=== PATIENT | male | born 1955 | race Caucasian/White ===

== ENCOUNTER → 2016-10-25 | Outpatient (CLI) | payer BC ==
[2016-10-25 07:15] LABS: EKG EKG PERFORMED
[2016-10-25 07:44] LABS: Basophils % (A) 0 %; CH 25.8; CHCM 31.6; Eosinophils # (A) 0.2 k/uL (0-0.7); Eosinophils % (A) 2 %; HCT 43.3 % (39.0-53.0); HDW 2.96; HGB 13.5 gm/dL (13.0-17.5); Hypochromasia Slight; Luc # (Auto) 0.14; Luc % (Auto) 2; Lymphocytes # (A) 1.2 k/uL (1.0-4.8); Lymphocytes % (A) 14 %; MCH 25.5 pg (25.0-35.0); MCHC 31.1 g/dL (31.0-37.0); Mean Platelet Volume 7.1; Monocytes # (A) 0.6 k/uL (0-1.0); Monocytes % (A) 7 %; Neutrophils # (A) 6.5 k/uL (1.3-7.7); Neutrophils % (A) 76 %; RBC 5.28 m/uL (4.30-5.90); RDW 13.7 % (11.5-15.5); WBC 8.5 k/uL (3.8-10.6); WBC (Perox) 8.93
[2016-10-25 07:54] LABS: Partial Thromboplastin Time 24.6 sec (22.0-30.0); Prothrombin Time 10.3 sec (9.0-12.0)
[2016-10-25 08:06] LABS: Anion Gap 12 mmol/L; Blood Urea Nitrogen 19 mg/dL (9-20); Carbon Dioxide 28 mmol/L (22-30); Chloride 104 mmol/L (98-107); Glucose 118 mg/dL (74-99); Magnesium 2.1 mg/dL (1.6-2.3); Non-African American GFR(MDRD) >60 (>60 ml/min/1.73 sqM); Potassium 4.8 mmol/L (3.5-5.1); Sodium 144 mmol/L (137-145)
--- NOTE | 2016-10-25 08:22 | XR ---
EXAMINATION TYPE: XR chest 2V DATE OF EXAM: 10/25/2016 7:56 AM COMPARISON: Prior chest x-ray 18 Mar 2013, CT abdomen pelvis 27 August 2016 HISTORY: Preop hiatal hernia surgery TECHNIQUE: Frontal and lateral views of the chest are obtained. FINDINGS: Similar findings. No airspace disease, pneumothorax, or pleural effusion. Postop changes n oted to the right shoulder. Heart is is stable, retrocardiac density compatible with large hiatal her ritika.. IMPRESSION: Hiatal hernia. No acute cardiopulmonary disease.
[2016-10-25 09:06] LABS: Hemoglobin A1C 5.6 % (4.2-6.1)
== END | disposition home or self-care (01) ==
LOC: LABPAT 06:50
PROVIDERS: ATTEND Surgery
DX: Z01.818 Encounter for other preprocedural examination (principal); K44.9 Diaphragmatic hernia without obstruction or gangrene; K43.9 Ventral hernia without obstruction or gangrene; E11.9 Type 2 diabetes mellitus without complications; E66.01 Morbid (severe) obesity due to excess calories
CPT/HCPCS: 36415; 71020; 80051; 82565; 82947; 83036; 83735; 84520; 85025; 85610; 85730; 86850; 86900; 86901; 93005

== ENCOUNTER 2017-04-30 09:19 | Day surgery (SDC) | payer BC ==
[2017-04-26 13:28] VITALS: BMI 32.1
[~2017-04-30 09:19] MED LIST: LACTATED RINGERS 1,000 ML IV SCH
[2017-04-30 11:15] VITALS: TEMP 98.7
[2017-04-30] MEDS ORDERED: LIDOCAINE 1% INJ 10MG/ML (20 ML MDV) ONE (11:15)
[2017-04-30] MEDS ORDERED: PROPOFOL 10 MG/ML 20 ML VIAL IV ONE (11:15)
--- NOTE | 2017-04-30 11:50 | P.PCN ---
Date of Procedure: 04/30/17 Preoperative Diagnosis: Postoperative Diagnosis: Procedure(s) Performed: Procedure: Esophagogastroduodenoscopy and biopsy. Preoperative diagnosis: Symptomatic reflux. Postoperative diagnosis: 1. S/P esophageal resection with gastric pull-through. 2. Retained partially digested food and fluid in the stomach freely regurgitating into the esophagus with no evidence of mechanical obstruction to the gastric outlet or any endoscopic evidence of esophagitis. 3. Esophageal biopsies obtained. Preparation and sedation: Was provided by anesthesia. Brief clinical history: With the patient on his left lateral decubitus position and after informed consent and adequate sedation, I passed the Olympus-GIF 160 video upper endoscope through the cricopharyngeus down the esophagus. The patient had prior esophagectomy and the anastomosis with the stomach was noted around 25 cm from the incisors. There was large amounts of retained partially digested food and fluid in the stomach freely regurgitating into the esophagus. No obvious esophagitis was noted endoscopically. I was able to advance the endoscope into the antrum and the pylorus appeared without any evidence of stenosis or obstruction and I was able to pass the endoscope without difficulty into the small intestine. No obvious abnormalities were seen in the small intestine within the stomach. I obtained biopsies then the endoscope was withdrawn. The patient tolerated the procedure well. Plan: The patient was reassured. It is likely that a major component of his symptoms are related to gastric emptying issues. Patient will be advised about dietary measures and consideration can be given for a trial with Reglan before meals. He will discuss that with you. I will be happy to see him in the future if his symptoms persist. Implants: Indications for Procedure: Operative Findings: Description of Procedure:
[2017-04-30 12:13] VITALS: BP 133/80; PULSE 74; RESP 20
== END 2017-04-30 12:24 | disposition home or self-care (01) ==
LOC: ORWHC2ENDO 09:19
DX: Z90.49 Acquired absence of other specified parts of digestive tract (principal); K21.0 Gastro-esophageal reflux disease with esophagitis; K20.0 Eosinophilic esophagitis; R25.1 Tremor, unspecified; Z79.82 Long term (current) use of aspirin; Z79.899 Other long term (current) drug therapy
CPT/HCPCS: 88305; 43239; J2001; J2704

== ENCOUNTER → 2017-05-10 | Outpatient (CLI) | payer BC ==
[2017-05-13 15:13] LABS: C-ANCA <1:20 Titer (<1:20); P-ANCA <1:20 Titer (<1:20)
== END | disposition home or self-care (01) ==
LOC: LABWHC1 06:54
PROVIDERS: ATTEND Psychiatry & Neurology Neurology
DX: G62.9 Polyneuropathy, unspecified (principal)
CPT/HCPCS: 36415; 82607; 83036; 84165; 84207; 85652; 86255; 86618

== ENCOUNTER → 2017-06-06 | Outpatient (CLI) | payer BC | END | disposition home or self-care (01) | LOC: LABWHC1 07:44 | PROVIDERS: ATTEND Psychiatry & Neurology Neurology | DX: Z53.9 Procedure and treatment not carried out, unspecified reason (principal) | CPT/HCPCS: 36415 ==

== ENCOUNTER → 2017-06-12 | Outpatient (CLI) | payer BC | END | disposition home or self-care (01) | LOC: LABWHC1 08:12 | PROVIDERS: ATTEND Psychiatry & Neurology Neurology | DX: G62.9 Polyneuropathy, unspecified (principal); Z85.01 Personal history of malignant neoplasm of esophagus | CPT/HCPCS: 36415 ==

== ENCOUNTER → 2017-06-17 | Outpatient (CLI) | payer BC ==
[2017-06-17 08:06] LABS: Non-African American GFR(MDRD) >60 (>60 ml/min/1.73 sqM)
--- NOTE | 2017-06-17 11:53 | MR ---
EXAMINATION TYPE: MR lumbar spine wo/w con DATE OF EXAM: 06/17/2017 COMPARISON: NONE HISTORY: rt si radiculopathy, hilary leg numbness TECHNIQUE: Multiplanar, multisequence images of the lumbar spine were acquired utilizing 10 mL intravenous Gadav ist gadolinium contrast. L1-L2: Normal disc appearance without desiccation. No herniation, protrusion or disc bulging. No ca nal stenosis is present. Foramina are patent bilaterally. L2-L3: Small broad-based disc bulge is present without focality. No evidence of neuroforaminal stenos is or spinal canal stenosis. L3-L4: Broad-based disc bulge is seen creating mild bilateral neural foraminal narrowing and no spina l canal stenosis. L4-L5: Broad-based disc bulge with tiny annular fissure is present creating moderate bilateral neural foraminal narrowing in combination with facet arthropathy and mild ligamentum flavum buckling. No sp inal canal stenosis. L5-S1: Broad-based disc bulge is seen without significant neuroforaminal stenosis or narrowing althou gh tiny annular fissure is seen left paracentral. Lumbar segments are intact. No paraspinal masses are identified. Conus medullaris has a normal appe arance. Conus medullaris terminates at T12-L1. Small T1 hypointense and T2 hypointense lesion is seen within the anterior L4 vertebral body which may correspond to a bone island. This does not demonstra te enhancement. Postsurgical this subcentimeter T2 and T1 hyperintense probable hemangioma is also no manuel. Hemangioma is also seen of T12 measuring 1.2 cm. Right lower pole of the kidneys obscured by pulsation artifact from the aorta an patient motion. No n erve root clumping or abnormal enhancement is seen. IMPRESSION: 1. No discrete disc herniation or abnormal enhancement. 2. Multilevel degenerative disc disease with annular fissures at L4-L5 and L5-S1. Disc bulge at L4-L5 creates moderate bilateral neural foraminal narrowing in combination with facet arthropathy.
== END | disposition home or self-care (01) ==
LOC: RADMRIMAIN 07:45
PROVIDERS: ATTEND Psychiatry & Neurology Neurology
DX: M51.17 Intervertebral disc disorders with radiculopathy, lumbosacral region (principal); M99.73 Connective tissue and disc stenosis of intervertebral foramina of lumbar region; M12.88 Other specific arthropathies, not elsewhere classified, other specified site; R20.2 Paresthesia of skin
CPT/HCPCS: 82565; 72158; A9581

== ENCOUNTER → 2017-07-30 | Outpatient (CLI) | payer BC ==
[2017-07-30 09:55] LABS: CH 26.9; CHCM 30.2; HCT 45.9 % (39.0-53.0); HDW 2.53; HGB 14.1 gm/dL (13.0-17.5); Hypochromasia Marked; MCH 27.5 pg (25.0-35.0); MCHC 30.7 g/dL (31.0-37.0); MCV 89.5 fL (80.0-100.0); RBC 5.13 m/uL (4.30-5.90); RDW 15.4 % (11.5-15.5); WBC 7.5 k/uL (3.8-10.6)
[2017-07-30 10:18] LABS: ALT 37 U/L (21-72); AST 21 U/L (17-59); Alkaline Phosphatase 100 U/L (38-126); Anion Gap 11 mmol/L; Blood Urea Nitrogen 22 mg/dL (9-20); Calcium 9.1 mg/dL (8.4-10.2); Carbon Dioxide 28 mmol/L (22-30); Chloride 105 mmol/L (98-107); Glucose 104 mg/dL (74-99); Non-African American GFR(MDRD) >60 (>60 ml/min/1.73 sqM); Potassium 5.3 mmol/L (3.5-5.1); Sodium 144 mmol/L (137-145); Total Bilirubin 0.3 mg/dL (0.2-1.3); Total Protein 7.1 g/dL (6.3-8.2)
--- NOTE | 2017-07-30 10:22 | CT ---
EXAMINATION TYPE: CT chest w con DATE OF EXAM: 07/30/2017 COMPARISON: 07/30/2016 HISTORY: follow up to esophagus CA CT DLP: 813 mGycm Automated exposure control for dose reduction was used. CONTRAST: CT scan of the chest is performed with IV Contrast, patient injected with 100 mL of Omnipaque 300. FINDINGS: LUNGS: The lungs are grossly clear, there is no concerning parenchymal mass or nodule identified. T here is no pleural effusion or pneumothorax seen. The tracheobronchial tree is patent. MEDIASTINUM: There is evidence of esophagectomy and gastric pull-through procedure. Overall appearanc e is stable relative to the prior study. No evidence for recurrent or residual tumoral mass. Thoracic aorta is of normal caliber. The heart is not enlarged. UPPER ABDOMEN: Nodular thickening of the right adrenal gland. OTHER: Persistent nodule right thyroid lobe. IMPRESSION: 1. Stable gastric pull-through procedure with esophagectomy. No evidence for recurrent neoplasm. 2 st able nodular thickening right adrenal gland.
== END | disposition home or self-care (01) ==
LOC: RADCTMAIN 09:29
PROVIDERS: ATTEND Thoracic Surgery (Cardiothoracic Vascular Surgery)
DX: C15.5 Malignant neoplasm of lower third of esophagus (principal); Z90.49 Acquired absence of other specified parts of digestive tract
CPT/HCPCS: 80053; 85027; 71260; 36415; Q9967

== ENCOUNTER → 2018-04-11 | Outpatient (CLI) | payer BC ==
--- NOTE | 2018-04-11 08:50 | CT ---
EXAMINATION TYPE: CT chest w con DATE OF EXAM: 04/11/2018 COMPARISON: CT chest July 30, 2017 and older studies. Outside chest x-ray from yesterday. HISTORY: RLL pneumonia, history of esophagus CA CT DLP: 595.2 mGycm. Automated Exposure Control for Dose Reduction was Utilized. TECHNIQUE: CT scan of the thorax is performed following with IV Contrast, patient injected with 100 mL of Isovue 300. FINDINGS: LUNGS: There is persistent minimal medial right basilar linear scarring and/or atelectasis. No new s uspicious nodule or mass is present. There is no pleural effusion or pneumothorax seen bilaterally. The tracheobronchial tree is patent. MEDIASTINUM: There are no greater than 1 cm hilar or mediastinal lymph nodes. No cardiomegaly or pe ricardial effusion is seen. There is three-vessel coronary calcification which is noted marker for co ronary artery disease. Surgical changes from esophagectomy and gastric pull-up procedure are redemons trated. OTHER: Slight nodular thickening right adrenal gland axial image 60 is unchanged from multiple older studies and presumed benign. IMPRESSION: No suspicious new or acute pulmonary process. Postsurgical changes redemonstrated and sta ble.
== END | disposition home or self-care (01) ==
LOC: RADCTMAIN 07:32
PROVIDERS: ATTEND Internal Medicine
DX: J18.1 Lobar pneumonia, unspecified organism (principal)
CPT/HCPCS: 71260; Q9967

== ENCOUNTER → 2018-07-30 | Outpatient (CLI) | payer BC ==
--- NOTE | 2018-07-30 11:21 | CT ---
EXAMINATION TYPE: CT chest w con DATE OF EXAM: 07/30/2018 COMPARISON: 04/11/2018 HISTORY: Esophageal cancer CT DLP: 518.40 mGycm Automated exposure control for dose reduction was used. CONTRAST: CT scan of the chest is performed with IV Contrast, patient injected with 100 ml mL of Isovue 300. FINDINGS: LUNGS: There is persistent minimal medial right basilar linear scarring and/ or atelectasis. No new s uspicious nodule or mass is present. There is no pleural effusion or pneumothorax seen bilaterally. T he tracheobronchial tree is patent. MEDIASTINUM: There are no greater than 1 cm hilar or mediastinal lymph nodes. No pericardial effusi on is seen. There is three- vessel coronary calcification which is noted marker for coronary artery disease. Surg ical changes from esophagectomy and gastric pull-up procedure are redemonstrated. OTHER: Nodularity to the right adrenal gland is stable. Hypertrophic and degenerative change of the vertebral column. Thyroid nodule noted involving the right lobe. Chronic appearing rib deformity with in the upper posterior right rib cage. IMPRESSION: 1. Stable postsurgical change with no pathologic adenopathy or suspicious nodule. 2. Right thyroid nodule. 3. Stable right adrenal gland nodularity
== END ==
LOC: RADCTMAIN 08:40
PROVIDERS: ATTEND Thoracic Surgery (Cardiothoracic Vascular Surgery)
DX: C15.5 Malignant neoplasm of lower third of esophagus (principal)
CPT/HCPCS: 71260; Q9967

== ENCOUNTER → 2018-09-17 | Outpatient (CLI) | payer BC ==
[2018-09-17 09:39] LABS: HCT 45.4 % (39.0-53.0); HGB 15.3 gm/dL (13.0-17.5); MCH 30.3 pg (25.0-35.0); MCHC 33.8 g/dL (31.0-37.0); MCV 89.9 fL (80.0-100.0); Mean Platelet Volume 6.5; Platelet Count 245 k/uL (150-450); RBC 5.05 m/uL (4.30-5.90); RDW 13.2 % (11.5-15.5); WBC 7.7 k/uL (3.8-10.6)
[2018-09-17 09:53] LABS: Partial Thromboplastin Time 24.1 sec (22.0-30.0); Prothrombin Time 9.9 sec (9.0-12.0)
[2018-09-17 09:58] LABS: ALT 26 U/L (21-72); AST 21 U/L (17-59); Albumin 3.8 g/dL (3.5-5.0); Alkaline Phosphatase 73 U/L (38-126); Anion Gap 10 mmol/L; Blood Urea Nitrogen 21 mg/dL (9-20); Calcium 9.3 mg/dL (8.4-10.2); Carbon Dioxide 24 mmol/L (22-30); Chloride 108 mmol/L (98-107); Glucose 110 mg/dL (74-99); Potassium 4.7 mmol/L (3.5-5.1); Sodium 142 mmol/L (137-145); Total Bilirubin 0.4 mg/dL (0.2-1.3); Total Protein 6.6 g/dL (6.3-8.2)
[2018-09-17 10:07] LABS: Appearance,Urine Clear (Clear); Bilirubin,Urine Negative (Negative); Blood,Urine Trace (Negative); Color,Urine Yellow; Glucose,Urine (UA) Negative (Negative); Ketones,Urine Negative (Negative); Leukocyte Esterase,Urine Negative (Negative); Mucus,Urine Rare /hpf; Nitrite,Urine Negative (Negative); Protein,Urine Negative (Negative); RBC,Urine 3 /hpf (0-5); Specific Gravity,Urine 1.023 (1.001-1.035); Urobilinogen,Urine <2.0 mg/dL (<2.0); WBC,Urine 2 /hpf (0-5)
== END ==
LOC: LABPAT 08:24
PROVIDERS: ATTEND Orthopaedic Surgery
DX: Z01.818 Encounter for other preprocedural examination (principal); Z01.812 Encounter for preprocedural laboratory examination
CPT/HCPCS: 36415; 80053; 81001; 85027; 85610; 85730; 87070; 93005

== ENCOUNTER 2018-10-07 09:15 | Inpatient (IN) | payer BC, MEDICARE ==
[~2018-10-07 09:15] MED LIST changes: +ACETAMINOPHEN TAB 500 MG TAB PO ONE; +DEXAMETHASONE SOD PHOSPHATE 10 MG/ML 1 ML VIAL IV ONE; +HYDROmorphone 0.5 MG/0.5 ML SYRINGE IVP PRN; +LIDOCAINE 1% 20 ML VIAL (10MG/ML) FOR IV START INTRADERMA PRN; +MELOXICAM 7.5 MG TAB PO ONE; +MIDAZOLAM (PF) 2 MG/2 ML VIAL IV PRN; +ONDANSETRON 4 MG/2 ML VIAL IVP ONE; +ROPIVACAINE 246.25 MG, EPINEPHrine 0.5 MG, KETOROLAC 30 MG, cloNIDine HCL/PF 80 MCG, WA... MISCELLANE ONE; +SCOPOLAMINE 1.5MG/72HR PATCH TRANSDERM ONE; +TRANEXAMIC ACID 1,000 MG in SODIUM CHLORIDE 0.9% 50 ML IVPB ONE; +ceFAZolin IN SWFI 2 GM/20 ML SYRINGE IVP ONE
[2018-10-07] MEDS ORDERED: NA PHOS,M-B/NA PHOS,DI-BA 133 ML ENEMA RECTAL PRN (11:12)
[2018-10-07] MEDS ORDERED: HYDROmorphone 0.5 MG/0.5 ML SYRINGE IVP PRN ×2 (11:12)
[2018-10-07] MEDS ORDERED: DIAZEPAM 5 MG TAB PO PRN (11:12)
[2018-10-07] MEDS ORDERED: hydrOXYzine PAMOATE 25 MG CAP PO PRN (11:12)
[2018-10-07] MEDS ORDERED: HYDROmorphone 1 MG/ML 1 ML SYRINGE IVP PRN (11:12)
[2018-10-07] MEDS ORDERED: MAGNESIUM HYDROXIDE 2,400 MG/10 ML CUP PO PRN (11:12)
[2018-10-07] MEDS ORDERED: NALOXONE 0.4 MG/ML 1 ML VIAL IV PRN (11:12)
[2018-10-07] MEDS ORDERED: HYDROcodone/APAP 5-325MG 1 EACH TAB PO PRN ×2 (11:12)
[2018-10-07] MEDS ORDERED: ONDANSETRON 4 MG/2 ML VIAL IVP PRN (11:12)
[2018-10-07] MEDS ORDERED: BISACODYL 10 MG SUPP RECTAL PRN (11:12)
[2018-10-07] MEDS ORDERED: SODIUM CHLORIDE 0.9% 1,000 ML IV SCH (11:15)
[2018-10-07] MEDS ORDERED: TRANEXAMIC ACID 1,000 MG/10 ML VIAL ONE (11:21)
[2018-10-07] MEDS ORDERED: PROPOFOL 10 MG/ML 20 ML VIAL IV ONE (11:21)
[2018-10-07] MEDS ORDERED: PHENYLEPHRINE-0.9% NACL SYG 1 MG/10 ML SYRINGE ONE (11:21)
[2018-10-07] MEDS ORDERED: MIDAZOLAM 2 MG/2 ML VIAL ONE (11:21)
[2018-10-07] MEDS ORDERED: SODIUM CHLORIDE 0.9% 100 ML BAG ONE (11:21)
[2018-10-07] MEDS ORDERED: ePHEDrine SULFATE/0.9% NACL/PF 50 MG/5 ML SYRINGE IV ONE (11:21)
[2018-10-07] MEDS ORDERED: ceFAZolin 3,000 MG in SODIUM CHLORIDE 0.9% IRRIGATIO 3,000 ML IRRIGATION ONE (11:53)
[2018-10-07] MEDS ORDERED: LACTATED RINGERS 1,000 ML IV ONE ×2 (11:59→13:08)
[2018-10-07] MEDS ORDERED: ROPIVACAINE 1,100 MG, SODIUM CHLORIDE 0.9% 500 ML 330 ML MISCELLANE PRN ×2 (12:22)
--- NOTE | 2018-10-07 12:30 | P.ONQ ---
Anesthesiology Proc Note - PNB - Peripheral Nerve Block Performed Right Adductor Canal Infusion Time Out Performed: Yes Procedure Start Time: 10:23 Procedure Stop Time: :34 Indication: Acute Post-Operative Pain, Requested by physician Sedation Type: Sedate with meaningful contact maintained Preparation: Sterile Dressing Position: Supine Catheter: Indwelling Needle Types: On-Q Needle Size: 100mm (4") Needle Gauge: 21 Technique: Ultrasound Injectate: 0.5% Ropivacaine (see comment for volume) (ropi .5% 25 cc) Blood Aspirated: No Pain Paresthesia on Injection Noted: No Resistance on Injection: Normal Events: Uneventful and Well Tolerated
--- NOTE | 2018-10-07 12:45 | P.OP ---
Date of Procedure: 10/07/18 Preoperative Diagnosis: Severe osteoarthritis right knee Postoperative Diagnosis: Severe osteoarthritis right knee Procedure(s) Performed: Right total knee arthroplasty Implants: Jimenez [employer]hew Journey II CR Oxinium cruciate retaining femoral component size 6, right [employer] Journey right nonporous tibial baseplate size 6 [employer] Journey II, XLPE CR articular insert, size 9 mm, Size 5-6 right [employer] Journey BCS resurfacing oval patellar component, 32 mm All components were cemented using [place]os R bone cement.. The articulation is Oxinium on polyethylene. Anesthesia: spinal Surgeon: Everton Huitron Welt Drawer #1: Moni Phillips Estimated Blood Loss (ml): 50 Pathology: other (Bone and cartilage) Condition: stable Disposition: PACU Indications for Procedure: After failure of conservative treatment we discussed the surgical and nonsurgical treatment options at length. Patient wishes to proceed with a total knee arthroplasty. Complications specific to this procedure were discussed at length, including but not limited to infection, bleeding, stiffness , and nerve injury. Patient is aware of all these complications and informed consent was obtained Operative Findings: The operative findings are consistent with severe osteoarthritis of the right knee Description of Procedure: Patient was seen in the preoperative area consent was reviewed and operative site was marked with a skin marker. An adductor canal pain catheter was placed by anesthesia in the preoperative area. Patient was then brought to the operating room and given preoperative antibiotics intravenously. A spinal anesthetic was administered by the anesthesia department. A tourniquet was placed on the upper thigh and the lower extremity was prepped and draped in usual sterile fashion. A gram of transexamic acid was given. A universal timeout was then performed which confirmed the patient's name, surgical site, ALLERGIES, and consent. The lower extremity was then exsanguinated and tourniquet was inflated to 250 mmHg. A standard and anterior midline approach to the knee was performed. The skin and subcutaneous tissue was dissected down to the patellar tendon. A medial parapatellar arthrotomy was then performed. The knee was then extended, the patellar was everted, and the knee was again flexed. Anterior horns of both menisci were excised, and a release was performed to the posterior medial aspect of the knee. On gross visual inspection, there was complete loss of articular cartilage in the medial and patellofemoral joint spaces. There was also significant cartilage damage in the lateral compartment. There were multiple periarticular osteophytes which were then removed with a Ronguer. The femoral canal was then opened with the appropriate drill, and the intramedullary femoral cutting guide was then placed and set for 5 of valgus. The distal femoral cutting block was then pinned in place, and the distal femur was then cut. The cutting block was then removed and the cut was checked for flatness. Next, the sizing guide was then placed and set for 3 external rotation based off of the epicondylar axis and Whitesides line. After the femur was sized, the appropriate 4-in-1 cutting block was then pinned in place. The anterior condyles were cut without notching. The posterior and chamfer cuts were performed while protecting the collateral ligaments. The cutting block was then removed, and the femoral canal was plugged with autologous bone. Attention was then directed to the tibia. The remaining ACL was removed with a Ronguer, and the tibia was then gently subluxed forward with a large bent knee retractor. Any remaining menisci was excised. The posterior lateral corner was cauterized in order to cauterize the lateral geniculate artery. The extra medullary tibial cutting guide was then placed, set for the appropriate rotation , slope, and depth of resection. The proximal tibia cutting guide was then pinned in place. Proximal tibia was then cut and sized. Next trials were then placed with the appropriate-sized insert. The knee was able to fully extend and flex to 130 and was stable throughout all range of motion. The knee was then extended, patella everted. Patella was then measured, and then using an osteotomy guide, the patella was cut at the appropriate level. The patella was then measured and drilled and the patella trial was then placed. The knee was then taken through range of motion with the patella trial and the patella tracked normally. The knee was then extended patella trial was then removed and the patella was everted. Knee was then flexed and lug holes were drilled through the femoral trial and the femoral trial was then removed. The tibial was then exposed, and the tibial broach guide was then pinned in place after it was set for the appropriate rotation to allow for the most coverage without overhang. The tibia was then reamed and broached. The cut surfaces of bone were then irrigated with pulsatile lavage. The posterior structures were injected with the ropivacaine solution. The knee was also irrigated with Irrisept solution. The components were then opened, the cement was mixed, and the components were then cemented in place. The cement was allowed to harden with the knee in full extension. While the cement was hardening, the remaining soft tissues were then injected with a ropivacaine solution, which consisted of 246.25 mg of ropivacaine, 0.5 mg of epinephrine, 30 mg of Toradol, 80 g of clonidine, and 48.45 mL of sterile water, for a total of 100 mL of fluid injected. After the cemented hardened. The tourniquet was released, and hemostasis was obtained. A second gram of transexamic acid was given. The knee was again irrigated. The knee was again taken through range of motion and found to be stable throughout all range of motion of 0-130 , and the patella tracked normally. The fascia was then closed with #2 strata fix suture. The subcutaneous tissue was closed with 3-0 Vicryl and 3-0 strata fix. Dermabond glue was used for the skin and placed with the knee in flexion. The patient was placed in a sterile silver dressing. Patient was then transferred to recovery room in stable condition. The library media assistant JEWELS Pang was required due the complexity surgery and the need for a skilled surgical brace maker. She assisted in positioning, draping, retraction, and closure of the wound.
--- NOTE | 2018-10-07 14:19 | XR ---
EXAMINATION TYPE: XR knee limited RT DATE OF EXAM: 10/07/2018 COMPARISON: NONE TECHNIQUE: Two views submitted HISTORY: Post op FINDINGS: There is a prosthetic knee in near anatomic alignment. There is soft tissue edema and emphysema. IMPRESSION: 1. Postoperative change. Appears in near-anatomic alignment
[2018-10-07 16:23] VITALS: BMI 32.8
[2018-10-07] MEDS: ceFAZolin IN SWFI 2 GM/20 ML SYRINGE IVP SCH (19:35)
[2018-10-07] MEDS: cloNIDine HCL 0.1 MG TAB PO SCH (20:49)
[2018-10-07] MEDS: FAMOTIDINE 20 MG TAB PO SCH (20:49)
[2018-10-07] MEDS ORDERED: SENNOSIDES-DOCUSATE SODIUM 1 EACH TAB PO SCH (21:00)
[2018-10-07 21:30] VITALS: RESP 16
[2018-10-07] MEDS ORDERED: FORMOTEROL FUMARATE 20 MCG/2 ML NEBU INHALATION SCH (21:52)
[2018-10-08] MEDS: ceFAZolin IN SWFI 2 GM/20 ML SYRINGE IVP SCH (02:56)
[2018-10-08] MEDS: AMANTADINE HCL 100 MG CAP PO SCH ×2 (02:56→08:10)
--- NOTE | 2018-10-08 06:10 | P.PN ---
Progress Note - Text Progress Note Date: 10/08/18 My adductor canal catheter rounds Right adductor canal catheter postoperative day 1 Patient VAS 4 out of 10 Tolerating food well Denies any complaints Catheter site clean dry and intact Continue current plan and management primary team to manage
[2018-10-08] MEDS ORDERED: PANTOPRAZOLE 40 MG TABLET PO SCH (07:30)
--- NOTE | 2018-10-08 07:33 | CONS ---
CONSULTATION DATE OF SERVICE: October 07, 2018. REASON FOR CONSULTATION: Medical management requested by Dr. Huitron. CONSULTATION: This is a pleasant 63-year-old patient of Dr. Rivas. The patient has undergone right total knee arthroplasty. Postprocedure no chest pain or short of breath. No nausea, vomiting. Chronic stable medical conditions include COPD, GERD, hyperlipidemia, hypertension, peripheral neuropathy, and some baseline tremors. Sitting up. Did tolerate his evening meal. Pain is controlled. Denies any cardiac history. REVIEW OF SYSTEMS: CONSTITUTIONAL: None. HEENT: None. RESPIRATORY: Occasionally short of breath. CARDIOVASCULAR: Heartburn. GENITOURINARY none. MUSCULOSKELETAL: Arthritic pain in joints. DERMATOLOGICAL, HEMATOLOGIC, LYMPHATIC: none. PSYCHIATRY none. NEUROLOGICAL: Occasional tremors. PAST MEDICAL HISTORY: COPD, GERD, hyperlipidemia, hypertension, sleep apnea in the past, peripheral neuropathy of arms and legs. Esophageal cancer. The patient has lost about pounds. Uses a cane. Tremors. PAST SURGICAL HISTORY: Appendectomy, cardiac catheterization, bilateral shoulder rotator cuff, bilateral elbow surgery to be removed, bilateral calf , right knee arthroscopy, surgery for esophageal cancer. SOCIAL HISTORY: Smoked about one pack a day for 30 years, stopped in , , retired [employer]. FAMILY HISTORY: Colon cancer. HOME MEDICATIONS: 1. Catapres 0.1 mg p.o. b.i.d. 2. Carbamazepine ER 200 mg b.i.d. 3. Omeprazole 40 mg a day. 4. Atrovent 1 vial inhalation q.i.d. p.r.n. 5. 1 puff b.i.d. 6. Pepcid 20 mg b.i.d. 7. Aspirin 81 mg daily. 8. Symmetrel 100 mg p.o. b.i.d. ALLERGIES: None. PHYSICAL EXAMINATION: VITAL SIGNS: Temperature 97.9, pulse 94, respiration 16, blood pressure 113/62, pulse ox 96% on room air. GENERAL APPEARANCE: Well built. BMI 32.9. Sitting at the edge of the bed, comfortable. EYES: Pupils equal. Conjunctivae normal. HEENT: External appearance of nose and ears normal. Oral cavity normal. NECK: JVD not raised. Mass not palpable. RESPIRATORY effort normal. LUNGS: Slightly decreased breath sounds. CARDIOVASCULAR: 1st and 2nd sounds normal. No edema. ABDOMEN: Soft, nontender. Liver and spleen not palpable. LYMPHATICS: No lymph nodes palpable in the neck and axilla. PSYCHIATRY: Alert and oriented x3. Mood and affect normal. NEUROLOGICAL: Pupils equal. Cranial nerves grossly intact. Power and sensation grossly intact. MUSCULOSKELETAL: Dressing over the right knee. INVESTIGATIONS: Blood work from 09/17/2018 shows a white count 7.7, hemoglobin 15.3, potassium 4.7, BUN 21, creatinine 0.76. ASSESSMENT: 1. Right total knee arthroplasty. 2. Chronic obstructive pulmonary disease in an ex-smoker. 3. Gastroesophageal reflux disease. 4. Hyperlipidemia. 5. Essential hypertension. 6. Peripheral neuropathy. 7. History of esophageal cancer treated with surgery 7 years ago. PLAN: Home medications are resumed. The patient on Xarelto for DVT prophylaxis. Also getting IV fluids. Pain is well controlled. Questions were answered. Thank you, Dr. Huitron. Copy to Dr. Rivas. MMODL / IJN: [id number] /
[2018-10-08] MEDS ORDERED: IPRATROPIUM 0.5 MG/2.5 ML NEBU INHALATION SCH (08:00)
[2018-10-08] MEDS: cloNIDine HCL 0.1 MG TAB PO SCH (08:10)
[2018-10-08] MEDS: FAMOTIDINE 20 MG TAB PO SCH (08:10)
[2018-10-08 08:23] VITALS: BP 145/89; PULSE 84; TEMP 98.1
--- NOTE | 2018-10-08 08:39 | P.DS ---
Providers Date of admission: 10/07/18 09:31 Expected date of discharge: 10/08/18 Attending physician: Everton Huitron Consults: 10/07/18 11:12 Consult Physician Routine Consulting Provider: Gurdeep Dixon Consult Reason/Comments: medical management and anticoagulation Do you want consulting provider notified?: Yes Primary care physician: Ronal Rivas - Discharge Diagnosis(es) (1) Primary osteoarthritis of right knee Current Visit: Yes Status: Acute (2) S/P total knee arthroplasty Current Visit: Yes Status: Acute Hospital Course: This is a 63-year-old male with known history of degenerative arthritis of the right knee. The patient presents for evaluation. After discussion and consideration patient elects to proceed with total knee arthroplasty. The patient is seen preoperatively by Dr. Huitron and medically cleared for surgery by their primary care physician. Patient is admitted to [facility] on 10/07/2018 for total knee arthroplasty. The procedures performed without complication or sequelae. The patient is doing well postoperatively. Labs and vital signs are stable on day of discharge. On day of discharge patient's knee incision is healing well. There is minimal erythema. There is no drainage noted at this time. There is minimal soft tissue swelling to the knee. Patient has full foot and ankle motion without difficulty or pain. Neurovascular status to the right lower extremity is intact. Patient is discharged home in good condition. Please see med rec for accurate list of home medications. Plan - Discharge Summary Discharge Rx Participant: Yes New Discharge Prescriptions: New Rivaroxaban [Xarelto] 10 mg PO DAILY 11 Days #11 tab HYDROcodone/APAP 5-325MG [[place] 5-325] 1 - 2 tab PO Q4-6H PRN #84 tab PRN Reason: Pain Sennosides [Senokot] 1 tab PO BID #60 tablet No Action carBAMazepine [carBAMazepine ER] 200 mg PO BID Famotidine [Pepcid] 20 mg PO BID Amantadine HCl [Symmetrel] 100 mg PO BID Omeprazole 40 mg PO DAILY Glycopyrrolate/Formoterol Fum [Bevespi Aerosphere Inhaler] 1 puff INHALATION RT-BID cloNIDine HCL [Catapres] 0.1 mg PO BID Aspirin [Adult Low Dose Aspirin EC] 81 mg PO DAILY Ipratropium 0.02% 1 vial INHALATION RT-QID PRN PRN Reason: Shortness Of Breath Discharge Medication List carBAMazepine [carBAMazepine ER] 200 mg PO BID 09/18/16 [History] Amantadine HCl [Symmetrel] 100 mg PO BID 04/26/17 [History] Famotidine [Pepcid] 20 mg PO BID 04/26/17 [History] Omeprazole 40 mg PO DAILY 04/26/17 [History] Aspirin [Adult Low Dose Aspirin EC] 81 mg PO DAILY 10/02/18 [History] Glycopyrrolate/Formoterol Fum [Bevespi Aerosphere Inhaler] 1 puff INHALATION RT- BID 10/02/18 [History] Ipratropium 0.02% 1 vial INHALATION RT-QID PRN 10/02/18 [History] cloNIDine HCL [Catapres] 0.1 mg PO BID 10/02/18 [History] HYDROcodone/APAP 5-325MG [[place] 5-325] 1 - 2 tab PO Q4-6H PRN #84 tab 10/08/18 [ Rx] Rivaroxaban [Xarelto] 10 mg PO DAILY 11 Days #11 tab 10/08/18 [Rx] Sennosides [Senokot] 1 tab PO BID #60 tablet 10/08/18 [Rx] Follow up Appointment(s)/Referral(s): Everton Huitron DO [Doctor of Osteopathic Medicine] - 2 Weeks Ambulatory/Diagnostic Orders: Continuous Passive Motion (CPM) Machine [DME.AMB1] Time Frame: 3 Weeks, Location : None Selected Activity/Diet/Wound Care/Special Instructions: Weightbearing as tolerated with a walker. CPM 5-6h daily. Leave dressing intact. May be removed on 10/17/2018. May shower with dressing on. Please follow up with [facility] and call with any questions or concerns, . Discharge Disposition: HOME WITH HOME HEALTH SERVICES
[2018-10-08] MEDS ORDERED: ASPIRIN 81 MG PO SCH (09:00)
[2018-10-08] MEDS ORDERED: RIVAROXABAN 10 MG TAB PO SCH (09:00)
[2018-10-08 09:17] LABS: Basophils % (A) 0 %; Eosinophils # (A) 0.1 k/uL (0-0.7); Eosinophils % (A) 2 %; HCT 37.1 % (39.0-53.0); Lymphocytes # (A) 1.1 k/uL (1.0-4.8); Lymphocytes % (A) 12 %; MCH 29.4 pg (25.0-35.0); MCHC 32.3 g/dL (31.0-37.0); Mean Platelet Volume 6.5; Monocytes # (A) 0.6 k/uL (0-1.0); Monocytes % (A) 7 %; Neutrophils % (A) 78 %; Platelet Count 212 k/uL (150-450); RBC 4.08 m/uL (4.30-5.90); RDW 13.4 % (11.5-15.5)
== END 2018-10-08 13:23 | disposition home health service (06) | DRG 470 ==
LOC: 2ORMAIN 09:31 → 4SSUR 13:04
PROVIDERS: ADMIT Orthopaedic Surgery; ATTEND Orthopaedic Surgery
PROC: 0SRC069 Replacement of Right Knee Joint with Oxidized Zirconium on Polyethylene Synthetic Substitute, Cemented, Open Approach (ICD-10-PCS; principal; 2018-10-07 11:20)
DX: M17.11 Unilateral primary osteoarthritis, right knee (principal); G62.9 Polyneuropathy, unspecified; J44.9 Chronic obstructive pulmonary disease, unspecified; K21.9 Gastro-esophageal reflux disease without esophagitis; E78.5 Hyperlipidemia, unspecified; G47.30 Sleep apnea, unspecified; G25.81 Restless legs syndrome; H91.90 Unspecified hearing loss, unspecified ear; I10 Essential (primary) hypertension; Z79.82 Long term (current) use of aspirin; Z79.899 Other long term (current) drug therapy; Z85.01 Personal history of malignant neoplasm of esophagus; Z90.49 Acquired absence of other specified parts of digestive tract; Z87.891 Personal history of nicotine dependence; Z80.0 Family history of malignant neoplasm of digestive organs
CPT/HCPCS: 85025; 88305; 88311

== ENCOUNTER 2019-03-24 08:26 | Day surgery (SDC) | payer BC, MEDICARE ==
[2019-03-20 09:16] VITALS: BMI 33.0
[2019-03-24 08:50] VITALS: RESP 18; TEMP 97.6
[2019-03-24] MEDS ORDERED: LACTATED RINGERS 1,000 ML IV ONE ×2 (09:07)
--- NOTE | 2019-03-24 09:26 | P.PCN ---
Date of Procedure: 03/24/19 Description of Procedure: Procedure: Lumbar Puncture . Preoperative Diagnoses: rule out M.S Postoperative Diagnosis: rule out M.S Anesthesia: Local with 5 ML's of 1% lidocaine Condition: stable. Complications: none. Description of the procedure: Patient was consented in the preoperative area we discussed the risks benefits and alternatives to the procedure. The patient was Brought the patient into the procedure room and she was placed in the lateral position. The back was cleansed with iodine 3. Fluoroscopy was used to identify the pain lumbar level. At that point lidocaine 1% was used to anesthetize the skin, total of 5 mL was used. A 22 gauge spinal needle was advanced until spinal fluid was aspirated through the needle and a three - way stop cock. Opening pressure was 22. CSF was obtained and sent off to laboratory for examination. Band-Aid was placed after the procedure the patient was instructed to lay flat for the next few hours. The patient was discharged from the PACU in stable condition.
[2019-03-24] MEDS ORDERED: IV FLUID CONTINUATION 1,000 ML IV ONE (09:30)
[2019-03-24 09:48] VITALS: BP 167/78; PULSE 78
[2019-03-24 09:54] LABS: T4, Free (Free Thyroxine) 1.13 ng/dL (0.78-2.19)
[2019-03-24 13:24] LABS: Glucose,CSF 66 mg/dL (40-70); Total Protein,CSF 59 mg/dL (12-60)
[2019-03-24 14:44] LABS: Appearance,CSF Clear; CSF Tube Number 3; Nucleated Cells, CSF 0 u/L (0-5); Red Blood Cell,CSF 0 u/L (0-10)
[2019-03-24 16:53] LABS: Rheumatoid Factor 154 IU/mL (0-15)
[2019-03-24 18:11] LABS: Anti-DNA, DS unit <1.0 IU/mL; DNA Double-Stranded NEGATIVE (NEGATIVE); RNP 0.3 AI
[2019-03-25 13:40] LABS: APTT 41 Sec(s) (<43); DRVVT 1:1 Mix 41 Sec(s) (<44); Dilute Russell Viper Venom 46 Sec(s) (<44)
[2019-03-26 15:02] LABS: IgG - CSF 2.9 mg/dL (0.0 - 3.4); Immunoglobulin G 998 mg/dL (700 - 1600)
[2019-03-27 10:35] LABS: VDRL, Qualitative CSF Nonreactive (Nonreactive)
[2019-03-27 14:30] LABS: Lyme IgG/IgM 0.05 Index
== END 2019-03-24 10:00 | disposition home or self-care (01) ==
LOC: ORPAIN 08:26
PROVIDERS: ATTEND Hospitalist
DX: R20.2 Paresthesia of skin (principal)
CPT/HCPCS: 86592 ×2; 86235 ×3; 84439; 88108; 84157; 82945; 82040; 82042; 82784; 83916; 83873; 84443; 84450; 84460; 85730; 86431; 85613; 89050; 86618; 86038; 86225; 87801; 62270; J2001

== ENCOUNTER 2019-05-12 11:57 | Inpatient (IN) | payer BC ==
[2019-05-12] MEDS ORDERED: ACETAMINOPHEN TAB 500 MG TAB PO STA (12:46)
[2019-05-12] MEDS ORDERED: IBUPROFEN 600 MG TAB PO STA (12:48)
[2019-05-12] MEDS ORDERED: HYDROmorphone 1 MG/ML 1 ML SYRINGE IVP STA (12:48)
[2019-05-12 13:42] LABS: Partial Thromboplastin Time 26.8 sec (22.0-30.0); Prothrombin Time 10.9 sec (9.0-12.0)
[2019-05-12 13:51] LABS: ALT 19 U/L (21-72); AST 19 U/L (17-59); African American GFR (CKD) >90 (>60 ml/min/1.73 sqM); Albumin 3.7 g/dL (3.5-5.0); Alkaline Phosphatase 75 U/L (38-126); Anion Gap 11 mmol/L; Blood Urea Nitrogen 18 mg/dL (9-20); Calcium 8.8 mg/dL (8.4-10.2); Carbon Dioxide 23 mmol/L (22-30); Chloride 102 mmol/L (98-107); Glucose 101 mg/dL (74-99); Potassium 4.2 mmol/L (3.5-5.1); Sodium 136 mmol/L (137-145); Total Protein 6.6 g/dL (6.3-8.2)
--- NOTE | 2019-05-12 13:53 | XR ---
EXAMINATION TYPE: XR chest 2V DATE OF EXAM: 05/12/2019 COMPARISON: Prior chest x-ray dated 05/11/[address] chest 07/30/2018, chest x-ray 04/10/[address] 04/11/2018 HISTORY: Fever, pneumonia TECHNIQUE: Frontal and lateral views of the chest are obtained. FINDINGS: There is bibasilar increased density, density in the right lung base thought likely relate d to the gastric pull-through. No evident pneumothorax or pleural effusion. The cardiac silhouette si ze is stable. Postop change noted in the right shoulder. The osseous structures are intact. IMPRESSION: Findings suggest left lower lobe pneumonia. Postop changes. Follow-up recommended.
[2019-05-12 14:21] LABS: Basophils % (A) 0 %; Eosinophils # (A) 0.1 k/uL (0-0.7); Eosinophils % (A) 0 %; HCT 42.9 % (39.0-53.0); Lymphocytes # (A) 1.3 k/uL (1.0-4.8); Lymphocytes % (A) 7 %; MCH 28.3 pg (25.0-35.0); MCHC 32.7 g/dL (31.0-37.0); MCV 86.5 fL (80.0-100.0); Mean Platelet Volume 6.8; Monocytes % (A) 5 %; Neutrophils # (A) 17.4 k/uL (1.3-7.7); Neutrophils % (A) 87 %; Platelet Count 269 k/uL (150-450); RBC 4.96 m/uL (4.30-5.90); RDW 14.7 % (11.5-15.5); WBC 19.9 k/uL (3.8-10.6)
[2019-05-12] MEDS: SODIUM CHLORIDE 0.9% 500 ML 500 ML IV SCH ×2 (14:29→14:30)
[2019-05-12] MEDS ORDERED: IPRATROPIUM-ALBUTEROL 3 ML NEB INHALATION STA (14:59)
--- NOTE | 2019-05-12 15:02 | ED ---
General Adult HPI - General Chief complaint: Shortness of Breath Stated complaint: pneumonia-sent by Time Seen by Provider: 05/12/19 12:00 Source: patient, RN notes reviewed Mode of arrival: wheelchair Limitations: no limitations - History of Present Illness Initial comments: This is a 63-year-old male who presents emergency Department after having a few day history of coughing and fevers. Patient's primary medical care doctor yesterday he was told he had pneumonia and was given a shot of antibiotic and given a prescription to fill. Patient had not yet filled the prescription however he went back to the office to get a second shot of Rocephin and at that time he was breathing harder and felt more short of breath and so the physician wanted to be sent to the hospital the admitted.Patient denies any chest pain or palpitations. Patient denies any headache patient denies lightheadedness or dizziness per patient denies any abdominal pain patient denies nausea vomiting diarrhea. Patient denies any leg swelling or calf tenderness. - Related Data Home Medications Medication Instructions Recorded Confirmed Famotidine [Pepcid] 20 mg PO BID 04/26/17 05/12/19 Omeprazole 40 mg PO HS 04/26/17 05/12/19 Aspirin [Adult Low Dose Aspirin EC] 81 mg PO DAILY 10/02/18 05/12/19 Ipratropium 0.02% 1 vial INHALATION RT-QID PRN 10/02/18 05/12/19 cloNIDine HCL [Catapres] 0.1 mg PO BID 10/02/18 05/12/19 Glycopyrrolate/Formoterol Fum 1 puff INHALATION RT-DAILY PRN 03/20/19 05/12/19 [Bevespi Aerosphere Inhaler] Losartan Potassium 100 mg PO DAILY 03/20/19 05/12/19 Omeprazole 20 mg PO BID 03/20/19 05/12/19 Vortioxetine Hydrobromide 5 mg PO DAILY 03/20/19 05/12/19 [Trintellix] Primidone [Mysoline] 50 mg PO HS 05/12/19 05/12/19 Allergies Allergy/AdvReac Type Severity Reaction Status Date / Time No Known Allergies Allergy Verified 05/12/19 12:41 Review of Systems ROS Statement: Those systems with pertinent positive or pertinent negative responses have been documented in the HPI. ROS Other: All systems not noted in ROS Statement are negative. Past Medical History Past Medical History: Cancer, GERD/Reflux, Hypertension Additional Past Medical History / Comment(s): Neuropathy; esophageal cancer, PAST HX OF SLEEP APNEA, NONE NOW AFTER 150LB WT LOSS, STATES FALLS EASILY, TREMORS History of Any Multi-Drug Resistant Organisms: None Reported Past Surgical History: Appendectomy, Hernia Repair, Joint Replacement, Orthopedic Surgery Additional Past Surgical History / Comment(s): LEFT ROTATOR CUFF.hilary. elbow, hilary wrist carpal tunnel, rt shoulder rotator cuff, rt knee arthroscopy, surgery for esophageal cancer, rt knee replacement, hernia surgery x3 Past Anesthesia/Blood Transfusion Reactions: Previous Problems w/ Anesthesia Additional Past Anesthesia/Blood Transfusion Reaction / Comment(s): can not lay flat- "stomach acid will come out my nose" Past Psychological History: Anxiety, Depression Smoking Status: Former smoker - Past Family History Father Family Medical History: Cancer Additional Family Medical History / Comment(s): COLON Mother Family Medical History: Cancer, Deep Vein Thrombosis (DVT) Additional Family Medical History / Comment(s): brain aneurysm General Exam - General Exam Comments Initial Comments: GENERAL: Patient is well-developed and well-nourished. Patient is nontoxic and well- hydrated and is in mild distress. ENT: Neck is soft and supple. No significant lymphadenopathy is noted. Oropharynx is clear. Moist mucous membranes. Neck has full range of motion without eliciting any pain. EYES: The sclera were anicteric and conjunctiva were pink and moist. Extraocular movements were intact and pupils were equal round and reactive to light. Eyelids were unremarkable. PULMONARY: Patient has expiratory wheezing diffusely. Patient has crackles in the left base CARDIOVASCULAR: There is a regular rate and rhythm without any murmurs gallops or rubs. ABDOMEN: Soft and nontender with normal bowel sounds. No palpable organomegaly was noted. There is no palpable pulsatile mass. SKIN: Skin is clear with no lesions or rashes and otherwise unremarkable. NEUROLOGIC: Patient is alert and oriented x3. Cranial nerves II through XII are grossly intact. Motor and sensory are also intact. Normal speech, volume and content. Symmetrical smile. MUSCULOSKELETAL: Normal extremities with adequate strength and full range of motion. No lower extremity swelling or edema. No calf tenderness. LYMPHATICS: No significant lymphadenopathy is noted PSYCHIATRIC: Normal psychiatric evaluation. Limitations: no limitations Course Vital Signs 05/12/19 05/12/19 05/12/19 12:04 15:04 15:14 Temperature 97.5 F L Pulse Rate 102 H 84 73 Respiratory 25 H Rate Blood Pressure 138/83 O2 Sat by Pulse 95 Oximetry Medical Decision Making - Medical Decision Making EKG shows normal sinus rhythm at 75 bpm PA interval 252 QRS is 90 QT interval 392 QTC is 437. Patient's EKG shows no ST segment elevation or depression. EKG shows no acute abnormalities. Chest x-ray shows a left lower lobe pneumonia. Patient received a breathing treatment emergency department as well as [facility] I spoke with some physicians agreed to admit the patient admitted the patient I wrote admitting orders continued antibiotics. - Lab Data Result diagrams: 05/12/19 13:15 05/12/19 13:15 Lab Results 05/12/19 05/12/19 05/12/19 Range/Units 13:15 13:15 13:15 WBC 19.9 H (3.8-10.6) k/uL RBC 4.96 (4.30-5.90) m/uL Hgb 14.0 (13.0-17.5) gm/dL Hct 42.9 (39.0-53.0) % MCV 86.5 (80.0-100.0) fL MCH 28.3 (25.0-35.0) pg MCHC 32.7 (31.0-37.0) g/dL RDW 14.7 (11.5-15.5) % Plt Count 269 (150-450) k/uL Neutrophils % 87 % Lymphocytes % 7 % Monocytes % 5 % Eosinophils % 0 % Basophils % 0 % Neutrophils # 17.4 H (1.3-7.7) k/uL Lymphocytes # 1.3 (1.0-4.8) k/uL Monocytes # 1.0 (0-1.0) k/uL Eosinophils # 0.1 (0-0.7) k/uL Basophils # 0.0 (0-0.2) k/uL PT (9.0-12.0) sec INR (<1.2) APTT (22.0-30.0) sec Sodium 136 L (137-145) mmol/L Potassium 4.2 (3.5-5.1) mmol/L Chloride 102 (98-107) mmol/L Carbon Dioxide 23 (22-30) mmol/L Anion Gap 11 mmol/L BUN 18 (9-20) mg/dL Creatinine 0.75 (0.66-1.25) mg/dL Est GFR (CKD-EPI)AfAm >90 (>60 ml/min/1.73 sqM) Est GFR (CKD-EPI)NonAf >90 (>60 ml/min/1.73 sqM) Glucose 101 H (74-99) mg/dL Plasma Lactic Acid Son 1.5 (0.7-2.0) mmol/L Calcium 8.8 (8.4-10.2) mg/dL Total Bilirubin 1.0 (0.2-1.3) mg/dL AST 19 (17-59) U/L ALT 19 L (21-72) U/L Alkaline Phosphatase 75 (38-126) U/L Troponin I (0.000-0.034) ng/mL Total Protein 6.6 (6.3-8.2) g/dL Albumin 3.7 (3.5-5.0) g/dL Influenza Type A RNA (Not Detectd) Influenza Type B (PCR) (Not Detectd) 05/12/19 05/12/19 05/12/19 Range/Units 13:15 13:15 15:00 WBC (3.8-10.6) k/uL RBC (4.30-5.90) m/uL Hgb (13.0-17.5) gm/dL Hct (39.0-53.0) % MCV (80.0-100.0) fL MCH (25.0-35.0) pg MCHC (31.0-37.0) g/dL RDW (11.5-15.5) % Plt Count (150-450) k/uL Neutrophils % % Lymphocytes % % Monocytes % % Eosinophils % % Basophils % % Neutrophils # (1.3-7.7) k/uL Lymphocytes # (1.0-4.8) k/uL Monocytes # (0-1.0) k/uL Eosinophils # (0-0.7) k/uL Basophils # (0-0.2) k/uL PT 10.9 (9.0-12.0) sec INR 1.0 (<1.2) APTT 26.8 (22.0-30.0) sec Sodium (137-145) mmol/L Potassium (3.5-5.1) mmol/L Chloride (98-107) mmol/L Carbon Dioxide (22-30) mmol/L Anion Gap mmol/L BUN (9-20) mg/dL Creatinine (0.66-1.25) mg/dL Est GFR (CKD-EPI)AfAm (>60 ml/min/1.73 sqM) Est GFR (CKD-EPI)NonAf (>60 ml/min/1.73 sqM) Glucose (74-99) mg/dL Plasma Lactic Acid Son (0.7-2.0) mmol/L Calcium (8.4-10.2) mg/dL Total Bilirubin (0.2-1.3) mg/dL AST (17-59) U/L ALT (21-72) U/L Alkaline Phosphatase (38-126) U/L Troponin I <0.012 (0.000-0.034) ng/mL Total Protein (6.3-8.2) g/dL Albumin (3.5-5.0) g/dL Influenza Type A RNA Not Detected (Not Detectd) Influenza Type B (PCR) Not Detected (Not Detectd) Disposition Clinical Impression: Pneumonia Disposition: ADMITTED IP TO THIS HOSP Referrals: Ronal Rivas MD [Primary Care Provider] - 1-2 days Time of Disposition: 15:02
[2019-05-12] MEDS ORDERED: NALOXONE 0.4 MG/ML 1 ML VIAL IV PRN (15:31)
[2019-05-12] MEDS ORDERED: ONDANSETRON 4 MG/2 ML VIAL IVP PRN (15:31)
[2019-05-12] MEDS ORDERED: ACETAMINOPHEN TAB 325 MG TAB PO PRN (15:31)
[2019-05-12] MEDS ORDERED: traMADol 50 MG TAB PO PRN (15:31)
[2019-05-12] MEDS ORDERED: AZITHROMYCIN 500 MG in SODIUM CHLORIDE 0.9% 250 ML IVPB STA (15:33)
[2019-05-12] MEDS ORDERED: PNEUMONIA PROTOCOL UTILIZED 1 EACH MISC PO PRN (15:33)
[2019-05-12] MEDS ORDERED: methylPREDNISolone SOD SUCCI 125 MG/2 ML VIAL IV STA (15:35)
--- NOTE | 2019-05-12 16:04 | P.HPIM ---
History of Present Illness H&P Date: 05/12/19 Chief Complaint: Shortness of breath This is 63-year-old male admitted to the hospital for shortness of breath that has been going for the last week that has been getting worse the patient went to see his primary care physician who referred him to the hospital patient has been treated with by mouth antibiotics outside the hospital without any significant improvement, patient states also that he has been having pleuritic chest pain that increases with cough Review of systems and systems has been reviewed all negative and positive findings as per history of present illness Past Medical History Past Medical History: Cancer, GERD/Reflux, Hypertension Additional Past Medical History / Comment(s): Neuropathy; esophageal cancer, PAST HX OF SLEEP APNEA, NONE NOW AFTER 150LB WT LOSS, STATES FALLS EASILY, TREMORS History of Any Multi-Drug Resistant Organisms: None Reported Past Surgical History: Appendectomy, Hernia Repair, Joint Replacement, O rthopedic Surgery Additional Past Surgical History / Comment(s): LEFT ROTATOR CUFF.hilary. elbow, hilary wrist carpal tunnel, rt shoulder rotator cuff, rt knee arthroscopy, surgery for esophageal cancer, rt knee replacement, hernia surgery x3 Past Anesthesia/Blood Transfusion Reactions: Previous Problems w/ Anesthesia Additional Past Anesthesia/Blood Transfusion Reaction / Comment(s): can not lay flat- "stomach acid will come out my nose" Past Psychological History: Anxiety, Depression Smoking Status: Former smoker - Past Family History Father Family Medical History: Cancer Additional Family Medical History / Comment(s): COLON Mother Family Medical History: Cancer, Deep Vein Thrombosis (DVT) Additional Family Medical History / Comment(s): brain aneurysm Constitutional: No acute distress, conversant, pleasant Eyes: Anicteric sclerae, moist conjunctiva, no lid-lag PERRLA ENMT: NC/AT Oropharynx clear, no erythema, exudates Neck: Supple, FROM, no masses, or JVD No carotid bruits No thyromegaly Lungs: Crackly and wheezy bilaterally Cardiovascular: Heart regular in rate and rhythm, No murmurs, gallops, or rubs No peripheral edema Abdominal: Soft Nontender, no guarding, rebound or rigidity Abdomen moving with respiration Normoactive bowel sounds No hepatomegaly, No splenomegaly No palpable mass No abdominal wall hernia noted Skin: Normal temperature, tone, texture, turgor No induration No subcutaneous nodules No rash, lesions No ulcers Extremities: No digital cyanosis No clubbing Pedal pulses intact and symmetrical Radial pulses intact and symmetrical Normal gait and station No calf tenderness Psychiatric:Alert and oriented to person, place and time Appropriate affect Intact judgement Neuro: No obvious focal weakness Assessment and plan pneumonia the patient on Rocephin and Zithromax COPD exacerbation continue patient on IV Solu Medrol Pleuritic chest pain we'll put the patient on telemetry we will check computed tomography scan of the lungs to rule out PE Admit the patient regular medical floor Hypertension DVT and GI prophylaxis Past Medical History Past Medical History: Cancer, GERD/Reflux, Hypertension Additional Past Medical History / Comment(s): Neuropathy; esophageal cancer, PAST HX OF SLEEP APNEA, NONE NOW AFTER 150LB WT LOSS, STATES FALLS EASILY, TREMORS History of Any Multi-Drug Resistant Organisms: None Reported Past Surgical History: Appendectomy, Hernia Repair, Joint Replacement, Orthopedic Surgery Additional Past Surgical History / Comment(s): LEFT ROTATOR CUFF.hilary. elbow, hilary wrist carpal tunnel, rt shoulder rotator cuff, rt knee arthroscopy, surgery for esophageal cancer, rt knee replacement, hernia surgery x3 Past Anesthesia/Blood Transfusion Reactions: Previous Problems w/ Anesthesia Additional Past Anesthesia/Blood Transfusion Reaction / Comment(s): can not lay flat- "stomach acid will come out my nose" Past Psychological History: Anxiety, Depression Smoking Status: Former smoker - Past Family History Father Family Medical History: Cancer Additional Family Medical History / Comment(s): COLON Mother Family Medical History: Cancer, Deep Vein Thrombosis (DVT) Additional Family Medical History / Comment(s): brain aneurysm Medications and Allergies Home Medications Medication Instructions Recorded Confirmed Type Famotidine [Pepcid] 20 mg PO BID 04/26/17 05/12/19 History Omeprazole 40 mg PO HS 04/26/17 05/12/19 History Aspirin [Adult Low Dose Aspirin EC] 81 mg PO DAILY 10/02/18 05/12/19 History Ipratropium 0.02% 1 vial INHALATION RT-QID PRN 10/02/18 05/12/19 History cloNIDine HCL [Catapres] 0.1 mg PO BID 10/02/18 05/12/19 History Glycopyrrolate/Formoterol Fum 1 puff INHALATION RT-DAILY PRN 03/20/19 05/12/19 History [Bevespi Aerosphere Inhaler] Losartan Potassium 100 mg PO DAILY 03/20/19 05/12/19 History Omeprazole 20 mg PO BID 03/20/19 05/12/19 History Vortioxetine Hydrobromide 5 mg PO DAILY 03/20/19 05/12/19 History [Trintellix] Primidone [Mysoline] 50 mg PO HS 05/12/19 05/12/19 History Allergies Allergy/AdvReac Type Severity Reaction Status Date / Time No Known Allergies Allergy Verified 05/12/19 12:41 Physical Exam Vitals: Vital Signs Temp Pulse Resp BP Pulse Ox 05/12/19 15:30 73 21 133/103 95 05/12/19 15:14 73 05/12/19 15:04 84 05/12/19 15:00 77 24 132/90 95 05/12/19 14:30 71 21 136/96 95 05/12/19 14:00 71 22 128/88 96 05/12/19 13:30 72 23 127/83 97 05/12/19 13:00 72 22 127/83 96 05/12/19 12:04 97.5 F L 102 H 25 H 138/83 95 Intake and Output 05/12/19 05/12/19 05/12/19 06:59 14:59 22:59 Other: Weight 103.419 kg Results CBC & Chem 7: 05/12/19 13:15 05/12/19 13:15 Labs: Abnormal Lab Results - Last 24 Hours (Table) 05/12/19 05/12/19 Range/Units 13:15 13:15 WBC 19.9 H (3.8-10.6) k/uL Neutrophils # 17.4 H (1.3-7.7) k/uL Sodium 136 L (137-145) mmol/L Glucose 101 H (74-99) mg/dL ALT 19 L (21-72) U/L
--- NOTE | 2019-05-12 16:43 | CT ---
EXAMINATION TYPE: CT chest angio for PE DATE OF EXAM: 05/12/2019 COMPARISON: 07/30/2018 HISTORY: Difficulty breathing. History of esophageal cancer. CT DLP: 475.1 mGycm. Automated Exposure Control for Dose Reduction was Utilized. CONTRAST: CTA scan of the thorax is performed with IV Contrast, patient injected with 100ml mL of Isovue 370, p ulmonary embolism protocol. MIP Images are created on CT scanner and reviewed. FINDINGS: LUNGS: Groundglass density and consolidation with air bronchograms is seen within the left upper lobe and lingula as well as multifocally within the lower lobes appearing most consistent with multifocal pneumonia. Tree-in-bud opacity is also seen of the posterior right upper lobe. MEDIASTINUM: There is suboptimal enhancement of the pulmonary artery and its branches, there is no CT evidence for central pulmonary embolism. Evaluation of the subsegmental pulmonary arteries is nondia gnostic. There are new prominent mediastinal lymph nodes with some slightly enlarged particularly wit hin the right hilum measuring 1.3 cm in short axis and left hilum and 1.2 cm in short axis. Aorticopu lmonary window lymph nodes are also enlarged measuring up to 1.3 cm in short axis. Gastric pull-thr ough is noted with fluid throughout the gastric pull-through. Aspiration precautions are recommended. The heart is enlarged without pericardial effusion. Moderate to severe coronary artery calcification s are seen, a marker of coronary artery disease. OTHER: There is evidence of hepatic steatosis, limiting evaluation for hepatic mass. Angiographic pha se of contrast also limits of resolution for hepatic mass. Low-density adrenal gland nodule likely re presents adrenal adenoma measuring average Hounsfield unit of 14 and 1.7 cm in length. Nodular low de nsity of the left adrenal gland is similar also likely representing a 0.2 cm lipid rich adrenal gland adenoma. Nodules are stable from the prior of 07/30/2018. IMPRESSION: 1. No evidence of central pulmonary embolism. Evaluation of the subsegmental pulmonary arteries is no ndiagnostic given suboptimal bolus timing. 2. New bibasilar opacities, left upper lobe opacity and lingular opacity abutting the mediastinum. Mu ltifocal pneumonia is a primary diagnostic consideration. Given the slight nodular contour of the lef t lower lobe opacity follow-up after treatment is recommended to ensure no pulmonary nodule in this p atient with presumed prior esophageal carcinoma. 3. Gastric pull-through contains debris to the level of the aortic arch. Aspiration precautions are r ecommended. 4. Moderate to severe coronary artery calcifications, a marker of coronary artery disease. 5. New mediastinal adenopathy could be reactive however given this patient's presumed history of esop hageal carcinoma PET/CT could be considered.
[2019-05-12] MEDS ORDERED: LEVOFLOXACIN 250MG-D5W PMX 250 MG in DEXTROSE/WATER 1 50ML.BAG IVPB SCH (17:00)
[2019-05-12] MEDS: ALBUTEROL NEBULIZED 2.5 MG/3 ML INHALATION SCH ×2 (17:04→19:37)
[2019-05-12 17:58] LABS: Appearance,Urine Clear (Clear); Bilirubin,Urine Negative (Negative); Blood,Urine Trace (Negative); Color,Urine Yellow; Glucose,Urine (UA) Negative (Negative); Ketones,Urine Trace (Negative); Leukocyte Esterase,Urine Negative (Negative); Mucus,Urine Few /hpf; Nitrite,Urine Negative (Negative); Protein,Urine 1+ (Negative); RBC,Urine 6 /hpf (0-5); WBC,Urine 2 /hpf (0-5)
[2019-05-12 18:10] LABS: Specific Gravity,Urine >1.050 (1.001-1.035)
[2019-05-12 20:31] LABS: Glucose,Whole Blood 144 mg/dL (75-99)
[2019-05-12] MEDS ORDERED: ALPRAZolam 0.5 MG TAB PO PRN (20:56)
[2019-05-12] MEDS ORDERED: FAMOTIDINE 20 MG TAB PO SCH (21:00)
[2019-05-12] MEDS: KETOROLAC 30 MG/ML 1 ML VIAL IVP PRN (21:10)
[2019-05-12] MEDS: PRIMIDONE 50 MG TAB PO SCH (21:10)
[2019-05-12] MEDS: cloNIDine HCL 0.1 MG TAB PO SCH (21:10)
[2019-05-12] MEDS: IPRATROPIUM-ALBUTEROL 3 ML NEB INHALATION PRN (22:13)
[2019-05-12] MEDS: methylPREDNISolone SOD SUCCI 125 MG/2 ML VIAL IV SCH (23:49)
--- NOTE | 2019-05-13 01:05 | P.HPIM ---
History of Present Illness H&P Date: 05/12/19 Chief Complaint: Shortness of breath Patient is 63-year-old male with a known history of hypertension, GERD, history of esophageal cancer status post surgery and previous history of smoking came to ER with the complaints of worsening cough and subjective fevers at home. Nicolasa crouch was seen by his primary care physician yesterday and was given a antibiotic shot and provided with antibiotic prescription. Patient was not able to feel his prescription but his symptoms have been worsening since yesterday. Patient went back to to his PCP and was given another dose of Rocephin. At the time patient was beating harder and having worsening cough and shortness of breath. Patient was eventually sent to the hospital for evaluation. Patient is having pleuritic chest pain with deep breathing and also abdominal pain with cough. Patient was tachycardic and tachypneic on admission. Does have abdominal pain with coughing. No chest pain. No headache or dizziness or lightheadedness. No nausea vomiting or diarrhea. Denied any leg swelling. Chest x-ray showed findings suggestive of left lower lobe pneumonia. Postoperative changes. WBC 19.9, sodium 136 Influenza PCR negative Review of Systems Constitutional: Subjective fevers. No chills.. Generalized weakness and malaise. No weight loss.. Abdomen: Patient denied nausea vomiting and diarrhea and abdominal pain. Cardiovascular: Patient denies any chest pain or short of breath no palpitations. Respiratory: Cough with whitish to green colored sputum production and shortness of breath. Neurologic: Patient denied any numbness or tingling headache. Musculoskeletal: Patient denies any complaints of joint swelling or deformity. Skin: Negative Psychiatric: Negative Endocrine: No heat or cold intolerance. No recent weight gain. Genitourinary: No dysuria or hematuria. All other 14 point ROS negative except the above Past Medical History Past Medical History: Cancer, GERD/Reflux, Hypertension Additional Past Medical History / Comment(s): Neuropathy; esophageal cancer, PAST HX OF SLEEP APNEA, NONE NOW AFTER 150LB WT LOSS, STATES FALLS EASILY, TREMORS History of Any Multi-Drug Resistant Organisms: None Reported Past Surgical History: Appendectomy, Hernia Repair, Joint Replacement, Orthopedic Surgery Additional Past Surgical History / Comment(s): LEFT ROTATOR CUFF.hilary. elbow, hilary wrist carpal tunnel, rt shoulder rotator cuff, rt knee arthroscopy, surgery for esophageal cancer, rt knee replacement, hernia surgery x3 Past Anesthesia/Blood Transfusion Reactions: Previous Problems w/ Anesthesia Additional Past Anesthesia/Blood Transfusion Reaction / Comment(s): can not lay flat- "stomach acid will come out my nose" Past Psychological History: Anxiety, Depression Additional Psychological History / Comment(s): Pt lives at home with his . Pt is normally independent. Smoking Status: Former smoker Past Alcohol Use History: None Reported Additional Past Alcohol Use History / Comment(s): QUIT SMOKING APPROX 1986, SMOKED 1 PACK OVER 3 DAYS, STARTED AGE 13 Past Drug Use History: None Reported - Past Family History Father Family Medical History: Cancer Additional Family Medical History / Comment(s): COLON Mother Family Medical History: Cancer, Deep Vein Thrombosis (DVT) Additional Family Medical History / Comment(s): brain aneurysm Medications and Allergies Home Medications Medication Instructions Recorded Confirmed Type Famotidine [Pepcid] 20 mg PO BID 04/26/17 05/12/19 History Omeprazole 40 mg PO HS 04/26/17 05/12/19 History Aspirin [Adult Low Dose Aspirin EC] 81 mg PO DAILY 10/02/18 05/12/19 History Ipratropium 0.02% 1 vial INHALATION RT-QID PRN 10/02/18 05/12/19 History cloNIDine HCL [Catapres] 0.1 mg PO BID 10/02/18 05/12/19 History Glycopyrrolate/Formoterol Fum 1 puff INHALATION RT-DAILY PRN 03/20/19 05/12/19 History [Bevespi Aerosphere Inhaler] Losartan Potassium 100 mg PO DAILY 03/20/19 05/12/19 History Omeprazole 20 mg PO BID 03/20/19 05/12/19 History Vortioxetine Hydrobromide 5 mg PO DAILY 03/20/19 05/12/19 History [Trintellix] Primidone [Mysoline] 50 mg PO HS 05/12/19 05/12/19 History Allergies Allergy/AdvReac Type Severity Reaction Status Date / Time No Known Allergies Allergy Verified 05/12/19 12:41 Physical Exam Vitals: Vital Signs Temp Pulse Pulse Resp BP BP Pulse Ox 05/12/19 22:25 77 20 05/12/19 22:13 73 20 05/12/19 22:04 76 28 H 131/69 96 05/12/19 21:22 97.5 F L 82 24 132/70 95 05/12/19 19:49 75 05/12/19 19:45 112/76 05/12/19 19:40 70 05/12/19 17:00 95 05/12/19 15:30 73 21 133/103 95 05/12/19 15:14 73 05/12/19 15:04 84 05/12/19 15:00 77 24 132/90 95 05/12/19 14:30 71 21 136/96 95 05/12/19 14:00 71 22 128/88 96 05/12/19 13:30 72 23 127/83 97 05/12/19 13:00 72 22 127/83 96 05/12/19 12:04 97.5 F L 102 H 25 H 138/83 95 Intake and Output 05/12/19 05/12/19 05/13/19 14:59 22:59 06:59 Other: # Voids 0 Weight 103.419 kg PHYSICAL EXAMINATION: Patient is lying in the bed comfortably, mild distress, awake alert and oriented.. HEENT: Normocephalic. Neck is supple. Pupils reactive. Nostrils clear. Oral cavity is moist. Ears reveal no drainage. Neck reveals no JVD, carotid bruits, or thyromegaly. CHEST EXAMINATION: Trachea is central. Symmetrical expansion. Bibasilar diminished air entry. Diffuse rhonchi and expiratory wheezing.. CARDIAC: Normal S1, S2 with no gallops. No murmurs ABDOMEN: Soft. Bowel sounds normal. No organomegaly. No abdominal bruits. Extremities: reveal no edema. No clubbing or cyanosis Neurologically awake, alert, oriented x3 with well-coordinated movements. No focal deficits noted Skin: No rash or skin lesions. Psychiatric: Coperative. Nonsuicidal Musculoskeletal: No joint swelling or deformity. Normal range of motion. Results CBC & Chem 7: 05/12/19 13:15 05/12/19 13:15 Labs: Abnormal Lab Results - Last 24 Hours (Table) 05/12/19 05/12/19 05/12/19 Range/Units 13:15 13:15 17:40 WBC 19.9 H (3.8-10.6) k/uL Neutrophils # 17.4 H (1.3-7.7) k/uL Sodium 136 L (137-145) mmol/L Glucose 101 H (74-99) mg/dL POC Glucose (mg/dL) (75-99) mg/dL ALT 19 L (21-72) U/L Ur Specific [place] >1.050 H (1.001-1.035) Urine Protein 1+ H (Negative) Urine Ketones Trace H (Negative) Urine Blood Trace H (Negative) Urine RBC 6 H (0-5) /hpf Urine Mucus Few H (None) /hpf 05/12/19 Range/Units 20:29 WBC (3.8-10.6) k/uL Neutrophils # (1.3-7.7) k/uL Sodium (137-145) mmol/L Glucose (74-99) mg/dL POC Glucose (mg/dL) 144 H (75-99) mg/dL ALT (21-72) U/L Ur Specific [place] (1.001-1.035) Urine Protein (Negative) Urine Ketones (Negative) Urine Blood (Negative) Urine RBC (0-5) /hpf Urine Mucus (None) /hpf Microbiology - Last 24 Hours (Table) 05/12/19 17:40 Urine Culture - Preliminary Urine,Voided Thrombosis Risk Factor Assmnt - DVT/VTE Prophylaxis DVT/VTE Prophylaxis: Pharmacologic Prophylaxis ordered - Choose All That Apply Any of the Below Risk Factors Present?: Yes Each Factor Represents 1 point: Serious lung disease incl. pneumonia (< 1month) Other Risk Factors: Yes Each Risk Factor Represents 2 Points: Age 61-74 years Other congenital or acquired thrombophilia - If yes, enter type in comment: No Thrombosis Risk Factor Assessment Total Risk Factor Score: 3 Thrombosis Risk Factor Assessment Level: Moderate Risk Assessment and Plan Assessment: Worsening cough and shortness of breath Left lower lobe pneumonia with sepsis. Patient is tachycardic and tachypneic on admission with leukocytosis. Acute COPD exacerbation. History of esophageal cancer status post surgery Hypertension GERD Neuropathy nondiabetic Anxiety and depression Previous history of smoking GI and DVT prophylaxis. On PPI and heparin subcu. Plan: Patient will be continued on antibiotics in the form of ceftriaxone and azithromycin. Continue with IV steroids, DuoNeb's and oxygen therapy. Pain management. Continue with home blood pressure medications and follow up closely. Further recommendations based on the clinical course. Time with Patient: Greater than 30
[2019-05-13] MEDS: methylPREDNISolone SOD SUCCI 125 MG/2 ML VIAL IV SCH ×4 (05:39→23:50)
--- NOTE | 2019-05-13 08:14 | XR ---
EXAMINATION TYPE: XR chest 2V DATE OF EXAM: 05/13/2019 COMPARISON: Prior chest x-ray 05/12/2019 HISTORY: Pneumonia TECHNIQUE: Frontal and lateral views of the chest are obtained. FINDINGS: Patchy bibasilar increased density persists. No pneumothorax. Heart is enlarged. Pulmonary artery appears prominently, correlate for possible pulmonary artery hypertension. IMPRESSION: Gastric pull-through changes. Correlate for associated basilar pneumonia bilaterally.
[2019-05-13] MEDS: ASPIRIN 81 MG PO SCH (08:41)
[2019-05-13] MEDS: cloNIDine HCL 0.1 MG TAB PO SCH ×2 (08:42→21:25)
[2019-05-13] MEDS: LOSARTAN 50 MG TAB PO SCH (08:42)
[2019-05-13] MEDS: VORTIOXETINE HYDROBROMIDE 10 MG TABLET PO SCH (08:42)
[2019-05-13] MEDS: PANTOPRAZOLE 40 MG TABLET PO SCH (08:42)
[2019-05-13] MEDS: HEPARIN SODIUM,PORCINE 5,000 UNIT/ML 1 ML VIAL SQ SCH ×3 (08:43→23:51)
[2019-05-13] MEDS: ALBUTEROL NEBULIZED 2.5 MG/3 ML INHALATION SCH ×4 (08:47→20:18)
[2019-05-13] MEDS ORDERED: AZITHROMYCIN 500 MG TAB PO SCH ×2 (09:00→16:00)
[2019-05-13 09:57] LABS: Basophils % (A) 0 %; Eosinophils % (A) 0 %; HCT 41.9 % (39.0-53.0); HGB 13.1 gm/dL (13.0-17.5); Lymphocytes # (A) 0.8 k/uL (1.0-4.8); Lymphocytes % (A) 5 %; MCH 27.6 pg (25.0-35.0); MCHC 31.2 g/dL (31.0-37.0); MCV 88.6 fL (80.0-100.0); Mean Platelet Volume 6.5; Monocytes # (A) 0.1 k/uL (0-1.0); Monocytes % (A) 1 %; Neutrophils # (A) 14.5 k/uL (1.3-7.7); Neutrophils % (A) 94 %; Platelet Count 279 k/uL (150-450); RBC 4.73 m/uL (4.30-5.90); RDW 14.8 % (11.5-15.5); WBC 15.4 k/uL (3.8-10.6)
[2019-05-13 10:23] LABS: ALT 13 U/L (21-72); AST 14 U/L (17-59); African American GFR (CKD) >90 (>60 ml/min/1.73 sqM); Albumin 3.7 g/dL (3.5-5.0); Alkaline Phosphatase 74 U/L (38-126); Anion Gap 12 mmol/L; Blood Urea Nitrogen 19 mg/dL (9-20); Calcium 8.5 mg/dL (8.4-10.2); Carbon Dioxide 22 mmol/L (22-30); Chloride 103 mmol/L (98-107); Glucose 217 mg/dL (74-99); Sodium 137 mmol/L (137-145); Total Bilirubin 0.3 mg/dL (0.2-1.3); Total Protein 6.4 g/dL (6.3-8.2)
[2019-05-13] MEDS ORDERED: CEFDINIR 300 MG CAP PO SCH (11:00)
[2019-05-13] MEDS ORDERED: LEVOFLOXACIN 250MG-D5W PMX 750 MG in DEXTROSE/WATER 1 50ML.BAG IVPB SCH (13:00)
[2019-05-13] MEDS: IPRATROPIUM-ALBUTEROL 3 ML NEB INHALATION PRN ×2 (14:03→20:18)
--- NOTE | 2019-05-13 14:23 | P.CNPUL ---
History of Present Illness Consult date: 05/13/19 Requesting physician: Vasile Burrows Reason for consult: dyspnea Chief complaint: Dyspnea, fatigue, cough, phlegm production, fever History of present illness: This is a 63-year-old white male patient with past medical history positive for stage II COPD, with a baseline FEV1 of 2.14 L or 62% of predicted, past history of nicotine dependence, currently in remission, hypertension, history of e sophageal cancer test post-esophagectomy, history of obstructive sleep apnea which has resolved after 150 pound weight loss, anxiety, depression, who presented to the emergency department yesterday on 05/12/2019 with 2 to half week history of worsening shortness of breath, cough, congestion, fevers. Patient went to see his PCP Dr. Rivas 2 days ago, he was given intramuscular antibiotic, presumably Rocephin, and another injection presumably steroid, and was sent home, however on yesterday's follow-up visit patient was feeling worse, and patient was directed to come to the emergency room for evaluation. Chest x- ray was completed showing increased bibasilar density, however the density at the right lung base likely related to the gastric pull-through, and findings suggesting left lower lobe pneumonia. Lab work showed leukocytosis, with a white blood cell count of 19.9, hemoglobin of 14.0, INR of 1.0, electrolytes were unremarkable, renal profile was within normal limits, asthma lactic acid of 1.5, troponins were negative 3, urinalysis showed trace blood and ketones, but no evidence of infection, influenza screen was negative. Patient was started on the Zithromax and Rocephin which was switched to IV Levaquin [address] angios chest showed no evidence of central pulmonary embolism, it did show a new bibasilar opacities, left upper lobe opacity in the lingular opacity abutting the mediastinum, multifocal pneumonia in the consideration, there was a slight nodular contour of the left lower lobe opacity. Gastric pull-through containing debris to the level of the aortic arch was noted. Moderate to severe coronary artery calcification. He was also new mediastinal adenopathy that could be reactive. Were consulted for evaluation of patient's shortness of br eath and multifocal pneumonia involving the left lung. Review of Systems All systems: negative Constitutional: Denies chills, Denies fever Eyes: denies blurred vision, denies pain Ears, nose, mouth and throat: Denies headache, Denies sore throat Cardiovascular: Denies chest pain, Denies shortness of breath Respiratory: Reports dyspnea, Reports respiratory infections, Denies cough Gastrointestinal: Denies abdominal pain, Denies diarrhea, Denies nausea, Denies vomiting Musculoskeletal: Denies myalgias Integumentary: Denies pruritus, Denies rash Neurological: Denies numbness, Denies weakness Psychiatric: Denies anxiety, Denies depression Endocrine: Denies fatigue, Denies weight change Past Medical History Past Medical History: Cancer, GERD/Reflux, Hypertension Additional Past Medical History / Comment(s): Neuropathy; esophageal cancer txed with surgery, past hx of sleep apnea and diabetes but none now after 150 pound weight loss, STATES falls easily, tremor, seizures last one was apprximately 3 days ago, History of Any Multi-Drug Resistant Organisms: None Reported Past Surgical History: Appendectomy, Hernia Repair, Joint Replacement, Orthopedic Surgery Additional Past Surgical History / Comment(s): LEFT ROTATOR CUFF.hilary. elbow, hilary wrist carpal tunnel, rt shoulder rotator cuff, rt knee arthroscopy, surgery for esophageal cancer (removed part of esophagus and removed part of stomach making it into carrot shaper per patient), rt knee replacement, hernia surgery x3 Past Anesthesia/Blood Transfusion Reactions: Previous Problems w/ Anesthesia Additional Past Anesthesia/Blood Transfusion Reaction / Comment(s): can not lay flat- "stomach acid will come out my nose" Past Psychological History: Anxiety, Depression Additional Psychological History / Comment(s): Pt lives at home with his . Pt is normally independent. Smoking Status: Former smoker Past Alcohol Use History: None Reported Additional Past Alcohol Use History / Comment(s): QUIT SMOKING APPROX 1986, SMOKED 1 PACK OVER 3 DAYS, STARTED AGE 13 Past Drug Use History: None Reported - Past Family History Father Family Medical History: Cancer Additional Family Medical History / Comment(s): COLON Mother Family Medical History: Cancer, Deep Vein Thrombosis (DVT) Additional Family Medical History / Comment(s): brain aneurysm Medications and Allergies Home Medications Medication Instructions Recorded Confirmed Type Famotidine [Pepcid] 20 mg PO BID 04/26/17 05/12/19 History Omeprazole 40 mg PO HS 04/26/17 05/12/19 History Aspirin [Adult Low Dose Aspirin EC] 81 mg PO DAILY 10/02/18 05/12/19 History Ipratropium 0.02% 1 vial INHALATION RT-QID PRN 10/02/18 05/12/19 History cloNIDine HCL [Catapres] 0.1 mg PO BID 10/02/18 05/12/19 History Glycopyrrolate/Formoterol Fum 1 puff INHALATION RT-DAILY PRN 03/20/19 05/12/19 History [Bevespi Aerosphere Inhaler] Losartan Potassium 100 mg PO DAILY 03/20/19 05/12/19 History Omeprazole 20 mg PO BID 03/20/19 05/12/19 History Vortioxetine Hydrobromide 5 mg PO DAILY 03/20/19 05/12/19 History [Trintellix] Primidone [Mysoline] 50 mg PO HS 05/12/19 05/12/19 History Allergies Allergy/AdvReac Type Severity Reaction Status Date / Time No Known Allergies Allergy Verified 05/12/19 12:41 Physical Exam Vitals: Vital Signs Temp Pulse Pulse Pulse Resp BP BP 05/13/19 14:03 85 05/13/19 12:04 78 05/13/19 11:50 78 05/13/19 11:45 97.1 F L 84 17 130/85 05/13/19 08:57 75 05/13/19 08:47 75 05/13/19 04:35 97.5 F L 63 22 130/80 05/12/19 22:25 77 20 05/12/19 22:13 73 20 05/12/19 22:04 76 28 H 131/69 05/12/19 21:22 97.5 F L 82 24 132/70 05/12/19 19:49 75 05/12/19 19:45 112/76 05/12/19 19:40 70 05/12/19 17:00 05/12/19 15:30 73 21 133/103 05/12/19 15:14 73 05/12/19 15:04 84 05/12/19 15:00 77 24 132/90 05/12/19 14:30 71 21 136/96 Pulse Ox 05/13/19 14:03 95 05/13/19 12:04 05/13/19 11:50 05/13/19 11:45 96 05/13/19 08:57 07/24/19 08:47 95 05/13/19 04:35 95 05/12/19 22:25 05/12/19 22:13 05/12/19 22:04 96 05/12/19 21:22 95 05/12/19 19:49 05/12/19 19:45 05/12/19 19:40 05/12/19 17:00 95 05/12/19 15:30 95 05/12/19 15:14 05/12/19 15:04 05/12/19 15:00 95 05/12/19 14:30 95 Intake and Output 05/12/19 05/13/19 05/13/19 22:59 06:59 14:59 Intake Total 540 240 Balance 540 240 Intake: Intake, IV Titration 300 Amount Azithromycin 500 mg In 250 Sodium Chloride 0.9% 250 ml @ 250 mls/hr IVPB ONCE [facility] Rx#:[id number] Levofloxacin 250Mg-D5w 50 Pmx 250 mg In Dextrose/ Water 1 50ml.bag @ 50 mls /hr IVPB Q24H [facility] Rx#: [id number] Oral 240 240 Other: Voiding Method Urinal Urinal # Voids 1 GENERAL EXAM: Alert, pleasant, 63-year-old white male comfortable in no apparent distress. HEAD: Normocephalic/atraumatic. EYES: Normal reaction of pupils, equal size. Conjunctiva pink, sclera white. NOSE: Clear with pink turbinates. THROAT: No erythema or exudates. NECK: No masses, no JVD, no thyroid enlargement, no adenopathy. CHEST: No chest wall deformity. Symmetrical expansion. LUNGS: Equal air entry with with basilar crackles bilaterally, left greater than the right, and has congested cough CVS: Regular rate and rhythm, normal S1 and S2, no gallops, no murmurs, no rubs ABDOMEN: Soft, nontender. No hepatosplenomegaly, normal bowel sounds, no guarding or rigidity. EXTREMITIES: No clubbing, no edema, no cyanosis, 2+ pulses and upper and lower extremities. MUSCULOSKELETAL: Muscle strength and tone normal. SPINE: No scoliosis or deformity SKIN: No rashes CENTRAL NERVOUS SYSTEM: Alert and oriented -3. No focal deficits, tone is normal in all 4 extremities. PSYCHIATRIC: Alert and oriented -3. Appropriate affect. Intact judgment and insight. Results - Laboratory Findings CBC and BMP: 05/13/19 09:07 05/13/19 09:07 PT/INR, D-dimer PT 10.9 sec (9.0-12.0) 05/12/19 13:15 INR 1.0 (<1.2) 05/12/19 13:15 Abnormal lab findings: Abnormal Labs 05/12/19 05/12/19 05/12/19 13:15 13:15 17:40 WBC 19.9 H Neutrophils # 17.4 H Lymphocytes # Sodium 136 L Creatinine Glucose 101 H POC Glucose (mg/dL) AST ALT 19 L Ur Specific [place] >1.050 H Urine Protein 1+ H Urine Ketones Trace H Urine Blood Trace H Urine RBC 6 H Urine Mucus Few H 05/12/19 05/13/19 05/13/19 20:29 09:07 09:07 WBC 15.4 H Neutrophils # 14.5 H Lymphocytes # 0.8 L Sodium Creatinine 0.61 L Glucose 217 H POC Glucose (mg/dL) 144 H AST 14 L ALT 13 L Ur Specific [place] Urine Protein Urine Ketones Urine Blood Urine RBC Urine Mucus - Diagnostic Findings Chest x-ray: report reviewed, image reviewed CT scan - chest: report reviewed, image reviewed Additional studies: EKG reviewed Assessment and Plan Plan: Assessment: #1. Dyspnea related to acute coronary acquired pneumonia involving the left lung, CTA chest was negative for PE, but did show groundglass density and consolidation with air bronchograms in the left upper lobe and lingula as well as multifocal within the lower lobes, patient had been given IM Rocephin 2 days prior to presentation with lack of improvement #2. History of esophageal cancer with history of surgical resection #3. GERD/reflux #4. Hypertension #5. Stage II COPD, with a baseline FEV1 of 62% of predicted not on home oxygen #6. Former smoker, quit 35 years ago, did smoke for 25 years half a pack to 1 pack a day #7. Past history of sleep apnea, not currently requiring CPAP related to large weight loss Plan: We will stop the Rocephin and Zithromax, will increase to Levaquin dose to 750 mg daily, continue with nebulized bronchodilators, continue with IV steroids, sputum culture has been sent, will await the results I performed a history & physical examination of the patient and discussed their management with my nurse practitioner, Precious Hughes. I reviewed the nurse practitioner's note and agree with the documented findings and plan of care. Lung sounds are positive for diffuse rales. The findings and the impression was discussed with the patient. I attest to the documentation by the nurse practitioner. Time with Patient: Greater than 30
[2019-05-13] MEDS: LEVOFLOXACIN 750MG-D5W PMX 750 MG in DEXTROSE/WATER 1 150ML.BAG IVPB SCH (14:50)
[2019-05-13] MEDS: PRIMIDONE 50 MG TAB PO SCH (21:25)
[2019-05-13] MEDS: KETOROLAC 30 MG/ML 1 ML VIAL IVP PRN (21:25)
--- NOTE | 2019-05-14 00:06 | P.PN ---
Subjective Progress Note Date: 05/13/19 Principal diagnosis: Pneumonia Patient is 63-year-old male with a known history of hypertension, GERD, history of esophageal cancer status post surgery and previous history of smoking came to ER with the complaints of worsening cough and subjective fevers at home. Patient was seen by his primary care physician yesterday and was given a antibiotic shot and provided with antibiotic prescription. Patient was not able to feel his prescription but his symptoms have been worsening since yesterday. Patient went back to to his PCP and was given another dose of Rocephin. At the time patient was beating harder and having worsening cough and shortness of breath. Patient was eventually sent to the hospital for evaluation. Patient is having pleuritic chest pain with deep breathing and also abdominal pain with cough. Patient was tachycardic and tachypneic on admission. Does have abdominal pain with coughing. No chest pain. No headache or dizziness or lightheadedness. No nausea vomiting or diarrhea. Denied any leg swelling. Chest x-ray showed findings suggestive of left lower lobe pneumonia. Postoperative changes. WBC 19.9, sodium 136 Influenza PCR negative 05/13/2019 Patient is currently sitting in the bed comfortably. Breathing status is improving. ceftriaxone and azithromycin have been discontinued and will be continued on Levaquin. Increase the dose. Pulmonary has seen the patient. Patient has been afebrile. No nausea vomiting or abdominal pain or diarrhea. Current medications reviewed. Objective - Vital Signs Vital signs: Vital Signs Temp 97.1 F L 05/13/19 11:45 Pulse 85 05/13/19 14:15 Resp 17 05/13/19 11:45 BP 130/85 05/13/19 11:45 Pulse Ox 95 05/13/19 14:03 Intake & Output 05/12/19 05/13/19 05/13/19 18:59 06:59 18:59 Intake Total 780 Balance 780 Weight 103.419 kg Intake: Intake, IV Titration 300 Amount Azithromycin 500 mg In 250 Sodium Chloride 0.9% 250 ml @ 250 mls/hr IVPB ONCE STA Rx#:[id number] Levofloxacin 250Mg-D5w 50 Pmx 250 mg In Dextrose/ Water 1 50ml.bag @ 50 mls /hr IVPB Q24H [facility] Rx#: [id number] Oral 480 Other: Voiding Method Urinal Urinal # Voids 0 1 - Exam PHYSICAL EXAMINATION: Patient is lying in the bed comfortably, mild distress, awake alert and oriented.. HEENT: Normocephalic. Neck is supple. Pupils reactive. Nostrils clear. Oral cavity is moist. Ears reveal no drainage. Neck reveals no JVD, carotid bruits, or thyromegaly. CHEST EXAMINATION: Trachea is central. Symmetrical expansion. Bibasilar diminished air entry. Mild expiratory wheezing.. CARDIAC: Normal S1, S2 with no gallops. No murmurs ABDOMEN: Soft. Bowel sounds normal. No organomegaly. No abdominal bruits. Extremities: reveal no edema. No clubbing or cyanosis Neurologically awake, alert, oriented x3 with well-coordinated movements. No focal deficits noted Skin: No rash or skin lesions. Psychiatric: Coperative. Nonsuicidal Musculoskeletal: No joint swelling or deformity. Normal range of motion. - Labs CBC & Chem 7: 05/13/19 09:07 05/13/19 09:07 Labs: Abnormal Lab Results - Last 24 Hours (Table) 05/12/19 05/12/19 05/12/19 Range/Units 13:15 17:40 20:29 WBC 19.9 H (3.8-10.6) k/uL Neutrophils # 17.4 H (1.3-7.7) k/uL Lymphocytes # (1.0-4.8) k/uL Creatinine (0.66-1.25) mg/dL Glucose (74-99) mg/dL POC Glucose (mg/dL) 144 H (75-99) mg/dL AST (17-59) U/L ALT (21-72) U/L Ur Specific [place] >1.050 H (1.001-1.035) Urine Protein 1+ H (Negative) Urine Ketones Trace H (Negative) Urine Blood Trace H (Negative) Urine RBC 6 H (0-5) /hpf Urine Mucus Few H (None) /hpf 05/13/19 05/13/19 Range/Units 09:07 09:07 WBC 15.4 H (3.8-10.6) k/uL Neutrophils # 14.5 H (1.3-7.7) k/uL Lymphocytes # 0.8 L (1.0-4.8) k/uL Creatinine 0.61 L (0.66-1.25) mg/dL Glucose 217 H (74-99) mg/dL POC Glucose (mg/dL) (75-99) mg/dL AST 14 L (17-59) U/L ALT 13 L (21-72) U/L Ur Specific [place] (1.001-1.035) Urine Protein (Negative) Urine Ketones (Negative) Urine Blood (Negative) Urine RBC (0-5) /hpf Urine Mucus (None) /hpf Microbiology - Last 24 Hours (Table) 05/12/19 Unknown Gram Stain - Preliminary Sputum Sputum Culture - Preliminary 05/12/19 17:40 Urine Culture - Preliminary Urine,Voided Assessment and Plan Assessment: Worsening cough and shortness of breath Left lower lobe pneumonia with sepsis. Patient is tachycardic and tachypneic on admission with leukocytosis. Failed outpatient antibiotic therapy. Acute COPD exacerbation. History of esophageal cancer status post surgery Hypertension GERD Neuropathy nondiabetic Anxiety and depression Previous history of smoking GI and DVT prophylaxis. On PPI and heparin subcu. Plan: Patient will be continued on antibiotics in the form of Levaquin. Continue with IV steroids, DuoNeb's and oxygen therapy. Pain management. Continue with home blood pressure medications and follow up closely. Further recommendations based on the clinical course. Time with Patient: Greater than 30
[2019-05-14] MEDS: MAG HYDROX/AL HYDROX/SIMETH 30 ML CUP PO PRN (03:59)
[2019-05-14] MEDS: methylPREDNISolone SOD SUCCI 125 MG/2 ML VIAL IV SCH ×3 (05:43→17:34)
[2019-05-14] MEDS: PANTOPRAZOLE 40 MG TABLET PO SCH (07:48)
[2019-05-14] MEDS: cloNIDine HCL 0.1 MG TAB PO SCH ×2 (07:49→21:29)
[2019-05-14] MEDS: ASPIRIN 81 MG PO SCH (07:49)
[2019-05-14] MEDS: LOSARTAN 50 MG TAB PO SCH (07:49)
[2019-05-14] MEDS: HEPARIN SODIUM,PORCINE 5,000 UNIT/ML 1 ML VIAL SQ SCH ×2 (07:50→17:34)
[2019-05-14] MEDS: VORTIOXETINE HYDROBROMIDE 10 MG TABLET PO SCH (07:50)
[2019-05-14] MEDS: ALBUTEROL NEBULIZED 2.5 MG/3 ML INHALATION SCH ×4 (08:24→20:16)
[2019-05-14] MEDS: LEVOFLOXACIN 750MG-D5W PMX 750 MG in DEXTROSE/WATER 1 150ML.BAG IVPB SCH (12:54)
--- NOTE | 2019-05-14 13:50 | P.PN ---
Subjective Progress Note Date: 05/14/19 Principal diagnosis: Dyspnea, fatigue, cough, phlegm production and fever This is a 63-year-old white male patient with past medical history positive for stage II COPD, with a baseline FEV1 of 2.14 L or 62% of predicted, past history of nicotine dependence, currently in remission, hypertension, history of esophageal cancer test post-esophagectomy, history of obstructive sleep apnea which has resolved after 150 pound weight loss, anxiety, depression, who presented to the emergency department yesterday on 05/12/2019 with 2 to half week history of worsening shortness of breath, cough, congestion, fevers. Patient went to see his PCP Dr. Rivas 2 days ago, he was given intramuscular antibiotic, presumably Rocephin, and another injection presumably steroid, and was sent home, however on yesterday's follow-up visit patient was feeling worse, and patient was directed to come to the emergency room for evaluation. Chest x- ray was completed showing increased bibasilar density, however the density at the right lung base likely related to the gastric pull-through, and findings suggesting left lower lobe pneumonia. Lab work showed leukocytosis, with a white blood cell count of 19.9, hemoglobin of 14.0, INR of 1.0, electrolytes were unremarkable, renal profile was within normal limits, asthma lactic acid of 1.5, troponins were negative 3, urinalysis showed trace blood and ketones, but no evidence of infection, influenza screen was negative. Patient was started on the Zithromax and Rocephin which was switched to IV Levaquin [address] angios chest showed no evidence of central pulmonary embolism, it did show a new bibasilar opacities, left upper lobe opacity in the lingular opacity abutting the mediastinum, multifocal pneumonia in the consideration, there was a slight nodular contour of the left lower lobe opacity. Gastric pull-through containing debris to the level of the aortic arch was noted. Moderate to severe coronary artery calcification. He was also new mediastinal adenopathy that could be reactive. Were consulted for evaluation of patient's shortness of breath and multifocal pneumonia involving the left lung. On 05/14/2019 patient seen in follow-up on medical surgical floor. Feels significantly better on today's exam, currently on 1 L of oxygen with a pulse ox of 96%, hemodynamically stable, no fever or chills, dyspnea has improved, minimal crackles at bilateral bases, no wheezing, no rhonchi, no significant cough or chest congestion. Blood and urine cultures have shown no growth, sputum culture is pending, and 10 years on IV Solu-Medrol, and breathing treatments. No complaints of chest pain, no hemoptysis, patient has been able to ambulate, tolerated activity fairly well. Clinically improving. Objective - Vital Signs Vital signs: Vital Signs Temp 97.4 F L 05/14/19 12:09 Pulse 86 05/14/19 12:09 Resp 17 05/14/19 12:09 BP 136/71 05/14/19 12:09 Pulse Ox 96 05/14/19 12:09 Intake & Output 05/13/19 05/14/19 05/14/19 18:59 06:59 18:59 Intake Total 50 590 Balance 50 590 Intake: Intake, IV Titration 50 Amount cefTRIAXone 1 gm In 50 Sodium Chloride 0.9% 50 ml @ 100 mls/hr IVPB Q24H [facility] Rx#:[id number] Oral 590 Other: Voiding Method Urinal Urinal # Voids 2 2 - Exam GENERAL EXAM: Alert, pleasant, 63-year-old white male comfortable in no apparent distress. HEAD: Normocephalic/atraumatic. EYES: Normal reaction of pupils, equal size. Conjunctiva pink, sclera white. NOSE: Clear with pink turbinates. THROAT: No erythema or exudates. NECK: No masses, no JVD, no thyroid enlargement, no adenopathy. CHEST: No chest wall deformity. Symmetrical expansion. LUNGS: Equal air entry with with basilar crackles bilaterally, left greater than the right, and has congested cough CVS: Regular rate and rhythm, normal S1 and S2, no gallops, no murmurs, no rubs ABDOMEN: Soft, nontender. No hepatosplenomegaly, normal bowel sounds, no guarding or rigidity. EXTREMITIES: No clubbing, no edema, no cyanosis, 2+ pulses and upper and lower extremities. MUSCULOSKELETAL: Muscle strength and tone normal. SPINE: No scoliosis or deformity SKIN: No rashes CENTRAL NERVOUS SYSTEM: Alert and oriented -3. No focal deficits, tone is normal in all 4 extremities. PSYCHIATRIC: Alert and oriented -3. Appropriate affect. Intact judgment and insight. - Labs CBC & Chem 7: 05/13/19 09:07 05/13/19 09:07 Labs: Microbiology - Last 24 Hours (Table) 05/12/19 17:40 Urine Culture - Final Urine,Voided 05/12/19 13:15 Blood Culture - Preliminary Blood No Growth after 24 hours 05/12/19 Unknown Gram Stain - Preliminary Sputum Sputum Culture - Preliminary Assessment and Plan Plan: Assessment: #1. Dyspnea related to acute coronary acquired pneumonia involving the left lung, CTA chest was negative for PE, but did show groundglass density and consolidation with air bronchograms in the left upper lobe and lingula as well as multifocal within the lower lobes, patient had been given IM Rocephin 2 days prior to presentation with lack of improvement #2. History of esophageal cancer with history of surgical resection #3. GERD/reflux #4. Hypertension #5. Stage II COPD, with a baseline FEV1 of 62% of predicted not on home oxygen #6. Former smoker, quit 35 years ago, did smoke for 25 years half a pack to 1 pack a day #7. Past history of sleep apnea, not currently requiring CPAP related to large weight loss Plan: Patient is clinically improving, no fever or chills, vital signs are stable, breathing easier, no significant cough or congestion. No chest pain. Tolerating ambulation, continue weaning FiO2, increase activity. He could be considered for discharge home today or tomorrow. We'll need follow-up in the outpatient basis with Dr. Venegas I performed a history & physical examination of the patient and discussed their management with my nurse practitioner, Precious Hughes. I reviewed the nurse practitioner's note and agree with the documented findings and plan of care. Lung sounds are positive for diffuse rales. The findings and the impression was discussed with the patient. I attest to the documentation by the nurse practitioner. Time with Patient: Less than 30
[2019-05-14] MEDS: PRIMIDONE 50 MG TAB PO SCH (21:29)
[2019-05-14 21:52] VITALS: RESP 16
--- NOTE | 2019-05-14 23:38 | P.PN ---
Subjective Progress Note Date: 05/14/19 Principal diagnosis: Pneumonia Patient is 63-year-old male with a known history of hypertension, GERD, history of esophageal cancer status post surgery and previous history of smoking came to ER with the complaints of worsening cough and subjective fevers at home. Patient was seen by his primary care physician yesterday and was given a antibiotic shot and provided with antibiotic prescription. Patient was not able to feel his prescription but his symptoms have been worsening since yesterday. Patient went back to to his PCP and was given another dose of Rocephin. At the time patient was beating harder and having worsening cough and shortness of breath. Patient was eventually sent to the hospital for evaluation. Patient is having pleuritic chest pain with deep breathing and also abdominal pain with cough. Patient was tachycardic and tachypneic on admission. Does have abdominal pain with coughing. No chest pain. No headache or dizziness or lightheadedness. No nausea vomiting or diarrhea. Denied any leg swelling. Chest x-ray showed findings suggestive of left lower lobe pneumonia. Postoperative changes. WBC 19.9, sodium 136 Influenza PCR negative 05/13/2019 Patient is currently sitting in the bed comfortably. Breathing status is improving. ceftriaxone and azithromycin have been discontinued and will be continued on Levaquin. Increase the dose. Pulmonary has seen the patient. Patient has been afebrile. No nausea vomiting or abdominal pain or diarrhea. 05/14/2019 Patient's breathing status is much improved today. Continued antibiotics in the form of levofloxacin. Bilateral scattered rhonchi present. Wheezing almost resolved. Otherwise patient is still requiring oxygen with another cannula. Gradually titrate down oxygen and anticipate discharged tomorrow.. No fever no chills. No nausea vomiting or abdominal pain. Current medications reviewed. Objective - Vital Signs Vital signs: Vital Signs Temp 97.4 F L 05/14/19 12:09 Pulse 86 05/14/19 12:09 Resp 17 05/14/19 12:09 BP 136/71 05/14/19 12:09 Pulse Ox 96 05/14/19 12:09 Intake & Output 05/13/19 05/14/19 05/14/19 18:59 06:59 18:59 Intake Total 50 590 580 Balance 50 590 580 Intake: Intake, IV Titration 50 Amount cefTRIAXone 1 gm In 50 Sodium Chloride 0.9% 50 ml @ 100 mls/hr IVPB Q24H [facility] Rx#:[id number] Oral 590 580 Other: Voiding Method Urinal Urinal # Voids 2 2 - Exam PHYSICAL EXAMINATION: Patient is lying in the bed comfortably, mild distress, awake alert and orie nted.. HEENT: Normocephalic. Neck is supple. Pupils reactive. Nostrils clear. Oral cavity is moist. Ears reveal no drainage. Neck reveals no JVD, carotid bruits, or thyromegaly. CHEST EXAMINATION: Trachea is central. Symmetrical expansion. Mild expiratory wheeze... CARDIAC: Normal S1, S2 with no gallops. No murmurs ABDOMEN: Soft. Bowel sounds normal. No organomegaly. No abdominal bruits. Extremities: reveal no edema. No clubbing or cyanosis Neurologically awake, alert, oriented x3 with well-coordinated movements. No focal deficits noted Skin: No rash or skin lesions. Psychiatric: Coperative. Nonsuicidal Musculoskeletal: No joint swelling or deformity. Normal range of motion. - Labs CBC & Chem 7: 05/13/19 09:07 05/13/19 09:07 Labs: Microbiology - Last 24 Hours (Table) 05/12/19 13:15 Blood Culture - Preliminary Blood No Growth after 48 hours 05/12/19 17:40 Urine Culture - Final Urine,Voided Assessment and Plan Assessment: Worsening cough and shortness of breath Left lower lobe pneumonia with sepsis. Patient is tachycardic and tachypneic on admission with leukocytosis. Failed outpatient antibiotic therapy. Acute COPD exacerbation. History of esophageal cancer status post surgery Hypertension GERD Neuropathy nondiabetic Anxiety and depression Previous history of smoking GI and DVT prophylaxis. On PPI and heparin subcu. Plan: Patient will be continued on antibiotics in the form of Levaquin. Continue with IV steroids, DuoNeb's and oxygen therapy. Pain management. Continue with home blood pressure medications and follow up closely. Further recommendations based on the clinical course. Time with Patient: Greater than 30
[2019-05-15] MEDS: methylPREDNISolone SOD SUCCI 125 MG/2 ML VIAL IV SCH ×3 (00:04→11:25)
[2019-05-15] MEDS: HEPARIN SODIUM,PORCINE 5,000 UNIT/ML 1 ML VIAL SQ SCH ×2 (00:05→08:44)
[2019-05-15] MEDS: MAG HYDROX/AL HYDROX/SIMETH 30 ML CUP PO PRN (00:06)
[2019-05-15 07:50] LABS: Basophils % (A) 0 %; Eosinophils % (A) 0 %; HCT 39.9 % (39.0-53.0); HGB 12.6 gm/dL (13.0-17.5); Lymphocytes # (A) 0.6 k/uL (1.0-4.8); Lymphocytes % (A) 3 %; MCH 27.8 pg (25.0-35.0); MCHC 31.7 g/dL (31.0-37.0); Mean Platelet Volume 6.6; Monocytes # (A) 0.5 k/uL (0-1.0); Monocytes % (A) 3 %; Neutrophils % (A) 94 %; Platelet Count 308 k/uL (150-450); RBC 4.53 m/uL (4.30-5.90); RDW 14.7 % (11.5-15.5); WBC 18.1 k/uL (3.8-10.6)
[2019-05-15 08:11] LABS: African American GFR (CKD) >90 (>60 ml/min/1.73 sqM); Anion Gap 8 mmol/L; Blood Urea Nitrogen 24 mg/dL (9-20); Calcium 8.6 mg/dL (8.4-10.2); Carbon Dioxide 26 mmol/L (22-30); Chloride 105 mmol/L (98-107); Glucose 135 mg/dL (74-99); Sodium 139 mmol/L (137-145)
[2019-05-15] MEDS: ALBUTEROL NEBULIZED 2.5 MG/3 ML INHALATION SCH ×2 (08:41→12:03)
[2019-05-15] MEDS: PANTOPRAZOLE 40 MG TABLET PO SCH (08:44)
[2019-05-15] MEDS: VORTIOXETINE HYDROBROMIDE 10 MG TABLET PO SCH (08:45)
[2019-05-15] MEDS: LOSARTAN 50 MG TAB PO SCH (08:45)
[2019-05-15] MEDS: cloNIDine HCL 0.1 MG TAB PO SCH (08:45)
[2019-05-15] MEDS: ASPIRIN 81 MG PO SCH (08:45)
[2019-05-15 12:21] VITALS: BP 143/74; TEMP 98
[2019-05-15] MEDS ORDERED: LEVOFLOXACIN 750 MG TAB PO SCH (13:00)
[2019-05-15 13:23] VITALS: PULSE 70
[2019-05-15] MEDS ORDERED: predniSONE 50 MG TAB PO STA (14:23)
--- NOTE | 2019-05-15 14:51 | P.PN ---
Subjective Progress Note Date: 05/15/19 Principal diagnosis: Dyspnea, fatigue, cough, phlegm production and fever This is a 63-year-old white male patient with past medical history positive for stage II COPD, with a baseline FEV1 of 2.14 L or 62% of predicted, past history of nicotine dependence, currently in remission, hypertension, history of esophageal cancer test post-esophagectomy, history of obstructive sleep apnea which has resolved after 150 pound weight loss, anxiety, depression, who presented to the emergency department yesterday on 05/12/2019 with 2 to half week history of worsening shortness of breath, cough, congestion, fevers. Patient went to see his PCP Dr. Rivas 2 days ago, he was given intramuscular antibiotic, presumably Rocephin, and another injection presumably steroid, and was sent home, however on yesterday's follow-up visit patient was feeling worse, and patient was directed to come to the emergency room for evaluation. Chest x- ray was completed showing increased bibasilar density, however the density at the right lung base likely related to the gastric pull-through, and findings suggesting left lower lobe pneumonia. Lab work showed leukocytosis, with a white blood cell count of 19.9, hemoglobin of 14.0, INR of 1.0, electrolytes were unremarkable, renal profile was within normal limits, asthma lactic acid of 1.5, troponins were negative 3, urinalysis showed trace blood and ketones, but no evidence of infection, influenza screen was negative. Patient was started on the Zithromax and Rocephin which was switched to IV Levaquin [address] angios chest showed no evidence of central pulmonary embolism, it did show a new bibasilar opacities, left upper lobe opacity in the lingular opacity abutting the mediastinum, multifocal pneumonia in the consideration, there was a slight nodular contour of the left lower lobe opacity. Gastric pull-through containing debris to the level of the aortic arch was noted. Moderate to severe coronary artery calcification. He was also new mediastinal adenopathy that could be reactive. Were consulted for evaluation of patient's shortness of breath and multifocal pneumonia involving the left lung. On 05/14/2019 patient seen in follow-up on medical surgical floor. Feels significantly better on today's exam, currently on 1 L of oxygen with a pulse ox of 96%, hemodynamically stable, no fever or chills, dyspnea has improved, minimal crackles at bilateral bases, no wheezing, no rhonchi, no significant cough or chest congestion. Blood and urine cultures have shown no growth, sputum culture is pending, and 10 years on IV Solu-Medrol, and breathing treatments. No complaints of chest pain, no hemoptysis, patient has been able to ambulate, tolerated activity fairly well. Clinically improving. On 05/15/2019 patient seen in follow-up on medical surgical floor. He continues to improve, currently on room air, denies any cough or congestion, lung sounds reveal diminished breath sounds bilaterally but some mild rare scattered rales, afebrile, sputum culture showed no growth. Blood and urine cultures were negative as well, patient has been treated with the IV Levaquin for immunity acquired pneumonia, he responded very well to treatments. Improving, from pulmonary perspective patient can go home today Objective - Vital Signs Vital signs: Vital Signs Temp 98 F 05/15/19 11:51 Pulse 88 05/15/19 12:13 Resp 16 05/15/19 11:51 BP 143/74 05/15/19 11:51 Pulse Ox 91 L 05/15/19 11:51 Intake & Output 05/14/19 05/15/19 05/15/19 18:59 06:59 18:59 Intake Total 1060 390 480 Balance 1060 390 480 Intake: Oral 1060 390 480 Other: Voiding Method Urinal Urinal Urinal # Voids 2 1 - Exam GENERAL EXAM: Alert, pleasant, 63-year-old white male comfortable in no apparent distress. HEAD: Normocephalic/atraumatic. EYES: Normal reaction of pupils, equal size. Conjunctiva pink, sclera white. NOSE: Clear with pink turbinates. THROAT: No erythema or exudates. NECK: No masses, no JVD, no thyroid enlargement, no adenopathy. CHEST: No chest wall deformity. Symmetrical expansion. LUNGS: Equal air entry with with basilar crackles bilaterally, left greater than the right, and has congested cough CVS: Regular rate and rhythm, normal S1 and S2, no gallops, no murmurs, no rubs ABDOMEN: Soft, nontender. No hepatosplenomegaly, normal bowel sounds, no guarding or rigidity. EXTREMITIES: No clubbing, no edema, no cyanosis, 2+ pulses and upper and lower extremities. MUSCULOSKELETAL: Muscle strength and tone normal. SPINE: No scoliosis or deformity SKIN: No rashes CENTRAL NERVOUS SYSTEM: Alert and oriented -3. No focal deficits, tone is normal in all 4 extremities. PSYCHIATRIC: Alert and oriented -3. Appropriate affect. Intact judgment and insight. - Labs CBC & Chem 7: 05/15/19 06:58 05/15/19 06:58 Labs: Abnormal Lab Results - Last 24 Hours (Table) 05/15/19 05/15/19 Range/Units 06:58 06:58 WBC 18.1 H (3.8-10.6) k/uL Hgb 12.6 L (13.0-17.5) gm/dL Neutrophils # 17.0 H (1.3-7.7) k/uL Lymphocytes # 0.6 L (1.0-4.8) k/uL BUN 24 H (9-20) mg/dL Glucose 135 H (74-99) mg/dL Microbiology - Last 24 Hours (Table) 05/12/19 Unknown Gram Stain - Final Sputum Sputum Culture - Final 05/12/19 13:15 Blood Culture - Preliminary Blood No Growth after 48 hours Assessment and Plan Plan: Assessment: #1. Dyspnea related to acute coronary acquired pneumonia involving the left lung, CTA chest was negative for PE, but did show groundglass density and consolidation with air bronchograms in the left upper lobe and lingula as well as multifocal within the lower lobes, patient had been given IM Rocephin 2 days prior to presentation with lack of improvement #2. History of esophageal cancer with history of surgical resection #3. GERD/reflux #4. Hypertension #5. Stage II COPD, with a baseline FEV1 of 62% of predicted not on home oxygen #6. Former smoker, quit 35 years ago, did smoke for 25 years half a pack to 1 pack a day #7. Past history of sleep apnea, not currently requiring CPAP related to large weight loss Plan: Patient is stable from pulmonary perspective, continues to improve, vital signs are stable, no fever or chills, cultures remain negative, breathing easier, no cough or congestion, no chest pain, tolerating a relation, stable for discharge today and he will finish outpatient course of oral Levaquin, patient can follow up with Dr. Alvares in the office in one week I performed a history & physical examination of the patient and discussed their management with my nurse practitioner, Precious Hughes. I reviewed the nurse pr actitioner's note and agree with the documented findings and plan of care. Lung sounds are positive for diffuse rales. The findings and the impression was discussed with the patient. I attest to the documentation by the nurse practitioner. Time with Patient: Less than 30
== END 2019-05-15 16:02 | disposition home health service (06) | DRG 871 ==
LOC: EC 11:57 → 4MS4W 15:33 → 3NMEDONC 17:40 → OBSVTOIN 05-13 15:33
PROVIDERS: ADMIT Hospitalist; ATTEND Hospitalist
DX: A41.9 Sepsis, unspecified organism (principal); J18.1 Lobar pneumonia, unspecified organism; J44.0 Chronic obstructive pulmonary disease with (acute) lower respiratory infection; J44.1 Chronic obstructive pulmonary disease with (acute) exacerbation; G62.9 Polyneuropathy, unspecified; F32.9 Major depressive disorder, single episode, unspecified; F41.9 Anxiety disorder, unspecified; I10 Essential (primary) hypertension; I25.10 Atherosclerotic heart disease of native coronary artery without angina pectoris; K21.9 Gastro-esophageal reflux disease without esophagitis; R59.0 Localized enlarged lymph nodes; Z79.82 Long term (current) use of aspirin; Z79.899 Other long term (current) drug therapy; Z85.01 Personal history of malignant neoplasm of esophagus; Z87.891 Personal history of nicotine dependence; Z96.651 Presence of right artificial knee joint; Z90.49 Acquired absence of other specified parts of digestive tract; Z80.0 Family history of malignant neoplasm of digestive organs; Z82.49 Family history of ischemic heart disease and other diseases of the circulatory system
CPT/HCPCS: 36415; 71046; 71275; 80048; 80053; 81001; 83605; 84484; 85025; 85610; 85730; 87040; 87070; 87086; 87205; 87502; 93005; 94640; 94760; 96365; 96366; 96367; 96375; 99285

== ENCOUNTER 2019-06-08 15:50 | Inpatient (IN) | payer BC, MEDICARE ==
[2019-06-08] MEDS ORDERED: methylPREDNISolone SOD SUCCI 125 MG/2 ML VIAL IV STA (16:53)
--- NOTE | 2019-06-08 17:13 | ED ---
General Adult HPI - General Chief complaint: Shortness of Breath Stated complaint: pneumonia Time Seen by Provider: 06/08/19 16:19 Source: patient Mode of arrival: ambulatory Limitations: no limitations - History of Present Illness Initial comments: Patient is a 64-year-old male with a history of recurrent pneumonia and COPD is presenting to emergency Department after he was sent from the primary care. Patient reports she was admitted to [facility] after a four-day stay on May 15 for pneumonia. Patient reports he had no issues until 2 days ago he developed a cough and increased sputum production. Patient reports yellow sputum production. Patient also reports that he developed a fever went to the primary care who obtained an x-ray and suggested the patient go to emergency department for further management. Patient reports chest pain at full aspiration and alleviated wrist. Patient reports taking ipratropium nebulizer 4 times a day. - Related Data Home Medications Medication Instructions Recorded Confirmed Omeprazole 40 mg PO HS 04/26/17 06/08/19 Aspirin [Adult Low Dose Aspirin EC] 81 mg PO DAILY 10/02/18 06/08/19 cloNIDine HCL [Catapres] 0.1 mg PO BID 10/02/18 06/08/19 Glycopyrrolate/Formoterol Fum 1 puff INHALATION RT-DAILY PRN 03/20/19 06/08/19 [Bevespi Aerosphere Inhaler] Losartan Potassium 100 mg PO DAILY 03/20/19 06/08/19 Vortioxetine Hydrobromide 5 mg PO DAILY 03/20/19 06/08/19 [Trintellix] Primidone [Mysoline] 50 mg PO HS 05/12/19 06/08/19 Famotidine [Pepcid] 20 mg PO BID 06/08/19 06/08/19 Ipratropium-Albuterol Nebulize 3 ml INHALATION RT-QID 06/08/19 06/08/19 [Duoneb 0.5 mg-3 mg/3 ml Soln] Omeprazole 20 mg PO AC-BID 06/08/19 06/08/19 Allergies Allergy/AdvReac Type Severity Reaction Status Date / Time No Known Allergies Allergy Verified 06/08/19 18:43 Review of Systems ROS Statement: Those systems with pertinent positive or pertinent negative responses have been documented in the HPI. ROS Other: All systems not noted in ROS Statement are negative. Past Medical History Past Medical History: Cancer, GERD/Reflux, Hypertension Additional Past Medical History / Comment(s): Neuropathy; esophageal cancer txed with surgery, past hx of sleep apnea and diabetes but none now after 150 pound weight loss, STATES falls easily, tremor, seizures last one was apprximately 3 days ago, History of Any Multi-Drug Resistant Organisms: None Reported Past Surgical History: Appendectomy, Hernia Repair, Joint Replacement, Orthoped ic Surgery Additional Past Surgical History / Comment(s): LEFT ROTATOR CUFF.hilary. elbow, hilary wrist carpal tunnel, rt shoulder rotator cuff, rt knee arthroscopy, surgery for esophageal cancer (removed part of esophagus and removed part of stomach making it into carrot shaper per patient), rt knee replacement, hernia surgery x3 Past Anesthesia/Blood Transfusion Reactions: Previous Problems w/ Anesthesia Additional Past Anesthesia/Blood Transfusion Reaction / Comment(s): can not lay flat- "stomach acid will come out my nose" Past Psychological History: Anxiety, Depression Smoking Status: Former smoker Past Alcohol Use History: None Reported Past Drug Use History: None Reported - Past Family History Father Family Medical History: Cancer Additional Family Medical History / Comment(s): COLON Mother Family Medical History: Cancer, Deep Vein Thrombosis (DVT) Additional Family Medical History / Comment(s): brain aneurysm General Exam Limitations: no limitations Course Vital Signs 06/08/19 06/08/19 06/08/19 16:04 17:40 18:00 Temperature 99.1 F Pulse Rate 86 80 82 Pulse Rate [ Pulse Oximetery ] Respiratory 22 17 14 Rate Blood Pressure 126/82 132/89 140/86 Blood Pressure [Left Arm] O2 Sat by Pulse 94 L 94 L 93 L Oximetry 06/08/19 06/08/19 06/08/19 18:11 18:20 20:00 Temperature 97.6 F Pulse Rate 76 76 Pulse Rate [ 91 Pulse Oximetery ] Respiratory 18 Rate Blood Pressure Blood Pressure 134/78 [Left Arm] O2 Sat by Pulse 92 L Oximetry Medical Decision Making - Medical Decision Making Patient is 64-year-old male presents emergency Department with a chief complaint of pneumonia. Imaging was reviewed with Dr. Macias that was obtained at the primary care. Patient appears to have lower pneumonia. CBC is indicative of leukocytosis. Patient was given a DuoNeb nebulized treatment and methylprednisolone. Patient is given 1 mg of Rocephin. Due to the history of recurrent pneumonia and COPD, along with increase sputum production. The patient will be admitted for further medical management. Case discussed with physician. - Lab Data Result diagrams: 06/08/19 17:08 06/08/19 17:08 Lab Results 06/08/19 06/08/19 06/08/19 Range/Units 17:08 17:08 17:08 WBC 13.1 H (3.8-10.6) k/uL RBC 5.14 (4.30-5.90) m/uL Hgb 14.9 (13.0-17.5) gm/dL Hct 44.8 (39.0-53.0) % MCV 87.1 (80.0-100.0) fL MCH 29.0 (25.0-35.0) pg MCHC 33.4 (31.0-37.0) g/dL RDW 15.9 H (11.5-15.5) % Plt Count 245 (150-450) k/uL Neutrophils % 81 % Lymphocytes % 10 % Monocytes % 6 % Eosinophils % 1 % Basophils % 0 % Neutrophils # 10.6 H (1.3-7.7) k/uL Lymphocytes # 1.3 (1.0-4.8) k/uL Monocytes # 0.8 (0-1.0) k/uL Eosinophils # 0.2 (0-0.7) k/uL Basophils # 0.0 (0-0.2) k/uL PT 10.5 (9.0-12.0) sec INR 1.0 (<1.2) APTT 23.7 (22.0-30.0) sec Sodium 136 L (137-145) mmol/L Potassium 4.4 (3.5-5.1) mmol/L Chloride 105 (98-107) mmol/L Carbon Dioxide 22 (22-30) mmol/L Anion Gap 9 mmol/L BUN 24 H (9-20) mg/dL Creatinine 0.72 (0.66-1.25) mg/dL Est GFR (CKD-EPI)AfAm >90 (>60 ml/min/1.73 sqM) Est GFR (CKD-EPI)NonAf >90 (>60 ml/min/1.73 sqM) Glucose 121 H (74-99) mg/dL Calcium 9.0 (8.4-10.2) mg/dL Total Bilirubin 0.9 (0.2-1.3) mg/dL AST 17 (17-59) U/L ALT 19 L (21-72) U/L Alkaline Phosphatase 58 (38-126) U/L Troponin I (0.000-0.034) ng/mL Total Protein 6.6 (6.3-8.2) g/dL Albumin 4.0 (3.5-5.0) g/dL 06/08/19 Range/Units 17:08 WBC (3.8-10.6) k/uL RBC (4.30-5.90) m/uL Hgb (13.0-17.5) gm/dL Hct (39.0-53.0) % MCV (80.0-100.0) fL MCH (25.0-35.0) pg MCHC (31.0-37.0) g/dL RDW (11.5-15.5) % Plt Count (150-450) k/uL Neutrophils % % Lymphocytes % % Monocytes % % Eosinophils % % Basophils % % Neutrophils # (1.3-7.7) k/uL Lymphocytes # (1.0-4.8) k/uL Monocytes # (0-1.0) k/uL Eosinophils # (0-0.7) k/uL Basophils # (0-0.2) k/uL PT (9.0-12.0) sec INR (<1.2) APTT (22.0-30.0) sec Sodium (137-145) mmol/L Potassium (3.5-5.1) mmol/L Chloride (98-107) mmol/L Carbon Dioxide (22-30) mmol/L Anion Gap mmol/L BUN (9-20) mg/dL Creatinine (0.66-1.25) mg/dL Est GFR (CKD-EPI)AfAm (>60 ml/min/1.73 sqM) Est GFR (CKD-EPI)NonAf (>60 ml/min/1.73 sqM) Glucose (74-99) mg/dL Calcium (8.4-10.2) mg/dL Total Bilirubin (0.2-1.3) mg/dL AST (17-59) U/L ALT (21-72) U/L Alkaline Phosphatase (38-126) U/L Troponin I <0.012 (0.000-0.034) ng/mL Total Protein (6.3-8.2) g/dL Albumin (3.5-5.0) g/dL Disposition Clinical Impression: Pneumonia Disposition: ADMITTED IP TO THIS HOSP Condition: Stable Is patient prescribed a controlled substance at d/c from ED?: No Time of Disposition: 20:49
[2019-06-08] MEDS ORDERED: IPRATROPIUM-ALBUTEROL 3 ML NEB INHALATION STA (17:17)
[2019-06-08 17:18] LABS: Basophils % (A) 0 %; Eosinophils # (A) 0.2 k/uL (0-0.7); Eosinophils % (A) 1 %; HCT 44.8 % (39.0-53.0); HGB 14.9 gm/dL (13.0-17.5); Lymphocytes # (A) 1.3 k/uL (1.0-4.8); Lymphocytes % (A) 10 %; MCHC 33.4 g/dL (31.0-37.0); MCV 87.1 fL (80.0-100.0); Mean Platelet Volume 6.9; Monocytes # (A) 0.8 k/uL (0-1.0); Monocytes % (A) 6 %; Neutrophils # (A) 10.6 k/uL (1.3-7.7); Neutrophils % (A) 81 %; Platelet Count 245 k/uL (150-450); RBC 5.14 m/uL (4.30-5.90); RDW 15.9 % (11.5-15.5); WBC 13.1 k/uL (3.8-10.6)
[2019-06-08 17:28] LABS: ALT 19 U/L (21-72); AST 17 U/L (17-59); African American GFR (CKD) >90 (>60 ml/min/1.73 sqM); Alkaline Phosphatase 58 U/L (38-126); Anion Gap 9 mmol/L; Blood Urea Nitrogen 24 mg/dL (9-20); Carbon Dioxide 22 mmol/L (22-30); Chloride 105 mmol/L (98-107); Glucose 121 mg/dL (74-99); Non-African American GFR(CKD) >90 (>60 ml/min/1.73 sqM); Partial Thromboplastin Time 23.7 sec (22.0-30.0); Potassium 4.4 mmol/L (3.5-5.1); Prothrombin Time 10.5 sec (9.0-12.0); Sodium 136 mmol/L (137-145); Total Bilirubin 0.9 mg/dL (0.2-1.3); Total Protein 6.6 g/dL (6.3-8.2)
[2019-06-08] MEDS ORDERED: NALOXONE 0.4 MG/ML 1 ML VIAL IV PRN (18:19)
[2019-06-08] MEDS ORDERED: cefTRIAXone IN SWFI 1,000 MG/10 ML SYRINGE IVP STA (18:25)
[2019-06-08] MEDS: SODIUM CHLORIDE 0.9% 1,000 ML IV SCH ×2 (18:52→20:31)
[2019-06-08 20:19] VITALS: BMI 32.0
[2019-06-08] MEDS ORDERED: IPRATROPIUM-ALBUTEROL 3 ML NEB INHALATION PRN (22:38)
--- NOTE | 2019-06-09 03:02 | P.HPIM ---
History of Present Illness H&P Date: 06/08/19 The patient is a 64-year-old male with a PMH of hypertension, COPD, GERD, seizure disorder, neuropathy, and esophageal malignancy s/p surgery 9 years ago presented to the ED from his PMDs office for shortness of breath and chest discomfort. The patient was recently admitted to the hospital on 05/13/19 for pneumonia and was discharge with a course of Levaquin. The patient states that he had completed his course and had returned back to his baseline when he started feeling gradually worsening cough, productive of yellow phlegm, along with shortness of breath, over the past 2 days. The patient was seen at his PMDs office earlier today where he was found to have a fever, as per the patient, and with his additional symptoms, he was advised to go to the ED. At time of interview, the patient reports an epigastric pleuritic discomfort, nonexertional, with no associated nausea, vomiting, diaphoresis, or palpitations. He underwent an extensive evaluation in the ED with WBC count 13.1, hemoglobin 14.9, platelets 245, BUN 24, creatinine 0.72, glucose 121. His troponin was less than 0.012. CXR from outside facility as reviewed by me showed a L middle lobe consolidation. The patient is being admitted for further management of pneumonia. Review of Systems Pertinent positives and negatives as discussed in HPI, a complete review of systems was performed and all other systems are negative. Past Medical History Past Medical History: Cancer, GERD/Reflux, Hypertension Additional Past Medical History / Comment(s): Neuropathy; esophageal cancer txed with surgery, past hx of sleep apnea and diabetes but none now after 150 pound weight loss, STATES falls easily, tremor History of Any Multi-Drug Resistant Organisms: None Reported Past Surgical History: Appendectomy, Hernia Repair, Joint Replacement, Orthopedic Surgery Additional Past Surgical History / Comment(s): LEFT ROTATOR CUFF.hilary. elbow, hilary wrist carpal tunnel, rt shoulder rotator cuff, rt knee arthroscopy, surgery for esophageal cancer (removed part of esophagus and removed part of stomach making it into carrot shaper per patient), rt knee replacement, hernia surgery x3 Past Anesthesia/Blood Transfusion Reactions: Previous Problems w/ Anesthesia Additional Past Anesthesia/Blood Transfusion Reaction / Comment(s): can not lay flat- "stomach acid will come out my nose" Past Psychological History: Anxiety, Depression Smoking Status: Former smoker Past Alcohol Use History: None Reported Past Drug Use History: None Reported - Past Family History Father Family Medical History: Cancer Additional Family Medical History / Comment(s): COLON Mother Family Medical History: Cancer, Deep Vein Thrombosis (DVT) Additional Family Medical History / Comment(s): brain aneurysm Medications and Allergies Home Medications Medication Instructions Recorded Confirmed Type Omeprazole 40 mg PO HS 04/26/17 06/08/19 History Aspirin [Adult Low Dose Aspirin EC] 81 mg PO DAILY 10/02/18 06/08/19 History cloNIDine HCL [Catapres] 0.1 mg PO BID 10/02/18 06/08/19 History Glycopyrrolate/Formoterol Fum 1 puff INHALATION RT-DAILY PRN 03/20/19 06/08/19 History [Bevespi Aerosphere Inhaler] Losartan Potassium 100 mg PO DAILY 03/20/19 06/08/19 History Vortioxetine Hydrobromide 5 mg PO DAILY 03/20/19 06/08/19 History [Trintellix] Primidone [Mysoline] 50 mg PO HS 05/12/19 06/08/19 History Famotidine [Pepcid] 20 mg PO BID 06/08/19 06/08/19 History Ipratropium-Albuterol Nebulize 3 ml INHALATION RT-QID 06/08/19 06/08/19 History [Duoneb 0.5 mg-3 mg/3 ml Soln] Omeprazole 20 mg PO AC-BID 06/08/19 06/08/19 History Allergies Allergy/AdvReac Type Severity Reaction Status Date / Time No Known Allergies Allergy Verified 06/08/19 18:43 Physical Exam Vitals: Vital Signs Temp Pulse Pulse Resp BP BP Pulse Ox 06/08/19 20:00 97.6 F 91 18 134/78 92 L 06/08/19 18:20 76 06/08/19 18:11 76 06/08/19 18:00 82 14 140/86 93 L 06/08/19 17:40 80 17 132/89 94 L 06/08/19 16:04 99.1 F 86 22 126/82 94 L Intake and Output 06/08/19 06/08/19 06/08/19 06:59 14:59 22:59 Intake Total 20 Balance 20 Intake: Amount of Fluid Infused ( 20 ml) Other: Weight 101.196 kg General: non toxic, no distress, appears at stated age, obese Derm: no unusual rashes/lesions no unusual ecchymoses, warm, dry Head: atraumatic, normocephalic, symmetric Eyes: EOMI, no lid lag, anicteric sclera, pupils equal round reactive to light ENT: Nose and ears atraumatic, no thrush, no pharyngeal erythema Neck: No thyromegaly, no cervical lymphadenopathy, trachea midline, supple Mouth: no lip lesion, mucus membranes moist Cardiovascular: S1S2 reg, no murmur, positive posterior tibial pulse bilateral, no edema, capillary refill less than 2 seconds Lungs: Poor air entry bilaterally, scattered rhonchi, no accessory muscle use Abdominal: soft, ventral hernia, reducible, nontender to palpation, no guarding, no appreciable organomegaly, normal bowel sounds Ext: no gross muscle atrophy, muscle strength 5 out of 5 in all 4 extremities grossly, no contractures, Neuro: CN II-XI grossly intact, no focal deficits Psych: Alert, oriented, appropriate affect Results CBC & Chem 7: 06/08/19 17:08 06/08/19 17:08 Labs: Abnormal Lab Results - Last 24 Hours (Table) 06/08/19 06/08/19 Range/Units 17:08 17:08 WBC 13.1 H (3.8-10.6) k/uL RDW 15.9 H (11.5-15.5) % Neutrophils # 10.6 H (1.3-7.7) k/uL Sodium 136 L (137-145) mmol/L BUN 24 H (9-20) mg/dL Glucose 121 H (74-99) mg/dL ALT 19 L (21-72) U/L Thrombosis Risk Factor Assmnt - Choose All That Apply Any of the Below Risk Factors Present?: Yes Each Factor Represents 1 point: Obesity (BMI >25) Other Risk Factors: Yes Each Risk Factor Represents 2 Points: Age 61-74 years Other congenital or acquired thrombophilia - If yes, enter type in comment: No Thrombosis Risk Factor Assessment Total Risk Factor Score: 3 Thrombosis Risk Factor Assessment Level: Moderate Risk Assessment and Plan Plan: Sepsis secondary to hospital-acquired pneumonia -Start patient on cefepime -Pulmonary consult -Sputum and blood cultures -Supplemental oxygen COPD without exacerbation -C/w Duonebs and Symbicort Seizure disorder -Last seizure several years ago -Not on medications Chronic conditions: GERD, HTN, Neuropathy -C/w home meds DVT prophylaxis -Heparin The patient is admitted with an anticipated less than 2 midnight stay for evaluation of sepsis CODE STATUS: Full Code Discussed with: Patient Anticipated discharge date: 06/11/[address]: Home A total of 40 minutes was spent on the care of this complex patient more than 50% of the time was spent in counseling and care coordination.
[2019-06-09] MEDS: CEFEPIME 2 GM in SODIUM CHLORIDE 0.9% 100 ML IVPB SCH ×3 (03:17→20:59)
[2019-06-09 06:55] LABS: Anisocytosis Slight; HCT 42.6 % (39.0-53.0); HGB 13.7 gm/dL (13.0-17.5); MCH 28.5 pg (25.0-35.0); MCHC 32.1 g/dL (31.0-37.0); MCV 88.6 fL (80.0-100.0); Mean Platelet Volume 6.9; Platelet Count 273 k/uL (150-450); RBC 4.81 m/uL (4.30-5.90); RDW 16.1 % (11.5-15.5); WBC 8.6 k/uL (3.8-10.6)
[2019-06-09] MEDS: IPRATROPIUM-ALBUTEROL 3 ML NEB INHALATION SCH ×4 (07:17→19:27)
[2019-06-09] MEDS: SYMBICORT 160-4.5 MCG INHALER INHALATION SCH ×2 (07:18→19:27)
[2019-06-09] MEDS ORDERED: AZITHROMYCIN 500 MG TAB PO SCH (09:00)
[2019-06-09] MEDS: HEPARIN SODIUM,PORCINE 5,000 UNIT/ML 1 ML VIAL SQ SCH ×3 (09:06→23:27)
[2019-06-09] MEDS: FAMOTIDINE 20 MG TAB PO SCH ×2 (09:06→20:59)
[2019-06-09] MEDS: cloNIDine HCL 0.1 MG TAB PO SCH ×2 (09:06→20:59)
[2019-06-09] MEDS: ASPIRIN 81 MG PO SCH (09:06)
[2019-06-09] MEDS: LOSARTAN 50 MG TAB PO SCH (09:07)
[2019-06-09] MEDS: VORTIOXETINE HYDROBROMIDE 10 MG TABLET PO SCH (09:07)
--- NOTE | 2019-06-09 15:24 | XR ---
EXAMINATION TYPE: XR chest 2V DATE OF EXAM: 06/09/2019 COMPARISON: CT May 12, 2019. Outside chest x-ray from yesterday. HISTORY: Pneumonia progress study. TECHNIQUE: Frontal and lateral views of the chest are obtained. FINDINGS: There is improved aeration lateral left mid lung. Right lung opacity consistent with gastr ic pull-up redemonstrated. No pleural effusion or pneumothorax is seen bilaterally . The cardiac silh ouette size is upper limits of normal. The osseous structures are intact. IMPRESSION: Persistent but improving lateral left midlung acute infiltrate and/or atelectasis.
--- NOTE | 2019-06-09 16:19 | P.PN ---
Subjective Progress Note Date: 06/09/19 Principal diagnosis: Pneumonia Patient was seen and examined. No acute events overnight. Patient reports no changes in his breathing since yesterday. States that he was discharged in late April for pneumonia. Patient reports that he initially felt better after discharge but over the last week has been progressively feeling worse. Complains of cough productive of sputum. Also complains of right-sided chest pain with deep inspiration and with heavy coughing. He denies any nausea or vomiting. No fever or chills. His is at bedside. Objective - Vital Signs Vital signs: Vital Signs Temp 97.4 F L 06/09/19 08:00 Pulse 98 06/09/19 15:38 Resp 18 06/09/19 15:38 BP 130/63 06/09/19 08:00 Pulse Ox 94 L 06/09/19 15:25 Intake & Output 06/08/19 06/09/19 06/09/19 18:59 06:59 18:59 Intake Total 180 Balance 180 Weight 101.196 kg Intake: Amount of Fluid Infused ( 20 ml) Intake, IV Titration 160 Amount Sodium Chloride 0.9% 1, 160 000 ml @ 20 mls/hr IV . Q24H [facility] Rx#:[id number] Other: Voiding Method Toilet # Voids 1 1 - Exam General: [non toxic], [no distress], [appears at stated age] Derm: [warm], [dry] Head: [atraumatic], [normocephalic], [symmetric] Eyes: [EOMI], [no lid lag], [anicteric sclera] Mouth: [no lip lesion], [mucus membranes moist] Cardiovascular: [S1S2 reg], [no murmur], [positive DP pulse bilateral] Lungs: [CTA bilateral], [rhonchi bilaterally] , [no accessory muscle use] Abdominal: [soft], [ nontender to palpation], [no guarding], [no appreciable organomegaly] Ext: [no gross muscle atrophy], [no edema], [no contractures] Neuro: [no focal neuro deficits] Psych: [Alert], [oriented], [appropriate affect] - Labs CBC & Chem 7: 06/09/19 06:31 06/08/19 17:08 Labs: Abnormal Lab Results - Last 24 Hours (Table) 06/08/19 06/08/19 06/09/19 Range/Units 17:08 17:08 06:31 WBC 13.1 H (3.8-10.6) k/uL RDW 15.9 H 16.1 H (11.5-15.5) % Neutrophils # 10.6 H (1.3-7.7) k/uL Sodium 136 L (137-145) mmol/L BUN 24 H (9-20) mg/dL Glucose 121 H (74-99) mg/dL ALT 19 L (21-72) U/L Assessment and Plan Assessment: Assessment and Plan Sepsis related to hospital-acquired pneumonia Elevated BUN COPD without exacerbation Seizure disorder Hypertension Patient initially met sepsis criteria. Leukocytosis of 13.1. Pulse greater than 90. Chest x-ray shows persistent and improving lateral left midlung acute infiltrate. Plans: Continue cefepime, not high risk for MRSA. Optimize COPD medications. O2 per NC to maintain O2 saturation greater than 92%. Follow lactic acid. Follow pulmonology consultation. Follow sputum culture. Follow blood culture. BUN 24. Creatinine within normal limits. Likely due to dehydration. Plans: Encourage hydration by mouth. Repeat BMP tomorrow morning. Plans: DuoNeb scheduled and as needed for shortness of breath and wheezing. Continue Symbicort. Plans: Seizure precautions. BP 140/86. Plans: Continue losartan and clonidine. Monitor vitals, adjust medications as necessary. [Patient admitted for hospital-acquired pneumonia. Pulmonology has been consulted. He is pending clinical improvement. Likely DC in 2-3 days.]
[2019-06-09] MEDS ORDERED: VANCOMYCIN IV PER PHARMACY 1 EACH MISC MISCELLANE PRN (17:02)
[2019-06-09] MEDS ORDERED: SODIUM CHLORIDE 0.9% 1,000 ML IV ONE (17:03)
[2019-06-09] MEDS ORDERED: VANCOMYCIN 1,500 MG in SODIUM CHLORIDE 0.9% 250 ML IVPB SCH (17:15)
[2019-06-09] MEDS ORDERED: VANCOMYCIN 1,750 MG in SODIUM CHLORIDE 0.9% 500 ML 500 ML IVPB ONE (18:00)
[2019-06-09] MEDS ORDERED: LEVOFLOXACIN 750MG-D5W PMX 750 MG in DEXTROSE/WATER 1 150ML.BAG IVPB SCH (18:00)
[2019-06-09] MEDS: SODIUM CHLORIDE 0.9% 1,000 ML IV SCH (18:42)
[2019-06-09] MEDS: PRIMIDONE 50 MG TAB PO SCH (20:59)
[2019-06-10] MEDS: CEFEPIME 2 GM in SODIUM CHLORIDE 0.9% 100 ML IVPB SCH ×3 (03:14→19:30)
[2019-06-10] MEDS: SODIUM CHLORIDE 0.9% 1,000 ML IV SCH ×3 (03:17→23:16)
[2019-06-10] MEDS: VANCOMYCIN 1,500 MG in SODIUM CHLORIDE 0.9% 250 ML IVPB SCH ×3 (06:38→21:22)
[2019-06-10] MEDS: SYMBICORT 160-4.5 MCG INHALER INHALATION SCH ×2 (08:34→21:09)
[2019-06-10] MEDS: IPRATROPIUM-ALBUTEROL 3 ML NEB INHALATION SCH ×4 (08:34→21:10)
[2019-06-10] MEDS: VORTIOXETINE HYDROBROMIDE 10 MG TABLET PO SCH (08:50)
[2019-06-10] MEDS: cloNIDine HCL 0.1 MG TAB PO SCH ×2 (08:51→20:26)
[2019-06-10] MEDS: FAMOTIDINE 20 MG TAB PO SCH ×2 (08:51→20:26)
[2019-06-10] MEDS: HEPARIN SODIUM,PORCINE 5,000 UNIT/ML 1 ML VIAL SQ SCH ×3 (08:51→23:15)
[2019-06-10] MEDS: ASPIRIN 81 MG PO SCH (08:51)
[2019-06-10] MEDS: LOSARTAN 50 MG TAB PO SCH (08:51)
--- NOTE | 2019-06-10 08:59 | P.CONS ---
History of Present Illness - Reason for Consult Consult date: 06/10/19 Sepsis - History of Present Illness This is a 64-year-old male with past history significant for COPD with recent admission for pneumonia May 13 through May 15. The patient was discharged on Levaquin which she completed as well as prednisone taper and nebulizer. Patient states he had a follow-up appointment Dr. Mckenzie last as chest x-ray was done and he was told it was completely clear. On Saturday he was camping and he started feeling ill. He complains of cough with sputum production, fever, chest pain. He states he slept all day on Saturday.Patient went to see his primary care physician and was told to come into the hospital for evaluation and admission. The patient has been afebrile, white count 13.1, initial lactic acid 3. 7 repeat of 1.7. Blood cultures no growth at 24 hours and sputum culture status received. Chest x-ray showed persistent but improving lateral left mid lung acute infiltrate or atelectasis. Patient was given IV fluids, Rocephin, Solu-Medrol and admitted to the [facility] floor. Patient is currently on cefepime, Levaquin and vancomycin. Patient states that his breathing is much improved, chest pain has resolved. He denies having any fevers. Patient does give history of having asbestos exposure when he was working as a [employer] which she is currently retired. Patient smoked remotely for 10 years ago with 32 years ago. The patient did receive his pneumonia vaccine. He did not receive influenza vaccine last year. Patient does have history of esophageal cancer status post resection 9 years ago without recurrence and peripheral neuropathy of unclear etiology, worked up at [facility]. Review of Systems Constitutional: Reports chills, Reports fatigue, Reports fever, Reports lethargy, Reports malaise, Denies anorexia, Denies chronic headaches, Denies poor appetite Ears, nose, mouth and throat: Reports vertigo, Denies dysphagia, Denies mouth pain, Denies nasal congestion, Denies nasal discharge, Denies sore throat Cardiovascular: Reports chest pain, Reports lightheadedness, Reports shortness of breath, Denies edema, Denies leg edema, Denies syncope Respiratory: Reports cough, Reports cough with sputum, Reports dyspnea, Reports respiratory infections, Denies excessive sputum, Denies hemoptysis, Denies home oxygen Gastrointestinal: Denies abdominal pain, Denies diarrhea, Denies loss of a ppetite, Denies nausea, Denies vomiting Genitourinary: Denies dysuria, Denies urinary frequency, Denies urinary retention Musculoskeletal: Reports myalgias, Denies frequent falls, Denies gait dysfunction, Denies muscle weakness Integumentary: Denies pruritus, Denies rash, Denies wounds Neurological: Denies change in mentation, Denies change in speech, Denies gait dysfunction, Denies numbness, Denies weakness Psychiatric: Denies anxiety, Denies depression Endocrine: Denies fatigue, Denies weight change Past Medical History Past Medical History: Cancer, GERD/Reflux, Hypertension Additional Past Medical History / Comment(s): Neuropathy; esophageal cancer txed with surgery, past hx of sleep apnea and diabetes but none now after 150 pound weight loss, STATES falls easily, tremor History of Any Multi-Drug Resistant Organisms: None Reported Past Surgical History: Appendectomy, Hernia Repair, Joint Replacement, Orthopedic Surgery Additional Past Surgical History / Comment(s): LEFT ROTATOR CUFF.hilary. elbow, hilary wrist carpal tunnel, rt shoulder rotator cuff, rt knee arthroscopy, surgery for esophageal cancer (removed part of esophagus and removed part of stomach making it into carrot shaper per patient), rt knee replacement, hernia surgery x3 Past Anesthesia/Blood Transfusion Reactions: Previous Problems w/ Anesthesia Additional Past Anesthesia/Blood Transfusion Reaction / Comm: can not lay flat- "stomach acid will come out my nose" Past Psychological History: Anxiety, Depression Smoking Status: Former smoker Past Alcohol Use History: None Reported Additional Past Alcohol Use History / Comment(s): Patient was a smoker one pack per day for 10 years and quit ago 32 years ago. He lives at home with his . He is retired [employer] with exposure to asbestos. There is one cat, a Great Power and a Mountainh terrier in the home. Patient enjoys camping, bicycling, gardening and yard work. No recent travel outside of [place]. The patient has been camping in [place]. Past Drug Use History: None Reported - Past Family History Father Family Medical History: Cancer Additional Family Medical History / Comment(s): COLON Mother Family Medical History: Cancer, Deep Vein Thrombosis (DVT) Additional Family Medical History / Comment(s): brain aneurysm Medications and Allergies Home Medications Medication Instructions Recorded Confirmed Type Omeprazole 40 mg PO HS 04/26/17 06/08/19 History Aspirin [Adult Low Dose Aspirin EC] 81 mg PO DAILY 10/02/18 06/08/19 History cloNIDine HCL [Catapres] 0.1 mg PO BID 10/02/18 06/08/19 History Glycopyrrolate/Formoterol Fum 1 puff INHALATION RT-DAILY PRN 03/20/19 06/08/19 History [Bevespi Aerosphere Inhaler] Losartan Potassium 100 mg PO DAILY 03/20/19 06/08/19 History Vortioxetine Hydrobromide 5 mg PO DAILY 03/20/19 06/08/19 History [Trintellix] Primidone [Mysoline] 50 mg PO HS 05/12/19 06/08/19 History Famotidine [Pepcid] 20 mg PO BID 06/08/19 06/08/19 History Ipratropium-Albuterol Nebulize 3 ml INHALATION RT-QID 06/08/19 06/08/19 History [Duoneb 0.5 mg-3 mg/3 ml Soln] Omeprazole 20 mg PO AC-BID 06/08/19 06/08/19 History Allergies Allergy/AdvReac Type Severity Reaction Status Date / Time No Known Allergies Allergy Verified 06/08/19 18:43 Physical Exam Vitals: Vital Signs Temp Pulse Pulse Resp BP Pulse Ox 06/10/19 08:34 80 06/10/19 04:00 97.6 F 84 17 154/71 97 06/10/19 00:00 97.6 F 90 18 131/77 97 06/09/19 20:05 98.9 F 98 19 131/76 96 06/09/19 19:42 97 18 06/09/19 19:27 101 H 18 06/09/19 18:00 98.2 F 102 H 18 134/73 92 L 06/09/19 16:00 97.5 F L 101 H 18 152/79 94 L 06/09/19 15:38 98 18 06/09/19 15:25 100 18 94 L 06/09/19 11:19 92 20 06/09/19 11:04 95 18 Intake and Output 06/09/19 06/10/19 06/10/19 22:59 06:59 14:59 Intake Total 1490 Balance 1490 Intake: Intake, IV Titration 1250 Amount Cefepime 2 gm In Sodium 200 Chloride 0.9% 100 ml @ 200 mls/hr IVPB Q8H [facility] Rx#:[id number] Sodium Chloride 0.9% 1, 800 000 ml @ 100 mls/hr IV . Q10H [facility] Rx#:[id number] Vancomycin 1,500 mg In 250 Sodium Chloride 0.9% 250 ml @ 125 mls/hr IVPB Q8H [facility] Rx#:[id number] Oral 240 Other: Voiding Method Toilet Toilet # Voids 1 3 Weight 103.4 kg Gen: This is a 64-year-old male. He is sitting up in bed and appears to be comfortable and in no acute distress. No respiratory distress noted. Patient is able to speak in full sentences. HEENT: Head is atraumatic, normocephalic. Pupils equal, round. Sclerae is anicteric. Oral mucous members are moist. No thrush noted. Dentition is in good order. NECK: Supple. No JVD. No lymphadenopathy. No thyromegaly. LUNGS: Diminished at the left base. No intercostal retractions. No accessory muscle usage. HEART: Regular rate and rhythm. No murmur. ABDOMEN: Soft. Bowel sounds are present. No masses. No tenderness. EXTREMITIES: No pedal edema. No calf tenderness. Dorsalis pedis +2 bilaterally. Patient has edema to the left hand secondary to IV fluids. IV to the right dorsal hand intact with no signs of infection. NEUROLOGICAL: Patient is awake, alert and oriented x3. Cranial nerves 2 through 12 are grossly intact. Results Results: Laboratory Results WBC 8.6 k/uL (3.8-10.6) 06/09/19 06:31 RBC 4.81 m/uL (4.30-5.90) 06/09/19 06:31 Hgb 13.7 gm/dL (13.0-17.5) 06/09/19 06:31 Hct 42.6 % (39.0-53.0) 06/09/19 06:31 MCV 88.6 fL (80.0-100.0) 06/09/19 06:31 MCH 28.5 pg (25.0-35.0) 06/09/19 06:31 MCHC 32.1 g/dL (31.0-37.0) 06/09/19 06:31 RDW 16.1 % (11.5-15.5) H 06/09/19 06:31 Plt Count 273 k/uL (150-450) 06/09/19 06:31 Neutrophils % 81 % 06/08/19 17:08 Lymphocytes % 10 % 06/08/19 17:08 Monocytes % 6 % 06/08/19 17:08 Eosinophils % 1 % 06/08/19 17:08 Basophils % 0 % 06/08/19 17:08 Neutrophils # 10.6 k/uL (1.3-7.7) H 06/08/19 17:08 Lymphocytes # 1.3 k/uL (1.0-4.8) 06/08/19 17:08 Monocytes # 0.8 k/uL (0-1.0) 06/08/19 17:08 Eosinophils # 0.2 k/uL (0-0.7) 06/08/19 17:08 Basophils # 0.0 k/uL (0-0.2) 06/08/19 17:08 Anisocytosis Slight 06/09/19 06:31 PT 10.5 sec (9.0-12.0) 06/08/19 17:08 INR 1.0 (<1.2) 06/08/19 17:08 APTT 23.7 sec (22.0-30.0) 06/08/19 17:08 Sodium 136 mmol/L (137-145) L 06/08/19 17:08 Potassium 4.4 mmol/L (3.5-5.1) 06/08/19 17:08 Chloride 105 mmol/L (98-107) 06/08/19 17:08 Carbon Dioxide 22 mmol/L (22-30) 06/08/19 17:08 Anion Gap 9 mmol/L 06/08/19 17:08 BUN 24 mg/dL (9-20) H 06/08/19 17:08 Creatinine 0.72 mg/dL (0.66-1.25) 06/08/19 17:08 Est GFR (CKD-EPI)AfAm >90 (>60 ml/min/1.73 sqM) 06/08/19 17:08 Est GFR (CKD-EPI)NonAf >90 (>60 ml/min/1.73 sqM) 06/08/19 17:08 Glucose 121 mg/dL (74-99) H 06/08/19 17:08 Lactic Ac Sepsis Rflx Y 06/09/19 20:50 Plasma Lactic Acid Son 1.6 mmol/L (0.7-2.0) 06/10/19 00:02 Calcium 9.0 mg/dL (8.4-10.2) 06/08/19 17:08 Total Bilirubin 0.9 mg/dL (0.2-1.3) 06/08/19 17:08 AST 17 U/L (17-59) 06/08/19 17:08 ALT 19 U/L (21-72) L 06/08/19 17:08 Alkaline Phosphatase 58 U/L (38-126) 06/08/19 17:08 Troponin I <0.012 ng/mL (0.000-0.034) 06/09/19 06:31 Total Protein 6.6 g/dL (6.3-8.2) 06/08/19 17:08 Albumin 4.0 g/dL (3.5-5.0) 06/08/19 17:08 CBC & Chem 7: 06/09/19 06:31 06/08/19 17:08 Labs: Abnormal Lab Results - Last 24 Hours (Table) 06/09/19 06/09/19 Range/Units 16:22 20:13 Plasma Lactic Acid Son 3.7 H* 2.5 H* (0.7-2.0) mmol/L Microbiology - Last 24 Hours (Table) 06/08/19 22:47 Blood Culture - Preliminary Blood No Growth after 24 hours 06/09/19 09:19 Gram Stain - Preliminary Sputum Assessment and Plan Plan: This is a 64-year-old male who presented to the hospital with sudden onset of left-sided pneumonia, possible gram-negative pneumonia. Sputum culture has been obtained, blood cultures no growth at 24 hours. Patient is on cefepime, Levaquin and vancomycin. Legionella and Mycoplasma testing will be added. There is a consult in place with Dr. Sauer. Continue supportive care. Further recommendations as patient progresses. The above dictated assessment and findings were discussed with Dr. Chicas. The impression and plan of care have been directed as dictated. Emi Payne nurse practitioner acting as scribe for Dr. Chicas.
[2019-06-10 09:02] LABS: Basophils % (A) 0 %; Eosinophils % (A) 0 %; HCT 41.7 % (39.0-53.0); HGB 13.6 gm/dL (13.0-17.5); Lymphocytes # (A) 0.8 k/uL (1.0-4.8); Lymphocytes % (A) 7 %; MCH 29.1 pg (25.0-35.0); MCHC 32.6 g/dL (31.0-37.0); MCV 89.2 fL (80.0-100.0); Mean Platelet Volume 6.4; Monocytes # (A) 0.6 k/uL (0-1.0); Monocytes % (A) 5 %; Neutrophils # (A) 9.3 k/uL (1.3-7.7); Neutrophils % (A) 86 %; Platelet Count 256 k/uL (150-450); RBC 4.67 m/uL (4.30-5.90); RDW 14.9 % (11.5-15.5); WBC 10.8 k/uL (3.8-10.6)
[2019-06-10 09:08] LABS: ALT 23 U/L (21-72); AST 12 U/L (17-59); African American GFR (CKD) >90 (>60 ml/min/1.73 sqM); Albumin 3.3 g/dL (3.5-5.0); Alkaline Phosphatase 49 U/L (38-126); Anion Gap 9 mmol/L; Blood Urea Nitrogen 24 mg/dL (9-20); Calcium 9.1 mg/dL (8.4-10.2); Carbon Dioxide 22 mmol/L (22-30); Chloride 110 mmol/L (98-107); Glucose 111 mg/dL (74-99); Non-African American GFR(CKD) >90 (>60 ml/min/1.73 sqM); Potassium 3.7 mmol/L (3.5-5.1); Sodium 141 mmol/L (137-145); Total Bilirubin 0.4 mg/dL (0.2-1.3); Total Protein 5.7 g/dL (6.3-8.2)
--- NOTE | 2019-06-10 13:14 | P.CNPUL ---
History of Present Illness Consult date: 06/10/19 Requesting physician: Brian gN Reason for consult: dyspnea, pneumonia, abnormal CXR/CT Chief complaint: acute pneumonia History of present illness: This is a 64-year-old white male patient with past medical history of stage II COPD with a baseline FEV1 of 2.14 L or 62% of predicted, former smoker, history of hypertension, esophageal cancer status post esophagectomy with gastric pull- through, history of obstructive sleep apnea resolved after 150 pound weight loss, anxiety, depression who was recently hospitalized at the end of April for acute community acquired pneumonia involving the left lung, was treated with antibiotics, improved, and discharged home. Apparently after discharge patient was doing well, he actually saw Dr. Alvares in follow-up on 06/02/2019, and a follow-up chest x-ray showed no acute pulmonary process, however last Saturday on 06/06/2019 patient started feeling ill, started having fevers, cough, he felt extremely tired, had some mild nausea, he was coughing and expectorating some dark-colored phlegm. He was having increased shortness of breath. Patient went to see Dr. Rivas, and a chest x-ray was completed showing extensive consolidation of the left mid lung. Patient was sent to the emergency department for evaluation, and was admitted for further treatment. Currently he is on cefepime, Levaquin and vancomycin. Admission lab work showed a white blood cell count of 8.6, hemoglobin of 13.7, platelet count of 273, coagulation profile was within normal limits, sodium was 136, potassium is 4.4, CO2 is 22, BUN was 24, creatinine was 0.72, patient had mild lactic acidosis of 3.7, was fluid resuscitated, with subsequent improvement of lactic acid down to 1.6, troponins were negative 2. On today's evaluation patient is afebrile, his puls e ox is 91% on 2 L, still coughing, and short of breath with activity, but no acute distress, denies chest pain, no altered mentation, he states he is feeling slightly better compared to his admission. Review of Systems All systems: negative Constitutional: Denies chills, Denies fever Eyes: denies blurred vision, denies pain Ears, nose, mouth and throat: Denies headache, Denies sore throat Cardiovascular: Denies chest pain, Denies shortness of breath Respiratory: Reports congestion, Reports dyspnea, Reports respiratory infection s, Denies cough Gastrointestinal: Denies abdominal pain, Denies diarrhea, Denies nausea, Denies vomiting Musculoskeletal: Denies myalgias Integumentary: Denies pruritus, Denies rash Neurological: Denies numbness, Denies weakness Psychiatric: Denies anxiety, Denies depression Endocrine: Denies fatigue, Denies weight change Past Medical History Past Medical History: Cancer, GERD/Reflux, Hypertension Additional Past Medical History / Comment(s): Neuropathy; esophageal cancer txed with surgery, past hx of sleep apnea and diabetes but none now after 150 pound weight loss, STATES falls easily, tremor History of Any Multi-Drug Resistant Organisms: None Reported Past Surgical History: Appendectomy, Hernia Repair, Joint Replacement, O rthopedic Surgery Additional Past Surgical History / Comment(s): LEFT ROTATOR CUFF.hilary. elbow, hilary wrist carpal tunnel, rt shoulder rotator cuff, rt knee arthroscopy, surgery for esophageal cancer (removed part of esophagus and removed part of stomach making it into carrot shaper per patient), rt knee replacement, hernia surgery x3 Past Anesthesia/Blood Transfusion Reactions: Previous Problems w/ Anesthesia Additional Past Anesthesia/Blood Transfusion Reaction / Comment(s): can not lay flat- "stomach acid will come out my nose" Past Psychological History: Anxiety, Depression Smoking Status: Former smoker Past Alcohol Use History: None Reported Additional Past Alcohol Use History / Comment(s): Patient was a smoker one pack per day for 10 years and quit ago 32 years ago. He lives at home with his . He is retired [employer] with exposure to asbestos. There is one cat, a Great Power and a Mountainh terrier in the home. Patient enjoys camping, bicycling, gardening and yard work. No recent travel outside of [place]. The patient has been camping in [place]. Past Drug Use History: None Reported - Past Family History Father Family Medical History: Cancer Additional Family Medical History / Comment(s): COLON Mother Family Medical History: Cancer, Deep Vein Thrombosis (DVT) Additional Family Medical History / Comment(s): brain aneurysm Medications and Allergies Home Medications Medication Instructions Recorded Confirmed Type Omeprazole 40 mg PO HS 04/26/17 06/08/19 History Aspirin [Adult Low Dose Aspirin EC] 81 mg PO DAILY 10/02/18 06/08/19 History cloNIDine HCL [Catapres] 0.1 mg PO BID 10/02/18 06/08/19 History Glycopyrrolate/Formoterol Fum 1 puff INHALATION RT-DAILY PRN 03/20/19 06/08/19 History [Bevespi Aerosphere Inhaler] Losartan Potassium 100 mg PO DAILY 03/20/19 06/08/19 History Vortioxetine Hydrobromide 5 mg PO DAILY 03/20/19 06/08/19 History [Trintellix] Primidone [Mysoline] 50 mg PO HS 05/12/19 06/08/19 History Famotidine [Pepcid] 20 mg PO BID 06/08/19 06/08/19 History Ipratropium-Albuterol Nebulize 3 ml INHALATION RT-QID 06/08/19 06/08/19 History [Duoneb 0.5 mg-3 mg/3 ml Soln] Omeprazole 20 mg PO AC-BID 06/08/19 06/08/19 History Allergies Allergy/AdvReac Type Severity Reaction Status Date / Time No Known Allergies Allergy Verified 06/08/19 18:43 Physical Exam Vitals: Vital Signs Temp Pulse Pulse Resp BP Pulse Ox 06/10/19 12:51 80 06/10/19 12:34 80 06/10/19 11:40 97.6 F 67 18 140/77 91 L 06/10/19 08:50 84 06/10/19 08:34 80 06/10/19 08:00 97.6 F 91 20 161/82 97 06/10/19 04:00 97.6 F 84 17 154/71 97 06/10/19 00:00 97.6 F 90 18 131/77 97 06/09/19 20:05 98.9 F 98 19 131/76 96 06/09/19 19:42 97 18 06/09/19 19:27 101 H 18 06/09/19 18:00 98.2 F 102 H 18 134/73 92 L 06/09/19 16:00 97.5 F L 101 H 18 152/79 94 L 06/09/19 15:38 98 18 06/09/19 15:25 100 18 94 L Intake and Output 06/09/19 06/10/19 06/10/19 22:59 06:59 14:59 Intake Total 1490 240 Balance 1490 240 Intake: Intake, IV Titration 1250 Amount Cefepime 2 gm In Sodium 200 Chloride 0.9% 100 ml @ 200 mls/hr IVPB Q8H [facility] Rx#:[id number] Sodium Chloride 0.9% 1, 800 000 ml @ 100 mls/hr IV . Q10H [facility] Rx#:[id number] Vancomycin 1,500 mg In 250 Sodium Chloride 0.9% 250 ml @ 125 mls/hr IVPB Q8H [facility] Rx#:[id number] Oral 240 240 Other: Voiding Method Toilet Toilet Toilet # Voids 1 3 Weight 103.4 kg GENERAL EXAM: Alert, pleasant, 64-year-old white male on 2 L of oxygen and the pulse ox of 91%, comfortable in no apparent distress. HEAD: Normocephalic/atraumatic. EYES: Normal reaction of pupils, equal size. Conjunctiva pink, sclera white. NOSE: Clear with pink turbinates. THROAT: No erythema or exudates. NECK: No masses, no JVD, no thyroid enlargement, no adenopathy. CHEST: No chest wall deformity. Symmetrical expansion. LUNGS: Equal air entry with bronchial sounds over right posterior lung, coarse is better crackles at bilateral bases, and left lower lobe and left mid lung CVS: Regular rate and rhythm, normal S1 and S2, no gallops, no murmurs, no rubs ABDOMEN: Soft, nontender. No hepatosplenomegaly, normal bowel sounds, no guarding or rigidity. EXTREMITIES: No clubbing, no edema, no cyanosis, 2+ pulses and upper and lower extremities. MUSCULOSKELETAL: Muscle strength and tone normal. SPINE: No scoliosis or deformity SKIN: No rashes CENTRAL NERVOUS SYSTEM: Alert and oriented -3. No focal deficits, tone is normal in all 4 extremities. PSYCHIATRIC: Alert and oriented -3. Appropriate affect. Intact judgment and insight. Results - Laboratory Findings CBC and BMP: 06/10/19 08:40 06/10/19 08:40 PT/INR, D-dimer PT 10.5 sec (9.0-12.0) 06/08/19 17:08 INR 1.0 (<1.2) 06/08/19 17:08 Abnormal lab findings: Abnormal Labs 06/08/19 06/08/19 06/09/19 17:08 17:08 06:31 WBC 13.1 H RDW 15.9 H 16.1 H Neutrophils # 10.6 H Lymphocytes # Sodium 136 L Chloride BUN 24 H Glucose 121 H Plasma Lactic Acid Son AST ALT 19 L Total Protein Albumin 06/09/19 06/09/19 06/10/19 16:22 20:13 08:40 WBC 10.8 H RDW Neutrophils # 9.3 H Lymphocytes # 0.8 L Sodium Chloride BUN Glucose Plasma Lactic Acid Son 3.7 H* 2.5 H* AST ALT Total Protein Albumin 06/10/19 08:40 WBC RDW Neutrophils # Lymphocytes # Sodium Chloride 110 H BUN 24 H Glucose 111 H Plasma Lactic Acid Son AST 12 L ALT Total Protein 5.7 L Albumin 3.3 L - Diagnostic Findings Chest x-ray: report reviewed, image reviewed Additional studies: EKG reviewed Assessment and Plan Plan: Assessment: #1. Acute left mid lung pneumonia, possibly aspiration related considering p jessika's history of esophagectomy with gastric pull-through #2. Lactic acidosis related to sepsis related to pneumonia #3. Recent history of left mid lung pneumonia, thought to be community acquir ed, treated with antibiotics, and patient had clinical and radiographic improvement and was doing well with chest x-ray showing complete resolution on 06/02/2019 follow-up chest x-ray #4. History of esophageal cancer with history of surgical resection and gastric pull-through #5. GERD/reflux #6. Stage II COPD, with a baseline FEV1 of 62% of predicted not on home oxygen #7. Former smoker, quit 35 years ago, carries 25 years of smoking half a pack to 1 pack a day #8. Past history of sleep apnea not currently requiring CPAP related to large weight loss Plan: Continue current plan of treatment, antibiotics per ID service recommendations, sputum culture. Chest x-ray has been reviewed, showing extensive consolidation involving the left mid lung. Consider aspiration pneumonia related to patient's history of gastric pull-through. Continue nebulized bronchodilators, Symbicort, GI and DVT prophylaxis, will follow I performed a history & physical examination of the patient and discussed their management with my nurse practitioner, Precious Hughes. I reviewed the nurse practitioner's note and agree with the documented findings and plan of care. Lung sounds are bronchial sounds on the right with diffuse crackles at the bases bilaterally and at the left midlung and left lower lung area. The findings and the impression was discussed with the patient. I attest to the documentation by the nurse practitioner. Time with Patient: Greater than 30
[2019-06-10] MEDS: LEVOFLOXACIN 750 MG TAB PO SCH (16:46)
--- NOTE | 2019-06-10 16:52 | P.PN ---
Subjective Progress Note Date: 06/10/19 Principal diagnosis: Pneumonia Patient was seen and examined. No acute events overnight. Patient reports considerable improvement in his breathing since yesterday. Able to take a shower without difficulty today. Sitting up in bed playing cards with his comfortably. He denies any chest pain or palpitations. No nausea or vomiting. No fever or chills. He does report episodes of coughing and choking with food related to his esophagectomy with gastric pull-through. Objective - Vital Signs Vital signs: Vital Signs Temp 97.6 F 06/10/19 15:37 Pulse 80 06/10/19 15:37 Resp 20 06/10/19 15:37 BP 149/89 06/10/19 15:37 Pulse Ox 92 L 06/10/19 15:37 Intake & Output 06/09/19 06/10/19 06/10/19 18:59 06:59 18:59 Intake Total 1490 830 Output Total 800 Balance 1490 30 Weight 103.4 kg Intake: Intake, IV Titration 1250 350 Amount Cefepime 2 gm In Sodium 200 100 Chloride 0.9% 100 ml @ 200 mls/hr IVPB Q8H [facility] Rx#:[id number] Sodium Chloride 0.9% 1, 800 000 ml @ 100 mls/hr IV . Q10H [facility] Rx#:[id number] Vancomycin 1,500 mg In 250 250 Sodium Chloride 0.9% 250 ml @ 125 mls/hr IVPB Q8H [facility] Rx#:[id number] Oral 240 480 Output: Urine 800 Other: Voiding Method Toilet Toilet Toilet # Voids 1 3 - Exam General: [non toxic], [no distress], [appears at stated age] Derm: [warm], [dry] Head: [atraumatic], [normocephalic], [symmetric] Eyes: [EOMI], [no lid lag], [anicteric sclera] Mouth: [no lip lesion], [mucus membranes moist] Cardiovascular: [S1S2 reg], [no murmur], [positive DP pulse bilateral] Lungs: [CTA bilateral], [rhonchi bilaterally with crackles] , [no accessory muscle use] Abdominal: [soft], [ nontender to palpation], [no guarding], [no appreciable organomegaly] Ext: [no gross muscle atrophy], [no edema], [no contractures] Neuro: [no focal neuro deficits] Psych: [Alert], [oriented], [appropriate affect] - Labs CBC & Chem 7: 06/10/19 08:40 06/10/19 08:40 Labs: Abnormal Lab Results - Last 24 Hours (Table) 06/09/19 06/09/19 06/10/19 Range/Units 16:22 20:13 08:40 WBC 10.8 H (3.8-10.6) k/uL Neutrophils # 9.3 H (1.3-7.7) k/uL Lymphocytes # 0.8 L (1.0-4.8) k/uL Chloride (98-107) mmol/L BUN (9-20) mg/dL Glucose (74-99) mg/dL Plasma Lactic Acid Son 3.7 H* 2.5 H* (0.7-2.0) mmol/L AST (17-59) U/L Total Protein (6.3-8.2) g/dL Albumin (3.5-5.0) g/dL 06/10/19 Range/Units 08:40 WBC (3.8-10.6) k/uL Neutrophils # (1.3-7.7) k/uL Lymphocytes # (1.0-4.8) k/uL Chloride 110 H (98-107) mmol/L BUN 24 H (9-20) mg/dL Glucose 111 H (74-99) mg/dL Plasma Lactic Acid Son (0.7-2.0) mmol/L AST 12 L (17-59) U/L Total Protein 5.7 L (6.3-8.2) g/dL Albumin 3.3 L (3.5-5.0) g/dL Microbiology - Last 24 Hours (Table) 06/08/19 22:47 Blood Culture - Preliminary Blood No Growth after 24 hours 06/09/19 09:19 Gram Stain - Preliminary Sputum Assessment and Plan Assessment: Assessment and Plan Sepsis related to hospital-acquired pneumonia Lactic acidosis Elevated BUN COPD without exacerbation Seizure disorder Hypertension Patient initially met sepsis criteria. Leukocytosis of 13.1-10.8. Pulse greater than 90. Respiratory rate of 22. Chest x-ray shows persistent and improving lateral left midlung acute infiltrate. Lactic acid 3.7. Plans: Start vancomycin, cefepime and levofloxacin for concerns of hospital-acquired pneumonia. Optimize COPD medications. O2 per NC to maintain O2 saturation greater than 92%. Follow pulmonology consultation. Follow sputum culture. Follow blood culture. Follow swallow eval. Lactic acid 3.7-1.6. Likely related to sepsis and dehydration. Bolused 1 L yesterday. Plans: Continue normal saline at 100 mL per hour. Lactic acid was within normal limits today. BUN 24. Creatinine within normal limits. Likely due to dehydration. Plans: Encourage hydration by mouth. Continue normal saline at 100 mL/h. Repeat BMP tomorrow morning. Plans: DuoNeb scheduled and as needed for shortness of breath and wheezing. Continue Symbicort. Plans: Seizure precautions. BP 149/89. Plans: Continue losartan and clonidine. Monitor vitals, adjust medications as necessary. [Patient admitted for hospital-acquired pneumonia. Pulmonology and ID has been consulted. He is pending clinical improvement And cultures are pending. Likely DC in 2-3 days.]
[2019-06-10] MEDS: PRIMIDONE 50 MG TAB PO SCH (20:26)
--- NOTE | 2019-06-10 22:19 | P.CON ---
Consult Note - . Consult date: 06/10/19 Assessment/Plan:: This is a 64-year-old male with past history significant for COPD with recent admission for pneumonia May 13 through May 15. The patient was discharged on Levaquin which she completed as well as prednisone taper and nebulizer. Patient states he had a follow-up appointment Dr. Mckenzie last as chest x-ray was done and he was told it was completely clear. On Saturday he was camping and he started feeling ill. He complains of cough with sputum production, fever, chest pain. He states he slept all day on Saturday.Patient went to see his primary care physician and was told to come into the hospital for evaluation and admission. The patient has been afebrile, white count 13.1, initial lactic acid 3. 7 repeat of 1.7. Blood cultures no growth at 24 hours and sputum culture status received. Chest x-ray showed persistent but improving lateral left mid lung acute infiltrate or atelectasis. Patient was given IV fluids, Rocephin, Solu-Medrol [facility] Patient is currently on cefepime, Levaquin and vancomycin. Patient states that his breathing is much improved, chest pain has resolved. He denies having any fevers. Patient does give history of having asbestos exposure when he was working as a [employer] which he is currently retired. Patient smoked remotely for 10 years ago with 32 years ago. The patient did receive his pneumonia vaccine. He did not receive influenza vaccine last year. Patient does have history of esophageal cancer status post resection 9 years ago without recurrence and peripheral neuropathy of unclear etiology, worked up at [facility]. Please see the consult note is dictated by nurse practitioner Emi Kerry. 64-year-old male with a history of esophageal cancer status post gastric pull- through 9 years ago and has done relatively well except for difficulties with his COPD and multiple bouts of pneumonia. As related he had pneumonia was treated was hospitalized and had another bout and was followed in the pulmonary office. Last chest x-ray the outpatient setting showed resolution of his pneumonia. He then over the weekend developed the sudden onset of fever and shortness of breath presents to Hospital with evidence of the recurrent pneumonia. At this time is being treated with steroid therapy as well as antibiotic therapy with cefepime, Levaquin and vancomycin. Workup for atypical pathogens such as Legionella and mycoplasma are being done especially since he does have some exposure to the outdoors while he was camping. A videoscopic swallow study has been requested, with concerns to potential silent aspiration occurring related to his history of prior esophageal surgery. He may need to have endoscopy also to further evaluate the esophagus. Leukocytosis, fever and chills. Correctly related to this current pneumonia. Cultures are in process to hopefully further direct antimicrobial therapy. Fortunately he is starting to feel somewhat better which may be partly attributed to the Solu-Medrol that he is receiving. I evaluation, assessment and plan as dictated by nurse practitioner Mrs. Emi Payne.
[2019-06-11] MEDS: CEFEPIME 2 GM in SODIUM CHLORIDE 0.9% 100 ML IVPB SCH ×3 (02:12→18:05)
[2019-06-11] MEDS ORDERED: VANCOMYCIN TROUGH DUE 1 EACH MISC MISCELLANE ONE (05:00)
[2019-06-11] MEDS: VANCOMYCIN 1,500 MG in SODIUM CHLORIDE 0.9% 250 ML IVPB SCH ×3 (05:40→21:20)
[2019-06-11] MEDS: SYMBICORT 160-4.5 MCG INHALER INHALATION SCH ×2 (07:57→20:33)
[2019-06-11] MEDS: IPRATROPIUM-ALBUTEROL 3 ML NEB INHALATION SCH ×4 (07:57→20:33)
[2019-06-11] MEDS: HEPARIN SODIUM,PORCINE 5,000 UNIT/ML 1 ML VIAL SQ SCH ×3 (09:21→23:34)
[2019-06-11] MEDS: FAMOTIDINE 20 MG TAB PO SCH ×2 (09:22→21:20)
[2019-06-11] MEDS: cloNIDine HCL 0.1 MG TAB PO SCH ×2 (09:22→21:20)
[2019-06-11] MEDS: ASPIRIN 81 MG PO SCH (09:22)
[2019-06-11] MEDS: VORTIOXETINE HYDROBROMIDE 10 MG TABLET PO SCH (09:22)
[2019-06-11] MEDS: LOSARTAN 50 MG TAB PO SCH (09:22)
[2019-06-11 11:45] VITALS: TEMP 97.6
--- NOTE | 2019-06-11 12:28 | XR ---
EXAMINATION TYPE: XR chest 2V DATE OF EXAM: 06/11/2019 COMPARISON: Prior chest x-ray dated 06/09/[address] 05/12/2019 HISTORY: Pneumonia TECHNIQUE: Frontal and lateral views of the chest are obtained. FINDINGS: Patient's gastric pull-through changes are present. Question some perihilar airspace disea se on the left. No evident pneumothorax. Deformity of the right fifth rib is chronic. Retained contra st present within the stomach. IMPRESSION: Postprocedural changes. Correlate for pneumonia. Consider aspiration.
--- NOTE | 2019-06-11 12:44 | P.PN ---
Subjective Progress Note Date: 06/11/19 Principal diagnosis: Acute pneumonia This is a 64-year-old white male patient with past medical history of stage II COPD with a baseline FEV1 of 2.14 L or 62% of predicted, former smoker, history of hypertension, esophageal cancer status post esophagectomy with gastric pull-through, history of obstructive sleep apnea resolved after 150 pound weight loss, anxiety, depression who was recently hospitalized at the end of April for acute community acquired pneumonia involving the left lung, was treated with antibiotics, improved, and discharged home. Apparently after discharge patient was doing well, he actually saw Dr. Alvares in follow-up on 06/02/2019, and a follow-up chest x-ray showed no acute pulmonary process, however last Saturday on 06/06/2019 patient started feeling ill, started having fevers, cough, he felt extremely tired, had some mild nausea, he was coughing and expectorating some dark-colored phlegm. He was having increased shortness of breath. Patient went to see Dr. Rivas, and a chest x-ray was completed showing extensive consolidation of the left mid lung. Patient was sent to the emergency department for evaluation, and was admitted for further treatment. Currently he is on cefepime, Levaquin and vancomycin. Admission lab work showed a white blood cell count of 8.6, hemoglobin of 13.7, platelet count of 273, coagulation profile was within normal limits, sodium was 136, potassium is 4.4, CO2 is 22, BUN was 24, creatinine was 0.72, patient had mild lactic acidosis of 3.7, was fluid resuscitated, with subsequent improvement of lactic acid down to 1.6, troponins were negative 2. On today's evaluation patient is afebrile, his pulse ox is 91% on 2 L, still coughing, and short of breath with activity, but no acute distress, denies chest pain, no altered mentation, he states he is feeling slightly better compared to his admission. On 06/11/2019 patient seen in follow-up on selective care unit, he is up and ambulating, tolerating activity very well, denies any dyspnea, denies any chest pain, no cough, no phlegm production. He has been afebrile since admission, room air pulse ox is 94%, lung sounds are positive for respiratory crackles at bilateral bases, no rhonchi, no wheezing. Patient is currently on combination of cefepime, Levaquin and vancomycin, ID service is following, blood and sputum cultures showed no growth. No new labs today. Follow-up chest x-ray showed relatively stable findings with left mid lung airspace disease, perihilar airspace disease on the left, changes of gastric pull-through are present. Cl inically patient remains stable, he is scheduled for him swallow today. Objective - Vital Signs Vital signs: Vital Signs Temp 97.6 F 06/11/19 11:44 Pulse 74 06/11/19 12:36 Resp 18 06/11/19 11:44 BP 163/79 06/11/19 11:44 Pulse Ox 94 L 06/11/19 11:44 Intake & Output 06/10/19 06/11/19 06/11/19 18:59 06:59 18:59 Intake Total 1310 Output Total 800 Balance 510 Weight 102.4 kg Intake: Intake, IV Titration 350 Amount Cefepime 2 gm In Sodium 100 Chloride 0.9% 100 ml @ 200 mls/hr IVPB Q8H [facility] Rx#:[id number] Vancomycin 1,500 mg In 250 Sodium Chloride 0.9% 250 ml @ 125 mls/hr IVPB Q8H [facility] Rx#:[id number] Oral 960 Output: Urine 800 Other: Voiding Method Toilet Toilet Toilet - Exam GENERAL EXAM: Alert, pleasant, 64-year-old white male on room air with a pulse ox of 94%, comfortable in no apparent distress. HEAD: Normocephalic/atraumatic. EYES: Normal reaction of pupils, equal size. Conjunctiva pink, sclera white. NOSE: Clear with pink turbinates. THROAT: No erythema or exudates. NECK: No masses, no JVD, no thyroid enlargement, no adenopathy. CHEST: No chest wall deformity. Symmetrical expansion. LUNGS: Equal air entry with bronchial sounds over right posterior lung, coarse is better crackles at bilateral bases, and left lower lobe and left mid lung CVS: Regular rate and rhythm, normal S1 and S2, no gallops, no murmurs, no rubs ABDOMEN: Soft, nontender. No hepatosplenomegaly, normal bowel sounds, no guarding or rigidity. EXTREMITIES: No clubbing, no edema, no cyanosis, 2+ pulses and upper and lower extremities. MUSCULOSKELETAL: Muscle strength and tone normal. SPINE: No scoliosis or deformity SKIN: No rashes CENTRAL NERVOUS SYSTEM: Alert and oriented -3. No focal deficits, tone is normal in all 4 extremities. PSYCHIATRIC: Alert and oriented -3. Appropriate affect. Intact judgment and insight. - Labs CBC & Chem 7: 06/10/19 08:40 06/10/19 08:40 Labs: Microbiology - Last 24 Hours (Table) 06/09/19 09:19 Gram Stain - Final Sputum Sputum Culture - Final 06/08/19 22:47 Blood Culture - Preliminary Blood No Growth after 48 hours Assessment and Plan Plan: Assessment: #1. Acute left mid lung pneumonia, possibly aspiration related considering patient's history of esophagectomy with gastric pull-through #2. Lactic acidosis related to sepsis related to pneumonia #3. Recent history of left mid lung pneumonia, thought to be community acquired, treated with antibiotics, and patient had clinical and radiographic improvement and was doing well with chest x-ray showing complete resolution on 06/02/2019 follow-up chest x-ray #4. History of esophageal cancer with history of surgical resection and gastric pull-through #5. GERD/reflux #6. Stage II COPD, with a baseline FEV1 of 62% of predicted not on home oxygen #7. Former smoker, quit 35 years ago, carries 25 years of smoking half a pack to 1 pack a day #8. Past history of sleep apnea not currently requiring CPAP related to large weight loss Plan: Continue antibiotic coverage per ID service recommendations, sputum and blood c ultures remain negative thus far, clinically patient denies any acute distress, he is tolerating ambulation, he is maintaining good oxygenation on room air, he is afebrile, no worsening dyspnea, no cough or phlegm production. Leukocytosis is down trending, modified barium swallow is pending, will review the results once those are available, today's follow-up chest x-ray shows stable findings with the left perihilar airspace disease and a gastric pull-through on the right. Continue bronchodilators. We'll continue to follow. I performed a history & physical examination of the patient and discussed their management with my nurse practitioner, Precious Hughes. I reviewed the nurse practitioner's note and agree with the documented findings and plan of care. Lung sounds are bronchial sounds on the right with diffuse crackles at the bases bilaterally and at the left midlung and left lower lung area. The findings and the impression was discussed with the patient. I attest to the documentation by the nurse practitioner. Time with Patient: Less than 30
--- NOTE | 2019-06-11 13:25 | P.PN ---
Subjective Progress Note Date: 06/11/19 Principal diagnosis: pneumonia recurrent Patient was seen and examined. No acute events overnight. Patient reports feeling very fatigued today. He denies any chest pain, shortness of breath or palpitations. States that his breathing is actually getting better. No nausea or vomiting. No fever or chills. Objective - Vital Signs Vital signs: Vital Signs Temp 97.6 F 06/11/19 11:44 Pulse 74 06/11/19 12:36 Resp 18 06/11/19 11:44 BP 163/79 06/11/19 11:44 Pulse Ox 94 L 06/11/19 11:44 Intake & Output 06/10/19 06/11/19 06/11/19 18:59 06:59 18:59 Intake Total 1310 Output Total 800 Balance 510 Weight 102.4 kg Intake: Intake, IV Titration 350 Amount Cefepime 2 gm In Sodium 100 Chloride 0.9% 100 ml @ 200 mls/hr IVPB Q8H [facility] Rx#:[id number] Vancomycin 1,500 mg In 250 Sodium Chloride 0.9% 250 ml @ 125 mls/hr IVPB Q8H [facility] Rx#:[id number] Oral 960 Output: Urine 800 Other: Voiding Method Toilet Toilet Toilet - Exam General: [non toxic], [no distress], [appears at stated age] Derm: [warm], [dry] Head: [atraumatic], [normocephalic], [symmetric] Eyes: [EOMI], [no lid lag], [anicteric sclera] Mouth: [no lip lesion], [mucus membranes moist] Cardiovascular: [S1S2 reg], [no murmur], [positive DP pulse bilateral] Lungs: [CTA bilateral], [scattered rhonchi, improved] , [no accessory muscle use] Abdominal: [soft], [ nontender to palpation], [no guarding], [no appreciable organomegaly] Ext: [no gross muscle atrophy], [no edema], [no contractures] Neuro: [no focal neuro deficits] Psych: [Alert], [oriented], [appropriate affect] - Labs CBC & Chem 7: 06/10/19 08:40 06/10/19 08:40 Labs: Microbiology - Last 24 Hours (Table) 06/09/19 09:19 Gram Stain - Final Sputum Sputum Culture - Final 06/08/19 22:47 Blood Culture - Preliminary Blood No Growth after 48 hours Assessment and Plan Assessment: Assessment and Plan Sepsis related to hospital-acquired pneumonia History of esophageal cancer Lactic acidosis Elevated BUN COPD without exacerbation Seizure disorder Hypertension Patient initially met sepsis criteria. Leukocytosis of 13.1-10.8. Pulse greater than 90. Respiratory rate of 22. Chest x-ray shows persistent and improving lateral left midlung acute infiltrate. Lactic acid 3.7. Plans: Continue vancomycin, cefepime and levofloxacin for concerns of hospital-acquired pneumonia. Optimize COPD medications. O2 per NC to maintain O2 saturation greater than 92%. Follow pulmonology and ID consultation. Follow sputum culture. Follow blood culture. Follow Legionella and Mycoplasma. Patient reports surgical removal about 9 years ago with no follow-up. Plans: Follow swallow eval. Barium swallow ordered. Will order CT chest to rule out underlying mass. Lactic acid 3.7-1.6. Likely related to sepsis and dehydration. Bolused 1 L yesterday. Plans: Decrease IVF from 100 mL NS to 50 mL an hour.. Lactic acid was within normal limits. BUN 24. Creatinine within normal limits. Likely due to dehydration. Plans: Encourage hydration by mouth. Continue normal saline at 100 mL/h. Repeat BMP tomorrow morning. Plans: DuoNeb scheduled and as needed for shortness of breath and wheezing. Continue Symbicort. Plans: Seizure precautions. BP 163/79. Plans: Continue losartan and clonidine. Monitor vitals, adjust medications as necessary. [Patient admitted for hospital-acquired pneumonia. Pulmonology and ID has been consulted. He is pending clinical improvement And cultures are pending. Follow barium swallow and CT chest (h/o esophageal CA). Likely DC in 2-3 days.]
--- NOTE | 2019-06-11 13:41 | FL ---
EXAMINATION TYPE: FL barium swallow w video DATE OF EXAM: 06/11/2019 COMPARISON: NONE HISTORY: 2 episodes of pneumonia within the month, history of esophageal cancer. TECHNIQUE: Fluoroscopy. FINDINGS: Fluoroscopic guidance was provided for the procedure performed in conjunction with the [facility] pathology department. Please see complete report forthcoming from the Speech Pathology departmen t. Various consistencies from thin liquid to solids were administered. Fluoroscopy time not recorded seconds. Number of images: 0. No aspiration or penetration was evident. No significant pooling was observed in the vallecula. There was normal propulsion of the bolus. IMPRESSION: 1. Normal modified barium swallow
--- NOTE | 2019-06-11 14:13 | CT ---
EXAMINATION TYPE: CT chest wo con DATE OF EXAM: 06/11/2019 COMPARISON: Chest CTA May 12, 2019 [address] older [address]s. Chest x-ray earlier today. HISTORY: Lobar Pneumonia CT DLP: 623.4 mGycm. Automated Exposure Control for Dose Reduction was Utilized. TECHNIQUE: CT scan of the thorax is performed without IV contrast. FINDINGS: LUNGS: There is confirmation of left hilar groundglass opacity with areas of irregular consolidation most prominent involving the inferior aspect of the left upper lobe, there is some lingular involveme nt. Right lung is predominantly clear. Consolidation or atelectasis along gastric pull-up redemonstra manuel. No pleural effusion or pneumothorax is evident bilaterally. MEDIASTINUM: Lack of IV contrast is noted to limit evaluation for mediastinal and especially hilar ad enopathy. There are no definitive greater than 1 cm hilar or mediastinal lymph nodes. No cardiomega ly or pericardial effusion is seen. Coronary calcification is redemonstrated which is noted marked of underlying coronary artery disease. Debris-filled gastric pull-up redemonstrated slightly more promi nent from most recent prior CT. OTHER: Some contrast filled bowel loops in the visualized upper abdomen are present. There is ventral wall hernia with possible overlying mesh partially imaged axial image 74. IMPRESSION: Confirmation of left hilar predominantly left upper lobe pneumonia.
[2019-06-11] MEDS: SODIUM CHLORIDE 0.9% 1,000 ML IV SCH ×2 (14:46→21:20)
[2019-06-11] MEDS: LEVOFLOXACIN 750 MG TAB PO SCH (18:05)
[2019-06-11] MEDS: PRIMIDONE 50 MG TAB PO SCH (21:20)
[2019-06-12] MEDS: CEFEPIME 2 GM in SODIUM CHLORIDE 0.9% 100 ML IVPB SCH ×2 (04:14→09:03)
[2019-06-12 06:40] LABS: Mycoplasma IgG Antibody (EIA) 0.62 INDEX (<=0.90); Mycoplasma IgM Antibody 0.24 INDEX (<=0.90)
[2019-06-12] MEDS: VANCOMYCIN 1,500 MG in SODIUM CHLORIDE 0.9% 250 ML IVPB SCH ×2 (06:44→14:56)
[2019-06-12 06:54] LABS: Basophils % (A) 0 %; Eosinophils # (A) 0.1 k/uL (0-0.7); Eosinophils % (A) 1 %; HCT 42.2 % (39.0-53.0); HGB 13.6 gm/dL (13.0-17.5); Lymphocytes # (A) 1.1 k/uL (1.0-4.8); Lymphocytes % (A) 14 %; MCH 28.1 pg (25.0-35.0); MCHC 32.2 g/dL (31.0-37.0); MCV 87.3 fL (80.0-100.0); Mean Platelet Volume 6.2; Monocytes # (A) 0.4 k/uL (0-1.0); Monocytes % (A) 5 %; Neutrophils # (A) 6.4 k/uL (1.3-7.7); Neutrophils % (A) 78 %; Platelet Count 254 k/uL (150-450); RBC 4.83 m/uL (4.30-5.90); RDW 14.6 % (11.5-15.5); WBC 8.2 k/uL (3.8-10.6)
[2019-06-12 07:20] LABS: ALT 21 U/L (21-72); AST 14 U/L (17-59); African American GFR (CKD) >90 (>60 ml/min/1.73 sqM); Albumin 3.5 g/dL (3.5-5.0); Alkaline Phosphatase 57 U/L (38-126); Anion Gap 8 mmol/L; Blood Urea Nitrogen 14 mg/dL (9-20); Calcium 9.3 mg/dL (8.4-10.2); Carbon Dioxide 27 mmol/L (22-30); Chloride 104 mmol/L (98-107); Glucose 94 mg/dL (74-99); Non-African American GFR(CKD) >90 (>60 ml/min/1.73 sqM); Potassium 4.1 mmol/L (3.5-5.1); Sodium 139 mmol/L (137-145); Total Bilirubin 0.6 mg/dL (0.2-1.3); Total Protein 5.9 g/dL (6.3-8.2)
[2019-06-12] MEDS: VORTIOXETINE HYDROBROMIDE 10 MG TABLET PO SCH (08:49)
[2019-06-12] MEDS: cloNIDine HCL 0.1 MG TAB PO SCH (08:49)
[2019-06-12] MEDS: FAMOTIDINE 20 MG TAB PO SCH (08:49)
[2019-06-12] MEDS: HEPARIN SODIUM,PORCINE 5,000 UNIT/ML 1 ML VIAL SQ SCH (08:49)
[2019-06-12] MEDS: ASPIRIN 81 MG PO SCH (08:49)
[2019-06-12] MEDS: LOSARTAN 50 MG TAB PO SCH (08:49)
[2019-06-12] MEDS: SYMBICORT 160-4.5 MCG INHALER INHALATION SCH (08:56)
[2019-06-12] MEDS: IPRATROPIUM-ALBUTEROL 3 ML NEB INHALATION SCH ×3 (08:56→16:51)
[2019-06-12 09:34] VITALS: RESP 20
--- NOTE | 2019-06-12 10:52 | P.PN ---
Subjective Progress Note Date: 06/12/19 Principal diagnosis: Acute left mid to upper lobe pneumonia, community-acquired. This is a 64-year-old white male patient with past medical history of stage II COPD with a baseline FEV1 of 2.14 L or 62% of predicted, former smoker, history of hypertension, esophageal cancer status post esophagectomy with gastric pull- through, history of obstructive sleep apnea resolved after 150 pound weight loss, anxiety, depression who was recently hospitalized at the end of April for acute community acquired pneumonia involving the left lung, was treated with antibiotics, improved, and discharged home. Apparently after discharge patient was doing well, he actually saw Dr. Alvares in follow-up on 06/02/2019, and a follow-up chest x-ray showed no acute pulmonary process, however last Saturday on 06/06/2019 patient started feeling ill, started having fevers, cough, he felt extremely tired, had some mild nausea, he was coughing and expectorating some dark-colored phlegm. He was having increased shortness of breath. Patient went to see Dr. Rivas, and a chest x-ray was completed showing extensive consolidation of the left mid lung. [facility], and was admitted for further treatment. Currently he is on cefepime, Levaquin and vancomycin. Admission lab work showed a white blood cell count of 8.6, hemoglobin of 13.7, platelet count of 273, coagulation profile was within normal limits, sodium was 136, potassium is 4.4, CO2 is 22, BUN was 24, creatinine was 0.72, patient had mild lactic acidosis of 3.7, was fluid resuscitated, with subsequent improvement of lactic acid down to 1.6, troponins were negative 2. On today's evaluation patient is afebrile, his pulse ox is 91% on 2 L, still coughing, and short of breath with activity, but no acute distress, denies chest pain, no altered mentation, he states he is feeling slightly better compared to his admission. On 06/11/2019 patient seen in follow-up on [facility] care unit, he is up and ambulating, tolerating activity very well, denies any dyspnea, denies any chest pain, no cough, no phlegm production. He has been afebrile since admission, room air pulse ox is 94%, lung sounds are positive for respiratory crackles at bilateral bases, no rhonchi, no wheezing. Patient is currently on combination of cefepime, Levaquin and vancomycin, ID service is following, blood and sputum cultures showed no growth. No new labs today. Follow-up chest x-ray showed relatively stable findings with left mid lung airspace disease, perihilar airspace disease on the left, changes of gastric pull-through are present. Clinically patient remains stable, he is scheduled for him swallow today. The patient is seen today 06/12/2019 in follow-up on the selective care unit. He is currently sitting up in a chair at the bedside. Awake and alert in no acute distress. He is maintaining good O2 saturations in the 90s on room air. He's been afebrile. Hemodynamically stable. His breathing is back to his baseline. No worsening shortness of breath, cough or congestion. Computed tomography scan of the chest revealed predominantly left upper lobe pneumonia. Sputum culture reveals no growth. Blood cultures reveal no growth. White count 8.2. Hemoglobin 13.6. Creatinine 0.74. He has been maintained on vancomycin, Levaquin, cefepime. Objective - Vital Signs Vital signs: Vital Signs Temp 97.6 F 06/12/19 08:00 Pulse 72 06/12/19 09:10 Resp 20 06/12/19 08:00 BP 152/77 06/12/19 08:00 Pulse Ox 96 06/12/19 08:00 Intake & Output 06/11/19 06/12/19 06/12/19 18:59 06:59 18:59 Intake Total 1602 600 Output Total 600 Balance 1602 -600 600 Weight 101.8 kg Intake: Intake, IV Titration 1150 Amount Cefepime 2 gm In Sodium 100 Chloride 0.9% 100 ml @ 200 mls/hr IVPB Q8H [facility] Rx#:[id number] Sodium Chloride 0.9% 1, 800 000 ml @ 50 mls/hr IV . Q20H [facility] Rx#:[id number] Vancomycin 1,500 mg In 250 Sodium Chloride 0.9% 250 ml @ 125 mls/hr IVPB Q8H [facility] Rx#:[id number] Oral 452 600 Output: Urine 600 Other: Voiding Method Toilet Toilet # Voids 4 1 - Exam GENERAL EXAM: Alert, pleasant 64-year-old gentleman, active, comfortable in no apparent distress. On room air. HEAD: Normocephalic. EYES: Normal reaction of pupils, equal size. NOSE: Clear with pink turbinates. THROAT: No erythema or exudates. NECK: No masses, no JVD. CHEST: No chest wall deformity. LUNGS: Equal air entry with few scattered rhonchi in the left lung, no wheeze, crackles or dullness. CVS: S1 and S2 normal with no audible murmur, regular rhythm. ABDOMEN: No hepatosplenomegaly, normal bowel sounds, no guarding or rigidity. SPINE: No scoliosis or deformity SKIN: No rashes CENTRAL NERVOUS SYSTEM: No focal deficits, tone is normal in all 4 extremities. EXTREMITIES: There is no peripheral edema. No clubbing, no cyanosis. Peripheral pulses are intact. - Labs CBC & Chem 7: 06/12/19 06:32 06/12/19 06:32 Labs: Abnormal Lab Results - Last 24 Hours (Table) 06/12/19 Range/Units 06:32 AST 14 L (17-59) U/L Total Protein 5.9 L (6.3-8.2) g/dL Microbiology - Last 24 Hours (Table) 06/08/19 22:47 Blood Culture - Preliminary Blood No Growth after 72 hours 06/09/19 09:19 Gram Stain - Final Sputum Sputum Culture - Final Assessment and Plan Assessment: Assessment: #1. Acute left mid lung pneumonia, possibly aspiration related considering patient's history of esophagectomy with gastric pull-through #2. Lactic acidosis related to sepsis related to pneumonia #3. Recent history of left mid lung pneumonia, thought to be community acquired, treated with antibiotics, and patient had clinical and radiographic improvement and was doing well with chest x-ray showing complete resolution on 06/02/2019 follow-up chest x-ray #4. History of esophageal cancer with history of surgical resection and gastric pull-through #5. GERD/reflux #6. Stage II COPD, with a baseline FEV1 of 62% of predicted not on home oxygen #7. Former smoker, quit 35 years ago, carries 25 years of smoking half a pack to 1 pack a day #8. Past history of sleep apnea not currently requiring CPAP related to large weight loss Plan: The patient was seen and evaluated by Dr. Sauer. He is cleared for discharge from the pulmonary standpoint. Antibiotics per infectious disease. Follow-up in our office in 1-2 weeks' time. We will repeat a chest x-ray then. He is encouraged to call sooner with any recurrence of symptoms or other questions or concerns. I, the cosigning physician, performed a history & physical examination of the patient. Lungs sounds with few scattered rhonchi left lung. Maintaining good O2 saturations in the 90s on room air. I discussed the assessment and plan of care with my nurse practitioner, Amber Hernandez. I attest to the above note as dictated by her.
[2019-06-12 13:05] VITALS: BP 143/90
--- NOTE | 2019-06-12 16:38 | P.DS ---
Providers Date of admission: 06/09/19 16:23 Expected date of discharge: 06/12/19 Attending physician: Brian Ng MD Consults: 06/09/19 14:41 Consult Physician Routine Consulting Provider: Tanya Sauer Consult Reason/Comments: PNA Do you want consulting provider notified?: Yes 06/09/19 17:01 Consult Physician Routine Consulting Provider: Niels Chicas Consult Reason/Comments: sepsis Do you want consulting provider notified?: Yes Primary care physician: Ronal Rivas Hospital Course: Discharge Diagnosis: Left upper lobe pneumonia Lactic acidosis Sepsis present on admission as evidenced by respiratory rate of 22 and white blood cell count 13 COPD stage II without exacerbation GERD History of esophageal cancer Hypertension Seizure disorder Hospital Course: Patient is a 54-year-old male past medical history of hypertension, COPD, GERD, seizure disorder, neuropathy, and esophageal cancer status post resection with pull-through who presented to the emergency department from his primary care physician's office for shortness of breath and chest discomfort. Patient was recently admitted to the hospital 05/13 through 05/15 for pneumonia and had been discharged home with a course of Levaquin. On arrival to the ER this time. Vital signs were within normal limits. Laboratory analysis showed an elevated white blood cell count 13.1, elevated lactic acid at 2.5, and glucose of 121. Chest x-ray showed persistent but improving left lateral midlung acute infiltrate or atelectasis. Patient was started on cefepime and IV fluids. Pulmonary and infectious disease were consulted. He is seen by infectious disease and vancomycin and Levaquin were added. Legionella urine antigen was negative, Mycoplasma was negative. He underwent a swallow study which was normal, as there is concern he was having aspiration pneumonia. He also underwent a CT of the chest which showed left upper lobe pneumonia but no definitive masses. She had clinical improvement by the morning of 06/12. He was determined stable for discharge home. He will complete a course of Augmentin. I have asked him to follow-up with his family doctor Dr. Maya Kauffman as well as Dr. Berman. He should have a repeat chest x-ray in 1 week, patient is aware of this. I've also instructed him to return to the hospital. His worsening fevers, difficulty breathing, confusion, or worsening cough. Patient seen and examined at bedside. Vital signs reviewed and stable. General: non toxic, no distress, appears at stated age Derm: warm, dry Head: atraumatic, normocephalic, symmetric Eyes: EOMI, no lid lag, anicteric sclera Mouth: no lip lesion, mucus membranes moist Cardiovascular: S1S2 reg, no murmur, positive posterior tibial pulse bilateral, Lungs: CTA bilateral, no rhonchi, no rales , no accessory muscle use Abdominal: soft, nontender to palpation, no guarding, no appreciable organomegaly Ext: no gross muscle atrophy, no edema, no contractures Neuro: CN II-XI grossly intact, no focal neuro deficits Psych: Alert, oriented, appropriate affect A total of 35 minutes of time were spent preparing this complex discharge summary . Pertinent Studies: CT chest-left hilar predominantly left upper lobe pneumonia Video swallow study-normal modified barium swallow Patient Condition at Discharge: Stable Plan - Discharge Summary Discharge Rx Participant: No New Discharge Prescriptions: New Amoxic-Pot Clav 875-125Mg [Augmentin 875-125] 1 tab PO Q12HR #20 tablet Continue Omeprazole 40 mg PO HS cloNIDine HCL [Catapres] 0.1 mg PO BID Aspirin [Adult Low Dose Aspirin EC] 81 mg PO DAILY Glycopyrrolate/Formoterol Fum [Bevespi Aerosphere Inhaler] 1 puff INHALATION RT-DAILY PRN PRN Reason: Dyspnea Losartan Potassium 100 mg PO DAILY Vortioxetine Hydrobromide [Trintellix] 5 mg PO DAILY Primidone [Mysoline] 50 mg PO HS Ipratropium-Albuterol Nebulize [Duoneb 0.5 mg-3 mg/3 ml Soln] 3 ml INHALATION RT-QID Famotidine [Pepcid] 20 mg PO BID Omeprazole 20 mg PO AC-BID Discharge Medication List Omeprazole 40 mg PO HS 04/26/17 [History] Aspirin [Adult Low Dose Aspirin EC] 81 mg PO DAILY 10/02/18 [History] cloNIDine HCL [Catapres] 0.1 mg PO BID 10/02/18 [History] Glycopyrrolate/Formoterol Fum [Bevespi Aerosphere Inhaler] 1 puff INHALATION RT- DAILY PRN 03/20/19 [History] Losartan Potassium 100 mg PO DAILY 03/20/19 [History] Vortioxetine Hydrobromide [Trintellix] 5 mg PO DAILY 03/20/19 [History] Primidone [Mysoline] 50 mg PO HS 05/12/19 [History] Famotidine [Pepcid] 20 mg PO BID 06/08/19 [History] Ipratropium-Albuterol Nebulize [Duoneb 0.5 mg-3 mg/3 ml Soln] 3 ml INHALATION RT-QID 06/08/19 [History] Omeprazole 20 mg PO AC-BID 06/08/19 [History] Amoxic-Pot Clav 875-125Mg [Augmentin 875-125] 1 tab PO Q12HR #20 tablet 06/12/19 [Rx] Follow up Appointment(s)/Referral(s): Tanya Sauer MD [STAFF PHYSICIAN] - 1 Week Ronal Rivas MD [Primary Care Provider] - 1-2 days Patient Instructions/Handouts: Pneumonitis (DC) Activity/Diet/Wound Care/Special Instructions: regular diet activity as tolerated Repeat Chest x-ray in 1 week. Return to the emergency department if increased fever, worsening cough, worsening shortness of breath, confusion
[2019-06-12 16:54] VITALS: PULSE 76
[2019-06-12] MEDS: LEVOFLOXACIN 750 MG TAB PO SCH (17:04)
== END 2019-06-12 17:15 | disposition home or self-care (01) | DRG 871 ==
LOC: EC 15:50 → 1SOBS 18:18 → OBSVTOIN 06-09 16:23 → 3SCARD 06-09 17:38
PROVIDERS: ADMIT Family Medicine; ATTEND Family Medicine
DX: A41.9 Sepsis, unspecified organism (principal); J18.1 Lobar pneumonia, unspecified organism; J44.0 Chronic obstructive pulmonary disease with (acute) lower respiratory infection; E11.40 Type 2 diabetes mellitus with diabetic neuropathy, unspecified; E86.0 Dehydration; F32.9 Major depressive disorder, single episode, unspecified; F41.9 Anxiety disorder, unspecified; G40.909 Epilepsy, unspecified, not intractable, without status epilepticus; I10 Essential (primary) hypertension; K21.9 Gastro-esophageal reflux disease without esophagitis; R25.1 Tremor, unspecified; R94.4 Abnormal results of kidney function studies; E66.9 Obesity, unspecified; Z68.32 Body mass index [BMI] 32.0-32.9, adult; Z77.090 Contact with and (suspected) exposure to asbestos; Z79.82 Long term (current) use of aspirin; Z79.899 Other long term (current) drug therapy; Z85.01 Personal history of malignant neoplasm of esophagus; Z87.01 Personal history of pneumonia (recurrent); Z87.891 Personal history of nicotine dependence; Z96.651 Presence of right artificial knee joint; Z90.49 Acquired absence of other specified parts of digestive tract; Z90.3 Acquired absence of stomach [part of]; Z80.0 Family history of malignant neoplasm of digestive organs; Z82.49 Family history of ischemic heart disease and other diseases of the circulatory system; Y95 Nosocomial condition
CPT/HCPCS: 36415; 71046; 71250; 74230; 80053; 80202; 83605; 84484; 85025; 85027; 85610; 85730; 86738; 87040; 87070; 87205; 87449; 94640; 94760; 96374; 96375; 99285

== ENCOUNTER 2019-07-22 17:25 | Observation (INO) | payer BC, MEDICARE ==
[2019-07-22] MEDS ORDERED: PIPERACILLIN-TAZOBACTAM 3.375 GM in SODIUM CHLORIDE 0.9% 100 ML IVPB STA (17:45)
[2019-07-22] MEDS ORDERED: IBUPROFEN 600 MG TAB PO STA (17:45)
[2019-07-22] MEDS ORDERED: ACETAMINOPHEN TAB 500 MG TAB PO STA (17:45)
[2019-07-22] MEDS ORDERED: HYDROmorphone 0.5 MG/0.5 ML SYRINGE IVP STA (17:46)
[2019-07-22] MEDS ORDERED: ONDANSETRON 4 MG/2 ML VIAL IVP STA (17:46)
--- NOTE | 2019-07-22 18:01 | ED ---
General Adult HPI - General Chief complaint: Shortness of Breath Stated complaint: Vomiting Time Seen by Provider: 07/22/19 17:35 Source: patient, RN notes reviewed Mode of arrival: ambulatory Limitations: no limitations - History of Present Illness Initial comments: This is a 64-year-old male who presents emergency Department with a recent past medical history of pneumonia 2. Patient states he has a COPD her. Patient states he quit smoking 30 years ago. Patient states he comes in today because she's been short of breath since chest today and coughing quite a bit. Patient states he's had the same symptoms he had when he's had pneumonia in the past. Patient has not noted that he had a fever but I took it myself and it was 101.3. Patient states he has chest pain when he coughs or takes deep breaths. Patient denies any palpitations. Patient denies any abdominal pain patient denies nausea vomiting diarrhea. Patient denies any calf tenderness or leg swelling. - Related Data Home Medications Medication Instructions Recorded Confirmed Omeprazole 40 mg PO HS 04/26/17 07/22/19 Aspirin [Adult Low Dose Aspirin EC] 81 mg PO DAILY 10/02/18 07/22/19 cloNIDine HCL [Catapres] 0.1 mg PO BID 10/02/18 07/22/19 Glycopyrrolate/Formoterol Fum 1 puff INHALATION RT-DAILY PRN 03/20/19 07/22/19 [Bevespi Aerosphere Inhaler] Losartan Potassium 100 mg PO DAILY 03/20/19 07/22/19 Vortioxetine Hydrobromide 5 mg PO DAILY 03/20/19 07/22/19 [Trintellix] Primidone [Mysoline] 50 mg PO HS 05/12/19 07/22/19 Famotidine [Pepcid] 20 mg PO BID 06/08/19 07/22/19 Ipratropium-Albuterol Nebulize 3 ml INHALATION RT-QID 06/08/19 07/22/19 [Duoneb 0.5 mg-3 mg/3 ml Soln] Omeprazole 20 mg PO AC-BID 06/08/19 07/22/19 rOPINIRole HCL [Requip] 0.5 mg PO HS 07/22/19 07/22/19 Allergies Allergy/AdvReac Type Severity Reaction Status Date / Time No Known Allergies Allergy Verified 07/22/19 18:22 Review of Systems ROS Statement: Those systems with pertinent positive or pertinent negative responses have been documented in the HPI. ROS Other: All systems not noted in ROS Statement are negative. Past Medical History Past Medical History: Cancer, GERD/Reflux, Hypertension Additional Past Medical History / Comment(s): Neuropathy; esophageal cancer txed with surgery, past hx of sleep apnea and diabetes but none now after 150 pound weight loss, STATES falls easily, tremor History of Any Multi-Drug Resistant Organisms: None Reported Past Surgical History: Appendectomy, Hernia Repair, Joint Replacement, Orthopedic Surgery Additional Past Surgical History / Comment(s): LEFT ROTATOR CUFF.hilary. elbow, hilary wrist carpal tunnel, rt shoulder rotator cuff, rt knee arthroscopy, surgery for esophageal cancer (removed part of esophagus and removed part of stomach making it into carrot shaper per patient), rt knee replacement, hernia surgery x3 Past Anesthesia/Blood Transfusion Reactions: Previous Problems w/ Anesthesia Additional Past Anesthesia/Blood Transfusion Reaction / Comment(s): can not lay flat- "stomach acid will come out my nose" Past Psychological History: Anxiety, Depression Smoking Status: Former smoker Past Alcohol Use History: None Reported Past Drug Use History: None Reported - Past Family History Father Family Medical History: Cancer Additional Family Medical History / Comment(s): COLON Mother Family Medical History: Cancer, Deep Vein Thrombosis (DVT) Additional Family Medical History / Comment(s): brain aneurysm General Exam - General Exam Comments Initial Comments: GENERAL: Patient is well-developed and well-nourished. Patient is nontoxic and well- hydrated and is in mild distress. ENT: Neck is soft and supple. No significant lymphadenopathy is noted. Oropharynx is clear. Moist mucous membranes. Neck has full range of motion without eliciting any pain. EYES: The sclera were anicteric and conjunctiva were pink and moist. Extraocular movements were intact and pupils were equal round and reactive to light. Eyelids were unremarkable. PULMONARY: Unlabored respirations. Good breath sounds bilaterally. No audible rales rhonchi or wheezing was noted. CARDIOVASCULAR: There is a regular rate and rhythm without any murmurs gallops or rubs. ABDOMEN: Soft and nontender with normal bowel sounds. SKIN: Skin is clear with no lesions or rashes and otherwise unremarkable. NEUROLOGIC: Patient is alert and oriented x3. Cranial nerves II through XII are grossly intact. Motor and sensory are also intact. Normal speech, volume and content. Symmetrical smile. MUSCULOSKELETAL: Normal extremities with adequate strength and full range of motion. No lower ex tremity swelling or edema. No calf tenderness. LYMPHATICS: No significant lymphadenopathy is noted PSYCHIATRIC: Normal psychiatric evaluation. Limitations: no limitations Course Vital Signs 07/22/19 07/22/19 07/22/19 17:32 17:52 19:18 Temperature 98.2 F 101.3 F H 99.9 F H Pulse Rate 107 H 100 Respiratory 18 20 Rate Blood Pressure 139/84 142/82 O2 Sat by Pulse 94 L 96 Oximetry Medical Decision Making - Medical Decision Making EKG shows normal sinus rhythm at 93 bpm UT interval 158 QRS is under 2 QT interval 320 QTC is 407 per patient's EKG shows no ST segment elevation or depression. Chest x-ray does not show any obvious pneumonia. Patient continues to be mildly short of breath. Because of his recent history of 2 bouts of pneumonia we'll be treating the patient for bronchitis and admitting to Dr. Dixon. I spoke with Dr. Dixon he agreed to admit the patient admitted the patient and I continued antibiotics. - Lab Data Result diagrams: 07/22/19 18:15 07/22/19 18:15 Lab Results 07/22/19 07/22/19 07/22/19 Range/Units 18:15 18:15 18:15 WBC 12.4 H (3.8-10.6) k/uL RBC 5.31 (4.30-5.90) m/uL Hgb 14.9 (13.0-17.5) gm/dL Hct 46.8 (39.0-53.0) % MCV 88.0 (80.0-100.0) fL MCH 28.1 (25.0-35.0) pg MCHC 31.9 (31.0-37.0) g/dL RDW 14.7 (11.5-15.5) % Plt Count 238 (150-450) k/uL Neutrophils % 91 % Lymphocytes % 2 % Monocytes % 5 % Eosinophils % 1 % Basophils % 2 % Neutrophils # 11.3 H (1.3-7.7) k/uL Lymphocytes # 0.2 L (1.0-4.8) k/uL Monocytes # 0.6 (0-1.0) k/uL Eosinophils # 0.1 (0-0.7) k/uL Basophils # 0.2 (0-0.2) k/uL PT (9.0-12.0) sec INR (<1.2) APTT (22.0-30.0) sec Sodium 133 L (137-145) mmol/L Potassium 3.9 (3.5-5.1) mmol/L Chloride 102 (98-107) mmol/L Carbon Dioxide 19 L (22-30) mmol/L Anion Gap 12 mmol/L BUN 18 (9-20) mg/dL Creatinine 0.91 (0.66-1.25) mg/dL Est GFR (CKD-EPI)AfAm >90 (>60 ml/min/1.73 sqM) Est GFR (CKD-EPI)NonAf 88 (>60 ml/min/1.73 sqM) Glucose 110 H (74-99) mg/dL Plasma Lactic Acid Son 2.2 H* (0.7-2.0) mmol/L Calcium 8.9 (8.4-10.2) mg/dL Total Bilirubin 0.8 (0.2-1.3) mg/dL AST 21 (17-59) U/L ALT 23 (21-72) U/L Alkaline Phosphatase 73 (38-126) U/L Troponin I (0.000-0.034) ng/mL Total Protein 6.8 (6.3-8.2) g/dL Albumin 4.1 (3.5-5.0) g/dL Urine Color Urine Appearance (Clear) Urine pH (5.0-8.0) Ur Specific [place] (1.001-1.035) Urine Protein (Negative) Urine Glucose (UA) (Negative) Urine Ketones (Negative) Urine Blood (Negative) Urine Nitrite (Negative) Urine Bilirubin (Negative) Urine Urobilinogen (<2.0) mg/dL Ur Leukocyte Esterase (Negative) Urine RBC (0-5) /hpf Urine WBC (0-5) /hpf Amorphous Sediment (None) /hpf Urine Mucus (None) /hpf 07/22/19 07/22/19 07/22/19 Range/Units 18:15 18:15 18:44 WBC (3.8-10.6) k/uL RBC (4.30-5.90) m/uL Hgb (13.0-17.5) gm/dL Hct (39.0-53.0) % MCV (80.0-100.0) fL MCH (25.0-35.0) pg MCHC (31.0-37.0) g/dL RDW (11.5-15.5) % Plt Count (150-450) k/uL Neutrophils % % Lymphocytes % % Monocytes % % Eosinophils % % Basophils % % Neutrophils # (1.3-7.7) k/uL Lymphocytes # (1.0-4.8) k/uL Monocytes # (0-1.0) k/uL Eosinophils # (0-0.7) k/uL Basophils # (0-0.2) k/uL PT 10.7 (9.0-12.0) sec INR 1.0 (<1.2) APTT 26.4 (22.0-30.0) sec Sodium (137-145) mmol/L Potassium (3.5-5.1) mmol/L Chloride (98-107) mmol/L Carbon Dioxide (22-30) mmol/L Anion Gap mmol/L BUN (9-20) mg/dL Creatinine (0.66-1.25) mg/dL Est GFR (CKD-EPI)AfAm (>60 ml/min/1.73 sqM) Est GFR (CKD-EPI)NonAf (>60 ml/min/1.73 sqM) Glucose (74-99) mg/dL Plasma Lactic Acid Son (0.7-2.0) mmol/L Calcium (8.4-10.2) mg/dL Total Bilirubin (0.2-1.3) mg/dL AST (17-59) U/L ALT (21-72) U/L Alkaline Phosphatase (38-126) U/L Troponin I <0.012 (0.000-0.034) ng/mL Total Protein (6.3-8.2) g/dL Albumin (3.5-5.0) g/dL Urine Color Yellow Urine Appearance Clear (Clear) Urine pH 6.0 (5.0-8.0) Ur Specific [place] 1.033 (1.001-1.035) Urine Protein 1+ H (Negative) Urine Glucose (UA) Negative (Negative) Urine Ketones Trace H (Negative) Urine Blood Negative (Negative) Urine Nitrite Negative (Negative) Urine Bilirubin Negative (Negative) Urine Urobilinogen 4.0 (<2.0) mg/dL Ur Leukocyte Esterase Negative (Negative) Urine RBC 2 (0-5) /hpf Urine WBC 2 (0-5) /hpf Amorphous Sediment Rare H (None) /hpf Urine Mucus Many H (None) /hpf Disposition Clinical Impression: Dyspnea, Bronchitis Disposition: ADMITTED IP TO THIS HOSP Referrals: Ronal Rivas MD [Primary Care Provider] - 1-2 days Time of Disposition: 19:44
[2019-07-22] MEDS: SODIUM CHLORIDE 0.9% 500 ML 500 ML IV SCH ×2 (18:23→19:20)
[2019-07-22 18:31] LABS: Basophils # (A) 0.2 k/uL (0-0.2); Basophils % (A) 2 %; Eosinophils # (A) 0.1 k/uL (0-0.7); Eosinophils % (A) 1 %; HCT 46.8 % (39.0-53.0); HGB 14.9 gm/dL (13.0-17.5); Lymphocytes # (A) 0.2 k/uL (1.0-4.8); Lymphocytes % (A) 2 %; MCH 28.1 pg (25.0-35.0); MCHC 31.9 g/dL (31.0-37.0); Mean Platelet Volume 6.1; Monocytes # (A) 0.6 k/uL (0-1.0); Monocytes % (A) 5 %; Neutrophils # (A) 11.3 k/uL (1.3-7.7); Neutrophils % (A) 91 %; Platelet Count 238 k/uL (150-450); RBC 5.31 m/uL (4.30-5.90); RDW 14.7 % (11.5-15.5); WBC 12.4 k/uL (3.8-10.6)
[2019-07-22 18:40] LABS: ALT 23 U/L (21-72); AST 21 U/L (17-59); African American GFR (CKD) >90 (>60 ml/min/1.73 sqM); Albumin 4.1 g/dL (3.5-5.0); Alkaline Phosphatase 73 U/L (38-126); Anion Gap 12 mmol/L; Blood Urea Nitrogen 18 mg/dL (9-20); Calcium 8.9 mg/dL (8.4-10.2); Carbon Dioxide 19 mmol/L (22-30); Chloride 102 mmol/L (98-107); Glucose 110 mg/dL (74-99); Potassium 3.9 mmol/L (3.5-5.1); Sodium 133 mmol/L (137-145); Total Bilirubin 0.8 mg/dL (0.2-1.3); Total Protein 6.8 g/dL (6.3-8.2)
[2019-07-22 18:44] LABS: Partial Thromboplastin Time 26.4 sec (22.0-30.0); Prothrombin Time 10.7 sec (9.0-12.0)
--- NOTE | 2019-07-22 18:57 | XR ---
EXAMINATION TYPE: XR chest 2V DATE OF EXAM: 07/22/2019 COMPARISON: 06/24/2019 HISTORY: Vomiting. Short of breath TECHNIQUE: Frontal and lateral views of the chest are obtained. FINDINGS: There is increased density in the right hemithorax related to gastric pull-through procedu re. There is no heart failure. Lungs are clear of consolidation. There are chest leads. There is no p leural effusion. IMPRESSION: No active cardiopulmonary disease. No significant change compared to last exam.
[2019-07-22 19:14] LABS: Amorphous Sediment,Urine Rare /hpf; Appearance,Urine Clear (Clear); Bilirubin,Urine Negative (Negative); Blood,Urine Negative (Negative); Color,Urine Yellow; Glucose,Urine (UA) Negative (Negative); Ketones,Urine Trace (Negative); Leukocyte Esterase,Urine Negative (Negative); Mucus,Urine Many /hpf; Nitrite,Urine Negative (Negative); Protein,Urine 1+ (Negative); RBC,Urine 2 /hpf (0-5); Specific Gravity,Urine 1.033 (1.001-1.035)
[2019-07-22] MEDS ORDERED: PNEUMONIA PROTOCOL UTILIZED 1 EACH MISC PO PRN (19:45)
[2019-07-22] MEDS ORDERED: AZITHROMYCIN 500 MG in SODIUM CHLORIDE 0.9% 250 ML IVPB STA (19:45)
[2019-07-22] MEDS ORDERED: ACETAMINOPHEN TAB 325 MG TAB PO PRN (23:01)
[2019-07-23] MEDS ORDERED: FORMOTEROL FUMARATE 20 MCG/2 ML NEBU INHALATION PRN (08:00)
[2019-07-23] MEDS: VORTIOXETINE HYDROBROMIDE 10 MG TABLET PO SCH (08:42)
[2019-07-23] MEDS: FAMOTIDINE 20 MG TAB PO SCH ×2 (08:42→21:57)
[2019-07-23] MEDS: PANTOPRAZOLE 40 MG TABLET PO SCH (08:42)
[2019-07-23] MEDS: LOSARTAN 50 MG TAB PO SCH (08:43)
[2019-07-23] MEDS: cloNIDine HCL 0.1 MG TAB PO SCH ×2 (08:43→21:56)
[2019-07-23] MEDS: ASPIRIN 81 MG PO SCH (08:43)
[2019-07-23] MEDS: IPRATROPIUM-ALBUTEROL 3 ML NEB INHALATION SCH ×5 (08:57→23:57)
[2019-07-23] MEDS: FORMOTEROL FUMARATE 20 MCG/2 ML NEBU INHALATION PRN ×2 (09:05→20:58)
--- NOTE | 2019-07-23 09:52 | XR ---
EXAMINATION TYPE: XR chest 2V DATE OF EXAM: 07/23/2019 COMPARISON: 07/22/2019 TECHNIQUE: PA and lateral views submitted. HISTORY: Pneumonia FINDINGS: Subsegmental consolidation is noted. Heart is stable. Chronic rib deformities are seen. Previous rota tor cuff surgery. No pneumothorax or interstitial edema. No pleural effusion. IMPRESSION: 1. Stable right-sided consolidation which may be related the patient's history of gastric pull-throug h procedure.
--- NOTE | 2019-07-23 17:35 | P.HPIM ---
History of Present Illness H&P Date: 07/23/19 Chief Complaint: Short of breath History of presenting complaint: This is a 64-year-old patient of Dr. richey out of [place]. Chronic stable medical conditions include GERD, hypertension, peripheral neuropathy, esophageal cancer with surgery,. Previously did have sleep apnea and diabetes. Because of weight loss with a corrected. Some occasional baseline tremor. Anxiety depression. Patient now presents with 2 days of increasing shortness of breath had a cough not really able to expectorate. Had chills and fever. Appetite has been okay. Wheezing. Admitted for the same. Started on bronchodilators IV antibiotics in the ER. Admitted for the same. Does feel tired and rundown. Some improvement with the antibiotics. Review of systems: GEN.: Fever or chills EYES: None HEENT: None NECK: None RESPIRATORY: As above CARDIOVASCULAR: None GASTROINTESTINAL: None GENITOURINARY: None MUSCULOSKELETAL: None LYMPHATICS: None HEMATOLOGICAL: None PSYCHIATRY: Anxious NEUROLOGICAL: None Social history: . Smoked a pack a day for 10 years and stopped 32 years ago. Retired [employer]. Physical examination: VITAL SIGNS: 101.3, 107, 18, 139 with 84, 94% room air GENERAL: BMI 31.6, sitting up, tired appearing. EYES: Pupils equal. Conjunctiva normal. HEENT: External appearance of nose and ears normal, oral cavity grossly normal. NECK: JVD not raised; masses not palpable. HEART: First and second heart sounds are normal; no edema. LUNGS: Respiratory rate increased, decreased breath sounds some wheezing. ABDOMEN: Soft, nontender, liver spleen not palpable, no masses palpable. PSYCH: Alert and oriented x3; mood and affect anxiousl. NEUROLOGICAL: Cranial nerves grossly intact; no facial asymmetry, power and sensation grossly intact. LYMPHATICS: No lymph nodes palpable in the axilla and neck INVESTIGATIONS, reviewed in the clinical context: White count 12.4 hemoglobin 14.9 platelets 238 potassium 3.9 creatinine 0.91 Lactic acid 2.2 Influenza A and B- EKG tracing personally reviewed by me-sinus rhythm Chest x-ray film personally reviewed by me-cannot rule out right basilar infiltrate. Per report result of stomach pull-through surgery. Assessment: -Acute COPD exacerbation in an ex-smoker -Possible right lower lobe pneumonia suspect gram-negative organism, causing sepsis on presentation -GERD -Essential hypertension -Idiopathic peripheral neuropathy -Restless leg syndrome -Depression and anxiety not otherwise specified -Obesity BMI 31.6 Plan: -Patient started on IV ceftriaxone and Zithromax. Bronchodilator. IV Solu-M edrol and inhaled steroids added. Lovenox for DVT prophylaxis. Care was discussed with the patient. Reassured. Pulmonary will be consulted. Past Medical History Past Medical History: Cancer, GERD/Reflux, Hypertension Additional Past Medical History / Comment(s): Neuropathy; esophageal cancer txed with surgery, past hx of sleep apnea and diabetes but none now after 150 pound weight loss, STATES falls easily, tremor History of Any Multi-Drug Resistant Organisms: None Reported Past Surgical History: Appendectomy, Hernia Repair, Joint Replacement, Orthopedic Surgery Additional Past Surgical History / Comment(s): LEFT ROTATOR CUFF.hilary. elbow, hilary wrist carpal tunnel, rt shoulder rotator cuff, rt knee arthroscopy, surgery for esophageal cancer (removed part of esophagus and removed part of stomach making it into carrot shaper per patient), rt knee replacement, hernia surgery x3 Past Anesthesia/Blood Transfusion Reactions: Previous Problems w/ Anesthesia Additional Past Anesthesia/Blood Transfusion Reaction / Comment(s): can not lay flat- "stomach acid will come out my nose" Past Psychological History: Anxiety, Depression Additional Psychological History / Comment(s): Pt lives at home with his . Pt is normally independent. Smoking Status: Former smoker Past Alcohol Use History: None Reported Additional Past Alcohol Use History / Comment(s): Patient was a smoker one pack per day for 10 years and quit ago 32 years ago. He lives at home with his . He is retired [employer] with exposure to asbestos. There is one cat, a Great Power and a Mountainh terrier in the home. Patient enjoys camping, bicycling, gardening and yard work. No recent travel outside of [place]. The patient has been camping in [place]. Past Drug Use History: None Reported - Past Family History Father Family Medical History: Cancer Additional Family Medical History / Comment(s): COLON Mother Family Medical History: Cancer, Deep Vein Thrombosis (DVT) Additional Family Medical History / Comment(s): brain aneurysm Medications and Allergies Home Medications Medication Instructions Recorded Confirmed Type Omeprazole 40 mg PO HS 04/26/17 07/22/19 History Aspirin [Adult Low Dose Aspirin EC] 81 mg PO DAILY 10/02/18 07/22/19 History cloNIDine HCL [Catapres] 0.1 mg PO BID 10/02/18 07/22/19 History Glycopyrrolate/Formoterol Fum 1 puff INHALATION RT-DAILY PRN 03/20/19 07/22/19 History [Bevespi Aerosphere Inhaler] Losartan Potassium 100 mg PO DAILY 03/20/19 07/22/19 History Vortioxetine Hydrobromide 5 mg PO DAILY 03/20/19 07/22/19 History [Trintellix] Primidone [Mysoline] 50 mg PO HS 05/12/19 07/22/19 History Famotidine [Pepcid] 20 mg PO BID 06/08/19 07/22/19 History Ipratropium-Albuterol Nebulize 3 ml INHALATION RT-QID 06/08/19 07/22/19 History [Duoneb 0.5 mg-3 mg/3 ml Soln] Omeprazole 20 mg PO AC-BID 06/08/19 07/22/19 History rOPINIRole HCL [Requip] 0.5 mg PO HS 07/22/19 07/22/19 History Allergies Allergy/AdvReac Type Severity Reaction Status Date / Time No Known Allergies Allergy Verified 07/22/19 18:22 Physical Exam Vitals: Vital Signs Temp Pulse Pulse Resp BP BP Pulse Ox 07/23/19 09:18 88 07/23/19 09:11 100 07/23/19 09:00 96 07/23/19 04:22 98.0 F 80 24 114/69 94 L 07/22/19 21:27 98.0 F 81 18 101/63 94 L 07/22/19 20:15 98.9 F 88 18 125/75 95 07/22/19 19:18 99.9 F H 100 20 142/82 96 07/22/19 17:52 101.3 F H 07/22/19 17:32 98.2 F 107 H 18 139/84 94 L Intake and Output 07/22/19 07/23/19 07/23/19 22:59 06:59 14:59 Other: # Voids 0 0 Weight 99.79 kg Results CBC & Chem 7: 07/22/19 18:15 07/22/19 18:15 Labs: Abnormal Lab Results - Last 24 Hours (Table) 07/22/19 07/22/19 07/22/19 Range/Units 18:15 18:15 18:15 WBC 12.4 H (3.8-10.6) k/uL Neutrophils # 11.3 H (1.3-7.7) k/uL Lymphocytes # 0.2 L (1.0-4.8) k/uL Sodium 133 L (137-145) mmol/L Carbon Dioxide 19 L (22-30) mmol/L Glucose 110 H (74-99) mg/dL Plasma Lactic Acid Son 2.2 H* (0.7-2.0) mmol/L Urine Protein (Negative) Urine Ketones (Negative) Amorphous Sediment (None) /hpf Urine Mucus (None) /hpf 07/22/19 Range/Units 18:44 WBC (3.8-10.6) k/uL Neutrophils # (1.3-7.7) k/uL Lymphocytes # (1.0-4.8) k/uL Sodium (137-145) mmol/L Carbon Dioxide (22-30) mmol/L Glucose (74-99) mg/dL Plasma Lactic Acid Son (0.7-2.0) mmol/L Urine Protein 1+ H (Negative) Urine Ketones Trace H (Negative) Amorphous Sediment Rare H (None) /hpf Urine Mucus Many H (None) /hpf Thrombosis Risk Factor Assmnt - Choose All That Apply Any of the Below Risk Factors Present?: Yes Each Factor Represents 1 point: Abnormal pulmonary function (COPD), Obesity (BMI >25), Serious lung disease incl. pneumonia (< 1month) Other Risk Factors: Yes Each Risk Factor Represents 2 Points: Age 61-74 years Other congenital or acquired thrombophilia - If yes, enter type in comment: No Thrombosis Risk Factor Assessment Total Risk Factor Score: 5 Thrombosis Risk Factor Assessment Level: High Risk
[2019-07-23] MEDS: methylPREDNISolone SOD SUCCI 40 MG/ML 1 ML VIAL IV SCH (18:07)
[2019-07-23] MEDS: ENOXAPARIN 40 MG/0.4 ML SYRINGE SQ SCH (18:07)
[2019-07-23] MEDS: BUDESONIDE 1 MG/2 ML NEBU INHALATION SCH (20:58)
[2019-07-23] MEDS ORDERED: AZITHROMYCIN 500 MG TAB PO SCH (21:00)
[2019-07-23] MEDS ORDERED: PANTOPRAZOLE 40 MG TABLET PO SCH (21:00)
[2019-07-23] MEDS ORDERED: PRIMIDONE 50 MG TAB PO SCH (21:00)
[2019-07-23 21:48] LABS: Glucose,Whole Blood 174 mg/dL (75-99)
[2019-07-23] MEDS: INSULIN ASPART (NovoLOG) 100 UNIT/ML VIAL SQ SCH (21:57)
[2019-07-24] MEDS: methylPREDNISolone SOD SUCCI 40 MG/ML 1 ML VIAL IV SCH ×2 (00:06→08:27)
[2019-07-24] MEDS: IPRATROPIUM-ALBUTEROL 3 ML NEB INHALATION SCH ×3 (03:52→11:17)
[2019-07-24 07:02] LABS: Glucose,Whole Blood 177 mg/dL (75-99)
[2019-07-24] MEDS: FORMOTEROL FUMARATE 20 MCG/2 ML NEBU INHALATION PRN (07:17)
[2019-07-24] MEDS: BUDESONIDE 1 MG/2 ML NEBU INHALATION SCH (07:18)
[2019-07-24] MEDS: PANTOPRAZOLE 40 MG TABLET PO SCH (08:26)
[2019-07-24] MEDS: VORTIOXETINE HYDROBROMIDE 10 MG TABLET PO SCH (08:26)
[2019-07-24] MEDS: LOSARTAN 50 MG TAB PO SCH (08:26)
[2019-07-24] MEDS: INSULIN ASPART (NovoLOG) 100 UNIT/ML VIAL SQ SCH ×2 (08:27→11:59)
[2019-07-24] MEDS: FAMOTIDINE 20 MG TAB PO SCH (08:27)
[2019-07-24] MEDS: ASPIRIN 81 MG PO SCH (08:27)
[2019-07-24] MEDS: cloNIDine HCL 0.1 MG TAB PO SCH (08:27)
[2019-07-24] MEDS: ENOXAPARIN 40 MG/0.4 ML SYRINGE SQ SCH (08:27)
[2019-07-24 11:17] LABS: Glucose,Whole Blood 185 mg/dL (75-99)
--- NOTE | 2019-07-24 11:36 | P.CNPUL ---
History of Present Illness Consult date: 07/24/19 Requesting physician: Gurdeep Dixon Reason for consult: dyspnea, COPD Chief complaint: Shortness of breath, cough, congestion History of present illness: This is a very pleasant 64-year-old gentleman who follows with Dr. Rivas as his primary care physician. He has a history of hypertension, gastroesophageal reflux disease, esophageal cancer with pull-through surgery, osteoarthritis with multiple orthopedic surgeries. He does have a previous history of smoking and chronic obstructive pulmonary disease and follows with Dr. Sauer in our office for the same. He is maintained on Bevespi Aerosphere inhaler and DuoNeb inhalations. He presented here to the emergency room on 07/22/2019 with complaints of increasing shortness of breath cough and congestion. T-max 101.3. Some chest discomfort with coughing and deep breathing. Chest x-ray did not reveal any acute cardiopulmonary process. Influenza screen was negative. White count 12.4. Hemoglobin 14.9. Sodium 133. Potassium 3.9. Bicarb 19. Creatinine 0.91. Troponin negative 1. Lactic acid 0.8. He had been initiated on DuoNeb inhalations, IV Solu-Medrol, antibiotics in the form of ceftriaxone and azithromycin. He is seen today in consultation on the regular medical floor. He is up ambulating in his room. Awake and alert in no acute distress. He is feeling nearly back to his baseline already. No worsening shortness of breath, cough or congestion. He is afebrile. Hemodynamically stable. Maintaining O2 saturation in the 90s on room air. Blood and sputum cultures reveal no growth to date. Review of Systems REVIEW OF SYSTEMS: CONSTITUTIONAL: Denies any recent significant weight loss or weight gain. EYES: Denies change in vision. EARS, NOSE, MOUTH, THROAT: Denies headaches, denies sore throat. CARDIOVASCULAR: Denies chest pain, palpitations or syncopal episodes. RESPIRATORY: Positive for shortness of breath, cough, congestion no hemoptysis. GASTROINTESTINAL: Denies change in appetite, denies abdominal pain GENITOURINARY: Denies hematuria, denies infections. MUSKULOSKELETAL: Denies pain, denies swelling. INTEGUMENTARY: Denies rash, denies eczema. NEUROLOGICAL: Denies recent memory loss, no recent seizure activity. PSYCHIATRIC: Denies anxiety, denies depression. HEMATOLOGIC/LYMPHATIC: Denies anemia, denies enlarged lymph nodes. Past Medical History Past Medical History: Cancer, GERD/Reflux, Hypertension Additional Past Medical History / Comment(s): Neuropathy; esophageal cancer txed with surgery, past hx of sleep apnea and diabetes but none now after 150 pound weight loss, STATES falls easily, tremor History of Any Multi-Drug Resistant Organisms: None Reported Past Surgical History: Appendectomy, Hernia Repair, Joint Replacement, Orthopedic Surgery Additional Past Surgical History / Comment(s): LEFT ROTATOR CUFF.hilary. elbow, hilary wrist carpal tunnel, rt shoulder rotator cuff, rt knee arthroscopy, surgery for esophageal cancer (removed part of esophagus and removed part of stomach making it into carrot shaper per patient), rt knee replacement, hernia surgery x3 Past Anesthesia/Blood Transfusion Reactions: Previous Problems w/ Anesthesia Additional Past Anesthesia/Blood Transfusion Reaction / Comment(s): can not lay flat- "stomach acid will come out my nose" Past Psychological History: Anxiety, Depression Additional Psychological History / Comment(s): Pt lives at home with his . Pt is normally independent. Smoking Status: Former smoker Past Alcohol Use History: None Reported Additional Past Alcohol Use History / Comment(s): Patient was a smoker one pack per day for 10 years and quit ago 32 years ago. He lives at home with his . He is retired [employer] with exposure to asbestos. There is one cat, a Great Power and a Mountainh terrier in the home. Patient enjoys camping, bicycling, gardening and yard work. No recent travel outside of [place]. The patient has been camping in [place]. Past Drug Use History: None Reported - Past Family History Father Family Medical History: Cancer Additional Family Medical History / Comment(s): COLON Mother Family Medical History: Cancer, Deep Vein Thrombosis (DVT) Additional Family Medical History / Comment(s): brain aneurysm Medications and Allergies Home Medications Medication Instructions Recorded Confirmed Type Omeprazole 40 mg PO HS 04/26/17 07/22/19 History Aspirin [Adult Low Dose Aspirin EC] 81 mg PO DAILY 10/02/18 07/22/19 History cloNIDine HCL [Catapres] 0.1 mg PO BID 10/02/18 07/22/19 History Glycopyrrolate/Formoterol Fum 1 puff INHALATION RT-DAILY PRN 03/20/19 07/22/19 History [Bevespi Aerosphere Inhaler] Losartan Potassium 100 mg PO DAILY 03/20/19 07/22/19 History Vortioxetine Hydrobromide 5 mg PO DAILY 03/20/19 07/22/19 History [Trintellix] Primidone [Mysoline] 50 mg PO HS 05/12/19 07/22/19 History Famotidine [Pepcid] 20 mg PO BID 06/08/19 07/22/19 History Ipratropium-Albuterol Nebulize 3 ml INHALATION RT-QID 06/08/19 07/22/19 History [Duoneb 0.5 mg-3 mg/3 ml Soln] Omeprazole 20 mg PO AC-BID 06/08/19 07/22/19 History rOPINIRole HCL [Requip] 0.5 mg PO HS 07/22/19 07/22/19 History Allergies Allergy/AdvReac Type Severity Reaction Status Date / Time No Known Allergies Allergy Verified 07/22/19 18:22 Physical Exam Vitals: Vital Signs Temp Pulse Pulse Resp BP Pulse Ox 07/24/19 11:17 72 07/24/19 07:47 74 07/24/19 07:33 72 07/24/19 07:32 72 07/24/19 07:19 76 07/24/19 04:45 97.1 F L 80 20 120/67 94 L 07/24/19 04:04 80 07/24/19 03:52 72 07/24/19 00:09 88 07/23/19 23:57 76 07/23/19 21:45 97.9 F 96 22 135/76 95 07/23/19 21:21 84 07/23/19 21:11 80 07/23/19 21:10 82 07/23/19 20:59 84 07/23/19 16:39 82 07/23/19 16:27 86 97 07/23/19 13:23 98.0 F 80 16 142/77 93 L 07/23/19 13:03 84 07/23/19 12:51 88 Intake and Output 07/23/19 07/24/19 07/24/19 22:59 06:59 14:59 Intake Total 100 Balance 100 Intake: Intake, IV Titration 100 Amount cefTRIAXone 1 gm In 100 Sodium Chloride 0.9% 50 ml @ 100 mls/hr IVPB Q24HR [facility] Rx#:[id number] Other: # Voids 2 2 GENERAL EXAM: Alert, active, pleasant 64-year-old gentleman, comfortable in no a pparent distress. On room air. HEAD: Normocephalic. EYES: Normal reaction of pupils, equal size. NOSE: Clear with pink turbinates. THROAT: No erythema or exudates. NECK: No masses, no JVD. CHEST: No chest wall deformity. LUNGS: Equal air entry with no crackles, wheeze, rhonchi or dullness. CVS: S1 and S2 normal with no audible murmur, regular rhythm. ABDOMEN: No hepatosplenomegaly, normal bowel sounds, no guarding or rigidity. SPINE: No scoliosis or deformity SKIN: No rashes CENTRAL NERVOUS SYSTEM: No focal deficits, tone is normal in all 4 extremities. EXTREMITIES: There is no peripheral edema. No clubbing, no cyanosis. Peripheral pulses are intact. Results - Laboratory Findings CBC and BMP: 07/22/19 18:15 07/22/19 18:15 PT/INR, D-dimer PT 10.7 sec (9.0-12.0) 07/22/19 18:15 INR 1.0 (<1.2) 07/22/19 18:15 Abnormal lab findings: Abnormal Labs 07/22/19 07/22/19 07/22/19 18:15 18:15 18:15 WBC 12.4 H Neutrophils # 11.3 H Lymphocytes # 0.2 L Sodium 133 L Carbon Dioxide 19 L Glucose 110 H POC Glucose (mg/dL) Plasma Lactic Acid Son 2.2 H* Urine Protein Urine Ketones Amorphous Sediment Urine Mucus 07/22/19 07/23/19 07/24/19 18:44 21:47 06:59 WBC Neutrophils # Lymphocytes # Sodium Carbon Dioxide Glucose POC Glucose (mg/dL) 174 H 177 H Plasma Lactic Acid Son Urine Protein 1+ H Urine Ketones Trace H Amorphous Sediment Rare H Urine Mucus Many H 07/24/19 11:14 WBC Neutrophils # Lymphocytes # Sodium Carbon Dioxide Glucose POC Glucose (mg/dL) 185 H Plasma Lactic Acid Son Urine Protein Urine Ketones Amorphous Sediment Urine Mucus - Diagnostic Findings Chest x-ray: image reviewed Assessment and Plan Assessment: Impression: #1 Acute exacerbation of chronic obstructive pulmonary disease, complicated by purulent tracheobronchitis. No clear evidence of pneumonia. #2 History of remote chronic tobacco dependence quit 30 years ago. #3 History of esophageal cancer status post surgery with pull-through. #4 Hypertension. #5 Gastric esophageal reflux disease. #6 Previous history of diabetes mellitus and sleep apnea however he did lose 150 pounds after his esophageal surgery. On no current diabetes medications or CPAP. #7 History of depression. Plan: The patient was seen and evaluated by Dr. Sauer. Chest x-ray and labs were all reviewed. He is currently stable for discharge from the pulmonary standpoint. Complete prednisone burst and taper starting at 40 mg daily for 4 days. Resume his home pulmonary medications. Complete a course of antibiotics. Follow-up in our office in 1-2 weeks' time. He is encouraged to call sooner with any recurrence of symptoms or other questions or concerns. I, the cosigning physician, performed a history & physical examination of the patient. Lungs sounds are clear, diminished. Maintaining good O2 saturations in the 90s on room air. I discussed the assessment and plan of care with my nurse practitioner, Amber Hernandez. I attest to the above consultation as dictated by her. Time with Patient: Greater than 30
[2019-07-24 13:18] VITALS: BP 147/77; PULSE 92; RESP 14; TEMP 97.9
--- NOTE | 2019-07-25 20:50 | P.DS ---
Providers Date of admission: 07/22/19 19:46 Expected date of discharge: 07/24/19 Attending physician: Gurdeep Dixon Consults: 07/23/19 17:36 Consult Physician Routine Consulting Provider: Tanya Sauer Consult Reason/Comments: pneumonia Do you want consulting provider notified?: Yes Primary care physician: Ronal Rivas [facility] Course: Chief Complaint: Short of breath Hospital course: This is a 64-year-old patient of Dr. rivas out of [place]. Chronic stable medical conditions include GERD, hypertension, peripheral neuropathy, esophageal cancer with surgery,. Previously did have sleep apnea and diabetes. Because of weight loss with a corrected. Some occasional baseline tremor. Anxiety depression. Patient now presents with 2 days of increasing shortness of breath had a cough not really able to expectorate. Had chills and fever. Appetite has been okay. Wheezing. Admitted for the same. Started on bronchodilators IV antibiotics in the ER. Admitted for the same. Does feel tired and rundown. Some improvement with the antibiotics. Admitted with pneumonia, sepsis, COPD exacerbation Doing much better without discharge. Up and about. Very much improved. Care was discussed with the patient. Consultation: Dr. Tanya Alvares from pulmonary Physical examination: VITAL SIGNS: 97.9, 92, 14, 147/77, 96% room air GENERAL: BMI 31.6, sitting up, tired appearing. EYES: Pupils equal. Conjunctiva normal. HEENT: External appearance of nose and ears normal, oral cavity grossly normal. NECK: JVD not raised; masses not palpable. HEART: First and second heart sounds are normal; no edema. LUNGS: Respiratory rate normal, decreased breath sounds ABDOMEN: Soft, nontender, liver spleen not palpable, no masses palpable. PSYCH: Alert and oriented x3; mood and affect anxiousl. INVESTIGATIONS, reviewed in the clinical context: White count 12.4 hemoglobin 14.9 platelets 238 potassium 3.9 creatinine 0.91 Lactic acid 2.2 Influenza A and B- EKG tracing personally reviewed by me-sinus rhythm Chest x-ray film personally reviewed by me-cannot rule out right basilar infiltrate. Per report result of stomach pull-through surgery. Discharge diagnosis: -Acute COPD exacerbation in an ex-smoker -Possible right lower lobe pneumonia suspect gram-negative organism, causing sepsis on presentation -GERD -Essential hypertension -Idiopathic peripheral neuropathy -Restless leg syndrome -Depression and anxiety not otherwise specified -Obesity BMI 31.6 Disposition: Home Patient Condition at Discharge: Stable Plan - Discharge Summary New Discharge Prescriptions: New Cefuroxime Axetil [Ceftin] 500 mg PO BID 3 Days #6 tab predniSONE 10 mg PO DAILY #30 tab Continue Omeprazole 40 mg PO HS cloNIDine HCL [Catapres] 0.1 mg PO BID Aspirin [Adult Low Dose Aspirin EC] 81 mg PO DAILY Glycopyrrolate/Formoterol Fum [Bevespi Aerosphere Inhaler] 1 puff INHALATION RT-DAILY PRN PRN Reason: Dyspnea Losartan Potassium 100 mg PO DAILY Vortioxetine Hydrobromide [Trintellix] 5 mg PO DAILY Primidone [Mysoline] 50 mg PO HS Ipratropium-Albuterol Nebulize [Duoneb 0.5 mg-3 mg/3 ml Soln] 3 ml INHALATION RT-QID Famotidine [Pepcid] 20 mg PO BID Omeprazole 20 mg PO AC-BID rOPINIRole HCL [Requip] 0.5 mg PO HS Discharge Medication List Omeprazole 40 mg PO HS 04/26/17 [History] Aspirin [Adult Low Dose Aspirin EC] 81 mg PO DAILY 10/02/18 [History] cloNIDine HCL [Catapres] 0.1 mg PO BID 10/02/18 [History] Glycopyrrolate/Formoterol Fum [Bevespi Aerosphere Inhaler] 1 puff INHALATION RT- DAILY PRN 03/20/19 [History] Losartan Potassium 100 mg PO DAILY 03/20/19 [History] Vortioxetine Hydrobromide [Trintellix] 5 mg PO DAILY 03/20/19 [History] Primidone [Mysoline] 50 mg PO HS 05/12/19 [History] Famotidine [Pepcid] 20 mg PO BID 06/08/19 [History] Ipratropium-Albuterol Nebulize [Duoneb 0.5 mg-3 mg/3 ml Soln] 3 ml INHALATION RT-QID 06/08/19 [History] Omeprazole 20 mg PO AC-BID 06/08/19 [History] rOPINIRole HCL [Requip] 0.5 mg PO HS 07/22/19 [History] Cefuroxime Axetil [Ceftin] 500 mg PO BID 3 Days #6 tab 07/24/19 [Rx] predniSONE 10 mg PO DAILY #30 tab 07/24/19 [Rx] Follow up Appointment(s)/Referral(s): Tanya Sauer MD [STAFF PHYSICIAN] - 1 Week Ronal Rivas MD [Primary Care Provider] - 07/27/19 2:00 pm Patient Instructions/Handouts: Cefuroxime (By mouth), Prednisone (By mouth), Acute Bronchitis (ED), Dyspnea (DC) Discharge Disposition: HOME SELF-CARE
== END 2019-07-24 14:00 | disposition home or self-care (01) ==
LOC: EC 17:25 → 4MS4W 19:46
PROVIDERS: ADMIT Hospitalist; ATTEND Hospitalist
DX: J44.1 Chronic obstructive pulmonary disease with (acute) exacerbation (principal); A41.9 Sepsis, unspecified organism; K21.9 Gastro-esophageal reflux disease without esophagitis; I10 Essential (primary) hypertension; G60.9 Hereditary and idiopathic neuropathy, unspecified; E11.40 Type 2 diabetes mellitus with diabetic neuropathy, unspecified; G25.81 Restless legs syndrome; F32.9 Major depressive disorder, single episode, unspecified; F41.9 Anxiety disorder, unspecified; R63.4 Abnormal weight loss; M19.90 Unspecified osteoarthritis, unspecified site; E66.9 Obesity, unspecified; Z68.31 Body mass index [BMI] 31.0-31.9, adult; G47.30 Sleep apnea, unspecified; Z85.01 Personal history of malignant neoplasm of esophagus; Z87.891 Personal history of nicotine dependence; Z87.01 Personal history of pneumonia (recurrent); Z77.090 Contact with and (suspected) exposure to asbestos; Z79.82 Long term (current) use of aspirin; Z79.899 Other long term (current) drug therapy; Z80.0 Family history of malignant neoplasm of digestive organs; Z82.49 Family history of ischemic heart disease and other diseases of the circulatory system; Z83.2 Family history of diseases of the blood and blood-forming organs and certain disorders involving the immune mechanism
CPT/HCPCS: 96376; 96366 ×3; 96367 ×2; 96375 ×2; 96372 ×2; 96365; 99285; 36415; 94640 ×4; 94760; 93005; 80053; 83605; 84484; 85025; 85610; 85730; 81001; 87040; 87070; 87205; 87502; 71046 ×2; G0378 ×3; J2543; J2920 ×2; J2405; J0456; J1650 ×2; J0696 ×2; J1170

== ENCOUNTER → 2019-08-17 | Outpatient (CLI) | payer BC, MEDICARE ==
[2019-08-17 08:51] LABS: African American GFR (CKD) >90 (>60 ml/min/1.73 sqM); Blood Urea Nitrogen 18 mg/dL (9-20)
--- NOTE | 2019-08-17 10:18 | CT ---
EXAMINATION TYPE: CT chest w con DATE OF EXAM: 08/17/2019 COMPARISON: 06/11/2019 HISTORY: Esophageal cancer CT DLP: 778 mGycm, Automated exposure control for dose reduction was used. CONTRAST: Performed injected with 100 mL of Isovue 300. TECHNIQUE: Axial images were obtained at 5 mm thick sections. Reconstructed images are reviewed on [employer] computer in the coronal plane. FINDINGS: Portion of the thyroid visualized is normal. No suspicious lung nodules are present. There is a small area of pneumonitis within the left mid nate g. Series 4 image 25 Gastric pull-through is present. No enlarged mediastinal or hilar adenopathy is evident. Few shoddy lymph nodes are present. The asce nding aorta diameter at the level of the main pulmonary artery is 3.7 cm. The main pulmonary artery diameter at the bifurcation is 3.[address] sections are obtained through the upper abdomen. The samples of the right adrenal gland me asuring 1.2 cm transverse dimension. IMPRESSIONS: 1. No suspicious changes to suggest metastatic disease. 2. Slight prominence of the right adrenal gland. Stable
== END | disposition home or self-care (01) ==
LOC: RADCTMAIN 08:17
PROVIDERS: ATTEND Thoracic Surgery (Cardiothoracic Vascular Surgery)
DX: C15.5 Malignant neoplasm of lower third of esophagus (principal)
CPT/HCPCS: 82565; 84520; 71260; 36415; Q9967

== ENCOUNTER → 2019-11-09 | Outpatient (CLI) | payer BC ==
[2019-11-09 14:09] LABS: Hemoglobin A1C 6.1 % (4.0-6.0)
== END | disposition home or self-care (01) ==
LOC: LABWHC1 07:20
PROVIDERS: ATTEND Psychiatry & Neurology Neurology
DX: G25.0 Essential tremor (principal)
CPT/HCPCS: 36415; 82947; 83036

== ENCOUNTER → 2020-02-29 | Outpatient (CLI) | payer BC ==
--- NOTE | 2020-02-29 08:56 | US ---
EXAMINATION TYPE: US prostate transrectal DATE OF EXAM: 02/29/2020 COMPARISON: CLINICAL HISTORY: R97.20 elevated PSA. Elevated PSA level. No CHAD. No urinary symptoms. Hx esophag eal cancer. This examination was performed using the transrectal probe. EXAM MEASUREMENTS: Gland Size: 6.2 x 5.2 x 4.1 cm Volume: 69.59 ml Predicted PSA: 8.4 Actual PSA (if available):33.2 Prostate appearing enlarged in size. Peripheral zone appears heterogenous with no prominent masses v isualized. IMPRESSION: 1. Discordant actual PSA and predicted PSA with peripheral zone heterogeneity particularly on the lef t. Suspect underlying malignancy. Tissue diagnosis is advised. Predicted PSA = volume x 0.12 ng/ml Calculated Volume = 0.5236 x L x W x H
== END | disposition home or self-care (01) ==
LOC: RADUSWWP 08:05
PROVIDERS: ATTEND Nurse Practitioner Family
DX: R97.20 Elevated prostate specific antigen [PSA] (principal)
CPT/HCPCS: 76872

== ENCOUNTER → 2020-03-29 | Outpatient (CLI) | payer BC ==
[2020-03-29 11:56] LABS: African American GFR (CKD) >90 (>60 ml/min/1.73 sqM); Blood Urea Nitrogen 23 mg/dL (9-20); Non-African American GFR(CKD) >90 (>60 ml/min/1.73 sqM)
--- NOTE | 2020-03-29 13:31 | CT ---
EXAMINATION TYPE: CT abdomen pelvis w con DATE OF EXAM: 03/29/2020 COMPARISON: 08/27/2016 HISTORY: New Diagnosis of prostate cancer. CT DLP: 1552.7 mGycm Automated exposure control for dose reduction was used. CONTRAST: CT scan of the abdomen pelvis is performed with IV Contrast, patient injected with 100 mL of Isovue 3 00. FINDINGS- LUNG BASES-there is a large hiatal hernia with virtually the entire stomach within in the thoracic ca vity and adjacent areas of compressive atelectasis in the right hemithorax. LIVER/GB- No gross abnormality is appreciated. PANCREAS- No gross abnormality is seen. SPLEEN- No gross abnormality is seen. ADRENALS- No gross abnormality is seen. KIDNEYS/BLADDER- no hydronephrosis nephrolithiasis or renal mass. BOWEL-diverticulosis of the colon.. LYMPH NODES- No greater than 1cm abdominal or pelvic lymph nodes areappreciated. OSSEOUS STRUCTURES-there is a sclerotic lesion involving the L4 vertebral body. Bilateral spondylolys is of L5 with grade 1 anterolisthesis and multilevel degenerative disc disease. Additional sclerotic focus involving the lower left rib is too small to characterize. OTHER- fat-containing anterior abdominal wall hernia. Prostate is enlarged. IMPRESSION- 1. Large intrathoracic hiatal hernia as discussed above. 2. Sclerotic lesion L4 recommend bone scan. 3. Mild prominence the prostate gland with no pathologic adenopathy.
--- NOTE | 2020-03-29 14:49 | NM ---
EXAMINATION TYPE: NM bone scan whole body DATE OF EXAM: 03/29/2020 COMPARISON: CT abdomen pelvis same date HISTORY: Prostate carcinoma Delayed whole-body scanning was performed following the injection of 25.1 mCi Tc 99m MDP. Images acq uired 3 hours post injection. FINDINGS: Soft tissue uptake is normal. Photopenic area at the right knee likely due to postop knee arthroplast y, uptake along the tibial component may be due to stress changes, correlate to exclude loosening. Up take within the ankles, knees, hands and wrists, elbows, shoulders and sternoclavicular joints is lik lenore degenerative. No areas of abnormal increased or decreased uptake to suggest metastatic disease. IMPRESSION: Degenerative changes are likely. Findings of the right knee prosthesis as described. Metastatic disea se is not evident.
--- NOTE | 2020-03-29 15:08 | XR ---
EXAMINATION TYPE: XR chest 2V DATE OF EXAM: 03/29/2020 COMPARISON: Prior chest 07/23/2019 HISTORY: Prostate cancer TECHNIQUE: Frontal and lateral views of the chest are obtained. FINDINGS: Cardiac mediastinal silhouette shows a similar appearance, there is gastric pull-through c hange. Postop change noted to the right shoulder. No evident pneumothorax or pleural effusion. No angelina dent airspace disease. IMPRESSION: Postop changes. No acute abnormalities evident.
== END | disposition home or self-care (01) ==
LOC: RADNMMAIN 10:43
PROVIDERS: ATTEND Urology
DX: K44.9 Diaphragmatic hernia without obstruction or gangrene (principal); Z96.651 Presence of right artificial knee joint; Z98.890 Other specified postprocedural states; C61 Malignant neoplasm of prostate
CPT/HCPCS: 82565; 84520; 71046; 74177; 78306; 36415; A9503; Q9967

== ENCOUNTER → 2020-03-30 | Outpatient (CLI) | payer BC ==
--- NOTE | 2020-03-30 13:58 | XR ---
Left RIBS HISTORY: Prostate cancer Correlation to bone scan 03/29/2020 4 views left RIBS No evident displaced rib fracture. Bone mineralization is maintained. Lower ribs are somewhat obscure d. Retained contrast material present within the colon from patient's prior CT. IMPRESSION: No significant abnormality is evident.
--- NOTE | 2020-03-30 14:01 | XR ---
Lumbosacral spine history: Prostate cancer 5 views of lumbosacral spine There is spondylolysis bilaterally at L5. Anterolisthesis grade 1 present L5-S1. Proptosis is grade 1 L4-5. Loss of disc height present L4-5 and L5-S1 greater than L3-4. There is multilevel spondylosis. Lumbar vertebral bodies show preserved height. Bone mineralization is maintained. Apical scarring va scular calcifications present in the aortoiliac distribution. IMPRESSION: Spondylolisthesis, spondylolysis, degenerative disc disease.
== END | disposition home or self-care (01) ==
LOC: RADXRMAIN 11:40
PROVIDERS: ATTEND Urology
DX: M43.17 Spondylolisthesis, lumbosacral region (principal); M51.37 Other intervertebral disc degeneration, lumbosacral region; C61 Malignant neoplasm of prostate
CPT/HCPCS: 72110

== ENCOUNTER → 2020-06-03 | Outpatient (CLI) | payer MEDICARE ==
--- NOTE | 2020-06-05 19:25 | CT ---
EXAMINATION TYPE: CT ChestAbdPelvis wo con DATE OF EXAM: 06/03/2020 COMPARISON: CT abdomen pelvis 03/29/2020. Nuclear medicine bone scan 03/29/2020. HISTORY: Prostate cancer. CT DLP: 1190.9 mGycm. Automated Exposure Control for Dose Reduction was Utilized. TECHNIQUE: CT scan of the thorax, abdomen and pelvis is performed without IV contrast. FINDINGS: Lack of intravenous contrast limits evaluation of solid and hollow visceral metastatic disease. LUNGS: The lungs are grossly clear, there is no concerning parenchymal mass or nodule identified. T here is no pleural effusion or pneumothorax seen. The tracheobronchial tree is patent. SOFT TISSUE/MEDIASTINUM: Redemonstrated gastric pull-through. No evidence of axillary, mediastinal, o r hilar lymphadenopathy. Cardiac size normal. Calcified coronary artery disease and calcified atheros clerotic disease of the thoracic aorta. No pericardial effusion is seen. LIVER/GB: Normal attenuation and size of the liver. No intrahepatic or extrahepatic biliary ductal di latation. PANCREAS: No peripancreatic stranding. SPLEEN: Not enlarged. ADRENALS: No nodules. KIDNEYS: No urolithiasis or hydronephrosis. BOWEL: No evidence of bowel obstruction. There is colonic diverticulosis. No evidence of acute diver ticulitis. PERITONEUM: No pneumoperitoneum or free fluid. Fat-containing right ventral abdominal wall hernia. PELVIS: Unremarkable unenhanced prostate and urinary bladder. LYMPH NODES: No abdominal pelvic lymphadenopathy. VASCULATURE: No abdominal aortic aneurysm. Moderate calcified atherosclerotic disease. OSSEOUS STRUCTURES: No aggressive osseous destructive lesion. Unchanged sclerotic focus of the L4 bandar tebral body likely benign bone island. IMPRESSION: No evidence of metastatic prostate cancer of the chest, abdomen, or pelvis within limits of noncontrast CT examination.
== END | disposition home or self-care (01) ==
LOC: RADCTMAIN 08:40
PROVIDERS: ATTEND Urology
DX: C61 Malignant neoplasm of prostate (principal)
CPT/HCPCS: 71250; 74176

== ENCOUNTER → 2020-08-04 | Outpatient (CLI) | payer MEDICARE ==
[2020-08-04 11:51] LABS: Basophils % (A) 0 %; Eosinophils # (A) 0.3 k/uL (0-0.7); Eosinophils % (A) 3 %; HCT 45.8 % (39.0-53.0); HGB 14.4 gm/dL (13.0-17.5); Lymphocytes # (A) 1.2 k/uL (1.0-4.8); Lymphocytes % (A) 15 %; MCH 28.9 pg (25.0-35.0); MCHC 31.5 g/dL (31.0-37.0); MCV 91.9 fL (80.0-100.0); Mean Platelet Volume 6.8; Monocytes # (A) 0.4 k/uL (0-1.0); Monocytes % (A) 6 %; Neutrophils # (A) 5.6 k/uL (1.3-7.7); Neutrophils % (A) 74 %; Platelet Count 233 k/uL (150-450); RBC 4.99 m/uL (4.30-5.90); RDW 14.2 % (11.5-15.5); WBC 7.5 k/uL (3.8-10.6)
[2020-08-04 12:00] LABS: African American GFR (CKD) >90 (>60 ml/min/1.73 sqM); Anion Gap 6 mmol/L; Blood Urea Nitrogen 23 mg/dL (9-20); Calcium 9.4 mg/dL (8.4-10.2); Carbon Dioxide 28 mmol/L (22-30); Chloride 103 mmol/L (98-107); Glucose 109 mg/dL (74-99); Non-African American GFR(CKD) >90 (>60 ml/min/1.73 sqM); Potassium 4.7 mmol/L (3.5-5.1); Sodium 137 mmol/L (137-145)
--- NOTE | 2020-08-04 15:48 | XR ---
EXAMINATION TYPE: XR chest 2V DATE OF EXAM: 08/04/2020 CLINICAL HISTORY: Preoperative. Prostate cancer. History of COPD and gastric pull-through. TECHNIQUE: Frontal and lateral views of the chest are obtained. COMPARISON: CT chest 06/03/2020. FINDINGS: Density of the posteromedial right chest consistent with gastric pull-through. The cardiom ediastinal silhouette is within normal limits for size. Pulmonary vasculature is normal. There is no focal air space opacity, pleural effusion, or pneumothorax seen. The osseous structures are intact. IMPRESSION: No acute cardiopulmonary process.
== END | disposition home or self-care (01) ==
LOC: LABPAT 09:47
PROVIDERS: ATTEND Urology
DX: Z01.818 Encounter for other preprocedural examination (principal); C61 Malignant neoplasm of prostate; R58 Hemorrhage, not elsewhere classified; R05 Cough
CPT/HCPCS: 36415; 71046; 80048; 85025

== ENCOUNTER 2020-08-11 09:51 | Observation (INO) | payer MEDICARE ==
--- NOTE | 2020-08-10 09:44 | P.HPIHPCON ---
History of Present Illness H&P Date: 08/11/20 Chief Complaint: Prostate Cancer Mr Narvaez is 65 yo male with hx of aury 9 prostate cancer. Imaging initially showed a potential metastatic lesion at L4. He was subsequently started on Lupron and repeat imaging demonstrated the lesion, despite his decrease in PSA. The lesion appeared to be more of a bone island rather than a metastatic lesion. At this time I discussed with him the treatment option which includes external beam radiation therapy versus robotic prostatectomy. I discussed with him the risk and benefit of each approach. Of note he has severe LUTS and gross hematuria, he had a cystoscopy which was negative for bladder pathology. His symptoms appear to be more related to his prostate cancer. I discussed with him given his urinary symptoms he might benefit from surgical intervention for his prostate. Discussed given his aggressive pathology is at increased risk of complication which includes erectile dysfunction, urinary incontinence, and possible injury to the rectum. I also discussed with him given his history of ventral hernia, if he has significant adhesion then surgery might not be feasible. At that point he will need radiation to treat his prostate cancer. Also discussed potential that he will need radiation after surgery. He understood all the risk and agreed to proceed with a robotic prostatectomy and pelvic lymph node dissection Consent for Procedure: I have explained the operation/procedure to the patient, including the risks, benefits, side effects, alternative therapies (including not receiving the proposed treatment or service), the likelihood of the patient achieving his/her goals, and potential recuperation problems for the procedure/sedation/analgesia, as well as any blood products, if indicated. I also explained to the patient the risks, benefits and side effects of the alternatives, as well as the risks related to not receiving the proposed procedure, care, treatment, or services. - Constitutional Constitutional: Denies chills, Denies fever - Cardiovascular Cardiovascular: Denies chest pain, Denies shortness of breath - Respiratory Respiratory: Denies cough, Denies 7 - Gastrointestinal Gastrointestinal: Denies abdominal pain, Denies diarrhea, Denies nausea, Denies vomiting - Genitourinary (Female) Genitourinary: Reports hematuria - Musculoskeletal Musculoskeletal: Denies myalgias - Neurological Neurological: Denies numbness, Denies weakness Past Medical History Past Medical History: Cancer, COPD, Diabetes Mellitus, GERD/Reflux, Hyperli pidemia, Hypertension, Osteoarthritis (OA), Sleep Apnea/CPAP/BIPAP Additional Past Medical History / Comment(s): Neuropathy, hx esophageal cancer treated with surgery - 2009, past hx of sleep apnea and diabetes but none now after 150 pound weight loss, tremors. History of Any Multi-Drug Resistant Organisms: None Reported Past Surgical History: Appendectomy, Hernia Repair, Joint Replacement, Orthopedic Surgery Additional Past Surgical History / Comment(s): Bilateral elbow, bilateral wrist carpal tunnel, bilateral rotator cuff surgery, right knee arthroscopy, right knee replacement, surgery for esophageal cancer (removed part of esophagus and removed part of stomach making it into carrot shape per patient), hernia repair X3. Past Anesthesia/Blood Transfusion Reactions: Previous Problems w/ Anesthesia Additional Past Anesthesia/Blood Transfusion Reaction / Comment(s): "Cannot lay flat- stomach acid will come out my nose." Past Psychological History: Anxiety, Depression Smoking Status: Former smoker Past Alcohol Use History: Rare Additional Past Alcohol Use History / Comment(s): Patient was a smoker one pack per day for 10 years and quit over 32 yrs ago. Past Drug Use History: None Reported - Past Family History Father Family Medical History: Cancer Additional Family Medical History / Comment(s): COLON Cancer. Mother Family Medical History: Cancer, Deep Vein Thrombosis (DVT) Additional Family Medical History / Comment(s): Brain aneurysm. Medications and Allergies Home Medications Medication Instructions Recorded Confirmed Type Omeprazole 40 mg PO HS 04/26/17 08/09/20 History Aspirin [Adult Low Dose Aspirin EC] 81 mg PO DAILY 10/02/18 08/09/20 History cloNIDine HCL [Catapres] 0.1 mg PO BID 10/02/18 08/09/20 History Glycopyrrolate/Formoterol Fum 1 puff INHALATION RT-DAILY PRN 03/20/19 08/09/20 History [Bevespi Aerosphere Inhaler] Losartan Potassium 100 mg PO QAM 03/20/19 08/09/20 History Famotidine [Pepcid] 20 mg PO BID 06/08/19 08/09/20 History Ipratropium-Albuterol Nebulize 3 ml INHALATION DIRECTED MDD 5x 06/08/19 08/09/20 History [Duoneb 0.5 mg-3 mg/3 ml Soln] daily Omeprazole 20 mg PO AC-BID 06/08/19 08/09/20 History rOPINIRole HCL [Requip] 1 mg PO HS 07/22/19 08/09/20 History Calcium 1,000 mg PO DAILY 08/09/20 08/09/20 History Cholecalciferol [Vitamin D3 (25 1,000 unit PO DAILY 08/09/20 08/09/20 History Mcg = 1000 Iu)] Allergies Allergy/AdvReac Type Severity Reaction Status Date / Time No Known Allergies Allergy Verified 08/09/20 10:17 Surgical - Exam - General well developed, well nourished, no distress, no pain - Eyes PERRL, normal ocular movement - Respiratory normal expansion, normal respiratory effort - Abdomen Abdomen: soft, non tender - Psychiatric oriented to time, oriented to person, oriented to place Assessment and Plan Assessment: 65 yo male with aury 9 prostate cancer -OR for robotic prostatectomy and PLND
[~2020-08-11 09:51] MED LIST changes: -ACETAMINOPHEN TAB 500 MG TAB PO ONE; -DEXAMETHASONE SOD PHOSPHATE 10 MG/ML 1 ML VIAL IV ONE; +HEPARIN SODIUM,PORCINE 5,000 UNIT/ML 1 ML VIAL SQ ONE; -LACTATED RINGERS 1,000 ML IV SCH; -LIDOCAINE 1% 20 ML VIAL (10MG/ML) FOR IV START INTRADERMA PRN; -MELOXICAM 7.5 MG TAB PO ONE; -MIDAZOLAM (PF) 2 MG/2 ML VIAL IV PRN; -ONDANSETRON 4 MG/2 ML VIAL IVP ONE; -ROPIVACAINE 246.25 MG, EPINEPHrine 0.5 MG, KETOROLAC 30 MG, cloNIDine HCL/PF 80 MCG, WA... MISCELLANE ONE; -SCOPOLAMINE 1.5MG/72HR PATCH TRANSDERM ONE; -TRANEXAMIC ACID 1,000 MG in SODIUM CHLORIDE 0.9% 50 ML IVPB ONE; -ceFAZolin IN SWFI 2 GM/20 ML SYRINGE IVP ONE
[2020-08-11] MEDS ORDERED: IPRATROPIUM-ALBUTEROL 3 ML NEB INHALATION STA (10:28)
[2020-08-11] MEDS: LACTATED RINGERS 1,000 ML IV SCH ×2 (10:33→10:52)
[2020-08-11 10:51] LABS: Partial Thromboplastin Time 25.4 sec (22.0-30.0); Prothrombin Time 10.1 sec (9.0-12.0)
[2020-08-11] MEDS: ONDANSETRON 4 MG/2 ML VIAL IVP ONE ×2 (11:18→18:49)
[2020-08-11] MEDS: DEXAMETHASONE SOD PHOSPHATE 10 MG/ML 1 ML VIAL IV ONE ×2 (11:18→18:47)
[2020-08-11 11:23] LABS: Appearance,Urine Clear (Clear); Bilirubin,Urine Negative (Negative); Blood,Urine Negative (Negative); Color,Urine Yellow; Glucose,Urine (UA) Negative (Negative); Ketones,Urine Negative (Negative); Leukocyte Esterase,Urine Negative (Negative); Nitrite,Urine Negative (Negative); Protein,Urine Negative (Negative); Specific Gravity,Urine 1.015 (1.001-1.035); Urobilinogen,Urine <2.0 mg/dL (<2.0)
[2020-08-11] MEDS ORDERED: HYDROmorphone (PF) 1 MG/ML ONE (11:59)
[2020-08-11] MEDS ORDERED: ePHEDrine SULFATE/0.9% NACL/PF 50 MG/5 ML SYRINGE IV ONE (11:59)
[2020-08-11] MEDS ORDERED: SUCCINYLCHOLINE CHLORIDE 100 MG/5 ML SYR IV ONE (11:59)
[2020-08-11] MEDS ORDERED: fentaNYL (PF) 50 MCG/ML 2 ML AMP ONE (11:59)
[2020-08-11] MEDS ORDERED: MIDAZOLAM 2 MG/2 ML VIAL ONE (11:59)
[2020-08-11] MEDS ORDERED: LIDOCAINE 1% INJ 10MG/ML (20 ML MDV) ONE (11:59)
[2020-08-11] MEDS ORDERED: GLYCOPYRROLATE 0.2 MG/ML 2 ML VIAL ONE (11:59)
[2020-08-11] MEDS ORDERED: ALBUTEROL INHALER 60 PUFF/8 GM INHALER (MHU) INHALATION ONE (11:59)
[2020-08-11] MEDS ORDERED: ROCURONIUM 10 MG/ML (10 ML VIAL) IV ONE (11:59)
[2020-08-11] MEDS ORDERED: NEOSTIGMINE 1 MG/ML 10 ML VIAL ONE (11:59)
[2020-08-11] MEDS ORDERED: PHENYLEPHRINE-0.9% NACL SYG 1 MG/10 ML SYRINGE ONE (11:59)
[2020-08-11] MEDS ORDERED: PROPOFOL 10 MG/ML 20 ML VIAL IV ONE (11:59)
[2020-08-11] MEDS ORDERED: BUPIVACAINE (PF) 0.25% 30 ML VIAL SQ ONE ×2 (13:09→16:44)
[2020-08-11] MEDS ORDERED: LACTATED RINGERS 1,000 ML IV ONE (16:31)
--- NOTE | 2020-08-11 16:51 | P.OP ---
Date of Procedure: 08/11/20 Preoperative Diagnosis: Prostate cancer Postoperative Diagnosis: Same Procedure(s) Performed: Robotic prostatectomy, bilateral pelvic lymph node dissection, bilateral stent placement Implants: 6-Maori by 26 cm stent bilaterally Anesthesia: JERICHO Surgeon: Giorgio Myers Clerk Carrier #1: Lorraine Douglass Estimated Blood Loss (ml): 100 Pathology: other (Prostate, bilateral seminal vesicle, bilateral pelvic lymph nodes) Condition: stable Disposition: PACU Indications for Procedure: Mr Narvaez is 65 yo male with hx of aury 9 prostate cancer. Imaging initially showed a potential metastatic lesion at L4. He was subsequently started on Lupron and repeat imaging demonstrated the lesion, despite his decrease in PSA. The lesion appeared to be more of a bone island rather than a metastatic lesion. At this time I discussed with him the treatment option which includes external beam radiation therapy versus robotic prostatectomy. I discussed with him the risk and benefit of each approach. Of note he has severe LUTS and gross h ematuria, he had a cystoscopy which was negative for bladder pathology. His symptoms appear to be more related to his prostate cancer. I discussed with him given his urinary symptoms he might benefit from surgical intervention for his prostate. Discussed given his aggressive pathology is at increased risk of complication which includes erectile dysfunction, urinary incontinence, and possible injury to the rectum. I also discussed with him given his history of ventral hernia, if he has significant adhesion then surgery might not be feasible. At that point he will need radiation to treat his prostate cancer. Also discussed potential that he will need radiation after surgery. He understood all the risk and agreed to proceed with a robotic prostatectomy and pelvic lymph node dissection Operative Findings: Tumor adhered to the rectum, able to free up using sharp dissection. Evidence of tumor along the prostate base with possible extension into the bladder neck, thus posterior incision along the bladder neck was moved closer to the trigone. Bilateral seminal vesicles were fibrosed concerning for invasion from prostate cancer Description of Procedure: After preoperative antibiotics were started, the patient was taken to the operating room. Anesthesia was induced and the patient was placed in a supine position with adequate padding of the pressure points, shoulders, back, legs and arms. He was then prepped and draped in the standard fashion. A critical pause was performed using two patient identifiers. A 16F griggs catheter was placed to gravity drainage. a supraumbilical incision was made. The subcutaneous tissue was dissected down to the fascia. The fascia was entered sharply. omentum adhered to the abdominal wall was released. A mini gel point was placed. A pneumo-peritoneum was created Under direct vision a 8mm robotic ports was placed lateral to each rectus slightly below the camera port. The left iliac fossa 8mm port was placed. The right insurance administrative assistant right iliac fossa 12mm port and right paramedian 5mm portwere placed. After the patient was placed in the trendelenberg position, the robot was then docked to the 8mm robotic ports and then each robotic arm and tower was checked in relation to the patient's legs and hands to avoid inadvertent compression. The peritoneal cavity was inspected. adhesion involving the sigmoid were taken down along the left lower quadrant, of note patient had significant diverticulosis An inverted U-shaped incision began laterally to the left medial umbilical ligament and extended high across the midline to the right umbilical ligament. The limbs of the "U" extended to the level of the vasa on both sides. We next developed the preperitoneal space and the space of Retzius. Cautery was used to dissected the bladder away from the prostate. Patient had fibrosed tissue along the bladder neck concerning for invasion from prostate cancer thus the incision was moved further away from the prostate to obtain adequate margins After the anterior bladder neck was incised and the bladder entered the the posterior bladder neck was exposed and the ureteral orifces identified, , given the concern for bladder neck invasion the incision was close to the ureteral orifice ease but the orifices were not incised. The incision was approximately 1 cm away from both ureteral orifice ease. Both of them showed evidence of clear urine reflux. The posterior bladder neck was then incised and dissected away from the prostate. The vas and the seminal vesicles w ere now exposed. Both of the bilateral seminal vesicle and the vas were fibrosed and concerning for evidence of invasion from the prostate cancer. No surgical plane was identified posterior to the seminal vesicle. Bilateral serosa were slowly excised and released. The posterior layer of the Denonvillier's fascia was incised to enter neftali the plane between prostate and perirectal fat. Of note patient prostate was adhered to the rectum bilaterally, But a plane was developed sharply. Each lateral pedicle was controlled with clips and cautery for hemostasis. Nerve preservation was performed wide nerve sparing was performed on the right and wide was performed on the left.. The puboprostatic ligament was incised where it inserted into the apex of the prostate and a plane between urethra and dorsal venous complex developed to expose the anterior urethral surface. The anterior wall of the urethra was transected with the cut setting a few millimeters distal to the apex of the prostate. The dorsal vein was ligated using 3-0 V lock bilateral obturator external iliac, internal iliac lymph node packets were carefully dissected after careful visualization of the hypogastric artery and obturator nerve. The bilateral ureters were also identified and not injured during the lymph node dissections There was careful attention paid to hemostasis with judicious use of cautery. Given the close proximity of the ureteral orifices to the edge of the bladder neck decision was made to proceed with bilateral stent placements. A sensor wire was advanced through the patient penis advanced up the right ureteral orifice. A ureteral stent was passed over the wire, a. Repeat procedure was also performed on the left and a left stent was also placed The urethrovesical anastomosis was performed . the posterior denovillers was reapproximated using 3-0 V lock. A 9and 9 inch 3-0 V-Lock suture was used to anastomose the urethra and bladder, starting at the 6:00 posterior position. Mucosa was secured in every stitch, to ensure a mucosa to mucosa anastomosis. The stitch was regularly cinched and the anastomosis tightened. Care was taken to not violate the ureteral orifices, or accidentally suture the stents. The Griggs catheter was advanced, the bladder filled, and the anastomosis was tested, as described above. Anastomsis was watertight at 150 mL. hemostatic agents were applied to the bundle. The periumbilical fascia was closed with 1-0-PDS suture in figure of eight fashion. All ports were closed with a subcuticular 4-0 monocryl and Dermabond. Sponge, instrument, and needle counts were correct at the end of the case x2. All specimens including prostate and lymph nodes were sent to pathology for diagnosis and will be available in a week. The patient tolerated the surgery well and without complication. He awoke without difficulty and was taken to the recovery room in stable condition
[2020-08-11] MEDS ORDERED: HYDROcodone/APAP 5-325MG 1 EACH TAB PO PRN (16:52)
[2020-08-11] MEDS ORDERED: HYDROmorphone 1 MG/ML 1 ML SYRINGE IVP ONE ×2 (17:41)
[2020-08-11] MEDS: KETOROLAC 15 MG/ML 1 ML VIAL IVP PRN (18:11)
[2020-08-11] MEDS ORDERED: PANTOPRAZOLE 40 MG TABLET PO SCH ×2 (18:15→21:00)
[2020-08-11] MEDS: IPRATROPIUM-ALBUTEROL 3 ML NEB INHALATION PRN (19:47)
[2020-08-11] MEDS: D5-0.45% NACL WITH KCL 20MEQ/L 1,000 ML IV SCH (22:08)
[2020-08-11] MEDS: FAMOTIDINE 20 MG TAB PO SCH (22:08)
[2020-08-11] MEDS: cloNIDine HCL 0.1 MG TAB PO SCH (22:09)
[2020-08-12] MEDS: KETOROLAC 15 MG/ML 1 ML VIAL IVP PRN ×2 (00:45→06:14)
[2020-08-12 02:21] VITALS: TEMP 97.6
[2020-08-12] MEDS: D5-0.45% NACL WITH KCL 20MEQ/L 1,000 ML IV SCH (05:14)
[2020-08-12] MEDS ORDERED: PANTOPRAZOLE 40 MG TABLET PO SCH (07:30)
[2020-08-12] MEDS: cloNIDine HCL 0.1 MG TAB PO SCH (07:34)
[2020-08-12] MEDS: FAMOTIDINE 20 MG TAB PO SCH (07:34)
[2020-08-12] MEDS: IPRATROPIUM-ALBUTEROL 3 ML NEB INHALATION PRN ×2 (07:45→11:35)
[2020-08-12] MEDS ORDERED: LOSARTAN 50 MG TAB PO SCH (09:00)
[2020-08-12 12:34] VITALS: BMI 29.2
[2020-08-12 12:48] VITALS: BP 117/72; PULSE 72; RESP 16
--- NOTE | 2020-08-14 16:05 | P.DS ---
Providers Date of admission: 08/12/20 11:39 Expected date of discharge: 08/12/20 Attending physician: Giorgio Myers MD Primary care physician: [facility] Course: This is 65-year-old male with history of Jamilah 9 prostate cancer. He underwent a robotic-assisted prostatectomy and pelvic lymph node dissection and bilateral ureteral stent placement on August 11. Please see op note dated 08/11 for full surgery detail. The patient did well in the postoperative period. He was discharged home on postoperative day #1 with the Paul catheter. at time of discharge he was tolerating a diet, ambulating, pain is well-controlled. His abdominal exam was benign Plan - Discharge Summary Discharge Rx Participant: Yes New Discharge Prescriptions: New Ciprofloxacin HCl [Cipro] 250 mg PO Q12HR 3 Days #6 tab Hydrocodone/Acetaminophen [[place] 5-325] 1 each PO Q4HR PRN #6 tab PRN Reason: Pain Ketorolac [Toradol] 10 mg PO Q6HR PRN #15 tab PRN Reason: Pain No Action Omeprazole 40 mg PO HS cloNIDine HCL [Catapres] 0.1 mg PO BID Aspirin [Adult Low Dose Aspirin EC] 81 mg PO DAILY Glycopyrrolate/Formoterol Fum [Bevespi Aerosphere Inhaler] 1 puff INHALATION RT-DAILY PRN PRN Reason: Dyspnea Losartan Potassium 100 mg PO QAM Ipratropium-Albuterol Nebulize [Duoneb 0.5 mg-3 mg/3 ml Soln] 3 ml INHALATION DIRECTED MDD 5x daily Famotidine [Pepcid] 20 mg PO BID Omeprazole 20 mg PO AC-BID rOPINIRole HCL [Requip] 1 mg PO HS Cholecalciferol [Vitamin D3 (25 Mcg = 1000 Iu)] 1,000 unit PO DAILY Calcium 1,000 mg PO DAILY Discharge Medication List Omeprazole 40 mg PO HS 04/26/17 [History] Aspirin [Adult Low Dose Aspirin EC] 81 mg PO DAILY 10/02/18 [History] cloNIDine HCL [Catapres] 0.1 mg PO BID 10/02/18 [History] Glycopyrrolate/Formoterol Fum [Bevespi Aerosphere Inhaler] 1 puff INHALATION RT- DAILY PRN 03/20/19 [History] Losartan Potassium 100 mg PO QAM 03/20/19 [History] Famotidine [Pepcid] 20 mg PO BID 06/08/19 [History] Ipratropium-Albuterol Nebulize [Duoneb 0.5 mg-3 mg/3 ml Soln] 3 ml INHALATION DIRECTED MDD 5x daily 06/08/19 [History] Omeprazole 20 mg PO AC-BID 06/08/19 [History] rOPINIRole HCL [Requip] 1 mg PO HS 07/22/19 [History] Calcium 1,000 mg PO DAILY 08/09/20 [History] Cholecalciferol [Vitamin D3 (25 Mcg = 1000 Iu)] 1,000 unit PO DAILY 08/09/20 [History] Ciprofloxacin HCl [Cipro] 250 mg PO Q12HR 3 Days #6 tab 08/12/20 [Rx] Hydrocodone/Acetaminophen [[place] 5-325] 1 each PO Q4HR PRN #6 tab 08/12/20 [Rx] Ketorolac [Toradol] 10 mg PO Q6HR PRN #15 tab 08/12/20 [Rx] Follow up Appointment(s)/Referral(s): Giorgio Myers MD [STAFF PHYSICIAN] - 08/23/20 9:40 am Patient Instructions/Handouts: Ciprofloxacin (By mouth), Hydrocodone/Acetaminophen (By mouth), Ketorolac (By mouth), Paul Catheter Placement and Care (DC), Surgical Site Infections (DC), Urinary Leg Bag (GEN), Robot Assisted Laparoscopic Prostatectomy (DC) Activity/Diet/Wound Care/Special Instructions: You may see some blood in the urine Drink plenty of fluid No heavy lifting or straining for 6 weeks You may shower but no baths Start taking the Cipro 1 day prior to your appointment Discharge Disposition: HOME SELF-CARE
== END 2020-08-12 15:23 | disposition home or self-care (01) ==
LOC: OR 09:51 → 6NMEDSUR 16:49 → OR 08-12 12:42
PROVIDERS: ADMIT Urology; ATTEND Urology
DX: C61 Malignant neoplasm of prostate (principal); R31.0 Gross hematuria; J44.9 Chronic obstructive pulmonary disease, unspecified; K21.9 Gastro-esophageal reflux disease without esophagitis; E78.5 Hyperlipidemia, unspecified; I10 Essential (primary) hypertension; M19.90 Unspecified osteoarthritis, unspecified site; R25.1 Tremor, unspecified; Z96.651 Presence of right artificial knee joint; Z98.890 Other specified postprocedural states; F41.9 Anxiety disorder, unspecified; F32.9 Major depressive disorder, single episode, unspecified; Z87.891 Personal history of nicotine dependence; Z85.01 Personal history of malignant neoplasm of esophagus; Z90.49 Acquired absence of other specified parts of digestive tract; Z80.0 Family history of malignant neoplasm of digestive organs; Z80.8 Family history of malignant neoplasm of other organs or systems; Z82.49 Family history of ischemic heart disease and other diseases of the circulatory system; Z79.82 Long term (current) use of aspirin; Z79.899 Other long term (current) drug therapy; G47.33 Obstructive sleep apnea (adult) (pediatric)
CPT/HCPCS: 94640 ×4; 86900; 86901; 85610; 85730; 86850; 81003; 88307; 88309; 55866; 38571; G0378; C2625; C1769; J2250; J1644; J1100; J2710; J0690; J2405; J2001; J3010; J1170; J1885 ×2; J2370; J0330; J2704

== ENCOUNTER → 2020-08-25 | Outpatient (CLI) | payer BC, MEDICARE ==
[2020-08-25 12:56] LABS: Basophils # (A) 0.1 k/uL (0-0.2); Basophils % (A) 1 %; Eosinophils # (A) 0.4 k/uL (0-0.7); Eosinophils % (A) 4 %; HCT 42.4 % (39.0-53.0); HGB 13.4 gm/dL (13.0-17.5); Lymphocytes # (A) 1.3 k/uL (1.0-4.8); Lymphocytes % (A) 14 %; MCH 28.5 pg (25.0-35.0); MCHC 31.6 g/dL (31.0-37.0); MCV 90.4 fL (80.0-100.0); Mean Platelet Volume 6.4; Monocytes # (A) 0.3 k/uL (0-1.0); Monocytes % (A) 3 %; Neutrophils # (A) 7.6 k/uL (1.3-7.7); Neutrophils % (A) 77 %; Platelet Count 366 k/uL (150-450); RBC 4.69 m/uL (4.30-5.90); RDW 13.8 % (11.5-15.5); WBC 9.8 k/uL (3.8-10.6)
[2020-08-25 13:16] LABS: ALT 23 U/L (4-49); AST 26 U/L (17-59); African American GFR (CKD) >90 (>60 ml/min/1.73 sqM); Albumin 3.4 g/dL (3.5-5.0); Alkaline Phosphatase 67 U/L (38-126); Anion Gap 5 mmol/L; Blood Urea Nitrogen 18 mg/dL (9-20); Calcium 8.8 mg/dL (8.4-10.2); Carbon Dioxide 30 mmol/L (22-30); Chloride 102 mmol/L (98-107); Glucose 108 mg/dL (74-99); Non-African American GFR(CKD) >90 (>60 ml/min/1.73 sqM); Potassium 4.6 mmol/L (3.5-5.1); Sodium 137 mmol/L (137-145); Total Bilirubin 0.5 mg/dL (0.2-1.3); Total Protein 6.2 g/dL (6.3-8.2)
[2020-08-25 14:26] LABS: Basophils % (A) 0 %; Eosinophils # (A) 0.5 k/uL (0-0.7); Eosinophils % (A) 5 %; HCT 41.4 % (39.0-53.0); HGB 13.2 gm/dL (13.0-17.5); Hypochromasia Slight; Lymphocytes # (A) 1.3 k/uL (1.0-4.8); Lymphocytes % (A) 13 %; MCH 29.2 pg (25.0-35.0); MCHC 31.9 g/dL (31.0-37.0); MCV 91.5 fL (80.0-100.0); Mean Platelet Volume 7.2; Monocytes # (A) 0.5 k/uL (0-1.0); Monocytes % (A) 5 %; Neutrophils # (A) 7.8 k/uL (1.3-7.7); Neutrophils % (A) 77 %; Platelet Count 379 k/uL (150-450); RBC 4.52 m/uL (4.30-5.90); RDW 13.4 % (11.5-15.5); WBC 10.2 k/uL (3.8-10.6)
[2020-08-25 14:36] LABS: ALT 23 U/L (4-49); AST 26 U/L (17-59); African American GFR (CKD) >90 (>60 ml/min/1.73 sqM); Albumin 3.4 g/dL (3.5-5.0); Alkaline Phosphatase 68 U/L (38-126); Anion Gap 4 mmol/L; Blood Urea Nitrogen 19 mg/dL (9-20); Calcium 8.8 mg/dL (8.4-10.2); Carbon Dioxide 32 mmol/L (22-30); Chloride 101 mmol/L (98-107); Glucose 114 mg/dL (74-99); Non-African American GFR(CKD) >90 (>60 ml/min/1.73 sqM); Potassium 4.7 mmol/L (3.5-5.1); Sodium 137 mmol/L (137-145); Total Bilirubin 0.5 mg/dL (0.2-1.3); Total Protein 6.1 g/dL (6.3-8.2)
--- NOTE | 2020-08-25 15:43 | CT ---
EXAMINATION TYPE: CT chest w con DATE OF EXAM: 08/25/2020 COMPARISON: 06/03/2020 HISTORY: 65-year-old male Malignant neoplasm of lower third esophagus TECHNIQUE: Contiguous axial scanning of the chest after the administration of 100 mL of Isovue 300. Coronal/sagittal reconstructions performed. CT DLP: 617mGycm. Automatic exposure control utilized for a dose reduction. FINDINGS: Heart normal size without pericardial effusion. Extensive three-vessel coronary artery calcifications are present in remarkable coronary artery disease. Ectatic ascending aorta at 3.7 cm. Conventional arch vessels branching anatomy. Ectatic upper descend ing thoracic aorta 3.0 cm. Some hypodense nodularity within the right thyroid lobe measuring up to 1.2 cm can be further evaluat ed with dedicated thyroid ultrasound. A few scattered nonenlarged mediastinal, right hilar, and subcarinal lymph nodes are unchanged. No th oracic lymph adenopathy by CT size criteria. Some strandy bibasilar atelectasis. No consolidation or pleural effusion. Postsurgical change of esophagectomy and gastric pull-through procedure. Visualized upper abdomen shows the proximal loops of the bilateral ureteral stents and a small midlin e fat-containing epigastric abdominal wall hernia measuring 5.9 cm wide and the abdominal wall defect measuring 2.5 cm wide. Bones: Mild anterior endplate spondylosis lower thoracic spine. Straightening of the normal thoracic kyphosis. IMPRESSION: 1. Status post esophagectomy and gastric pull-through procedure. No evidence for metastatic disease w ithin the thorax. 2. CAD with extensive three-vessel coronary artery calcifications. 3. A 1.2 cm right thyroid lobe nodule can be further evaluated with dedicated thyroid ultrasound. 4. Stable small to moderate-sized ventral epigastric midline abdominal wall hernia containing omental fat (5.9 cm wide).
== END | disposition home or self-care (01) ==
LOC: RADCTMAIN 10:56
PROVIDERS: ATTEND Thoracic Surgery (Cardiothoracic Vascular Surgery)
DX: I25.10 Atherosclerotic heart disease of native coronary artery without angina pectoris (principal); C15.5 Malignant neoplasm of lower third of esophagus; Z98.890 Other specified postprocedural states
CPT/HCPCS: 80053; 85025; 71260; 36415; Q9967

== ENCOUNTER → 2020-12-29 | Outpatient (CLI) | payer MEDICARE ==
[2020-12-29 22:02] LABS: Basophils # (A) 0.04 X 10*3/uL (0.00-0.10); Basophils % (A) 0.4 %; Eosinophils # (A) 0.21 X 10*3/uL (0.04-0.35); Eosinophils % (A) 2.2 %; HCT 43.1 % (39.6-50.0); HGB 13.2 g/dL (13.0-17.0); Lymphocytes # (A) 1.44 X 10*3/uL (0.90-5.00); Lymphocytes % (A) 14.8 %; MCH 27.3 pg (27.0-32.0); MCHC 30.6 g/dL (32.0-37.0); MCV 89.2 fL (80.0-97.0); Mean Platelet Volume 9.3 fL (9.5-12.2); Monocytes # (A) 0.79 X 10*3/uL (0.20-1.00); Monocytes % (A) 8.1 %; Neutrophils # (A) 7.21 X 10*3/uL (1.80-7.70); Neutrophils % (A) 74.2 %; Platelet Count 262 X 10*3/uL (140-440); RBC 4.83 X 10*6/uL (4.40-5.60); RDW 14.3 % (11.5-14.5); WBC 9.72 X 10*3/uL (4.50-10.00)
[2020-12-30 03:44] LABS: Albumin 4.2 g/dL (3.80-4.90); Albumin/Globulin Ratio 2.21 (1.60-3.17); BUN/Creat Ratio 37.14 Ratio (12.00-20.00); Calcium 9.3 mg/dL (8.7-10.3); Globulin 1.9 g/dL (1.6-3.3); Non-African American GFR(CKD) 98.3 (60.0-200.0); Potassium 4.5 mmol/L (3.5-5.5); Total Bilirubin 0.4 mg/dL (0.2-1.2); Total Protein 6.1 g/dL (6.2-8.2)
== END | disposition home or self-care (01) ==
LOC: LABWHC1 12:25
PROVIDERS: ATTEND Internal Medicine Critical Care Medicine
DX: R06.09 Other forms of dyspnea (principal)
CPT/HCPCS: 36415; 80053; 82550; 83519; 85025; 86255

== ENCOUNTER → 2021-01-27 | Outpatient (CLI) | payer MEDICARE ==
[2021-01-27 16:54] LABS: Calcium 9.3 mg/dL (8.7-10.3); Magnesium 2.1 mg/dL (1.5-2.4); Potassium 4.1 mmol/L (3.5-5.5)
== END | disposition home or self-care (01) ==
LOC: LABWHC1 07:13
PROVIDERS: ATTEND Psychiatry & Neurology Neurology
DX: G25.0 Essential tremor (principal); G62.9 Polyneuropathy, unspecified; G25.81 Restless legs syndrome
CPT/HCPCS: 36415; 82310; 82550; 82607; 82947; 83735; 84132

== ENCOUNTER → 2021-03-22 | Outpatient (CLI) | payer MEDICARE | END | disposition home or self-care (01) | LOC: LABWHC1 08:02 | PROVIDERS: ATTEND Psychiatry & Neurology Neurology | DX: R73.09 Other abnormal glucose (principal); Z79.899 Other long term (current) drug therapy | CPT/HCPCS: 36415; 82947 ==

== ENCOUNTER → 2021-05-22 | Outpatient (CLI) | payer MEDICARE ==
[2021-05-22 12:44] LABS: HCT 41.5 % (39.0-53.0); HGB 13.9 gm/dL (13.0-17.5); MCH 29.5 pg (25.0-35.0); MCHC 33.6 g/dL (31.0-37.0); Mean Platelet Volume 7.6; Platelet Count 270 k/uL (150-450); RBC 4.71 m/uL (4.30-5.90); RDW 14.3 % (11.5-15.5); WBC 9.2 k/uL (3.8-10.6)
[2021-05-22 12:51] LABS: ALT 17 U/L (4-49); AST 23 U/L (17-59); African American GFR (CKD) >90 (>60 ml/min/1.73 sqM); Albumin 3.8 g/dL (3.5-5.0); Alkaline Phosphatase 77 U/L (38-126); Anion Gap 8 mmol/L; Blood Urea Nitrogen 26 mg/dL (9-20); Calcium 9.3 mg/dL (8.4-10.2); Carbon Dioxide 25 mmol/L (22-30); Chloride 106 mmol/L (98-107); Glucose 110 mg/dL (74-99); Non-African American GFR(CKD) >90 (>60 ml/min/1.73 sqM); Potassium 4.5 mmol/L (3.5-5.1); Sodium 139 mmol/L (137-145); Total Bilirubin 0.4 mg/dL (0.2-1.3); Total Protein 6.4 g/dL (6.3-8.2)
[2021-05-22 13:07] LABS: INR 0.9 (<1.2); Prothrombin Time 10.1 sec (9.0-12.0)
[2021-05-22 13:26] LABS: Appearance,Urine Clear (Clear); Bilirubin,Urine Negative (Negative); Blood,Urine Negative (Negative); Color,Urine Yellow; Glucose,Urine (UA) Negative (Negative); Ketones,Urine Negative (Negative); Leukocyte Esterase,Urine Negative (Negative); Nitrite,Urine Negative (Negative); PH, Urine 6.5 (5.0-8.0); Protein,Urine Negative (Negative); Specific Gravity,Urine 1.027 (1.001-1.035)
== END | disposition home or self-care (01) ==
LOC: LABPAT 11:03
PROVIDERS: ATTEND Orthopaedic Surgery Sports Medicine
DX: Z01.818 Encounter for other preprocedural examination (principal); I45.10 Unspecified right bundle-branch block; R94.31 Abnormal electrocardiogram [ECG] [EKG]
CPT/HCPCS: 36415; 80053; 81003; 85027; 85610; 85730; 87070; 93005

== ENCOUNTER 2021-06-15 12:45 | Day surgery (SDC) | payer MEDICARE ==
[2021-05-25 14:39] VITALS: BMI 31.5
[~2021-06-15 12:45] MED LIST changes: +ACETAMINOPHEN TAB 500 MG TAB PO PRN; +DEXAMETHASONE SOD PHOSPHATE 4 MG/ML 1 ML VIAL IV ONE; +GABAPENTIN 300 MG CAP PO PRN; -HEPARIN SODIUM,PORCINE 5,000 UNIT/ML 1 ML VIAL SQ ONE; +LACTATED RINGERS 1,000 ML IV SCH; +MELOXICAM 7.5 MG TAB PO PRN; +MIDAZOLAM 2 MG/2 ML VIAL IV PRN; +ONDANSETRON 4 MG/2 ML VIAL IVP ONE; +ONDANSETRON 4 MG/2 ML VIAL IVP PRN; +TRANEXAMIC ACID 1,000 MG in SODIUM CHLORIDE 0.9% 100 ML IVPB PRN
[2021-06-15] MEDS ORDERED: TEMAZEPAM 15 MG CAP PO PRN (13:04)
[2021-06-15] MEDS ORDERED: hydrOXYzine pamoate 25 MG CAP PO PRN (13:04)
[2021-06-15] MEDS ORDERED: diphenhydrAMINE 25 MG CAP PO PRN (13:04)
[2021-06-15] MEDS ORDERED: ONDANSETRON 4 MG/2 ML VIAL IVP PRN (13:04)
[2021-06-15] MEDS ORDERED: HYDROmorphone 0.2 MG/1 ML SYRINGE IVP PRN (13:04)
[2021-06-15] MEDS ORDERED: METOCLOPRAMIDE 5 MG/ML 2 ML VIAL IVP PRN (13:04)
[2021-06-15] MEDS ORDERED: HYDROmorphone 0.5 MG/0.5 ML SYRINGE IVP PRN ×2 (13:04)
[2021-06-15] MEDS ORDERED: PROCHLORPERAZINE SUPPOSITORY 25 MG SUPP RECTAL PRN (13:04)
[2021-06-15] MEDS ORDERED: SENNOSIDES-DOCUSATE SODIUM 1 EACH TAB PO PRN (13:04)
[2021-06-15 13:33] LABS: Glucose,Whole Blood 97 mg/dL (75-99)
[2021-06-15] MEDS ORDERED: fentaNYL (PF) 50 MCG/ML 2 ML AMP IVP ONE (13:38)
[2021-06-15] MEDS: LACTATED RINGERS 1,000 ML IV SCH (13:49)
--- NOTE | 2021-06-15 14:13 | P.ANPRN ---
Procedure Note - Anesthesia - Nerve Block Performed Right Interscalene Single Time Out Performed: Yes (13:38) Date of Procedure: 06/15/21 (13:38) Procedure Start Time: :39 Procedure Stop Time: :44 Location of Patient: PreOp Indication: Acute Post-Operative Pain, Dx/Pain Location (Right shoulder), Requested by Surgeon Specifically requested for management of pain by DrDelonte: Amaury Pino Sedation Type: Sedate with meaningful contact maintained Preparation: Sterile Prep Position: Supine Catheter: None Needle Types: Pajunk Needle Gauge: 21 Ultrasound used to visualize needle placement: Yes Ultrasound used to observe medication spread: Yes Injectate: 0.5% Ropivacaine (see comment for volume) (20cc) Blood Aspirated: No Pain Paresthesia on Injection Noted: No Resistance on Injection: Normal Image Stored and Saved: Yes Events: Uneventful and Well Tolerated
[2021-06-15] MEDS ORDERED: TRANEXAMIC ACID 1,000 MG/10 ML VIAL ONE (15:10)
[2021-06-15] MEDS ORDERED: SODIUM CHLORIDE 0.9% 250 ML BAG ONE (15:10)
[2021-06-15] MEDS ORDERED: ROCURONIUM 10 MG/ML (5 ML VIAL) IV ONE (15:10)
[2021-06-15] MEDS ORDERED: GLYCOPYRROLATE 0.2 MG/ML 2 ML VIAL ONE (15:10)
[2021-06-15] MEDS ORDERED: DEXAMETHASONE SOD PHOSPHATE 4 MG/ML 1 ML VIAL ONE (15:10)
[2021-06-15] MEDS ORDERED: fentaNYL (PF) 50 MCG/ML 2 ML AMP ONE (15:10)
[2021-06-15] MEDS ORDERED: MIDAZOLAM 2 MG/2 ML VIAL ONE (15:10)
[2021-06-15] MEDS ORDERED: PROPOFOL 10 MG/ML 20 ML VIAL IV ONE (15:10)
[2021-06-15] MEDS ORDERED: NEOSTIGMINE 1 MG/ML 10 ML VIAL ONE (15:10)
[2021-06-15] MEDS ORDERED: PHENYLEPHRINE-0.9% NACL SYG 1,000 MCG/10 ML SYRINGE ONE (15:10)
[2021-06-15] MEDS ORDERED: SUCCINYLCHOLINE CHLORIDE 100 MG/5 ML SYR IV ONE (15:10)
[2021-06-15] MEDS ORDERED: ePHEDrine SULFATE/0.9% NACL/PF 50 MG/5 ML SYRINGE IV ONE (15:10)
[2021-06-15] MEDS ORDERED: ROPIVACAINE 5 MG/ML 30 ML VIAL ONE (15:10)
[2021-06-15] MEDS ORDERED: ceFAZolin 3,000 MG in SODIUM CHLORIDE 0.9% IRRIGATIO 3,000 ML IRRIGATION ONE (16:15)
[2021-06-15] MEDS ORDERED: VANCOMYCIN 1,000 MG VIAL MISCELLANE ONE (16:29)
[2021-06-15] MEDS ORDERED: LACTATED RINGERS 1,000 ML IV ONE (16:57)
--- NOTE | 2021-06-15 17:58 | XR ---
EXAMINATION TYPE: XR shoulder limited RT DATE OF EXAM: 06/15/2021 COMPARISON: Chest radiograph dated 12/20/2020 HISTORY: 66 years Male. STUDY INDICATION GIVEN: post op . TECHNIQUE: Single view of the right shoulder FINDINGS AND IMPRESSION: Status post total right shoulder arthroplasty. Diffuse osteopenia. Soft tissue swelling. Lung atelect atic changes and perhaps mild pulmonary edema? Catheter projecting over the shoulder, could represent a drain?
--- NOTE | 2021-06-15 19:03 | OP ---
OPERATIVE REPORT DATE OF PROCEDURE: 06/15/2021 SURGEON: Amaury Pino M.D. SANDER PORTABLE MACHINE: Nicanor Sal PA-C PREOPERATIVE DIAGNOSIS: Right shoulder advanced rotator cuff arthropathy. POSTOPERATIVE DIAGNOSIS: Right shoulder advanced rotator cuff arthropathy. OPERATION: Right reverse total shoulder arthroplasty. ANESTHESIA: General endotracheal. ESTIMATED BLOOD LOSS: 200 mL DRAINS: One deep drain. COMPLICATIONS: None apparent. DISPOSITION: Post-Anesthesia Care Unit INDICATIONS: Mr. Narvaez is a very pleasant 66-year-old gentleman with long-standing right shoulder pain. Workup including x-rays and an MRI revealed advanced rotator cuff arthropathy of the right shoulder. At this point it is felt that he has failed conservative management and he would like to proceed with operative intervention. The risks of the procedure were discussed with him in detail. These risks include but are not limited to risk of infection, nerve damage, bleeding, pain, instability in the shoulder, loosening of the implants and deep infection. There is also a small risk of deep vein thrombosis which could lead to fatal pulmonary embolism. The patient understands the risks. All of his questions with regard to the risks of the procedure were answered to his satisfaction. Appropriate informed consent was obtained. DESCRIPTION OF THE PROCEDURE: The patient was identified in the preoperative holding area. Surgical site was marked by both the patient and myself. He was given 2 grams of Ancef IV for prophylactic purposes. He was then transferred to the operative suite. He was placed supine on the operating room table. General anesthetic was then administered and dosed per the anesthesia department without apparent complication. Examination under anesthesia was then performed of the right shoulder. He had elevation to 150 degrees. External rotation at the side was to 70 degrees. The patient was then placed into the beach chair position and well padded in preparation for surgery. Great care was taken to ensure that his cervical spine was in neutral alignment, well padded and maintained that way throughout the operative procedure. Great care was also taken to ensure that his legs were well padded and maintained that way throughout the procedure as well. The patient's right upper extremity was then prepped and draped in the usual sterile fashion. A standard surgical pause was undertaken to ensure that we were operating on the correct site and that appropriate preoperative antibiotics had been given. All staff in the room were in agreement and we proceeded. The acromion, AC joint, clavicle and coracoid were marked with a surgical pen. A planned incision starting at the level of the clavicle and extending distally over the deltopectoral interval approximately 1 cm lateral to the coracoid was marked with a surgical pen. The incision was then made with a 10 blade scalpel. Dissection was carried down sharply to the deltoid fascia. The deltopectoral interval was then identified at the level of the clavicle. A small band retractor was then placed onto the proximal deltoid. I then released the deltoid fascia on the lateral aspect of the cephalic vein. The cephalic vein was visualized, protected and left in its bed medially. The cephalic vein was then protected throughout the entire case. I then identified the clavipectoral fascia. This was incised proximally to the level of the coracoacromial ligament. The coracoacromial ligament was left intact. I then used my finger to spread the interval between the conjoint tendon and the subscapularis. I felt for the axillary nerve, which was readily palpable. I then cleared the subacromial and subdeltoid spaces of bursal and scar tissue. I then utilized a Dan retractor to hold the deltoid and expose the humeral head. I then proceeded to release the subscapularis and anterior and inferior shoulder capsule. The rotator cuff was inspected. The entire greater tuberosity was completely devoid of any rotator cuff attachments at all. It was completely bare. The course of the biceps tendon was also identified. This was then released. The subscapularis and the capsule were then released intratendinously. The subscapularis and capsule release extended distally in a lazy-S fashion approximately 1 cm medial to the biceps tendon. I then continued to release the capsule along the inferior neck in a vertical fashion to approximately the 6 o'clock position. Great care was taken to ensure that the capsule was always visualized as it was released as to avoid injuring the axillary nerve. I then brought a Arnold telecommunications administrator with the arm externally rotated and abducted. I continued to release the capsule inferomedially to approximately the 4 o'clock position. I then proceeded with preparation of the humerus. I then removed the subchondral plate from the superior aspect of the humeral head utilizing a large rongeur. I then utilized a starting reamer to gain access to the humeral canal. This was 1 cm medial to the rotator cuff insertion and 1 cm posterior to the bicipital groove. I then prepared the humeral canal with hand reaming. I started with a 6 mm reamer and then progressed incrementally until firm resistance was encountered. This was at 12 mm. The reamer handle was then left in place. I then utilized a humeral resection guide set at 30 degrees of retrotorsion. The cutting block was then set at the level of the insertion of the rotator cuff. I then proceeded to osteotomize the head with an oscillating saw. I removed the resection guide and then completed the osteotomy. I then proceeded with trial stem placement. A trial size 12 was then broached in the canal starting with a 6 mm broach and then incrementally broaching up to a 12 mm broach. The 12 mm trial stem was then left in place. A bone hook was then utilized to pull the humerus out laterally. I then inspected the joint for any loose bodies. The Bhattman retractor was then placed on the posterior glenoid rim. The arm was placed in approximately 80 degrees of abduction and in slight flexion on the Arnold stand. I then proceeded to remove the hypertrophic labrum to definitively identify the actual glenoid. I then utilized the mini base plate starting guide. The pin was then placed slightly inferior on the glenoid and in 10 degrees of inferior tilt. I then utilized the mini base plate reamer. I then proceeded to place the real mini base plate. This fit very nicely. I then placed a 30 mm central screw. The screw had an excellent purchase in bone. When it was fully seated, I was able to rotate the scapula through the screwdriver. I then placed an inferior 5 mm locking screw. This was a 25 mm screw. The superior and anterior locking screws were also placed. These were 15 mm screws. I then had the truck sales representative open a size 36 glenosphere. The offset was set as to bring the glenosphere as inferior as possible. The Tapia taper was dried and then the glenosphere was impacted onto the mini base plate. I then proceeded to trial the humeral side with the real glenoid in place. I started with a standard base plate and a standard polyethylene. The shoulder was then reduced. It was a very secure reduction. The shoulder had full range of motion. There was no impingement. There was very minimal shuck. The conjoint tendon was of an appropriate tension. The bone hook was then utilized to re-dislocate the proximal humerus. I then decided to go forward with placement of the real components. I had the truck sales representative open a size 12 mini stem, a standard base plate and a standard poly. The real stem was then impacted into the humeral canal in 30 degrees of retrotorsion. The poly was then assembled onto the tray on the back table. I then placed the poly and tray onto a dry Tapia taper onto the real stem. The shoulder was then again reduced. Again it was a secure reduction. It was taken through full range of motion. There was no impingement noted. I then felt for the axillary nerve, which was readily palpable. I then proceeded with closure. The wound was thoroughly irrigated with sterile saline solution with antibiotic added via pulse lavage. A deep drain was then placed deep to the deltopectoral interval. It was brought out superiorly away from the incision. Approximately 500 mg of vancomycin powder was then placed deep. The deltopectoral interval was then closed with 0 Vicryl interrupted sutures. Again the wound was thoroughly irrigated with sterile saline solution with antibiotic added. The remaining 500 mg of vancomycin powder was then placed subcutaneously. The subcutaneous tissue was then closed with 2-0 Vicryl interrupted suture. The skin was closed with a running Quill suture. Dermabond was applied to the incision. Sterile dressing was then applied. The patient's right upper extremity was placed into a standard sling. All sponge and needle counts were deemed correct prior to closure. The patient tolerated the procedure without apparent complication. He was transferred to the recovery room in stable condition. MMODL / IJN: [id number] /
[2021-06-16] MEDS: LACTATED RINGERS 1,000 ML IV SCH ×2 (00:22→02:52)
[2021-06-16 09:02] VITALS: BP 142/79; PULSE 61; RESP 18; TEMP 97.8
[2021-06-16 09:30] LABS: Basophils # (A) 0.01 X 10*3/uL (0.00-0.10); Basophils % (A) 0.1 %; Eosinophils # (A) 0 X 10*3/uL (0.04-0.35); Eosinophils % (A) 0 %; HCT 38.3 % (39.6-50.0); Lymphocytes # (A) 0.83 X 10*3/uL (0.90-5.00); Lymphocytes % (A) 6.9 %; MCH 27.6 pg (27.0-32.0); MCHC 31.3 g/dL (32.0-37.0); MCV 88.2 fL (80.0-97.0); Mean Platelet Volume 9.8 fL (9.5-12.2); Monocytes # (A) 0.79 X 10*3/uL (0.20-1.00); Monocytes % (A) 6.6 %; Neutrophils # (A) 10.31 X 10*3/uL (1.80-7.70); Neutrophils % (A) 86.1 %; Platelet Count 279 X 10*3/uL (140-440); RBC 4.34 X 10*6/uL (4.40-5.60); RDW 13.9 % (11.5-14.5); WBC 11.97 X 10*3/uL (4.50-10.00)
[2021-06-16] MEDS ORDERED: IPRATROPIUM-ALBUTEROL 3 ML NEB INHALATION PRN (10:03)
[2021-06-16] MEDS ORDERED: IPRATROPIUM-ALBUTEROL 3 ML NEB INHALATION SCH ×2 (10:15→12:00)
[2021-06-16] MEDS ORDERED: cloNIDine HCL 0.1 MG TAB PO SCH ×2 (10:15→21:00)
[2021-06-16] MEDS ORDERED: PANTOPRAZOLE 40 MG/10 ML VIAL IVP SCH (10:15)
[2021-06-16] MEDS ORDERED: FORMOTEROL FUMARATE 20 MCG/2 ML NEBU INHALATION SCH (10:30)
[2021-06-16] MEDS ORDERED: SYMBICORT 80-4.5 MCG INHALER INHALATION SCH (10:30)
--- NOTE | 2021-06-16 11:42 | P.DS ---
Providers Expected date of discharge: 06/16/21 Attending physician: Amaury Pino Consults: 06/15/21 13:04 Consult Physician Routine Consulting Provider: Alex Robbins Consult Reason/Comments: post op medical management Do you want consulting provider notified?: Yes Primary care physician: Alex Robbins - Discharge Diagnosis(es) (1) Status post total replacement of right shoulder Patient was admitted to the OR on 06/15/2021 to undergo a right total shoulder arthroplasty. He had failed conservative measures as an outpatient and desired to proceed with elective surgery after given informed consent. He underwent the above procedure which he tolerated well without complication. Postoperative hospital course has remained without complication. On day of discharge he is afebrile, vital signs stable, labs within acceptable ranges, tolerating by mouth meds and diet, voiding without difficulty, positive flatus, denies abdominal pain or calf pain, pain is controlled on oral pain medication and has no new complaints. Wound is benign, neurovascular status is intact, calves are soft and nontender, abdomen soft and nontender. Review of systems is negative for numbness, tingling, fever, chills, chest pain, shortness of breath, nausea, vomiting, dizziness, headaches, slurred speech or other. Current Visit: Yes Status: Acute Priority: Medium Procedures: Right TSA Patient Condition at Discharge: Good Plan - Discharge Summary Discharge Rx Participant: No New Discharge Prescriptions: New Docusate [Colace] 100 mg PO BID #60 capsule HYDROcodone/APAP 7.5-325MG [[place] 7.5-325] 1 - 2 each PO Q6HR PRN #42 tab PRN Reason: Pain Doxycycline Hyclate 100 mg PO BID #10 tab No Action Omeprazole 40 mg PO HS cloNIDine HCL [Catapres] 0.1 mg PO BID Glycopyrrolate/Formoterol Fum [Bevespi Aerosphere Inhaler] 2 puff INHALATION BID Losartan Potassium 100 mg PO QAM Ipratropium-Albuterol Nebulize [Duoneb 0.5 mg-3 mg/3 ml Soln] 3 ml INHALATION QID Famotidine [Pepcid] 20 mg PO BID Omeprazole 20 mg PO AC-BID rOPINIRole HCL [Requip] 1 mg PO HS Fluticasone/Umeclidin/Vilanter [Trelegy Ellipta 200-62.5-25] 2 puff INHALATION BID Multivit-Mins/Iron/Folic/Lycop [Centrum Men's Tablet] 1 each PO DAILY Discharge Medication List Omeprazole 40 mg PO HS 04/26/17 [History] cloNIDine HCL [Catapres] 0.1 mg PO BID 10/02/18 [History] Glycopyrrolate/Formoterol Fum [Bevespi Aerosphere Inhaler] 2 puff INHALATION BID 03/20/19 [History] Losartan Potassium 100 mg PO QAM 03/20/19 [History] Famotidine [Pepcid] 20 mg PO BID 06/08/19 [History] Ipratropium-Albuterol Nebulize [Duoneb 0.5 mg-3 mg/3 ml Soln] 3 ml INHALATION QID 06/08/19 [History] Omeprazole 20 mg PO AC-BID 06/08/19 [History] rOPINIRole HCL [Requip] 1 mg PO HS 07/22/19 [History] Fluticasone/Umeclidin/Vilanter [Trelegy Ellipta 200-62.5-25] 2 puff INHALATION BID 05/25/21 [History] Multivit-Mins/Iron/Folic/Lycop [Centrum Men's Tablet] 1 each PO DAILY 05/25/21 [History] Docusate [Colace] 100 mg PO BID #60 capsule 06/16/21 [Rx] Doxycycline Hyclate 100 mg PO BID #10 tab 06/16/21 [Rx] HYDROcodone/APAP 7.5-325MG [[place] 7.5-325] 1 - 2 each PO Q6HR PRN #42 tab 06/16/21 [Rx] Follow up Appointment(s)/Referral(s): Amaury Pino MD [STAFF PHYSICIAN] - 10 Days Patient Instructions/Handouts: Shoulder Arthroplasty (DC) Activity/Diet/Wound Care/Special Instructions: Keep wound clean and dry Take meds as directed Follow-up with Dr. Pino in office Maintain sling May shower in 3 days if no bleeding Discharge Disposition: HOME SELF-CARE
[2021-06-16] MEDS ORDERED: IPRATROPIUM 0.5 MG/2.5 ML NEBU INHALATION SCH (12:00)
--- NOTE | 2021-06-16 13:23 | P.CONS ---
History of Present Illness - Reason for Consult Consult date: 06/16/21 Medical management gastroesophageal reflux disease, COPD Requesting physician: Amaury Pino - Chief Complaint Right shoulder advanced rotator cuff arthropathy, Status post total arthrop - History of Present Illness This is a pleasant 66-year-old gentleman with past medical history of hypertension, gastroesophageal reflux disease, prior nicotine dependence, esophageal cancer with pull-through surgery, COPD ,osteoarthritis with multiple orthopedic surgeries status post right total shoulder arthroplasty. Tolerated procedure well. States pain well controlled. Passing flatus. Wearing sling. Maintained on gentle IV fluid hydration. Denies chest pain, palpitations or shortness of breath. Denies lightheadedness, dizziness or focal deficits. Expiratory wheezing -home meds including COPD med regimen/inhalers/nebulizers initiated. Maintaining O2 sat in the 90s on 2 L nasal cannula.Afebrile, mild leukocytosis-suspect reactive. Review of Systems Constitutional: Denied any fatigue denied any fever. Cardio vascular: denied any chest pain, palpitations Gastrointestinal denied any nausea vomiting Pulmonary: Denied any shortness of breath cough Neurologic denied any new focal deficits ROS Statement: Those systems with pertinent positive or pertinent negative responses have been documented in the HPI. ROS Other: All systems not noted in ROS Statement are negative. Past Medical History Past Medical History: Cancer, COPD, GERD/Reflux, Hypertension, Osteoarthritis (OA) Additional Past Medical History / Comment(s): Received both covid vaccines,Esther ropathy, hx esophageal cancer treated with surgery(no radiation or chemo) - 2008, past hx of sleep apnea and diabetes but none now after 150 pound weight loss, tremors,prostate CA History of Any Multi-Drug Resistant Organisms: None Reported Past Surgical History: Appendectomy, Hernia Repair, Joint Replacement, Orthopedic Surgery Additional Past Surgical History / Comment(s): Bilateral elbow, bilateral wrist carpal tunnel, bilateral rotator cuff surgery, right knee arthroscopy, right knee replacement, surgery for esophageal cancer (removed part of esophagus and removed part of stomach making it into carrot shape per patient), hernia repair X3. robotic prostatectomy with bilateral stent placement and pelvic lymph node removal 08/11/20 Past Anesthesia/Blood Transfusion Reactions: Previous Problems w/ Anesthesia Additional Past Anesthesia/Blood Transfusion Reaction / Comm: can not lay flat- "stomach acid will come out my nose" Past Psychological History: Anxiety, Depression Additional Psychological History / Comment(s): Pt lives at home with his . Pt is normally independent. Smoking Status: Former smoker Past Alcohol Use History: None Reported Additional Past Alcohol Use History / Comment(s): Patient was a smoker one pack per day for 10 years and quit ago 32 years ago. He lives at home with his . He is retired [employer] with exposure to asbestos. There is one cat, a Great Power and a Mountainh terrier in the home. Patient enjoys camping, bicycling, gardening and yard work. No recent travel outside of [place]. The patient has been camping in [place]. Past Drug Use History: None Reported - Past Family History Father Family Medical History: Cancer Additional Family Medical History / Comment(s): COLON Cancer. Mother Family Medical History: Cancer, Deep Vein Thrombosis (DVT) Additional Family Medical History / Comment(s): Brain aneurysm. Medications and Allergies Home Medications Medication Instructions Recorded Confirmed Type Omeprazole 40 mg PO HS 04/26/17 06/15/21 History cloNIDine HCL [Catapres] 0.1 mg PO BID 10/02/18 06/15/21 History Glycopyrrolate/Formoterol Fum 2 puff INHALATION BID 03/20/19 06/15/21 History [Bevespi Aerosphere Inhaler] Losartan Potassium 100 mg PO QAM 03/20/19 06/15/21 History Famotidine [Pepcid] 20 mg PO BID 06/08/19 06/15/21 History Ipratropium-Albuterol Nebulize 3 ml INHALATION QID 06/08/19 06/15/21 History [Duoneb 0.5 mg-3 mg/3 ml Soln] Omeprazole 20 mg PO AC-BID 06/08/19 06/15/21 History rOPINIRole HCL [Requip] 1 mg PO HS 07/22/19 06/15/21 History Fluticasone/Umeclidin/Vilanter 2 puff INHALATION BID 05/25/21 06/15/21 History [Trelegy Ellipta 200-62.5-25] Multivit-Mins/Iron/Folic/Lycop 1 each PO DAILY 05/25/21 06/15/21 History [Centrum Men's Tablet] Docusate [Colace] 100 mg PO BID #60 capsule 06/16/21 Rx Doxycycline Hyclate 100 mg PO BID #10 tab 06/16/21 Rx HYDROcodone/APAP 7.5-325MG [[employer] 1 - 2 each PO Q6HR PRN #42 tab 06/16/21 Rx 7.5-325] Allergies Allergy/AdvReac Type Severity Reaction Status Date / Time No Known Allergies Allergy Verified 06/15/21 13:12 Physical Exam Vitals: Vital Signs Temp Pulse Pulse Resp BP BP Pulse Ox 06/16/21 08:00 97.8 F 61 18 142/79 96 06/16/21 01:27 97.7 F 69 22 115/68 93 L 06/15/21 20:20 98.0 F 74 18 108/71 91 L 06/15/21 20:00 97.8 F 76 18 112/70 91 L 06/15/21 19:45 76 18 127/76 90 L 06/15/21 17:52 90 16 146/74 97 06/15/21 17:37 77 16 139/67 92 L 06/15/21 17:22 96.9 F L 83 18 151/72 94 L 06/15/21 13:51 72 18 121/70 96 06/15/21 13:18 97.8 F 74 18 130/78 95 Intake and Output 06/15/21 06/16/21 06/16/21 22:59 06:59 14:59 Intake Total 851 2260 Output Total 200 90 Balance 651 2170 Intake: IV 851 Intake, IV Titration 1300 Amount Lactated Ringers 1,000 ml 1200 @ 100 mls/hr IV .Q10H [facility] Rx#:[id number] ceFAZolin 2 gm In Sodium 100 Chloride 0.9% 50 ml @ 100 mls/hr IVPB Q8H [facility] Rx#: [id number] Oral 960 Output: Drainage 90 Right Shoulder 90 Estimated Blood Loss 200 Other: # Voids 1 Weight 98.3 kg PHYSICAL EXAM: VITAL SIGNS: [As above] GENERAL: Sitting up at side of bed, no acute distress. HEENT: Conjunctivae normal. eyes normal. NECK: No JVD. No thyroid enlargement. No LNs, wearing sling over right extremity CARDIOVASCULAR: S1, S2 regular. No murmur RESPIRATION: Breath sounds diminished in the bases. No rhonchi or crackles. Positive expiratory wheezing . ABDOMEN: Soft, nontender . No guarding. no masses palpable. No ascites, No hepatosplenomegaly.Bowel sounds heard. EXTREMITIES: No edema. no swelling. Right arm in sling, hand, fingers warm, capillary refill less than 2 seconds, positive radial pulse, PSYCHIATRY: Alert and oriented X3, mood and affect normal. NERVOUS SYSTEM: Cranial N 2-12 grossly normal. Moves all 4 limbs. No focal deficits. Strength and sensation grossly intact.. Skin: warm and dry, no rash Results CBC & Chem 7: 06/16/21 06:11 Labs: Abnormal Lab Results - Last 24 Hours (Table) 06/16/21 Range/Units 06:11 WBC 11.97 H (4.50-10.00) X 10*3/uL RBC 4.34 L (4.40-5.60) X 10*6/uL Hgb 12.0 L (13.0-17.0) g/dL Hct 38.3 L (39.6-50.0) % MCHC 31.3 L (32.0-37.0) g/dL Neutrophils # 10.31 H (1.80-7.70) X 10*3/uL Lymphocytes # 0.83 L (0.90-5.00) X 10*3/uL Eosinophils # 0 L (0.04-0.35) X 10*3/uL Assessment and Plan Assessment: Right shoulder advanced rotator cuff arthropathy, Status post total right shoulder arthroplasty, failed conservative measures. Acute hypoxic respiratory failure, weaning off oxygen, home inhalers/nebulizers initiated. COPD History of asbestos exposure, retired [employer] Gastroesophageal reflux disease Diabetes mellitus, significant weight loss status post surgery, managed with diet only Essential hypertension History of nicotine dependence History of esophageal cancer, status post surgery with pull thru Obesity, BMI 31. 1 Plan: Continue on current medication regime ,monitoring and symptomatic treatment. Home meds/nebulized bronchodilators initiated.Pain management as per orthopedic surgery. Discharge planning in progress as per primary. Follow-up in one week with PCP, Dr. Robbins. Thank you Dr. Pino for consult. The impression and plan of care has been dictated as directed. : I performed a history and examination of this patient, discussed the same with the dictator. I agree with the dictator's note ,documented as a scribe. Any additional findings or plans will be noted.
[2021-06-16] MEDS ORDERED: NON FORMULARY DRUG (Omeprazole [Omeprazole] 40 MG Capsule.Dr) PO SCH (21:00)
[2021-06-16] MEDS ORDERED: PANTOPRAZOLE 40 MG TABLET PO SCH (21:00)
[2021-06-17] MEDS ORDERED: LOSARTAN 50 MG TAB PO SCH (09:00)
[2021-06-17] MEDS ORDERED: MULTIVITAMINS, THERA 1 EACH TAB PO SCH (09:00)
== END 2021-06-16 12:57 | disposition home or self-care (01) ==
LOC: OR 12:45 → 4SSUR 17:13 → OR 06-16 12:57
PROVIDERS: ATTEND Orthopaedic Surgery Sports Medicine
DX: M85.811 Other specified disorders of bone density and structure, right shoulder (principal); I10 Essential (primary) hypertension; J44.9 Chronic obstructive pulmonary disease, unspecified; E11.9 Type 2 diabetes mellitus without complications; M19.90 Unspecified osteoarthritis, unspecified site; G62.9 Polyneuropathy, unspecified; K21.9 Gastro-esophageal reflux disease without esophagitis; Z85.46 Personal history of malignant neoplasm of prostate; Z77.090 Contact with and (suspected) exposure to asbestos; Z79.899 Other long term (current) drug therapy; Z85.01 Personal history of malignant neoplasm of esophagus; Z87.891 Personal history of nicotine dependence; Z90.49 Acquired absence of other specified parts of digestive tract; Z90.79 Acquired absence of other genital organ(s); Z96.611 Presence of right artificial shoulder joint
CPT/HCPCS: 23472; 64415; 76942; 88305; 85025; 88311; 73020; C1776; J2250; J3370; J1100; J2710; J0690 ×3; J2405; J3010; J2795; J2370; J0330; J2704; J1170 ×2

== ENCOUNTER 2021-10-19 19:43 | Inpatient (IN) | payer MEDICARE ==
[2021-10-19] MEDS ORDERED: IPRATROPIUM-ALBUTEROL 3 ML NEB INHALATION STA (21:46)
[2021-10-19] MEDS ORDERED: SODIUM CHLORIDE 0.9% 500 ML 500 ML IV STA (21:47)
[2021-10-19] MEDS ORDERED: SODIUM CHLORIDE 0.9% 1,000 ML IV STA (21:47)
--- NOTE | 2021-10-19 21:47 | ED ---
SOB HPI - General Chief Complaint: Shortness of Breath Stated Complaint: Difficulty Breathing, Cough Time Seen by Provider: 10/19/21 21:32 Source: patient, family, RN notes reviewed, old records reviewed Mode of arrival: wheelchair Limitations: no limitations - History of Present Illness Initial Comments: This is a 66-year-old male to the ER today for evaluation. Patient presents today for evaluation of shortness with cough and congestion progressively worsening over the past few weeks. Patient did breathing treatments every 4 hours with no help. Patient states he feels continuously short of breath especially with exertion chest pain no fevers no heart disease. MD Complaint: shortness of breath, cough, "asthma attack" -: week(s) Severity: moderate Severity scale (1-10): 7 Quality: aching, throbbing, sharp Consistency: constant Improves With: oxygen Worsens With: exertion, movement Known History Of: COPD Context: recent URI, recent illness Associated Symptoms: cough, sputum production Treatments Prior to Arrival: bronchodilator - Related Data Home Medications Medication Instructions Recorded Confirmed Omeprazole 40 mg PO HS 04/26/17 10/19/21 cloNIDine HCL [Catapres] 0.1 mg PO BID 10/02/18 10/19/21 Losartan Potassium 100 mg PO DAILY 03/20/19 10/19/21 Famotidine [Pepcid] 20 mg PO BID 06/08/19 10/19/21 Ipratropium-Albuterol Nebulize 3 ml INHALATION QID 06/08/19 10/19/21 [Duoneb 0.5 mg-3 mg/3 ml Soln] Omeprazole 20 mg PO AC-BID 06/08/19 10/19/21 Fluticasone/Umeclidin/Vilanter 1 puff INHALATION RT-DAILY 05/25/21 10/19/21 [Trelegy Ellipta 200-62.5-25] Multivit-Mins/Iron/Folic/Lycop 1 tab PO DAILY 05/25/21 10/19/21 [Centrum Men's Tablet] Escitalopram [Lexapro] 10 mg PO HS 10/19/21 10/19/21 rOPINIRole HCL [Requip] 1 mg PO HS 10/19/21 10/19/21 Previous Rx's Medication Instructions Recorded Albuterol Nebulized [Ventolin 2.5 mg INHALATION Q4H PRN #25 each 10/20/21 Nebulized] predniSONE 50 mg PO DAILY #5 tab 10/20/21 Allergies Allergy/AdvReac Type Severity Reaction Status Date / Time No Known Allergies Allergy Verified 10/19/21 23:07 Review of Systems ROS Statement: Those systems with pertinent positive or pertinent negative responses have been documented in the HPI. ROS Other: All systems not noted in ROS Statement are negative. Past Medical History Past Medical History: Cancer, COPD, GERD/Reflux, Hypertension Additional Past Medical History / Comment(s): Neuropathy, hx esophageal cancer treated with surgery - 2008, past hx of sleep apnea and diabetes but none now after 150 pound weight loss, tremors. prostate cancer History of Any Multi-Drug Resistant Organisms: None Reported Past Surgical History: Appendectomy, Hernia Repair, Joint Replacement, Orthopedic Surgery Additional Past Surgical History / Comment(s): Bilateral elbow, bilateral wrist carpal tunnel, bilateral rotator cuff surgery, right knee arthroscopy, right knee replacement, surgery for esophageal cancer (removed part of esophagus and removed part of stomach making it into carrot shape per patient), hernia repair X3. robotic prostatectomy with bilateral stent placement and pelvic lymph node removal 08/11/20 Past Anesthesia/Blood Transfusion Reactions: Previous Problems w/ Anesthesia Additional Past Anesthesia/Blood Transfusion Reaction / Comment(s): can not lay flat- "stomach acid will come out my nose" Past Psychological History: Anxiety, Depression Smoking Status: Former smoker Past Alcohol Use History: None Reported Past Drug Use History: None Reported - Past Family History Father Family Medical History: Cancer Additional Family Medical History / Comment(s): COLON Cancer. Mother Family Medical History: Cancer, Deep Vein Thrombosis (DVT) Additional Family Medical History / Comment(s): Brain aneurysm. General Exam Limitations: no limitations General appearance: alert, in no apparent distress, anxious, in distress Head exam: Present: atraumatic, normocephalic, normal inspection Eye exam: Present: normal appearance, PERRL, EOMI. Absent: scleral icterus, conjunctival injection, periorbital swelling ENT exam: Present: normal exam, mucous membranes moist Neck exam: Present: normal inspection. Absent: tenderness, meningismus, lymphadenopathy Respiratory exam: Present: respiratory distress, wheezes, accessory muscle use, decreased breath sounds, prolonged expiratory. Absent: rales, rhonchi, stridor Cardiovascular Exam: Present: regular rate, normal rhythm, normal heart sounds. Absent: systolic murmur, diastolic murmur, rubs, gallop, clicks GI/Abdominal exam: Present: soft, normal bowel sounds. Absent: distended, tenderness, guarding, rebound, rigid Extremities exam: Present: normal inspection, full ROM, normal capillary refill. Absent: tenderness, pedal edema, joint swelling, calf tenderness Back exam: Present: normal inspection Neurological exam: Present: alert, oriented X3, CN II-XII intact Psychiatric exam: Present: normal affect, normal mood Skin exam: Present: warm, dry, intact, normal color. Absent: rash Course Vital Signs 10/19/21 10/19/21 10/19/21 21:00 21:15 23:00 Temperature 98.1 F Pulse Rate 78 72 Respiratory 20 18 16 Rate Blood Pressure 127/81 127/78 O2 Sat by Pulse 94 L 94 L Oximetry 10/19/21 10/19/21 23:13 23:20 Temperature Pulse Rate 74 75 Respiratory Rate Blood Pressure O2 Sat by Pulse Oximetry - Reevaluation(s) Reevaluation #1: 10/20/21 01:05 Record is reviewed Reevaluation #2: 10/20/21 01:05 Patient has improvement but no significant improvement after breathing treatment Reevaluation #3: 10/20/21 01:05 She currently still short of breath not feeling comfortable for discharge especially with movement standing up Reevaluation #4: 10/20/21 01:05 Patient informed results questions answered - Consultations Consultation #1: Spoke with sound physicians okay to admit this patient Medical Decision Making - Medical Decision Making 66 male the emergency department for evaluation of increased cough and congestion significant shortness of breath especially with exertion. Patient will be admitted for continuous breathing treatments and steroids - Lab Data Result diagrams: 10/19/21 22:30 10/19/21 22:30 Lab Results 10/19/21 10/19/21 10/19/21 Range/Units 22:30 22:30 22:30 WBC 13.7 H (3.8-10.6) k/uL RBC 4.95 (4.30-5.90) m/uL Hgb 13.9 (13.0-17.5) gm/dL Hct 43.6 (39.0-53.0) % MCV 88.0 (80.0-100.0) fL MCH 28.0 (25.0-35.0) pg MCHC 31.8 (31.0-37.0) g/dL RDW 15.0 (11.5-15.5) % Plt Count 255 (150-450) k/uL MPV 7.0 Neutrophils % 75 % Lymphocytes % 17 % Monocytes % 4 % Eosinophils % 3 % Basophils % 0 % Neutrophils # 10.3 H (1.3-7.7) k/uL Lymphocytes # 2.3 (1.0-4.8) k/uL Monocytes # 0.6 (0-1.0) k/uL Eosinophils # 0.4 (0-0.7) k/uL Basophils # 0.1 (0-0.2) k/uL PT 10.3 (9.0-12.0) sec INR 1.0 (<1.2) APTT 23.6 (22.0-30.0) sec D-Dimer 0.29 (<0.60) mg/L FEU Sodium 137 (137-145) mmol/L Potassium 4.2 (3.5-5.1) mmol/L Chloride 105 (98-107) mmol/L Carbon Dioxide 23 (22-30) mmol/L Anion Gap 9 mmol/L BUN 27 H (9-20) mg/dL Creatinine 0.64 L (0.66-1.25) mg/dL Est GFR (CKD-EPI)AfAm >90 (>60 ml/min/1.73 sqM) Est GFR (CKD-EPI)NonAf >90 (>60 ml/min/1.73 sqM) Glucose 114 H (74-99) mg/dL Plasma Lactic Acid Son (0.7-2.0) mmol/L Calcium 8.8 (8.4-10.2) mg/dL Phosphorus 3.7 (2.5-4.5) mg/dL Magnesium 2.3 (1.6-2.3) mg/dL Total Bilirubin 0.3 (0.2-1.3) mg/dL AST 32 (17-59) U/L ALT 19 (4-49) U/L Alkaline Phosphatase 83 (38-126) U/L Troponin I (0.000-0.034) ng/mL NT-Pro-B Natriuret Pep pg/mL Total Protein 6.7 (6.3-8.2) g/dL Albumin 3.8 (3.5-5.0) g/dL Urine Color Urine Appearance (Clear) Urine pH (5.0-8.0) Ur Specific [place] (1.001-1.035) Urine Protein (Negative) Urine Glucose (UA) (Negative) Urine Ketones (Negative) Urine Blood (Negative) Urine Nitrite (Negative) Urine Bilirubin (Negative) Urine Urobilinogen (<2.0) mg/dL Ur Leukocyte Esterase (Negative) 10/19/21 10/19/21 10/19/21 Range/Units 22:30 22:30 22:30 WBC (3.8-10.6) k/uL RBC (4.30-5.90) m/uL Hgb (13.0-17.5) gm/dL Hct (39.0-53.0) % MCV (80.0-100.0) fL MCH (25.0-35.0) pg MCHC (31.0-37.0) g/dL RDW (11.5-15.5) % Plt Count (150-450) k/uL MPV Neutrophils % % Lymphocytes % % Monocytes % % Eosinophils % % Basophils % % Neutrophils # (1.3-7.7) k/uL Lymphocytes # (1.0-4.8) k/uL Monocytes # (0-1.0) k/uL Eosinophils # (0-0.7) k/uL Basophils # (0-0.2) k/uL PT (9.0-12.0) sec INR (<1.2) APTT (22.0-30.0) sec D-Dimer (<0.60) mg/L FEU Sodium (137-145) mmol/L Potassium (3.5-5.1) mmol/L Chloride (98-107) mmol/L Carbon Dioxide (22-30) mmol/L Anion Gap mmol/L BUN (9-20) mg/dL Creatinine (0.66-1.25) mg/dL Est GFR (CKD-EPI)AfAm (>60 ml/min/1.73 sqM) Est GFR (CKD-EPI)NonAf (>60 ml/min/1.73 sqM) Glucose (74-99) mg/dL Plasma Lactic Acid Son 0.9 (0.7-2.0) mmol/L Calcium (8.4-10.2) mg/dL Phosphorus (2.5-4.5) mg/dL Magnesium (1.6-2.3) mg/dL Total Bilirubin (0.2-1.3) mg/dL AST (17-59) U/L ALT (4-49) U/L Alkaline Phosphatase (38-126) U/L Troponin I <0.012 (0.000-0.034) ng/mL NT-Pro-B Natriuret Pep 32 pg/mL Total Protein (6.3-8.2) g/dL Albumin (3.5-5.0) g/dL Urine Color Urine Appearance (Clear) Urine pH (5.0-8.0) Ur Specific [place] (1.001-1.035) Urine Protein (Negative) Urine Glucose (UA) (Negative) Urine Ketones (Negative) Urine Blood (Negative) Urine Nitrite (Negative) Urine Bilirubin (Negative) Urine Urobilinogen (<2.0) mg/dL Ur Leukocyte Esterase (Negative) 10/19/21 Range/Units 23:15 WBC (3.8-10.6) k/uL RBC (4.30-5.90) m/uL Hgb (13.0-17.5) gm/dL Hct (39.0-53.0) % MCV (80.0-100.0) fL MCH (25.0-35.0) pg MCHC (31.0-37.0) g/dL RDW (11.5-15.5) % Plt Count (150-450) k/uL MPV Neutrophils % % Lymphocytes % % Monocytes % % Eosinophils % % Basophils % % Neutrophils # (1.3-7.7) k/uL Lymphocytes # (1.0-4.8) k/uL Monocytes # (0-1.0) k/uL Eosinophils # (0-0.7) k/uL Basophils # (0-0.2) k/uL PT (9.0-12.0) sec INR (<1.2) APTT (22.0-30.0) sec D-Dimer (<0.60) mg/L FEU Sodium (137-145) mmol/L Potassium (3.5-5.1) mmol/L Chloride (98-107) mmol/L Carbon Dioxide (22-30) mmol/L Anion Gap mmol/L BUN (9-20) mg/dL Creatinine (0.66-1.25) mg/dL Est GFR (CKD-EPI)AfAm (>60 ml/min/1.73 sqM) Est GFR (CKD-EPI)NonAf (>60 ml/min/1.73 sqM) Glucose (74-99) mg/dL Plasma Lactic Acid Son (0.7-2.0) mmol/L Calcium (8.4-10.2) mg/dL Phosphorus (2.5-4.5) mg/dL Magnesium (1.6-2.3) mg/dL Total Bilirubin (0.2-1.3) mg/dL AST (17-59) U/L ALT (4-49) U/L Alkaline Phosphatase (38-126) U/L Troponin I (0.000-0.034) ng/mL NT-Pro-B Natriuret Pep pg/mL Total Protein (6.3-8.2) g/dL Albumin (3.5-5.0) g/dL Urine Color Yellow Urine Appearance Clear (Clear) Urine pH 7.0 (5.0-8.0) Ur Specific [place] 1.030 (1.001-1.035) Urine Protein Trace H (Negative) Urine Glucose (UA) Negative (Negative) Urine Ketones Negative (Negative) Urine Blood Negative (Negative) Urine Nitrite Negative (Negative) Urine Bilirubin Negative (Negative) Urine Urobilinogen 4.0 (<2.0) mg/dL Ur Leukocyte Esterase Negative (Negative) - EKG Data -: EKG Interpreted by Me (EKG is sinus rhythm 70 ME 148 QRS 146 QTc 468) - Radiology Data Radiology results: report reviewed (Chest x-rays negative for acute disease), image reviewed Disposition Clinical Impression: Acute exacerbation of chronic obstructive pulmonary disease, Hypoxia Disposition: ADMITTED IP TO THIS HOSP Condition: Good Is patient prescribed a controlled substance at d/c from ED?: No
--- NOTE | 2021-10-19 22:20 | XR ---
EXAMINATION TYPE: XR chest 1V portable DATE OF EXAM: 10/19/2021 COMPARISON: December 20, 2020 HISTORY: Short of breath TECHNIQUE: Multiple view FINDINGS: There is increased density over the right lower lobe that is unchanged compared to old exam and consistent with previous gastric pull-through. The left lung is clear. There is no heart failure . Costophrenic angles are clear. IMPRESSION: No active cardiopulmonary disease. Gastric pull-through procedure. No heart failure.
[2021-10-19 22:52] LABS: Basophils # (A) 0.1 k/uL (0-0.2); Basophils % (A) 0 %; Eosinophils # (A) 0.4 k/uL (0-0.7); Eosinophils % (A) 3 %; HCT 43.6 % (39.0-53.0); HGB 13.9 gm/dL (13.0-17.5); Lymphocytes # (A) 2.3 k/uL (1.0-4.8); Lymphocytes % (A) 17 %; MCHC 31.8 g/dL (31.0-37.0); Monocytes # (A) 0.6 k/uL (0-1.0); Monocytes % (A) 4 %; Neutrophils # (A) 10.3 k/uL (1.3-7.7); Neutrophils % (A) 75 %; Platelet Count 255 k/uL (150-450); RBC 4.95 m/uL (4.30-5.90); WBC 13.7 k/uL (3.8-10.6)
[2021-10-19 23:09] LABS: ALT 19 U/L (4-49); AST 32 U/L (17-59); African American GFR (CKD) >90 (>60 ml/min/1.73 sqM); Albumin 3.8 g/dL (3.5-5.0); Alkaline Phosphatase 83 U/L (38-126); Anion Gap 9 mmol/L; Blood Urea Nitrogen 27 mg/dL (9-20); Calcium 8.8 mg/dL (8.4-10.2); Carbon Dioxide 23 mmol/L (22-30); Chloride 105 mmol/L (98-107); Glucose 114 mg/dL (74-99); Magnesium 2.3 mg/dL (1.6-2.3); Non-African American GFR(CKD) >90 (>60 ml/min/1.73 sqM); Partial Thromboplastin Time 23.6 sec (22.0-30.0); Phosphorus 3.7 mg/dL (2.5-4.5); Potassium 4.2 mmol/L (3.5-5.1); Prothrombin Time 10.3 sec (9.0-12.0); Sodium 137 mmol/L (137-145); Total Bilirubin 0.3 mg/dL (0.2-1.3); Total Protein 6.7 g/dL (6.3-8.2)
[2021-10-19 23:34] LABS: Appearance,Urine Clear (Clear); Bilirubin,Urine Negative (Negative); Blood,Urine Negative (Negative); Color,Urine Yellow; Glucose,Urine (UA) Negative (Negative); Ketones,Urine Negative (Negative); Leukocyte Esterase,Urine Negative (Negative); Nitrite,Urine Negative (Negative); Protein,Urine Trace (Negative)
[2021-10-19] MEDS ORDERED: SODIUM BICARB 8.4% 50 ML SYR (1 MEQ/ML) IV STA (23:49)
[2021-10-20] MEDS ORDERED: DEXAMETHASONE SOD PHOSPHATE 10 MG/ML 1 ML VIAL IVP STA ×2 (00:08→01:34)
[2021-10-20] MEDS ORDERED: LORazepam 2 MG/ML INJ IV PRN (00:33)
[2021-10-20] MEDS ORDERED: IPRATROPIUM-ALBUTEROL 3 ML NEB INHALATION STA (00:33)
[2021-10-20] MEDS: DEXTROSE 5% IN WATER 1,000 ML with SODIUM BICARB (1 MEQ/ML) 150 ML IV SCH ×2 (00:33→10:12)
[2021-10-20] MEDS ORDERED: ONDANSETRON 4 MG/2 ML VIAL IVP PRN (00:33)
[2021-10-20] MEDS ORDERED: NALOXONE 0.4 MG/ML 1 ML VIAL IV PRN (00:33)
[2021-10-20] MEDS ORDERED: MORPHINE SULFATE 4 MG/ML SYRINGE IV PRN (00:33)
[2021-10-20] MEDS ORDERED: IPRATROPIUM-ALBUTEROL 3 ML NEB INHALATION PRN (01:17)
[2021-10-20] MEDS: SODIUM CHLORIDE 0.9% 1,000 ML IV SCH ×2 (01:35→10:12)
--- NOTE | 2021-10-20 03:26 | P.HPIM ---
History of Present Illness H&P Date: 10/20/21 Chief Complaint: SOB 66-year-old male with COPD, prostate cancer, esophageal cancer status post surgery Patient comes in with one-week history of worsening shortness of breath and wheezing, associated with coughing productive of thick yellowish sputum, over the past couple days became associated with pleuritic chest pain upon coughing his symptoms has not been improving with his nebulizers as he's been using every couple hours for which she decided come to the hospital he denies any fevers or chills denies any sick contact denies any recent travel hospital stay denies any leg swelling denies any history of blood clots. In the hospital and was found to be hypoxic patient does not use any home oxygen currently on 2 L Chest x-ray showed no acute pathology Blood work reviewed Covid testing is pending, patient is vaccinated and boosted, denies any illegal drugs or smoking Review of Systems Pertinent positives as noted in HPI. All other systems were reviewed and are negative Past Medical History Past Medical History: Cancer, COPD, GERD/Reflux, Hypertension Additional Past Medical History / Comment(s): Neuropathy, hx esophageal cancer treated with surgery - 2008, past hx of sleep apnea and diabetes but none now after 150 pound weight loss, tremors. prostate cancer History of Any Multi-Drug Resistant Organisms: None Reported Past Surgical History: Appendectomy, Hernia Repair, Joint Replacement, Orthopedic Surgery Additional Past Surgical History / Comment(s): Bilateral elbow, bilateral wrist carpal tunnel, bilateral rotator cuff surgery, right knee arthroscopy, right knee replacement, surgery for esophageal cancer (removed part of esophagus and removed part of stomach making it into carrot shape per patient), hernia repair X3. robotic prostatectomy with bilateral stent placement and pelvic lymph node removal 08/11/20 Past Anesthesia/Blood Transfusion Reactions: Previous Problems w/ Anesthesia Additional Past Anesthesia/Blood Transfusion Reaction / Comment(s): can not lay flat- "stomach acid will come out my nose" Past Psychological History: Anxiety, Depression Smoking Status: Former smoker Past Alcohol Use History: None Reported Past Drug Use History: None Reported - Past Family History Father Family Medical History: Cancer Additional Family Medical History / Comment(s): COLON Cancer. Mother Family Medical History: Cancer, Deep Vein Thrombosis (DVT) Additional Family Medical History / Comment(s): Brain aneurysm. Medications and Allergies Home Medications Medication Instructions Recorded Confirmed Type Omeprazole 40 mg PO HS 04/26/17 10/19/21 History cloNIDine HCL [Catapres] 0.1 mg PO BID 10/02/18 10/19/21 History Losartan Potassium 100 mg PO DAILY 03/20/19 10/19/21 History Famotidine [Pepcid] 20 mg PO BID 06/08/19 10/19/21 History Ipratropium-Albuterol Nebulize 3 ml INHALATION QID 06/08/19 10/19/21 History [Duoneb 0.5 mg-3 mg/3 ml Soln] Omeprazole 20 mg PO AC-BID 06/08/19 10/19/21 History Fluticasone/Umeclidin/Vilanter 1 puff INHALATION RT-DAILY 05/25/21 10/19/21 History [Trelegy Ellipta 200-62.5-25] Multivit-Mins/Iron/Folic/Lycop 1 tab PO DAILY 05/25/21 10/19/21 History [Centrum Men's Tablet] Escitalopram [Lexapro] 10 mg PO HS 10/19/21 10/19/21 History rOPINIRole HCL [Requip] 1 mg PO HS 10/19/21 10/19/21 History Albuterol Nebulized [Ventolin 2.5 mg INHALATION Q4H PRN #25 each 10/20/21 Rx Nebulized] predniSONE 50 mg PO DAILY #5 tab 10/20/21 Rx Allergies Allergy/AdvReac Type Severity Reaction Status Date / Time No Known Allergies Allergy Verified 10/19/21 23:07 Physical Exam Vitals: Vital Signs Temp Pulse Resp BP Pulse Ox 10/20/21 01:30 71 18 128/82 95 10/20/21 01:12 72 10/20/21 01:06 69 10/19/21 23:20 75 10/19/21 23:13 74 10/19/21 23:00 72 16 127/78 94 L 10/19/21 21:15 98.1 F 78 18 127/81 94 L 10/19/21 21:00 20 Intake and Output 10/19/21 10/19/21 10/20/21 14:59 22:59 06:59 Other: Weight 90.265 kg Constitutional: No acute distress, conversant, pleasant Eyes: Anicteric sclerae, moist conjunctiva, Pupils equal round reactive to light ENMT: NC/AT Oropharynx clear, no erythema, or exudates Neck: Supple, FROM, no masses, or JVD No carotid bruits No thyromegaly Lungs: Prolonged expiratory phase with expiratory wheezing Clear to percussion Normal respiratory effort, no accessory muscle use Cardiovascular: Heart regular in rate and rhythm, No murmurs, gallops, or rubs No peripheral edema Abdominal: Soft Nontender, no guarding, rebound or rigidity Abdomen moving with respiration Normoactive bowel sounds No hepatomegaly, No splenomegaly No palpable mass No abdominal wall hernia noted Skin: Normal temperature, tone, texture, turgor No induration No subcutaneous nodules No rash, lesions No ulcers Extremities: No digital cyanosis No clubbing Pedal pulses intact and symmetrical Radial pulses intact and symmetrical No calf tenderness Psychiatric: Alert and oriented to person, place and time Appropriate affect fair judgement Neuro Muscles Strength 5/5 in all 4 extremities Sensation to light touch grossly present throughout Cranial nerves II-XII grossly intact No focal sensory deficits Lymphatics: no palpable cervical or supraclavicular , or inguinal lymph nodes Results CBC & Chem 7: 10/19/21 22:30 10/19/21 22:30 Labs: Abnormal Lab Results - Last 24 Hours (Table) 10/19/21 10/19/21 10/19/21 Range/Units 22:30 22:30 23:15 WBC 13.7 H (3.8-10.6) k/uL Neutrophils # 10.3 H (1.3-7.7) k/uL BUN 27 H (9-20) mg/dL Creatinine 0.64 L (0.66-1.25) mg/dL Glucose 114 H (74-99) mg/dL Urine Protein Trace H (Negative) Assessment and Plan Assessment: Acute COPD exacerbation Supplemental oxygen as needed Breathing treatments around the clock Breathing treatment as needed Resume home inhalers Systemic IV steroids Check Covid testing Chest x-ray no acute pathology Supportive care Pulmonary consult for evaluation Chronic conditions History of prostate cancer and esophageal cancer Hypertension, continue blood pressure meds Abdominal hernia follow-up outpatient for surgical repair DVT prophylaxis heparin subcu 3 times a day Patient is full code Anticipated length of stay more than 2 midnights Anticipated discharge home
[2021-10-20] MEDS ORDERED: MAG HYDROX/AL HYDROX/SIMETH 30 ML, HYOSCYAMINE ELIXIR 10 ML PO ONE ×2 (03:39)
[2021-10-20] MEDS: methylPREDNISolone SOD SUCCI 125 MG/2 ML VIAL IV SCH ×3 (06:05→17:08)
[2021-10-20] MEDS: SYMBICORT 80-4.5 MCG INHALER INHALATION SCH ×2 (07:10→08:18)
[2021-10-20] MEDS: IPRATROPIUM-ALBUTEROL 3 ML NEB INHALATION SCH ×4 (07:15→19:43)
[2021-10-20] MEDS ORDERED: IPRATROPIUM 0.5 MG/2.5 ML NEBU INHALATION SCH (08:00)
[2021-10-20] MEDS ORDERED: ALBUTEROL NEBULIZED 2.5 MG/3 ML INHALATION SCH (08:00)
[2021-10-20] MEDS ORDERED: PANTOPRAZOLE 40 MG/10 ML VIAL IV SCH (09:00)
[2021-10-20] MEDS: LOSARTAN 50 MG TAB PO SCH (09:30)
[2021-10-20] MEDS: cloNIDine HCL 0.1 MG TAB PO SCH ×2 (09:31→23:04)
[2021-10-20] MEDS: HEPARIN SODIUM,PORCINE/PF 5,000 UNIT/0.5 ML SYRINGE SQ SCH ×2 (09:31→17:09)
[2021-10-20] MEDS: PANTOPRAZOLE 40 MG TABLET PO SCH (09:31)
[2021-10-20] MEDS ORDERED: HYDROcodone/APAP 5-325MG 1 EACH TAB PO PRN (15:02)
[2021-10-20] MEDS ORDERED: ACETAMINOPHEN TAB 500 MG TAB PO PRN (15:02)
[2021-10-20] MEDS ORDERED: FORMOTEROL FUMARATE 20 MCG/2 ML NEBU INHALATION SCH (15:02)
[2021-10-20] MEDS ORDERED: BUDESONIDE 1 MG/2 ML NEBU INHALATION SCH (15:02)
[2021-10-20] MEDS ORDERED: ALPRAZolam 0.25 MG TAB PO PRN (15:02)
[2021-10-20] MEDS ORDERED: TEMAZEPAM 15 MG CAP PO PRN (15:02)
--- NOTE | 2021-10-20 16:18 | HP ---
HISTORY AND PHYSICAL I am covering for Dr. Robbins. CHIEF COMPLAINT: Shortness of breath. HISTORY OF PRESENT ILLNESS: This is a 66-year-old gentleman with a past medical history of COPD, history of GERD, hypertension, history of neuropathy, history of esophogeal cancer treated with surgery in 2008, being followed by Dr. Robbins and Dr. Mckenzie. The patient has been complaining of increased shortness of breath over the past several days. The patient also had cough and congestion. The patient was doing breathing treatments every 4 hours without much relief and the patient was admitted for further evaluation. White count is 13.7. COVID-19 was negative. The patient has taken the Covid vaccine. A chest x-ray which was reviewed personally showed some increased bronchovascular markings and also gastric pull-through procedure. There is no history of fever, rigors or chills at this time. PAST MEDICAL HISTORY: History of COPD, GERD, hypertension, history of neuropathy, history of esophageal cancer and gastric pull-through surgery. MEDICATIONS: Medications prior to admission include home medications are multivitamins in DuoNeb, fluticasone, Ellipta, clonidine, losartan, Pepcid, omeprazole, Lexapro, prednisone. ALLERGIES: None. FAMILY HISTORY: History of colon cancer in the family. SOCIAL HISTORY: Previous history of smoking, no history of current smoking or alcohol intake. REVIEW OF SYSTEMS: ENT: Diminished vision. Cardiovascular: As mentioned. GI: As mentioned earlier. : Nervous System: No numbness or weakness. Allergy: No asthma. Musculoskeletal: As mentioned. Hematology/Oncology: As mentioned earlier. Endocrine: As mentioned earlier. Constitutional As mentioned earlier. Dermatology: Negative. Psychology: As mentioned. PHYSICAL EXAM: Blood pressure is 140/80, respirations 18, temperature 98 degrees, pulse ox 94% on 2 L. HEENT: Normal. CARDIOVASCULAR: S1 and S2. Breath sounds diminished at the bases. LUNGS: Breathing efforts are markedly increased. Bilateral scattered rhonchi and crackles. Expiratory wheezing also present. ABDOMEN: Soft, nontender. No mass palpable. LEGS: No edema no swelling. NERVOUS SYSTEM: As mentioned earlier. Moves all extremities. LYMPHATICS: No lymph node enlargement. SKIN: No rashes. JOINTS: No active deforming arthropathy. LABS: WBC 13.2, hemoglobin 13.9, sodium 137, potassium 4.2. ASSESSMENT: 1. Chronic obstructive pulmonary disease acute exacerbation with acute purulent tracheobronchitis rule out bronchopneumonia with acute hypoxic respiratory failure. 2. History of chronic obstructive pulmonary disease. 3. Gastroesophageal reflux disease. 4. Hypertension. 5. Esophageal cancer with gastric pull-through surgery. 6. History of sleep apnea. 7. History of prostate cancer. 8. History of hernia surgery. 9. History of degenerative joint disease. 10.History of anxiety, depression. 11.History of nicotine dependence. 12.Full code. RECOMMENDATIONS: This 66-year-old gentleman presented with multiple complex medical issues, at this time I recommend continue the current medication, intensive bronchodilator treatment, empiric antibiotics, steroids, pulmonary consultation. Guarded prognosis because of multiple complex medical issues. Further recommendations to follow. See orders for details. Obtain cultures also. MMODL / IJN: [id number] /
--- NOTE | 2021-10-20 17:02 | P.CNPUL ---
History of Present Illness Consult date: 10/20/21 Reason for consult: dyspnea History of present illness: This is a 66-year-old male patient, known history of COPD and the patient has a mild case of COPD with an FEV1 of 2.14 L which is 62% of predicted and is a former smoker and the patient remains an option unit on outpatient basis regarding his COPD and the patient has been fully vaccinated for COVID 19 including a booster shot, prostate cancer, esophageal cancer surgically resected with esophagectomy and gastric pull and the patient also has obstructive sleep apnea that resolved after losing approximately 150 pounds. He is also known to have hypertension as and other comorbid conditions including chronic anxiety, depression and previous hospitalizations for pneumonias.. The patient came into the emergency department because of shortness of breath and cough and congestion of one week duration. His chest x-ray is consistent with his previous esophagectomy as the patient had a gastric pull and there is increased haziness in the right lung which was present also on previous chest x-ray. Nevertheless, I do not appreciate any other new onset pulmonary infiltrates or consolidation. The patient is currently on oxygen at 2 L per minute nasal cannula with pulse ox of 99%. He is afebrile. He is hemodynamically stable. Blood work shows a white cell count of 15.7 with a hemoglobin of 13.9 and a d-dimer of 0.29 with a normal coagulation profile, the patient has normal electrolytes, normal renal function, normal liver function tests, troponins are negative, UA is negative and the COVID 19 testing was also negative. Review of Systems Constitutional: Denies chills, Denies fever Eyes: denies blurred vision, denies pain Ears, nose, mouth and throat: Denies headache, Denies sore throat Cardiovascular: Denies chest pain, Denies shortness of breath Respiratory: Reports congestion, Reports dyspnea, Reports respiratory infections, positive cough Gastrointestinal: Denies abdominal pain, Denies diarrhea, Denies nausea, Denies vomiting Musculoskeletal: Denies myalgias Integumentary: Denies pruritus, Denies rash Neurological: Denies numbness, Denies weakness Psychiatric: Denies anxiety, Denies depression Endocrine: Denies fatigue, Denies weight change Past Medical History Past Medical History: Cancer, COPD, GERD/Reflux, Hypertension Additional Past Medical History / Comment(s): Neuropathy, hx esophageal cancer treated with surgery - 2008, past hx of sleep apnea and diabetes but none now after 150 pound weight loss, tremors. prostate cancer History of Any Multi-Drug Resistant Organisms: None Reported Past Surgical History: Appendectomy, Hernia Repair, Joint Replacement, Orthopedic Surgery Additional Past Surgical History / Comment(s): Bilateral elbow, bilateral wrist carpal tunnel, bilateral rotator cuff surgery, right knee arthroscopy, right knee replacement, surgery for esophageal cancer (removed part of esophagus and removed part of stomach making it into carrot shape per patient), hernia repair X3. robotic prostatectomy with bilateral stent placement and pelvic lymph node removal 08/11/20 Past Anesthesia/Blood Transfusion Reactions: Previous Problems w/ Anesthesia Additional Past Anesthesia/Blood Transfusion Reaction / Comment(s): can not lay flat- "stomach acid will come out my nose" Past Psychological History: Anxiety, Depression Additional Psychological History / Comment(s): Pt lives at home with his . Pt is normally independent. Smoking Status: Former smoker Past Alcohol Use History: None Reported Additional Past Alcohol Use History / Comment(s): Patient was a smoker one pack per day for 10 years and quit ago 32 years ago. He lives at home with his . He is retired [employer] with exposure to asbestos. There is one cat, a [place] and a Mountain terrier in the home. Patient enjoys camping, bicycling, gardening and yard work. No recent travel outside of [place]. The patient has been camping in [place]. Past Drug Use History: None Reported - Past Family History Father Family Medical History: Cancer Additional Family Medical History / Comment(s): COLON Cancer. Mother Family Medical History: Cancer, Deep Vein Thrombosis (DVT) Additional Family Medical History / Comment(s): Brain aneurysm. Medications and Allergies Home Medications Medication Instructions Recorded Confirmed Type Omeprazole 40 mg PO HS 04/26/17 10/19/21 History cloNIDine HCL [Catapres] 0.1 mg PO BID 10/02/18 10/19/21 History Losartan Potassium 100 mg PO DAILY 03/20/19 10/19/21 History Famotidine [Pepcid] 20 mg PO BID 06/08/19 10/19/21 History Ipratropium-Albuterol Nebulize 3 ml INHALATION QID 06/08/19 10/19/21 History [Duoneb 0.5 mg-3 mg/3 ml Soln] Omeprazole 20 mg PO AC-BID 06/08/19 10/19/21 History Fluticasone/Umeclidin/Vilanter 1 puff INHALATION RT-DAILY 05/25/21 10/19/21 History [Trelegy Ellipta 200-62.5-25] Multivit-Mins/Iron/Folic/Lycop 1 tab PO DAILY 05/25/21 10/19/21 History [Centrum Men's Tablet] Escitalopram [Lexapro] 10 mg PO HS 10/19/21 10/19/21 History rOPINIRole HCL [Requip] 1 mg PO HS 10/19/21 10/19/21 History Albuterol Nebulized [Ventolin 2.5 mg INHALATION Q4H PRN #25 each 10/20/21 Rx Nebulized] predniSONE 50 mg PO DAILY #5 tab 10/20/21 Rx Allergies Allergy/AdvReac Type Severity Reaction Status Date / Time No Known Allergies Allergy Verified 10/19/21 23:07 Physical Exam Vitals: Vital Signs Temp Pulse Pulse Pulse Resp BP BP 10/20/21 16:02 98 10/20/21 14:21 99.0 F 90 18 145/81 10/20/21 12:05 98 10/20/21 11:48 76 10/20/21 11:00 77 19 10/20/21 10:50 82 18 10/20/21 10:40 81 18 10/20/21 10:30 83 16 10/20/21 10:21 79 17 10/20/21 10:10 80 18 10/20/21 10:00 78 21 10/20/21 09:40 85 12 10/20/21 09:31 74 10 L 10/20/21 07:47 64 21 122/64 10/20/21 07:25 74 10/20/21 07:11 68 10/20/21 06:07 97.8 F 66 18 124/77 10/20/21 05:00 68 18 131/83 10/20/21 03:00 70 18 135/83 10/20/21 01:30 71 18 128/82 10/20/21 01:12 72 10/20/21 01:06 69 10/19/21 23:20 75 10/19/21 23:13 74 10/19/21 23:00 72 16 127/78 10/19/21 21:15 98.1 F 78 18 127/81 10/19/21 21:00 20 Pulse Ox 10/20/21 16:02 10/20/21 14:21 95 10/20/21 12:05 10/20/21 11:48 10/20/21 11:00 10/20/21 10:50 10/20/21 10:40 10/20/21 10:30 10/20/21 10:21 10/20/21 10:10 10/20/21 10:00 10/20/21 09:40 10/20/21 09:31 10/20/21 07:47 94 L 10/20/21 07:25 10/20/21 07:11 10/20/21 06:07 95 10/20/21 05:00 94 L 10/20/21 03:00 95 10/20/21 01:30 95 10/20/21 01:12 10/20/21 01:06 10/19/21 23:20 10/19/21 23:13 10/19/21 23:00 94 L 10/19/21 21:15 94 L 10/19/21 21:00 Intake and Output 10/20/21 10/20/21 10/20/21 06:59 14:59 22:59 Intake Total 100 Balance 100 Intake: Intake, IV Titration 100 Amount Sodium Chloride 0.9% 1, 100 000 ml @ 100 mls/hr IV . Q10H [facility] Rx#:[id number] Other: Voiding Method Urinal Weight 90.265 kg GENERAL EXAM: Alert, pleasant, 64-year-old white male on 2 L of oxygen and the pulse ox of 91%, comfortable in no apparent distress. HEAD: Normocephalic/atraumatic. EYES: Normal reaction of pupils, equal size. Conjunctiva pink, sclera white. NOSE: Clear with pink turbinates. THROAT: No erythema or exudates. NECK: No masses, no JVD, no thyroid enlargement, no adenopathy. CHEST: No chest wall deformity. Symmetrical expansion. LUNGS: Equal air entry with bronchial sounds over right posterior lung, coarse is better crackles at bilateral bases, and left lower lobe and left mid lung CVS: Regular rate and rhythm, normal S1 and S2, no gallops, no murmurs, no rubs ABDOMEN: Soft, nontender. No hepatosplenomegaly, normal bowel sounds, no guarding or rigidity. EXTREMITIES: No clubbing, no edema, no cyanosis, 2+ pulses and upper and lower extremities. MUSCULOSKELETAL: Muscle strength and tone normal. SPINE: No scoliosis or deformity SKIN: No rashes CENTRAL NERVOUS SYSTEM: Alert and oriented -3. No focal deficits, tone is normal in all 4 extremities. PSYCHIATRIC: Alert and oriented -3. Appropriate affect. Intact judgment and insight. Results - Laboratory Findings CBC and BMP: 10/19/21 22:30 10/19/21 22:30 PT/INR, D-dimer PT 10.3 sec (9.0-12.0) 10/19/21 22:30 INR 1.0 (<1.2) 10/19/21 22:30 D-Dimer 0.29 mg/L FEU (<0.60) 10/19/21 22:30 Abnormal lab findings: Abnormal Labs 10/19/21 10/19/21 10/19/21 22:30 22:30 23:15 WBC 13.7 H Neutrophils # 10.3 H BUN 27 H Creatinine 0.64 L Glucose 114 H Urine Protein Trace H - Diagnostic Findings Chest x-ray: image reviewed Assessment and Plan Plan: #1. Acute COPD exacerbation with secondary shortness of breath. No clear evidence of pneumonia. Chest x-ray findings are essentially chronic and consistent with a gastric fold post esophagectomy without any clear airspace disease or infiltration. #2. COPD, mild an FEV1 of 62% of predicted at baseline and the patient admitted on Trilogy on outpatient basis #3. Previous history of left mid lung pneumonia, thought to be community acquired, treated with antibiotics #4. History of esophageal cancer with history of surgical resection and gastric pull-through #5. GERD/reflux #6. History of prostate cancer, the patient underwent a radical prostatectomy with bilateral pelvic lymph node dissection and the patient had bilateral stent placement. #7. Former smoker, quit 35 years ago, carries 25 years of smoking half a pack to 1 pack a day #8. Past history of sleep apnea not currently requiring CPAP related to large weight loss #9 multiple orthopedic surgeries status post right total shoulder arthroplasty #10 peripheral neuropathy, likely chemotherapy-induced received at time of the esophageal cancer #11 degenerative arthritis #12 Tremors/parkinson's disease Plan The patient's COVID 19 testing was negative and the patient has been fully vaccinated Continue DuoNeb nebulized treatments around the clock Continue IV Solu Medrol Empiric antibiotic coverage with IV Rocephin Resume all medications We'll continue to follow
[2021-10-20] MEDS: FORMOTEROL FUMARATE 20 MCG/2 ML NEBU INHALATION SCH (19:43)
[2021-10-20] MEDS: BUDESONIDE 1 MG/2 ML NEBU INHALATION SCH (19:43)
[2021-10-20] MEDS: ESCITALOPRAM 10 MG TAB PO SCH (23:04)
[2021-10-21] MEDS: SODIUM CHLORIDE 0.9% 1,000 ML IV SCH ×3 (00:07→23:27)
[2021-10-21] MEDS: methylPREDNISolone SOD SUCCI 125 MG/2 ML VIAL IV SCH ×5 (00:14→23:27)
[2021-10-21] MEDS: HEPARIN SODIUM,PORCINE/PF 5,000 UNIT/0.5 ML SYRINGE SQ SCH ×4 (00:14→23:27)
[2021-10-21] MEDS: LOSARTAN 50 MG TAB PO SCH (07:58)
[2021-10-21] MEDS: PANTOPRAZOLE 40 MG TABLET PO SCH (07:58)
[2021-10-21] MEDS: BUDESONIDE 1 MG/2 ML NEBU INHALATION SCH ×2 (08:05→20:15)
[2021-10-21] MEDS: FORMOTEROL FUMARATE 20 MCG/2 ML NEBU INHALATION SCH ×2 (08:05→20:15)
[2021-10-21] MEDS: IPRATROPIUM-ALBUTEROL 3 ML NEB INHALATION SCH ×4 (08:05→20:15)
[2021-10-21 08:46] LABS: Basophils # (A) 0.02 X 10*3/uL (0.00-0.10); Basophils % (A) 0.1 %; Eosinophils # (A) 0 X 10*3/uL (0.04-0.35); Eosinophils % (A) 0 %; HCT 38.4 % (39.6-50.0); HGB 12.1 g/dL (13.0-17.0); Lymphocytes % (A) 4.4 %; MCHC 31.5 g/dL (32.0-37.0); MCV 88.9 fL (80.0-97.0); Monocytes # (A) 0.33 X 10*3/uL (0.20-1.00); Monocytes % (A) 1.8 %; Neutrophils # (A) 16.91 X 10*3/uL (1.80-7.70); Platelet Count 225 X 10*3/uL (140-440); RBC 4.32 X 10*6/uL (4.40-5.60); RDW 15.7 % (11.5-14.5); WBC 18.19 X 10*3/uL (4.50-10.00)
[2021-10-21 09:15] LABS: ALT 15 U/L (10-49); AST 14 U/L (14-35); African American GFR (CKD) 113.2 (60.0-200.0); Albumin 3.8 g/dL (3.8-4.9); Albumin/Globulin Ratio 1.73 (1.60-3.17); Alkaline Phosphatase 74 U/L (41-126); BUN/Creat Ratio 41.71 Ratio (12.00-20.00); Blood Urea Nitrogen 29.2 mg/dL (9.0-27.0); Chloride 108 mmol/L (96-109); Globulin 2.2 g/dL (1.6-3.3); Glucose 158 mg/dL (70-110); Magnesium 2.4 mg/dL (1.5-2.4); Non-African American GFR(CKD) 97.7 (60.0-200.0); Phosphorus 3.8 mg/dL (2.4-5.1); Potassium 4.6 mmol/L (3.5-5.5); Sodium 140 mmol/L (135-145); Total Bilirubin <0.20 mg/dL (0.30-1.20)
[2021-10-21] MEDS: cloNIDine HCL 0.1 MG TAB PO SCH ×2 (10:08→21:11)
[2021-10-21] MEDS: MULTIVITAMINS, THERA 1 EACH TAB PO SCH (11:45)
--- NOTE | 2021-10-21 12:51 | P.PN ---
Subjective Progress Note Date: 10/21/21 10/21/2021, the patient is being seen for a follow-up. Doing better. Less focused bronchospastic less congested and the cough has subsided compared to yesterday. The patient remains on DuoNeb nebulized treatments around the clock, the patient remains on budesonide and Pulmicort overestimates twice a day and the patient is also receiving IV Solu Medrol 60 mg every 6 hours. No pleurisy. No hemoptysis to no chest pain. He is pleasant. He reports that he is improving. White cell count of 18 with a hemoglobin of 12.1. Rest of the blood work and electrodes are all within normal limits. BUN is at 29 with a creatinine of 0.7. UA has been negative. COVID 19 testing is negative. Pro- calcitonin level is at 0.03. Objective - Vital Signs Vital signs: Vital Signs Temp 98.0 F 10/21/21 07:40 Pulse 90 10/21/21 12:02 Resp 20 10/21/21 08:00 BP 139/76 10/21/21 07:40 Pulse Ox 94 L 10/21/21 08:09 Intake & Output 10/20/21 10/21/21 10/21/21 18:59 06:59 18:59 Intake Total 100 240 Balance 100 240 Weight 90.265 kg Intake: Intake, IV Titration 100 Amount Sodium Chloride 0.9% 1, 100 000 ml @ 50 mls/hr IV . Q20H [facility] Rx#:[id number] Oral 240 Other: Voiding Method Urinal # Voids 2 - Exam GENERAL EXAM: Alert, pleasant, 64-year-old white male on 2 L of oxygen and the pulse ox of 91%, comfortable in no apparent distress. HEAD: Normocephalic/atraumatic. EYES: Normal reaction of pupils, equal size. Conjunctiva pink, sclera white. NOSE: Clear with pink turbinates. THROAT: No erythema or exudates. NECK: No masses, no JVD, no thyroid enlargement, no adenopathy. CHEST: No chest wall deformity. Symmetrical expansion. LUNGS: Equal air entry with bronchial sounds over right posterior lung, coarse is better crackles at bilateral bases, and left lower lobe and left mid lung CVS: Regular rate and rhythm, normal S1 and S2, no gallops, no murmurs, no rubs ABDOMEN: Soft, nontender. No hepatosplenomegaly, normal bowel sounds, no guarding or rigidity. EXTREMITIES: No clubbing, no edema, no cyanosis, 2+ pulses and upper and lower extremities. MUSCULOSKELETAL: Muscle strength and tone normal. SPINE: No scoliosis or deformity SKIN: No rashes CENTRAL NERVOUS SYSTEM: Alert and oriented -3. No focal deficits, tone is normal in all 4 extremities. PSYCHIATRIC: Alert and oriented -3. Appropriate affect. Intact judgment and insight. - Labs CBC & Chem 7: 10/21/21 06:31 10/21/21 06:31 Labs: Abnormal Lab Results - Last 24 Hours (Table) 10/21/21 10/21/21 Range/Units 06:31 06:31 WBC 18.19 H (4.50-10.00) X 10*3/uL RBC 4.32 L (4.40-5.60) X 10*6/uL Hgb 12.1 L (13.0-17.0) g/dL Hct 38.4 L (39.6-50.0) % MCHC 31.5 L (32.0-37.0) g/dL RDW 15.7 H (11.5-14.5) % Immature Gran # 0.13 H (0.00-0.04) X 10*3/uL Neutrophils # 16.91 H (1.80-7.70) X 10*3/uL Lymphocytes # 0.80 L (0.90-5.00) X 10*3/uL Eosinophils # 0 L (0.04-0.35) X 10*3/uL BUN 29.2 H (9.0-27.0) mg/dL BUN/Creatinine Ratio 41.71 H (12.00-20.00) Ratio Glucose 158 H (70-110) mg/dL Total Bilirubin <0.20 L (0.30-1.20) mg/dL Total Protein 6.0 L (6.2-8.2) g/dL Assessment and Plan Plan: #1. Acute COPD exacerbation with secondary shortness of breath. No clear evidence of pneumonia. Chest x-ray findings are essentially chronic and co nsistent with a gastric fold post esophagectomy without any clear airspace disease or infiltration. Clinically improving the patient is less short of breath and a cough and the bronchospasm has subsided compared to yesterday #2. COPD, mild an FEV1 of 62% of predicted at baseline and the patient admitted on Trilogy on outpatient basis #3. Previous history of left mid lung pneumonia, thought to be community acquired, treated with antibiotics #4. History of esophageal cancer with history of surgical resection and gastric pull-through #5. GERD/reflux #6. History of prostate cancer, the patient underwent a radical prostatectomy with bilateral pelvic lymph node dissection and the patient had bilateral stent placement. #7. Former smoker, quit 35 years ago, carries 25 years of smoking half a pack to 1 pack a day #8. Past history of sleep apnea not currently requiring CPAP related to large weight loss #9 multiple orthopedic surgeries status post right total shoulder arthroplasty #10 peripheral neuropathy, likely chemotherapy-induced received at time of the esophageal cancer #11 degenerative arthritis #12 Tremors/parkinson's disease Plan The patient is clinically improving and will continue same treatment for now The patient's COVID 19 testing was negative and the patient has been fully vaccinated Continue DuoNeb nebulized treatments around the clock Continue IV Solu Medrol Empiric antibiotic coverage with IV Rocephin The pro-calcitonin level LEVEL IS LOW
--- NOTE | 2021-10-21 18:24 | PN ---
PROGRESS NOTE DATE OF SERVICE: 10/21/2021 I am covering for Dr. Robbins. This 66-year-old gentleman admitted with COPD exacerbation is being closely monitored. Patient is breathing slightly better today. Pulmonary, Dr. Mckenzie, is following the patient. No chest pain. No palpitations. No fever. PHYSICAL EXAMINATION: Alert and oriented x3. Pulse 94, blood pressure 113/58, respiration 18, temperature 98.4, pulse ox 98% on 2 L. HEENT: Conjunctivae normal. Oral mucosa moist. NECK: No jugular venous distention. No lymph node enlargement. CARDIOVASCULAR: S1, S2, muffled. No S3, no S4, RESPIRATORY: Diminished breath sounds at the bases. A few scattered rhonchi. ABDOMEN: Soft, nontender. LEGS: No edema, no swelling. NERVOUS SYSTEM: No focal deficits. LABS: WBC 18, hemoglobin 12.1. Other labs are noted. ASSESSMENT: 1. Chronic obstructive pulmonary disease acute exacerbation with acute purulent tracheobronchitis with possible bronchopneumonia and acute hypoxic respiratory failure. 2. History of chronic obstructive pulmonary disease. 3. Gastroesophageal reflux disease. 4. Hypertension. 5. Esophageal cancer with gastric pull-through surgery. 6. History of sleep apnea. 7. History of prostate cancer. 8. History of hernia surgery. 9. History of DJD. 10.History of anxiety, depression. 11.History of nicotine dependence. 12.FULL CODE. RECOMMENDATION AND DISCUSSION: Continue current management. Continue the antibiotics, bronchodilators and steroids. Closely with Dr. Mckenzie. Guarded prognosis. Further recommendations to follow. MMODL / IJN: [id number] /
[2021-10-21] MEDS: ESCITALOPRAM 10 MG TAB PO SCH (21:12)
[2021-10-22] MEDS: methylPREDNISolone SOD SUCCI 125 MG/2 ML VIAL IV SCH ×3 (05:23→20:40)
[2021-10-22] MEDS: BUDESONIDE 1 MG/2 ML NEBU INHALATION SCH ×2 (07:58→20:03)
[2021-10-22] MEDS: IPRATROPIUM-ALBUTEROL 3 ML NEB INHALATION SCH ×4 (07:58→20:03)
[2021-10-22] MEDS: FORMOTEROL FUMARATE 20 MCG/2 ML NEBU INHALATION SCH ×2 (07:58→20:03)
[2021-10-22] MEDS: LOSARTAN 50 MG TAB PO SCH (08:30)
[2021-10-22] MEDS: HEPARIN SODIUM,PORCINE/PF 5,000 UNIT/0.5 ML SYRINGE SQ SCH ×2 (08:31→16:16)
[2021-10-22] MEDS: PANTOPRAZOLE 40 MG TABLET PO SCH (08:31)
[2021-10-22] MEDS: cloNIDine HCL 0.1 MG TAB PO SCH ×2 (08:31→20:42)
--- NOTE | 2021-10-22 12:12 | P.PN ---
Subjective Progress Note Date: 10/22/21 The patient is seen today 10/22/2021 in follow-up on the regular medical floor. He is currently sitting up in bed. Awake and alert in no acute distress. Breathing a bit easier today compared to yesterday. States not quite back to his baseline. Still has some chest tightness. Still some loose nonproductive cough. Chest x-ray had revealed no acute pulmonary process. No new labs today. He is receiving DuoNeb inhalations, Pulmicort and Perforomist inhalations, IV Solu-Medrol. Empiric antibiotics in the form of ceftriaxone. Objective - Vital Signs Vital signs: Vital Signs Temp 97.8 F 10/22/21 08:00 Pulse 68 10/22/21 11:53 Resp 18 10/22/21 08:00 BP 144/76 10/22/21 08:00 Pulse Ox 96 10/22/21 08:00 Intake & Output 10/21/21 10/22/21 10/22/21 18:59 06:59 18:59 Intake Total 480 180 Output Total 0 Balance 480 0 180 Intake: Oral 480 180 Output: Emesis 0 Other: Voiding Method Urinal # Voids 4 - Exam GENERAL EXAM: Alert, very pleasant 66-year-old gentleman, on 3 L nasal cannula with O2 saturations in the mid 90s, comfortable in no apparent distress. HEAD: Normocephalic. EYES: Normal reaction of pupils, equal size. NOSE: Clear with pink turbinates. THROAT: No erythema or exudates. NECK: No masses, no JVD. CHEST: No chest wall deformity. LUNGS: Equal air entry with faint end expiratory wheeze, diminished CVS: S1 and S2 normal with no audible murmur, regular rhythm. ABDOMEN: No hepatosplenomegaly, normal bowel sounds, no guarding or rigidity. SPINE: No scoliosis or deformity SKIN: No rashes CENTRAL NERVOUS SYSTEM: No focal deficits, tone is normal in all 4 extremities. EXTREMITIES: There is no peripheral edema. No clubbing, no cyanosis. Peripheral pulses are intact. - Labs CBC & Chem 7: 10/21/21 06:31 10/21/21 06:31 Assessment and Plan Assessment: 1 Acute COPD exacerbation with secondary shortness of breath. No clear evidence of pneumonia. Chest x-ray findings are essentially chronic and consistent with a gastric fold post esophagectomy without any clear airspace disease or infiltration. Clinically improving the patient is less short of breath and a cough and the bronchospasm has subsided compared to yesterday 2 COPD, mild an FEV1 of 62% of predicted at baseline and the patient admitted on Trilogy on outpatient basis 3 Previous history of left mid lung pneumonia, thought to be community acquired, treated with antibiotics 4 History of esophageal cancer with history of surgical resection and gastric pull-through 5 GERD/reflux 6 History of prostate cancer, the patient underwent a radical prostatectomy with bilateral pelvic lymph node dissection and the patient had bilateral stent placement. 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 I, the cosigning physician, performed a history & physical examination of the patient. Lungs sounds with faint end expiratory wheeze. Maintaining good O2 saturations in the 90s on 3 L/m per nasal cannula. I discussed the assessment and plan of care with my nurse practitioner, Amber Hernandez. I attest to the above note as dictated by her.
[2021-10-22] MEDS: MULTIVITAMINS, THERA 1 EACH TAB PO SCH (13:22)
--- NOTE | 2021-10-22 17:58 | PN ---
PROGRESS NOTE DATE OF SERVICE: 10/22/2021 I am covering for Dr. Robbins. This 66-year-old gentleman who was admitted with COPD acute exacerbation, acute purulent tracheobronchitis is on bronchodilators and steroids and pulmonary following the patient. Patient is feeling much better. No chest pain. No palpitations. No fever. PHYSICAL EXAMINATION: Alert and oriented x3. Pulse 68, blood pressure 129/60, respiration 18, temperature 98 degrees, pulse ox 97% on room air. HEENT: Conjunctivae normal. Oral mucosa moist. NECK: No jugular venous distention. No lymph node enlargement. CARDIOVASCULAR: S1, S2, muffled. No S3, no S4, RESPIRATORY: Diminished breath sounds at the bases. A few scattered rhonchi. ABDOMEN: Soft, nontender. LEGS: No edema, no swelling. NERVOUS SYSTEM: No focal deficits. LABS: WBC 11, hemoglobin 12.1. ASSESSMENT: 1. Chronic obstructive pulmonary disease acute exacerbation with acute purulent tracheobronchitis, possible early bronchopneumonia with acute hypoxic respiratory failure. 2. History of chronic obstructive pulmonary disease. 3. Gastroesophageal reflux disease. 4. Hypertension. 5. History of esophageal cancer with gastric pull-through surgery. 6. History of sleep apnea. 7. History of prostate cancer. 8. History of hernia surgery. 9. History of degenerative joint disease. 10.History of anxiety, depression. 11.History of nicotine dependence. 12.FULL CODE. RECOMMENDATIONS: Recommend to continue current management, continue symptomatic treatment. Continue with IV steroids. Continue with bronchodilators, antibiotics. Closely follow with Pulmonary. Guarded prognosis. Further recommendations to follow. MMODL / IJN: [id number] /
[2021-10-22] MEDS: ESCITALOPRAM 10 MG TAB PO SCH (20:42)
[2021-10-23] MEDS: methylPREDNISolone SOD SUCCI 125 MG/2 ML VIAL IV SCH ×4 (01:23→18:05)
[2021-10-23] MEDS: HEPARIN SODIUM,PORCINE/PF 5,000 UNIT/0.5 ML SYRINGE SQ SCH ×3 (01:23→16:00)
[2021-10-23] MEDS: FORMOTEROL FUMARATE 20 MCG/2 ML NEBU INHALATION SCH ×2 (07:44→20:06)
[2021-10-23] MEDS: BUDESONIDE 1 MG/2 ML NEBU INHALATION SCH ×2 (07:44→19:54)
[2021-10-23] MEDS: IPRATROPIUM-ALBUTEROL 3 ML NEB INHALATION SCH ×4 (07:45→19:52)
[2021-10-23] MEDS: LOSARTAN 50 MG TAB PO SCH (09:16)
[2021-10-23] MEDS: PANTOPRAZOLE 40 MG TABLET PO SCH (09:16)
[2021-10-23] MEDS: cloNIDine HCL 0.1 MG TAB PO SCH ×2 (09:17→21:39)
[2021-10-23] MEDS: SODIUM CHLORIDE 0.9% 1,000 ML IV SCH (09:19)
[2021-10-23] MEDS: MULTIVITAMINS, THERA 1 EACH TAB PO SCH (12:24)
--- NOTE | 2021-10-23 16:53 | P.PN ---
Subjective Progress Note Date: 10/23/21 Principal diagnosis: COPD exacerbation. The patient is seen today 10/22/2021 in follow-up on the regular medical floor. He is currently sitting up in bed. Awake and alert in no acute distress. Breathing a bit easier today compared to yesterday. States not quite back to his baseline. Still has some chest tightness. Still some loose nonproductive cough. Chest x-ray had revealed no acute pulmonary process. No new labs today. He is receiving DuoNeb inhalations, Pulmicort and Perforomist inhalations, IV Solu-Medrol. Empiric antibiotics in the form of ceftriaxone. Progress note dated 10/23/2021. The patient is again seen in room 632. He was seen by our nurse practitioner yesterday. The patient's on 2 L of nasal cannula. He states that he is feeling better, not certainly back to baseline. He does have shortness of breath on exertion. He has chest congestion, coughing, and wheezing. The patient is getting saline at 50 mL an hour. No new laboratory data today. No chest x-ray today. Objective - Vital Signs Vital signs: Vital Signs Temp 98.0 F 10/23/21 14:00 Pulse 75 10/23/21 15:59 Resp 18 10/23/21 14:00 BP 123/56 10/23/21 14:00 Pulse Ox 95 10/23/21 15:59 Intake & Output 10/22/21 10/23/21 10/23/21 18:59 06:59 18:59 Intake Total 510 240 Balance 510 240 Intake: Oral 510 240 Other: Voiding Method Urinal # Voids 3 2 - Exam No acute distress, oriented 3. Currently on 2 L nasal cannula. Saturations are 94%. HEENT examination is grossly unremarkable. Mucous membranes are moist. No oral lesions. Neck supple. Full range of motion. No adenopathy thyromegaly or neck vein distention. Cardiovascular examination reveals regular rhythm rate. S1-S2 normal. No S3 or S4. No discernible murmur noted. Heart sounds distant. Heart rate 75 bpm. Lungs reveal coarse bilateral expiratory rhonchi and expiratory wheezes. Breath sounds equal. There is prolongation on forced maneuver. The patient wheezes on forced maneuver. Abdomen soft bowel sounds are heard. No masses or tenderness. Extremities are intact. No cyanosis clubbing or edema. Skin is without rash or lesion. Neurologic examination is brief but nonfocal. - Labs CBC & Chem 7: 10/21/21 06:31 10/21/21 06:31 Assessment and Plan Assessment: Acute exacerbation of COPD, with no clear evidence of pneumonia. COPD, moderate in severity with an FEV1 percent of 62. Prior history of left mid lung pneumonia, community-acquired. History of esophageal cancer, with gastric pull through procedure. GERD. History of prostate cancer, status post radical prostatectomy, and pelvic lymph node dissection. Previous history of heavy tobacco use. History of sleep apnea syndrome. Peripheral neuropathy. Degenerative arthritis. History of Parkinson's disease. Plan: Plan dated 10/23/2021. The patient is currently on albuterol sulfate and ipratropium bromide, as well as Pulmicort, and formoterol. In addition, the patient is on Solu-Medrol 60 mg every 6 hours. Additional recommendations and suggestions are forthcoming. We'll hoping that he turns around in next day or so. He clinically is improved but certainly not back to baseline. The patient is on Rocephin with a 0.03 pro- calcitonin level. The Rocephin will be discontinued. Time with Patient: Less than 30
[2021-10-23] MEDS: ESCITALOPRAM 10 MG TAB PO SCH (21:39)
[2021-10-24] MEDS: methylPREDNISolone SOD SUCCI 125 MG/2 ML VIAL IV SCH ×5 (00:01→23:42)
[2021-10-24] MEDS: HEPARIN SODIUM,PORCINE/PF 5,000 UNIT/0.5 ML SYRINGE SQ SCH ×4 (00:01→23:42)
[2021-10-24] MEDS: SODIUM CHLORIDE 0.9% 1,000 ML IV SCH ×2 (05:26→17:02)
[2021-10-24] MEDS: IPRATROPIUM-ALBUTEROL 3 ML NEB INHALATION SCH ×4 (08:07→20:08)
[2021-10-24] MEDS: BUDESONIDE 1 MG/2 ML NEBU INHALATION SCH ×2 (08:07→20:08)
[2021-10-24] MEDS: FORMOTEROL FUMARATE 20 MCG/2 ML NEBU INHALATION SCH ×2 (08:07→20:08)
[2021-10-24] MEDS: PANTOPRAZOLE 40 MG TABLET PO SCH (08:55)
[2021-10-24] MEDS: LOSARTAN 50 MG TAB PO SCH (08:55)
[2021-10-24] MEDS: cloNIDine HCL 0.1 MG TAB PO SCH ×2 (08:55→21:01)
[2021-10-24] MEDS: MULTIVITAMINS, THERA 1 EACH TAB PO SCH (11:32)
--- NOTE | 2021-10-24 13:58 | P.PN ---
Subjective Progress Note Date: 10/24/21 Principal diagnosis: COPD exacerbation. The patient is seen today 10/22/2021 in follow-up on the regular medical floor. He is currently sitting up in bed. Awake and alert in no acute distress. Breathing a bit easier today compared to yesterday. States not quite back to his baseline. Still has some chest tightness. Still some loose nonproductive cough. Chest x-ray had revealed no acute pulmonary process. No new labs today. He is receiving DuoNeb inhalations, Pulmicort and Perforomist inhalations, IV Solu-Medrol. Empiric antibiotics in the form of ceftriaxone. Progress note dated 10/23/2021. The patient is again seen in room 632. He was seen by our nurse practitioner yesterday. The patient's on 2 L of nasal cannula. He states that he is feeling better, not certainly back to baseline. He does have shortness of breath on exertion. He has chest congestion, coughing, and wheezing. The patient is getting saline at 50 mL an hour. No new laboratory data today. No chest x-ray today. Progress note dated 10/24/2021. The patient is again seen in room 632. He is getting O2 at 2 L by nasal cannula. He is getting saline at 50 mL an hour. The patient is improved. He still very short of breath on exertion. He still does have coughing, wheezing, and chest tightness. He does cough up a small amount of phlegm. Overall though, the patient feels like he is moving in the right direction. I told him it may be another day or 2 before he can be discharged. No new labs to report. Objective - Vital Signs Vital signs: Vital Signs Temp 97.7 F 10/24/21 08:00 Pulse 72 10/24/21 12:24 Resp 18 10/24/21 08:00 BP 155/77 10/24/21 08:00 Pulse Ox 95 10/24/21 11:36 Intake & Output 10/23/21 10/24/21 10/24/21 18:59 06:59 18:59 Intake Total 760 240 Balance 760 240 Intake: Oral 760 240 Other: Voiding Method Urinal Urinal # Voids 1 2 1 - Exam No acute distress, oriented 3. Currently on 2 L nasal cannula. Saturations are 95%. HEENT examination is grossly unremarkable. Mucous membranes are moist. No oral lesions. Neck supple. Full range of motion. No adenopathy thyromegaly or neck vein distention. Cardiovascular examination reveals regular rhythm rate. S1-S2 normal. No S3 or S4. No discernible murmur noted. Heart sounds distant. Heart rate 72 bpm. Lungs reveal coarse bilateral expiratory rhonchi and expiratory wheezes. Breath sounds equal. There is prolongation on forced maneuver. The patient wheezes on forced maneuver. Breath sounds are only marginally improved. Abdomen soft bowel sounds are heard. No masses or tenderness. Extremities are intact. No cyanosis clubbing or edema. Skin is without rash or lesion. Neurologic examination is brief but nonfocal. - Labs CBC & Chem 7: 10/21/21 06:31 10/21/21 06:31 Assessment and Plan Assessment: Acute exacerbation of COPD, with no clear evidence of pneumonia. COPD, moderate in severity with an FEV1 percent of 62. Prior history of left mid lung pneumonia, community-acquired. History of esophageal cancer, with gastric pull through procedure. GERD. History of prostate cancer, status post radical prostatectomy, and pelvic lymph node dissection. Previous history of heavy tobacco use. History of sleep apnea syndrome. Peripheral neuropathy. Degenerative arthritis. History of Parkinson's disease. Plan: Plan dated 10/23/2021. The patient is currently on albuterol sulfate and ipratropium bromide, as well as Pulmicort, and formoterol. In addition, the patient is on Solu-Medrol 60 mg every 6 hours. Additional recommendations and suggestions are forthcoming. We'll hoping that he turns around in next day or so. He clinically is improved but certainly not back to baseline. The patient is on Rocephin with a 0.03 pro- calcitonin level. The Rocephin will be discontinued. Plan dated 10/24/2021. The patient remains on DuoNeb's, Pulmicort, formoterol, and Solu-Medrol. We will continue to follow and make recommendations where appropriate. The patient is certainly moving in the correct direction. The patient may need another day or 2 here in the hospital. He was concerned that we might send him home to soon. I told him we would not send him home until he is ready to go home, so that he can stay home. Time with Patient: Less than 30
[2021-10-24] MEDS: ESCITALOPRAM 10 MG TAB PO SCH (21:02)
[2021-10-25] MEDS: methylPREDNISolone SOD SUCCI 125 MG/2 ML VIAL IV SCH (05:05)
[2021-10-25] MEDS: LOSARTAN 50 MG TAB PO SCH (08:32)
[2021-10-25] MEDS: cloNIDine HCL 0.1 MG TAB PO SCH ×2 (08:32→21:29)
[2021-10-25] MEDS: HEPARIN SODIUM,PORCINE/PF 5,000 UNIT/0.5 ML SYRINGE SQ SCH ×2 (08:32→16:25)
[2021-10-25] MEDS: PANTOPRAZOLE 40 MG TABLET PO SCH (08:32)
[2021-10-25] MEDS: BUDESONIDE 1 MG/2 ML NEBU INHALATION SCH ×2 (08:47→20:23)
[2021-10-25] MEDS: IPRATROPIUM-ALBUTEROL 3 ML NEB INHALATION SCH ×4 (08:47→20:23)
[2021-10-25] MEDS: FORMOTEROL FUMARATE 20 MCG/2 ML NEBU INHALATION SCH ×2 (08:47→20:23)
[2021-10-25] MEDS: MULTIVITAMINS, THERA 1 EACH TAB PO SCH (12:58)
[2021-10-25] MEDS: guaiFENesin-DM 600/30MG 1 EACH TAB.ER.12H PO SCH ×2 (12:58→21:28)
--- NOTE | 2021-10-25 13:13 | P.PN ---
Subjective Progress Note Date: 10/25/21 The patient is seen today 10/25/2021 in follow-up on the regular medical floor. He is currently sitting up in bed. Awake and alert in no acute distress. No worsening shortness of breath, cough or congestion. Still complaining of some chest tightness. Still feeling there is some retained sputum. Not feeling back to his baseline yet. He is continued on DuoNeb inhalations, Pulmicort and Perforomist inhalations, IV Solu-Medrol. We'll add Mucinex. Objective - Vital Signs Vital signs: Vital Signs Temp 98.2 F 10/25/21 08:00 Pulse 80 10/25/21 12:26 Resp 16 10/25/21 08:00 BP 168/85 10/25/21 08:00 Pulse Ox 95 10/25/21 08:00 Intake & Output 10/24/21 10/25/21 10/25/21 18:59 06:59 18:59 Intake Total 1020 416 Balance 1020 416 Intake: Oral 1020 416 Other: Voiding Method Urinal Toilet Urinal # Voids 2 2 - Exam GENERAL EXAM: Alert, very pleasant 66-year-old gentleman, on 2 L nasal cannula with O2 saturations in the mid 90s, comfortable in no apparent distress. HEAD: Normocephalic. EYES: Normal reaction of pupils, equal size. NOSE: Clear with pink turbinates. THROAT: No erythema or exudates. NECK: No masses, no JVD. CHEST: No chest wall deformity. LUNGS: Equal air entry with faint end expiratory wheeze, diminished CVS: S1 and S2 normal with no audible murmur, regular rhythm. ABDOMEN: No hepatosplenomegaly, normal bowel sounds, no guarding or rigidity. SPINE: No scoliosis or deformity SKIN: No rashes CENTRAL NERVOUS SYSTEM: No focal deficits, tone is normal in all 4 extremities. EXTREMITIES: There is no peripheral edema. No clubbing, no cyanosis. Peripheral pulses are intact. - Labs CBC & Chem 7: 10/21/21 06:31 10/21/21 06:31 Assessment and Plan Assessment: 1 Acute COPD exacerbation with secondary shortness of breath. No clear angelina dence of pneumonia. Chest x-ray findings are essentially chronic and consistent with a gastric fold post esophagectomy without any clear airspace disease or infiltration. Clinically improving the patient is less short of breath and a cough and the bronchospasm has subsided compared to yesterday. This x-ray had revealed no acute cardiopulmonary process. No heart failure. 2 COPD, mild an FEV1 of 62% of predicted at baseline and the patient admitted on [facility] on outpatient basis 3 Previous history of left mid lung pneumonia, thought to be community acquired, treated with antibiotics 4 History of esophageal cancer with history of surgical resection and gastric pull-through 5 GERD/reflux 6 History of prostate cancer, the patient underwent a radical prostatectomy with bilateral pelvic lymph node dissection and the patient had bilateral stent placement. 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 We'll continue to follow I, the cosigning physician, performed a history & physical examination of the patient. Lungs sounds with faint end expiratory wheeze. Maintaining good O2 saturations in the 90s on 2 L/m per nasal cannula. I discussed the assessment and plan of care with my nurse practitioner, Amber Hernandez. I attest to the above note as dictated by her.
--- NOTE | 2021-10-25 14:31 | P.PN ---
Subjective Progress Note Date: 10/23/21 This is 66-year-old gentleman admitted with acute COPD exacerbation. Maintaining O2 sats in the 90s on 2 L nasal cannula. Reports coughing. Weaning of steroids in progress. Denies chest pain, palpitations or shortness of breath. Objective - Vital Signs Vital signs: Vital Signs Temp 98.0 F 10/23/21 14:00 Pulse 75 10/23/21 15:59 Resp 18 10/23/21 14:00 BP 123/56 10/23/21 14:00 Pulse Ox 95 10/23/21 15:59 Intake & Output 10/22/21 10/23/21 10/23/21 18:59 06:59 18:59 Intake Total 510 240 Balance 510 240 Intake: Oral 510 240 Other: Voiding Method Urinal # Voids 3 2 - Exam PHYSICAL EXAM: VITAL SIGNS: [As above] GENERAL: Sitting up in bed, no acute distress. HEENT: Conjunctivae normal. eyes normal. Oral mucosa moist NECK: No JVD. No thyroid enlargement. No LNs CARDIOVASCULAR: S1, S2 regular.No murmur RESPIRATION: Breath sounds diminished in the bases. Congested, scattered rhonchi with expiratory wheezing. ABDOMEN: Soft, nontender . No guarding. no masses palpable.Paty-Umbilical hernia. No ascites, No hepatosplenomegaly.Bowel sounds heard. LEGS: No edema. no swelling PSYCHIATRY: Alert and oriented X3, mood and affect normal. NERVOUS SYSTEM: Cranial N 2-12 grossly normal. Moves all 4 limbs. Diffuse weakness No focal deficits. Strength and sensation grossly intact.. Skin: Warm and dry, no rash - Labs CBC & Chem 7: 10/21/21 06:31 10/21/21 06:31 Assessment and Plan Assessment: Acute COPD exacerbation Acute hypoxic respiratory secondary to the above History of esophageal and prostate cancers Hypertension Abdominal, umbilical hernia, follow-up outpatient History of Parkinson's disease Sleep apnea Anxiety, depression Former nicotine dependence Plan: Continue on current medication regime ,monitoring and symptomatic treatmen t. Aggressive pulmonary toileting, continues on nebulized bronchodilators, IV steroids and antibiotics. Weaning of steroids as per pulmonary. Increase ambulation as tolerated. The impression and plan of care has been dictated as directed. : I performed a history and examination of this patient, discussed the same with the dictator. I agree with the dictator's note ,documented as a scribe. Any additional findings or plans will be noted.
--- NOTE | 2021-10-25 14:44 | P.PN ---
Subjective Progress Note Date: 10/24/21 This is 66-year-old gentleman admitted with acute COPD exacerbation. Maintaining O2 sats in the 90s on 2 L nasal cannula. Reports coughing. Weaning of steroids in progress. Denies chest pain, palpitations or shortness of breath. 10/24/2021 maintained on gentle IV fluid hydration at 50 MLS per hour.congested, complains of cough, occasionally productive of yellowish sputum ,shortness of breath and chest tightness. Denies chest pain, palpitations. Objective - Vital Signs Vital signs: Vital Signs Temp 98 F 10/24/21 14:00 Pulse 76 10/24/21 16:52 Resp 18 10/24/21 14:00 BP 136/72 10/24/21 14:00 Pulse Ox 94 L 10/24/21 14:00 Intake & Output 10/23/21 10/24/21 10/24/21 18:59 06:59 18:59 Intake Total 760 480 Balance 760 480 Intake: Oral 760 480 Other: Voiding Method Urinal Urinal # Voids 1 2 1 - Exam PHYSICAL EXAM: VITAL SIGNS: [As above] GENERAL: Sitting up in bed, no acute distress. HEENT: Conjunctivae normal. eyes normal. Oral mucosa moist NECK: No JVD. No thyroid enlargement. No LNs CARDIOVASCULAR: S1, S2 regular.No murmur RESPIRATION: Breath sounds diminished in the bases. Congested, scattered rhonchi with expiratory wheezing. ABDOMEN: Soft, nontender . No guarding. no masses palpable.Paty-Umbilical hernia. No ascites, No hepatosplenomegaly.Bowel sounds heard. LEGS: No edema. no swelling PSYCHIATRY: Alert and oriented X3, mood and affect normal. NERVOUS SYSTEM: Cranial N 2-12 grossly normal. Moves all 4 limbs. Diffuse weakness No focal deficits. Strength and sensation grossly intact.. Skin: Warm and dry, no rash - Labs CBC & Chem 7: 10/21/21 06:31 10/21/21 06:31 Assessment and Plan Assessment: Acute COPD exacerbation Acute hypoxic respiratory secondary to the above History of esophageal and prostate cancers Hypertension Abdominal, umbilical hernia, follow-up outpatient History of Parkinson's disease Sleep apnea Anxiety, depression Former nicotine dependence Plan: Continue on current medication regime ,monitoring and symptomatic treatment. Maintain aggressive pulmonary toileting, continues on nebulized bron chodilators, IV steroids and antibiotics. Follow closely with pulmonary. The impression and plan of care has been dictated as directed. : I performed a history and examination of this patient, discussed the same with the dictator. I agree with the dictator's note ,documented as a scribe. Any additional findings or plans will be noted.
[2021-10-25 14:54] VITALS: BMI 28.5
--- NOTE | 2021-10-25 15:06 | P.PN ---
Subjective Progress Note Date: 10/25/21 This is 66-year-old gentleman admitted with acute COPD exacerbation. Maintaining O2 sats in the 90s on 2 L nasal cannula. Reports coughing. Weaning of steroids in progress. Denies chest pain, palpitations or shortness of breath. 10/24/2021 maintained on gentle IV fluid hydration at 50 MLS per hour.congested, complains of cough, occasionally productive of yellowish sputum ,shortness of breath and chest tightness. Denies chest pain, palpitations. 10/25/2021 maintained on nebulized bronchodilators, Perforomist, Pulmicort, IV steroids. Wheezing improving. Complains of chest congestion, loose n onproductive cough. Maintaining O2 sats in the 90s on 2 L nasal cannula. Afebrile. Objective - Vital Signs Vital signs: Vital Signs Temp 98.2 F 10/25/21 08:00 Pulse 80 10/25/21 12:26 Resp 16 10/25/21 08:00 BP 168/85 10/25/21 08:00 Pulse Ox 95 10/25/21 08:00 Intake & Output 10/24/21 10/25/21 10/25/21 18:59 06:59 18:59 Intake Total 1020 416 Balance 1020 416 Intake: Oral 1020 416 Other: Voiding Method Urinal Toilet Toilet Urinal Urinal # Voids 2 2 - Exam PHYSICAL EXAM: VITAL SIGNS: [As above] GENERAL: Sitting up in bed, no acute distress. HEENT: Conjunctivae normal. eyes normal. Oral mucosa moist. NECK: No JVD. No thyroid enlargement. No LNs CARDIOVASCULAR: S1, S2 regular.No murmur. RESPIRATION: Breath sounds diminished in the bases. Congested, scattered rhonchi with less expiratory wheezing. ABDOMEN: Soft, nontender . No guarding. no masses palpable.Positive bowel sounds heard. LEGS: No edema. no swelling PSYCHIATRY: Alert and oriented X3, mood and affect normal. NERVOUS SYSTEM: Cranial N 2-12 grossly normal. Moves all 4 limbs. Diffuse weakness No focal deficits. Strength and sensation grossly intact. Skin: Warm and dry, no rash. - Labs CBC & Chem 7: 10/21/21 06:31 10/21/21 06:31 Assessment and Plan Assessment: Acute COPD exacerbation Acute hypoxic respiratory secondary to the above History of esophageal and prostate cancers Hypertension Abdominal, umbilical hernia, follow-up outpatient History of Parkinson's disease Sleep apnea Anxiety, depression Former nicotine dependence Plan: Continue on current medication regime ,monitoring and symptomatic treatment. Continue on aggressive pulmonary toileting, continues on nebulized bronchodilators, IV steroids and antibiotics. Discharge planning in progress p ending final DC recommendations and clearance per pulmonary. The impression and plan of care has been dictated as directed. : I performed a history and examination of this patient, discussed the same with the dictator. I agree with the dictator's note ,documented as a scribe. Any additional findings or plans will be noted.
[2021-10-25] MEDS: methylPREDNISolone SOD SUCCI 40 MG/ML 1 ML VIAL IV SCH (16:25)
[2021-10-25] MEDS: INSULIN ASPART (NovoLOG) 100 UNIT/ML VIAL SQ SCH ×2 (18:17→21:27)
[2021-10-25 20:30] LABS: Glucose,Whole Blood 146 mg/dL (75-99)
[2021-10-25] MEDS: ESCITALOPRAM 10 MG TAB PO SCH (21:28)
[2021-10-25] MEDS: SODIUM CHLORIDE 0.9% 1,000 ML IV SCH (21:29)
[2021-10-26] MEDS: HEPARIN SODIUM,PORCINE/PF 5,000 UNIT/0.5 ML SYRINGE SQ SCH ×2 (00:24→08:32)
[2021-10-26] MEDS: methylPREDNISolone SOD SUCCI 40 MG/ML 1 ML VIAL IV SCH ×2 (00:24→08:31)
[2021-10-26 02:57] VITALS: TEMP 97.6
[2021-10-26 07:25] LABS: Glucose,Whole Blood 106 mg/dL (75-99)
[2021-10-26] MEDS: BUDESONIDE 1 MG/2 ML NEBU INHALATION SCH (07:34)
[2021-10-26] MEDS: FORMOTEROL FUMARATE 20 MCG/2 ML NEBU INHALATION SCH (07:34)
[2021-10-26] MEDS: IPRATROPIUM-ALBUTEROL 3 ML NEB INHALATION SCH ×2 (07:34→11:07)
[2021-10-26 07:51] VITALS: BP 177/88; RESP 17
[2021-10-26] MEDS: INSULIN ASPART (NovoLOG) 100 UNIT/ML VIAL SQ SCH ×2 (08:15→13:12)
[2021-10-26] MEDS: guaiFENesin-DM 600/30MG 1 EACH TAB.ER.12H PO SCH (08:31)
[2021-10-26] MEDS: LOSARTAN 50 MG TAB PO SCH (08:31)
[2021-10-26] MEDS: PANTOPRAZOLE 40 MG TABLET PO SCH (08:32)
[2021-10-26] MEDS: cloNIDine HCL 0.1 MG TAB PO SCH (08:32)
--- NOTE | 2021-10-26 09:26 | XR ---
EXAMINATION TYPE: XR chest 2V DATE OF EXAM: 10/26/2021 COMPARISON: Chest x-ray 10/19/2021, CT chest 08/25/2020 HISTORY: COPD and dyspnea TECHNIQUE: Frontal and lateral views of the chest are obtained. FINDINGS: Abnormal density within the right chest is again noted and chronic consistent with patient 's prior surgical procedure of esophagectomy and gastric pull-through. Patchy density has developed a t the left lung base, there may be pleural effusion and associated atelectasis, difficult to exclude basilar pneumonia. Cardiac mediastinal silhouette shows a stable appearance. No evident pneumothorax. Postop change noted to the right shoulder. Rib deformity of the posterior right fifth rib is chronic and likely related to patient's surgical procedure. Aorta is dense and ectatic. There are coronary a rtery calcifications. IMPRESSION: Correlate for pneumonia versus atelectasis, pleural effusion. Coronary artery disease. A ortic ectasia. Postop changes. Follow-up suggested.
[2021-10-26 09:41] LABS: Basophils # (A) 0.04 X 10*3/uL (0.00-0.10); Basophils % (A) 0.2 %; Eosinophils # (A) 0.01 X 10*3/uL (0.04-0.35); Eosinophils % (A) 0.1 %; HGB 12.7 g/dL (13.0-17.0); Lymphocytes # (A) 0.62 X 10*3/uL (0.90-5.00); Lymphocytes % (A) 3.8 %; MCH 27.4 pg (27.0-32.0); MCHC 31.8 g/dL (32.0-37.0); MCV 86.2 fL (80.0-97.0); Mean Platelet Volume 10.1 fL (9.5-12.2); Monocytes # (A) 0.52 X 10*3/uL (0.20-1.00); Monocytes % (A) 3.2 %; Neutrophils # (A) 14.64 X 10*3/uL (1.80-7.70); Platelet Count 249 X 10*3/uL (140-440); RBC 4.64 X 10*6/uL (4.40-5.60); RDW 15.6 % (11.5-14.5); WBC 16.27 X 10*3/uL (4.50-10.00)
[2021-10-26 09:48] LABS: African American GFR (CKD) 113.2 (60.0-200.0); Anion Gap 13.2 mmol/L (10.00-18.00); BUN/Creat Ratio 31.86 Ratio (12.00-20.00); Blood Urea Nitrogen 22.3 mg/dL (9.0-27.0); Calcium 8.5 mg/dL (8.7-10.3); Carbon Dioxide 22.8 mmol/L (20.0-27.5); Non-African American GFR(CKD) 97.7 (60.0-200.0); Potassium 4.2 mmol/L (3.5-5.5)
[2021-10-26 11:22] VITALS: PULSE 77
--- NOTE | 2021-10-26 12:10 | P.PN ---
Subjective Progress Note Date: 10/26/21 The patient is seen today 10/25/2021 in follow-up on the regular medical floor. He is currently sitting up in bed. Awake and alert in no acute distress. No worsening shortness of breath, cough or congestion. Still complaining of some chest tightness. Still feeling there is some retained sputum. Not feeling back to his baseline yet. He is continued on DuoNeb inhalations, Pulmicort and Perforomist inhalations, IV Solu-Medrol. We'll add Mucinex. The patient is seen today 10/26/2021 in follow-up on the regular medical floor. He is currently sitting up in a chair at the bedside. Awake and alert in no acute distress. Maintaining good O2 saturations in the mid 90s on room air now. He is afebrile. Doing quite a bit better. Continues with a loose nonproductive cough. No fever or chills. X-ray continues reveal atelectatic changes. Chronic changes of gastric pull-through. White count 16.2. Hemoglobin 12.7. Platelets 249. Sodium 138. Potassium 4.2. Creatinine 0.7. Glucose 119. Objective - Vital Signs Vital signs: Vital Signs Temp 97.6 F 10/26/21 07:50 Pulse 77 10/26/21 11:21 Resp 17 10/26/21 08:00 BP 177/88 10/26/21 07:50 Pulse Ox 96 10/26/21 07:50 Intake & Output 10/25/21 10/26/21 10/26/21 18:59 06:59 18:59 Intake Total 596 180 Balance 596 180 Weight 90.265 kg Intake: Oral 596 180 Other: Voiding Method Toilet Toilet Toilet Urinal # Voids 2 - Exam GENERAL EXAM: Alert, very pleasant 66-year-old gentleman, on room air with O2 saturations in the mid 90s, comfortable in no apparent distress. HEAD: Normocephalic. EYES: Normal reaction of pupils, equal size. NOSE: Clear with pink turbinates. THROAT: No erythema or exudates. NECK: No masses, no JVD. CHEST: No chest wall deformity. LUNGS: Equal air entry with clear breath sounds, diminished CVS: S1 and S2 normal with no audible murmur, regular rhythm. ABDOMEN: No hepatosplenomegaly, normal bowel sounds, no guarding or rigidity. SPINE: No scoliosis or deformity SKIN: No rashes CENTRAL NERVOUS SYSTEM: No focal deficits, tone is normal in all 4 extremities. EXTREMITIES: There is no peripheral edema. No clubbing, no cyanosis. Peripheral pulses are intact. - Labs CBC & Chem 7: 10/26/21 05:56 10/26/21 05:56 Labs: Abnormal Lab Results - Last 24 Hours (Table) 10/25/21 10/26/21 10/26/21 Range/Units 20:28 05:56 05:56 WBC 16.27 H (4.50-10.00) X 10*3/uL Hgb 12.7 L (13.0-17.0) g/dL MCHC 31.8 L (32.0-37.0) g/dL RDW 15.6 H (11.5-14.5) % Immature Gran # 0.44 H (0.00-0.04) X 10*3/uL Neutrophils # 14.64 H (1.80-7.70) X 10*3/uL Lymphocytes # 0.62 L (0.90-5.00) X 10*3/uL Eosinophils # 0.01 L (0.04-0.35) X 10*3/uL BUN/Creatinine Ratio 31.86 H (12.00-20.00) Ratio Glucose 119 H (70-110) mg/dL POC Glucose (mg/dL) 146 H (75-99) mg/dL Calcium 8.5 L (8.7-10.3) mg/dL 10/26/21 Range/Units 07:24 WBC (4.50-10.00) X 10*3/uL Hgb (13.0-17.0) g/dL MCHC (32.0-37.0) g/dL RDW (11.5-14.5) % Immature Gran # (0.00-0.04) X 10*3/uL Neutrophils # (1.80-7.70) X 10*3/uL Lymphocytes # (0.90-5.00) X 10*3/uL Eosinophils # (0.04-0.35) X 10*3/uL BUN/Creatinine Ratio (12.00-20.00) Ratio Glucose (70-110) mg/dL POC Glucose (mg/dL) 106 H (75-99) mg/dL Calcium (8.7-10.3) mg/dL Assessment and Plan Assessment: 1 Acute COPD exacerbation with secondary shortness of breath. No clear evidence of pneumonia. Chest x-ray findings are essentially chronic and consistent with a gastric fold post esophagectomy without any clear airspace disease or infiltration. Clinically improving the patient is less short of breath and a cough and the bronchospasm has subsided compared to yesterday. Chest x-ray had revealed no acute cardiopulmonary process. No heart failure. 2 COPD, mild an FEV1 of 62% of predicted at baseline and the patient admitted on [facility] on outpatient basis 3 Previous history of left mid lung pneumonia, thought to be community acquired, treated with antibiotics 4 History of esophageal cancer with history of surgical resection and gastric pull-through 5 GERD/reflux 6 History of prostate cancer, the patient underwent a radical prostatectomy with bilateral pelvic lymph node dissection and the patient had bilateral stent placement. 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 Lungs sounds clear, diminished. Maintaining good O2 saturations in the 90s on room air. I discussed the assessment and plan of care with my nurse practitioner, Amber Hernandez. I attest to the above note as dictated by her.
[2021-10-26 12:20] LABS: Glucose,Whole Blood 117 mg/dL (75-99)
[2021-10-26] MEDS: MULTIVITAMINS, THERA 1 EACH TAB PO SCH (13:14)
--- NOTE | 2021-10-27 11:17 | P.DS ---
Providers Date of admission: 10/23/21 08:34 Expected date of discharge: 10/26/21 Attending physician: Alex Robbins Consults: 10/20/21 00:33 Consult Physician Routine Consulting Provider: Janet Mckenzie Consult Reason/Comments: copd Do you want consulting provider notified?: Yes Primary care physician: Alex Robbins [facility] Course: Final Diagnoses: Acute COPD exacerbation Acute hypoxic respiratory secondary to the above, resolved History of esophageal and prostate cancers Hypertension Abdominal, umbilical hernia, follow-up outpatient History of Parkinson's disease Sleep apnea Anxiety, depression Former nicotine dependence Hospital course:This is 66-year-old gentleman admitted with acute COPD exacerbation. Maintaining O2 sats in the 90s on 2 L nasal cannula. Reports coughing. Weaning of steroids in progress. Denies chest pain, palpitations or shortness of breath. 10/24/2021 maintained on gentle IV fluid hydration at 50 MLS per hour.congested, complains of cough, occasionally productive of yellowish sputum ,shortness of breath and chest tightness. Denies chest pain, palpitations. 10/25/2021 maintained on nebulized bronchodilators, Perforomist, Pulmicort, IV steroids. Wheezing improving. Complains of chest congestion, loose nonproductive cough. Maintaining O2 sats in the 90s on 2 L nasal cannula. Afebrile. Significant clinical improvement. Feels better, denies chest pain, palpitations or chest tightness . Maintaining O2 sats in the 90s on room air. Denies lightheadedness or dizziness. Patient will be discharged home today in stable c ondition with guarded prognosis pending chest x-ray, final DC recommendations and clearance per pulmonary. The impression and plan of care has been dictated as directed. : I performed a history and examination of this patient, discussed the same with the dictator. I agree with the dictator's note ,documented as a scribe. Any additional findings or plans will be noted. Patient Condition at Discharge: Stable Plan - Discharge Summary Discharge Rx Participant: No New Discharge Prescriptions: New guaiFENesin-DM 600/30MG [Mucinex Dm] 2 each PO Q12HR tablet predniSONE 10 mg PO DIRECTED #30 tab Albuterol Nebulized [Ventolin Nebulized] 2.5 mg INHALATION Q4H PRN #25 each PRN Reason: Shortness Of Breath Continue Omeprazole 40 mg PO HS cloNIDine HCL [Catapres] 0.1 mg PO BID Losartan Potassium 100 mg PO DAILY Ipratropium-Albuterol Nebulize [Duoneb 0.5 mg-3 mg/3 ml Soln] 3 ml INHALATION QID Omeprazole 20 mg PO AC-BID Escitalopram [Lexapro] 10 mg PO HS Fluticasone/Umeclidin/Vilanter [Trelegy Ellipta 200-62.5-25] 1 puff INHALATION RT-DAILY Multivit-Mins/Iron/Folic/Lycop [Centrum Men's Tablet] 1 tab PO DAILY rOPINIRole HCL [Requip] 1 mg PO HS Discontinued Famotidine [Pepcid] 20 mg PO BID Discharge Medication List Omeprazole 40 mg PO HS 04/26/17 [History] cloNIDine HCL [Catapres] 0.1 mg PO BID 10/02/18 [History] Losartan Potassium 100 mg PO DAILY 03/20/19 [History] Ipratropium-Albuterol Nebulize [Duoneb 0.5 mg-3 mg/3 ml Soln] 3 ml INHALATION QID 06/08/19 [History] Omeprazole 20 mg PO AC-BID 06/08/19 [History] Fluticasone/Umeclidin/Vilanter [Trelegy Ellipta 200-62.5-25] 1 puff INHALATION RT-DAILY 05/25/21 [History] Multivit-Mins/Iron/Folic/Lycop [Centrum Men's Tablet] 1 tab PO DAILY 05/25/21 [History] Escitalopram [Lexapro] 10 mg PO HS 10/19/21 [History] rOPINIRole HCL [Requip] 1 mg PO HS 10/19/21 [History] Albuterol Nebulized [Ventolin Nebulized] 2.5 mg INHALATION Q4H PRN #25 each 10/20/21 [Rx] guaiFENesin-DM 600/30MG [Mucinex Dm] 2 each PO Q12HR tablet 10/26/21 [Rx] predniSONE 10 mg PO DIRECTED #30 tab 10/26/21 [Rx] Follow up Appointment(s)/Referral(s): Alex Robbins DO [Primary Care Provider] - 3 Days Andrés Venegas DO [Doctor of Osteopathic Medicine] - 11/15/21 2:45 pm (Appointment made with Amber ) Patient Instructions/Handouts: COPD (Chronic Obstructive Pulmonary Disease) (DC) Discharge Disposition: HOME SELF-CARE
== END 2021-10-26 13:30 | disposition home or self-care (01) | DRG 190 ==
LOC: EC 19:43 → 4SSUR 10-20 00:33 → 6NMEDSUR 10-20 22:22 → OBSVTOIN 10-23 08:34
PROVIDERS: ADMIT Family Medicine; ATTEND Family Medicine
DX: J44.0 Chronic obstructive pulmonary disease with (acute) lower respiratory infection (principal); J96.01 Acute respiratory failure with hypoxia; J44.1 Chronic obstructive pulmonary disease with (acute) exacerbation; G62.0 Drug-induced polyneuropathy; E11.40 Type 2 diabetes mellitus with diabetic neuropathy, unspecified; G20 Parkinson's disease; Z20.822 Contact with and (suspected) exposure to COVID-19; J20.9 Acute bronchitis, unspecified; T45.1X5A Adverse effect of antineoplastic and immunosuppressive drugs, initial encounter; I10 Essential (primary) hypertension; F41.9 Anxiety disorder, unspecified; F32.A Depression, unspecified; K42.9 Umbilical hernia without obstruction or gangrene; K21.9 Gastro-esophageal reflux disease without esophagitis; M19.90 Unspecified osteoarthritis, unspecified site; H54.7 Unspecified visual loss; Z79.51 Long term (current) use of inhaled steroids; Z79.899 Other long term (current) drug therapy; Z77.090 Contact with and (suspected) exposure to asbestos; Z87.891 Personal history of nicotine dependence; Z85.01 Personal history of malignant neoplasm of esophagus; Z85.46 Personal history of malignant neoplasm of prostate; Z90.49 Acquired absence of other specified parts of digestive tract; Z87.19 Personal history of other diseases of the digestive system; Z96.651 Presence of right artificial knee joint; Z96.611 Presence of right artificial shoulder joint; Z87.39 Personal history of other diseases of the musculoskeletal system and connective tissue; Z87.09 Personal history of other diseases of the respiratory system; Z90.79 Acquired absence of other genital organ(s); Z87.01 Personal history of pneumonia (recurrent); Z98.890 Other specified postprocedural states; Z80.0 Family history of malignant neoplasm of digestive organs; Z83.2 Family history of diseases of the blood and blood-forming organs and certain disorders involving the immune mechanism; Z82.49 Family history of ischemic heart disease and other diseases of the circulatory system
CPT/HCPCS: 36415; 71045; 71046; 80048; 80053; 81003; 83605; 83735; 83880; 84100; 84145; 84484; 85025; 85379; 85610; 85730; 87635; 93005; 94640; 94667; 94760; 96360; 96361; 99285

== ENCOUNTER 2022-02-08 15:33 | Inpatient (IN) | payer MEDICARE ==
--- NOTE | 2022-02-08 16:43 | XR ---
EXAMINATION TYPE: XR chest 2V DATE OF EXAM: 02/08/2022 COMPARISON: X-ray dated 10/26/2021 HISTORY: Difficulty breathing TECHNIQUE: Frontal and lateral views of the chest are obtained. FINDINGS: Density along the right side of the cardiomediastinal silhouette inferiorly probably related to previ ous gastric pull-up surgery. Pulmonary atelectasis or other abnormality at that location cannot be ex cluded. Grossly unremarkable lungs otherwise. No sizable pleural effusion or definite pneumothorax. No gross cardiomegaly yet suboptimally assessed . Right glenohumeral prosthesis, appreciated previously. Chronic fracture of the right eighth rib. IMPRESSION: As above.
[2022-02-08 16:47] LABS: Partial Thromboplastin Time 24.7 sec (22.0-30.0); Prothrombin Time 10.9 sec (9.0-12.0)
[2022-02-08 16:53] LABS: ALT 14 U/L (4-49); AST 21 U/L (17-59); African American GFR (CKD) >90 (>60 ml/min/1.73 sqM); Alkaline Phosphatase 97 U/L (38-126); Anion Gap 8 mmol/L; Blood Urea Nitrogen 17 mg/dL (9-20); Carbon Dioxide 25 mmol/L (22-30); Chloride 103 mmol/L (98-107); Glucose 105 mg/dL (74-99); Non-African American GFR(CKD) >90 (>60 ml/min/1.73 sqM); Potassium 4.3 mmol/L (3.5-5.1); Sodium 136 mmol/L (137-145); Total Bilirubin 0.8 mg/dL (0.2-1.3); Total Protein 6.9 g/dL (6.3-8.2)
[2022-02-08 17:09] LABS: Basophils % (A) 0 %; Eosinophils # (A) 0.2 k/uL (0-0.7); Eosinophils % (A) 2 %; HGB 14.3 gm/dL (13.0-17.5); Lymphocytes % (A) 11 %; MCH 28.2 pg (25.0-35.0); MCHC 32.5 g/dL (31.0-37.0); MCV 86.8 fL (80.0-100.0); Mean Platelet Volume 6.8; Monocytes # (A) 0.6 k/uL (0-1.0); Monocytes % (A) 6 %; Neutrophils # (A) 7.6 k/uL (1.3-7.7); Neutrophils % (A) 79 %; Platelet Count 298 k/uL (150-450); RBC 5.07 m/uL (4.30-5.90); RDW 14.6 % (11.5-15.5); WBC 9.7 k/uL (3.8-10.6)
[2022-02-08] MEDS ORDERED: IPRATROPIUM-ALBUTEROL 3 ML NEB INHALATION STA ×4 (18:51→21:50)
--- NOTE | 2022-02-08 18:53 | ED ---
SOB HPI - General Chief Complaint: Shortness of Breath Stated Complaint: GIULIANO Time Seen by Provider: 02/08/22 18:22 Source: patient, family, RN notes reviewed Mode of arrival: ambulatory Limitations: no limitations - History of Present Illness Initial Comments: 66-year-old male history of esophageal cancer status post resection with pull- through procedure also a recent hernia repair who presents with 3 days of shortness of breath exertional dyspnea cough with green phlegm. He denies any overt fevers chills or sweats no overt chest pain. No problems related to the recent hernia surgery he states. No other current complaints or modifying factors MD Complaint: shortness of breath, cough - Related Data Home Medications Medication Instructions Recorded Confirmed Omeprazole 40 mg PO HS 04/26/17 02/08/22 cloNIDine HCL [Catapres] 0.1 mg PO BID 10/02/18 02/08/22 Losartan Potassium 100 mg PO DAILY 03/20/19 02/08/22 Ipratropium-Albuterol Nebulize 3 ml INHALATION RT-QID 06/08/19 02/08/22 [Duoneb 0.5 mg-3 mg/3 ml Soln] Omeprazole 20 mg PO BID 06/08/19 02/08/22 Fluticasone/Umeclidin/Vilanter 1 puff INHALATION RT-DAILY 05/25/21 02/08/22 [Trelegy Ellipta 200-62.5-25] Escitalopram [Lexapro] 10 mg PO HS 10/19/21 02/08/22 rOPINIRole HCL [Requip] 1.5 mg PO HS 10/19/21 02/08/22 Famotidine 20 mg PO BID 02/08/22 02/08/22 Multivit-Min/FA/Lycopen/Lutein 1 tab PO DAILY 02/08/22 02/08/22 [Centrum Silver Men Tablet] Allergies Allergy/AdvReac Type Severity Reaction Status Date / Time No Known Allergies Allergy Verified 10/19/21 23:07 Review of Systems ROS Statement: Those systems with pertinent positive or pertinent negative responses have been documented in the HPI. ROS Other: All systems not noted in ROS Statement are negative. Past Medical History Past Medical History: Cancer, COPD, GERD/Reflux, Hypertension Additional Past Medical History / Comment(s): Neuropathy, hx esophageal cancer treated with surgery - 2008, past hx of sleep apnea and diabetes but none now after 150 pound weight loss, tremors. prostate cancer History of Any Multi-Drug Resistant Organisms: None Reported Past Surgical History: Appendectomy, Hernia Repair, Joint Replacement, Orthopedic Surgery Additional Past Surgical History / Comment(s): Bilateral elbow, bilateral wrist carpal tunnel, bilateral rotator cuff surgery, right knee arthroscopy, right knee replacement, surgery for esophageal cancer (removed part of esophagus and removed part of stomach making it into carrot shape per patient), hernia repair X3. robotic prostatectomy with bilateral stent placement and pelvic lymph node removal 08/11/20 Past Anesthesia/Blood Transfusion Reactions: Previous Problems w/ Anesthesia Additional Past Anesthesia/Blood Transfusion Reaction / Comment(s): can not lay flat- "stomach acid will come out my nose" Past Psychological History: Anxiety, Depression Smoking Status: Former smoker Past Alcohol Use History: None Reported Past Drug Use History: None Reported - Past Family History Father Family Medical History: Cancer Additional Family Medical History / Comment(s): COLON Cancer. Mother Family Medical History: Cancer, Deep Vein Thrombosis (DVT) Additional Family Medical History / Comment(s): Brain aneurysm. General Exam - General Exam Comments Initial Comments: This is a well-developed well-nourished awake alert oriented times 3 male Limitations: no limitations General appearance: alert, anxious, in distress Head exam: Present: atraumatic, normocephalic, normal inspection Eye exam: Present: normal appearance, PERRL, EOMI. Absent: scleral icterus, conjunctival injection, periorbital swelling ENT exam: Present: normal exam, mucous membranes moist Neck exam: Present: normal inspection, full ROM, other. Absent: tenderness, meningismus, lymphadenopathy Respiratory exam: Present: wheezes, decreased breath sounds (No stridor JVD or bruits). Absent: respiratory distress, rales, rhonchi, stridor Cardiovascular Exam: Present: regular rate, normal rhythm, normal heart sounds. Absent: systolic murmur, diastolic murmur, rubs, gallop, clicks GI/Abdominal exam: Present: soft, normal bowel sounds, other (Well-healing midline surgical scar). Absent: distended, tenderness, guarding, rebound, rigid Extremities exam: Present: full ROM, normal capillary refill, pedal edema (Trace edema). Absent: tenderness, joint swelling, calf tenderness Back exam: Present: normal inspection Neurological exam: Present: alert, oriented X3, CN II-XII intact Psychiatric exam: Present: normal affect, normal mood Skin exam: Present: warm, dry, intact, normal color. Absent: rash Course Vital Signs 02/08/22 02/08/22 02/08/22 15:42 18:44 19:49 Temperature 98.0 F Pulse Rate 76 72 76 Respiratory 18 18 24 Rate Blood Pressure 129/84 120/76 131/80 O2 Sat by Pulse 94 L 94 L 91 L Oximetry 02/08/22 02/08/22 02/08/22 20:03 20:13 21:36 Temperature Pulse Rate 78 80 72 Respiratory 24 Rate Blood Pressure 119/81 O2 Sat by Pulse 92 L Oximetry 02/08/22 02/08/22 22:05 22:19 Temperature Pulse Rate 84 82 Respiratory Rate Blood Pressure O2 Sat by Pulse Oximetry - Reevaluation(s) Reevaluation #1: 02/08/22 21:19 EKG shows sinus rhythm of 74 MD interval 148 QRS duration 146 QT since QTC 420/448 evidence a right bundle-branch block pattern Reevaluation #2: 02/08/22 21:22 Today's EKG compared with one dated 10/19/21 showing similar configuration. Medical Decision Making - Medical Decision Making I did reevaluate the patient multiple occasions when off oxygen his saturation drops into the high 80s. This is at rest. This is after IV steroids and DuoNeb treatments. Patient will be admitted case is discussed with Dr. Rosendo weinstein will be consulted. Patient's presentation consistent with COPD type exacerbation along with bronchitis. - Lab Data Result diagrams: 02/08/22 16:21 02/08/22 16:21 Lab Results 02/08/22 02/08/22 02/08/22 Range/Units 16:20 16:21 16:21 WBC 9.7 (3.8-10.6) k/uL RBC 5.07 (4.30-5.90) m/uL Hgb 14.3 (13.0-17.5) gm/dL Hct 44.0 (39.0-53.0) % MCV 86.8 (80.0-100.0) fL MCH 28.2 (25.0-35.0) pg MCHC 32.5 (31.0-37.0) g/dL RDW 14.6 (11.5-15.5) % Plt Count 298 (150-450) k/uL MPV 6.8 Neutrophils % 79 % Lymphocytes % 11 % Monocytes % 6 % Eosinophils % 2 % Basophils % 0 % Neutrophils # 7.6 (1.3-7.7) k/uL Lymphocytes # 1.0 (1.0-4.8) k/uL Monocytes # 0.6 (0-1.0) k/uL Eosinophils # 0.2 (0-0.7) k/uL Basophils # 0.0 (0-0.2) k/uL PT 10.9 (9.0-12.0) sec INR 1.0 (<1.2) APTT 24.7 (22.0-30.0) sec D-Dimer Cancelled Sodium (137-145) mmol/L Potassium (3.5-5.1) mmol/L Chloride (98-107) mmol/L Carbon Dioxide (22-30) mmol/L Anion Gap mmol/L BUN (9-20) mg/dL Creatinine (0.66-1.25) mg/dL Est GFR (CKD-EPI)AfAm (>60 ml/min/1.73 sqM) Est GFR (CKD-EPI)NonAf (>60 ml/min/1.73 sqM) Glucose (74-99) mg/dL Plasma Lactic Acid Son 1.2 (0.7-2.0) mmol/L Calcium (8.4-10.2) mg/dL Total Bilirubin (0.2-1.3) mg/dL AST (17-59) U/L ALT (4-49) U/L Alkaline Phosphatase (38-126) U/L Troponin I (0.000-0.034) ng/mL NT-Pro-B Natriuret Pep pg/mL Total Protein (6.3-8.2) g/dL Albumin (3.5-5.0) g/dL Coronavirus (PCR) (Not Detectd) 02/08/22 02/08/22 02/08/22 Range/Units 16:21 16:21 16:21 WBC (3.8-10.6) k/uL RBC (4.30-5.90) m/uL Hgb (13.0-17.5) gm/dL Hct (39.0-53.0) % MCV (80.0-100.0) fL MCH (25.0-35.0) pg MCHC (31.0-37.0) g/dL RDW (11.5-15.5) % Plt Count (150-450) k/uL MPV Neutrophils % % Lymphocytes % % Monocytes % % Eosinophils % % Basophils % % Neutrophils # (1.3-7.7) k/uL Lymphocytes # (1.0-4.8) k/uL Monocytes # (0-1.0) k/uL Eosinophils # (0-0.7) k/uL Basophils # (0-0.2) k/uL PT (9.0-12.0) sec INR (<1.2) APTT (22.0-30.0) sec D-Dimer Sodium 136 L (137-145) mmol/L Potassium 4.3 (3.5-5.1) mmol/L Chloride 103 (98-107) mmol/L Carbon Dioxide 25 (22-30) mmol/L Anion Gap 8 mmol/L BUN 17 (9-20) mg/dL Creatinine 0.67 (0.66-1.25) mg/dL Est GFR (CKD-EPI)AfAm >90 (>60 ml/min/1.73 sqM) Est GFR (CKD-EPI)NonAf >90 (>60 ml/min/1.73 sqM) Glucose 105 H (74-99) mg/dL Plasma Lactic Acid Son (0.7-2.0) mmol/L Calcium 9.0 (8.4-10.2) mg/dL Total Bilirubin 0.8 (0.2-1.3) mg/dL AST 21 (17-59) U/L ALT 14 (4-49) U/L Alkaline Phosphatase 97 (38-126) U/L Troponin I <0.012 (0.000-0.034) ng/mL NT-Pro-B Natriuret Pep 112 pg/mL Total Protein 6.9 (6.3-8.2) g/dL Albumin 4.0 (3.5-5.0) g/dL Coronavirus (PCR) (Not Detectd) 02/08/22 02/08/22 Range/Units 18:20 20:00 WBC (3.8-10.6) k/uL RBC (4.30-5.90) m/uL Hgb (13.0-17.5) gm/dL Hct (39.0-53.0) % MCV (80.0-100.0) fL MCH (25.0-35.0) pg MCHC (31.0-37.0) g/dL RDW (11.5-15.5) % Plt Count (150-450) k/uL MPV Neutrophils % % Lymphocytes % % Monocytes % % Eosinophils % % Basophils % % Neutrophils # (1.3-7.7) k/uL Lymphocytes # (1.0-4.8) k/uL Monocytes # (0-1.0) k/uL Eosinophils # (0-0.7) k/uL Basophils # (0-0.2) k/uL PT (9.0-12.0) sec INR (<1.2) APTT (22.0-30.0) sec D-Dimer 0.24 Sodium (137-145) mmol/L Potassium (3.5-5.1) mmol/L Chloride (98-107) mmol/L Carbon Dioxide (22-30) mmol/L Anion Gap mmol/L BUN (9-20) mg/dL Creatinine (0.66-1.25) mg/dL Est GFR (CKD-EPI)AfAm (>60 ml/min/1.73 sqM) Est GFR (CKD-EPI)NonAf (>60 ml/min/1.73 sqM) Glucose (74-99) mg/dL Plasma Lactic Acid Son (0.7-2.0) mmol/L Calcium (8.4-10.2) mg/dL Total Bilirubin (0.2-1.3) mg/dL AST (17-59) U/L ALT (4-49) U/L Alkaline Phosphatase (38-126) U/L Troponin I (0.000-0.034) ng/mL NT-Pro-B Natriuret Pep pg/mL Total Protein (6.3-8.2) g/dL Albumin (3.5-5.0) g/dL Coronavirus (PCR) Not Detected (Not Detectd) - Radiology Data Radiology results: report reviewed (Image reviewed no definitive acute process seen.), image reviewed Critical Care Time Critical Care Time: Yes Total Critical Care Time: 31 Critical Care Time: Critical care time includes initial presentation with history physical labs x- rays multiple reevaluation the patient discussed with patient family regarding findings discussed with the admitting physician admission orders and documentation of the above Disposition Clinical Impression: Acute exacerbation of chronic obstructive pulmonary disease, Bronchitis, Hypoxemia Disposition: ADMITTED IP TO THIS [facility] Condition: Fair Referrals: Alex Robbins DO [Primary Care Provider] - 1-2 days Decision Date: 02/08/22 Decision Time: 22:45
[2022-02-08] MEDS ORDERED: methylPREDNISolone SOD SUCCI 125 MG/2 ML VIAL IV STA ×2 (21:06→21:21)
[2022-02-08] MEDS ORDERED: IPRATROPIUM-ALBUTEROL 3 ML NEB INHALATION PRN (23:02)
[2022-02-08] MEDS ORDERED: LEVOFLOXACIN 750MG-D5W PMX 750 MG in DEXTROSE/WATER 1 150ML.BAG IVPB STA ×2 (23:05→23:45)
[2022-02-09] MEDS: MAGNESIUM SULFATE-D5W PMX 1 GM in DEXTROSE/WATER 1 100ML.BAG IVPB SCH ×4 (00:04→01:07)
[2022-02-09] MEDS: SODIUM CHLORIDE 0.9% 1,000 ML IV SCH ×4 (00:04→07:08)
[2022-02-09] MEDS: methylPREDNISolone SOD SUCCI 125 MG/2 ML VIAL IV SCH ×3 (06:06→17:41)
[2022-02-09] MEDS: LEVOFLOXACIN 500 MG TAB PO SCH (07:06)
[2022-02-09] MEDS: MULTIVITAMINS, THERA 1 EACH TAB PO SCH (07:06)
[2022-02-09] MEDS: cloNIDine HCL 0.1 MG TAB PO SCH ×2 (07:07→19:24)
[2022-02-09] MEDS: PANTOPRAZOLE 40 MG TABLET PO SCH ×2 (07:07→19:24)
[2022-02-09] MEDS: LOSARTAN 50 MG TAB PO SCH (07:07)
[2022-02-09] MEDS: FAMOTIDINE 20 MG TAB PO SCH ×2 (07:07→19:24)
[2022-02-09] MEDS ORDERED: IPRATROPIUM 0.5 MG/2.5 ML NEBU INHALATION SCH (08:00)
[2022-02-09] MEDS ORDERED: SYMBICORT 80-4.5 MCG INHALER INHALATION SCH (08:00)
[2022-02-09] MEDS ORDERED: IPRATROPIUM-ALBUTEROL 3 ML NEB INHALATION PRN (08:19)
[2022-02-09] MEDS: BUDESONIDE 1 MG/2 ML NEBU INHALATION SCH ×2 (08:26→20:48)
[2022-02-09] MEDS: IPRATROPIUM-ALBUTEROL 3 ML NEB INHALATION SCH ×3 (08:26→20:49)
[2022-02-09] MEDS ORDERED: IPRATROPIUM-ALBUTEROL 3 ML NEB INHALATION SCH (12:00)
--- NOTE | 2022-02-09 13:57 | P.CNPUL ---
History of Present Illness Consult date: 02/09/22 Requesting physician: Alex Robbins Reason for consult: dyspnea, COPD Chief complaint: Shortness of breath History of present illness: This is a very pleasant 66-year-old male patient, known history of COPD and the patient has a mild case of COPD with an FEV1 of 2.14 L which is 62% of predicted and is a former smoker and the patient remains on Trelegy regarding his COPD and the patient has been fully vaccinated for COVID 19 including a booster shot. He has a history of prostate cancer, esophageal cancer surgically resected with esophagectomy and gastric pull and the patient also has obstructive sleep apnea that resolved after losing approximately 150 pounds. He is also known to have hypertension and other comorbid conditions including chronic anxiety, depression and previous hospitalizations for pneumonias. The patient came into the emergency department because of shortness of breath and cough and congestion of 3 days duration. His chest x-ray is consistent with his previous esophagectomy as the patient had a gastric pull and there is increased haziness in the right lung which was present also on previous chest x-rays. He is seen today in consultation on the regular medical floor. Currently sitting up in bed. Awake and alert in no acute distress. He is currently on 4 L nasal cannula maintaining O2 saturations in the 90s. Normal saline at 50 MLS per hour. He's been initiated on DuoNeb inhalations, Pulmicort and Perforomist inhalations, IV Solu-Medrol. Empiric antibiotics in the form of Levaquin. White count 9.7. Hemoglobin 14.3. D-dimer 0.24. Sodium 136. Potassium 4.3. BUN 17. Creatinine 0.67. Troponin negative times one. ProBNP 112. Bain virus by PCR not detected. Review of Systems REVIEW OF SYSTEMS: CONSTITUTIONAL: Denies any recent significant weight loss or weight gain. EYES: Denies change in vision. EARS, NOSE, MOUTH, THROAT: Denies headaches, denies sore throat. CARDIOVASCULAR: Denies chest pain, palpitations or syncopal episodes. RESPIRATORY: Positive for shortness of breath, cough, congestion no hemoptysis. GASTROINTESTINAL: Denies change in appetite, denies abdominal pain GENITOURINARY: Denies hematuria, denies infections. MUSKULOSKELETAL: Denies pain, denies swelling. INTEGUMENTARY: Denies rash, denies eczema. NEUROLOGICAL: Denies recent memory loss, no recent seizure activity. PSYCHIATRIC: Denies anxiety, denies depression. HEMATOLOGIC/LYMPHATIC: Denies anemia, denies enlarged lymph nodes. Past Medical History Past Medical History: Cancer, COPD, GERD/Reflux, Hypertension Additional Past Medical History / Comment(s): Neuropathy, hx esophageal cancer treated with surgery - 2009,. prostate cancer current History of Any Multi-Drug Resistant Organisms: None Reported Past Surgical History: Appendectomy, Hernia Repair, Joint Replacement, Orthopedic Surgery Additional Past Surgical History / Comment(s): Bilateral elbow, bilateral wrist carpal tunnel, bilateral rotator cuff surgeryx3 , right knee arthroscopy, right knee replacement, surgery for esophageal cancer (removed part of esophagus and removed part of stomach making it into carrot shape per patient), hernia repair X4. robotic prostatectomy with bilateral stent placement and pelvic lymph node removal 08/11/20 Past Anesthesia/Blood Transfusion Reactions: Previous Problems w/ Anesthesia Additional Past Anesthesia/Blood Transfusion Reaction / Comment(s): can not lay flat- "stomach acid will come out my nose" Past Psychological History: Anxiety, Depression Additional Psychological History / Comment(s): Pt lives at home with his . Pt is normally independent. Smoking Status: Former smoker Past Alcohol Use History: None Reported Additional Past Alcohol Use History / Comment(s): Patient was a smoker one pack per day for 10 years and quit ago 32 years ago. He lives at home with his . He is retired [employer] with exposure to asbestos. There is one cat, a Great Power and a Mountain terrier in the home. Patient enjoys camping, bicycling, gardening and yard work. No recent travel outside of [place]. The patient has been camping in [place]. Past Drug Use History: None Reported - Past Family History Father Family Medical History: Cancer Additional Family Medical History / Comment(s): COLON Cancer. Mother Family Medical History: Cancer, Deep Vein Thrombosis (DVT) Additional Family Medical History / Comment(s): Brain aneurysm. Medications and Allergies Home Medications Medication Instructions Recorded Confirmed Type Omeprazole 40 mg PO HS 04/26/17 02/08/22 History cloNIDine HCL [Catapres] 0.1 mg PO BID 10/02/18 02/08/22 History Losartan Potassium 100 mg PO DAILY 03/20/19 02/08/22 History Ipratropium-Albuterol Nebulize 3 ml INHALATION RT-QID 06/08/19 02/08/22 History [Duoneb 0.5 mg-3 mg/3 ml Soln] Omeprazole 20 mg PO BID 06/08/19 02/08/22 History Fluticasone/Umeclidin/Vilanter 1 puff INHALATION RT-DAILY 05/25/21 02/08/22 History [Trelegy Ellipta 200-62.5-25] Escitalopram [Lexapro] 10 mg PO HS 10/19/21 02/08/22 History rOPINIRole HCL [Requip] 1.5 mg PO HS 10/19/21 02/08/22 History Famotidine 20 mg PO BID 02/08/22 02/08/22 History Multivit-Min/FA/Lycopen/Lutein 1 tab PO DAILY 02/08/22 02/08/22 History [Centrum Silver Men Tablet] Allergies Allergy/AdvReac Type Severity Reaction Status Date / Time No Known Allergies Allergy Verified 10/19/21 23:07 Physical Exam Vitals: Vital Signs Temp Pulse Pulse Resp BP BP Pulse Ox 02/09/22 12:48 92 02/09/22 12:37 92 02/09/22 08:17 95 18 02/09/22 08:07 96 18 96 02/09/22 07:48 98.1 F 83 132/71 95 02/09/22 04:39 76 02/09/22 04:24 72 02/09/22 02:00 97.5 F L 78 24 142/78 95 02/09/22 01:43 89 26 H 92 L 02/09/22 01:09 75 24 134/82 92 L 02/09/22 00:12 80 18 106/70 92 L 02/08/22 22:19 82 02/08/22 22:05 84 02/08/22 21:36 72 24 119/81 92 L 02/08/22 20:13 80 02/08/22 20:03 78 02/08/22 19:49 76 24 131/80 91 L 02/08/22 18:44 72 18 120/76 94 L 02/08/22 15:42 98.0 F 76 18 129/84 94 L Intake and Output 02/08/22 02/09/22 02/09/22 22:59 06:59 14:59 Other: Voiding Method Toilet Urinal # Voids 2 Weight 99.79 kg 99.79 kg GENERAL EXAM: Alert, very pleasant 66-year-old male patient, on 4 L nasal cannula, comfortable in no apparent distress. HEAD: Normocephalic. EYES: Normal reaction of pupils, equal size. NOSE: Clear with pink turbinates. THROAT: No erythema or exudates. NECK: No masses, no JVD. CHEST: No chest wall deformity. LUNGS: Equal air entry with no crackles, wheeze, rhonchi or dullness. CVS: S1 and S2 normal with no audible murmur, regular rhythm. ABDOMEN: No hepatosplenomegaly, normal bowel sounds, no guarding or rigidity. SPINE: No scoliosis or deformity SKIN: No rashes CENTRAL NERVOUS SYSTEM: No focal deficits, tone is normal in all 4 extremities. EXTREMITIES: There is no peripheral edema. No clubbing, no cyanosis. Peripheral pulses are intact. Results - Laboratory Findings CBC and BMP: 02/08/22 16:21 02/08/22 16:21 PT/INR, D-dimer PT 10.9 sec (9.0-12.0) 02/08/22 16:21 INR 1.0 (<1.2) 02/08/22 16:21 D-Dimer 0.24 mg/L FEU (<0.60) 02/08/22 20:00 Abnormal lab findings: Abnormal Labs 02/08/22 16:21 Sodium 136 L Glucose 105 H - Diagnostic Findings Chest x-ray: image reviewed Assessment and Plan Assessment: 1 Acute COPD exacerbation with secondary shortness of breath. No clear evidence of pneumonia. Chest x-ray findings are essentially chronic and consistent with a gastric fold post esophagectomy without any clear airspace disease or infiltration. 2 COPD, mild with an FEV1 of 62% of predicted at baseline and on Trelegy on outpatient basis 3 Previous history of left mid lung pneumonia, thought to be community acquired, treated with antibiotics 4 History of esophageal cancer with history of surgical resection and gastric pull-through 5 GERD/reflux 6 History of prostate cancer, the patient underwent a radical prostatectomy with bilateral pelvic lymph node dissection and the patient had bilateral stent placement. 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 Number of minutes spent on the visit: 10.
--- NOTE | 2022-02-09 14:07 | P.HPIM ---
History of Present Illness H&P Date: 02/09/22 Chief Complaint: Dyspnea, shortness of breath This is a 66-year-old gentleman who history of COPD ,gastroesophageal reflux disease, former nicotine dependence, esophageal cancer with surgical resection and gastric pull-through, peripheral neuropathy,prostate cancer status post prostatectomy with bilateral pelvic lymph node dissection and stent placement, hypertension, Parkinson's disease, sleep apnea and multiple other medical issues presented to the ER With nearly 3 days of difficulty breathing, congestion,, productive cough with green phlegm without fevers or chills. Denies chest pain, palpitations. [place] of symptoms occurred. EKG reported sinus rhythm with right bundle branch block, troponin negative 1. Afebrile, normal WBC. Hematology, coagulation and chemistry panels unremarkable. Coronavirus not detected.Chest x-ray reporting density along the right side of the cardiomediastinal silhouette suspect related to previous gastric pull-up surgery, atelectasis and some haziness. Review of Systems ROS Statement: Those systems with pertinent positive or pertinent negative responses have been documented in the HPI. ROS Other: All systems not noted in ROS Statement are negative. Past Medical History Past Medical History: Cancer, COPD, GERD/Reflux, Hypertension Additional Past Medical History / Comment(s): Neuropathy, hx esophageal cancer treated with surgery - 2009,. prostate cancer current History of Any Multi-Drug Resistant Organisms: None Reported Past Surgical History: Appendectomy, Hernia Repair, Joint Replacement, Orthopedic Surgery Additional Past Surgical History / Comment(s): Bilateral elbow, bilateral wrist carpal tunnel, bilateral rotator cuff surgeryx3 , right knee arthroscopy, right knee replacement, surgery for esophageal cancer (removed part of esophagus and removed part of stomach making it into carrot shape per patient), hernia repair X4. robotic prostatectomy with bilateral stent placement and pelvic lymph node removal 08/11/20 Past Anesthesia/Blood Transfusion Reactions: Previous Problems w/ Anesthesia Additional Past Anesthesia/Blood Transfusion Reaction / Comment(s): can not lay flat- "stomach acid will come out my nose" Past Psychological History: Anxiety, Depression Additional Psychological History / Comment(s): Pt lives at home with his . Pt is normally independent. Smoking Status: Former smoker Past Alcohol Use History: None Reported Additional Past Alcohol Use History / Comment(s): Patient was a smoker one pack per day for 10 years and quit ago 32 years ago. He lives at home with his . He is retired [employer] with exposure to asbestos. There is one cat, a Great Power and a Mountain terrier in the home. Patient enjoys camping, bicycling, gardening and yard work. No recent travel outside of [place]. The patient has been camping in [place]. Past Drug Use History: None Reported - Past Family History Father Family Medical History: Cancer Additional Family Medical History / Comment(s): COLON Cancer. Mother Family Medical History: Cancer, Deep Vein Thrombosis (DVT) Additional Family Medical History / Comment(s): Brain aneurysm. Medications and Allergies Home Medications Medication Instructions Recorded Confirmed Type Omeprazole 40 mg PO HS 04/26/17 02/08/22 History cloNIDine HCL [Catapres] 0.1 mg PO BID 10/02/18 02/08/22 History Losartan Potassium 100 mg PO DAILY 03/20/19 02/08/22 History Ipratropium-Albuterol Nebulize 3 ml INHALATION RT-QID 06/08/19 02/08/22 History [Duoneb 0.5 mg-3 mg/3 ml Soln] Omeprazole 20 mg PO BID 06/08/19 02/08/22 History Fluticasone/Umeclidin/Vilanter 1 puff INHALATION RT-DAILY 05/25/21 02/08/22 History [Trelegy Ellipta 200-62.5-25] Escitalopram [Lexapro] 10 mg PO HS 10/19/21 02/08/22 History rOPINIRole HCL [Requip] 1.5 mg PO HS 10/19/21 02/08/22 History Famotidine 20 mg PO BID 02/08/22 02/08/22 History Multivit-Min/FA/Lycopen/Lutein 1 tab PO DAILY 02/08/22 02/08/22 History [Centrum Silver Men Tablet] Allergies Allergy/AdvReac Type Severity Reaction Status Date / Time No Known Allergies Allergy Verified 10/19/21 23:07 Physical Exam Vitals: Vital Signs Temp Pulse Pulse Resp BP BP Pulse Ox 02/09/22 08:17 95 18 02/09/22 08:07 96 18 96 02/09/22 07:48 98.1 F 83 132/71 95 02/09/22 04:39 76 04/22/22 04:24 72 02/09/22 02:00 97.5 F L 78 24 142/78 95 02/09/22 01:43 89 26 H 92 L 02/09/22 01:09 75 24 134/82 92 L 02/09/22 00:12 80 18 106/70 92 L 02/08/22 22:19 82 02/08/22 22:05 84 02/08/22 21:36 72 24 119/81 92 L 02/08/22 20:13 80 02/08/22 20:03 78 02/08/22 19:49 76 24 131/80 91 L 02/08/22 18:44 72 18 120/76 94 L 02/08/22 15:42 98.0 F 76 18 129/84 94 L Intake and Output 02/08/22 02/09/22 02/09/22 22:59 06:59 14:59 Other: Voiding Method Toilet Urinal # Voids 2 Weight 99.79 kg 99.79 kg - Exam PHYSICAL EXAM: VITAL SIGNS: [As above] GENERAL: Sitting up in bed, short of breath conversing, respiratory effort increased HEENT: Conjunctivae normal. eyes normal. NECK: No JVD. No thyroid enlargement. No LNs CARDIOVASCULAR: S1, S2 regular.No murmur. RESPIRATION: Breath sounds diminished in the bases.Expiratory wheezing. ABDOMEN: Soft, nontender . No guarding. no masses palpable.Positive bowel sounds heard. LEGS: No edema. no swelling PSYCHIATRY: Alert and oriented X3, mood and affect normal. NERVOUS SYSTEM: Cranial N 2-12 grossly normal. Moves all 4 limbs.No focal deficits. Strength and sensation grossly intact. Skin: Warm and dry, no rash. Results CBC & Chem 7: 02/08/22 16:21 02/08/22 16:21 Labs: Abnormal Lab Results - Last 24 Hours (Table) 02/08/22 Range/Units 16:21 Sodium 136 L (137-145) mmol/L Glucose 105 H (74-99) mg/dL Thrombosis Risk Factor Assmnt - Choose All That Apply Other Risk Factors: Yes Each Risk Factor Represents 2 Points: Age 61-74 years Thrombosis Risk Factor Assessment Total Risk Factor Score: 2 Thrombosis Risk Factor Assessment Level: Low Risk Assessment and Plan Assessment: Acute COPD exacerbation Acute hypoxic respiratory secondary to the above Gastroesophageal reflux disease History of esophageal cancer with history of surgical resection and gastric pull-through History of prostate cancer status post prostatectomy with bilateral pelvic lymph node dissection and stent placement. Hypertension History of Parkinson's disease Peripheral neuropathy, suspect chemotherapy-induced Sleep apnea, history Anxiety, depression Former nicotine dependence Plan: Continue on current medication regime ,monitoring and symptomatic treatment. Aggressive pulmonary toileting with nebulized bronchodilators ATC, Pulmicort, steroids, antibiotics. Pulmonary consult in place, recommendations pending. Protonix for GI prophylaxis ordered. The impression and plan of care has been dictated as directed. : I performed a history and examination of this patient, discussed the same with the dictator. I agree with the dictator's note ,documented as a scribe. Any additional findings or plans will be noted.
[2022-02-09] MEDS: ESCITALOPRAM 10 MG TAB PO SCH (19:24)
[2022-02-09] MEDS: FORMOTEROL FUMARATE 20 MCG/2 ML NEBU INHALATION SCH (20:49)
[2022-02-10] MEDS: SODIUM CHLORIDE 0.9% 1,000 ML IV SCH ×4 (00:18→05:40)
[2022-02-10] MEDS: methylPREDNISolone SOD SUCCI 125 MG/2 ML VIAL IV SCH ×4 (00:20→18:43)
[2022-02-10] MEDS: IPRATROPIUM-ALBUTEROL 3 ML NEB INHALATION SCH ×4 (03:23→20:01)
[2022-02-10] MEDS: FORMOTEROL FUMARATE 20 MCG/2 ML NEBU INHALATION SCH ×2 (07:24→20:00)
[2022-02-10] MEDS: BUDESONIDE 1 MG/2 ML NEBU INHALATION SCH ×2 (07:24→20:01)
[2022-02-10] MEDS: MULTIVITAMINS, THERA 1 EACH TAB PO SCH (08:24)
[2022-02-10] MEDS: FAMOTIDINE 20 MG TAB PO SCH ×2 (08:24→22:30)
[2022-02-10] MEDS: LEVOFLOXACIN 500 MG TAB PO SCH (08:24)
[2022-02-10] MEDS: PANTOPRAZOLE 40 MG TABLET PO SCH ×2 (08:24→22:30)
[2022-02-10] MEDS: cloNIDine HCL 0.1 MG TAB PO SCH ×2 (08:24→22:30)
[2022-02-10] MEDS: LOSARTAN 50 MG TAB PO SCH (08:24)
--- NOTE | 2022-02-10 15:22 | P.PN ---
Subjective Progress Note Date: 02/10/22 This is a very pleasant 66-year-old male patient, known history of COPD and the patient has a mild case of COPD with an FEV1 of 2.14 L which is 62% of predicted and is a former smoker and the patient remains on Trelegy regarding his COPD and the patient has been fully vaccinated for COVID 19 including a booster shot. He has a history of prostate cancer, esophageal cancer surgically resected with esophagectomy and gastric pull and the patient also has obstructive sleep apnea that resolved after losing approximately 150 pounds. He is also known to have hypertension and other comorbid conditions including chronic anxiety, depression and previous hospitalizations for pneumonias. The patient came into the emergency department because of shortness of breath and cough and congestion of 3 days duration. His chest x-ray is consistent with his previous esophagectomy as the patient had a gastric pull and there is increased haziness in the right lung which was present also on previous chest x-rays. He is seen today in consultation on the regular medical floor. Currently sitting up in bed. Awake and alert in no acute distress. He is currently on 4 L nasal cannula maintaining O2 saturations in the 90s. Normal saline at 50 MLS per hour. He's been initiated on DuoNeb inhalations, Pulmicort and Perforomist inhalations, IV Solu-Medrol. Empiric antibiotics in the form of Levaquin. White count 9.7. Hemoglobin 14.3. D-dimer 0.24. Sodium 136. Potassium 4.3. BUN 17. Creatinine 0.67. Troponin negative times one. ProBNP 112. Bain virus by PCR not detected. The patient is seen today 02/10/2022 in follow-up on the regular medical floor. He is currently sitting up in bed. Awake and alert in no acute distress. Maintaining good O2 saturations in the 90s on 3 and half liters nasal cannula. No IV fluids. Still some bronchospasm and wheezing. Not quite back to his baseline. Blood cultures reveal no growth to date. Pro-calcitonin 0.04. He is continued on DuoNeb inhalations, Pulmicort and Perforomist inhalations, IV Solu- Medrol. Empiric antibiotics in the form of Levaquin. Objective - Vital Signs Vital signs: Vital Signs Temp 98.1 F 02/10/22 14:00 Pulse 91 02/10/22 14:00 Resp 18 02/10/22 01:39 BP 149/69 02/10/22 14:00 Pulse Ox 96 02/10/22 14:00 Intake & Output 02/09/22 02/10/22 02/10/22 18:59 06:59 18:59 Other: Voiding Method Toilet Toilet Toilet Urinal Urinal Urinal # Voids 4 3 - Exam GENERAL EXAM: Alert, very pleasant 66-year-old male patient, on 3.5 L nasal cannula, comfortable in no apparent distress. HEAD: Normocephalic. EYES: Normal reaction of pupils, equal size. NOSE: Clear with pink turbinates. THROAT: No erythema or exudates. NECK: No masses, no JVD. CHEST: No chest wall deformity. LUNGS: Equal air entry with end expiratory wheeze, few scattered rhonchi CVS: S1 and S2 normal with no audible murmur, regular rhythm. ABDOMEN: No hepatosplenomegaly, normal bowel sounds, no guarding or rigidity. SPINE: No scoliosis or deformity SKIN: No rashes CENTRAL NERVOUS SYSTEM: No focal deficits, tone is normal in all 4 extremities. EXTREMITIES: There is no peripheral edema. No clubbing, no cyanosis. Pe ripheral pulses are intact. - Labs CBC & Chem 7: 02/08/22 16:21 02/08/22 16:21 Labs: Microbiology - Last 24 Hours (Table) 02/09/22 00:00 Blood Culture - Preliminary Blood No Growth after 24 hours 02/08/22 23:45 Blood Culture - Preliminary Blood No Growth after 24 hours Assessment and Plan Assessment: 1 Acute COPD exacerbation with secondary shortness of breath. No clear evidence of pneumonia. Pro-calcitonin 0.04. Chest x-ray findings are essentially chronic and consistent with a gastric fold post esophagectomy without any clear airspace disease or infiltration. 2 COPD, mild with an FEV1 of 62% of predicted at baseline and on Trelegy on outpatient basis 3 Previous history of left mid lung pneumonia, thought to be community acquired, treated with antibiotics 4 History of esophageal cancer with history of surgical resection and gastric pull-through 5 GERD/reflux 6 History of prostate cancer, the patient underwent a radical prostatectomy with bilateral pelvic lymph node dissection and the patient had bilateral stent placement. 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 Number of minutes spent on the visit: 10.
--- NOTE | 2022-02-10 19:19 | PN ---
PROGRESS NOTE DATE OF SERVICE: 02/10/2022 This 66-year-old gentleman who was admitted with COPD, acute exacerbation, is being closely monitored. The patient is on IV steroids. No chest pain. No palpitation. PHYSICAL EXAMINATION: Pulse 91, blood pressure 149/69, respiration 20. HEENT: Conjunctivae normal. NECK: No jugular venous distention. CARDIOVASCULAR: S1, S2 muffled. RESPIRATION: Bilateral scattered rhonchi and crackles. ABDOMEN: Soft. LABS: Reviewed. ASSESSMENT: 1. Chronic obstructive pulmonary disease, acute exacerbation. 2. Acute hypoxic respiratory failure. 3. Gastroesophageal reflux disease. 4. History of esophageal cancer. RECOMMENDATIONS AND DISCUSSION: I recommend to continue current medications, continue with the monitoring, symptomatic treatment. Continue with bronchodilators. Continue steroids. Closely follow with Pulmonary. Prognosis guarded. Further recommendations to follow. MMGERALDINE / FRANCINEN: [id number] /
[2022-02-10] MEDS: ESCITALOPRAM 10 MG TAB PO SCH (22:30)
[2022-02-11] MEDS: methylPREDNISolone SOD SUCCI 125 MG/2 ML VIAL IV SCH ×3 (00:33→11:02)
[2022-02-11] MEDS: LOSARTAN 50 MG TAB PO SCH (08:26)
[2022-02-11] MEDS: MULTIVITAMINS, THERA 1 EACH TAB PO SCH (08:26)
[2022-02-11] MEDS: FAMOTIDINE 20 MG TAB PO SCH ×2 (08:26→21:19)
[2022-02-11] MEDS: cloNIDine HCL 0.1 MG TAB PO SCH ×2 (08:26→21:20)
[2022-02-11] MEDS: PANTOPRAZOLE 40 MG TABLET PO SCH ×2 (08:26→21:20)
[2022-02-11] MEDS: BUDESONIDE 1 MG/2 ML NEBU INHALATION SCH ×2 (08:53→20:35)
[2022-02-11] MEDS: IPRATROPIUM-ALBUTEROL 3 ML NEB INHALATION SCH ×4 (08:53→20:35)
[2022-02-11] MEDS: FORMOTEROL FUMARATE 20 MCG/2 ML NEBU INHALATION SCH ×2 (08:53→20:35)
[2022-02-11] MEDS: methylPREDNISolone SOD SUCCI 40 MG/ML 1 ML VIAL IV SCH ×2 (15:12→23:39)
--- NOTE | 2022-02-11 15:55 | P.PN ---
Subjective Progress Note Date: 02/11/22 This is a very pleasant 66-year-old male patient, known history of COPD and the patient has a mild case of COPD with an FEV1 of 2.14 L which is 62% of predicted and is a former smoker and the patient remains on Trelegy regarding his COPD and the patient has been fully vaccinated for COVID 19 including a booster shot. He has a history of prostate cancer, esophageal cancer surgically resected with esophagectomy and gastric pull and the patient also has obstructive sleep apnea that resolved after losing approximately 150 pounds. He is also known to have hypertension and other comorbid conditions including chronic anxiety, depression and previous hospitalizations for pneumonias. The patient came into the emergency department because of shortness of breath and cough and congestion of 3 days duration. His chest x-ray is consistent with his previous esophagectomy as the patient had a gastric pull and there is increased haziness in the right lung which was present also on previous chest x-rays. He is seen today in consultation on the regular medical floor. Currently sitting up in bed. Awake and alert in no acute distress. He is currently on 4 L nasal cannula maintaining O2 saturations in the 90s. Normal saline at 50 MLS per hour. He's been initiated on DuoNeb inhalations, Pulmicort and Perforomist inhalations, IV Solu-Medrol. Empiric antibiotics in the form of Levaquin. White count 9.7. Hemoglobin 14.3. D-dimer 0.24. Sodium 136. Potassium 4.3. BUN 17. Creatinine 0.67. Troponin negative times one. ProBNP 112. Bain virus by PCR not detected. The patient is seen today 02/10/2022 in follow-up on the regular medical floor. He is currently sitting up in bed. Awake and alert in no acute distress. Maintaining good O2 saturations in the 90s on 3 and half liters nasal cannula. No IV fluids. Still some bronchospasm and wheezing. Not quite back to his baseline. Blood cultures reveal no growth to date. Pro-calcitonin 0.04. He is continued on DuoNeb inhalations, Pulmicort and Perforomist inhalations, IV Solu- Medrol. Empiric antibiotics in the form of Levaquin. Patient seen today 02/11/2022 in follow-up on the regular medical floor. He is currently awake and alert in no acute distress. Sitting up in bed. Denies any worsening shortness of breath, cough or congestion. Nearly back to his baseline. He is on 3 L nasal cannula to maintain O2 saturations in the 90s. No IV fluids. He remains on DuoNeb inhalations, Pulmicort and Perforomist inhalations, IV Solu-Medrol. Objective - Vital Signs Vital signs: Vital Signs Temp 97.4 F L 02/11/22 14:00 Pulse 91 02/11/22 14:00 Resp 18 02/11/22 01:26 BP 156/75 02/11/22 14:00 Pulse Ox 97 02/11/22 14:00 Intake & Output 02/10/22 02/11/22 02/11/22 18:59 06:59 18:59 Other: Voiding Method Toilet Toilet Toilet Urinal Urinal Urinal # Voids 3 - Exam GENERAL EXAM: Alert, very pleasant 66-year-old male patient, on 3 L nasal cannula, comfortable in no apparent distress. HEAD: Normocephalic. EYES: Normal reaction of pupils, equal size. NOSE: Clear with pink turbinates. THROAT: No erythema or exudates. NECK: No masses, no JVD. CHEST: No chest wall deformity. LUNGS: Equal air entry with end expiratory wheeze, few scattered rhonchi CVS: S1 and S2 normal with no audible murmur, regular rhythm. ABDOMEN: No hepatosplenomegaly, normal bowel sounds, no guarding or rigidity. SPINE: No scoliosis or deformity SKIN: No rashes CENTRAL NERVOUS SYSTEM: No focal deficits, tone is normal in all 4 extremities. EXTREMITIES: There is no peripheral edema. No clubbing, no cyanosis. Peripheral pulses are intact. - Labs CBC & Chem 7: 02/08/22 16:21 02/08/22 16:21 Labs: Microbiology - Last 24 Hours (Table) 02/09/22 00:00 Blood Culture - Preliminary Blood No Growth after 48 hours 02/08/22 23:45 Blood Culture - Preliminary Blood No Growth after 48 hours Assessment and Plan Assessment: Acute COPD exacerbation with secondary shortness of breath. No clear evidence of pneumonia. Pro-calcitonin 0.04. Chest x-ray findings are essentially chronic and consistent with a gastric fold post esophagectomy without any clear airspace disease or infiltration. COPD, mild with an FEV1 of 62% of predicted at baseline and on Trelegy on outpatient basis Previous history of left mid lung pneumonia, thought to be community acquired, treated with antibiotics History of esophageal cancer with history of surgical resection and gastric pull-through GERD/reflux History of prostate cancer, the patient underwent a radical prostatectomy with bilateral pelvic lymph node dissection and the patient had bilateral stent placement. 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 We will continue to follow I have personally seen and examined the patient, performed the documentation and the assessment and plan as written. Number of minutes spent on the visit: 10.
--- NOTE | 2022-02-11 19:43 | PN ---
PROGRESS NOTE DATE OF SERVICE: 02/11/2022 This 66-year-old gentleman who was admitted with COPD, acute exacerbation, also had acute hypoxic respiratory failure. No chest pain. No palpitations. No fever. PHYSICAL EXAMINATION: Alert and oriented x3. Pulse 91, blood pressure 150/73, respiration 20. HEENT: Conjunctivae normal. CARDIOVASCULAR: S1, S2 muffled. RESPIRATION: Breath sounds diminished at the bases. Bilateral scattered rhonchi and expiratory wheezing and crackles. ABDOMEN: Soft. NERVOUS SYSTEM: No focal deficit. LABS: Reviewed. COVID-19 is negative. ASSESSMENT: 1. Chronic obstructive pulmonary disease, acute exacerbation. 2. Acute hypoxic respiratory failure. 3. Gastroesophageal reflux disease. 4. History of esophageal cancer. RECOMMENDATIONS AND DISCUSSION: I recommend to continue current medications, continue with the monitoring, symptomatic treatment. Continue the bronchodilators, IV steroids. Continue with antibiotics. Dr. Robbins will follow in the morning. Follow closely with Pulmonary. MMODL / IJN: [id number] /
[2022-02-11] MEDS ORDERED: MELATONIN 5 MG TABLET PO SCH (21:00)
[2022-02-11 21:18] VITALS: TEMP 98
[2022-02-11] MEDS: ESCITALOPRAM 10 MG TAB PO SCH (21:20)
[2022-02-12 01:59] VITALS: BP 145/73; RESP 18
--- NOTE | 2022-02-12 11:53 | P.DS ---
Providers Date of admission: 02/08/22 23:02 Expected date of discharge: 02/12/22 Attending physician: Alex Robbins Consults: 02/09/22 07:47 Consult Physician Routine Consulting Provider: Andrés Venegas Reason/Comments: COPD exacerbation Do you want consulting provider notified?: Yes Primary care physician: Alex Robbins Hospital Course: Final Diagnoses: Acute COPD exacerbation Acute hypoxic respiratory secondary to the above Gastroesophageal reflux disease History of esophageal cancer with history of surgical resection and gastric pull-through History of prostate cancer status post prostatectomy with bilateral pelvic lymph node dissection and stent placement. Hypertension History of Parkinson's disease Peripheral neuropathy, suspect chemotherapy-induced Sleep apnea, history Anxiety, depression Former nicotine dependence Hospital Course:This is a 66-year-old gentleman who history of COPD ,gastroesophageal reflux disease, former nicotine dependence, esophageal cancer with surgical resection and gastric pull-through, peripheral neuropathy,prostate cancer status post prostatectomy with bilateral pelvic lymph node dissection and stent placement, hypertension, Parkinson's disease, sleep apnea and multiple other medical issues presented to the ER with nearly 3 days of difficulty breathing, congestion,, productive cough with green phlegm without fevers or chills. Denies chest pain, palpitations. [place] the [place] of symptoms occurred. EKG reported sinus rhythm with right bundle branch block, troponin negative 1. Afebrile, normal WBC. Hematology, coagulation and chemistry panels unremarkable. Coronavirus not detected.Chest x-ray reporting density along the right side of the cardiomediastinal silhouette suspect related to previous gastric pull-up surgery, atelectasis and some haziness. Evaluated by pulmonary, maintained on nebulized dilators, IV steroids, significant clinical improvement. O2 weaning in progress/home O2 study pending. Patient will be discharged home in a stable condition with fair prognosis today pending, TC recommendations and clearance per pulmonary. The impression and plan of care has been dictated as directed. : I performed a history and examination of this patient, discussed the same with the dictator. I agree with the dictator's note ,documented as a scribe. Any additional findings or plans will be noted. Patient Condition at Discharge: Stable Plan - Discharge Summary Discharge Rx Participant: Yes New Discharge Prescriptions: New predniSONE 10 mg PO DIRECTED #30 tab Continue Omeprazole 40 mg PO HS cloNIDine HCL [Catapres] 0.1 mg PO BID Losartan Potassium 100 mg PO DAILY Omeprazole 20 mg PO BID Escitalopram [Lexapro] 10 mg PO HS Famotidine 20 mg PO BID Ipratropium-Albuterol Nebulize [Duoneb 0.5 mg-3 mg/3 ml Soln] 3 ml INHALATION RT-QID #0 Fluticasone/Umeclidin/Vilanter [Trelegy Ellipta 200-62.5-25] 1 puff INHALATION RT-DAILY rOPINIRole HCL [Requip] 1.5 mg PO HS Multivit-Min/FA/Lycopen/Lutein [Centrum Silver Men Tablet] 1 tab PO DAILY Discharge Medication List Omeprazole 40 mg PO HS 04/26/17 [History] cloNIDine HCL [Catapres] 0.1 mg PO BID 10/02/18 [History] Losartan Potassium 100 mg PO DAILY 03/20/19 [History] Omeprazole 20 mg PO BID 06/08/19 [History] Fluticasone/Umeclidin/Vilanter [Trelegy Ellipta 200-62.5-25] 1 puff INHALATION RT-DAILY 05/25/21 [History] Escitalopram [Lexapro] 10 mg PO HS 10/19/21 [History] rOPINIRole HCL [Requip] 1.5 mg PO HS 10/19/21 [History] Famotidine 20 mg PO BID 02/08/22 [History] Multivit-Min/FA/Lycopen/Lutein [Centrum Silver Men Tablet] 1 tab PO DAILY 02/08/22 [History] Ipratropium-Albuterol Nebulize [Duoneb 0.5 mg-3 mg/3 ml Soln] 3 ml INHALATION RT-QID #0 02/12/22 [Rx] predniSONE 10 mg PO DIRECTED #30 tab 02/12/22 [Rx] Follow up Appointment(s)/Referral(s): Alex Robbins DO [Primary Care Provider] - 3 Days Activity/Diet/Wound Care/Special Instructions: Home O2:
[2022-02-12] MEDS: IPRATROPIUM-ALBUTEROL 3 ML NEB INHALATION SCH ×3 (13:05→15:14)
[2022-02-12] MEDS: BUDESONIDE 1 MG/2 ML NEBU INHALATION SCH (13:10)
[2022-02-12] MEDS: FORMOTEROL FUMARATE 20 MCG/2 ML NEBU INHALATION SCH (13:10)
[2022-02-12 13:19] VITALS: PULSE 78
--- NOTE | 2022-02-12 13:44 | P.PN ---
Subjective Progress Note Date: 02/12/22 Principal diagnosis: Shortness of breath This is a very pleasant 66-year-old male patient, known history of COPD and the patient has a mild case of COPD with an FEV1 of 2.14 L which is 62% of predicted and is a former smoker and the patient remains on Trelegy regarding his COPD and the patient has been fully vaccinated for COVID 19 including a booster shot. He has a history of prostate cancer, esophageal cancer surgically resected with esophagectomy and gastric pull and the patient also has obstructive sleep apnea that resolved after losing approximately 150 pounds. He is also known to have hypertension and other comorbid conditions including chronic anxiety, depression and previous hospitalizations for pneumonias. The patient came into the emergency department because of shortness of breath and cough and congestion of 3 days duration. His chest x-ray is consistent with his previous esophagectomy as the patient had a gastric pull and there is increased haziness in the right lung which was present also on previous chest x-rays. He is seen today in consultation on the regular medical floor. Currently sitting up in bed. Awake and alert in no acute distress. He is currently on 4 L nasal cannula maintaining O2 saturations in the 90s. Normal saline at 50 MLS per hour. He's been initiated on DuoNeb inhalations, Pulmicort and Perforomist inhalations, IV Solu-Medrol. Empiric antibiotics in the form of Levaquin. White count 9.7. Hemoglobin 14.3. D-dimer 0.24. Sodium 136. Potassium 4.3. BUN 17. Creatinine 0.67. Troponin negative times one. ProBNP 112. Bain virus by PCR not detected. The patient is seen today 02/10/2022 in follow-up on the regular medical floor. He is currently sitting up in bed. Awake and alert in no acute distress. Maintaining good O2 saturations in the 90s on 3 and half liters nasal cannula. No IV fluids. Still some bronchospasm and wheezing. Not quite back to his baseline. Blood cultures reveal no growth to date. Pro-calcitonin 0.04. He is continued on DuoNeb inhalations, Pulmicort and Perforomist inhalations, IV Solu- Medrol. Empiric antibiotics in the form of Levaquin. Patient seen today 02/11/2022 in follow-up on the regular medical floor. He is currently awake and alert in no acute distress. Sitting up in bed. Denies any worsening shortness of breath, cough or congestion. Nearly back to his baseline. He is on 3 L nasal cannula to maintain O2 saturations in the 90s. No IV fluids. He remains on DuoNeb inhalations, Pulmicort and Perforomist inhalations, IV Solu-Medrol. On 02/12/2022 patient seen in follow-up on medical surgical floor. He is awake and alert, in no acute distress, is currently on 2 L of oxygen, he states he is feeling better, and sounds better compared to previous physical exams, no acute events overnight, home oxygen assessment revealed 89% room air pulse oximetry at rest, and 87% on room air with exercise and patient does qualify for home oxygen, he says 93% on 3 L, his had no fever or chills no acute events overnight. Patient remains on nebulized bronchodilators, DuoNeb, Pulmicort, Perforomist, IV steroids with Solu-Medrol 40 mg every 8 hours. No new labs today, COVID-19 is negative, pro-calcitonin level is negative at 0.04. Objective - Vital Signs Vital signs: Vital Signs Temp 98.0 F 02/12/22 01:22 Pulse 78 02/12/22 13:19 Resp 18 02/12/22 01:22 BP 145/73 02/12/22 01:22 Pulse Ox 89 L 02/12/22 12:18 Intake & Output 02/11/22 02/12/22 02/12/22 18:59 06:59 18:59 Intake Total 1060 Balance 1060 Intake: Oral 1060 Other: Voiding Method Toilet Urinal # Voids 3 # Bowel Movements 1 - Exam GENERAL EXAM: Alert, very pleasant, 66-year-old white male, on 3 L of oxygen the pulse ox 93% comfortable in no apparent distress. HEAD: Normocephalic/atraumatic. EYES: Normal reaction of pupils, equal size. Conjunctiva pink, sclera white. NOSE: Clear with pink turbinates. THROAT: No erythema or exudates. NECK: No masses, no JVD, no thyroid enlargement, no adenopathy. CHEST: No chest wall deformity. Symmetrical expansion. LUNGS: Equal air entry with diminished breath sounds at the bases CVS: Regular rate and rhythm, normal S1 and S2, no gallops, no murmurs, no rubs ABDOMEN: Soft, nontender. No hepatosplenomegaly, normal bowel sounds, no guarding or rigidity. EXTREMITIES: No clubbing, no edema, no cyanosis, 2+ pulses and upper and lower extremities. MUSCULOSKELETAL: Muscle strength and tone normal. SPINE: No scoliosis or deformity SKIN: No rashes CENTRAL NERVOUS SYSTEM: Alert and oriented -3. No focal deficits, tone is normal in all 4 extremities. PSYCHIATRIC: Alert and oriented -3. Appropriate affect. Intact judgment and insight. - Labs CBC & Chem 7: 02/08/22 16:21 02/08/22 16:21 Labs: Microbiology - Last 24 Hours (Table) 02/09/22 00:00 Blood Culture - Preliminary Blood No Growth after 72 hours 02/08/22 23:45 Blood Culture - Preliminary Blood No Growth after 72 hours Assessment and Plan Plan: Acute COPD exacerbation with secondary shortness of breath. No clear evidence of pneumonia. Pro-calcitonin 0.04. Chest x-ray findings are essentially chronic and consistent with a gastric fold post esophagectomy without any clear airspace disease or infiltration. COPD, mild with an FEV1 of 62% of predicted at baseline and on Trelegy on outpatient basis Previous history of left mid lung pneumonia, thought to be community acquired, treated with antibiotics History of esophageal cancer with history of surgical resection and gastric pull-through GERD/reflux History of prostate cancer, the patient underwent a radical prostatectomy with bilateral pelvic lymph node dissection and the patient had bilateral stent plac ement. 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 Venegas in 7-10 weeks I have seen and examined the patient, performed the documentation and the assessment and plan as written. Number of minutes spent on the visit: [10] I have personally seen and examined the patient and reviewed the documentation. I performed a joint evaluation with the nurse practitioner in this evaluation was done more than 20 minutes. I fully agree with the documentation above and the plan of care. The patient is feeling better. Less short of breath. He was Hospital as for an acute COPD exacerbation and he feels that he is getting closer to his baseline. We will evaluate for home O2. Possible discharge within the next 24-48 hours. Clinically much improved. Time with Patient: Less than 30
[2022-02-12] MEDS: FAMOTIDINE 20 MG TAB PO SCH (13:47)
[2022-02-12] MEDS: cloNIDine HCL 0.1 MG TAB PO SCH (13:47)
[2022-02-12] MEDS: LOSARTAN 50 MG TAB PO SCH (13:47)
[2022-02-12] MEDS: MULTIVITAMINS, THERA 1 EACH TAB PO SCH (13:47)
[2022-02-12] MEDS: PANTOPRAZOLE 40 MG TABLET PO SCH (13:47)
[2022-02-12] MEDS: methylPREDNISolone SOD SUCCI 40 MG/ML 1 ML VIAL IV SCH (13:47)
== END 2022-02-12 15:16 | disposition home or self-care (01) | DRG 190 ==
LOC: EC 15:33 → 4SSUR 23:02
PROVIDERS: ADMIT Family Medicine; ATTEND Family Medicine
DX: J44.1 Chronic obstructive pulmonary disease with (acute) exacerbation (principal); J96.01 Acute respiratory failure with hypoxia; J98.11 Atelectasis; G62.0 Drug-induced polyneuropathy; G20 Parkinson's disease; E11.42 Type 2 diabetes mellitus with diabetic polyneuropathy; Z20.822 Contact with and (suspected) exposure to COVID-19; T45.1X5A Adverse effect of antineoplastic and immunosuppressive drugs, initial encounter; I10 Essential (primary) hypertension; K21.9 Gastro-esophageal reflux disease without esophagitis; F32.A Depression, unspecified; I45.10 Unspecified right bundle-branch block; M19.90 Unspecified osteoarthritis, unspecified site; F41.9 Anxiety disorder, unspecified; Z77.090 Contact with and (suspected) exposure to asbestos; Z79.51 Long term (current) use of inhaled steroids; Z79.899 Other long term (current) drug therapy; Z87.891 Personal history of nicotine dependence; Z85.01 Personal history of malignant neoplasm of esophagus; Z90.79 Acquired absence of other genital organ(s); Z85.46 Personal history of malignant neoplasm of prostate; Z87.09 Personal history of other diseases of the respiratory system; Z90.49 Acquired absence of other specified parts of digestive tract; Z96.611 Presence of right artificial shoulder joint; Z96.651 Presence of right artificial knee joint; Z87.01 Personal history of pneumonia (recurrent); Z98.890 Other specified postprocedural states; Z80.0 Family history of malignant neoplasm of digestive organs; Z83.2 Family history of diseases of the blood and blood-forming organs and certain disorders involving the immune mechanism; Z82.3 Family history of stroke
CPT/HCPCS: 36415; 71046; 80053; 83605; 83880; 84145; 84484; 85025; 85379; 85610; 85730; 87040; 87635; 93005; 94640; 94760; 96365; 96366; 96368; 96375; 99291

== ENCOUNTER → 2022-05-08 | Outpatient (CLI) | payer MEDICARE ==
--- NOTE | 2022-05-08 13:52 | US ---
EXAMINATION TYPE: US scrotum with doppler. Grayscale and color Doppler Duplex imaging performed of t he scrotum. DATE OF EXAM: 05/08/2022 COMPARISON: NONE CLINICAL HISTORY: C61 PROSTATE CA. Scrotal pain x3 weeks, Hx of prostate CA EXAM MEASUREMENTS: TESTICLES: Right Testicle: 3.8 x 2.1 x 3.1 cm, anechoic area seen in upper pole measuring 0.3 x 0.1 x 0.3 cm, u nknow hyperechoic Left Testicle: 3.9 x 1.7 x 2.8 cm EPIDIDYMIS HEAD: Right Epididymis: 0.92 cm, hypoechoic area seen in epi head measuring 0.6 x 0.5 x 0.5cm, questionabl e hyperechoic area seen adjacent to testicle measuring 0.5 x 0.5 x 0.4cm ? appendix testis Left Epididymis: 0.81cm, cystic area seen measuring 0.3cm Doppler performed to assess for testicular vascularity; good bilateral color flow and waveforms are s een. There is no evidence of testicular torsion. Presence of hydroceles: Bilateral fluid pockets seen Presence of varicoceles: No IMPRESSION: 1. Bilateral hydroceles 2. Bilateral suspected epididymal head cysts. 3. Nonspecific tiny 3 mm hypoechoic area right testicle. Recommend short-term follow-up. Finding too small to characterize.
== END | disposition home or self-care (01) ==
LOC: RADUSWWP 12:39
PROVIDERS: ATTEND Urology
DX: C61 Malignant neoplasm of prostate (principal); N43.3 Hydrocele, unspecified
CPT/HCPCS: 76870; 93975

== ENCOUNTER → 2022-06-01 | Outpatient (CLI) | payer MEDICARE ==
[2022-06-01 17:40] LABS: African American GFR (CKD) >90 (>60 ml/min/1.73 sqM); Blood Urea Nitrogen 22 mg/dL (9-20); Non-African American GFR(CKD) >90 (>60 ml/min/1.73 sqM)
--- NOTE | 2022-06-01 20:36 | CT ---
EXAMINATION TYPE: CT chest w con CT DLP: 582.60 mGycm, Automated exposure control for dose reduction was used. DATE OF EXAM: 06/01/2022 6:12 PM COMPARISON: CT chest 08/25/2020. CLINICAL INDICATION:Male, 66 years old with history of R06.09 dyspnea;, SOB with exertion x1 year. hx of esophageal and prostate ca TECHNIQUE: Multiple axial images were obtained through the chest. Sagittal and coronal reformats were created for review. Contrast used:100 mL of Isovue 300 with IV Contrast, none. Oral contrast used: none. FINDINGS: LUNGS/ PLEURA: There is right upper lobe tree-in-bud opacities along within the left lower lobe. No e vidence of pneumothorax or pleural effusion. AIRWAY: Patent and unremarkable. HEART: Heart is mildly enlarged for size there is moderate to severe coronary artery atherosclerosis. MEDIASTINUM: Prominent but nonenlarged lymph nodes are seen throughout the mediastinum. Postsurgical changes with gastric pull-through are noted. Changes are grossly unchanged VASCULATURE: No aortic aneurysm. The pulmonary trunk is dilated up to 3.7 cm. Limited evaluation raza s not demonstrate a central filling defect to suggest pulmonary embolus. MUSCULOSKELETAL: Mild disc degeneration changes are present throughout the thoracolumbar spine. Shoul greer arthroplasty changes on the right. Hardware appears intact and in appropriate position. SOFT TISSUES/LYMPH NODES: Unremarkable. LOWER NECK: Right thyroid nodule measuring 11 mm as seen on prior dating back to 2019. UPPER ABDOMEN: Right adrenal nodule may be fractionally larger than seen dating back to dating back 2011 and likely represent benign adrenal adenoma. IMPRESSION: 1. Scattered airspace opacities concerning for infectious/inflammatory process most pronounced in th e right upper and left lower lobes. 2. Pulmonary hypertension suggested. 3. Postsurgical changes of gastric pull-through no evidence to suggest recurrence. 4. Moderate to severe coronary artery atherosclerosis.
== END | disposition home or self-care (01) ==
LOC: RADCTMAIN 17:03
PROVIDERS: ATTEND Internal Medicine Critical Care Medicine
DX: R91.8 Other nonspecific abnormal finding of lung field (principal); I25.10 Atherosclerotic heart disease of native coronary artery without angina pectoris
CPT/HCPCS: 82565; 84520; 71260; 36415; Q9967

== ENCOUNTER 2022-07-04 19:36 | Emergency (ER) | payer MEDICARE ==
[2022-07-04 19:59] VITALS: TEMP 97.8
[2022-07-04] MEDS ORDERED: MORPHINE SULFATE 4 MG/ML SYRINGE IV STA (20:15)
--- NOTE | 2022-07-04 20:19 | ED ---
Head Injury HPI - General Chief complaint: Head Injury Stated complaint: Fell, lost consciousness Time Seen by Provider: 07/04/22 20:02 Source: patient Mode of arrival: wheelchair Limitations: no limitations - History of Present Illness MD Complaint: head injury, fall Onset/Timin -: hour(s) Mechanism of Injury: mechanical fall Location: frontal Loss of Consciousness: yes Previous Trauma to this Area: No Place: home Radiation: neck Severity: moderate Consistency: constant Provoking factors: none known Other Injuries: none Associated Symptoms: confusion - Related Data Home Medications Medication Instructions Recorded Confirmed Omeprazole 40 mg PO HS 04/26/17 07/04/22 cloNIDine HCL [Catapres] 0.1 mg PO BID 10/02/18 07/04/22 Losartan Potassium 100 mg PO DAILY 03/20/19 07/04/22 Omeprazole 20 mg PO BID 06/08/19 07/04/22 Fluticasone/Umeclidin/Vilanter 1 puff INHALATION RT-DAILY 05/25/21 07/04/22 [Trelegy Ellipta 200-62.5-25] Famotidine 20 mg PO BID 02/08/22 07/04/22 Multivit-Min/FA/Lycopen/Lutein 1 tab PO DAILY 02/08/22 07/04/22 [Centrum Silver Men Tablet] Baclofen [Lioresal] 20 mg PO DAILY 07/04/22 07/04/22 DULoxetine HCL [Cymbalta] 60 mg PO DAILY 07/04/22 07/04/22 rOPINIRole HCL [Requip] 2 mg PO HS 07/04/22 07/04/22 Previous Rx's Medication Instructions Recorded Ipratropium-Albuterol Nebulize 3 ml INHALATION RT-QID #0 02/12/22 [Duoneb 0.5 mg-3 mg/3 ml Soln] Allergies/Adverse reactions: Allergies Allergy/AdvReac Type Severity Reaction Status Date / Time No Known Allergies Allergy Verified 07/04/22 21:43 Review of Systems ROS Statement: Those systems with pertinent positive or pertinent negative responses have been documented in the HPI. ROS Other: All systems not noted in ROS Statement are negative. Constitutional: Denies: fever Respiratory: Denies: cough, dyspnea Cardiovascular: Denies: chest pain, palpitations, edema Gastrointestinal: Denies: abdominal pain, vomiting Genitourinary: Denies: dysuria, hematuria Musculoskeletal: Denies: back pain Skin: Denies: rash Neurological: Reports: as per HPI, headache, confusion. Denies: weakness Past Medical History Past Medical History: Cancer, COPD, GERD/Reflux, Hypertension Additional Past Medical History / Comment(s): Neuropathy, hx esophageal cancer treated with surgery - 2009,. prostate cancer current History of Any Multi-Drug Resistant Organisms: None Reported Past Surgical History: Appendectomy, Hernia Repair, Joint Replacement, Orthopedic Surgery Additional Past Surgical History / Comment(s): Bilateral elbow, bilateral wrist carpal tunnel, bilateral rotator cuff surgeryx3 , right knee arthroscopy, right knee replacement, surgery for esophageal cancer (removed part of esophagus and removed part of stomach making it into carrot shape per patient), hernia repair X4. robotic prostatectomy with bilateral stent placement and pelvic lymph node removal 08/11/20 Past Anesthesia/Blood Transfusion Reactions: Previous Problems w/ Anesthesia Additional Past Anesthesia/Blood Transfusion Reaction / Comment(s): can not lay flat- "stomach acid will come out my nose" Past Psychological History: Anxiety, Depression Smoking Status: Former smoker Past Alcohol Use History: None Reported Past Drug Use History: None Reported - Past Family History Father Family Medical History: Cancer Additional Family Medical History / Comment(s): COLON Cancer. Mother Family Medical History: Cancer, Deep Vein Thrombosis (DVT) Additional Family Medical History / Comment(s): Brain aneurysm. General Exam Limitations: no limitations General appearance: alert, in no apparent distress Head exam: Present: normocephalic, other (There is frontal contusion with hematoma approximately 3-4 cm in diameter. No obvious deformity. Moderate tend erness.) Eye exam: Present: normal appearance, PERRL, EOMI, conjunctival injection. Absent: scleral icterus, nystagmus ENT exam: Present: normal oropharynx Neck exam: Present: normal inspection, tenderness. Absent: meningismus Respiratory exam: Present: normal lung sounds bilaterally. Absent: respiratory distress, wheezes, rales, rhonchi, stridor Cardiovascular Exam: Present: regular rate, normal rhythm, normal heart sounds. Absent: systolic murmur, diastolic murmur, rubs, gallop GI/Abdominal exam: Present: soft. Absent: distended, tenderness, guarding, rebound, rigid, mass Extremities exam: Present: normal inspection, normal capillary refill. Absent: pedal edema, calf tenderness Back exam: Present: normal inspection. Absent: CVA tenderness (R), CVA tenderness (L), vertebral tenderness Neurological exam: Present: alert, CN II-XII intact Skin exam: Present: warm, dry, intact, normal color. Absent: rash Course Vital Signs 07/04/22 07/04/22 19:56 23:22 Temperature 97.8 F Pulse Rate 73 74 Respiratory 16 18 Rate Blood Pressure 138/90 148/84 O2 Sat by Pulse 95 96 Oximetry Medical Decision Making - Medical Decision Making Patient is 67-year-old man here for ground-level fall striking his forehead. Patient seen and evaluated, then after workup, he reevaluation. Discussed results with patient and family. Patient is feeling better and would like to go home at this point. Discussed appropriate further care and follow-up as well as return parameters. - Lab Data Result diagrams: 07/04/22 20:00 07/04/22 20:00 Lab Results 07/04/22 07/04/22 07/04/22 Range/Units 20:00 20:00 20:00 WBC 11.5 H (3.8-10.6) k/uL RBC 5.49 (4.30-5.90) m/uL Hgb 14.7 (13.0-17.5) gm/dL Hct 47.6 (39.0-53.0) % MCV 86.6 (80.0-100.0) fL MCH 26.8 (25.0-35.0) pg MCHC 30.9 L (31.0-37.0) g/dL RDW 14.6 (11.5-15.5) % Plt Count 256 (150-450) k/uL MPV 7.2 Neutrophils % 76 % Lymphocytes % 13 % Monocytes % 6 % Eosinophils % 3 % Basophils % 1 % Neutrophils # 8.8 H (1.3-7.7) k/uL Lymphocytes # 1.4 (1.0-4.8) k/uL Monocytes # 0.7 (0-1.0) k/uL Eosinophils # 0.4 (0-0.7) k/uL Basophils # 0.1 (0-0.2) k/uL Hypochromasia Slight VBG pH (7.31-7.41) VBG pCO2 (37-51) mmHg VBG HCO3 (24-28) mmol/L Sodium 137 (137-145) mmol/L Potassium 5.1 (3.5-5.1) mmol/L Chloride 104 (98-107) mmol/L Carbon Dioxide 20 L (22-30) mmol/L Anion Gap 13 mmol/L BUN 29 H (9-20) mg/dL Creatinine 0.92 (0.66-1.25) mg/dL Est GFR (CKD-EPI)AfAm >90 (>60 ml/min/1.73 sqM) Est GFR (CKD-EPI)NonAf 85 (>60 ml/min/1.73 sqM) Glucose 108 H (74-99) mg/dL Plasma Lactic Acid Son 1.5 (0.7-2.0) mmol/L Calcium 8.6 (8.4-10.2) mg/dL Total Bilirubin 0.5 (0.2-1.3) mg/dL AST 34 (17-59) U/L ALT 16 (4-49) U/L Alkaline Phosphatase 86 (38-126) U/L Troponin I (0.000-0.034) ng/mL Total Protein 6.7 (6.3-8.2) g/dL Albumin 4.1 (3.5-5.0) g/dL 07/04/22 07/04/22 Range/Units 20:00 20:34 WBC (3.8-10.6) k/uL RBC (4.30-5.90) m/uL Hgb (13.0-17.5) gm/dL Hct (39.0-53.0) % MCV (80.0-100.0) fL MCH (25.0-35.0) pg MCHC (31.0-37.0) g/dL RDW (11.5-15.5) % Plt Count (150-450) k/uL MPV Neutrophils % % Lymphocytes % % Monocytes % % Eosinophils % % Basophils % % Neutrophils # (1.3-7.7) k/uL Lymphocytes # (1.0-4.8) k/uL Monocytes # (0-1.0) k/uL Eosinophils # (0-0.7) k/uL Basophils # (0-0.2) k/uL Hypochromasia VBG pH 7.35 (7.31-7.41) VBG pCO2 46 (37-51) mmHg VBG HCO3 26 (24-28) mmol/L Sodium (137-145) mmol/L Potassium (3.5-5.1) mmol/L Chloride (98-107) mmol/L Carbon Dioxide (22-30) mmol/L Anion Gap mmol/L BUN (9-20) mg/dL Creatinine (0.66-1.25) mg/dL Est GFR (CKD-EPI)AfAm (>60 ml/min/1.73 sqM) Est GFR (CKD-EPI)NonAf (>60 ml/min/1.73 sqM) Glucose (74-99) mg/dL Plasma Lactic Acid Son (0.7-2.0) mmol/L Calcium (8.4-10.2) mg/dL Total Bilirubin (0.2-1.3) mg/dL AST (17-59) U/L ALT (4-49) U/L Alkaline Phosphatase (38-126) U/L Troponin I <0.012 (0.000-0.034) ng/mL Total Protein (6.3-8.2) g/dL Albumin (3.5-5.0) g/dL - EKG Data -: EKG Interpreted by [facility] EKG shows normal: sinus rhythm, axis (Normal), intervals (QRS duration 154 ms, prolonged consistent with a right bundle-branch block. OK and QTc are both normal.), QRS complexes (Right bundle-branch block pattern) Rate: normal (Rate 72 bpm) Disposition Clinical Impression: Closed head injury Disposition: HOME SELF-CARE Condition: Good Instructions (If sedation given, give patient instructions): Head Injury (ED) Is patient prescribed a controlled substance at d/c from ED?: No Referrals: Alex Robbins DO [Primary Care Provider] - 1-2 days
[2022-07-04 20:36] LABS: Basophils # (A) 0.1 k/uL (0-0.2); Basophils % (A) 1 %; Eosinophils # (A) 0.4 k/uL (0-0.7); Eosinophils % (A) 3 %; HCT 47.6 % (39.0-53.0); HGB 14.7 gm/dL (13.0-17.5); Hypochromasia Slight; Lymphocytes # (A) 1.4 k/uL (1.0-4.8); Lymphocytes % (A) 13 %; MCH 26.8 pg (25.0-35.0); MCHC 30.9 g/dL (31.0-37.0); MCV 86.6 fL (80.0-100.0); Mean Platelet Volume 7.2; Monocytes # (A) 0.7 k/uL (0-1.0); Monocytes % (A) 6 %; Neutrophils # (A) 8.8 k/uL (1.3-7.7); Neutrophils % (A) 76 %; Platelet Count 256 k/uL (150-450); RBC 5.49 m/uL (4.30-5.90); RDW 14.6 % (11.5-15.5); WBC 11.5 k/uL (3.8-10.6)
[2022-07-04 20:53] LABS: ALT 16 U/L (4-49); African American GFR (CKD) >90 (>60 ml/min/1.73 sqM); Anion Gap 13 mmol/L; Blood Urea Nitrogen 29 mg/dL (9-20); Calcium 8.6 mg/dL (8.4-10.2); Carbon Dioxide 20 mmol/L (22-30); Chloride 104 mmol/L (98-107); Glucose 108 mg/dL (74-99); Non-African American GFR(CKD) 85 (>60 ml/min/1.73 sqM); Sodium 137 mmol/L (137-145); Total Bilirubin 0.5 mg/dL (0.2-1.3)
[2022-07-04 20:55] LABS: AST 34 U/L (17-59); Albumin 4.1 g/dL (3.5-5.0); Alkaline Phosphatase 86 U/L (38-126); Potassium 5.1 mmol/L (3.5-5.1); Total Protein 6.7 g/dL (6.3-8.2)
[2022-07-04 21:03] LABS: VBG PH 7.35 (7.31-7.41)
--- NOTE | 2022-07-04 22:29 | CT ---
EXAMINATION TYPE: CT brain cspine wo con DATE OF EXAM: 07/04/2022 COMPARISON: CT brain 08/19/2014 HISTORY: fall CT DLP: 1578.7 mGycm Automated exposure control for dose reduction was used. Images of brain and cervical spine obtained with no contrast. Ventricles have fairly normal size. There is no mass effect nor midline shift. No sign of intracrania l hemorrhage. The calvarium is intact. There is normal aeration of the mastoid sinuses. The cervical vertebrae show fairly normal alignment. There is degenerative disc space narrowing at C4 -5 and C5-6. There is multilevel cervical facet arthropathy. No compression fracture. No evidence of focal bone destruction. IMPRESSION: Negative CT scan of the brain. No adverse change compared to the old exam. Cervical multilevel spondylotic changes. No fracture seen. Dilated esophagus noted. Distal esophageal obstruction is possible. Followup recommended.
[2022-07-04 23:23] VITALS: BP 148/84; PULSE 74; RESP 18
== END 2022-07-04 23:27 | disposition home or self-care (01) ==
LOC: EC 19:36
DX: W19.XXXA Unspecified fall, initial encounter (principal); I10 Essential (primary) hypertension; J44.9 Chronic obstructive pulmonary disease, unspecified; K21.9 Gastro-esophageal reflux disease without esophagitis; Z79.899 Other long term (current) drug therapy; Z87.891 Personal history of nicotine dependence; S09.90XA Unspecified injury of head, initial encounter
CPT/HCPCS: 36415; 93005; 80053; 82803; 83605; 84484; 85025; 72125; 70450; 99285; 96374; J2270

== ENCOUNTER → 2022-08-31 | Outpatient (CLI) | payer MEDICARE ==
--- NOTE | 2022-08-31 12:10 | US ---
EXAMINATION TYPE: US scrotum with doppler. Grayscale and color Doppler Duplex imaging performed of jorden pascal scrotum. DATE OF EXAM: 08/31/2022 COMPARISON: US CLINICAL HISTORY: N50.89 SPECIFIED DISORDERS OF THE MALE GENITAL ORG. Bilateral testicular dull pain x 1 year. Hx prostate cancer with surgery. EXAM MEASUREMENTS: TESTICLES: Right Testicle: 3.4 x 2.9 x 2.3 cm. Prominent vessels seen, no distinct mass seen. Slightly lobulate d contour inferiorly. Left Testicle: 3.8 x 2.7 x 2.4 cm EPIDIDYMIS HEAD: Right Epididymis: 1.2 x 1.4 x 0.8 cm. Anechoic area seen within right epididymal head: 0.5 x 0.5 x 0 .5 cm. *Additional complex area seen that is connected to right epididymal head: 0.5 x 0.5 x 0.4 cm. Left Epididymis: 0.7 x 1.4 x 1.3 cm. Anechoic area seen within left epididymal head: 0.4 x 0.4 x 0 .4 cm. Doppler performed to assess for testicular vascularity; bilateral color flow and waveforms are seen. Presence of hydroceles: Yes, debris seen within the right: 4.7 x 4.0 x 1.9 cm. -Left: 3.1 x 2.3 x 0.6 cm. Presence of varicoceles: Not visualized IMPRESSION: 1. Bilateral hydroceles with debris noted on the right. 2 epididymal cysts.
== END | disposition home or self-care (01) ==
LOC: RADUSWWP 10:48
PROVIDERS: ATTEND Urology
DX: N43.3 Hydrocele, unspecified (principal); N50.3 Cyst of epididymis
CPT/HCPCS: 76870; 93975

== ENCOUNTER 2022-09-25 10:29 | Day surgery (SDC) | payer MEDICARE ==
[~2022-09-25 10:29] MED LIST changes: -ACETAMINOPHEN TAB 500 MG TAB PO PRN; -DEXAMETHASONE SOD PHOSPHATE 4 MG/ML 1 ML VIAL IV ONE; -GABAPENTIN 300 MG CAP PO PRN; -HYDROmorphone 0.5 MG/0.5 ML SYRINGE IVP PRN; +LIDOCAINE 1% (10MG/ML) FOR IV START INTRADERMA PRN; -MELOXICAM 7.5 MG TAB PO PRN; -MIDAZOLAM 2 MG/2 ML VIAL IV PRN; -ONDANSETRON 4 MG/2 ML VIAL IVP ONE; -ONDANSETRON 4 MG/2 ML VIAL IVP PRN; -TRANEXAMIC ACID 1,000 MG in SODIUM CHLORIDE 0.9% 100 ML IVPB PRN
[2022-09-25 11:00] VITALS: TEMP 96.8
[2022-09-25] MEDS ORDERED: LIDOCAINE 2% INJ 20 MG/ML (2 ML VIAL) ONE (11:51)
[2022-09-25] MEDS ORDERED: PROPOFOL 10 MG/ML 20 ML VIAL IV ONE (11:51)
--- NOTE | 2022-09-25 11:52 | P.GSHP ---
History of Present Illness H&P Date: 09/25/22 Chief Complaint: colon cancer screening 67-year-old male here today for colonoscopy. Last colonoscopy 5 years ago. Patient with family history of colon cancer in his father. Patient with history of polyps. Patient with personal history of esophageal and prostate cancer. Past Medical History Past Medical History: Cancer, COPD, GERD/Reflux, Hypertension, Osteoarthritis (OA), Prostate Disorder Additional Past Medical History / Comment(s): Neuropathy, hx esophageal cancer treated with surgery - 2008,. prostate cancer current. arthritis in hands History of Any Multi-Drug Resistant Organisms: None Reported Past Surgical History: Appendectomy, Hernia Repair, Joint Replacement, Orthopedic Surgery Additional Past Surgical History / Comment(s): Bilateral elbow, bilateral wrist carpal tunnel, bilateral rotator cuff surgeryx3 , right knee arthroscopy, right knee replacement, surgery for esophageal cancer (removed part of esophagus and removed part of stomach making it into carrot shape per patient), hernia repair X4.( Umbilical ). robotic prostatectomy with bilateral stent placement and pelvic lymph node removal 08/11/20. Past Anesthesia/Blood Transfusion Reactions: Previous Problems w/ Anesthesia Additional Past Anesthesia/Blood Transfusion Reaction / Comment(s): can not lay flat- "stomach acid will come out my nose". no blood transfusions Smoking Status: Former smoker - Past Family History Father Family Medical History: Cancer Additional Family Medical History / Comment(s): COLON Cancer. Mother Family Medical History: Cancer, Deep Vein Thrombosis (DVT) Additional Family Medical History / Comment(s): Brain aneurysm. Medications and Allergies Home Medications Medication Instructions Recorded Confirmed Type Omeprazole 40 mg PO HS 04/26/17 09/25/22 History cloNIDine HCL [Catapres] 0.1 mg PO BID 10/02/18 09/25/22 History Losartan Potassium 100 mg PO DAILY 03/20/19 09/25/22 History Omeprazole 20 mg PO BID 06/08/19 09/25/22 History Fluticasone/Umeclidin/Vilanter 1 puff INHALATION RT-DAILY 05/25/21 09/25/22 History [Trelegy Ellipta 200-62.5-25] Famotidine 20 mg PO BID 02/08/22 09/25/22 History Multivit-Min/FA/Lycopen/Lutein 1 tab PO DAILY 02/08/22 09/25/22 History [Centrum Silver Men Tablet] Ipratropium-Albuterol Nebulize 3 ml INHALATION RT-QID #0 02/12/22 09/25/22 Rx [Duoneb 0.5 mg-3 mg/3 ml Soln] Baclofen [Lioresal] 20 mg PO DAILY 07/04/22 09/25/22 History DULoxetine HCL [Cymbalta] 60 mg PO DAILY 07/04/22 09/25/22 History rOPINIRole HCL [Requip] 2 mg PO HS 07/04/22 09/25/22 History Allergies Allergy/AdvReac Type Severity Reaction Status Date / Time No Known Allergies Allergy Verified 09/25/22 11:03 Surgical - Exam Vital Signs Temp Pulse Resp BP Pulse Ox 96.8 F L 86 24 158/87 94 L 09/25/22 10:58 09/25/22 10:58 09/25/22 10:58 09/25/22 10:58 09/25/22 10:58 Physical exam: General: Well-developed, well-nourished HEENT: Normocephalic, sclerae nonicteric Abdomen: Nontender, nondistended Extremities: No edema Neuro: Alert and oriented Assessment and Plan (1) Colon cancer screening Narrative/Plan: Will proceed with colonoscopy at this time. Current Visit: Yes Status: Acute Code(s): Z12.11 - ENCOUNTER FOR SCREENING FOR MALIGNANT NEOPLASM OF COLON SNOMED Code(s): 887194315
--- NOTE | 2022-09-25 12:02 | P.PCN ---
Date of Procedure: 09/25/22 Procedure(s) Performed: PREOPERATIVE DIAGNOSIS: Colon cancer screening, family history of colon cancer POSTOPERATIVE DIAGNOSIS: Poor prep, aborted procedure PROCEDURE: Attempted colonoscopy ANESTHESIA: MAC SURGEON: Carlin Souza M.D. SPECIMENS: None ENDOSCOPIC PROCEDURE: The patient was placed on the endoscopy table in the left decubitus position. The Olympus colonoscope was inserted into the anus and passed under direct visualization to the descending colon. From that point we decided to abort because there was too much stool present throughout the colon to adequately evaluate the mucosa. I was able to see some diverticulosis. Otherwise no definite abnormalities were noted. Digital rectal examination was normal. The patient was taken to the recovery room in stable condition per anesthesia guidelines. RECOMMENDATIONS: Patient will require reattempts at colonoscopy.
[2022-09-25 12:10] VITALS: RESP 16
[2022-09-25 12:30] VITALS: BP 132/75; PULSE 99
== END 2022-09-25 13:02 | disposition home or self-care (01) ==
LOC: ORWHC2ENDO 10:29
PROVIDERS: ATTEND Surgery
DX: Z12.11 Encounter for screening for malignant neoplasm of colon (principal); I10 Essential (primary) hypertension; E78.5 Hyperlipidemia, unspecified; J44.9 Chronic obstructive pulmonary disease, unspecified; K21.9 Gastro-esophageal reflux disease without esophagitis; Z85.01 Personal history of malignant neoplasm of esophagus; Z85.46 Personal history of malignant neoplasm of prostate; Z80.0 Family history of malignant neoplasm of digestive organs; Z90.49 Acquired absence of other specified parts of digestive tract; Z90.79 Acquired absence of other genital organ(s); Z87.891 Personal history of nicotine dependence; Z82.49 Family history of ischemic heart disease and other diseases of the circulatory system; Z79.899 Other long term (current) drug therapy
CPT/HCPCS: G0104; J2704; J2001; 45378

== ENCOUNTER → 2022-10-15 | Outpatient (CLI) | payer MEDICARE ==
[2022-10-15 09:11] LABS: African American GFR (CKD) >90 (>60 ml/min/1.73 sqM); Blood Urea Nitrogen 26 mg/dL (9-20); Non-African American GFR(CKD) >90 (>60 ml/min/1.73 sqM)
--- NOTE | 2022-10-15 10:43 | CT ---
EXAMINATION TYPE: CT urogram wo/w con DATE OF EXAM: 10/15/2022 COMPARISON: 06/03/2020 HISTORY: 67-year-old male R31.0, microhematuria TECHNIQUE: Contiguous axial scanning of the abdomen and pelvis performed without and with IV Contrast , patient injected with 70 mL of Isovue 300. Delayed images through the kidneys and bladder were obta ined. Coronal/sagittal reconstructions performed. Reconstruction generated on a dedicated independent workstation. CT DLP: 3262.8 mGycm Automated exposure control for dose reduction was used. FINDINGS: Heart normal size without pericardial effusion. RCA coronary calcifications are present. There are po stsurgical changes of esophagectomy with gastric pull-through procedure. Probably ingested debris dis tending the gastric pull-through. Adjacent right lower lung areas of atelectasis. No pleural effusion . No focal liver lesion. Portal venous system is patent. No biliary ductal dilatation. No gallbladder d istention. A low-density 2.5 cm nodule of the right adrenal gland remains unchanged from 06/03/2020 suggestive of a lipid rich adrenal adenoma. Left adrenal gland, spleen, and pancreas within normal limits. Moderate atherosclerotic calcifications infrarenal abdominal aorta without aneurysm. Prominent fluid-filled small bowel loops mid and lower abdomen and pelvis. No dilated small bowel, fr ee fluid, free air. No mesenteric or retroperitoneal lymphadenopathy. There is moderate stool burden. Left-sided colonic diverticulosis. Some mural based thickening along the proximal sigmoid colon, series 11 axial image 54. No pericolonic inflammatory change. No renal calculi or hydronephrosis. There is a tiny 6 mm hypodense density along the lateral cortex o f the mid to lower right kidney likely a tiny cortical cysts. No suspicious renal mass is seen. No ab normal filling defect within the renal collecting systems. Only short segments of the mid and distal ureters remain nonopacified. No obvious filling defect or soft tissue thickening along either ureter. Bladder not distended. On the delayed scan, no obvious intraluminal filling defect is seen. There is a small to moderate-sized fatty in direct left inguinal hernia. Prostate gland is surgically absent. No abnormal fluid collection in the pelvis or pelvic lymphadenopathy. Bones: Osteitis pubis. Mild to moderate degenerative change of both hips. Bilateral L5 pars defects with a grade 1, nearly grade 2 anterolisthesis at L5-S1 with moderate degenerative disc disease. Hype rtrophic facet arthropathy lower lumbar spine. IMPRESSION: 1. NO NEPHROLITHIASIS OR HYDRONEPHROSIS. STATUS POST PROSTATECTOMY. NO SUSPICIOUS RENAL MASS OR abnor mality along the ureters identified. 2. Status post esophagectomy with gastric pull-through. Stable 2.5 cm lipid rich right adrenal adenom a compared to 06/03/2020. 3. Left-sided colonic diverticulosis. There is some focal mural based soft tissue thickening along th e proximal sigmoid colon that could represent adherent stool or wall redundancy. Direct visualization to exclude neoplasm if routine screening colonoscopy is not being performed. 4. Incidental: Bilateral L5 pars defects with grade 1 anterolisthesis.
== END | disposition home or self-care (01) ==
LOC: RADCTMAIN 08:23
PROVIDERS: ATTEND Urology
DX: D35.01 Benign neoplasm of right adrenal gland (principal); K57.30 Diverticulosis of large intestine without perforation or abscess without bleeding; M43.16 Spondylolisthesis, lumbar region; R31.0 Gross hematuria; Z86.018 Personal history of other benign neoplasm; Z90.79 Acquired absence of other genital organ(s)
CPT/HCPCS: 82565; 84520; 74178; 36415; 74400; Q9967

== ENCOUNTER → 2023-02-19 | Outpatient (CLI) | payer MEDICARE | END | disposition home or self-care (01) | LOC: LABWHC1 10:37 | PROVIDERS: ATTEND Urology | DX: C61 Malignant neoplasm of prostate (principal) | CPT/HCPCS: 36415; 84153 ==

== ENCOUNTER → 2023-04-05 | Outpatient (CLI) | payer MEDICARE ==
--- NOTE | 2023-04-06 08:09 | PE ---
EXAMINATION TYPE: PET CT fusion skull to thigh DATE OF EXAM: 04/05/2023 CLINICAL INDICATION:Male, 67 years old with history of C61; TECHNIQUE: Following the intravenous administration of 5.08 mCi of Ga-68 Illuccix (PSMA), whole bod y images are performed from the skull base to the midthigh. Images are reviewed on the computer in t he coronal, axial, and sagittal planes. Reconstructed rotating images are created on independent wor kstation and reviewed on the computer. A non-contrast CT is performed in conjunction with the PET s can. COMPARISON: CT 03/29/2020, 10/15/2022, 06/03/2020, PET/CT None, FINDINGS: Mediastinal SUV mean is 1.0 . Hepatic parenchyma SUV mean is 3.2. SKULL BASE AND NECK: No suspicious radiotracer activity. CHEST, MEDIASTINUM, AND HILAR REGION: No suspicious radiotracer activity. ABDOMEN AND PELVIS: No suspicious radiotracer activity. OSSEOUS STRUCTURES: No suspicious radiotracer activity. OTHER CT: Atherosclerosis at the carotid bifurcations and coronary arteries. Right shoulder arthropla sty changes. Hardware appears intact. Degeneration of the right, clavicular joint. Esophagectomy with gastric pull-through changes. Fat-containing umbilical hernia. Scattered colonic diverticulosis. Pro state gland appears surgically absent. Left fat-containing ventral hernia. IMPRESSION: No suspicious radiotracer activity.
== END | disposition home or self-care (01) ==
LOC: RADPETMAIN 07:27
PROVIDERS: ATTEND Urology
DX: C61 Malignant neoplasm of prostate (principal); R97.20 Elevated prostate specific antigen [PSA]
CPT/HCPCS: 78815; A9596

== ENCOUNTER → 2023-09-26 | Outpatient (CLI) | payer MEDICARE ==
[2023-09-26 16:06] LABS: Albumin 3.8 g/dL (3.8-4.9)
[2023-09-26 16:33] LABS: Magnesium 2.2 mg/dL (1.5-2.4)
[2023-09-26 16:35] LABS: Prostate Specific Antigen <0.01 ng/mL (0.000-4.500); Testosterone <10.00 ng/dL (86.98-780.10)
[2023-09-27 14:51] LABS: Zinc, Serum 64 ug/dL (60-130)
[2023-09-27 16:25] LABS: Gamma Globulin 0.55 g/dL (0.70-1.50)
== END | disposition home or self-care (01) ==
LOC: LABWHC1 08:50
PROVIDERS: ATTEND Psychiatry & Neurology Neurology
DX: C61 Malignant neoplasm of prostate (principal); C77.9 Secondary and unspecified malignant neoplasm of lymph node, unspecified; G25.0 Essential tremor; G62.9 Polyneuropathy, unspecified
CPT/HCPCS: 36415; 82525; 82607; 83036; 83735; 84153; 84165; 84207; 84403; 84630

== ENCOUNTER → 2023-10-16 | Outpatient (CLI) | payer MEDICARE ==
--- NOTE | 2023-10-17 09:55 | MR ---
EXAMINATION TYPE: MR lumbar spine wo con DATE OF EXAM: 10/16/2023 COMPARISON: HISTORY: Low back pain into left buttocks post fall x 3 months CONTRAST: 0 mL intravenous Gadavist. TECHNIQUE: Multiplanar, multisequence images of the lumbar spine were acquired. FINDINGS: L5-S1: There is a minimal grade 1 spondylolisthesis of L5 anteriorly on S1. Disc uncovering is presen t. No thecal sac contact is evident. No spinal canal stenosis is present. There is moderate right for aminal narrowing. L4-L5: No significant disc bulge or disc herniation. Disc desiccation present. No spinal canal steno sis. Mild bilateral foraminal narrowing is present. L3-L4: Some disc space narrowing is present. Disc desiccation is present. No significant disc bulge o r disc herniation. No spinal canal stenosis. Mild left foraminal narrowing is present. L2-L3: No significant disc bulge or disc herniation. No spinal canal stenosis. No foraminal stenosi s. L1-L2: No significant disc bulge or disc herniation. No spinal canal stenosis. No foraminal stenosi s. T12-L1: No significant disc bulge or disc herniation. No spinal canal stenosis. No foraminal stenos is. The left S1 sacral alar has abnormal signal on the axial T2-weighted sequences. This appears to be an interval change from the 04/05/2023 CT. Consider additional evaluation with a repeat CT of the sacrum . Vertebral body heights are preserved. IMPRESSION: 1. Abnormal signal left S1 sacral ala. Additional evaluation for acute/subacute injury with CT recomm ended. 2. Mild disc desiccation L4-5, L3-4. 3. Minimal grade 1 spondylolisthesis of L5 anterior on S1 #4 moderate right foraminal narrowing L5-S1 and mild bilateral foraminal narrowing L4-5 and left L3-4
== END | disposition home or self-care (01) ==
LOC: RADMRIMAIN 09:23
PROVIDERS: ATTEND Orthopaedic Surgery Orthopaedic Surgery of the Spine
DX: M43.16 Spondylolisthesis, lumbar region (principal); M43.17 Spondylolisthesis, lumbosacral region; M99.73 Connective tissue and disc stenosis of intervertebral foramina of lumbar region; M51.36 Other intervertebral disc degeneration, lumbar region; S39.012A Strain of muscle, fascia and tendon of lower back, initial encounter
CPT/HCPCS: 72148

== ENCOUNTER 2023-10-23 18:24 | Inpatient (IN) | payer MEDICARE ==
--- NOTE | 2023-10-23 18:34 | ED ---
SOB HPI - General Source: patient, RN notes reviewed <Roxie Bella - Last Filed: 10/23/23 18:33> <Gabby Roberson - Last Filed: 10/24/23 00:48> - General Stated Complaint: SOB Time Seen by Provider: 10/23/23 18:34 - History of Present Illness Initial Comments: Patient is 68-year-old male presented ER with chief complaint shortness of breath. Patient was sent in by Dr. Mckenzie. Patient does endorse chest pain. Patient is normally on 3 L of oxygen and is currently on 3 L. (Roxie Bella) 68-year-old male with past medical history of COPD on 3 L home O2 who presents to the emergency department with shortness of breath he states he has been short of breath and coughing for the past 4 days. He has grandchildren that are sick. Denies productive cough. Has been taking his steroids and breathing treatments as directed but continues to be short of breath. He called his pulmonology office who told him to come into the emergency room. He denies history of cardiac issues. Admits chills. No lower extremity swelling. No history of DVT or PE. No other alleviating, precipitating modifying factors (Gabby Roberson) - Related Data Home Medications Medication Instructions Recorded Confirmed Omeprazole 40 mg PO HS 04/26/17 10/23/23 cloNIDine HCL [Catapres] 0.1 mg PO BID 10/02/18 10/23/23 Losartan Potassium 100 mg PO DAILY 03/20/19 10/23/23 Omeprazole 20 mg PO BID 06/08/19 10/23/23 Fluticasone/Umeclidin/Vilanter 1 puff INHALATION RT-DAILY 05/25/21 10/23/23 [Trelegy Ellipta 200-62.5-25] Baclofen [Lioresal] 20 mg PO HS 07/04/22 10/23/23 DULoxetine HCL [Cymbalta] 60 mg PO DAILY 07/04/22 10/23/23 rOPINIRole HCL [Requip] 2 mg PO BID 07/04/22 10/23/23 Albuterol Sulfate [Albuterol 2 puff INHALATION RT-QID 10/23/23 10/23/23 Sulfate Hfa] Cyclobenzaprine [Flexeril] 10 mg PO TID PRN 10/23/23 10/23/23 Ipratropium-Albuterol Nebulize 3 ml INHALATION RT-QID PRN 10/23/23 10/23/23 [Duoneb 0.5 mg-3 mg/3 ml Soln] Magnesium Oxide [Mag-Ox] 250 mg PO DAILY 10/23/23 10/23/23 predniSONE 10 mg PO DAILY 10/23/23 10/23/23 Allergies Allergy/AdvReac Type Severity Reaction Status Date / Time No Known Allergies Allergy Verified 10/23/23 19:19 Review of Systems ROS Other: All systems not noted in ROS Statement are negative. <Roxie Bella - Last Filed: 10/23/23 18:33> ROS Other: All systems not noted in ROS Statement are negative. <Gabby Roberson - Last Filed: 10/24/23 00:48> ROS Statement: Those systems with pertinent positive or pertinent negative responses have been documented in the HPI. Past Medical History Past Medical History: Cancer, COPD, GERD/Reflux, Hypertension Additional Past Medical History / Comment(s): Neuropathy, hx esophageal cancer treated with surgery - 2008,. prostate cancer current History of Any Multi-Drug Resistant Organisms: None Reported Past Surgical History: Appendectomy, Hernia Repair, Joint Replacement, Orthopedic Surgery Additional Past Surgical History / Comment(s): Bilateral elbow, bilateral wrist carpal tunnel, bilateral rotator cuff surgeryx3 , right knee arthroscopy, right knee replacement, surgery for esophageal cancer (removed part of esophagus and removed part of stomach making it into carrot shape per patient), hernia repair X4. robotic prostatectomy with bilateral stent placement and pelvic lymph node removal 08/11/20 Past Anesthesia/Blood Transfusion Reactions: Previous Problems w/ Anesthesia Additional Past Anesthesia/Blood Transfusion Reaction / Comment(s): can not lay flat- "stomach acid will come out my nose" Smoking Status: Former smoker - Past Family History Father Family Medical History: Cancer Additional Family Medical History / Comment(s): COLON Cancer. Mother Family Medical History: Cancer, Deep Vein Thrombosis (DVT) Additional Family Medical History / Comment(s): Brain aneurysm. <Roxie Bella - Last Filed: 10/23/23 18:33> General Exam <Roxie Bella - Last Filed: 01/03/24 18:33> Limitations: physical limitation General appearance: alert, in distress Head exam: Present: atraumatic, normocephalic, normal inspection Eye exam: Present: normal appearance ENT exam: Present: normal exam, mucous membranes moist Respiratory exam: Present: respiratory distress, wheezes, accessory muscle use Cardiovascular Exam: Present: normal rhythm, tachycardia GI/Abdominal exam: Present: soft, normal bowel sounds. Absent: distended, tenderness, guarding, rebound, rigid Extremities exam: Present: normal inspection, full ROM, normal capillary refill. Absent: tenderness, pedal edema, joint swelling, calf tenderness Neurological exam: Present: alert, oriented X3, CN II-XII intact Skin exam: Present: warm, dry, intact, normal color. Absent: rash <Gabby Roberson - Last Filed: 10/24/23 00:48> - General Exam Comments Initial Comments: Visual Physical Exam Vital signs reviewed General: Well-appearing, nontoxic, no acute distress. Head: Normocephalic, atraumatic Eyes: PERRLA, EOMI ENT: Airway patent Chest: Nonlabored breathing Skin: No visual rash, normal skin tone Neuro: Alert and oriented 3 Musculoskeletal: No gross abnormalities (Roxie Bella) Course Vital Signs 10/23/23 10/23/23 10/23/23 18:34 18:53 19:00 Temperature 98.7 F Pulse Rate 119 H Respiratory 20 24 Rate Blood Pressure O2 Sat by Pulse 88 L Oximetry Fraction of 40 Inspired Oxygen (FIO2) 10/23/23 10/23/23 10/23/23 19:33 19:41 19:42 Temperature Pulse Rate 107 H 107 H Respiratory Rate Blood Pressure O2 Sat by Pulse Oximetry Fraction of 40 Inspired Oxygen (FIO2) 10/23/23 10/23/23 10/24/23 20:30 23:55 00:08 Temperature Pulse Rate 102 H 96 93 Respiratory 22 Rate Blood Pressure 138/80 O2 Sat by Pulse 98 Oximetry Fraction of 40 Inspired Oxygen (FIO2) Medical Decision Making <Roxie Bella - Last Filed: 10/23/23 18:33> - Lab Data Result diagrams: 10/23/23 18:46 10/23/23 18:46 <Gabby Roberson - Last Filed: 10/24/23 00:48> - Medical Decision Making I performed the quick note portion of the exam. Electronically signed by Roxie Bella PA-C (Roxie Bella) Was pt. sent in by a medical professional or institution ([facility], [facility], urgent care, hospital, or custodial...) When possible be specific @ -No Did you speak to anyone other than the patient for history (EMS, parent, family, police, friend...)? What history was obtained from this source @ - Did you review nursing and triage notes (agree or disagree)? Why? @ -I reviewed and agree with nursing and triage notes Were old charts reviewed (outside hosp., previous admission, EMS record, old EKG, old radiological studies, urgent care reports/EKG's, custodial records)? Report findings @ -No old charts were reviewed Differential Diagnosis (chest pain, altered mental status, abdominal pain women, abdominal pain men, vaginal bleeding, weakness, fever, dyspnea, syncope, heada yrn, dizziness, GI bleed, back pain, seizure, CVA, palpatations, mental health, musculoskeletal)? @ -Differential Dyspnea: Coronary syndrome, arrhythmia, tamponade, asthma, COPD, pulmonary embolism, pneumonia, pneumothorax, pulmonary effusion, anaphylaxis, diabetic ketoacidosis, flailed chest, pulmonary contusion, diaphragmatic rupture, anemia, neuromuscular, this is not meant to be an all-inclusive list. EKG interpreted by me (3pts min.). @ -Yes and demonstrates sinus tachycardia with a rate of 117. [place] interval 108. QRS 145. QTC of 424. No acute ST segment elevations. Right bundle branch block X-rays interpreted by me (1pt min.). @ -yes and demonstrates left lower lobe infiltrate CT interpreted by me (1pt min.). @ -None done U/S interpreted by me (1pt. min.). @ -None done What testing was considered but not performed or refused? (CT, X-rays, U/S, labs)? Why? @ -None What meds were considered but not given or refused? Why? @ -None Did you discuss the management of the patient with other professionals (professionals i.e. [facility], [facility], lab, RT, psych nurse, high school social science teacher, shell assembler, teacher, international first officer, case technician)? Give summary @ -dr robbins who will admit patient Was smoking cessation discussed for >3mins.? @ -No Was critical care preformed (if so, how long)? @ -40 minutes for bipap management Were there social determinants of health that impacted care today? How? (Homelessness, low income, unemployed, alcoholism, drug addiction, transportation, low edu. Level, literacy, decrease access to med. care, custodial, rehab)? @ -No Was there de-escalation of care discussed even if they declined (Discuss DNR or withdrawal of care, Hospice)? DNR status @ -No What co-morbidities impacted this encounter? (DM, HTN, Smoking, COPD, CAD, Cancer, CVA, ARF, Chemo, Hep., AIDS, mental health diagnosis, sleep apnea, morbid obesity)? @ -copd on home o2 Was patient admitted / discharged? Hospital course, mention meds given and route, prescriptions, significant lab abnormalities, going to OR and other pertinent info. @ -Admitted. Upon arrival patient was placed into room 1. He is significant respiratory distress and therefore respiratory therapy is called and placed the patient on BiPAP. Patient placed on continuous pulse ox and cardiac monitoring. Laboratory studies are conducted. Viral swab is performed. Patient positive for RSV. He does have a leukocytosis with a left basilar infiltrate. Antibiotics are started for secondary bacterial infection. Pro-calcitonin was ordered however pending. Spoke with Dr. Robbins who agreed to admit the patient. I will place pulmonology on consult Undiagnosed new problem with uncertain prognosis? @ -No Drug Therapy requiring intensive monitoring for toxicity (Heparin, Nitro, Insulin, Cardizem)? @ -No Were any procedures done? @ -No Diagnosis/symptom? @ -Acute BiPAP dependent respiratory failure, acute COPD exacerbation, acute RSV bronchitis, secondary bacterial pneumonia Acute, or Chronic, or Acute on Chronic? @ -Acute Uncomplicated (without systemic symptoms) or Complicated (systemic symptoms)? @ -Complicated Side effects of treatment? @ -No Exacerbation, Progression, or Severe Exacerbation? @ -Yes Poses a threat to life or bodily function? How? (Chest pain, [place], [place], pneumonia, PE, COPD, DKA, ARF, appy, cholecystitis, CVA, Diverticulitis, Homicidal, Suicidal, threat to staff... and all critical care pts) @ -Yes as patient does arrive in significant respiratory distress (Gabby Roberson) - Lab Data Lab Results 10/23/23 10/23/23 10/23/23 Range/Units 18:46 18:46 18:46 WBC 21.2 H (3.8-10.6) k/uL RBC 4.81 (4.30-5.90) m/uL Hgb 13.6 (13.0-17.5) gm/dL Hct 41.5 (39.0-53.0) % MCV 86.3 (80.0-100.0) fL MCH 28.2 (25.0-35.0) pg MCHC 32.7 (31.0-37.0) g/dL RDW 15.0 (11.5-15.5) % Plt Count 254 (150-450) k/uL MPV 7.3 Neutrophils % 94 % Lymphocytes % 1 % Monocytes % 3 % Eosinophils % 1 % Basophils % 0 % Neutrophils # 19.9 H (1.3-7.7) k/uL Lymphocytes # 0.3 L (1.0-4.8) k/uL Monocytes # 0.7 (0-1.0) k/uL Eosinophils # 0.1 (0-0.7) k/uL Basophils # 0.1 (0-0.2) k/uL PT (10.0-12.5) sec INR (<1.2) APTT (22.0-30.0) sec Sodium 134 L (137-145) mmol/L Potassium 3.6 (3.5-5.1) mmol/L Chloride 94 L (98-107) mmol/L Carbon Dioxide 26 (22-30) mmol/L Anion Gap 14 mmol/L BUN 18 (9-20) mg/dL Creatinine 0.59 L (0.66-1.25) mg/dL Est GFR (CKD-EPI)AfAm >90 (>60 ml/min/1.73 sqM) Est GFR (CKD-EPI)NonAf >90 (>60 ml/min/1.73 sqM) Glucose 131 H (74-99) mg/dL Plasma Lactic Acid Son (0.7-2.0) mmol/L Calcium 8.7 (8.4-10.2) mg/dL Magnesium 1.7 (1.6-2.3) mg/dL Total Bilirubin 0.8 (0.2-1.3) mg/dL AST 26 (17-59) U/L ALT 22 (4-49) U/L Alkaline Phosphatase 80 (38-126) U/L Troponin I <0.012 (0.000-0.034) ng/mL NT-Pro-B Natriuret Pep 714 pg/mL Total Protein 6.2 L (6.3-8.2) g/dL Albumin 3.6 (3.5-5.0) g/dL Influenza Type A (PCR) (Not Detectd) Influenza Type B (PCR) (Not Detectd) RSV (PCR) (Not Detectd) SARS-CoV-2 (PCR) (Not Detectd) 10/23/23 10/23/23 10/23/23 Range/Units 18:46 18:58 18:58 WBC (3.8-10.6) k/uL RBC (4.30-5.90) m/uL Hgb (13.0-17.5) gm/dL Hct (39.0-53.0) % MCV (80.0-100.0) fL MCH (25.0-35.0) pg MCHC (31.0-37.0) g/dL RDW (11.5-15.5) % Plt Count (150-450) k/uL MPV Neutrophils % % Lymphocytes % % Monocytes % % Eosinophils % % Basophils % % Neutrophils # (1.3-7.7) k/uL Lymphocytes # (1.0-4.8) k/uL Monocytes # (0-1.0) k/uL Eosinophils # (0-0.7) k/uL Basophils # (0-0.2) k/uL PT 11.5 (10.0-12.5) sec INR 1.1 (<1.2) APTT 25.4 (22.0-30.0) sec Sodium (137-145) mmol/L Potassium (3.5-5.1) mmol/L Chloride (98-107) mmol/L Carbon Dioxide (22-30) mmol/L Anion Gap mmol/L BUN (9-20) mg/dL Creatinine (0.66-1.25) mg/dL Est GFR (CKD-EPI)AfAm (>60 ml/min/1.73 sqM) Est GFR (CKD-EPI)NonAf (>60 ml/min/1.73 sqM) Glucose (74-99) mg/dL Plasma Lactic Acid Son 1.2 (0.7-2.0) mmol/L Calcium (8.4-10.2) mg/dL Magnesium (1.6-2.3) mg/dL Total Bilirubin (0.2-1.3) mg/dL AST (17-59) U/L ALT (4-49) U/L Alkaline Phosphatase (38-126) U/L Troponin I (0.000-0.034) ng/mL NT-Pro-B Natriuret Pep pg/mL Total Protein (6.3-8.2) g/dL Albumin (3.5-5.0) g/dL Influenza Type A (PCR) Not Detected (Not Detectd) Influenza Type B (PCR) Not Detected (Not Detectd) RSV (PCR) Detected A (Not Detectd) SARS-CoV-2 (PCR) Not Detected (Not Detectd) Disposition <Roxie Bella - Last Filed: 10/23/23 18:33> Is patient prescribed a controlled substance at d/c from ED?: No Time of Disposition: 19:45 Decision to Admit Reason: Admit from EC Decision Date: 10/23/23 Decision Time: 19:45 <Gabby Roberson - Last Filed: 10/24/23 00:48> Clinical Impression: Acute exacerbation of chronic obstructive pulmonary disease, RSV (respiratory syncytial virus infection), Leukocytosis, BiPAP (biphasic positive airway pressure) dependence Disposition: ADMITTED IP TO THIS HOSP Condition: Serious
[2023-10-23] MEDS ORDERED: methylPREDNISolone SOD SUCCI 125 MG/2 ML VIAL IV STA (18:49)
[2023-10-23] MEDS ORDERED: IPRATROPIUM-ALBUTEROL 3 ML NEB INHALATION STA (18:49)
[2023-10-23] MEDS ORDERED: MAGNESIUM SULFATE-D5W PMX 1 GM in DEXTROSE/WATER 1 100ML.BAG IVPB STA (18:49)
[2023-10-23] MEDS ORDERED: ALBUTEROL HFA INHALER INHALATION STA (18:49)
[2023-10-23 19:21] LABS: ALT 22 U/L (4-49); AST 26 U/L (17-59); African American GFR (CKD) >90 (>60 ml/min/1.73 sqM); Albumin 3.6 g/dL (3.5-5.0); Alkaline Phosphatase 80 U/L (38-126); Anion Gap 14 mmol/L; Blood Urea Nitrogen 18 mg/dL (9-20); Calcium 8.7 mg/dL (8.4-10.2); Carbon Dioxide 26 mmol/L (22-30); Chloride 94 mmol/L (98-107); Glucose 131 mg/dL (74-99); Magnesium 1.7 mg/dL (1.6-2.3); Non-African American GFR(CKD) >90 (>60 ml/min/1.73 sqM); Potassium 3.6 mmol/L (3.5-5.1); Sodium 134 mmol/L (137-145); Total Bilirubin 0.8 mg/dL (0.2-1.3); Total Protein 6.2 g/dL (6.3-8.2)
[2023-10-23 19:29] LABS: NT-Pro-B-Type Natriuretic Pept 714 pg/mL
[2023-10-23 19:33] LABS: Basophils # (A) 0.1 k/uL (0-0.2); Basophils % (A) 0 %; Eosinophils # (A) 0.1 k/uL (0-0.7); Eosinophils % (A) 1 %; HCT 41.5 % (39.0-53.0); HGB 13.6 gm/dL (13.0-17.5); Lymphocytes # (A) 0.3 k/uL (1.0-4.8); Lymphocytes % (A) 1 %; MCH 28.2 pg (25.0-35.0); MCHC 32.7 g/dL (31.0-37.0); MCV 86.3 fL (80.0-100.0); Mean Platelet Volume 7.3; Monocytes # (A) 0.7 k/uL (0-1.0); Monocytes % (A) 3 %; Neutrophils # (A) 19.9 k/uL (1.3-7.7); Neutrophils % (A) 94 %; Platelet Count 254 k/uL (150-450); RBC 4.81 m/uL (4.30-5.90); WBC 21.2 k/uL (3.8-10.6)
[2023-10-23 19:38] LABS: INR 1.1 (<1.2); Partial Thromboplastin Time 25.4 sec (22.0-30.0); Prothrombin Time 11.5 sec (10.0-12.5)
--- NOTE | 2023-10-23 19:58 | XR ---
EXAMINATION TYPE: XR chest 1V DATE OF EXAM: 10/23/2023 7:50 PM CLINICAL INDICATION:Male, 68 years old with history of cough; [facility] COMPARISON: Chest radiograph 08/06/2023 TECHNIQUE: XR chest 1V Frontal view of the chest. FINDINGS: Lungs/Pleura: Hazy airspace opacities are noted within the left lower lung. No evidence of pleural ef fusion or pneumothorax. Pulmonary vascularity: Unremarkable. Heart/mediastinum: Cardiomediastinal silhouette is unremarkable. Musculoskeletal: No acute osseous pathology. Right shoulder reverse arthroplasty. IMPRESSION: Left basilar airspace disease.
[2023-10-23] MEDS ORDERED: AZITHROMYCIN 500 MG in SODIUM CHLORIDE 0.9% 250 ML IVPB STA (19:59)
[2023-10-23] MEDS ORDERED: PNEUMONIA PROTOCOL UTILIZED 1 EACH MISC PO PRN (19:59)
[2023-10-23] MEDS ORDERED: IPRATROPIUM-ALBUTEROL 3 ML NEB INHALATION PRN (19:59)
[2023-10-23] MEDS ORDERED: CYCLOBENZAPRINE 10 MG TAB PO PRN (21:13)
[2023-10-23] MEDS ORDERED: NON FORMULARY DRUG (Omeprazole [Omeprazole] 40 MG Capsule.Dr) PO SCH (21:15)
[2023-10-23] MEDS: cloNIDine HCL 0.1 MG TAB PO SCH (21:27)
[2023-10-23] MEDS: PANTOPRAZOLE 40 MG TABLET PO SCH (21:27)
[2023-10-23] MEDS: BACLOFEN 10 MG TAB PO SCH (21:27)
[2023-10-23] MEDS ORDERED: CALCIUM CARBONATE 500 MG CHEWABLE PO PRN (21:35)
--- NOTE | 2023-10-24 04:54 | P.CNPUL ---
History of Present Illness Consult date: 10/24/23 Requesting physician: Gabby Roberson Reason for consult: COPD, pneumonia Chief complaint: Shortness of breath 4 days History of present illness: I am seeing this patient in consultation today 10/24/2023 in the emergency room, as the patient has been experiencing progressively worsening shortness of breath over the last 4 days. Patient is a 68-year-old white male with past medical history significant for severe COPD, prostate cancer status post prostatectomy, esophageal CA with previous partial esophagectomy and gastric pull. Patient does follow with Dr. Mckenzie in the pulmonary office for management of his severe chronic obstructive pulmonary disease. He normally utilizes a combination of Trelegy Ellipta inhaler, albuterol HFA or nebulizer as needed. Prednisone dependent on 10 mg every day. Most recent PFT has a FEV1 48% of predicted. Over the last 4 days the patient has had progressively worsening shortness of breath. This is accompanied with a productive cough with yellow to green sputum, intermittent fevers, chest tightness. Endorses chest pain only with coughing or deep breathing. Apparently his grandchildren have been sick. He did go into the pulmonary office for a Depo-Medrol injection on October 22, and unfortunately has not felt any better. He was told to come to the emergency room. On arrival, the patient was found to be in some respiratory distress. He was placed on BiPAP. Current settings are 16/8 and FiO2 40%. Generating adequate tidal volumes of 400-500. Respiratory rate is in the 20s. No signs of CO2 narcosis. He did test positive for RSV. Chest x-ray on arrival showed a concerning left basilar infiltrate. Procalcitonin level 0.49. CBC shows leukocytosis with left shift. CBC has a WBC count of 21.2, hemoglobin 13.6, hematocrit 41.5, platelets 254. BMP has a sodium of 134, potassium 3.6, chloride 94, serum bicarb 26, BUN 18, creatinine 0.59, glucose 131. NT proBNP is 714. Troponin less than 0.012. ECG shows sinus tachycardia with RBB. Right axis deviation. No co-infection with influenza or COVID-19. Patient has been started on empiric antibiotics in the form of azithromycin and Rocephin. Currently afebrile. Vital signs stable. Review of Systems REVIEW OF SYSTEMS: CONSTITUTIONAL: Denies any recent significant weight loss or weight gain. EYES: Denies change in vision. EARS, NOSE, MOUTH, THROAT: Denies headaches, denies sore throat. CARDIOVASCULAR: Denies chest pain, palpitations or syncopal episodes. Admits chronic lower extremity swelling RESPIRATORY: See HPI. GASTROINTESTINAL: Denies change in appetite, abdominal pain, nausea and vomiting, or diarrhea GENITOURINARY: Denies hematuria, denies infections. MUSKULOSKELETAL: Denies pain, denies swelling. INTEGUMENTARY: Denies rash, denies eczema. NEUROLOGICAL: Denies recent memory loss, no recent seizure activity. PSYCHIATRIC: Denies anxiety, denies depression. HEMATOLOGIC/LYMPHATIC: Denies anemia, denies enlarged lymph node Past Medical History Past Medical History: Cancer, COPD, GERD/Reflux, Hypertension Additional Past Medical History / Comment(s): Neuropathy, hx esophageal cancer treated with surgery - 2008,. prostate cancer current 10/2023 History of Any Multi-Drug Resistant Organisms: None Reported Past Surgical History: Appendectomy, Hernia Repair, Joint Replacement, Orthopedic Surgery Additional Past Surgical History / Comment(s): Bilateral elbow, bilateral wrist carpal tunnel, bilateral rotator cuff surgeryx3 , right knee arthroscopy, right knee replacement, surgery for esophageal cancer (removed part of esophagus and removed part of stomach making it into carrot shape per patient), hernia repair X4. robotic prostatectomy with bilateral stent placement and pelvic lymph node removal 08/11/20 Past Anesthesia/Blood Transfusion Reactions: Previous Problems w/ Anesthesia Additional Past Anesthesia/Blood Transfusion Reaction / Comment(s): can not lay flat- "stomach acid will come out my nose" Past Psychological History: Anxiety, Depression Additional Psychological History / Comment(s): Pt lives at home with his . Pt is normally independent. Smoking Status: Former smoker Past Alcohol Use History: None Reported Additional Past Alcohol Use History / Comment(s): Patient was a smoker one pack per day for 10 years and quit ago 32 years ago. He lives at home with his . He is retired [employer] with exposure to asbestos. There is one cat, a Great Power and a Mountain terrier in the home. Patient enjoys camping, bicycling, gardening and yard work. No recent travel outside of [place]. The patient has been camping in [place]. Past Drug Use History: None Reported - Past Family History Father Family Medical History: Cancer Additional Family Medical History / Comment(s): COLON Cancer. Mother Family Medical History: Cancer, Deep Vein Thrombosis (DVT) Additional Family Medical History / Comment(s): Brain aneurysm. Medications and Allergies Home Medications Medication Instructions Recorded Confirmed Type Omeprazole 40 mg PO HS 04/26/17 10/23/23 History cloNIDine HCL [Catapres] 0.1 mg PO BID 10/02/18 10/23/23 History Losartan Potassium 100 mg PO DAILY 03/20/19 10/23/23 History Omeprazole 20 mg PO BID 06/08/19 10/23/23 History Fluticasone/Umeclidin/Vilanter 1 puff INHALATION RT-DAILY 05/25/21 10/23/23 History [Trelegy Ellipta 200-62.5-25] Baclofen [Lioresal] 20 mg PO HS 07/04/22 10/23/23 History DULoxetine HCL [Cymbalta] 60 mg PO DAILY 07/04/22 10/23/23 History rOPINIRole HCL [Requip] 2 mg PO BID 07/04/22 10/23/23 History Albuterol Sulfate [Albuterol 2 puff INHALATION RT-QID 10/23/23 10/23/23 History Sulfate Hfa] Cyclobenzaprine [Flexeril] 10 mg PO TID PRN 10/23/23 10/23/23 History Ipratropium-Albuterol Nebulize 3 ml INHALATION RT-QID PRN 10/23/23 10/23/23 History [Duoneb 0.5 mg-3 mg/3 ml Soln] Magnesium Oxide [Mag-Ox] 250 mg PO DAILY 10/23/23 10/23/23 History predniSONE 10 mg PO DAILY 10/23/23 10/23/23 History Allergies Allergy/AdvReac Type Severity Reaction Status Date / Time No Known Allergies Allergy Verified 10/23/23 19:19 Physical Exam Vitals: Vital Signs Temp Pulse Pulse Resp BP BP Pulse Ox 10/24/23 04:00 92 130/80 95 10/24/23 03:13 10/24/23 00:08 93 10/24/23 00:00 96 22 138/85 95 10/23/23 23:55 96 10/23/23 20:30 102 H 22 138/80 98 10/23/23 19:42 107 H 10/23/23 19:41 10/23/23 19:33 107 H 10/23/23 19:00 10/23/23 18:53 24 10/23/23 18:34 98.7 F 119 H 20 88 L FiO2 10/24/23 04:00 40 10/24/23 03:13 40 10/24/23 00:08 10/24/23 00:00 10/23/23 23:55 40 10/23/23 20:30 10/23/23 19:42 10/23/23 19:41 40 10/23/23 19:33 10/23/23 19:00 40 10/23/23 18:53 10/23/23 18:34 Intake and Output 10/23/23 10/23/23 10/24/23 14:59 22:59 06:59 Other: Voiding Method Urinal Weight 99.79 kg GENERAL EXAM: Alert, 68-year-old white male, obese, on BiPAP, fairly comf ortable. No respiratory distress. HEAD: Normocephalic and atraumatic EYES: Normal reaction of pupils, equal size. NOSE: Clear with pink turbinates. THROAT: No erythema or exudates. NECK: No masses, no JVD. CHEST: No chest wall deformity. LUNGS: Equal air entry with diffuse rhonchi and wheezes throughout. On BiPAP. No conversational dyspnea or accessory muscle use.. CVS: S1 and S2 normal with no audible murmur, regular rhythm. No extra heart sounds ABDOMEN: No hepatosplenomegaly, active bowel sounds, no guarding or rigidity. SPINE: No scoliosis or deformity SKIN: No rashes CENTRAL NERVOUS SYSTEM: No focal deficits, tone is normal in all 4 extremities. EXTREMITIES: There is bilateral lower extremity 1-2+ pitting edema. No clubbing, or cyanosis. Peripheral pulses are intact. Results - Laboratory Findings CBC and BMP: 10/23/23 18:46 10/23/23 18:46 PT/INR, D-dimer PT 11.5 sec (10.0-12.5) 10/23/23 18:58 INR 1.1 (<1.2) 10/23/23 18:58 Abnormal lab findings: Abnormal Labs 10/23/23 10/23/23 10/23/23 18:46 18:46 18:46 WBC 21.2 H Neutrophils # 19.9 H Lymphocytes # 0.3 L Sodium 134 L Chloride 94 L Creatinine 0.59 L Glucose 131 H Total Protein 6.2 L Procalcitonin RSV (PCR) Detected A 10/23/23 22:36 WBC Neutrophils # Lymphocytes # Sodium Chloride Creatinine Glucose Total Protein Procalcitonin 0.49 H RSV (PCR) - Diagnostic Findings Chest x-ray: image reviewed Assessment and Plan Assessment: Acute hypoxemic respiratory failure, currently on BiPAP, secondary to acute COPD exacerbation. Patient did test positive for RSV, there are concerns for superimposed left lower lobe pneumonia, possibly bacterial. Chest x-ray shows a new left lower lobe infiltrate. Acute RSV infection Leukocytosis, with left shift Severe chronic obstructive pulmonary disease Benign essential hypertension Former tobacco dependence History of prostate cancer, status post prostatectomy History of esophageal cancer with history of partial esophagectomy and gastric pull Obesity, BMI of 31.6 kg/m Plan: Patient's medications, labs, chest x-ray reviewed. Continue on BiPAP support for now. With current settings of 16/8 and FiO2 40%. He appears comfortable. No signs of CO2 process. Continue empiric antibiotics in the form of azithromycin and Rocephin. Procalcitonin level was elevated at 0.49. Blood cultures and sputum culture are pending. Continue bronchodilators, budesonide inhalation, formoterol inhalation, and IV Solu-Medrol. We will continue to follow. I have personally seen and examined the patient, performed the documentation and the assessment and plan as written. Number of minutes spent on the visit:20 Time with Patient: Greater than 30
[2023-10-24] MEDS: methylPREDNISolone SOD SUCCI 125 MG/2 ML VIAL IV SCH ×4 (05:40→23:11)
[2023-10-24] MEDS: PANTOPRAZOLE 40 MG TABLET PO SCH (07:22)
[2023-10-24] MEDS ORDERED: SYMBICORT 80-4.5 MCG INHALER INHALATION SCH (08:00)
[2023-10-24] MEDS ORDERED: methylPREDNISolone SOD SUCCI 40 MG/ML 1 ML VIAL IV SCH (08:00)
[2023-10-24] MEDS ORDERED: IPRATROPIUM 0.5 MG/2.5 ML NEBU INHALATION SCH (08:00)
--- NOTE | 2023-10-24 08:16 | XR ---
EXAMINATION TYPE: XR chest 1V portable DATE OF EXAM: 10/24/2023 5:05 AM CLINICAL INDICATION:Male, 68 years old with history of pneumonia; [facility] COMPARISON: Chest radiographs from 10/23/2023. TECHNIQUE: XR chest 1V portable Frontal view of the chest. FINDINGS: Lungs/Pleura: Multifocal airspace opacities. No evidence of pneumothorax or pleural effusion. Pulmonary vascularity: Unremarkable. Heart/mediastinum: Cardiomediastinal silhouette is unremarkable. Musculoskeletal: No acute osseous pathology. Other findings: None IMPRESSION: Bilateral airspace opacities concerning for pneumonia.
[2023-10-24] MEDS: BUDESONIDE 1 MG/2 ML NEBU INHALATION SCH ×2 (08:47→19:38)
[2023-10-24] MEDS: IPRATROPIUM-ALBUTEROL 3 ML NEB INHALATION SCH ×4 (08:47→19:38)
[2023-10-24] MEDS: FORMOTEROL FUMARATE 20 MCG/2 ML NEBU INHALATION SCH ×2 (08:47→19:38)
[2023-10-24] MEDS: cloNIDine HCL 0.1 MG TAB PO SCH ×2 (09:28→20:33)
[2023-10-24] MEDS: LOSARTAN 50 MG TAB PO SCH (09:28)
[2023-10-24] MEDS: MAGNESIUM OXIDE 400 MG TAB PO SCH (09:28)
[2023-10-24] MEDS: DULoxetine HCL 60 MG CAPSULE.DR PO SCH (09:28)
[2023-10-24 20:29] LABS: Glucose,Whole Blood 149 mg/dL (70-110)
[2023-10-24] MEDS: INSULIN ASPART (NovoLOG) 100 UNIT/ML VIAL SQ SCH (20:32)
[2023-10-24] MEDS: BACLOFEN 10 MG TAB PO SCH (20:33)
[2023-10-24] MEDS: AZITHROMYCIN 500 MG TAB PO SCH (20:33)
[2023-10-25] MEDS: methylPREDNISolone SOD SUCCI 125 MG/2 ML VIAL IV SCH ×4 (04:58→23:30)
[2023-10-25 06:12] LABS: Glucose,Whole Blood 124 mg/dL (70-110)
[2023-10-25] MEDS: INSULIN ASPART (NovoLOG) 100 UNIT/ML VIAL SQ SCH ×4 (06:13→20:26)
[2023-10-25] MEDS: PANTOPRAZOLE 40 MG TABLET PO SCH (06:17)
[2023-10-25] MEDS: IPRATROPIUM-ALBUTEROL 3 ML NEB INHALATION SCH ×4 (09:07→22:06)
[2023-10-25] MEDS: FORMOTEROL FUMARATE 20 MCG/2 ML NEBU INHALATION SCH ×2 (09:07→22:06)
[2023-10-25] MEDS: BUDESONIDE 1 MG/2 ML NEBU INHALATION SCH ×2 (09:07→22:06)
[2023-10-25] MEDS: LOSARTAN 50 MG TAB PO SCH (09:09)
[2023-10-25] MEDS: DULoxetine HCL 60 MG CAPSULE.DR PO SCH (09:09)
[2023-10-25] MEDS: MAGNESIUM OXIDE 400 MG TAB PO SCH (09:09)
[2023-10-25] MEDS: cloNIDine HCL 0.1 MG TAB PO SCH ×2 (09:09→20:25)
[2023-10-25 11:34] LABS: Glucose,Whole Blood 145 mg/dL (70-110)
--- NOTE | 2023-10-25 16:20 | P.PN ---
Subjective Progress Note Date: 10/25/23 I am seeing this patient in consultation today 10/24/2023 in the emergency room, as the patient has been experiencing progressively worsening shortness of breath over the last 4 days. Patient is a 68-year-old white male with past medical history significant for severe COPD, prostate cancer status post prostatectomy, esophageal CA with previous partial esophagectomy and gastric pull. Patient does follow with Dr. Mckenzie in the pulmonary office for management of his severe chronic obstructive pulmonary disease. He normally utilizes a combination of Trelegy Ellipta inhaler, albuterol HFA or nebulizer as needed. Prednisone dependent on 10 mg every day. Most recent PFT has a FEV1 48% of predicted. Over the last 4 days the patient has had progressively worsening shortness of breath. This is accompanied with a productive cough with yellow to green sputum, intermittent fevers, chest tightness. Endorses chest pain only with coughing or deep breathing. Apparently his grandchildren have been sick. He did go into the pulmonary office for a Depo-Medrol injection on October 22, and unfortunately has not felt any better. He was told to come to the emergency room. On arrival, the patient was found to be in some respiratory distress. He was placed on BiPAP. Current settings are 16/8 and FiO2 40%. Generating adequate tidal volumes of 400-500. Respiratory rate is in the 20s. No signs of CO2 narcosis. He did test positive for RSV. Chest x-ray on arrival showed a concerning left basilar infiltrate. Procalcitonin level 0.49. CBC shows leukocytosis with left shift. CBC has a WBC count of 21.2, hemoglobin 13.6, hematocrit 41.5, platelets 254. BMP has a sodium of 134, potassium 3.6, chloride 94, serum bicarb 26, BUN 18, creatinine 0.59, glucose 131. NT proBNP is 714. Troponin less than 0.012. ECG shows sinus tachycardia with RBB. Right axis deviation. No co-infection with influenza or COVID-19. Patient has been started on empiric antibiotics in the form of azithromycin and Rocephin. Currently afebrile. Vital signs stable. The patient is seen today 10/25/2019 for follow-up on the selective care unit. He is currently sitting up at the bedside. Awake and alert in no acute distress. He is feeling better today compared to yesterday. He is maintaining good O2 saturation in the 90s on 4 L/m per nasal cannula. He did utilize BiPAP 16/8 and 40% FiO2. He is still dyspneic with minimal exertion. Dyspneic with conversation. Still broncho spastic and wheezing. Blood and sputum cultures pending. Urine legionella antigen was negative. Glucose 124. He is positive for RSV. Chest x-ray does reveal bilateral airspace opacities concerning for pneumonia. Pro Calcitonin was 0.49. He remains on DuoNeb inhalations, Pulmicort and Perforomist inhalations, Solu-Medrol. Antibiotics in the form of ceftriaxone and azithromycin. Objective - Vital Signs Vital signs: Vital Signs Temp 97.9 F 10/25/23 11:49 Pulse 98 10/25/23 12:21 Resp 16 10/25/23 11:49 BP 125/67 10/25/23 11:49 Pulse Ox 94 L 10/25/23 11:49 FiO2 40 10/24/23 08:35 Intake & Output 10/24/23 10/25/23 10/25/23 18:59 06:59 18:59 Intake Total 180 420 Output Total 400 Balance 180 -400 420 Intake: Oral 180 420 Output: Urine 400 Other: Voiding Method Toilet Toilet # Voids 0 1 - Exam GENERAL EXAM: Alert, 68-year-old male, on 4 liters nasal cannula, fairly comfortable. No respiratory distress. HEAD: Normocephalic and atraumatic EYES: Normal reaction of pupils, equal size. NOSE: Clear with pink turbinates. THROAT: No erythema or exudates. NECK: No masses, no JVD. CHEST: No chest wall deformity. LUNGS: Equal air entry with diffuse rhonchi and wheezes throughout. CVS: S1 and S2 normal with no audible murmur, regular rhythm. No extra heart sounds ABDOMEN: No hepatosplenomegaly, active bowel sounds, no guarding or rigidity. SPINE: No scoliosis or deformity SKIN: No rashes CENTRAL NERVOUS SYSTEM: No focal deficits, tone is normal in all 4 extremities. EXTREMITIES: There is bilateral lower extremity 1-2+ pitting edema. No clubbing, or cyanosis. Peripheral pulses are intact. - Labs CBC & Chem 7: 10/23/23 18:46 10/23/23 18:46 Labs: Abnormal Lab Results - Last 24 Hours (Table) 10/24/23 10/25/23 10/25/23 Range/Units 20:22 06:10 11:32 POC Glucose (mg/dL) 149 H 124 H 145 H (70-110) mg/dL Microbiology - Last 24 Hours (Table) 10/24/23 02:00 Gram Stain - Preliminary Sputum 10/23/23 20:04 Blood Culture - Preliminary Blood 10/23/23 19:59 Blood Culture - Preliminary Blood Assessment and Plan Assessment: Acute hypoxemic respiratory failure secondary to acute COPD exacerbation. Patient did test positive for RSV, there are concerns for superimposed left lower lobe pneumonia, possibly bacterial. ProCalcitonin 0.49. Remains on ceftriaxone and azithromycin. Chest x-ray shows a new left lower lobe infiltrate. Acute RSV infection Leukocytosis, with left shift Severe chronic obstructive pulmonary disease Benign essential hypertension Former tobacco dependence History of prostate cancer, status post prostatectomy History of esophageal cancer with history of partial esophagectomy and gastric pull Obesity, BMI of 31.6 kg/m Plan: The patient was seen and evaluated Chest x-ray, labs and medications reviewed Continue bronchodilators, steroids Continue antibiotics Titrate down the FiO2 as tolerated Increase his activity as tolerated We will continue to follow I have personally seen and examined the patient, performed the documentation and the assessment and plan as written. Number of minutes spent on the visit: 10.
[2023-10-25 16:33] LABS: Glucose,Whole Blood 151 mg/dL (70-110)
[2023-10-25 20:17] LABS: Glucose,Whole Blood 165 mg/dL (70-110)
[2023-10-25] MEDS: AZITHROMYCIN 500 MG TAB PO SCH (20:25)
[2023-10-25] MEDS: BACLOFEN 10 MG TAB PO SCH (20:25)
[2023-10-26] MEDS: methylPREDNISolone SOD SUCCI 125 MG/2 ML VIAL IV SCH ×4 (04:55→23:27)
[2023-10-26 06:09] LABS: Glucose,Whole Blood 170 mg/dL (70-110)
[2023-10-26] MEDS: PANTOPRAZOLE 40 MG TABLET PO SCH (06:24)
[2023-10-26] MEDS: INSULIN ASPART (NovoLOG) 100 UNIT/ML VIAL SQ SCH ×4 (06:24→20:37)
[2023-10-26] MEDS: BUDESONIDE 1 MG/2 ML NEBU INHALATION SCH ×2 (08:14→19:17)
[2023-10-26] MEDS: IPRATROPIUM-ALBUTEROL 3 ML NEB INHALATION SCH ×4 (08:14→19:17)
[2023-10-26] MEDS: FORMOTEROL FUMARATE 20 MCG/2 ML NEBU INHALATION SCH ×2 (08:14→19:32)
[2023-10-26] MEDS: LOSARTAN 50 MG TAB PO SCH (08:25)
[2023-10-26] MEDS: cloNIDine HCL 0.1 MG TAB PO SCH ×2 (08:25→19:37)
[2023-10-26] MEDS: DULoxetine HCL 60 MG CAPSULE.DR PO SCH (08:25)
[2023-10-26] MEDS: MAGNESIUM OXIDE 400 MG TAB PO SCH (08:25)
[2023-10-26 11:26] LABS: Glucose,Whole Blood 160 mg/dL (70-110)
--- NOTE | 2023-10-26 14:21 | P.PN ---
Subjective Progress Note Date: 10/26/23 Principal diagnosis: Acute hypoxic respiratory failure secondary to acute exacerbation of COPD and RSV tracheobronchitis. Possible left lower lobe bacterial pneumonia with elevated pro calcitonin level I am seeing this patient in consultation today 10/24/2023 in the emergency room, as the patient has been experiencing progressively worsening shortness of breath over the last 4 days. Patient is a 68-year-old white male with past medical history significant for severe COPD, prostate cancer status post prostatectomy, esophageal CA with previous partial esophagectomy and gastric pull. Patient does follow with Dr. Mckenzie in the pulmonary office for management of his sev ere chronic obstructive pulmonary disease. He normally utilizes a combination of Trelegy Ellipta inhaler, albuterol HFA or nebulizer as needed. Prednisone dependent on 10 mg every day. Most recent PFT has a FEV1 48% of predicted. Over the last 4 days the patient has had progressively worsening shortness of breath. This is accompanied with a productive cough with yellow to green sputum, intermittent fevers, chest tightness. Endorses chest pain only with coughing or deep breathing. Apparently his grandchildren have been sick. He did go into the pulmonary office for a Depo-Medrol injection on October 22, and unfortunately has not felt any better. He was told to come to the emergency room. On arrival, the patient was found to be in some respiratory distress. He was placed on BiPAP. Current settings are 16/8 and FiO2 40%. Generating adequate tidal volumes of 400-500. Respiratory rate is in the 20s. No signs of CO2 narcosis. He did test positive for RSV. Chest x-ray on arrival showed a concerning left basilar infiltrate. Procalcitonin level 0.49. CBC shows leukocytosis with left shift. CBC has a WBC count of 21.2, hemoglobin 13.6, hematocrit 41.5, platelets 254. BMP has a sodium of 134, potassium 3.6, chloride 94, serum bicarb 26, BUN 18, creatinine 0.59, glucose 131. NT proBNP is 714. Troponin less than 0.012. ECG shows sinus tachycardia with RBB. Right axis deviation. No co-infection with influenza or COVID-19. Patient has been started on empiric antibiotics in the form of azithromycin and Rocephin. Currently afebrile. Vital signs stable. The patient is seen today 10/25/2023 for follow-up on the selective care unit. He is currently sitting up at the bedside. Awake and alert in no acute distress. He is feeling better today compared to yesterday. He is maintaining good O2 saturation in the 90s on 4 L/m per nasal cannula. He did utilize BiPAP 16/8 and 40% FiO2. He is still dyspneic with minimal exertion. Dyspneic with conversation. Still broncho spastic and wheezing. Blood and sputum cultures pending. Urine legionella antigen was negative. Glucose 124. He is positive for RSV. Chest x-ray does reveal bilateral airspace opacities concerning for pneumonia. Pro Calcitonin was 0.49. He remains on DuoNeb inhalations, Pulmicort and Perforomist inhalations, Solu-Medrol. Antibiotics in the form of ceftriaxone and azithromycin. Patient was reevaluated today on 10/26/23 patient seems to be doing well today, feeling much better compared to how he felt when he came in. On 4 L nasal cannula with O2 sat 75%, nonetheless the patient has intermittent cough and wheezing, improved but not completely resolved. No labs were drawn on this pa tient today. Chest x-ray from 10/24 clearly showed some improvement in his left lower lobe pneumonia and he has chronic changes at the right base Objective - Vital Signs Vital signs: Vital Signs Temp 98.2 F 10/26/23 12:00 Pulse 103 H 10/26/23 12:00 Resp 22 10/26/23 12:00 BP 159/77 10/26/23 12:00 Pulse Ox 95 10/26/23 12:00 FiO2 40 10/26/23 04:57 Intake & Output 10/25/23 10/26/23 10/26/23 18:59 06:59 18:59 Intake Total 660 680 Balance 660 680 Intake: Oral 660 680 Other: Voiding Method Toilet Toilet # Voids 2 1 - Exam Physical Exam: Revealed a 68-year-old white male in no distress on 4 L nasal cannula Head: Atraumatic, normocephalic HEENT:[Neck is supple.] [No neck masses.] [No thyromegaly.] [No JVD.] Chest: [Wheezing on forced expiratory maneuver fine crackles at the bases Cardiac Exam: [Normal S1 and S2, no S3 gallop, no murmur.] Abdomen: [Soft, nontender, no megaly, no rebound, no guarding, normal bowel sounds.] Extremities: [No clubbing, no edema, no cyanosis.] Neurological Exam: [No focal neurologic deficit.] Alert and oriented 3 Psychiatric: Normal mood affect and normal mental status examination. Skin: No rashes - Labs CBC & Chem 7: 10/23/23 18:46 10/23/23 18:46 Labs: Abnormal Lab Results - Last 24 Hours (Table) 10/25/23 10/25/23 10/26/23 Range/Units 16:31 20:15 06:08 POC Glucose (mg/dL) 151 H 165 H 170 H (70-110) mg/dL 10/26/23 Range/Units 11:25 POC Glucose (mg/dL) 160 H (70-110) mg/dL Microbiology - Last 24 Hours (Table) 10/24/23 02:00 Gram Stain - Final Sputum Sputum Culture - Final 10/23/23 20:04 Blood Culture - Preliminary Blood 10/23/23 19:59 Blood Culture - Preliminary Blood Assessment and Plan Assessment: Impression:Acute hypoxemic respiratory failure secondary to acute exacerbation of COPD, RSV tracheobronchitis, and strongly suspect bacterial pneumonia involving the left lower lobe with elevated pro calcitonin level Acute RSV infection Severe chronic obstructive pulmonary disease, with acute exacerbation Benign essential hypertension Former tobacco dependence History of prostate cancer, status post prostatectomy History of esophageal cancer with history of partial esophagectomy and gastric pull Obesity, BMI of 31.6 kg/m Recommendation: Continue present course of antibiotics, ceftriaxone, Continue bronchodilators, Continue Solu-Medrol, 60 mg IV push every 6 hours, We will continue to follow Time with Patient: Less than 30
--- NOTE | 2023-10-26 15:18 | P.PN ---
Subjective Progress Note Date: 10/26/23 Patient is a 68-year-old white male with past medical history significant for severe COPD, prostate cancer status post prostatectomy, esophageal CA with previous partial esophagectomy admitted as the patient has been experiencing progressively worsening shortness of breath over the last 4 days. 10/26. Dr. kee took over care from Dr. Robbins. Patient sitting upright in the bed. Still wheezing. Gets short of breath on exertion. Currently on 4 L of oxygen. REVIEW OF SYSTEMS: CONSTITUTIONAL: No fever, no malaise,. CARDIOVASCULAR: No chest pain, no palpitations, no syncope. PULMONARY: As mentioned above GASTROINTESTINAL: No diarrhea, no nausea, no vomiting, no abdominal pain. NEUROLOGICAL: No headaches, no weakness, PHYSICAL EXAMINATION: GENERAL: The patient is alert and oriented x3, not in any acute distress. Well developed, well nourished. HEENT: Pupils are round and equally reacting to light. EOMI. No scleral icterus. No conjunctival pallor. Normocephalic, atraumatic. No pharyngeal erythema. No thyromegaly. CARDIOVASCULAR: S1 and S2 present. No murmurs, rubs, or gallops. PULMONARY: Coarse breath some bilaterally, expiratory wheeze audible ABDOMEN: Soft, nontender, nondistended, normoactive bowel sounds. No palpable organomegaly. MUSCULOSKELETAL: No joint swelling or deformity. EXTREMITIES: No cyanosis, clubbing, or pedal edema. NEUROLOGICAL: Gross neurological examination did not reveal any focal deficits. SKIN: No rashes. Assessment and plan Acute hypoxemic respiratory failure acute COPD exacerbation. Bacterial pneumonia Acute RSV infection Leukocytosis, with left shift Severe chronic obstructive pulmonary disease Benign essential hypertension Former tobacco dependence History of prostate cancer, status post prostatectomy History of esophageal cancer with history of partial esophagectomy and gastric pull Obesity, BMI of 31.6 kg/m Monitor vital signs Monitor CBC Monitor CMP Continue telemetry monitoring Continue breathing treatments Continue IV Rocephin Continue IV Solu-Medrol Continue clonidine continue Requip for restless leg syndrome Pulmonary following Labs and medication were reviewed.. Continue same treatment. Continue with symptomatic treatment. Resume home medication. Monitor labs and vitals. DVT and GI prophylaxis. Further recommendations as per clinical course of the patient Dictation was produced using [employer] dictation software. please excuse any grammatical, word or spelling errors. Objective - Vital Signs Vital signs: Vital Signs Temp 98.2 F 10/26/23 12:00 Pulse 103 H 10/26/23 12:00 Resp 22 10/26/23 12:00 BP 159/77 10/26/23 12:00 Pulse Ox 95 10/26/23 12:00 FiO2 40 10/26/23 04:57 Intake & Output 10/25/23 10/26/23 10/26/23 18:59 06:59 18:59 Intake Total 660 680 Balance 660 680 Intake: Oral 660 680 Other: Voiding Method Toilet Toilet # Voids 2 1 - Labs CBC & Chem 7: 10/23/23 18:46 10/23/23 18:46 Labs: Abnormal Lab Results - Last 24 Hours (Table) 10/25/23 10/25/23 10/26/23 Range/Units 16:31 20:15 06:08 POC Glucose (mg/dL) 151 H 165 H 170 H (70-110) mg/dL 10/26/23 Range/Units 11:25 POC Glucose (mg/dL) 160 H (70-110) mg/dL Microbiology - Last 24 Hours (Table) 10/24/23 02:00 Gram Stain - Final Sputum Sputum Culture - Final 10/23/23 20:04 Blood Culture - Preliminary Blood 10/23/23 19:59 Blood Culture - Preliminary Blood
[2023-10-26 16:18] LABS: Glucose,Whole Blood 128 mg/dL (70-110)
[2023-10-26] MEDS: BACLOFEN 10 MG TAB PO SCH (19:37)
[2023-10-26 20:01] LABS: Glucose,Whole Blood 176 mg/dL (70-110)
[2023-10-27 05:57] LABS: Glucose,Whole Blood 191 mg/dL (70-110)
[2023-10-27] MEDS: INSULIN ASPART (NovoLOG) 100 UNIT/ML VIAL SQ SCH ×4 (06:09→20:43)
[2023-10-27] MEDS: methylPREDNISolone SOD SUCCI 125 MG/2 ML VIAL IV SCH ×4 (06:09→23:00)
[2023-10-27] MEDS: PANTOPRAZOLE 40 MG TABLET PO SCH (06:09)
[2023-10-27] MEDS: FORMOTEROL FUMARATE 20 MCG/2 ML NEBU INHALATION SCH ×2 (08:13→22:00)
[2023-10-27] MEDS: IPRATROPIUM-ALBUTEROL 3 ML NEB INHALATION SCH ×4 (08:13→22:00)
[2023-10-27] MEDS: BUDESONIDE 1 MG/2 ML NEBU INHALATION SCH ×2 (08:13→22:00)
[2023-10-27] MEDS: cloNIDine HCL 0.1 MG TAB PO SCH ×2 (08:31→20:40)
[2023-10-27] MEDS: MAGNESIUM OXIDE 400 MG TAB PO SCH (08:31)
[2023-10-27] MEDS: LOSARTAN 50 MG TAB PO SCH (08:31)
[2023-10-27] MEDS: DULoxetine HCL 60 MG CAPSULE.DR PO SCH (08:31)
[2023-10-27 09:31] LABS: Basophils % (A) 0 %; Eosinophils % (A) 0 %; HCT 35.7 % (39.0-53.0); HGB 11.4 gm/dL (13.0-17.5); Hypochromasia Moderate; Lymphocytes # (A) 0.2 k/uL (1.0-4.8); Lymphocytes % (A) 1 %; MCH 27.9 pg (25.0-35.0); MCHC 31.8 g/dL (31.0-37.0); MCV 87.8 fL (80.0-100.0); Mean Platelet Volume 7.9; Monocytes # (A) 0.4 k/uL (0-1.0); Monocytes % (A) 3 %; Neutrophils # (A) 14.8 k/uL (1.3-7.7); Neutrophils % (A) 95 %; Platelet Count 279 k/uL (150-450); RBC 4.07 m/uL (4.30-5.90); WBC 15.6 k/uL (3.8-10.6)
[2023-10-27 09:50] LABS: ALT 29 U/L (4-49); AST 31 U/L (17-59); African American GFR (CKD) >90 (>60 ml/min/1.73 sqM); Albumin 3.2 g/dL (3.5-5.0); Alkaline Phosphatase 60 U/L (38-126); Anion Gap 12 mmol/L; Blood Urea Nitrogen 32 mg/dL (9-20); Calcium 8.5 mg/dL (8.4-10.2); Carbon Dioxide 25 mmol/L (22-30); Chloride 101 mmol/L (98-107); Glucose 149 mg/dL (74-99); Non-African American GFR(CKD) >90 (>60 ml/min/1.73 sqM); Sodium 138 mmol/L (137-145); Total Bilirubin 0.4 mg/dL (0.2-1.3); Total Protein 5.8 g/dL (6.3-8.2)
[2023-10-27 09:51] LABS: Potassium 3.9 mmol/L (3.5-5.1)
[2023-10-27 12:00] LABS: Glucose,Whole Blood 207 mg/dL (70-110)
--- NOTE | 2023-10-27 13:43 | P.PN ---
Subjective Progress Note Date: 10/27/23 Principal diagnosis: Acute hypoxic respiratory failure secondary to acute exacerbation of COPD and RSV tracheobronchitis. Possible left lower lobe bacterial pneumonia with elevated pro calcitonin level I am seeing this patient in consultation today 10/24/2023 in the emergency room, as the patient has been experiencing progressively worsening shortness of breath over the last 4 days. Patient is a 68-year-old white male with past medical history significant for severe COPD, prostate cancer status post prostatectomy, esophageal CA with previous partial esophagectomy and gastric pull. Patient does follow with Dr. Mckenzie in the pulmonary office for management of his sev ere chronic obstructive pulmonary disease. He normally utilizes a combination of Trelegy Ellipta inhaler, albuterol HFA or nebulizer as needed. Prednisone dependent on 10 mg every day. Most recent PFT has a FEV1 48% of predicted. Over the last 4 days the patient has had progressively worsening shortness of breath. This is accompanied with a productive cough with yellow to green sputum, intermittent fevers, chest tightness. Endorses chest pain only with coughing or deep breathing. Apparently his grandchildren have been sick. He did go into the pulmonary office for a Depo-Medrol injection on October 22, and unfortunately has not felt any better. He was told to come to the emergency room. On arrival, the patient was found to be in some respiratory distress. He was placed on BiPAP. Current settings are 16/8 and FiO2 40%. Generating adequate tidal volumes of 400-500. Respiratory rate is in the 20s. No signs of CO2 narcosis. He did test positive for RSV. Chest x-ray on arrival showed a concerning left basilar infiltrate. Procalcitonin level 0.49. CBC shows leukocytosis with left shift. CBC has a WBC count of 21.2, hemoglobin 13.6, hematocrit 41.5, platelets 254. BMP has a sodium of 134, potassium 3.6, chloride 94, serum bicarb 26, BUN 18, creatinine 0.59, glucose 131. NT proBNP is 714. Troponin less than 0.012. ECG shows sinus tachycardia with RBB. Right axis deviation. No co-infection with influenza or COVID-19. Patient has been started on empiric antibiotics in the form of azithromycin and Rocephin. Currently afebrile. Vital signs stable. The patient is seen today 10/25/2023 for follow-up on the selective care unit. He is currently sitting up at the bedside. Awake and alert in no acute distress. He is feeling better today compared to yesterday. He is maintaining good O2 saturation in the 90s on 4 L/m per nasal cannula. He did utilize BiPAP 16/8 and 40% FiO2. He is still dyspneic with minimal exertion. Dyspneic with conversation. Still broncho spastic and wheezing. Blood and sputum cultures pending. Urine legionella antigen was negative. Glucose 124. He is positive for RSV. Chest x-ray does reveal bilateral airspace opacities concerning for pneumonia. Pro Calcitonin was 0.49. He remains on DuoNeb inhalations, Pulmicort and Perforomist inhalations, Solu-Medrol. Antibiotics in the form of ceftriaxone and azithromycin. Patient was reevaluated today on 10/26/23 patient seems to be doing well today, feeling much better compared to how he felt when he came in. On 4 L nasal cannula with O2 sat 75%, nonetheless the patient has intermittent cough and wheezing, improved but not completely resolved. No labs were drawn on this pa tient today. Chest x-ray from 10/24 clearly showed some improvement in his left lower lobe pneumonia and he has chronic changes at the right base Patient was reevaluated today on 10/27/2023 patient is improving but not back to baseline, continues to cough and wheeze. Remains on 4 L nasal cannula, O2 sats is 98%, continues to have elevated WBC count 15.6 hemoglobin 11.4 basic metabolic profile is normal and renal profile is normal, blood cultures remain negative so far, sputum cultures are nondiagnostic showed mostly normal respiratory destiny Objective - Vital Signs Vital signs: Vital Signs Temp 97.9 F 10/27/23 12:00 Pulse 101 H 10/27/23 12:00 Resp 18 10/27/23 12:00 BP 169/90 10/27/23 12:00 Pulse Ox 98 10/27/23 12:00 FiO2 40 10/27/23 04:35 Intake & Output 10/26/23 10/27/23 10/27/23 18:59 06:59 18:59 Intake Total 1708 1130 118 Balance 1708 1130 118 Intake: Intake, IV Titration 50 Amount cefTRIAXone 2 gm In 50 Sodium Chloride 0.9% 50 ml @ 100 mls/hr IVPB [facility] Rx#:[id number] Oral 1708 8777 118 Other: Voiding Method Toilet Toilet Toilet # Voids 1 - Exam Physical Exam: Revealed a 68-year-old white male in no distress on 4 L nasal cannula Head: Atraumatic, normocephalic HEENT:[Neck is supple.] [No neck masses.] [No thyromegaly.] [No JVD.] Chest: [Wheezing and rhonchi noted bilaterally Cardiac Exam: [Normal S1 and S2, no S3 gallop, no murmur.] Abdomen: [Soft, nontender, no megaly, no rebound, no guarding, normal bowel sounds.] Extremities: [No clubbing, no edema, no cyanosis.] Neurological Exam: [No focal neurologic deficit.] Alert and oriented 3 Psychiatric: Normal mood affect and normal mental status examination. Skin: No rashes - Labs CBC & Chem 7: 10/27/23 08:07 10/27/23 08:07 Labs: Abnormal Lab Results - Last 24 Hours (Table) 10/26/23 10/26/23 10/27/23 Range/Units 16:17 19:59 05:55 WBC (3.8-10.6) k/uL RBC (4.30-5.90) m/uL Hgb (13.0-17.5) gm/dL Hct (39.0-53.0) % Neutrophils # (1.3-7.7) k/uL Lymphocytes # (1.0-4.8) k/uL BUN (9-20) mg/dL Creatinine (0.66-1.25) mg/dL Glucose (74-99) mg/dL POC Glucose (mg/dL) 128 H 176 H 191 H (70-110) mg/dL Total Protein (6.3-8.2) g/dL Albumin (3.5-5.0) g/dL 10/27/23 10/27/23 10/27/23 Range/Units 08:07 08:07 11:59 WBC 15.6 H (3.8-10.6) k/uL RBC 4.07 L (4.30-5.90) m/uL Hgb 11.4 L (13.0-17.5) gm/dL Hct 35.7 L (39.0-53.0) % Neutrophils # 14.8 H (1.3-7.7) k/uL Lymphocytes # 0.2 L (1.0-4.8) k/uL BUN 32 H (9-20) mg/dL Creatinine 0.62 L (0.66-1.25) mg/dL Glucose 149 H (74-99) mg/dL POC Glucose (mg/dL) 207 H (70-110) mg/dL Total Protein 5.8 L (6.3-8.2) g/dL Albumin 3.2 L (3.5-5.0) g/dL Microbiology - Last 24 Hours (Table) 10/23/23 20:04 Blood Culture - Preliminary Blood 10/23/23 19:59 Blood Culture - Preliminary Blood 10/24/23 02:00 Gram Stain - Final Sputum Sputum Culture - Final Assessment and Plan Assessment: Impression:Acute hypoxemic respiratory failure secondary to acute exacerbation of COPD, RSV tracheobronchitis, and strongly suspect bacterial pneumonia involvi ng the left lower lobe with elevated pro calcitonin level Acute RSV infection Severe chronic obstructive pulmonary disease, with acute exacerbation Benign essential hypertension Former tobacco dependence History of prostate cancer, status post prostatectomy History of esophageal cancer with history of partial esophagectomy and gastric pull Obesity, BMI of 31.6 kg/m Recommendation: Continue present course of antibiotics, ceftriaxone, Continue bronchodilators, Continue Solu-Medrol, 60 mg IV push every 6 hours, Not ready for discharge planning. Remains quite symptomatic. We will continue to follow Time with Patient: Less than 30
--- NOTE | 2023-10-27 15:57 | P.PN ---
Subjective Progress Note Date: 10/27/23 Patient is a 68-year-old white male with past medical history significant for severe COPD, prostate cancer status post prostatectomy, esophageal CA with previous partial esophagectomy admitted as the patient has been experiencing progressively worsening shortness of breath over the last 4 days. 10/26. Dr. kee took over care from Dr. Robbins. Patient sitting upright in the bed. Still wheezing. Gets short of breath on exertion. Currently on 4 L of oxygen. 10/27. Patient seen and examined. Continues to complain of shortness of breath at rest as well as exertion. REVIEW OF SYSTEMS: CONSTITUTIONAL: No fever, no malaise,. CARDIOVASCULAR: No chest pain, no palpitations, no syncope. PULMONARY: As mentioned above GASTROINTESTINAL: No diarrhea, no nausea, no vomiting, no abdominal pain. NEUROLOGICAL: No headaches, no weakness, PHYSICAL EXAMINATION: GENERAL: The patient is alert and oriented x3, not in any acute distress. Well developed, well nourished. HEENT: Pupils are round and equally reacting to light. EOMI. No scleral icterus. No conjunctival pallor. Normocephalic, atraumatic. No pharyngeal erythema. No thyromegaly. CARDIOVASCULAR: S1 and S2 present. No murmurs, rubs, or gallops. PULMONARY: Coarse breath some bilaterally, no wheeze audible, no crackles ABDOMEN: Soft, nontender, nondistended, normoactive bowel sounds. No palpable organomegaly. MUSCULOSKELETAL: No joint swelling or deformity. EXTREMITIES: No cyanosis, clubbing, or pedal edema. NEUROLOGICAL: Gross neurological examination did not reveal any focal deficits. SKIN: No rashes. Assessment and plan Acute hypoxemic respiratory failure acute COPD exacerbation. Bacterial pneumonia Acute RSV infection Leukocytosis, with left shift Severe chronic obstructive pulmonary disease Benign essential hypertension Former tobacco dependence History of prostate cancer, status post prostatectomy History of esophageal cancer with history of partial esophagectomy and gastric pull Obesity, BMI of 31.6 kg/m Monitor vital signs Monitor CBC Monitor CMP Continue telemetry monitoring Continue breathing treatments Continue IV Rocephin Continue IV Solu-Medrol Continue clonidine continue Requip for restless leg syndrome Pulmonary following Labs and medication were reviewed.. Continue same treatment. Continue with symptomatic treatment. Resume home medication. Monitor labs and vitals. DVT and GI prophylaxis. Further recommendations as per clinical course of the patient Dictation was produced using dragon dictation software. please excuse any grammatical, word or spelling errors. Objective - Vital Signs Vital signs: Vital Signs Temp 97.9 F 10/27/23 12:00 Pulse 101 H 10/27/23 14:00 Resp 18 10/27/23 14:00 BP 169/90 10/27/23 12:00 Pulse Ox 98 10/27/23 12:00 FiO2 40 10/27/23 04:35 Intake & Output 10/26/23 10/27/23 10/27/23 18:59 06:59 18:59 Intake Total 1708 1130 358 Output Total 2 Balance 1708 1130 356 Intake: Intake, IV Titration 50 Amount cefTRIAXone 2 gm In 50 Sodium Chloride 0.9% 50 ml @ 100 mls/hr IVPB HS HERVE Rx#:[id number] Oral 1707 1508 358 Output: Stool 2 Other: Voiding Method Toilet Toilet Toilet # Voids 1 3 - Labs CBC & Chem 7: 10/27/23 08:07 10/27/23 08:07 Labs: Abnormal Lab Results - Last 24 Hours (Table) 10/26/23 10/26/23 10/27/23 Range/Units 16:17 19:59 05:55 WBC (3.8-10.6) k/uL RBC (4.30-5.90) m/uL Hgb (13.0-17.5) gm/dL Hct (39.0-53.0) % Neutrophils # (1.3-7.7) k/uL Lymphocytes # (1.0-4.8) k/uL BUN (9-20) mg/dL Creatinine (0.66-1.25) mg/dL Glucose (74-99) mg/dL POC Glucose (mg/dL) 128 H 176 H 191 H (70-110) mg/dL Total Protein (6.3-8.2) g/dL Albumin (3.5-5.0) g/dL 10/27/23 10/27/23 10/27/23 Range/Units 08:07 08:07 11:59 WBC 15.6 H (3.8-10.6) k/uL RBC 4.07 L (4.30-5.90) m/uL Hgb 11.4 L (13.0-17.5) gm/dL Hct 35.7 L (39.0-53.0) % Neutrophils # 14.8 H (1.3-7.7) k/uL Lymphocytes # 0.2 L (1.0-4.8) k/uL BUN 32 H (9-20) mg/dL Creatinine 0.62 L (0.66-1.25) mg/dL Glucose 149 H (74-99) mg/dL POC Glucose (mg/dL) 207 H (70-110) mg/dL Total Protein 5.8 L (6.3-8.2) g/dL Albumin 3.2 L (3.5-5.0) g/dL Microbiology - Last 24 Hours (Table) 10/23/23 20:04 Blood Culture - Preliminary Blood 10/23/23 19:59 Blood Culture - Preliminary Blood
[2023-10-27 16:52] LABS: Glucose,Whole Blood 131 mg/dL (70-110)
[2023-10-27 20:03] LABS: Glucose,Whole Blood 141 mg/dL (70-110)
[2023-10-27] MEDS: BACLOFEN 10 MG TAB PO SCH (20:39)
[2023-10-28 05:52] LABS: Glucose,Whole Blood 140 mg/dL (70-110)
[2023-10-28] MEDS: PANTOPRAZOLE 40 MG TABLET PO SCH (06:03)
[2023-10-28] MEDS: methylPREDNISolone SOD SUCCI 125 MG/2 ML VIAL IV SCH ×4 (06:03→23:25)
[2023-10-28] MEDS: INSULIN ASPART (NovoLOG) 100 UNIT/ML VIAL SQ SCH ×4 (06:05→20:46)
[2023-10-28] MEDS: cloNIDine HCL 0.1 MG TAB PO SCH ×2 (08:14→20:45)
[2023-10-28] MEDS: DULoxetine HCL 60 MG CAPSULE.DR PO SCH (08:14)
[2023-10-28] MEDS: LOSARTAN 50 MG TAB PO SCH (08:14)
[2023-10-28] MEDS: MAGNESIUM OXIDE 400 MG TAB PO SCH (08:14)
[2023-10-28] MEDS: IPRATROPIUM-ALBUTEROL 3 ML NEB INHALATION SCH ×4 (08:42→21:06)
[2023-10-28] MEDS: FORMOTEROL FUMARATE 20 MCG/2 ML NEBU INHALATION SCH ×2 (08:42→21:06)
[2023-10-28] MEDS: BUDESONIDE 1 MG/2 ML NEBU INHALATION SCH ×2 (08:42→21:06)
[2023-10-28 11:47] LABS: Glucose,Whole Blood 129 mg/dL (70-110)
[2023-10-28 11:55] VITALS: BMI 31.5
--- NOTE | 2023-10-28 13:21 | P.PN ---
Subjective Progress Note Date: 10/28/23 Principal diagnosis: Respiratory failure. I am seeing this patient in consultation today 10/24/2023 in the emergency room, as the patient has been experiencing progressively worsening shortness of breath over the last 4 days. Patient is a 68-year-old white male with past medical history significant for severe COPD, prostate cancer status post prostatectomy, esophageal CA with previous partial esophagectomy and gastric pull. Patient does follow with Dr. Mckenzie in the pulmonary office for management of his severe chronic obstructive pulmonary disease. He normally utilizes a combination of Trelegy Ellipta inhaler, albuterol HFA or nebulizer as needed. Prednisone dependent on 10 mg every day. Most recent PFT has a FEV1 48% of predicted. Over the last 4 days the patient has had progressively worsening shortness of breath. This is accompanied with a productive cough with yellow to green sputum, intermittent fevers, chest tightness. Endorses chest pain only with coughing or deep breathing. Apparently his grandchildren have been sick. He did go into the pulmonary office for a Depo-Medrol injection on October 22, and unfortunately has not felt any better. He was told to come to the emergency room. On arrival, the patient was found to be in some respiratory distress. He was placed on BiPAP. Current settings are 16/8 and FiO2 40%. Generating adequate tidal volumes of 400-500. Respiratory rate is in the 20s. No signs of CO2 narcosis. He did test positive for RSV. Chest x-ray on arrival showed a concerning left basilar infiltrate. Procalcitonin level 0.49. CBC shows leukocytosis with left shift. CBC has a WBC count of 21.2, hemoglobin 13.6, he matocrit 41.5, platelets 254. BMP has a sodium of 134, potassium 3.6, chloride 94, serum bicarb 26, BUN 18, creatinine 0.59, glucose 131. NT proBNP is 714. Troponin less than 0.012. ECG shows sinus tachycardia with RBB. Right axis deviation. No co-infection with influenza or COVID-19. Patient has been started on empiric antibiotics in the form of azithromycin and Rocephin. Currently afebrile. Vital signs stable. The patient is seen today 10/25/2023 for follow-up on the selective care unit. He is currently sitting up at the bedside. Awake and alert in no acute distress. He is feeling better today compared to yesterday. He is maintaining good O2 saturation in the 90s on 4 L/m per nasal cannula. He did utilize BiPAP 16/8 and 40% FiO2. He is still dyspneic with minimal exertion. Dyspneic with conversation. Still broncho spastic and wheezing. Blood and sputum cultures pending. Urine legionella antigen was negative. Glucose 124. He is positive for RSV. Chest x-ray does reveal bilateral airspace opacities concerning for pneumonia. Pro Calcitonin was 0.49. He remains on DuoNeb inhalations, Pulmicort and Perforomist inhalations, Solu-Medrol. Antibiotics in the form of c eftriaxone and azithromycin. Patient was reevaluated today on 10/26/23 patient seems to be doing well today, feeling much better compared to how he felt when he came in. On 4 L nasal cannula with O2 sat 75%, nonetheless the patient has intermittent cough and wheezing, improved but not completely resolved. No labs were drawn on this patient today. Chest x-ray from 10/24 clearly showed some improvement in his left lower lobe pneumonia and he has chronic changes at the right base Patient was reevaluated today on 10/27/2023 patient is improving but not back to baseline, continues to cough and wheeze. Remains on 4 L nasal cannula, O2 sats is 98%, continues to have elevated WBC count 15.6 hemoglobin 11.4 basic metabolic profile is normal and renal profile is normal, blood cultures remain negative so far, sputum cultures are nondiagnostic showed mostly normal respiratory destiny Progress note dated 10/28/2023. The patient is seen today in room 376. The patient's currently on 3 L of oxygen. He does use of BiPAP, on a regular basis, with settings of 16/8, and 40%. He's not receiving any IV fluids. He appears to be relatively stable from the pulmonary standpoint. No new labs today other than a glucose of 129. Microbiology thus far as all negative. Chest x-ray from October 24 was con sistent with bilateral pneumonia. The patient's pro-calcitonin level done back on October 23, was 0.49. The patient was previously treated with azithromycin, and Rocephin. Objective - Vital Signs Vital signs: Vital Signs Temp 97.9 F 10/28/23 07:44 Pulse 96 10/28/23 13:12 Resp 20 10/28/23 11:38 BP 149/79 10/28/23 11:38 Pulse Ox 93 L 10/28/23 11:38 FiO2 40 10/28/23 04:03 Intake & Output 10/27/23 10/28/23 10/28/23 18:59 06:59 18:59 Intake Total 898 10 240 Output Total 2 Balance 896 10 240 Weight 99.79 kg Intake: IV 10 0.9 10 Oral 898 240 Output: Stool 2 Other: Voiding Method Toilet Toilet # Voids 3 1 2 - Exam No acute distress, oriented 3. The patient is currently on 3 L of oxygen. Saturations are in the mid 90s. HEENT examination is grossly unremarkable. Mucous membranes are moist. No oral lesions. Neck supple. Full range of motion. No adenopathy thyromegaly or neck vein distention. Cardiovascular examination reveals regular rhythm rate. S1-S2 normal. No S3 or S4. No discernible murmur noted. Heart rate 87 bpm. Heart sounds are distant. Lungs reveal expiratory wheezes and rhonchi. No crackles. Breath sounds equal bilaterally. Breath sounds are diminished throughout. Adventitious lung sounds are more prominent on forced maneuver. Abdomen soft bowel sounds are heard. No masses or tenderness. Extremities are intact. No cyanosis clubbing or edema. Skin is without rash or lesion. Neurologic examination is brief but nonfocal. - Labs CBC & Chem 7: 10/27/23 08:07 10/27/23 08:07 Labs: Abnormal Lab Results - Last 24 Hours (Table) 10/27/23 10/27/23 10/28/23 Range/Units 16:50 20:02 05:51 POC Glucose (mg/dL) 131 H 141 H 140 H (70-110) mg/dL 10/28/23 Range/Units 11:45 POC Glucose (mg/dL) 129 H (70-110) mg/dL Microbiology - Last 24 Hours (Table) 10/24/23 02:00 Legionella Culture - Preliminary Sputum Assessment and Plan Assessment: Acute hypoxemic respiratory failure secondary to acute COPD exacerbation, RSV tracheobronchitis, and possible bacterial pneumonia. Severe COPD, with an acute exacerbation. Acute RSV infection. Benign essential hypertension. Former tobacco dependence. History of prostate cancer, status post prostatectomy. History of esophageal cancer, with partial esophagectomy, and gastric pull- through. Obesity. Plan: Plan dated 10/28/2022. The patient continues on treatment for COPD, with budesonide, formoterol, albuterol, and ipratropium bromide. In addition, the patient continues on Solu- Medrol. The patient did receive antibiotics, in the form of Rocephin and azithromycin. We will continue to follow the patient, and make recommendations along the way. He's currently on 3 L with adequate saturations. He does use of BiPAP at nighttime, with settings of 16/8, and 40%. Labs, x-rays, and medications are reviewed. Prognosis is guarded. Time with Patient: Less than 30
--- NOTE | 2023-10-28 16:05 | P.PN ---
Subjective Progress Note Date: 10/28/23 10/28/2023 this is a 68-year-old gentleman admitted with acute COPD exacerbation, RSV tracheobronchitis, suspected bacterial pneumonia, acute hypoxic respiratory failure and multiple other medical issues continues on nebulized bronchodilators, IV steroids, Rocephin, azithromycin. Blood sugars better controlled Afebrile. Currently maintaining O2 sats in the mid 90s on 3 L nasal cannula. Uses BiPAP at night. Objective - Vital Signs Vital signs: Vital Signs Temp 97.9 F 10/28/23 07:44 Pulse 96 10/28/23 13:12 Resp 20 10/28/23 11:38 BP 149/79 10/28/23 11:38 Pulse Ox 93 L 10/28/23 11:38 FiO2 40 10/28/23 04:03 Intake & Output 10/27/23 10/28/23 10/28/23 18:59 06:59 18:59 Intake Total 898 10 690 Output Total 2 Balance 896 10 690 Weight 99.79 kg Intake: IV 10 0.9 10 Oral 898 690 Output: Stool 2 Other: Voiding Method Toilet Toilet # Voids 3 1 1 - Exam PHYSICAL EXAM: VITAL SIGNS: [As above] GENERAL: Alert and oriented 3, Sitting up in bed, no acute distress. HEENT: Normocephalic, atraumatic, Conjunctivae normal. eyes normal. MMM. NECK: Supple, No JVD. CARDIOVASCULAR: S1, S2 regular. No murmur RESPIRATION: Breath sounds diminished in the bases. Mild congestion with minimal expiratory wheezing. ABDOMEN: Soft, nontender . No guarding. no masses palpable. No ascites, No hepatosplenomegaly.Bowel sounds heard. LEGS: No edema. no swelling. NERVOUS SYSTEM: Cranial N 2-12 grossly normal. No focal deficits. Strength and sensation grossly intact. Skin: Warm and dry, no rash - Labs CBC & Chem 7: 10/27/23 08:07 10/27/23 08:07 Labs: Abnormal Lab Results - Last 24 Hours (Table) 10/27/23 10/27/23 10/28/23 Range/Units 16:50 20:02 05:51 POC Glucose (mg/dL) 131 H 141 H 140 H (70-110) mg/dL 10/28/23 Range/Units 11:45 POC Glucose (mg/dL) 129 H (70-110) mg/dL Microbiology - Last 24 Hours (Table) 10/24/23 02:00 Legionella Culture - Preliminary Sputum Assessment and Plan Assessment: Acute COPD exacerbation with RSV tracheobronchitis, and suspect bacterial pneumonia Acute RSV infection Leukocytosis Severe COPD Hypertension, History of esophageal cancer with history of partial esophagectomy Former nicotine dependence The history of prostate cancer status post prostatectomy Obesity, BMI 32 Plan: Continue on current medication regime ,monitoring and symptomatic treatment. Maintain antibiotics, nebulized bronchodilators, IV steroids. Follow closely with pulmonary. WBC appears To be trending down, close mon itoring of renal function, repeat labs ordered for a.m. The impression and plan of care has been dictated as directed. : I performed a history and examination of this patient, discussed the same with the dictator. I agree with the dictator's note ,documented as a scribe. Any additional findings or plans will be noted.
[2023-10-28 16:49] LABS: Glucose,Whole Blood 188 mg/dL (70-110)
[2023-10-28 20:42] LABS: Glucose,Whole Blood 195 mg/dL (70-110)
[2023-10-28] MEDS: BACLOFEN 10 MG TAB PO SCH (20:45)
[2023-10-29 05:41] LABS: Glucose,Whole Blood 138 mg/dL (70-110)
[2023-10-29] MEDS: INSULIN ASPART (NovoLOG) 100 UNIT/ML VIAL SQ SCH ×3 (05:45→16:32)
[2023-10-29] MEDS: PANTOPRAZOLE 40 MG TABLET PO SCH (05:51)
[2023-10-29] MEDS: methylPREDNISolone SOD SUCCI 125 MG/2 ML VIAL IV SCH ×2 (05:51→10:59)
[2023-10-29] MEDS: LOSARTAN 50 MG TAB PO SCH (08:31)
[2023-10-29] MEDS: MAGNESIUM OXIDE 400 MG TAB PO SCH (08:31)
[2023-10-29] MEDS: cloNIDine HCL 0.1 MG TAB PO SCH (08:31)
[2023-10-29] MEDS: DULoxetine HCL 60 MG CAPSULE.DR PO SCH (08:31)
[2023-10-29] MEDS: FORMOTEROL FUMARATE 20 MCG/2 ML NEBU INHALATION SCH (09:08)
[2023-10-29] MEDS: BUDESONIDE 1 MG/2 ML NEBU INHALATION SCH (09:08)
[2023-10-29] MEDS: IPRATROPIUM-ALBUTEROL 3 ML NEB INHALATION SCH ×3 (09:08→16:15)
[2023-10-29 11:23] LABS: Basophils % (A) 0 %; Eosinophils % (A) 0 %; HCT 37.4 % (39.0-53.0); HGB 11.8 gm/dL (13.0-17.5); Hypochromasia Moderate; Lymphocytes # (A) 0.3 k/uL (1.0-4.8); Lymphocytes % (A) 2 %; MCHC 31.5 g/dL (31.0-37.0); Monocytes # (A) 0.5 k/uL (0-1.0); Monocytes % (A) 3 %; Neutrophils # (A) 14.1 k/uL (1.3-7.7); Neutrophils % (A) 95 %; Platelet Count 279 k/uL (150-450); RBC 4.21 m/uL (4.30-5.90); RDW 14.8 % (11.5-15.5)
[2023-10-29 11:44] LABS: Glucose,Whole Blood 124 mg/dL (70-110)
[2023-10-29 11:51] VITALS: RESP 18
[2023-10-29 11:55] LABS: African American GFR (CKD) >90 (>60 ml/min/1.73 sqM); Anion Gap 7 mmol/L; Blood Urea Nitrogen 32 mg/dL (9-20); Calcium 8.3 mg/dL (8.4-10.2); Carbon Dioxide 29 mmol/L (22-30); Chloride 100 mmol/L (98-107); Glucose 106 mg/dL (74-99); Non-African American GFR(CKD) >90 (>60 ml/min/1.73 sqM); Potassium 4.4 mmol/L (3.5-5.1); Sodium 136 mmol/L (137-145)
[2023-10-29] MEDS ORDERED: methylPREDNISolone SOD SUCCI 40 MG/ML 1 ML VIAL IV SCH (13:15)
[2023-10-29 16:17] VITALS: BP 167/92; TEMP 98.4
[2023-10-29 16:40] VITALS: PULSE 92
--- NOTE | 2023-10-29 16:40 | P.PN ---
Subjective Progress Note Date: 10/29/23 Principal diagnosis: Respiratory failure. I am seeing this patient in consultation today 10/24/2023 in the emergency room, as the patient has been experiencing progressively worsening shortness of breath over the last 4 days. Patient is a 68-year-old white male with past medical history significant for severe COPD, prostate cancer status post prostatectomy, esophageal CA with previous partial esophagectomy and gastric pull. Patient does follow with Dr. Mckenzie in the pulmonary office for management of his severe chronic obstructive pulmonary disease. He normally utilizes a combination of Trelegy Ellipta inhaler, albuterol HFA or nebulizer as needed. Prednisone dependent on 10 mg every day. Most recent PFT has a FEV1 48% of predicted. Over the last 4 days the patient has had progressively worsening shortness of breath. This is accompanied with a productive cough with yellow to green sputum, intermittent fevers, chest tightness. Endorses chest pain only with coughing or deep breathing. Apparently his grandchildren have been sick. He did go into the pulmonary office for a Depo-Medrol injection on October 22, and unfortunately has not felt any better. He was told to come to the emergency room. On arrival, the patient was found to be in some respiratory distress. He was placed on BiPAP. Current settings are 16/8 and FiO2 40%. Generating adequate tidal volumes of 400-500. Respiratory rate is in the 20s. No signs of CO2 narcosis. He did test positive for RSV. Chest x-ray on arrival showed a concerning left basilar infiltrate. Procalcitonin level 0.49. CBC shows leukocytosis with left shift. CBC has a WBC count of 21.2, hemoglobin 13.6, he matocrit 41.5, platelets 254. BMP has a sodium of 134, potassium 3.6, chloride 94, serum bicarb 26, BUN 18, creatinine 0.59, glucose 131. NT proBNP is 714. Troponin less than 0.012. ECG shows sinus tachycardia with RBB. Right axis deviation. No co-infection with influenza or COVID-19. Patient has been started on empiric antibiotics in the form of azithromycin and Rocephin. Currently afebrile. Vital signs stable. The patient is seen today 10/25/2023 for follow-up on the selective care unit. He is currently sitting up at the bedside. Awake and alert in no acute distress. He is feeling better today compared to yesterday. He is maintaining good O2 saturation in the 90s on 4 L/m per nasal cannula. He did utilize BiPAP 16/8 and 40% FiO2. He is still dyspneic with minimal exertion. Dyspneic with conversation. Still broncho spastic and wheezing. Blood and sputum cultures pending. Urine legionella antigen was negative. Glucose 124. He is positive for RSV. Chest x-ray does reveal bilateral airspace opacities concerning for pneumonia. Pro Calcitonin was 0.49. He remains on DuoNeb inhalations, Pulmicort and Perforomist inhalations, Solu-Medrol. Antibiotics in the form of c eftriaxone and azithromycin. Patient was reevaluated today on 10/26/23 patient seems to be doing well today, feeling much better compared to how he felt when he came in. On 4 L nasal cannula with O2 sat 75%, nonetheless the patient has intermittent cough and wheezing, improved but not completely resolved. No labs were drawn on this patient today. Chest x-ray from 10/24 clearly showed some improvement in his left lower lobe pneumonia and he has chronic changes at the right base Patient was reevaluated today on 10/27/2023 patient is improving but not back to baseline, continues to cough and wheeze. Remains on 4 L nasal cannula, O2 sats is 98%, continues to have elevated WBC count 15.6 hemoglobin 11.4 basic metabolic profile is normal and renal profile is normal, blood cultures remain negative so far, sputum cultures are nondiagnostic showed mostly normal respiratory destiny Progress note dated 10/28/2023. The patient is seen today in room 376. The patient's currently on 3 L of oxygen. He does use of BiPAP, on a regular basis, with settings of 16/8, and 40%. He's not receiving any IV fluids. He appears to be relatively stable from the pulmonary standpoint. No new labs today other than a glucose of 129. Microbiology thus far as all negative. Chest x-ray from October 24 was con sistent with bilateral pneumonia. The patient's pro-calcitonin level done back on October 23, was 0.49. The patient was previously treated with azithromycin, and Rocephin. Progress note dated 10/29/2023. The patient is seen today in room 376. The patient continues on oxygen at 3 L. The patient is hoping to be discharged. He does not have a BiPAP device at home. Currently, the patient is not receiving any IV fluids. The patient follows up with my partner in the office, and I've asked him to make sure he gets in to see him, in the next 10-14 days. Currently labs include a white count of 15, hemoglobin 11.8, hematocrit 37.4, and a platelet count of 279,000. Sodium is 136, potassium 4.4, chlorides 100, CO2 29, BUN 32, creatinine 0.68. Glucose 124. Objective - Vital Signs Vital signs: Vital Signs Temp 98.4 F 10/29/23 15:59 Pulse 92 10/29/23 16:29 Resp 18 10/29/23 15:59 BP 167/92 10/29/23 15:59 Pulse Ox 95 10/29/23 15:59 FiO2 40 10/29/23 03:15 Intake & Output 10/28/23 10/29/23 10/29/23 18:59 06:59 18:59 Intake Total 726 862 8649 Balance 971 013 1476 Weight 99.79 kg Intake: Oral 269 333 0346 Other: Voiding Method Toilet Toilet # Voids 1 2 2 - Exam No acute distress, oriented 3. The patient is currently on 3 L of oxygen. Saturations are 95%. HEENT examination is grossly unremarkable. Mucous membranes are moist. No oral lesions. Neck supple. Full range of motion. No adenopathy thyromegaly or neck vein distention. Cardiovascular examination reveals regular rhythm rate. S1-S2 normal. No S3 or S4. No discernible murmur noted. Heart rate 92 bpm. Heart sounds are distant. Lungs reveal expiratory wheezes and rhonchi. No crackles. Breath sounds equal bilaterally. Breath sounds are diminished throughout. Adventitious lung sounds are more prominent on forced maneuver. Abdomen soft bowel sounds are heard. No masses or tenderness. Extremities are intact. No cyanosis clubbing or edema. Skin is without rash or lesion. Neurologic examination is brief but nonfocal. - Labs CBC & Chem 7: 10/29/23 11:09 10/29/23 11:09 Labs: Abnormal Lab Results - Last 24 Hours (Table) 10/28/23 10/28/23 10/29/23 Range/Units 16:48 20:41 05:40 WBC (3.8-10.6) k/uL RBC (4.30-5.90) m/uL Hgb (13.0-17.5) gm/dL Hct (39.0-53.0) % Neutrophils # (1.3-7.7) k/uL Lymphocytes # (1.0-4.8) k/uL Sodium (137-145) mmol/L BUN (9-20) mg/dL Glucose (74-99) mg/dL POC Glucose (mg/dL) 188 H 195 H 138 H (70-110) mg/dL Calcium (8.4-10.2) mg/dL 10/29/23 10/29/23 10/29/23 Range/Units 11:09 11:09 11:42 WBC 15.0 H (3.8-10.6) k/uL RBC 4.21 L (4.30-5.90) m/uL Hgb 11.8 L (13.0-17.5) gm/dL Hct 37.4 L (39.0-53.0) % Neutrophils # 14.1 H (1.3-7.7) k/uL Lymphocytes # 0.3 L (1.0-4.8) k/uL Sodium 136 L (137-145) mmol/L BUN 32 H (9-20) mg/dL Glucose 106 H (74-99) mg/dL POC Glucose (mg/dL) 124 H (70-110) mg/dL Calcium 8.3 L (8.4-10.2) mg/dL Microbiology - Last 24 Hours (Table) 10/23/23 20:04 Blood Culture - Final Blood 10/23/23 19:59 Blood Culture - Final Blood Assessment and Plan Assessment: Acute hypoxemic respiratory failure secondary to acute COPD exacerbation, RSV tracheobronchitis, and possible bacterial pneumonia. Severe COPD, with an acute exacerbation. Acute RSV infection. Benign essential hypertension. Former tobacco dependence. History of prostate cancer, status post prostatectomy. History of esophageal cancer, with partial esophagectomy, and gastric pull- through. Obesity. Plan: Plan dated 10/28/2022. The patient continues on treatment for COPD, with budesonide, formoterol, albuterol, and ipratropium bromide. In addition, the patient continues on Solu- Medrol. The patient did receive antibiotics, in the form of Rocephin and azithromycin. We will continue to follow the patient, and make recommendations along the way. He's currently on 3 L with adequate saturations. He does use of BiPAP at nighttime, with settings of 16/8, and 40%. Labs, x-rays, and medications are reviewed. Prognosis is guarded. Plan dated 10/29/2023. The patient is hoping to be discharged home today. The patient is feeling much improved, and is currently just on oxygen at 3 L. This is what he uses at home. Saturation is 95% on 3 L. The rest of his vital signs are stable including heart rate, respiratory rate, and blood pressure. He is afebrile. Labs, x- rays, medications are reviewed. The patient will follow-up with my partner in the office, in 10 to 14 days. No additional recommendations are made. Time with Patient: Less than 30
--- NOTE | 2023-10-31 16:52 | P.DS ---
Providers Date of admission: 10/23/23 20:09 Expected date of discharge: 10/29/23 Attending physician: Alex Robbins Consults: 10/23/23 19:59 Consult Physician Routine Consulting Provider: Tanya Sauer Reason/Comments: bipap dependant resp failure, rsv bronchitis Do you want consulting provider notified?: Yes Primary care physician: Alex Robbins Hospital Course: Final Diagnoses: Acute COPD exacerbation with RSV tracheobronchitis, and suspect bacterial pneumonia Acute RSV infection Acute on Chronic hypoxic respiratory failure, on 3 L nasal cannula at home Leukocytosis Severe COPD Hypertension, History of esophageal cancer with history of partial esophagectomy Former nicotine dependence The history of prostate cancer status post prostatectomy Obesity, BMI 32 Hospital course:10/28/2023 this is a 68-year-old gentleman admitted with acute COPD exacerbation, RSV tracheobronchitis, suspected bacterial pneumonia, acute hypoxic respiratory failure and multiple other medical issues continues on nebulized bronchodilators, IV steroids, Rocephin, azithromycin. Blood sugars better controlled Afebrile. Currently maintaining O2 sats in the mid 90s on 3 L nasal cannula. Uses BiPAP at night. 10/29/2023 continues on 3 L nasal cannula, baseline. Patient does not have a BiPAP device at home which will be arranged by pulmonary outpatient . Significant clinical improvement, feels much better today. Maintaining O2 sats in the mid 90s on 3 L nasal cannula. Afebrile. Denies chest pain, palpitations or increasing shortness of breath. Patient will be discharged home today in a stable condition with guarded prognosis pending final DC recommendations and clearance per pulmonary. The impression and plan of care has been dictated as directed. : I performed a history and examination of this patient, discussed the same with the dictator. I agree with the dictator's note ,documented as a scribe. Any additional findings or plans will be noted. Patient Condition at Discharge: Stable Plan - Discharge Summary Discharge Rx Participant: No New Discharge Prescriptions: New predniSONE 10 mg PO DIRECTED #30 tab Continue Omeprazole 40 mg PO HS cloNIDine HCL [Catapres] 0.1 mg PO BID Losartan Potassium 100 mg PO DAILY Omeprazole 20 mg PO BID rOPINIRole HCL [Requip] 2 mg PO BID DULoxetine HCL [Cymbalta] 60 mg PO DAILY Baclofen [Lioresal] 20 mg PO HS Fluticasone/Umeclidin/Vilanter [Trelegy Ellipta 200-62.5-25] 1 puff INHALATION RT-DAILY Cyclobenzaprine [Flexeril] 10 mg PO TID PRN PRN Reason: Muscle Spasm Magnesium Oxide [Mag-Ox] 250 mg PO DAILY Ipratropium-Albuterol Nebulize [Duoneb 0.5 mg-3 mg/3 ml Soln] 3 ml INHALATION RT-QID PRN PRN Reason: Shortness Of Breath Albuterol Sulfate [Albuterol Sulfate Hfa] 2 puff INHALATION RT-QID predniSONE 10 mg PO DAILY #0 Discharge Medication List Omeprazole 40 mg PO HS 04/26/17 [History] cloNIDine HCL [Catapres] 0.1 mg PO BID 10/02/18 [History] Losartan Potassium 100 mg PO DAILY 03/20/19 [History] Omeprazole 20 mg PO BID 06/08/19 [History] Fluticasone/Umeclidin/Vilanter [Trelegy Ellipta 200-62.5-25] 1 puff INHALATION RT-DAILY 05/25/21 [History] Baclofen [Lioresal] 20 mg PO HS 07/04/22 [History] DULoxetine HCL [Cymbalta] 60 mg PO DAILY 07/04/22 [History] rOPINIRole HCL [Requip] 2 mg PO BID 07/04/22 [History] Albuterol Sulfate [Albuterol Sulfate Hfa] 2 puff INHALATION RT-QID 10/23/23 [History] Cyclobenzaprine [Flexeril] 10 mg PO TID PRN 10/23/23 [History] Ipratropium-Albuterol Nebulize [Duoneb 0.5 mg-3 mg/3 ml Soln] 3 ml INHALATION RT-QID PRN 10/23/23 [History] Magnesium Oxide [Mag-Ox] 250 mg PO DAILY 10/23/23 [History] predniSONE 10 mg PO DIRECTED #30 tab 10/29/23 [Rx] predniSONE 10 mg PO DAILY #0 10/29/23 [Rx] Follow up Appointment(s)/Referral(s): Alex Robbins DO [Primary Care Provider] - 3 Days (Call and make j carlos. ) Janet Mckenzie MD [STAFF PHYSICIAN] - 2 Weeks (Call and make j carlos. ) Patient Instructions/Handouts: Respiratory Syncytial Virus (DC), COPD (Chronic Obstructive Pulmonary Disease) (DC) Activity/Diet/Wound Care/Special Instructions: 3 L nasal cannula O2 Legionella sputum culture pending Discharge Disposition: HOME WITH HOME HEALTH SERVICES
== END 2023-10-29 16:43 | disposition home health service (06) | DRG 193 ==
LOC: EC 18:24 → 3SCARD 20:09
PROVIDERS: ADMIT Family Medicine; ATTEND Family Medicine
PROC: 5A09357 Assistance with Respiratory Ventilation, Less than 24 Consecutive Hours, Continuous Positive Airway Pressure (ICD-10-PCS; principal; 2023-10-23)
DX: J15.9 Unspecified bacterial pneumonia (principal); J96.01 Acute respiratory failure with hypoxia; J44.0 Chronic obstructive pulmonary disease with (acute) lower respiratory infection; J44.1 Chronic obstructive pulmonary disease with (acute) exacerbation; J20.5 Acute bronchitis due to respiratory syncytial virus; E66.9 Obesity, unspecified; Z68.31 Body mass index [BMI] 31.0-31.9, adult; I45.10 Unspecified right bundle-branch block; K21.9 Gastro-esophageal reflux disease without esophagitis; G62.9 Polyneuropathy, unspecified; I10 Essential (primary) hypertension; F41.9 Anxiety disorder, unspecified; F32.A Depression, unspecified; G25.81 Restless legs syndrome; Z96.651 Presence of right artificial knee joint; Z77.090 Contact with and (suspected) exposure to asbestos; Z99.81 Dependence on supplemental oxygen; Z85.46 Personal history of malignant neoplasm of prostate; Z85.01 Personal history of malignant neoplasm of esophagus; Z79.899 Other long term (current) drug therapy; Z79.52 Long term (current) use of systemic steroids; Z87.891 Personal history of nicotine dependence; Z11.52 Encounter for screening for COVID-19
CPT/HCPCS: 36415; 71045; 80048; 80053; 83605; 83735; 83880; 84145; 84484; 85025; 85610; 85730; 87040; 87070; 87205; 87449; 87636; 93005; 94640; 94660; 96365; 96366; 96367; 96375; 96376; 99291

== ENCOUNTER 2023-11-28 20:33 | Inpatient (IN) | payer MEDICARE ==
[2023-11-28 21:42] LABS: Anisocytosis Slight; Basophils % (A) 0 %; Eosinophils # (A) 0.2 k/uL (0-0.7); Eosinophils % (A) 1 %; HCT 41.7 % (39.0-53.0); HGB 13.3 gm/dL (13.0-17.5); Hypochromasia Slight; Lymphocytes # (A) 0.6 k/uL (1.0-4.8); Lymphocytes % (A) 3 %; MCH 27.7 pg (25.0-35.0); MCHC 31.9 g/dL (31.0-37.0); Mean Platelet Volume 7.6; Monocytes # (A) 0.7 k/uL (0-1.0); Monocytes % (A) 4 %; Neutrophils # (A) 17.3 k/uL (1.3-7.7); Neutrophils % (A) 91 %; Platelet Count 298 k/uL (150-450); RDW 16.3 % (11.5-15.5)
[2023-11-28] MEDS: ALBUTEROL HFA INHALER INHALATION STA (21:45)
--- NOTE | 2023-11-28 21:45 | XR ---
EXAMINATION: XR chest 2V: 11/28/2023 9:36 PM CLINICAL INDICATION: difficulty breathing. ED patient. TECHNIQUE: Departmental protocol COMPARISON: 10/24/2023 AP upright portable FINDINGS/IMPRESSION: Overall lung inflation pattern is worse than on 10/24/2023. There is increased dense consolidation now seen throughout the entirety of right lower lobe with associated with minimal volume loss and, theref ore, the findings are consistent with a clinical diagnosis of RLL bronchopneumonia. Underlying endobr onchial lesion at the hilum cannot be excluded without CT or MRI. Pleural spaces are negative as seen. Mildly enlarged cardiac silhouette and tortuous thoracic aorta noted. No acute skeletal or soft tissue findings.
[2023-11-28 21:50] LABS: INR 0.9 (<1.2); Partial Thromboplastin Time 24.4 sec (22.0-30.0); Prothrombin Time 10.4 sec (10.0-12.5)
[2023-11-28 21:53] LABS: ALT 20 U/L (4-49); AST 24 U/L (17-59); African American GFR (CKD) >90 (>60 ml/min/1.73 sqM); Albumin 3.8 g/dL (3.5-5.0); Alkaline Phosphatase 94 U/L (38-126); Anion Gap 10 mmol/L; Blood Urea Nitrogen 27 mg/dL (9-20); Calcium 9.1 mg/dL (8.4-10.2); Carbon Dioxide 25 mmol/L (22-30); Chloride 103 mmol/L (98-107); Glucose 126 mg/dL (74-99); Non-African American GFR(CKD) >90 (>60 ml/min/1.73 sqM); Potassium 4.2 mmol/L (3.5-5.1); Sodium 138 mmol/L (137-145); Total Bilirubin 0.7 mg/dL (0.2-1.3); Total Protein 6.8 g/dL (6.3-8.2)
[2023-11-28 22:01] LABS: NT-Pro-B-Type Natriuretic Pept 120 pg/mL
[2023-11-28] MEDS: MAGNESIUM SULFATE-D5W PMX 1 GM in DEXTROSE/WATER 1 100ML.BAG IVPB STA (22:03)
[2023-11-28] MEDS: methylPREDNISolone SOD SUCCI 125 MG/2 ML VIAL IV STA (22:03)
[2023-11-28] MEDS ORDERED: PNEUMONIA PROTOCOL UTILIZED 1 EACH MISC PO PRN (22:22)
[2023-11-28] MEDS ORDERED: NALOXONE 0.4 MG/ML 1 ML VIAL IV PRN (22:27)
[2023-11-28] MEDS: IPRATROPIUM-ALBUTEROL 3 ML NEB INHALATION STA (22:33)
--- NOTE | 2023-11-28 22:36 | ED ---
General Adult HPI - General Chief complaint: Shortness of Breath Stated complaint: SOB, cant breathe Time Seen by Provider: 11/28/23 21:00 Source: patient, RN notes reviewed, old records reviewed Mode of arrival: wheelchair Limitations: no limitations - History of Present Illness Initial comments: Patient is a 68-year-old male with past medical history markable for COPD on home 3 L nasal cannula oxygen. No longer smoker. Having some chest tightness/ pressure. Also having worsening shortness of breath and nonproductive cough but feels congested in his chest. States that has been ongoing for the last 3 to 4 days. Was admitted in the last month for IV antibiotics for pneumonia. Presents for further evaluation at this time. Denies any lightheadedness. Denies any radiation of the chest pressure/tightness. Denies any nausea, vomiting, abdominal pain. No known sick contacts. No fevers. - Related Data Home Medications Medication Instructions Recorded Confirmed Omeprazole 40 mg PO HS 04/26/17 10/23/23 cloNIDine HCL [Catapres] 0.1 mg PO BID 10/02/18 10/23/23 Losartan Potassium 100 mg PO DAILY 03/20/19 10/23/23 Omeprazole 20 mg PO BID 06/08/19 10/23/23 Fluticasone/Umeclidin/Vilanter 1 puff INHALATION RT-DAILY 05/25/21 10/23/23 [Trelegy Ellipta 200-62.5-25] Baclofen [Lioresal] 20 mg PO HS 07/04/22 10/23/23 DULoxetine HCL [Cymbalta] 60 mg PO DAILY 07/04/22 10/23/23 rOPINIRole HCL [Requip] 2 mg PO BID 07/04/22 10/23/23 Albuterol Sulfate [Albuterol 2 puff INHALATION RT-QID 10/23/23 10/23/23 Sulfate Hfa] Cyclobenzaprine [Flexeril] 10 mg PO TID PRN 10/23/23 10/23/23 Ipratropium-Albuterol Nebulize 3 ml INHALATION RT-QID PRN 10/23/23 10/23/23 [Duoneb 0.5 mg-3 mg/3 ml Soln] Magnesium Oxide [Mag-Ox] 250 mg PO DAILY 10/23/23 10/23/23 Previous Rx's Medication Instructions Recorded predniSONE 10 mg PO DIRECTED #30 tab 10/29/23 predniSONE 10 mg PO DAILY #0 10/29/23 Allergies Allergy/AdvReac Type Severity Reaction Status Date / Time No Known Allergies Allergy Verified 11/28/23 20:53 Review of Systems ROS Statement: Those systems with pertinent positive or pertinent negative responses have been documented in the HPI. Review of Systems: CONST: Denies fever EYES: Denies blurry vision ENT: Denies nasal congestion C/V: Denies Chest pain RESP: Endorses shortness of breath, cough GI: Denies abdominal pain : Denies dysuria SKIN: Denies rash. MSK: Denies joint pain. NEURO: Denies headache ROS Other: All systems not noted in ROS Statement are negative. Past Medical History Past Medical History: Cancer, COPD, GERD/Reflux, Hypertension Additional Past Medical History / Comment(s): Neuropathy, hx esophageal cancer treated with surgery - 2008,. prostate cancer current 10/2023 History of Any Multi-Drug Resistant Organisms: None Reported Past Surgical History: Appendectomy, Hernia Repair, Joint Replacement, Orthopedic Surgery Additional Past Surgical History / Comment(s): Bilateral elbow, bilateral wrist carpal tunnel, bilateral rotator cuff surgeryx3 , right knee arthroscopy, right knee replacement, surgery for esophageal cancer (removed part of esophagus and removed part of stomach making it into carrot shape per patient), hernia repair X4. robotic prostatectomy with bilateral stent placement and pelvic lymph node removal 08/11/20 Past Anesthesia/Blood Transfusion Reactions: Previous Problems w/ Anesthesia Additional Past Anesthesia/Blood Transfusion Reaction / Comment(s): can not lay flat- "stomach acid will come out my nose" Past Psychological History: Anxiety, Depression Smoking Status: Former smoker Past Alcohol Use History: None Reported Past Drug Use History: None Reported - Past Family History Father Family Medical History: Cancer Additional Family Medical History / Comment(s): COLON Cancer. Mother Family Medical History: Cancer, Deep Vein Thrombosis (DVT) Additional Family Medical History / Comment(s): Brain aneurysm. General Exam - General Exam Comments Initial Comments: General: Appears in no acute distress. HEAD: Normal with no signs of head trauma. EYES: PERRLA, EOMI, conjunctiva normal, no discharge. ENT: Hearing grossly intact, normal oropharynx. RESPIRATORY: Bilateral end expiratory wheezing. No hypoxia on baseline 3 L nasal cannula. No significant increased work of breathing at this time. C/V: Regular rate and rhythm. S1 and S2 auscultated, symmetrical bilateral lower extremity pitting edema, peripheral pulses 2+ and intact throughout ABD: Abd is soft, nontender, nondistended EXT: Normal range of motion, no obvious deformity SKIN: No rashes or lesions observed on exposed skin. NEURO: Alert and oriented x 4. Limitations: no limitations Course Vital Signs 11/28/23 11/28/23 20:51 22:33 Temperature 99.1 F Pulse Rate 105 H 96 Respiratory 22 Rate Blood Pressure 128/84 O2 Sat by Pulse 94 L Oximetry Medical Decision Making - Medical Decision Making Was pt. sent in by a medical professional or institution (, PA, XEROX MACHINE ASSEMBLER, urgent care, hospital, or [facility]...) When possible be specific @ -No Did you speak to anyone other than the patient for history (EMS, parent, family, police, friend...)? What history was obtained from this source @ -No Did you review nursing and triage notes (agree or disagree)? Why? @ -I reviewed and agree with nursing and triage notes Were old charts reviewed (outside hosp., previous admission, EMS record, old EKG, old radiological studies, urgent care reports/EKG's, [facility] records)? Report findings @ -Old charts reviewed Differential Diagnosis (chest pain, altered mental status, abdominal pain women, abdominal pain men, vaginal bleeding, weakness, fever, dyspnea, syncope, headache, dizziness, GI bleed, back pain, seizure, CVA, palpatations, mental health, musculoskeletal)? @ -Differential Dyspnea: Coronary syndrome, arrhythmia, tamponade, asthma, COPD, pulmonary embolism, pneumonia, pneumothorax, pulmonary effusion, anaphylaxis, diabetic ketoacidosis, flailed chest, pulmonary contusion, diaphragmatic rupture, anemia, neuromuscular, this is not meant to be an all-inclusive list. EKG interpreted by me (3pts min.). @ -As above X-rays interpreted by me (1pt min.). @ -Chest x-ray reveals a right sided pneumonia. CT interpreted by me (1pt min.). @ -None done U/S interpreted by me (1pt. min.). @ -None done What testing was considered but not performed or refused? (CT, X-rays, U/S, labs)? Why? @ -None What meds were considered but not given or refused? Why? @ -None Did you discuss the management of the patient with other professionals (professionals i.e. , PA, XEROX MACHINE ASSEMBLER, lab, RT, psych nurse, social director, hims manager, teacher, real estate loan officer, case checker)? Give summary @ -Discussed with admitting physician Dr. Robbins who accepted the patient. Was smoking cessation discussed for >3mins.? @ -No Was critical care preformed (if so, how long)? @ -No Were there social determinants of health that impacted care today? How? (Homelessness, low income, unemployed, alcoholism, drug addiction, transportation, low edu. Level, literacy, decrease access to med. care, intermediate, rehab)? @ -No Was there de-escalation of care discussed even if they declined (Discuss DNR or withdrawal of care, Hospice)? DNR status @ -No What co-morbidities impacted this encounter? (DM, HTN, Smoking, COPD, CAD, Cancer, CVA, ARF, Chemo, Hep., AIDS, mental health diagnosis, sleep apnea, morbid obesity)? @ -COPD, chronic hypoxic respiratory failure on 3 L nasal cannula. Was patient admitted / discharged? Hospital course, mention meds given and route, prescriptions, significant lab abnormalities, going to OR and other pertinent info. @ -Based on the patient's presentation and physical exam, patient presents emergency department complaining of shortness of breath, chest tightness. Appears to have a COPD exacerbation with concern for possible infectious or cardiac etiology. We will obtain cardiopulmonary workup. Vital signs are within acceptable limits on patient's baseline 3 L nasal cannula oxygen. Patient was in agreement this plan. For the patient COPD, we will treat with IV steroids as well as breathing treatments. Patient also will receive 1 g of magnesium. EKG shows no signs of acute ischemia. Chest x-ray shows right-sided pneumonia. Patient's laboratory studies remarkable for leukocytosis of 19. Troponin undetectable. Viral swabs negative. I discussed results with the patient. I recommended admission to the hospital on IV antibiotics. He had recent IV antibiotics and therefore he will be placed on Zosyn as well as azithromycin. Blood cultures and sputum cultures ordered. Will continue with treatment of the patient's COPD with steroids and breathing treatments. Patient is still mildly wheezy at this time. Patient was in agreement this plan. I spoke with the admitting physician, Dr. Robbins who accepted the patient. Undiagnosed new problem with uncertain prognosis? @ -No Drug Therapy requiring intensive monitoring for toxicity (Heparin, Nitro, Insulin, Cardizem)? @ -No Were any procedures done? @ -No Diagnosis/symptom? @ -Pneumonia, COPD exacerbation Acute, or Chronic, or Acute on Chronic? @ -Acute Uncomplicated (without systemic symptoms) or Complicated (systemic symptoms)? @ -Complicated Side effects of treatment? @ -No Exacerbation, Progression, or Severe Exacerbation? @ -No Poses a threat to life or bodily function? How? (Chest pain, [place], HI, pneumonia, PE, COPD, DKA, ARF, appy, cholecystitis, CVA, Diverticulitis, Homicidal, Suicidal, threat to staff... and all critical care pts) @ -Yes - Lab Data Result diagrams: 11/28/23 21:29 11/28/23 21:29 Lab Results 11/28/23 11/28/23 11/28/23 Range/Units 21:29 21:29 21:29 WBC 19.0 H (3.8-10.6) k/uL RBC 4.80 (4.30-5.90) m/uL Hgb 13.3 (13.0-17.5) gm/dL Hct 41.7 (39.0-53.0) % MCV 87.0 (80.0-100.0) fL MCH 27.7 (25.0-35.0) pg MCHC 31.9 (31.0-37.0) g/dL RDW 16.3 H (11.5-15.5) % Plt Count 298 (150-450) k/uL MPV 7.6 Neutrophils % 91 % Lymphocytes % 3 % Monocytes % 4 % Eosinophils % 1 % Basophils % 0 % Neutrophils # 17.3 H (1.3-7.7) k/uL Lymphocytes # 0.6 L (1.0-4.8) k/uL Monocytes # 0.7 (0-1.0) k/uL Eosinophils # 0.2 (0-0.7) k/uL Basophils # 0.0 (0-0.2) k/uL Hypochromasia Slight Anisocytosis Slight PT 10.4 (10.0-12.5) sec INR 0.9 (<1.2) APTT 24.4 (22.0-30.0) sec Sodium 138 (137-145) mmol/L Potassium 4.2 (3.5-5.1) mmol/L Chloride 103 (98-107) mmol/L Carbon Dioxide 25 (22-30) mmol/L Anion Gap 10 mmol/L BUN 27 H (9-20) mg/dL Creatinine 0.72 (0.66-1.25) mg/dL Est GFR (CKD-EPI)AfAm >90 (>60 ml/min/1.73 sqM) Est GFR (CKD-EPI)NonAf >90 (>60 ml/min/1.73 sqM) Glucose 126 H (74-99) mg/dL Plasma Lactic Acid Son (0.7-2.0) mmol/L Calcium 9.1 (8.4-10.2) mg/dL Magnesium 2.0 (1.6-2.3) mg/dL Total Bilirubin 0.7 (0.2-1.3) mg/dL AST 24 (17-59) U/L ALT 20 (4-49) U/L Alkaline Phosphatase 94 (38-126) U/L Troponin I (0.000-0.034) ng/mL NT-Pro-B Natriuret Pep 120 pg/mL Total Protein 6.8 (6.3-8.2) g/dL Albumin 3.8 (3.5-5.0) g/dL Influenza Type A (PCR) (Not Detectd) Influenza Type B (PCR) (Not Detectd) RSV (PCR) (Not Detectd) SARS-CoV-2 (PCR) (Not Detectd) 11/28/23 11/28/23 11/28/23 Range/Units 21:29 21:29 21:29 WBC (3.8-10.6) k/uL RBC (4.30-5.90) m/uL Hgb (13.0-17.5) gm/dL Hct (39.0-53.0) % MCV (80.0-100.0) fL MCH (25.0-35.0) pg MCHC (31.0-37.0) g/dL RDW (11.5-15.5) % Plt Count (150-450) k/uL MPV Neutrophils % % Lymphocytes % % Monocytes % % Eosinophils % % Basophils % % Neutrophils # (1.3-7.7) k/uL Lymphocytes # (1.0-4.8) k/uL Monocytes # (0-1.0) k/uL Eosinophils # (0-0.7) k/uL Basophils # (0-0.2) k/uL Hypochromasia Anisocytosis PT (10.0-12.5) sec INR (<1.2) APTT (22.0-30.0) sec Sodium (137-145) mmol/L Potassium (3.5-5.1) mmol/L Chloride (98-107) mmol/L Carbon Dioxide (22-30) mmol/L Anion Gap mmol/L BUN (9-20) mg/dL Creatinine (0.66-1.25) mg/dL Est GFR (CKD-EPI)AfAm (>60 ml/min/1.73 sqM) Est GFR (CKD-EPI)NonAf (>60 ml/min/1.73 sqM) Glucose (74-99) mg/dL Plasma Lactic Acid Son 2.0 (0.7-2.0) mmol/L Calcium (8.4-10.2) mg/dL Magnesium (1.6-2.3) mg/dL Total Bilirubin (0.2-1.3) mg/dL AST (17-59) U/L ALT (4-49) U/L Alkaline Phosphatase (38-126) U/L Troponin I <0.012 (0.000-0.034) ng/mL NT-Pro-B Natriuret Pep pg/mL Total Protein (6.3-8.2) g/dL Albumin (3.5-5.0) g/dL Influenza Type A (PCR) Not Detected (Not Detectd) Influenza Type B (PCR) Not Detected (Not Detectd) RSV (PCR) Not Detected (Not Detectd) SARS-CoV-2 (PCR) Not Detected (Not Detectd) - EKG Data -: EKG Interpreted by Me EKG Comments: 12-lead Electrocardiogram Interpretation Note EKG was reviewed and interpreted by myself. 12-lead ECG performed at 2101 is interpreted by me as revealing normal sinus rhythm at a rate of 95 beats per minute. Right axis deviation. NM interval is 142 ms, QRS duration is 154 ms, QTc is 412 ms. Patient has a right bundle branch block. Which is chronic.. There were no ST or T wave abnormalities to suggest myocardial ischemia or injury. R wave progression across the precordium was satisfactory. By my interpretation this EKG is non-diagnostic for acute ischemia. Disposition Clinical Impression: COPD (chronic obstructive pulmonary disease), Pneumonia, Chronic respiratory failure with hypoxia Disposition: ADMITTED IP TO THIS HOSP Condition: Stable Referrals: Alex Robbins DO [Primary Care Provider] - 1-2 days Time of Disposition: 22:15
[2023-11-28] MEDS: SODIUM CHLORIDE 0.9% 1,000 ML IV SCH (23:53)
[2023-11-28] MEDS: PIPERACILLIN-TAZOBACTAM 3.375 GM in SODIUM CHLORIDE 0.9% 100 ML IVPB STA (23:57)
[2023-11-29] MEDS: IPRATROPIUM-ALBUTEROL 3 ML NEB INHALATION SCH (00:45)
[2023-11-29] MEDS: HEPARIN SODIUM,PORCINE 5,000 UNIT/ML 1 ML VIAL SQ SCH (01:00)
[2023-11-29] MEDS: AZITHROMYCIN 500 MG in SODIUM CHLORIDE 0.9% 250 ML IVPB STA (01:00)
[2023-11-29] MEDS: PANTOPRAZOLE 40 MG TABLET PO SCH (04:24)
[2023-11-29] MEDS: methylPREDNISolone SOD SUCCI 40 MG/ML 1 ML VIAL IV SCH (06:20)
[2023-11-29 07:02] LABS: Anisocytosis Slight; Basophils % (A) 0 %; Eosinophils % (A) 0 %; HCT 41.1 % (39.0-53.0); HGB 12.6 gm/dL (13.0-17.5); Hypochromasia Marked; Lymphocytes # (A) 0.5 k/uL (1.0-4.8); Lymphocytes % (A) 2 %; MCH 27.6 pg (25.0-35.0); MCHC 30.7 g/dL (31.0-37.0); MCV 89.9 fL (80.0-100.0); Mean Platelet Volume 6.9; Monocytes # (A) 0.4 k/uL (0-1.0); Monocytes % (A) 2 %; Neutrophils # (A) 20.7 k/uL (1.3-7.7); Neutrophils % (A) 95 %; Platelet Count 300 k/uL (150-450); RBC 4.57 m/uL (4.30-5.90); WBC 21.7 k/uL (3.8-10.6)
[2023-11-29 07:10] LABS: African American GFR (CKD) >90 (>60 ml/min/1.73 sqM); Anion Gap 9 mmol/L; Blood Urea Nitrogen 31 mg/dL (9-20); Calcium 8.7 mg/dL (8.4-10.2); Carbon Dioxide 24 mmol/L (22-30); Chloride 105 mmol/L (98-107); Glucose 150 mg/dL (74-99); Non-African American GFR(CKD) >90 (>60 ml/min/1.73 sqM); Potassium 4.7 mmol/L (3.5-5.1); Sodium 138 mmol/L (137-145)
[2023-11-29] MEDS ORDERED: CYCLOBENZAPRINE 10 MG TAB PO PRN (07:52)
--- NOTE | 2023-11-29 07:53 | P.CNPUL ---
History of Present Illness Consult date: 11/29/23 Requesting physician: Pan Meng Reason for consult: COPD Chief complaint: Shortness of breath History of present illness: I am seeing this patient in consultation today November 29, 2023 after he presented with shortness of breath, chest tightness, and wheezing. He has known history of severe oxygen dependent COPD, esophageal cancer with previous partial esophagectomy and gastric bowl, prostate cancer with previous prostatectomy. He sees Dr. Mckenzie in the pulmonary office for management of his severe chronic obstructive pulmonary disease. He normally utilizes a combination of Trelegy inhaler, DuoNebs [id number], and albuterol HFA as needed. He is oxygen dependent on 3 L nasal cannula at home. He is prednisone dependent on 10 mg every day. Most recent PFT has a FEV1 48% of predicted. Patient had recent hospitalization in October for COPD, RSV, and left lower lobe pneumonia. Patient endorses runny nose, sore throat, coughing with minimal sputum production, and i ncreasingly worsening shortness of breath over the last several days. Patient states that he has midsternal chest soreness only when coughing. Nonradiating. No lightheadedness or syncope. Has bilateral lower extremity pitting edema. He is currently sitting at the edge of the bed, on 3 L/min nasal cannula, he is tachypneic and diaphoretic. He speaks in short sentences. No evidence of CO2 narcosis. Chest x-ray on arrival was read as increased dense consolidation throughout the right lower lobe associated with minimal volume loss and therefore suggestive of right lower lobe bronchopneumonia. Should be noted the patient's had previous gastric full procedure, and the patient has a chronic right lower lobe opacity. CBC on arrival has some leukocytosis with a WBC count of 19 but is otherwise unremarkable. BMP unremarkable. Saline infusing at 75 mL/h. Troponin less than 0.012. NT proBNP 120. He is negative for influenza, RSV, COVID. Patient has been placed on empiric antibiotics. Currently afebrile. Vital signs are stable. Review of Systems REVIEW OF SYSTEMS: CONSTITUTIONAL: Denies any recent significant weight loss or weight gain. EYES: Denies change in vision. EARS, NOSE, MOUTH, THROAT: Denies headaches, denies sore throat. CARDIOVASCULAR: Denies chest pain, palpitations or syncopal episodes. Admits chronic lower extremity swelling RESPIRATORY: See HPI. GASTROINTESTINAL: Denies change in appetite, abdominal pain, nausea and vomiting, or diarrhea GENITOURINARY: Denies hematuria, denies infections. MUSKULOSKELETAL: Denies pain, denies swelling. INTEGUMENTARY: Denies rash, denies eczema. NEUROLOGICAL: Denies recent memory loss, no recent seizure activity. PSYCHIATRIC: Denies anxiety, denies depression. HEMATOLOGIC/LYMPHATIC: Denies anemia, denies enlarged lymph node Past Medical History Past Medical History: Cancer, COPD, GERD/Reflux, Hypertension Additional Past Medical History / Comment(s): Neuropathy, hx esophageal cancer treated with surgery - 2008,. prostate cancer current 10/2023 History of Any Multi-Drug Resistant Organisms: None Reported Past Surgical History: Appendectomy, Hernia Repair, Joint Replacement, Orthopedic Surgery Additional Past Surgical History / Comment(s): Bilateral elbow, bilateral wrist carpal tunnel, bilateral rotator cuff surgeryx3 , right knee arthroscopy, right knee replacement, surgery for esophageal cancer (removed part of esophagus and removed part of stomach making it into carrot shape per patient), hernia repair X4. robotic prostatectomy with bilateral stent placement and pelvic lymph node removal 08/11/20 Past Anesthesia/Blood Transfusion Reactions: Previous Problems w/ Anesthesia Additional Past Anesthesia/Blood Transfusion Reaction / Comment(s): can not lay flat- "stomach acid will come out my nose" Past Psychological History: Anxiety, Depression Additional Psychological History / Comment(s): Pt lives at home with his . Pt is normally independent. Smoking Status: Former smoker Past Alcohol Use History: None Reported Additional Past Alcohol Use History / Comment(s): Patient was a smoker one pack per day for 10 years and quit ago 40 years ago. He lives at home with his . He is retired [employer] with exposure to asbestos. There is one cat, a Great Power and a Mountain terrier in the home. Patient enjoys camping, bicycling, gardening and yard work. No recent travel outside of [place]. The patient has been camping in [place]. Past Drug Use History: None Reported - Past Family History Father Family Medical History: Cancer Additional Family Medical History / Comment(s): COLON Cancer. Mother Family Medical History: Cancer, Deep Vein Thrombosis (DVT) Additional Family Medical History / Comment(s): Brain aneurysm. Medications and Allergies Home Medications Medication Instructions Recorded Confirmed Type Omeprazole 40 mg PO HS 04/26/17 11/28/23 History cloNIDine HCL [Catapres] 0.1 mg PO BID 10/02/18 11/28/23 History Losartan Potassium 100 mg PO DAILY 03/20/19 11/28/23 History Omeprazole 20 mg PO BID 06/08/19 11/28/23 History Fluticasone/Umeclidin/Vilanter 1 puff INHALATION RT-DAILY 05/25/21 11/28/23 History [Trelegy Ellipta 200-62.5-25] Baclofen [Lioresal] 20 mg PO HS 07/04/22 11/28/23 History DULoxetine HCL [Cymbalta] 60 mg PO DAILY 07/04/22 11/28/23 History rOPINIRole HCL [Requip] 2 mg PO BID 07/04/22 11/28/23 History Albuterol Sulfate [Albuterol 2 puff INHALATION RT-QID PRN 10/23/23 11/28/23 History Sulfate Hfa] Cyclobenzaprine [Flexeril] 10 mg PO TID PRN 10/23/23 11/28/23 History Ipratropium-Albuterol Nebulize 3 ml INHALATION RT-QID PRN 10/23/23 11/28/23 History [Duoneb 0.5 mg-3 mg/3 ml Soln] Magnesium Oxide [Mag-Ox] 250 mg PO DAILY 10/23/23 11/28/23 History predniSONE 10 mg PO DAILY #0 10/29/23 11/28/23 Rx Allergies Allergy/AdvReac Type Severity Reaction Status Date / Time No Known Allergies Allergy Verified 11/28/23 23:04 Physical Exam Vitals: Vital Signs Temp Pulse Pulse Resp BP BP Pulse Ox 11/29/23 00:56 95 11/29/23 00:47 98 11/29/23 00:22 98.8 F 92 18 142/81 90 L 11/28/23 23:00 88 22 172/88 94 L 11/28/23 22:43 94 11/28/23 22:33 96 11/28/23 21:53 96 18 142/87 94 L 11/28/23 20:51 99.1 F 105 H 22 128/84 94 L Intake and Output 11/28/23 11/28/23 11/29/23 14:59 22:59 06:59 Other: Weight 99.79 kg 99.79 kg GENERAL EXAM: Alert, 68-year-old white male, in some mild respiratory distress. He is diaphoretic. He is tachypneic. He speaks in short sentences. He is on 3 L/min nasal cannula. HEAD: Normocephalic and atraumatic EYES: Normal reaction of pupils, equal size. NOSE: Clear with pink turbinates. THROAT: No erythema or exudates. NECK: No masses, no JVD. CHEST: No chest wall deformity. LUNGS: Equal air entry with end expiratory wheezes heard throughout. No crackles. No focal dullness. No tripoding or accessory muscle use. CVS: S1 and S2 normal with no audible murmur, regular rhythm. No extra heart sounds ABDOMEN: No hepatosplenomegaly, active bowel sounds, no guarding or rigidity. SPINE: No scoliosis or deformity SKIN: No rashes CENTRAL NERVOUS SYSTEM: No focal deficits, tone is normal in all 4 extremities. EXTREMITIES: There is bilateral 3+ pitting edema. No clubbing, or cyanosis. Peripheral pulses are intact. Results - Laboratory Findings CBC and BMP: 11/29/23 06:18 11/29/23 06:18 PT/INR, D-dimer PT 10.4 sec (10.0-12.5) 11/28/23 21:29 INR 0.9 (<1.2) 11/28/23 21:29 Abnormal lab findings: Abnormal Labs 11/28/23 11/28/23 21:29 21:29 WBC 19.0 H RDW 16.3 H Neutrophils # 17.3 H Lymphocytes # 0.6 L BUN 27 H Glucose 126 H - Diagnostic Findings Chest x-ray: image reviewed Assessment and Plan Assessment: Acute on chronic hypoxemic respiratory failure, secondary to acute COPD exacerbation. Chest x-ray on arrival was read as increased dense consolidation throughout the right lower lobe associated with minimal volume loss and therefore suggestive of right lower lobe bronchopneumonia. Should be noted the patient's had previous gastric pull procedure, and has a chronic right lower lobe opacity. Previous left lower lobe infiltrate resolved. Negative for influenza, RSV, COVID. Leukocytosis Severe oxygen and steroid-dependent chronic obstructive pulmonary disease Benign essential hypertension Former tobacco dependence History of prostate cancer, status post prostatectomy History of esophageal cancer with history of partial esophagectomy and gastric pull GERD without esophagitis Obesity, BMI of 31.6 kg/m Plan: Patient's medications, labs, chest x-ray reviewed. Continue supplemental oxygen, currently on 3 L/min nasal cannula, to maintain SpO2 90% or greater Continue empiric antibiotics. Procalcitonin level pending. Blood cultures and sputum culture are pending. Continue bronchodilators, Symbicort inhaler, and IV Solu-Medrol. We will continue to follow. I have personally seen and examined the patient, performed the documentation and the assessment and plan as written. Number of minutes spent on the visit:20 Time with Patient: Greater than 30
[2023-11-29] MEDS ORDERED: NON FORMULARY DRUG (Fluticasone/Umeclidin/Vilanter [Trelegy Ellipta 200-62.5-25] 1 EACH Bl INHALATION SCH (08:00)
[2023-11-29] MEDS: cloNIDine HCL 0.1 MG TAB PO SCH (08:33)
[2023-11-29] MEDS: LOSARTAN 50 MG TAB PO SCH (08:33)
[2023-11-29] MEDS: DULoxetine HCL 60 MG CAPSULE.DR PO SCH (08:33)
[2023-11-29] MEDS: MAGNESIUM OXIDE 400 MG TAB PO SCH (08:33)
[2023-11-29] MEDS: PIPERACILLIN-TAZOBACTAM 3.375 GM in SODIUM CHLORIDE 0.9% 100 ML IVPB SCH (08:34)
--- NOTE | 2023-11-29 08:46 | XR ---
EXAMINATION TYPE: XR chest 1V portable DATE OF EXAM: 11/29/2023 COMPARISON: 11/28/2023 HISTORY: Pneumonia TECHNIQUE: Single frontal view of the chest is obtained. FINDINGS: Arthropathy of the left shoulder postsurgical changes in the right. There is right-sided c onsolidation. Underlying COPD. No pleural effusion or pneumothorax. IMPRESSION: Right-sided infiltrate stable. Correlate for pneumonia. Underlying nodule not excluded. Follow to resolution.
[2023-11-29] MEDS ORDERED: NON FORMULARY DRUG (Omeprazole [Omeprazole] 20 MG Tablet.Dr) PO SCH (09:00)
[2023-11-29] MEDS ORDERED: methylPREDNISolone SOD SUCCI 40 MG/ML 1 ML VIAL IV SCH (09:00)
[2023-11-29] MEDS: SYMBICORT 160-4.5 MCG INHALER INHALATION SCH (09:14)
--- NOTE | 2023-11-29 11:52 | P.HPIM ---
History of Present Illness H&P Date: 11/29/23 Chief Complaint: Worsening dyspnea This is a 68-year-old gentleman with recent inpatient admission October 2023 for COPD, RSV and left lower lobe pneumonia with past medical history significant for severe steroid-dependent COPD ,gastroesophageal reflux disease, former nicotine dependence, esophageal cancer with surgical resection and gastric pull-through, peripheral neuropathy,prostate cancer status post prostatectomy with bilateral pelvic lymph node dissection and stent placement, hypertension, Parkinson's disease, sleep apnea and multiple other medical issues presented to the ER with 4 days of difficulty breathing, congestion, mostly nonproductive cough. Chest x-ray reported increased dense consolidation throughout the entirety right lower lobe associated with minimal volume loss and therefore suggestive of right lower lobe bronchopneumonia, in a patient with prior gastric pull procedure, chronic right lower lobe opacity possible underlying endobronchial lesion at the hilum.Negative for influenza A/B, RSV, COVID. Denies chest pain, palpitations- positive nonradiating mild chest soreness with coughing. Troponin negative x 1. afebrile, WBC 21.7, lactic acid 2. hemoglobin 12.6, platelets 300. Bicarb 24, BUN 31, creatinine 0.7. Blood sugars controlled. Review of Systems ROS Statement: Those systems with pertinent positive or pertinent negative responses have been documented in the HPI. ROS Other: All systems not noted in ROS Statement are negative. Past Medical History Past Medical History: Cancer, COPD, GERD/Reflux, Hypertension Additional Past Medical History / Comment(s): Neuropathy, hx esophageal cancer treated with surgery - 2008,. prostate cancer current 10/2023 History of Any Multi-Drug Resistant Organisms: None Reported Past Surgical History: Appendectomy, Hernia Repair, Joint Replacement, Orthopedic Surgery Additional Past Surgical History / Comment(s): Bilateral elbow, bilateral wrist carpal tunnel, bilateral rotator cuff surgeryx3 , right knee arthroscopy, right knee replacement, surgery for esophageal cancer (removed part of esophagus and removed part of stomach making it into carrot shape per patient), hernia repair X4. robotic prostatectomy with bilateral stent placement and pelvic lymph node removal 08/11/20 Past Anesthesia/Blood Transfusion Reactions: Previous Problems w/ Anesthesia Additional Past Anesthesia/Blood Transfusion Reaction / Comment(s): can not lay flat- "stomach acid will come out my nose" Past Psychological History: Anxiety, Depression Additional Psychological History / Comment(s): Pt lives at home with his . Pt is normally independent. Smoking Status: Former smoker Past Alcohol Use History: None Reported Additional Past Alcohol Use History / Comment(s): Patient was a smoker one pack per day for 10 years and quit ago 40 years ago. He lives at home with his . He is retired [employer] with exposure to asbestos. There is one cat, a Great Power and a Mountain terrier in the home. Patient enjoys camping, bicycling, gardening and yard work. No recent travel outside of [place]. The patient has been camping in [place]. Past Drug Use History: None Reported - Past Family History Father Family Medical History: Cancer Additional Family Medical History / Comment(s): COLON Cancer. Mother Family Medical History: Cancer, Deep Vein Thrombosis (DVT) Additional Family Medical History / Comment(s): Brain aneurysm. Medications and Allergies Home Medications Medication Instructions Recorded Confirmed Type Omeprazole 40 mg PO HS 04/26/17 11/28/23 History cloNIDine HCL [Catapres] 0.1 mg PO BID 10/02/18 11/28/23 History Losartan Potassium 100 mg PO DAILY 03/20/19 11/28/23 History Omeprazole 20 mg PO BID 06/08/19 11/28/23 History Fluticasone/Umeclidin/Vilanter 1 puff INHALATION RT-DAILY 05/25/21 11/28/23 History [Trelegy Ellipta 200-62.5-25] Baclofen [Lioresal] 20 mg PO HS 07/04/22 11/28/23 History DULoxetine HCL [Cymbalta] 60 mg PO DAILY 07/04/22 11/28/23 History rOPINIRole HCL [Requip] 2 mg PO BID 07/04/22 11/28/23 History Albuterol Sulfate [Albuterol 2 puff INHALATION RT-QID PRN 10/23/23 11/28/23 History Sulfate Hfa] Cyclobenzaprine [Flexeril] 10 mg PO TID PRN 10/23/23 11/28/23 History Ipratropium-Albuterol Nebulize 3 ml INHALATION RT-QID PRN 10/23/23 11/28/23 History [Duoneb 0.5 mg-3 mg/3 ml Soln] Magnesium Oxide [Mag-Ox] 250 mg PO DAILY 10/23/23 11/28/23 History predniSONE 10 mg PO DAILY #0 10/29/23 11/28/23 Rx Allergies Allergy/AdvReac Type Severity Reaction Status Date / Time No Known Allergies Allergy Verified 11/28/23 23:04 Physical Exam Vitals: Vital Signs Temp Pulse Pulse Resp BP BP Pulse Ox 11/29/23 09:24 92 11/29/23 09:17 93 L 11/29/23 09:15 89 11/29/23 07:00 98.3 F 107 H 27 H 169/84 93 L 11/29/23 00:56 95 11/29/23 00:47 98 11/29/23 00:22 98.8 F 92 18 142/81 90 L 11/28/23 23:00 88 22 172/88 94 L 11/28/23 22:43 94 11/28/23 22:33 96 11/28/23 21:53 96 18 142/87 94 L 11/28/23 20:51 99.1 F 105 H 22 128/84 94 L Intake and Output 11/28/23 11/29/23 11/29/23 22:59 06:59 14:59 Other: # Voids 2 Weight 99.79 kg 99.79 kg - Exam PHYSICAL EXAM: VITAL SIGNS: [As above] GENERAL: Alert and oriented 3, Sitting up at side of bed, no acute distress. HEENT: Normocephalic, atraumatic, Conjunctivae normal. eyes normal. MMM. NECK: Supple, No JVD. CARDIOVASCULAR: S1, S2 regular. No murmur RESPIRATION: Breath sounds diminished in the bases. Bilateral expiratory wheezing with increased congestion noted on the right. ABDOMEN: Soft, nontender . No guarding. no masses palpable. No ascites, No hepatosplenomegaly.Bowel sounds heard. LEGS: No edema. no swelling. NERVOUS SYSTEM: Cranial N 2-12 grossly normal. No focal deficits. Strength and sensation grossly intact. Skin: Warm and dry, no rash Results CBC & Chem 7: 11/29/23 06:18 11/29/23 06:18 Labs: Abnormal Lab Results - Last 24 Hours (Table) 11/28/23 11/28/23 11/29/23 Range/Units 21:29 21:29 06:18 WBC 19.0 H 21.7 H (3.8-10.6) k/uL Hgb 12.6 L (13.0-17.5) gm/dL MCHC 30.7 L (31.0-37.0) g/dL RDW 16.3 H 16.0 H (11.5-15.5) % Neutrophils # 17.3 H 20.7 H (1.3-7.7) k/uL Lymphocytes # 0.6 L 0.5 L (1.0-4.8) k/uL BUN 27 H (9-20) mg/dL Glucose 126 H (74-99) mg/dL 11/29/23 Range/Units 06:18 WBC (3.8-10.6) k/uL Hgb (13.0-17.5) gm/dL MCHC (31.0-37.0) g/dL RDW (11.5-15.5) % Neutrophils # (1.3-7.7) k/uL Lymphocytes # (1.0-4.8) k/uL BUN 31 H (9-20) mg/dL Glucose 150 H (74-99) mg/dL Thrombosis Risk Factor Assmnt - Choose All That Apply Any of the Below Risk Factors Present?: Yes Each Factor Represents 1 point: Abnormal pulmonary function (COPD), Serious lung disease incl. pneumonia (< 1month), Swollen legs (current) Other Risk Factors: Yes Each Risk Factor Represents 2 Points: Age 61-74 years, Malignancy Other congenital or acquired thrombophilia - If yes, enter type in comment: No Thrombosis Risk Factor Assessment Total Risk Factor Score: 7 Thrombosis Risk Factor Assessment Level: High Risk Assessment and Plan Assessment: Acute COPD exacerbation .chest x-ray suggest increased dense consolidation throughout entirety of right lower lobe, possible right lower lobe bronchopneumonia, in a patient with history of chronic right lower lobe opacity, prior gastric pull procedure. Pulmonary following. Chronic hypoxic respiratory failure, on 3 L nasal cannula at home Leukocytosis Severe COPD, steroid-dependent Hypertension, History of esophageal cancer with history of partial esophagectomy Former nicotine dependence The history of prostate cancer status post prostatectomy Obesity, BMI 32 Plan: Continue on current medication regimen, monitoring and symptomatic treatment. Sputum culture pending. Aggressive pulmonary toileting with nebulized bronchodilators Pulmicort, steroids, antibiotics. Pulmonary consult in place, recommendations noted and appreciated. Protonix for GI prophylaxis. The impression and plan of care has been dictated as directed. : I performed a history and examination of this patient, discussed the same with the dictator. I agree with the dictator's note ,documented as a scribe. Any additional findings or plans will be noted.
[2023-11-29 13:37] VITALS: BMI 31.5
--- NOTE | 2023-11-29 14:51 | P.CNPUL ---
History of Present Illness Consult date: 11/29/23 Reason for consult: dyspnea History of present illness: On 11/29/2023, I am seeing this patient in consultation for worsening shortness of breath and COPD exacerbation. The patient is known to me from the office. The patient is known to have COPD and the patient has a baseline FEV1 of 48% of predicted and the patient has been utilizing Trelegy Ellipta on outpatient basis as maintenance and albuterol HFA on an as-needed basis. The patient also has previous history of esophageal cancer and the patient has undergone esophageal surgery with gastric polyp. The patient has history of prostate cancer with a previous prostatectomy. The patient is presenting with worsening shortness of breath cough chest tightness chest wheezing and congestion. This has been going on for several days and the patient got to the point where he was unable to perform activities of daily life. Based on that, he came into the hospital. He was placed on oxygen and currently is on 3 L of O2 nasal cannula to maintain saturation above 90%. The viral panel has been negative including influenza, COVID-19 and RSV and the patient's procalcitonin level is at 0.06. White cell count was elevated at 21.7 with a hemoglobin of 12.6 and a platelet count of 300. Coagulation profile is within normal and electrolytes are within normal limits. Chest x-ray is consistent with previous history of esophageal surgery and gastric polyp. There is a chronic right-sided infiltrate which is essentially stable. No clear indication for pneumonia. The patient has underl felicia COPD. Otherwise, the patient has no altered mentation. No hemoptysis. No pleurisy. No swelling in lower extremities. No other complaints for now. The patient was started on a combination of Zosyn and Zithromax. The patient is also on albuterol nebulized treatments [id number] in combination with appropriate ipratropium bromide and the patient is on IV Solu-Medrol. Review of Systems Acute dyspnea, secondary to acute COVID infection. Chest x-ray shows no acute infiltrates or evidence of COVID-pneumonia. Squamous cell lung carcinoma, involving the right upper lobe and right paratracheal lymph node, diagnosed on 10/03/2023 with robotic Ion bronchoscopy and EBUS. Has not started treatment yet. Chronic obstructive pulmonary disease, stable Acute on chronic kidney disease, possibly secondary to dehydration and reduced oral intake Remote history of metastatic breast cancer, status post stem cell transplant and follow-up chemotherapy, she is BRCA2 positive and has had bilateral mastectomy History of non-Hodgkin's lymphoma, discovered as lung nodule of the left upper lobe and underwent wedge resection at outside facility Coronary artery disease, with previous history of CABG Severe ischemic cardiomyopathy, with a baseline ejection fraction of 20 to 35%, status post AICD/pacemaker History of hypertension History of hyperlipidemia Never smoker Past Medical History Past Medical History: Cancer, COPD, GERD/Reflux, Hypertension Additional Past Medical History / Comment(s): Neuropathy, hx esophageal cancer treated with surgery - 2008,. prostate cancer current 10/2023 History of Any Multi-Drug Resistant Organisms: None Reported Past Surgical History: Appendectomy, Hernia Repair, Joint Replacement, Orthopedic Surgery Additional Past Surgical History / Comment(s): Bilateral elbow, bilateral wrist carpal tunnel, bilateral rotator cuff surgeryx3 , right knee arthroscopy, right knee replacement, surgery for esophageal cancer (removed part of esophagus and removed part of stomach making it into carrot shape per patient), hernia repair X4. robotic prostatectomy with bilateral stent placement and pelvic lymph node removal 08/11/20 Past Anesthesia/Blood Transfusion Reactions: Previous Problems w/ Anesthesia Additional Past Anesthesia/Blood Transfusion Reaction / Comment(s): can not lay flat- "stomach acid will come out my nose" Past Psychological History: Anxiety, Depression Additional Psychological History / Comment(s): Pt lives at home with his . Pt is normally independent. Smoking Status: Former smoker Past Alcohol Use History: None Reported Additional Past Alcohol Use History / Comment(s): Patient was a smoker one pack per day for 10 years and quit ago 40 years ago. He lives at home with his . He is retired [employer] with exposure to asbestos. There is one cat, a Great Power and a Mountain terrier in the home. Patient enjoys camping, bicycling, gardening and yard work. No recent travel outside of [place]. The patient has been camping in [place]. Past Drug Use History: None Reported - Past Family History Father Family Medical History: Cancer Additional Family Medical History / Comment(s): COLON Cancer. Mother Family Medical History: Cancer, Deep Vein Thrombosis (DVT) Additional Family Medical History / Comment(s): Brain aneurysm. Medications and Allergies Home Medications Medication Instructions Recorded Confirmed Type Omeprazole 40 mg PO HS 04/26/17 11/28/23 History cloNIDine HCL [Catapres] 0.1 mg PO BID 10/02/18 11/28/23 History Losartan Potassium 100 mg PO DAILY 03/20/19 11/28/23 History Omeprazole 20 mg PO BID 06/08/19 11/28/23 History Fluticasone/Umeclidin/Vilanter 1 puff INHALATION RT-DAILY 05/25/21 11/28/23 History [Trelegy Ellipta 200-62.5-25] Baclofen [Lioresal] 20 mg PO HS 07/04/22 11/28/23 History DULoxetine HCL [Cymbalta] 60 mg PO DAILY 07/04/22 11/28/23 History rOPINIRole HCL [Requip] 2 mg PO BID 07/04/22 11/28/23 History Albuterol Sulfate [Albuterol 2 puff INHALATION RT-QID PRN 10/23/23 11/28/23 History Sulfate Hfa] Cyclobenzaprine [Flexeril] 10 mg PO TID PRN 10/23/23 11/28/23 History Ipratropium-Albuterol Nebulize 3 ml INHALATION RT-QID PRN 10/23/23 11/28/23 History [Duoneb 0.5 mg-3 mg/3 ml Soln] Magnesium Oxide [Mag-Ox] 250 mg PO DAILY 10/23/23 11/28/23 History predniSONE 10 mg PO DAILY #0 10/29/23 11/28/23 Rx Allergies Allergy/AdvReac Type Severity Reaction Status Date / Time No Known Allergies Allergy Verified 11/28/23 23:04 Physical Exam Vitals: Vital Signs Temp Pulse Pulse Resp BP BP Pulse Ox 11/29/23 09:24 92 11/29/23 09:17 93 L 11/29/23 09:15 89 11/29/23 07:00 98.3 F 107 H 27 H 169/84 93 L 11/29/23 00:56 95 11/29/23 00:47 98 11/29/23 00:22 98.8 F 92 18 142/81 90 L 11/28/23 23:00 88 22 172/88 94 L 11/28/23 22:43 94 11/28/23 22:33 96 11/28/23 21:53 96 18 142/87 94 L 11/28/23 20:51 99.1 F 105 H 22 128/84 94 L Intake and Output 11/28/23 11/29/23 11/29/23 22:59 06:59 14:59 Other: # Voids 2 Weight 99.79 kg 99.79 kg GENERAL EXAM: Alert, 68-year-old white male, in some mild respiratory distress. He is diaphoretic. He is tachypneic. He speaks in short sentences. He is on 3 L/min nasal cannula. HEAD: Normocephalic and atraumatic EYES: Normal reaction of pupils, equal size. NOSE: Clear with pink turbinates. THROAT: No erythema or exudates. NECK: No masses, no JVD. CHEST: No chest wall deformity. LUNGS: Equal air entry with end expiratory wheezes heard throughout. No crackles. No focal dullness. No tripoding or accessory muscle use. CVS: S1 and S2 normal with no audible murmur, regular rhythm. No extra heart sounds ABDOMEN: No hepatosplenomegaly, active bowel sounds, no guarding or rigidity. SPINE: No scoliosis or deformity SKIN: No rashes CENTRAL NERVOUS SYSTEM: No focal deficits, tone is normal in all 4 extremities. EXTREMITIES: There is bilateral 3+ pitting edema. No clubbing, or cyanosis. Peripheral pulses are intact. Results - Laboratory Findings CBC and BMP: 11/29/23 06:18 11/29/23 06:18 PT/INR, D-dimer PT 10.4 sec (10.0-12.5) 11/28/23 21:29 INR 0.9 (<1.2) 11/28/23 21:29 Abnormal lab findings: Abnormal Labs 11/28/23 11/28/23 11/29/23 21:29 21:29 06:18 WBC 19.0 H 21.7 H Hgb 12.6 L MCHC 30.7 L RDW 16.3 H 16.0 H Neutrophils # 17.3 H 20.7 H Lymphocytes # 0.6 L 0.5 L BUN 27 H Glucose 126 H 11/29/23 06:18 WBC Hgb MCHC RDW Neutrophils # Lymphocytes # BUN 31 H Glucose 150 H - Diagnostic Findings Chest x-ray: image reviewed Assessment and Plan Plan: Acute exacerbation of COPD, the exact trigger is not clear. Could be viral. The patient's procalcitonin level is within normal limits. The initial viral panel came back negative for influenza RSV and COVID-19. Other viruses cannot be completely ruled out. Chest x-ray is free of any acute pulm infiltrates is consistent with previous gastric surgery/Jim following esophageal resection Acute hypoxic respiratory failure the patient is currently on 3 L O2 nasal cannula Acute leukocytosis likely secondary to above Previous history of COPD with an FEV1 of 48% of predicted at baseline. The patient had a recent hospitalization in October for the same and the patient was positive for RSV infection and at that time he was supported with a BiPAP and subsequently his condition was further optimized. Noted the patient has been maintained on Trelegy Ellipta on outpatient basis as maintenance for COPD Recent hospitalization on for an acute stroke exacerbation on 10/24/2023 and this was attributed to an acute RSV infection History of esophageal cancer with a esophagectomy and gastric polyp History of prostate cancer with a previous prostatectomy Hypertension Peripheral neuropathy Acid reflux secondary to above Plan Continue DuoNeb nebulizer treatments [id number] 4 times a day IV Solu-Medrol 60 mg every 6 hours Cover the patient with Zosyn and this will also cover the patient for any potential aspiration especially with his previous history of esophagectomy and gastric polyp. Also cover the patient with Zithromax as an empiric antibiotic coverage. The possibility of a bacterial infection is considered to be less likely. Procalcitonin level is negative. The viral screen is also negative. The patient uses Trelegy Ellipta from home Utilized home medications Titrate oxygen flow to maintain saturation above 90% Will continue to follow.
[2023-11-29] MEDS ORDERED: NON FORMULARY DRUG (Omeprazole [Omeprazole] 40 MG Capsule.Dr) PO SCH (21:00)
[2023-11-29] MEDS: BACLOFEN 10 MG TAB PO SCH (21:14)
[2023-11-29] MEDS: AZITHROMYCIN 500 MG in SODIUM CHLORIDE 0.9% 250 ML IVPB SCH (22:52)
--- NOTE | 2023-11-30 12:01 | P.PN ---
Subjective Progress Note Date: 11/30/23 On 11/29/2023, I am seeing this patient in consultation for worsening shortness of breath and COPD exacerbation. The patient is known to me from the office. The patient is known to have COPD and the patient has a baseline FEV1 of 48% of predicted and the patient has been utilizing Trelegy Ellipta on outpatient basis as maintenance and albuterol HFA on an as-needed basis. The patient also has previous history of esophageal cancer and the patient has undergone esophageal surgery with gastric polyp. The patient has history of prostate cancer with a previous prostatectomy. The patient is presenting with worsening shortness of breath cough chest tightness chest wheezing and congestion. This has been going on for several days and the patient got to the point where he was unable to perform activities of daily life. Based on that, he came into the hospital. He was placed on oxygen and currently is on 3 L of O2 nasal cannula to maintain saturation above 90%. The viral panel has been negative including influenza, COVID-19 and RSV and the patient's procalcitonin level is at 0.06. White cell count was elevated at 21.7 with a hemoglobin of 12.6 and a platelet count of 300. Coagulation profile is within normal and electrolytes are within normal limits. Chest x-ray is consistent with previous history of esophageal surgery and gastric polyp. There is a chronic right-sided infiltrate which is essentially stable. No clear indication for pneumonia. The patient has underlying COPD. Otherwise, the patient has no altered mentation. No hemoptysis. No pleurisy. No swelling in lower extremities. No other complaints for now. The patient was started on a combination of Zosyn and Zithr omax. The patient is also on albuterol nebulized treatments [id number] in combination with appropriate ipratropium bromide and the patient is on IV Solu- Medrol. On today's evaluation of 11/30/2023, the patient is feeling better. Less short of breath bronchospastic and wheezy compared to yesterday the patient was hospitalized for an acute stroke exacerbation. We were able to collect a sputum sample. Awaiting the final cultures. The blood cultures still pending for now. The patient was secondary 21.7 with a hemoglobin 12.6 and the BUN is 31 potassium 0.7 and his sodium level is 138. Procalcitonin level was low at 0.06. Viral panel was negative. Legionella urine antigen was negative.The patient is currently on 3 sets of O2 nasal cannula with a pulse ox of 96%. Breathing is no nlabored. Objective - Vital Signs Vital signs: Vital Signs Temp 97.9 F 11/30/23 07:02 Pulse 92 11/30/23 08:21 Resp 17 11/30/23 07:02 BP 127/68 11/30/23 07:02 Pulse Ox 96 11/30/23 08:06 FiO2 Intake & Output 11/29/23 11/30/23 11/30/23 18:59 06:59 18:59 Weight 99.79 kg Other: Voiding Method Toilet # Voids 2 4 - Exam GENERAL EXAM: Alert, 68-year-old white male, in some mild respiratory distress. He is diaphoretic. He is tachypneic. He speaks in short sentences. He is on 3 L/min nasal cannula. HEAD: Normocephalic and atraumatic EYES: Normal reaction of pupils, equal size. NOSE: Clear with pink turbinates. THROAT: No erythema or exudates. NECK: No masses, no JVD. CHEST: No chest wall deformity. LUNGS: Equal air entry with end expiratory wheezes heard throughout. No crackles. No focal dullness. No tripoding or accessory muscle use. CVS: S1 and S2 normal with no audible murmur, regular rhythm. No extra heart sounds ABDOMEN: No hepatosplenomegaly, active bowel sounds, no guarding or rigidity. SPINE: No scoliosis or deformity SKIN: No rashes CENTRAL NERVOUS SYSTEM: No focal deficits, tone is normal in all 4 extremities. EXTREMITIES: There is bilateral 3+ pitting edema. No clubbing, or cyanosis. Peripheral pulses are intact. - Labs CBC & Chem 7: 11/29/23 06:18 11/29/23 06:18 Labs: Microbiology - Last 24 Hours (Table) 11/29/23 08:45 Gram Stain - Preliminary Sputum 11/29/23 00:00 Blood Culture - Preliminary Blood 11/28/23 23:45 Blood Culture - Preliminary Blood Assessment and Plan Plan: Acute exacerbation of COPD, the exact trigger is not clear. Could be viral. The patient's procalcitonin level is within normal limits. The initial viral panel came back negative for influenza RSV and COVID-19. Other viruses cannot be completely ruled out. Chest x-ray is free of any acute pulm infiltrates is consistent with previous gastric surgery/Jim following esophageal resection Acute hypoxic respiratory failure the patient is currently on 3 L O2 nasal cannula Acute leukocytosis likely secondary to above Previous history of COPD with an FEV1 of 48% of predicted at baseline. The patient had a recent hospitalization in October for the same and the patient was positive for RSV infection and at that time he was supported with a BiPAP and subsequently his condition was further optimized. Noted the patient has been maintained on Trelegy Ellipta on outpatient basis as maintenance for COPD Recent hospitalization on for an acute stroke exacerbation on 10/24/2023 and this was attributed to an acute RSV infection History of esophageal cancer with a esophagectomy and gastric polyp History of prostate cancer with a previous prostatectomy Hypertension Peripheral neuropathy Acid reflux secondary to above Plan Clinically improving and awaiting sputum Gram stain and culture and the blood culture Right second remains elevated Continue same treatment Continue DuoNeb nebulizer treatments [id number]-[id number] 4 times a day IV Solu-Medrol 60 mg every 6 hours Cover the patient with Zosyn and this will also cover the patient for any potential aspiration especially with his previous history of esophagectomy and gastric polyp. Also cover the patient with Zithromax as an empiric antibiotic coverage. The possibility of a bacterial infection is considered to be less likely. Procalcitonin level is negative. The viral screen is also negative. The patient uses Trelegy Ellipta from home Utilized home medications Titrate oxygen flow to maintain saturation above 90% Will continue to follow.
[2023-11-30 16:33] LABS: Glucose,Whole Blood 168 mg/dL (70-110)
[2023-11-30 20:10] LABS: Glucose,Whole Blood 167 mg/dL (70-110)
[2023-12-01 01:32] VITALS: RESP 16
--- NOTE | 2023-12-01 05:57 | PN ---
PROGRESS NOTE CHIEF COMPLAINT: Shortness of breath and cough. I am covering for Dr. Robbins. SUBJECTIVE: This is a 68-year-old gentleman with a past medical history of multiple medical problems, COPD, GERD, was admitted with significant pneumonia on the right side, possibly aspiration is being considered. The patient had a surgery of esophageal cancer and esophagectomy. No chest pain. No palpitation. PAST MEDICAL HISTORY: Reviewed. White count is still elevated. REVIEW OF SYSTEMS: 14-point review of systems is negative as mentioned. CURRENT MEDICATIONS: Reviewed and include Zosyn. reviewed. PHYSICAL EXAMINATION: VITAL SIGNS: Pulse 81, blood pressure n, respirations 17. HEENT: Conjunctivae normal. NECK: No jugular venous distention. CARDIOVASCULAR: S1, S2. RESPIRATION: Bilateral scattered rhonchi and crackles. ABDOMEN: Soft. NERVOUS SYSTEM: Nonfocal. SKIN: No ulcer, rash, or bleeding. JOINTS: n. LABORATORY DATA: WBC 21.7. ASSESSMENT: 1. Acute aspiration pneumonia, right. 2. Chronic obstructive pulmonary disease, acute exacerbation. 3. Chronic hypoxic respiratory failure. 4. Hypertension. 5. History of esophageal cancer with partial esophagectomy. 6. History of nicotine dependence. 7. History of prostate cancer. 8. Elevated WBC. 9. Multiple complex medical issues. RECOMMENDATIONS AND DISCUSSION: This is a 68-year-old gentleman who presented with multiple complex medical issues. At this time, the patient has significant pneumonic process going on. The patient was given antibiotics. The patient is keen on going home, but however, I would recommend to continue with IV antibiotics and bronchodilators and closely follow with Dr. Mckenzie. Steroids also had been given. Repeat labs. See orders. Cultures are negative so far, but however prognosis remains guarded because extensive nature of the pneumonia on the right side and persistence of the shadows. We will continue to monitor. Guarded prognosis. Further recommendations to follow. Also recommend modified barium swallow with speech also. MMODL / IJN: [id number] / MTDD
[2023-12-01 06:07] LABS: Glucose,Whole Blood 136 mg/dL (70-110)
[2023-12-01] MEDS: PIPERACILLIN-TAZOBACTAM 3.375 GM in SODIUM CHLORIDE 0.9% 100 ML IVPB SCH (09:17)
[2023-12-01 09:31] LABS: Basophils # (A) 0.02 X 10*3/uL (0.00-0.10); Basophils % (A) 0.1 %; Eosinophils # (A) 0 X 10*3/uL (0.04-0.35); Eosinophils % (A) 0 %; HCT 37.4 % (39.6-50.0); HGB 11.2 g/dL (13.0-17.0); Lymphocytes # (A) 0.27 X 10*3/uL (0.90-5.00); Lymphocytes % (A) 1.6 %; MCH 27.3 pg (27.0-32.0); MCHC 29.9 g/dL (32.0-37.0); Mean Platelet Volume 9.3 FL (9.5-12.2); Monocytes # (A) 0.39 X 10*3/uL (0.20-1.00); Monocytes % (A) 2.3 %; NRBC Per 100 WBC 0 X 10*3/uL (0.00-0.01); Neutrophils # (A) 15.92 X 10*3/uL (1.80-7.70); Neutrophils % (A) 94.8 %; Platelet Count 275 X 10*3/uL (140-440); RBC 4.11 X 10*6/uL (4.40-5.60); RDW 16.2 % (11.5-14.5); WBC 16.81 X 10*3/uL (4.50-10.00)
[2023-12-01 09:53] LABS: BUN/Creat Ratio 35.25 Ratio (12.00-20.00); Blood Urea Nitrogen 28.2 mg/dL (9.0-27.0); Calcium 8.6 mg/dL (8.7-10.3); Carbon Dioxide 23.6 mmol/L (21.6-31.8); Chloride 106 mmol/L (96-109); Glucose 130 mg/dL (70-110); Potassium 4.1 mmol/L (3.5-5.5); Sodium 143 mmol/L (135-145)
[2023-12-01 11:32] LABS: Glucose,Whole Blood 139 mg/dL (70-110)
--- NOTE | 2023-12-01 13:35 | P.PN ---
Subjective Progress Note Date: 12/01/23 On 11/29/2023, I am seeing this patient in consultation for worsening shortness of breath and COPD exacerbation. The patient is known to me from the office. The patient is known to have COPD and the patient has a baseline FEV1 of 48% of predicted and the patient has been utilizing Trelegy Ellipta on outpatient basis as maintenance and albuterol HFA on an as-needed basis. The patient also has previous history of esophageal cancer and the patient has undergone esophageal surgery with gastric polyp. The patient has history of prostate cancer with a previous prostatectomy. The patient is presenting with worsening shortness of breath cough chest tightness chest wheezing and congestion. This has been going on for several days and the patient got to the point where he was unable to perform activities of daily life. Based on that, he came into the hospital. He was placed on oxygen and currently is on 3 L of O2 nasal cannula to maintain saturation above 90%. The viral panel has been negative including influenza, COVID-19 and RSV and the patient's procalcitonin level is at 0.06. White cell count was elevated at 21.7 with a hemoglobin of 12.6 and a platelet count of 300. Coagulation profile is within normal and electrolytes are within normal limits. Chest x-ray is consistent with previous history of esophageal surgery and gastric polyp. There is a chronic right-sided infiltrate which is essentially stable. No clear indication for pneumonia. The patient has underlying COPD. Otherwise, the patient has no altered mentation. No hemoptysis. No pleurisy. No swelling in lower extremities. No other complaints for now. The patient was started on a combination of Zosyn and Zithr omax. The patient is also on albuterol nebulized treatments [id number] in combination with appropriate ipratropium bromide and the patient is on IV Solu- Medrol. On today's evaluation of 11/30/2023, the patient is feeling better. Less short of breath bronchospastic and wheezy compared to yesterday the patient was hospitalized for an acute stroke exacerbation. We were able to collect a sputum sample. Awaiting the final cultures. The blood cultures still pending for now. The patient was secondary 21.7 with a hemoglobin 12.6 and the BUN is 31 potassium 0.7 and his sodium level is 138. Procalcitonin level was low at 0.06. Viral panel was negative. Legionella urine antigen was negative.The patient is currently on 3 sets of O2 nasal cannula with a pulse ox of 96%. Breathing is no nlabored. 11/21/2023, the patient is feeling much better. No specific complaints. Cough and congestion has subsided significantly. Remains on DuoNeb nebulizer treatments and IV Solu-Medrol the patient is also on IV Zosyn. No significant cough or chest tightness or wheezing on today's evaluation the patient is ambulating. Remains on IV fluids at 75 cc an hour of normal saline. Also, the patient's white cell count at 16.8 with a hemoglobin of 11.2 and a platelet count of 275 and the patient also has a BUN of 28 with heart of 0.8 and a sodium level of 143. The patient is currently on 3 stable to nasal cannula with pulse ox of 96% Objective - Vital Signs Vital signs: Vital Signs Temp 97.6 F 12/01/23 07:20 Pulse 88 12/01/23 08:50 Resp 16 12/01/23 07:20 BP 151/89 12/01/23 07:20 Pulse Ox 96 12/01/23 08:31 FiO2 Intake & Output 11/30/23 12/01/23 12/01/23 18:59 06:59 18:59 Other: Voiding Method Toilet # Voids 2 3 - Exam GENERAL EXAM: Alert, 68-year-old white male, in some mild respiratory distress. He is diaphoretic. He is tachypneic. He speaks in short sentences. He is on 3 L/min nasal cannula. HEAD: Normocephalic and atraumatic EYES: Normal reaction of pupils, equal size. NOSE: Clear with pink turbinates. THROAT: No erythema or exudates. NECK: No masses, no JVD. CHEST: No chest wall deformity. LUNGS: Equal air entry with end expiratory wheezes heard throughout. No crackles. No focal dullness. No tripoding or accessory muscle use. CVS: S1 and S2 normal with no audible murmur, regular rhythm. No extra heart sounds ABDOMEN: No hepatosplenomegaly, active bowel sounds, no guarding or rigidity. SPINE: No scoliosis or deformity SKIN: No rashes CENTRAL NERVOUS SYSTEM: No focal deficits, tone is normal in all 4 extremities. EXTREMITIES: There is bilateral 3+ pitting edema. No clubbing, or cyanosis. Peripheral pulses are intact. - Labs CBC & Chem 7: 12/01/23 05:36 12/01/23 05:36 Labs: Abnormal Lab Results - Last 24 Hours (Table) 11/30/23 11/30/23 12/01/23 Range/Units 16:31 20:09 05:36 WBC 16.81 H (4.50-10.00) X 10*3/uL RBC 4.11 L (4.40-5.60) X 10*6/uL Hgb 11.2 L (13.0-17.0) g/dL Hct 37.4 L (39.6-50.0) % MCHC 29.9 L (32.0-37.0) g/dL RDW 16.2 H (11.5-14.5) % MPV 9.3 L (9.5-12.2) FL Immature Gran # 0.21 H (0.00-0.04) X 10*3/uL Neutrophils # 15.92 H (1.80-7.70) X 10*3/uL Lymphocytes # 0.27 L (0.90-5.00) X 10*3/uL Eosinophils # 0 L (0.04-0.35) X 10*3/uL Anion Gap (4.00-12.00) mmol/L BUN (9.0-27.0) mg/dL BUN/Creatinine Ratio (12.00-20.00) Ratio Glucose (70-110) mg/dL POC Glucose (mg/dL) 168 H 167 H (70-110) mg/dL Calcium (8.7-10.3) mg/dL 12/01/23 12/01/23 Range/Units 05:36 06:03 WBC (4.50-10.00) X 10*3/uL RBC (4.40-5.60) X 10*6/uL Hgb (13.0-17.0) g/dL Hct (39.6-50.0) % MCHC (32.0-37.0) g/dL RDW (11.5-14.5) % MPV (9.5-12.2) FL Immature Gran # (0.00-0.04) X 10*3/uL Neutrophils # (1.80-7.70) X 10*3/uL Lymphocytes # (0.90-5.00) X 10*3/uL Eosinophils # (0.04-0.35) X 10*3/uL Anion Gap 13.40 H (4.00-12.00) mmol/L BUN 28.2 H (9.0-27.0) mg/dL BUN/Creatinine Ratio 35.25 H (12.00-20.00) Ratio Glucose 130 H (70-110) mg/dL POC Glucose (mg/dL) 136 H (70-110) mg/dL Calcium 8.6 L (8.7-10.3) mg/dL Microbiology - Last 24 Hours (Table) 11/29/23 00:00 Blood Culture - Preliminary Blood 11/28/23 23:45 Blood Culture - Preliminary Blood 11/29/23 08:45 Gram Stain - Preliminary Sputum Assessment and Plan Plan: Acute exacerbation of COPD, the exact trigger is not clear. Could be viral. The patient's procalcitonin level is within normal limits. The initial viral panel came back negative for influenza RSV and COVID-19. Other viruses cannot be completely ruled out. Chest x-ray is free of any acute pulm infiltrates is consistent with previous gastric surgery/Jim following esophageal resection Acute hypoxic respiratory failure the patient is currently on 3 L O2 nasal cannula Acute leukocytosis likely secondary to above Previous history of COPD with an FEV1 of 48% of predicted at baseline. The [facility] had a recent hospitalization in October for the same and the patient was positive for RSV infection and at that time he was supported with a BiPAP and subsequently his condition was further optimized. Noted the patient has been maintained on Trelegy Ellipta on outpatient basis as maintenance for COPD Recent hospitalization on for an acute stroke exacerbation on 10/24/2023 and this was attributed to an acute RSV infection History of esophageal cancer with a esophagectomy and gastric polyp History of prostate cancer with a previous prostatectomy Hypertension Peripheral neuropathy Acid reflux secondary to above Plan Clinically much improved The white cell count is improving Continue same treatment Continue DuoNeb nebulizer treatments [id number] 4 times a day Prednisone burst taper at time of discharge Cover the patient with Zosyn and this will also cover the patient for any potential aspiration especially with his previous history of esophagectomy and gastric polyp. Also cover the patient with Zithromax as an empiric antibiotic coverage. The possibility of a bacterial infection is considered to be less likely. Procalcitonin level is negative. The viral screen is also negative., Considered a course of Augmentin at time of discharge The patient uses Trelegy Ellipta from home Utilized home medications Titrate oxygen flow to maintain saturation above 90% Will continue to follow.
[2023-12-01 13:39] VITALS: BP 144/79; PULSE 88; TEMP 98.5
--- NOTE | 2023-12-01 16:13 | DS ---
DISCHARGE SUMMARY FINAL DIAGNOSES: 1. Acute aspiration pneumonia, right. 2. Chronic obstructive pulmonary disease acute exacerbation. 3. Chronic hypoxic respiratory failure. 4. Hypertension. 5. History of cervical cancer with partial esophagectomy. 6. History of nicotine dependence. DISCHARGE DISPOSITION: The patient will be discharged in stable condition and guarded prognosis. Dr. Mckenzie cleared the patient for discharge. HISTORY OF PRESENT ILLNESS: This is a 68-year-old gentleman with a past medical history ofwith Dr. Robbisn, admitted with COPD exacerbation and aspiration pneumonia, treated with antibiotics. The patient improved significantly and Dr. Mckenzie cleared the patient for discharge. The patient is keen on going home as well. So, the patient was discharged with the following advice and medications. PHYSICAL EXAMINATION: VITAL SIGNS: Stable. CARDIOVASCULAR: S1 and S2. RESPIRATIONS: Few scattered rhonchi. Recommend continue with Augmentin for 5 days and tapering dose of prednisone and evaluate in the outpatient setting for repeat swallow evaluation per Dr. Robbins. MMODL / IJN: [id number] / MTDD
== END 2023-12-01 14:12 | disposition home or self-care (01) | DRG 177 ==
LOC: EC 20:33 → 4SSUR 22:22
PROVIDERS: ADMIT Family Medicine; ATTEND Family Medicine
DX: J69.0 Pneumonitis due to inhalation of food and vomit (principal); J96.21 Acute and chronic respiratory failure with hypoxia; J44.1 Chronic obstructive pulmonary disease with (acute) exacerbation; C61 Malignant neoplasm of prostate; Z99.81 Dependence on supplemental oxygen; G20.A1 Parkinson's disease without dyskinesia, without mention of fluctuations; I10 Essential (primary) hypertension; E66.9 Obesity, unspecified; G62.9 Polyneuropathy, unspecified; K21.9 Gastro-esophageal reflux disease without esophagitis; I45.10 Unspecified right bundle-branch block; G47.30 Sleep apnea, unspecified; Z77.090 Contact with and (suspected) exposure to asbestos; Z96.89 Presence of other specified functional implants; Z96.651 Presence of right artificial knee joint; Z68.32 Body mass index [BMI] 32.0-32.9, adult; Z87.891 Personal history of nicotine dependence; Z90.49 Acquired absence of other specified parts of digestive tract; Z79.51 Long term (current) use of inhaled steroids; Z87.19 Personal history of other diseases of the digestive system; Z79.52 Long term (current) use of systemic steroids; Z79.899 Other long term (current) drug therapy; Z80.0 Family history of malignant neoplasm of digestive organs; Z85.01 Personal history of malignant neoplasm of esophagus; Z86.73 Personal history of transient ischemic attack (TIA), and cerebral infarction without residual deficits; Z90.79 Acquired absence of other genital organ(s); Z11.52 Encounter for screening for COVID-19
CPT/HCPCS: 36415; 71045; 71046; 80048; 80053; 83605; 83735; 83880; 84145; 84484; 85025; 85610; 85730; 87040; 87070; 87205; 87449; 87636; 93005; 94640; 94760; 96365; 96367; 96375; 99285

== ENCOUNTER 2024-01-08 15:13 | Inpatient (IN) | payer MEDICARE ==
--- NOTE | 2024-01-08 15:52 | ED ---
General Adult HPI - General Chief complaint: Shortness of Breath Stated complaint: SOB Time Seen by Provider: 01/08/24 15:24 Source: patient, RN notes reviewed Mode of arrival: ambulatory Limitations: no limitations - History of Present Illness Initial comments: Patient is a pleasant 68-year-old male present to the emergency department with concerns with difficulty breathing. Onset of symptoms was a few days ago. Patient does have cough, nonproductive. Patient does have fever. Patient has upper sinus congestion. Patient does have history of dyspnea similar to previous COPD. - Related Data Home Medications Medication Instructions Recorded Confirmed Omeprazole 40 mg PO HS 04/26/17 01/08/24 cloNIDine HCL [Catapres] 0.1 mg PO BID 10/02/18 01/08/24 Losartan Potassium 100 mg PO DAILY 03/20/19 01/08/24 Omeprazole 20 mg PO BID 06/08/19 01/08/24 Fluticasone/Umeclidin/Vilanter 1 puff INHALATION RT-DAILY 05/25/21 01/08/24 [Trelegy Ellipta 200-62.5-25] Baclofen [Lioresal] 20 mg PO HS 07/04/22 01/08/24 DULoxetine HCL [Cymbalta] 60 mg PO DAILY 07/04/22 01/08/24 rOPINIRole HCL [Requip] 2 mg PO BID 07/04/22 01/08/24 Albuterol Sulfate [Albuterol 2 puff INHALATION RT-QID PRN 10/23/23 01/08/24 Sulfate Hfa] Cyclobenzaprine [Flexeril] 10 mg PO TID PRN 10/23/23 01/08/24 Ipratropium-Albuterol Nebulize 3 ml INHALATION RT-QID PRN 10/23/23 01/08/24 [Duoneb 0.5 mg-3 mg/3 ml Soln] Magnesium Oxide [Mag-Ox] 250 mg PO DAILY 10/23/23 01/08/24 Previous Rx's Medication Instructions Recorded predniSONE 10 mg PO DAILY #0 10/29/23 Allergies Allergy/AdvReac Type Severity Reaction Status Date / Time No Known Allergies Allergy Verified 01/08/24 17:50 Review of Systems ROS Statement: Those systems with pertinent positive or pertinent negative responses have been documented in the HPI. ROS Other: All systems not noted in ROS Statement are negative. Constitutional: Reports: fever, chills ENT: Reports: congestion Respiratory: Reports: cough, dyspnea Endocrine: Reports: fatigue Musculoskeletal: Denies: back pain Past Medical History Past Medical History: Cancer, COPD, GERD/Reflux, Hypertension Additional Past Medical History / Comment(s): Neuropathy, hx esophageal cancer treated with surgery - 2008,. prostate cancer current 10/2023 History of Any Multi-Drug Resistant Organisms: None Reported Past Surgical History: Appendectomy, Hernia Repair, Joint Replacement, Orthopedic Surgery Additional Past Surgical History / Comment(s): Bilateral elbow, bilateral wrist carpal tunnel, bilateral rotator cuff surgeryx3 , right knee arthroscopy, right knee replacement, surgery for esophageal cancer (removed part of esophagus and removed part of stomach making it into carrot shape per patient), hernia repair X4. robotic prostatectomy with bilateral stent placement and pelvic lymph node removal 08/11/20 Past Anesthesia/Blood Transfusion Reactions: Previous Problems w/ Anesthesia Additional Past Anesthesia/Blood Transfusion Reaction / Comment(s): can not lay flat- "stomach acid will come out my nose" Past Psychological History: Anxiety, Depression Smoking Status: Former smoker Past Alcohol Use History: None Reported Past Drug Use History: None Reported - Past Family History Father Family Medical History: Cancer Additional Family Medical History / Comment(s): COLON Cancer. Mother Family Medical History: Cancer, Deep Vein Thrombosis (DVT) Additional Family Medical History / Comment(s): Brain aneurysm. General Exam Limitations: no limitations General appearance: alert, in no apparent distress Head exam: Present: normocephalic Eye exam: Present: normal appearance Neck exam: Present: normal inspection Respiratory exam: Present: wheezes, decreased breath sounds Cardiovascular Exam: Present: regular rate, normal rhythm GI/Abdominal exam: Present: soft. Absent: tenderness Extremities exam: Present: pedal edema (+1 bilateral). Absent: calf tenderness Neurological exam: Present: alert Psychiatric exam: Present: normal affect, normal mood Skin exam: Present: normal color Course Vital Signs 01/08/24 01/08/24 01/08/24 15:14 15:17 16:57 Temperature 100.4 F H Pulse Rate 91 90 Respiratory 22 28 H 29 H Rate Blood Pressure 169/90 160/83 O2 Sat by Pulse 89 L Oximetry 01/08/24 01/08/24 17:16 17:25 Temperature Pulse Rate 100 99 Respiratory 24 24 Rate Blood Pressure O2 Sat by Pulse Oximetry EKG Findings - EKG Results: EKG: interpreted by ERMD (Right axis. Right bundle branch block. Nonspecific T waves.), sinus rhythm Medical Decision Making - Medical Decision Making Was pt. sent in by a medical professional or institution (, [employer], DIRECTOR OF EMPLOYER SERVICES, urgent care, hospital, or usp...) When possible be specific @ -No Did you speak to anyone other than the patient for history (EMS, parent, family, police, friend...)? What history was obtained from this source @ -Family is present and helps provide additional history including history of recent RSV Did you review nursing and triage notes (agree or disagree)? Why? @ -I reviewed and agree with nursing and triage notes Were old charts reviewed (outside hosp., previous admission, EMS record, old EKG, old radiological studies, urgent care reports/EKG's, usp records)? Report findings @ -Multiple previous x-rays reviewed Differential Diagnosis (chest pain, altered mental status, abdominal pain women, abdominal pain men, vaginal bleeding, weakness, fever, dyspnea, syncope, headache, dizziness, GI bleed, back pain, seizure, CVA, palpatations, mental health, musculoskeletal)? @ -Differential Dyspnea: Coronary syndrome, arrhythmia, tamponade, asthma, COPD, pulmonary embolism, pneumonia, pneumothorax, pulmonary effusion, anaphylaxis, diabetic ketoacidosis, flailed chest, pulmonary contusion, diaphragmatic rupture, anemia, neuromuscular, this is not meant to be an all-inclusive list. EKG interpreted by me (3pts min.). @ -As above X-rays interpreted by me (1pt min.). @ -Chest x-ray shows right lower lobe infiltrate CT interpreted by me (1pt min.). @ -None done U/S interpreted by me (1pt. min.). @ -None done What testing was considered but not performed or refused? (CT, X-rays, U/S, labs)? Why? @ -None What meds were considered but not given or refused? Why? @ -None Did you discuss the management of the patient with other professionals (professionals i.e. [employer], DIRECTOR OF EMPLOYER SERVICES, lab, RT, psych nurse, long term care social worker, jig grinder, teacher, child support case officer, telephonic case manager)? Give summary @ -Case was discussed with Dr. Robbins who is somewhat familiar with chest x-ray abnormalities. He will admit his patient with consult with Dr. Mckenzie Was smoking cessation discussed for >3mins.? @ -No Was critical care preformed (if so, how long)? @ -33 minutes critical care time Were there social determinants of health that impacted care today? How? (Homelessness, low income, unemployed, alcoholism, drug addiction, transportation, low edu. Level, literacy, decrease access to med. care, halfway, rehab)? @ -No Was there de-escalation of care discussed even if they declined (Discuss DNR or withdrawal of care, Hospice)? DNR status @ -No What co-morbidities impacted this encounter? (DM, HTN, Smoking, COPD, CAD, Cancer, CVA, ARF, Chemo, Hep., AIDS, mental health diagnosis, sleep apnea, morbid obesity)? @ -None Was patient admitted / discharged? Hospital course, mention meds given and route, prescriptions, significant lab abnormalities, going to OR and other pertinent info. @ -Patient reevaluated mildly improved. Patient and family updated on results and plan. Patient will be admitted. There is some concern for sepsis diagnosed at 1806. Blood culture and lactic acid and IV antibiotics will be started. Undiagnosed new problem with uncertain prognosis? @ -No Drug Therapy requiring intensive monitoring for toxicity (Heparin, Nitro, Insulin, Cardizem)? @ -No Were any procedures done? @ -No Diagnosis/symptom? @ -Pneumonia, COPD Acute, or Chronic, or Acute on Chronic? @ -Acute, acute on chronic Uncomplicated (without systemic symptoms) or Complicated (systemic symptoms)? @ -Default Side effects of treatment? @ -No Exacerbation, Progression, or Severe Exacerbation? @ -COPD exacerbation Poses a threat to life or bodily function? How? (Chest pain, [place], [place], pneumonia, PE, COPD, DKA, ARF, appy, cholecystitis, CVA, Diverticulitis, Homicidal, Suicidal, threat to staff... and all critical care pts) @ -No - Lab Data Result diagrams: 01/08/24 15:52 01/08/24 15:52 Lab Results 01/08/24 01/08/24 01/08/24 Range/Units 15:52 15:52 15:52 WBC 10.2 (3.8-10.6) k/uL RBC 4.43 (4.30-5.90) m/uL Hgb 12.4 L (13.0-17.5) gm/dL Hct 38.5 L (39.0-53.0) % MCV 87.0 (80.0-100.0) fL MCH 28.0 (25.0-35.0) pg MCHC 32.2 (31.0-37.0) g/dL RDW 16.6 H (11.5-15.5) % Plt Count 253 (150-450) k/uL MPV 7.0 Neutrophils % 91 % Lymphocytes % 3 % Monocytes % 4 % Eosinophils % 1 % Basophils % 0 % Neutrophils # 9.3 H (1.3-7.7) k/uL Lymphocytes # 0.3 L (1.0-4.8) k/uL Monocytes # 0.4 (0-1.0) k/uL Eosinophils # 0.1 (0-0.7) k/uL Basophils # 0.0 (0-0.2) k/uL Anisocytosis Slight PT 10.4 (10.0-12.5) sec INR 0.9 (<1.2) APTT 25.1 (22.0-30.0) sec Sodium 137 (137-145) mmol/L Potassium 4.2 (3.5-5.1) mmol/L Chloride 103 (98-107) mmol/L Carbon Dioxide 26 (22-30) mmol/L Anion Gap 8 mmol/L BUN 19 (9-20) mg/dL Creatinine 0.60 L (0.66-1.25) mg/dL Est GFR (CKD-EPI)AfAm >90 (>60 ml/min/1.73 sqM) Est GFR (CKD-EPI)NonAf >90 (>60 ml/min/1.73 sqM) Glucose 116 H (74-99) mg/dL Plasma Lactic Acid Son (0.7-2.0) mmol/L Calcium 8.9 (8.4-10.2) mg/dL Total Bilirubin 0.7 (0.2-1.3) mg/dL AST 25 (17-59) U/L ALT 19 (4-49) U/L Alkaline Phosphatase 91 (38-126) U/L NT-Pro-B Natriuret Pep 132 pg/mL Total Protein 6.4 (6.3-8.2) g/dL Albumin 3.7 (3.5-5.0) g/dL Influenza Type A (PCR) (Not Detectd) Influenza Type B (PCR) (Not Detectd) RSV (PCR) (Not Detectd) SARS-CoV-2 (PCR) (Not Detectd) 01/08/24 01/08/24 Range/Units 15:52 15:52 WBC (3.8-10.6) k/uL RBC (4.30-5.90) m/uL Hgb (13.0-17.5) gm/dL Hct (39.0-53.0) % MCV (80.0-100.0) fL MCH (25.0-35.0) pg MCHC (31.0-37.0) g/dL RDW (11.5-15.5) % Plt Count (150-450) k/uL MPV Neutrophils % % Lymphocytes % % Monocytes % % Eosinophils % % Basophils % % Neutrophils # (1.3-7.7) k/uL Lymphocytes # (1.0-4.8) k/uL Monocytes # (0-1.0) k/uL Eosinophils # (0-0.7) k/uL Basophils # (0-0.2) k/uL Anisocytosis PT (10.0-12.5) sec INR (<1.2) APTT (22.0-30.0) sec Sodium (137-145) mmol/L Potassium (3.5-5.1) mmol/L Chloride (98-107) mmol/L Carbon Dioxide (22-30) mmol/L Anion Gap mmol/L BUN (9-20) mg/dL Creatinine (0.66-1.25) mg/dL Est GFR (CKD-EPI)AfAm (>60 ml/min/1.73 sqM) Est GFR (CKD-EPI)NonAf (>60 ml/min/1.73 sqM) Glucose (74-99) mg/dL Plasma Lactic Acid Son 1.3 (0.7-2.0) mmol/L Calcium (8.4-10.2) mg/dL Total Bilirubin (0.2-1.3) mg/dL AST (17-59) U/L ALT (4-49) U/L Alkaline Phosphatase (38-126) U/L NT-Pro-B Natriuret Pep pg/mL Total Protein (6.3-8.2) g/dL Albumin (3.5-5.0) g/dL Influenza Type A (PCR) Not Detected (Not Detectd) Influenza Type B (PCR) Not Detected (Not Detectd) RSV (PCR) Not Detected (Not Detectd) SARS-CoV-2 (PCR) Not Detected (Not Detectd) Critical Care Time Critical Care Time: Yes Total Critical Care Time: 33 Disposition Clinical Impression: COPD (chronic obstructive pulmonary disease), Pneumonia, Sepsis Disposition: ADMITTED IP TO THIS HOSP Is patient prescribed a controlled substance at d/c from ED?: No Referrals: Alex Robbins DO [Primary Care Provider] - 1-2 days Time of Disposition: 18:08
[2024-01-08] MEDS: methylPREDNISolone SOD SUCCI 125 MG/2 ML VIAL IV STA (16:03)
[2024-01-08 16:13] LABS: Anisocytosis Slight; Basophils % (A) 0 %; Eosinophils # (A) 0.1 k/uL (0-0.7); Eosinophils % (A) 1 %; HCT 38.5 % (39.0-53.0); HGB 12.4 gm/dL (13.0-17.5); Lymphocytes # (A) 0.3 k/uL (1.0-4.8); Lymphocytes % (A) 3 %; MCHC 32.2 g/dL (31.0-37.0); Monocytes # (A) 0.4 k/uL (0-1.0); Monocytes % (A) 4 %; Neutrophils # (A) 9.3 k/uL (1.3-7.7); Neutrophils % (A) 91 %; Platelet Count 253 k/uL (150-450); RBC 4.43 m/uL (4.30-5.90); RDW 16.6 % (11.5-15.5); WBC 10.2 k/uL (3.8-10.6)
[2024-01-08 16:23] LABS: INR 0.9 (<1.2); Partial Thromboplastin Time 25.1 sec (22.0-30.0); Prothrombin Time 10.4 sec (10.0-12.5)
[2024-01-08 16:27] LABS: ALT 19 U/L (4-49); AST 25 U/L (17-59); African American GFR (CKD) >90 (>60 ml/min/1.73 sqM); Albumin 3.7 g/dL (3.5-5.0); Alkaline Phosphatase 91 U/L (38-126); Anion Gap 8 mmol/L; Blood Urea Nitrogen 19 mg/dL (9-20); Calcium 8.9 mg/dL (8.4-10.2); Carbon Dioxide 26 mmol/L (22-30); Chloride 103 mmol/L (98-107); Glucose 116 mg/dL (74-99); Non-African American GFR(CKD) >90 (>60 ml/min/1.73 sqM); Potassium 4.2 mmol/L (3.5-5.1); Sodium 137 mmol/L (137-145); Total Bilirubin 0.7 mg/dL (0.2-1.3); Total Protein 6.4 g/dL (6.3-8.2)
[2024-01-08 16:34] LABS: NT-Pro-B-Type Natriuretic Pept 132 pg/mL
--- NOTE | 2024-01-08 17:09 | XR ---
EXAMINATION TYPE: XR chest 2V DATE OF EXAM: 01/08/2024 4:55 PM CLINICAL INDICATION:Male, 68 years old with history of difficulty breathing; COMPARISON: Chest radiographs from 11/29/2023. TECHNIQUE: XR chest 2V Frontal and lateral views of the chest. FINDINGS: Lungs/Pleura: Right lower lobe airspace opacities There is no evidence of pleural effusion, focal con solidation, or pneumothorax. Pulmonary vascularity: Unremarkable. Heart/mediastinum: Cardiomediastinal silhouette is unremarkable. Musculoskeletal: No acute osseous pathology. Other findings: None IMPRESSION: Right lower lobe airspace consolidation which has persistent from 11/29/2023. Findings could represent mass and/or infection
[2024-01-08] MEDS: IPRATROPIUM-ALBUTEROL 3 ML NEB INHALATION STA (17:15)
[2024-01-08] MEDS ORDERED: IPRATROPIUM-ALBUTEROL 3 ML NEB INHALATION PRN (18:08)
[2024-01-08] MEDS ORDERED: PNEUMONIA PROTOCOL UTILIZED 1 EACH MISC PO PRN (18:08)
[2024-01-08] MEDS ORDERED: NALOXONE 0.4 MG/ML 1 ML VIAL IVP PRN (18:08)
[2024-01-08] MEDS: AZITHROMYCIN 500 MG in SODIUM CHLORIDE 0.9% 250 ML IVPB STA (19:06)
[2024-01-08] MEDS ORDERED: CYCLOBENZAPRINE 10 MG TAB PO PRN (20:40)
[2024-01-08] MEDS ORDERED: NON FORMULARY DRUG (Omeprazole [Omeprazole] 40 MG Capsule.Dr) PO SCH (21:00)
[2024-01-08] MEDS: IPRATROPIUM-ALBUTEROL 3 ML NEB INHALATION SCH (21:08)
[2024-01-08] MEDS: BACLOFEN 10 MG TAB PO SCH (22:17)
[2024-01-08] MEDS: cloNIDine HCL 0.1 MG TAB PO SCH (22:17)
[2024-01-08] MEDS: SODIUM CHLORIDE 0.9% 1,000 ML IV SCH (22:21)
[2024-01-08] MEDS: methylPREDNISolone SOD SUCCI 125 MG/2 ML VIAL IV SCH (23:59)
[2024-01-09] MEDS ORDERED: ACETAMINOPHEN TAB 325 MG TAB PO PRN (01:05)
--- NOTE | 2024-01-09 05:01 | P.CNPUL ---
History of Present Illness Consult date: 01/09/24 Requesting physician: Moy Mccarthy Reason for consult: COPD, pneumonia Chief complaint: Shortness of breath, cough, fever History of present illness: I am seeing this patient in consultation today 01/09/2024 after he presented with several days of shortness of breath, chest congestion, cough, fever. Patient is a 68-year-old white male with past medical history significant for severe oxygen dependent COPD, esophageal cancer with previous esophagectomy, prostate cancer with previous prostatectomy. Patient does follow in the pulmonary office with Dr. Mckenzie for management of his severe COPD. He normally utilizes a combination of Trelegy inhaler, DuoNebs [id number], and albuterol HFA as needed. He is chronically oxygen dependent on 3 L/min nasal cannula, and he is also prednisone dependent on 10 mg every day. Most recent PFT has an FEV1 48% of predicted. Patient had a recent hospitalization in November for similar symptoms. He returns with several days of shortness of breath, cough, chest congestion fever. Denies significant sputum purulence. Denies chest pain. Denies hemoptysis. Chest x-ray shows a right lower lobe airspace consolidation which is consistent with his history of gastric pull. It is difficult to rule out superimposed bronchopneumonia. He is febrile with a temperature of 100.2 F. CBC unremarkable. No leukocytosis. BMP unremarkable. Negative for influenza, RSV, COVID. Patient was started on empiric antibiotics in the emergency room including a combination of azithromycin and Rocephin. Procalcitonin level was added. He is currently sitting up in bed, on 4 L/min nasal cannula, in no acute distress. Currently afebrile. Vital signs are stable. Review of Systems REVIEW OF SYSTEMS: CONSTITUTIONAL: Denies any recent significant weight loss or weight gain. EYES: Denies change in vision. EARS, NOSE, MOUTH, THROAT: Denies headaches, denies sore throat. CARDIOVASCULAR: Denies chest pain, palpitations or syncopal episodes. Admits chronic lower extremity swelling RESPIRATORY: See HPI. GASTROINTESTINAL: Denies change in appetite, abdominal pain, nausea and vomiting, or diarrhea GENITOURINARY: Denies hematuria, denies infections. MUSKULOSKELETAL: Denies pain, denies swelling. INTEGUMENTARY: Denies rash, denies eczema. NEUROLOGICAL: Denies recent memory loss, no recent seizure activity. PSYCHIATRIC: Denies anxiety, denies depression. HEMATOLOGIC/LYMPHATIC: Denies anemia, denies enlarged lymph node Past Medical History Past Medical History: Cancer, COPD, GERD/Reflux, Hypertension Additional Past Medical History / Comment(s): Neuropathy, hx esophageal cancer treated with surgery - 2008,. prostate cancer current 10/2023 History of Any Multi-Drug Resistant Organisms: None Reported Past Surgical History: Appendectomy, Hernia Repair, Joint Replacement, Orthopedic Surgery Additional Past Surgical History / Comment(s): Bilateral elbow, bilateral wrist carpal tunnel, bilateral rotator cuff surgeryx3 , right knee arthroscopy, right knee replacement, surgery for esophageal cancer (removed part of esophagus and removed part of stomach making it into carrot shape per patient), hernia repair X4. robotic prostatectomy with bilateral stent placement and pelvic lymph node removal 08/11/20 Past Anesthesia/Blood Transfusion Reactions: Previous Problems w/ Anesthesia Additional Past Anesthesia/Blood Transfusion Reaction / Comment(s): cannot lay flat- "stomach acid will come out my nose" Past Psychological History: Anxiety, Depression Additional Psychological History / Comment(s): Pt lives at home with his . Pt is normally independent. Smoking Status: Former smoker Past Alcohol Use History: None Reported Additional Past Alcohol Use History / Comment(s): Patient was a smoker one pack per day for 10 years and quit ago 40 years ago. He lives at home with his . He is retired [employer] with exposure to asbestos. There is one cat, a Great Power and a Mountain terrier in the home. Patient enjoys camping, bicycling, gardening and yard work. No recent travel outside of [place]. The patient has been camping in [place]. Past Drug Use History: None Reported - Past Family History Father Family Medical History: Cancer Additional Family Medical History / Comment(s): COLON Cancer. Mother Family Medical History: Cancer, Deep Vein Thrombosis (DVT) Additional Family Medical History / Comment(s): Brain aneurysm. Medications and Allergies Home Medications Medication Instructions Recorded Confirmed Type Omeprazole 40 mg PO HS 04/26/17 01/08/24 History cloNIDine HCL [Catapres] 0.1 mg PO BID 10/02/18 01/08/24 History Losartan Potassium 100 mg PO DAILY 03/20/19 01/08/24 History Omeprazole 20 mg PO BID 06/08/19 01/08/24 History Fluticasone/Umeclidin/Vilanter 1 puff INHALATION RT-DAILY 05/25/21 01/08/24 History [Trelegy Ellipta 200-62.5-25] Baclofen [Lioresal] 20 mg PO HS 07/04/22 01/08/24 History DULoxetine HCL [Cymbalta] 60 mg PO DAILY 07/04/22 01/08/24 History rOPINIRole HCL [Requip] 2 mg PO BID 07/04/22 01/08/24 History Albuterol Sulfate [Albuterol 2 puff INHALATION RT-QID PRN 10/23/23 01/08/24 History Sulfate Hfa] Cyclobenzaprine [Flexeril] 10 mg PO TID PRN 10/23/23 01/08/24 History Ipratropium-Albuterol Nebulize 3 ml INHALATION RT-QID PRN 10/23/23 01/08/24 History [Duoneb 0.5 mg-3 mg/3 ml Soln] Magnesium Oxide [Mag-Ox] 250 mg PO DAILY 10/23/23 01/08/24 History predniSONE 10 mg PO DAILY #0 10/29/23 01/08/24 Rx Allergies Allergy/AdvReac Type Severity Reaction Status Date / Time No Known Allergies Allergy Verified 01/08/24 17:50 Physical Exam Vitals: Vital Signs Temp Pulse Pulse Resp BP BP Pulse Ox 01/09/24 02:00 98.4 F 82 16 138/75 93 L 01/08/24 20:00 98.0 F 82 16 121/57 98 01/08/24 19:00 97.4 F L 101 H 28 H 145/68 95 01/08/24 18:59 100.2 F H 95 30 H 131/65 01/08/24 18:04 105 H 20 153/79 96 01/08/24 17:25 99 24 01/08/24 17:16 100 24 01/08/24 16:57 90 29 H 160/83 01/08/24 15:17 28 H 01/08/24 15:14 100.4 F H 91 22 169/90 89 L Intake and Output 01/08/24 01/08/24 01/09/24 14:59 22:59 06:59 Other: Weight 99.79 kg GENERAL EXAM: Alert, 68-year-old white male, sitting up in bedside recliner, comfortable in no apparent distress. HEAD: Normocephalic and atraumatic EYES: Normal reaction of pupils, equal size. NOSE: Clear with pink turbinates. THROAT: No erythema or exudates. NECK: No masses, no JVD. CHEST: No chest wall deformity. LUNGS: Equal air entry with scattered rhonchi and end expiratory wheezing heard throughout. On 4 L/min nasal cannula. No conversational dyspnea or accessory muscle use.. CVS: S1 and S2 normal with no audible murmur, regular rhythm. No extra heart sounds ABDOMEN: No hepatosplenomegaly, active bowel sounds, no guarding or rigidity. SPINE: No scoliosis or deformity SKIN: No rashes CENTRAL NERVOUS SYSTEM: No focal deficits, tone is normal in all 4 extremities. EXTREMITIES: There is bilateral pedal edema, no clubbing, or cyanosis. Peripheral pulses are intact. Results - Laboratory Findings CBC and BMP: 01/08/24 15:52 01/08/24 15:52 PT/INR, D-dimer PT 10.4 sec (10.0-12.5) 01/08/24 15:52 INR 0.9 (<1.2) 01/08/24 15:52 Abnormal lab findings: Abnormal Labs 01/08/24 01/08/24 15:52 15:52 Hgb 12.4 L Hct 38.5 L RDW 16.6 H Neutrophils # 9.3 H Lymphocytes # 0.3 L Creatinine 0.60 L Glucose 116 H - Diagnostic Findings Chest x-ray: image reviewed Assessment and Plan Assessment: Acute exacerbation of COPD, chest x-ray shows the chronic right lower lobe opacity consistent with the patient's previous gastric pull-through. No obvious new acute infiltrates. Patient had already been started on empiric antibiotics in the emergency room. Procalcitonin level pending. Viral panel negative for influenza, RSV, COVID. Acute febrile illness Acute on chronic hypoxic respiratory failure, the patient is currently on 4 L O2 nasal cannula Severe COPD with an FEV1 of 48% of predicted at baseline. The patient had a recent hospitalization in October for the same and the patient was positive for RSV infection and at that time he was supported with a BiPAP and subsequently his condition was further optimized. Noted the patient has been maintained on Trelegy Ellipta on outpatient basis as maintenance for COPD Recent hospitalization for an acute COPD exacerbation on 10/23/2023 and this was attributed to an acute RSV infection History of esophageal cancer with a esophagectomy and gastric pull GERD, secondary to above History of prostate cancer with a previous prostatectomy Hypertension Peripheral neuropathy Plan Continue supplemental oxygen to maintain oxygen saturation of 90% or greater Continue DuoNebs [id number], Symbicort inhaler, and IV Solu-Medrol May switch to home Trelegy inhaler if brought in. Patient was empirically started on antibiotics in the emergency room. Check procalcitonin level and manage accordingly Negative for influenza, RSV, COVID on this admission Will continue to follow. I have personally seen and examined the patient, performed the documentation and the assessment and plan as written. Number of minutes spent on the visit:20 Time with Patient: Greater than 30
[2024-01-09] MEDS: PANTOPRAZOLE 40 MG TABLET PO SCH (08:31)
[2024-01-09] MEDS: LOSARTAN 50 MG TAB PO SCH (08:31)
[2024-01-09] MEDS: DULoxetine HCL 60 MG CAPSULE.DR PO SCH (08:31)
[2024-01-09] MEDS: MAGNESIUM OXIDE 400 MG TAB PO SCH (08:31)
[2024-01-09] MEDS: SYMBICORT 160-4.5 MCG INHALER INHALATION SCH (08:40)
--- NOTE | 2024-01-09 09:56 | XR ---
EXAMINATION TYPE: XR chest 2V DATE OF EXAM: 01/09/2024 COMPARISON: 01/08/2024 TECHNIQUE: PA and lateral views submitted. HISTORY: Pneumonia FINDINGS: Persistent right-sided consolidation. Left lung clear. Postoperative changes right shoulder. No pneum othorax or sizable pleural effusion. No overt edema. Underlying COPD. Degenerative changes of the spi ne. IMPRESSION: 1. Persistent large area of consolidation right lower lung correlate for pneumonia. Underlying neopla sm not excluded.
[2024-01-09] MEDS: AZITHROMYCIN 500 MG TAB PO SCH (10:48)
--- NOTE | 2024-01-09 11:35 | P.HPIM ---
History of Present Illness H&P Date: 01/09/24 Chief Complaint: Worsening dyspnea This is a pleasant 68-year-old gentleman with recent hospitalizations on COPD exacerbation, 10/23/23 for COPD exacerbation, RSV and left lower lobe pneumonia with past medical history significant for severe steroid-dependent COPD , chronic oxygen dependent on 3 L nasal cannula , chronic steroid-dependent ,gastroesophageal reflux disease, former nicotine dependence, esophageal cancer with surgical resection and gastric pull-through, peripheral neuropathy,prostate cancer status post prostatectomy with bilateral pelvic lymph node dissection and stent placement, hypertension, Parkinson's disease, sleep apnea and multiple other medical issues presented to the ER with a few days of difficulty breathing, congestion, mostly nonproductive cough, and fever. Denies hemoptysis. Denies chest pain, palpitations. chest x-ray reported persistent from 11/29/2023, large area of consolidation right lower lung, correlate for pneumonia, underlying neoplasm not excluded. Right lower lobe airspace consolidation consistent with history of gastric pull as per pulmonary. Tmax 100.4, CBC, coagulation and chemistry panels unremarkable. Viral studies negative. Procalcitonin 0.07. Review of Systems ROS Statement: Those systems with pertinent positive or pertinent negative responses have been documented in the HPI. ROS Other: All systems not noted in ROS Statement are negative. Past Medical History Past Medical History: Cancer, COPD, GERD/Reflux, Hypertension Additional Past Medical History / Comment(s): Neuropathy, hx esophageal cancer treated with surgery - 2008,. prostate cancer current 10/2023 History of Any Multi-Drug Resistant Organisms: None Reported Past Surgical History: Appendectomy, Hernia Repair, Joint Replacement, Orthopedic Surgery Additional Past Surgical History / Comment(s): Bilateral elbow, bilateral wrist carpal tunnel, bilateral rotator cuff surgeryx3 , right knee arthroscopy, right knee replacement, surgery for esophageal cancer (removed part of esophagus and removed part of stomach making it into carrot shape per patient), hernia repair X4. robotic prostatectomy with bilateral stent placement and pelvic lymph node removal 08/11/20 Past Anesthesia/Blood Transfusion Reactions: Previous Problems w/ Anesthesia Additional Past Anesthesia/Blood Transfusion Reaction / Comment(s): cannot lay flat- "stomach acid will come out my nose" Past Psychological History: Anxiety, Depression Additional Psychological History / Comment(s): Pt lives at home with his . Pt is normally independent. Smoking Status: Former smoker Past Alcohol Use History: None Reported Additional Past Alcohol Use History / Comment(s): Patient was a smoker one pack per day for 10 years and quit ago 40 years ago. He lives at home with his . He is retired [employer] with exposure to asbestos. There is one cat, a Great Power and a Mountain terrier in the home. Patient enjoys camping, bicycling, gardening and yard work. No recent travel outside of [place]. The patient has been camping in [place]. Past Drug Use History: None Reported - Past Family History Father Family Medical History: Cancer Additional Family Medical History / Comment(s): COLON Cancer. Mother Family Medical History: Cancer, Deep Vein Thrombosis (DVT) Additional Family Medical History / Comment(s): Brain aneurysm. Medications and Allergies Home Medications Medication Instructions Recorded Confirmed Type Omeprazole 40 mg PO HS 04/26/17 01/08/24 History cloNIDine HCL [Catapres] 0.1 mg PO BID 10/02/18 01/08/24 History Losartan Potassium 100 mg PO DAILY 03/20/19 01/08/24 History Omeprazole 20 mg PO BID 06/08/19 01/08/24 History Fluticasone/Umeclidin/Vilanter 1 puff INHALATION RT-DAILY 05/25/21 01/08/24 History [Trelegy Ellipta 200-62.5-25] Baclofen [Lioresal] 20 mg PO HS 07/04/22 01/08/24 History DULoxetine HCL [Cymbalta] 60 mg PO DAILY 07/04/22 01/08/24 History rOPINIRole HCL [Requip] 2 mg PO BID 07/04/22 01/08/24 History Albuterol Sulfate [Albuterol 2 puff INHALATION RT-QID PRN 10/23/23 01/08/24 History Sulfate Hfa] Cyclobenzaprine [Flexeril] 10 mg PO TID PRN 10/23/23 01/08/24 History Ipratropium-Albuterol Nebulize 3 ml INHALATION RT-QID PRN 10/23/23 01/08/24 History [Duoneb 0.5 mg-3 mg/3 ml Soln] Magnesium Oxide [Mag-Ox] 250 mg PO DAILY 10/23/23 01/08/24 History predniSONE 10 mg PO DAILY #0 10/29/23 01/08/24 Rx Allergies Allergy/AdvReac Type Severity Reaction Status Date / Time No Known Allergies Allergy Verified 01/08/24 17:50 Physical Exam Vitals: Vital Signs Temp Pulse Pulse Resp BP BP Pulse Ox 01/09/24 08:50 86 23 01/09/24 08:40 84 22 94 L 01/09/24 08:00 98.2 F 80 23 158/86 96 01/09/24 02:00 98.4 F 82 16 138/75 93 L 01/08/24 20:00 98.0 F 82 16 121/57 98 01/08/24 19:00 97.4 F L 101 H 28 H 145/68 95 01/08/24 18:59 100.2 F H 95 30 H 131/65 01/08/24 18:04 105 H 20 153/79 96 01/08/24 17:25 99 24 01/08/24 17:16 100 24 01/08/24 16:57 90 29 H 160/83 01/08/24 15:17 28 H 01/08/24 15:14 100.4 F H 91 22 169/90 89 L Intake and Output 01/08/24 01/09/24 01/09/24 22:59 06:59 14:59 Intake Total 120 Balance 120 Intake: Oral 120 Other: Voiding Method Toilet # Voids 3 Weight 99.79 kg - Exam PHYSICAL EXAM: VITAL SIGNS: [As above] GENERAL: Alert and oriented 3, Sitting up at side of bed, no acute distress. No conversational dyspnea HEENT: Normocephalic, atraumatic, Conjunctivae normal. eyes normal. MMM. NECK: Supple, No JVD. CARDIOVASCULAR: S1, S2 regular. No murmur RESPIRATION: Equal air entry with rhonchi and end expiratory wheezes scattered throughout, increased congestion noted on the right, bilateral bases diminished. ABDOMEN: Soft, nondistended, nontender . No guarding. no masses palpable. No ascites, No hepatosplenomegaly.Bowel sounds heard. LEGS: No edema. no swelling. NERVOUS SYSTEM: Cranial N 2-12 grossly normal. No focal deficits. Strength and sensation grossly intact. Skin: Warm and dry, no rash Results CBC & Chem 7: 01/08/24 15:52 01/08/24 15:52 Labs: Abnormal Lab Results - Last 24 Hours (Table) 01/08/24 01/08/24 Range/Units 15:52 15:52 Hgb 12.4 L (13.0-17.5) gm/dL Hct 38.5 L (39.0-53.0) % RDW 16.6 H (11.5-15.5) % Neutrophils # 9.3 H (1.3-7.7) k/uL Lymphocytes # 0.3 L (1.0-4.8) k/uL Creatinine 0.60 L (0.66-1.25) mg/dL Glucose 116 H (74-99) mg/dL Thrombosis Risk Factor Assmnt - Choose All That Apply Any of the Below Risk Factors Present?: Yes Each Factor Represents 1 point: Obesity (BMI >25) Other Risk Factors: Yes Each Risk Factor Represents 2 Points: Age 61-74 years Each Risk Factor Represents 3 Points: Family history of DVT/PE Thrombosis Risk Factor Assessment Total Risk Factor Score: 6 Thrombosis Risk Factor Assessment Level: High Risk Assessment and Plan Assessment: Acute COPD exacerbation, recurrent, recently discharged on 12/01/23 and 11/13 with similar presentations.chest x-ray reporting persistent from 11/29/2023, large area of consolidation right lower lung, correlate for pneumonia, underlying neoplasm not excluded,in a patient with history of chronic right lower lobe opacity, prior gastric pull procedure. Right lower lobe airspace consolidation consistent with history of gastric pull as per pulmonary. Acute on chronic hypoxic respiratory failure, wears 3 L nasal cannula at home Severe COPD, steroid-dependent Hypertension History of esophageal cancer with history of partial esophagectomy Former nicotine dependence History of prostate cancer status post prostatectomy Obesity, BMI 32 Plan: Continue on current medication regimen ,monitoring and symptomatic treatment. Blood, sputum and Legionella cultures pending. Aggressive pulmonary toileting with nebulized bronchodilators ATC, IV steroids, long-acting beta a gonist, empiric antibiotics/Rocephin and azithromycin. PPI for GI prophylaxis pulmonary following. BLANCA hose/compression for DVT prophylaxis. The impression and plan of care has been dictated as directed. : I performed a history and examination of this patient, discussed the same with the dictator. I agree with the dictator's note ,documented as a scribe. Any additional findings or plans will be noted.
--- NOTE | 2024-01-09 18:15 | P.CNPUL ---
History of Present Illness Consult date: 01/09/24 Reason for consult: dyspnea History of present illness: Pleasant 68-year-old male patient with known history of esophageal cancer and recurrent respiratory tract infections or pneumonias. The patient was recently hospitalized back in November 2023 f and acute stroke exacerbation and acute hypoxic respiratory failure with suspected pneumonia. Noted the patient has COPD with an FEV1 of 48% predicted the baseline. Patient has been also has had previous hospitalization for an acute RSV infection has had previous hospitalization for RSV infections. He has been maintained on Trelegy Ellipta on an outpatient basis regarding his COPD. He also has previous history of esophageal cancer and esophagectomy and gastric fall and the most recent PET/CT that was done on this patient on 04/06/2023 showed no significant metabolic activity within the chest to indicate any residual disease. The patient is also known to have previous history of prostate cancer post prostatectomy, hypertension, and has issues with peripheral neuropathy. The patient is coming in with increased cough and congestion and shortness of breath. The patient's white cell count currently is at 9.2 with a white cell count of 12.4. Coagulation profiles been within normal limits. The electrolytes are all normal. Viral screen has been negative and t procalcitonin level was not elevated at 0.07. The patient is currently on 4 L of O2 nasal cannula. Has limited cough and congestion. Placed on Rocephin and Zithromax. Placed on IV Solu-Medrol. Placed on Symbicort as maintenance and DuoNeb updrafts. The chest x-ray was done showed persistent large area of opacity in the right lung base and this is related to a gastric polyp. Superimposed infection within the same area cannot be completely excluded. Clinically, the patient looks stable and does not look toxic at this point in time. Review of Systems CONSTITUTIONAL: Denies any recent significant weight loss or weight gain. EYES: Denies change in vision. EARS, NOSE, MOUTH, THROAT: Denies headaches, denies sore throat. CARDIOVASCULAR: Denies chest pain, palpitations or syncopal episodes. Admits chronic lower extremity swelling RESPIRATORY: See HPI. GASTROINTESTINAL: Denies change in appetite, abdominal pain, nausea and vomiting, or diarrhea GENITOURINARY: Denies hematuria, denies infections. MUSKULOSKELETAL: Denies pain, denies swelling. INTEGUMENTARY: Denies rash, denies eczema. NEUROLOGICAL: Denies recent memory loss, no recent seizure activity. PSYCHIATRIC: Denies anxiety, denies depression. HEMATOLOGIC/LYMPHATIC: Denies anemia, denies enlarged lymph node Past Medical History Past Medical History: Cancer, COPD, GERD/Reflux, Hypertension Additional Past Medical History / Comment(s): Neuropathy, hx esophageal cancer treated with surgery - 2008,. prostate cancer current 10/2023 History of Any Multi-Drug Resistant Organisms: None Reported Past Surgical History: Appendectomy, Hernia Repair, Joint Replacement, Orthopedic Surgery Additional Past Surgical History / Comment(s): Bilateral elbow, bilateral wrist carpal tunnel, bilateral rotator cuff surgeryx3 , right knee arthroscopy, right knee replacement, surgery for esophageal cancer (removed part of esophagus and removed part of stomach making it into carrot shape per patient), hernia repair X4. robotic prostatectomy with bilateral stent placement and pelvic lymph node removal 08/11/20 Past Anesthesia/Blood Transfusion Reactions: Previous Problems w/ Anesthesia Additional Past Anesthesia/Blood Transfusion Reaction / Comment(s): cannot lay flat- "stomach acid will come out my nose" Past Psychological History: Anxiety, Depression Additional Psychological History / Comment(s): Pt lives at home with his . Pt is normally independent. Smoking Status: Former smoker Past Alcohol Use History: None Reported Additional Past Alcohol Use History / Comment(s): Patient was a smoker one pack per day for 10 years and quit ago 40 years ago. He lives at home with his . He is retired [employer] with exposure to asbestos. There is one cat, a Great Power and a Mountain terrier in the home. Patient enjoys camping, bicycling, gardening and yard work. No recent travel outside of [place]. The patient has been camping in [place]. Past Drug Use History: None Reported - Past Family History Father Family Medical History: Cancer Additional Family Medical History / Comment(s): COLON Cancer. Mother Family Medical History: Cancer, Deep Vein Thrombosis (DVT) Additional Family Medical History / Comment(s): Brain aneurysm. Medications and Allergies Home Medications Medication Instructions Recorded Confirmed Type Omeprazole 40 mg PO HS 04/26/17 01/08/24 History cloNIDine HCL [Catapres] 0.1 mg PO BID 10/02/18 01/08/24 History Losartan Potassium 100 mg PO DAILY 03/20/19 01/08/24 History Omeprazole 20 mg PO BID 06/08/19 01/08/24 History Fluticasone/Umeclidin/Vilanter 1 puff INHALATION RT-DAILY 05/25/21 01/08/24 History [Trelegy Ellipta 200-62.5-25] Baclofen [Lioresal] 20 mg PO HS 07/04/22 01/08/24 History DULoxetine HCL [Cymbalta] 60 mg PO DAILY 07/04/22 01/08/24 History rOPINIRole HCL [Requip] 2 mg PO BID 07/04/22 01/08/24 History Albuterol Sulfate [Albuterol 2 puff INHALATION RT-QID PRN 10/23/23 01/08/24 History Sulfate Hfa] Cyclobenzaprine [Flexeril] 10 mg PO TID PRN 10/23/23 01/08/24 History Ipratropium-Albuterol Nebulize 3 ml INHALATION RT-QID PRN 10/23/23 01/08/24 History [Duoneb 0.5 mg-3 mg/3 ml Soln] Magnesium Oxide [Mag-Ox] 250 mg PO DAILY 10/23/23 01/08/24 History predniSONE 10 mg PO DAILY #0 10/29/23 01/08/24 Rx Allergies Allergy/AdvReac Type Severity Reaction Status Date / Time No Known Allergies Allergy Verified 01/08/24 17:50 Physical Exam Vitals: Vital Signs Temp Pulse Pulse Resp BP BP Pulse Ox 01/09/24 15:28 84 01/09/24 15:16 82 01/09/24 14:00 97.5 F L 96 22 144/67 01/09/24 11:45 84 21 01/09/24 11:34 82 21 01/09/24 08:50 86 23 01/09/24 08:40 84 22 94 L 01/09/24 08:00 98.2 F 80 23 158/86 96 01/09/24 02:00 98.4 F 82 16 138/75 93 L 01/08/24 20:00 98.0 F 82 16 121/57 98 01/08/24 19:00 97.4 F L 101 H 28 H 145/68 95 01/08/24 18:59 100.2 F H 95 30 H 131/65 Intake and Output 01/09/24 01/09/24 01/09/24 06:59 14:59 22:59 Intake Total 240 Output Total 0 Balance 240 0 Intake: Oral 240 Output: Gastric Drainage 0 Urine 0 Stool 0 Urine/Stool Mix 0 Emesis 0 Oral Regurgitation 0 Other 0 Other: Voiding Method Toilet # Voids 3 0 # Bowel Movements 0 GENERAL EXAM: Alert, 68-year-old white male, in some mild respiratory distress. He is diaphoretic. He is tachypneic. He speaks in short sentences. He is on 4 L/min nasal cannula. HEAD: Normocephalic and atraumatic EYES: Normal reaction of pupils, equal size. NOSE: Clear with pink turbinates. THROAT: No erythema or exudates. NECK: No masses, no JVD. CHEST: No chest wall deformity. LUNGS: Equal air entry with end expiratory wheezes heard throughout. No crackles. No focal dullness. N CVS: S1 and S2 normal with no audible murmur, regular rhythm. No extra heart sounds ABDOMEN: No hepatosplenomegaly, active bowel sounds, no guarding or rigidity. SPINE: No scoliosis or deformity SKIN: No rashes CENTRAL NERVOUS SYSTEM: No focal deficits, tone is normal in all 4 extremities. EXTREMITIES: There is bilateral 3+ pitting edema. No clubbing, or cyanosis. Peripheral pulses are intact. Results - Laboratory Findings CBC and BMP: 01/08/24 15:52 01/08/24 15:52 ABG WBC 10.2 k/uL (3.8-10.6) 01/08/24 15:52 RBC 4.43 m/uL (4.30-5.90) 01/08/24 15:52 Hgb 12.4 gm/dL (13.0-17.5) L 01/08/24 15:52 Hct 38.5 % (39.0-53.0) L 01/08/24 15:52 MCV 87.0 fL (80.0-100.0) 01/08/24 15:52 MCH 28.0 pg (25.0-35.0) 01/08/24 15:52 MCHC 32.2 g/dL (31.0-37.0) 01/08/24 15:52 RDW 16.6 % (11.5-15.5) H 01/08/24 15:52 Plt Count 253 k/uL (150-450) 01/08/24 15:52 MPV 7.0 01/08/24 15:52 Neutrophils % 91 % 01/08/24 15:52 Lymphocytes % 3 % 01/08/24 15:52 Monocytes % 4 % 01/08/24 15:52 Eosinophils % 1 % 01/08/24 15:52 Basophils % 0 % 01/08/24 15:52 Neutrophils # 9.3 k/uL (1.3-7.7) H 01/08/24 15:52 Lymphocytes # 0.3 k/uL (1.0-4.8) L 01/08/24 15:52 Monocytes # 0.4 k/uL (0-1.0) 01/08/24 15:52 Eosinophils # 0.1 k/uL (0-0.7) 01/08/24 15:52 Basophils # 0.0 k/uL (0-0.2) 01/08/24 15:52 Anisocytosis Slight 01/08/24 15:52 PT 10.4 sec (10.0-12.5) 01/08/24 15:52 INR 0.9 (<1.2) 01/08/24 15:52 APTT 25.1 sec (22.0-30.0) 01/08/24 15:52 Sodium 137 mmol/L (137-145) 01/08/24 15:52 Potassium 4.2 mmol/L (3.5-5.1) 01/08/24 15:52 Chloride 103 mmol/L (98-107) 01/08/24 15:52 Carbon Dioxide 26 mmol/L (22-30) 01/08/24 15:52 Anion Gap 8 mmol/L 01/08/24 15:52 BUN 19 mg/dL (9-20) 01/08/24 15:52 Creatinine 0.60 mg/dL (0.66-1.25) L 01/08/24 15:52 Est GFR (CKD-EPI)AfAm >90 (>60 ml/min/1.73 sqM) 01/08/24 15:52 Est GFR (CKD-EPI)NonAf >90 (>60 ml/min/1.73 sqM) 01/08/24 15:52 Glucose 116 mg/dL (74-99) H 01/08/24 15:52 Plasma Lactic Acid Son 1.3 mmol/L (0.7-2.0) 01/08/24 15:52 Calcium 8.9 mg/dL (8.4-10.2) 01/08/24 15:52 Total Bilirubin 0.7 mg/dL (0.2-1.3) 01/08/24 15:52 AST 25 U/L (17-59) 01/08/24 15:52 ALT 19 U/L (4-49) 01/08/24 15:52 Alkaline Phosphatase 91 U/L (38-126) 01/08/24 15:52 NT-Pro-B Natriuret Pep 132 pg/mL 01/08/24 15:52 Total Protein 6.4 g/dL (6.3-8.2) 01/08/24 15:52 Albumin 3.7 g/dL (3.5-5.0) 01/08/24 15:52 Procalcitonin 0.07 ng/mL (0.02-0.09) 01/09/24 05:39 Influenza Type A (PCR) Not Detected (Not Detectd) 01/08/24 15:52 Influenza Type B (PCR) Not Detected (Not Detectd) 01/08/24 15:52 RSV (PCR) Not Detected (Not Detectd) 01/08/24 15:52 SARS-CoV-2 (PCR) Not Detected (Not Detectd) 01/08/24 15:52 PT/INR, D-dimer PT 10.4 sec (10.0-12.5) 01/08/24 15:52 INR 0.9 (<1.2) 01/08/24 15:52 Abnormal lab findings: Abnormal Labs 01/08/24 01/08/24 15:52 15:52 Hgb 12.4 L Hct 38.5 L RDW 16.6 H Neutrophils # 9.3 H Lymphocytes # 0.3 L Creatinine 0.60 L Glucose 116 H - Diagnostic Findings Chest x-ray: image reviewed Assessment and Plan Plan: Acute exacerbation of COPD, with a suspected right lower lobe pneumonia/aspiration/chemical pneumonitis. There is some increased consolidation in the right lung base at the area where the patient has a gastric fall. Procalcitonin level has been negative. Viral screen has been negative. ay is free of any acute pulm infiltrates is consistent with previous gastric surgery/Jim following esophageal resection Acute hypoxic respiratory failure the patient is currently on 4 L O2 nasal ca nnula Recurrent COPD exacerbation, requiring several hospitalizations, the patient is maintained on Trelegy Ellipta on outpatient basis. Previous history of COPD with an FEV1 of 48% of predicted at baseline. The patient had a recent hospitalization in October for the same and the patient was positive for RSV infection and at that time he was supported with a BiPAP and subsequently his condition was further optimized. Noted the patient has been maintained on Trelegy Ellipta on outpatient basis as maintenance for COPD Recent hospitalization on for an acute s COPD exacerbation on 10/24/2023 and this was attributed to an acute RSV infection History of esophageal cancer with a esophagectomy and gastric polyp, most recent PET/CT from March 2023 showed no evidence of any metabolic activity within the chest History of prostate cancer with a previous prostatectomy Hypertension Peripheral neuropathy Acid reflux secondary to above Plan Titrate oxygen flow to maintain saturation above 90% Continue same antibiotic coverage Procalcitonin level is negative and the patient can have a possible aspiration /chemical pneumonitis as there is some new haziness in the right lower lobe area. Continue same treatment Continue DuoNeb nebulizer treatments [id number] 4 times a day Symbicort as maintenance as a replacement for Trelegy Ellipta Utilized home medications Titrate oxygen flow to maintain saturation above 90% Will continue to follow.
--- NOTE | 2024-01-10 16:41 | P.PN ---
Subjective Progress Note Date: 01/10/24 Pleasant 68-year-old male patient with known history of esophageal cancer and recurrent respiratory tract infections or pneumonias. The patient was recently hospitalized back in November 2023 f and acute stroke exacerbation and acute hypoxic respiratory failure with suspected pneumonia. Noted the patient has COPD with an FEV1 of 48% predicted the baseline. Patient has been also has had previous hospitalization for an acute RSV infection has had previous hospitalization for RSV infections. He has been maintained on Trelegy Ellipta on an outpatient basis regarding his COPD. He also has previous history of esophageal cancer and esophagectomy and gastric fall and the most recent PET/CT that was done on this patient on 04/06/2023 showed no significant metabolic activity within the chest to indicate any residual disease. The patient is also known to have previous history of prostate cancer post prostatectomy, hypertension, and has issues with peripheral neuropathy. The patient is coming in with increased cough and congestion and shortness of breath. The patient's white cell count currently is at 9.2 with a white cell count of 12.4. Coagulation profiles been within normal limits. The electrolytes are all normal. Viral screen has been negative and t procalcitonin level was not eleva manuel at 0.07. The patient is currently on 4 L of O2 nasal cannula. Has limited cough and congestion. Placed on Rocephin and Zithromax. Placed on IV Solu- Medrol. Placed on Symbicort as maintenance and DuoNeb updrafts. The chest x- ray was done showed persistent large area of opacity in the right lung base and this is related to a gastric polyp. Superimposed infection within the same area cannot be completely excluded. Clinically, the patient looks stable and does not look toxic at this point in time. On today's evaluation of 01/10/2024, I am seeing the patient for a follow-up. Remains congested and bronchospastic and wheezy. Not ready for discharge yet. Procalcitonin level has been 0 and the patient is on bronchodilators and steroids and the patient is covered with a combination of Rocephin and Zithromax in addition to bronchodilators and steroids. Objective - Vital Signs Vital signs: Vital Signs Temp 97.7 F 01/10/24 08:00 Pulse 77 01/10/24 08:41 Resp 18 01/10/24 08:41 BP 148/83 01/10/24 08:00 Pulse Ox 98 01/10/24 08:31 FiO2 Intake & Output 01/09/24 01/10/24 01/10/24 18:59 06:59 18:59 Intake Total 480 240 Output Total 0 Balance 480 240 Intake: Oral 480 240 Output: Gastric Drainage 0 Urine 0 Stool 0 Urine/Stool Mix 0 Emesis 0 Oral Regurgitation 0 Other 0 Other: Voiding Method Toilet # Voids 0 2 # Bowel Movements 0 - Exam GENERAL EXAM: Alert, 68-year-old white male, in some mild respiratory distress. He is diaphoretic. He is tachypneic. He speaks in short sentences. He is on 4 L/min nasal cannula. HEAD: Normocephalic and atraumatic EYES: Normal reaction of pupils, equal size. NOSE: Clear with pink turbinates. THROAT: No erythema or exudates. NECK: No masses, no JVD. CHEST: No chest wall deformity. LUNGS: Equal air entry with end expiratory wheezes heard throughout. No crackles. No focal dullness. N CVS: S1 and S2 normal with no audible murmur, regular rhythm. No extra heart sounds ABDOMEN: No hepatosplenomegaly, active bowel sounds, no guarding or rigidity. SPINE: No scoliosis or deformity SKIN: No rashes CENTRAL NERVOUS SYSTEM: No focal deficits, tone is normal in all 4 extremities. EXTREMITIES: There is bilateral 3+ pitting edema. No clubbing, or cyanosis. Peripheral pulses are intact. - Labs CBC & Chem 7: 01/08/24 15:52 01/08/24 15:52 Labs: Microbiology - Last 24 Hours (Table) 01/09/24 20:30 Gram Stain - Preliminary Sputum 01/08/24 15:57 Blood Culture - Preliminary Blood 01/08/24 15:42 Blood Culture - Preliminary Blood Assessment and Plan Plan: Acute exacerbation of COPD, with a suspected right lower lobe pneumonia/aspiration/chemical pneumonitis. There is some increased consolidation in the right lung base at the area where the patient has a gastric fall. Procalcitonin level has been negative. Viral screen has been negative. ay is free of any acute pulm infiltrates is consistent with previous gastric surgery/Jim following esophageal resection Acute hypoxic respiratory failure the patient is currently on 4 L O2 nasal cannula Recurrent COPD exacerbation, requiring several hospitalizations, the patient is maintained on Trelegy Ellipta on outpatient basis. Previous history of COPD with an FEV1 of 48% of predicted at baseline. The patient had a recent hospitalization in October for the same and the patient was positive for RSV infection and at that time he was supported with a BiPAP and subsequently his condition was further optimized. Noted the patient has been maintained on Trelegy Ellipta on outpatient basis as maintenance for COPD Recent hospitalization on for an acute s COPD exacerbation on 10/24/2023 and this was attributed to an acute RSV infection History of esophageal cancer with a esophagectomy and gastric polyp, most recent PET/CT from March 2023 showed no evidence of any metabolic activity within the chest History of prostate cancer with a previous prostatectomy Hypertension Peripheral neuropathy Acid reflux secondary to above Plan Repeat chest x-ray in the morning Continue same treatment Remains bronchospastic and wheezy Titrate oxygen flow to maintain saturation above 90% Continue same antibiotic coverage Procalcitonin level is negative and the patient can have a possible aspiration /chemical pneumonitis as there is some new haziness in the right lower lobe area. Continue same treatment Continue DuoNeb nebulizer treatments [id number] 4 times a day Symbicort as maintenance as a replacement for Trelegy Ellipta Utilized home medications Titrate oxygen flow to maintain saturation above 90% Will continue to follow.
--- NOTE | 2024-01-10 17:53 | P.DS ---
Providers Date of admission: 01/08/24 18:11 Expected date of discharge: 01/10/24 Attending physician: Alex Robbins Consults: 01/08/24 18:08 Consult Physician Routine Consulting Provider: Janet Mckenzie Consult Reason/Comments: Pneumonia, COPD, sepsis Do you want consulting provider notified?: Yes Primary care physician: Alex Robbins Hospital Course: Final Diagnoses: Acute COPD exacerbation, recurrent, recently discharged on 12/01/23 and 11/13 with similar presentations.chest x-ray reporting persistent from 11/29/2023, large area of consolidation right lower lung, correlate for pneumonia, underlying neoplasm not excluded,in a patient with history of chronic right lower lobe opacity, prior gastric pull procedure. Right lower lobe airspace consolidation consistent with history of gastric pull as per pulmonary. Acute on chronic hypoxic respiratory failure, wears 3 L nasal cannula at home Severe COPD, steroid-dependent Hypertension History of esophageal cancer with history of partial esophagectomy Former nicotine dependence History of prostate cancer status post prostatectomy Obesity, BMI 32 Hospital course:H&P Date: 01/09/24 Chief Complaint: Worsening dyspnea This is a pleasant 68-year-old gentleman with recent hospitalizations on COPD exacerbation, 10/23/23 for COPD exacerbation, RSV and left lower lobe pneumonia with past medical history significant for severe steroid-dependent COPD , chronic oxygen dependent on 3 L nasal cannula , chronic steroid-dependent ,gastroesophageal reflux disease, former nicotine dependence, esophageal cancer with surgical resection and gastric pull-through, peripheral neuropathy,prostate cancer status post prostatectomy with bilateral pelvic lymph node dissection and stent placement, hypertension, Parkinson's disease, sleep apnea and multiple other medical issues presented to the ER with a few days of difficulty breathing, congestion, mostly nonproductive cough, and fever. Denies hemoptysis. Denies chest pain, palpitations. chest x-ray reported persistent from 11/29/2023, large area of consolidation right lower lung, correlate for pneumonia, underlying neoplasm not excluded. Right lower lobe airspace consolidation consistent with history of gastric pull as per pulmonary. Tmax 100.4, CBC, coagulation and chemistry panels unremarkable. Viral studies negat naeem. Procalcitonin 0.07. Blood, sputum and Legionella cultures pending. Aggressive pulmonary toileting with nebulized bronchodilators ATC, IV steroids, long-acting beta agonist, empiric antibiotics/Rocephin and azithromycin. PPI for GI prophylaxis pulmonary following. BLANCA hose/compression for DVT prophylaxis. Significant clinical improvement. Denies chest pain, palpitations or increased shortness of breath. Maintaining O2 sats in the high 90s on 4 L which can be tapered down to 3 L, patient's baseline. Afebrile. Legionella negative. Sputum culture in progress, preliminary blood cultures reporting no growth after 24 hours. Patient will be discharged home today in a stable condition with guarded prognosis pending final DC recommendations and clearance per pulmonary. The impression and plan of care has been dictated as directed. : I performed a history and examination of this patient, discussed the same with the dictator. I agree with the dictator's note ,documented as a scribe. Any additional findings or plans will be noted. Patient Condition at Discharge: Stable Plan - Discharge Summary New Discharge Prescriptions: New predniSONE 10 mg PO DIRECTED #30 tab Amoxic-Pot Clav 875-125Mg [Augmentin 875-125] 1 tab PO BID 5 Days #10 tab Continue Omeprazole 40 mg PO HS cloNIDine HCL [Catapres] 0.1 mg PO BID Losartan Potassium 100 mg PO DAILY Omeprazole 20 mg PO BID rOPINIRole HCL [Requip] 2 mg PO BID DULoxetine HCL [Cymbalta] 60 mg PO DAILY Baclofen [Lioresal] 20 mg PO HS Fluticasone/Umeclidin/Vilanter [Trelegy Ellipta 200-62.5-25] 1 puff INHALATION RT-DAILY Cyclobenzaprine [Flexeril] 10 mg PO TID PRN PRN Reason: Muscle Spasm Magnesium Oxide [Mag-Ox] 250 mg PO DAILY Ipratropium-Albuterol Nebulize [Duoneb 0.5 mg-3 mg/3 ml Soln] 3 ml INHALATION RT-QID PRN PRN Reason: Shortness Of Breath Albuterol Sulfate [Albuterol Sulfate Hfa] 2 puff INHALATION RT-QID PRN PRN Reason: Shortness Of Breath predniSONE 10 mg PO DAILY #0 Discharge Medication List Omeprazole 40 mg PO HS 04/26/17 [History] cloNIDine HCL [Catapres] 0.1 mg PO BID 10/02/18 [History] Losartan Potassium 100 mg PO DAILY 03/20/19 [History] Omeprazole 20 mg PO BID 08/19/19 [History] Fluticasone/Umeclidin/Vilanter [Trelegy Ellipta 200-62.5-25] 1 puff INHALATION RT-DAILY 05/25/21 [History] Baclofen [Lioresal] 20 mg PO HS 07/04/22 [History] DULoxetine HCL [Cymbalta] 60 mg PO DAILY 07/04/22 [History] rOPINIRole HCL [Requip] 2 mg PO BID 07/04/22 [History] Albuterol Sulfate [Albuterol Sulfate Hfa] 2 puff INHALATION RT-QID PRN 10/23/23 [History] Cyclobenzaprine [Flexeril] 10 mg PO TID PRN 10/23/23 [History] Ipratropium-Albuterol Nebulize [Duoneb 0.5 mg-3 mg/3 ml Soln] 3 ml INHALATION RT-QID PRN 10/23/23 [History] Magnesium Oxide [Mag-Ox] 250 mg PO DAILY 10/23/23 [History] Amoxic-Pot Clav 875-125Mg [Augmentin 875-125] 1 tab PO BID 5 Days #10 tab 01/10/24 [Rx] predniSONE 10 mg PO DIRECTED #30 tab 01/10/24 [Rx] predniSONE 10 mg PO DAILY #0 01/10/24 [Rx] Follow up Appointment(s)/Referral(s): Alex Robbins DO [Primary Care Provider] - 1-2 days
[2024-01-11 05:27] LABS: Anisocytosis Slight; HCT 35.4 % (39.0-53.0); HGB 10.9 gm/dL (13.0-17.5); Hypochromasia Marked; MCH 27.6 pg (25.0-35.0); MCHC 30.6 g/dL (31.0-37.0); MCV 90.2 fL (80.0-100.0); Platelet Count 295 k/uL (150-450); RBC 3.93 m/uL (4.30-5.90); RDW 16.4 % (11.5-15.5); WBC 14.7 k/uL (3.8-10.6)
[2024-01-11 06:00] LABS: African American GFR (CKD) >90 (>60 ml/min/1.73 sqM); Anion Gap 8 mmol/L; Blood Urea Nitrogen 29 mg/dL (9-20); Calcium 8.5 mg/dL (8.4-10.2); Carbon Dioxide 25 mmol/L (22-30); Chloride 108 mmol/L (98-107); Glucose 139 mg/dL (74-99); Non-African American GFR(CKD) >90 (>60 ml/min/1.73 sqM); Potassium 4.4 mmol/L (3.5-5.1); Sodium 141 mmol/L (137-145)
--- NOTE | 2024-01-11 06:58 | XR ---
EXAMINATION TYPE: XR chest 2V DATE OF EXAM: 01/11/2024 COMPARISON: 01/09/2024 HISTORY: COPD TECHNIQUE: Frontal and lateral views of the chest are obtained. FINDINGS: There is a partially consolidative opacity involving the right mid-lower lung zone unchanged compared to previous. Findings highly suspicious for pneumonia. The left lung is clear. The pulmonary vasculature is not grossly congested. The heart size is normal for the technique. There is no pneumothorax. There is a reverse right shoulder prosthesis. IMPRESSION: Acute cardiopulmonary disease involving the right lung unchanged compared to previous. Findings most consistent with pneumonia .Short-term follow-up to resolution is recommended.
--- NOTE | 2024-01-11 14:25 | P.PN ---
Subjective Progress Note Date: 01/11/24 Pleasant 68-year-old male patient with known history of esophageal cancer and recurrent respiratory tract infections or pneumonias. The patient was recently hospitalized back in November 2023 f and acute stroke exacerbation and acute hypoxic respiratory failure with suspected pneumonia. Noted the patient has COPD with an FEV1 of 48% predicted the baseline. Patient has been also has had previous hospitalization for an acute RSV infection has had previous hospitalization for RSV infections. He has been maintained on Trelegy Ellipta on an outpatient basis regarding his COPD. He also has previous history of esophageal cancer and esophagectomy and gastric fall and the most recent PET/CT that was done on this patient on 04/06/2023 showed no significant metabolic activity within the chest to indicate any residual disease. The patient is also known to have previous history of prostate cancer post prostatectomy, hypertension, and has issues with peripheral neuropathy. The patient is coming in with increased cough and congestion and shortness of breath. The patient's white cell count currently is at 9.2 with a white cell count of 12.4. Coagulation profiles been within normal limits. The electrolytes are all normal. Viral screen has been negative and t procalcitonin level was not eleva manuel at 0.07. The patient is currently on 4 L of O2 nasal cannula. Has limited cough and congestion. Placed on Rocephin and Zithromax. Placed on IV Solu- Medrol. Placed on Symbicort as maintenance and DuoNeb updrafts. The chest x- ray was done showed persistent large area of opacity in the right lung base and this is related to a gastric polyp. Superimposed infection within the same area cannot be completely excluded. Clinically, the patient looks stable and does not look toxic at this point in time. On today's evaluation of 01/10/2024, I am seeing the patient for a follow-up. Remains congested and bronchospastic and wheezy. Not ready for discharge yet. Procalcitonin level has been 0 and the patient is on bronchodilators and steroids and the patient is covered with a combination of Rocephin and Zithromax in addition to bronchodilators and steroids. On today's evaluation of 01/11/2024, the patient is still congested and bronchospastic although less compared to yesterday. Chest x-ray shows no acute findings or changes compared to yesterday. Clinically stable. Oxygenation st able. The patient still requiring O2 at 3 L with a pulse ox of 96%. No other significant events otherwise. Objective - Vital Signs Vital signs: Vital Signs Temp 98.1 F 01/11/24 13:12 Pulse 89 01/11/24 13:12 Resp 17 01/11/24 13:12 BP 151/84 01/11/24 13:12 Pulse Ox 96 01/11/24 13:12 FiO2 Intake & Output 01/10/24 01/11/24 01/11/24 18:59 06:59 18:59 Intake Total 720 Output Total 0 Balance 720 0 Intake: Oral 720 Output: Stool 0 Other: Voiding Method Toilet # Voids 2 2 - Labs CBC & Chem 7: 01/11/24 05:00 01/11/24 05:00 Labs: Abnormal Lab Results - Last 24 Hours (Table) 01/11/24 01/11/24 Range/Units 05:00 05:00 WBC 14.7 H (3.8-10.6) k/uL RBC 3.93 L (4.30-5.90) m/uL Hgb 10.9 L (13.0-17.5) gm/dL Hct 35.4 L (39.0-53.0) % MCHC 30.6 L (31.0-37.0) g/dL RDW 16.4 H (11.5-15.5) % Chloride 108 H (98-107) mmol/L BUN 29 H (9-20) mg/dL Creatinine 0.58 L (0.66-1.25) mg/dL Glucose 139 H (74-99) mg/dL Microbiology - Last 24 Hours (Table) 01/08/24 15:57 Blood Culture - Preliminary Blood 01/08/24 15:42 Blood Culture - Preliminary Blood Assessment and Plan Plan: Acute exacerbation of COPD, with a suspected right lower lobe pneumonia/aspiration/chemical pneumonitis. There is some increased consolidation in the right lung base at the area where the patient has a gastric fall. Procalcitonin level has been negative. Viral screen has been negative. ay is free of any acute pulm infiltrates is consistent with previous gastric surgery/Jim following esophageal resection Acute hypoxic respiratory failure the patient is currently on 4 L O2 nasal cannula Recurrent COPD exacerbation, requiring several hospitalizations, the patient is maintained on Trelegy Ellipta on outpatient basis. Previous history of COPD with an FEV1 of 48% of predicted at baseline. The patient had a recent hospitalization in October for the same and the patient was positive for RSV infection and at that time he was supported with a BiPAP and subsequently his condition was further optimized. Noted the patient has been maintained on Trelegy Ellipta on outpatient basis as maintenance for COPD Recent hospitalization on for an acute s COPD exacerbation on 10/24/2023 and this was attributed to an acute RSV infection History of esophageal cancer with a esophagectomy and gastric polyp, most recent PET/CT from March 2023 showed no evidence of any metabolic activity within the chest History of prostate cancer with a previous prostatectomy Hypertension Peripheral neuropathy Acid reflux secondary to above Plan Repeat chest x-ray i from today was noted and there is no interval change Continue same treatment Remains bronchospastic and wheezy, yet improved compared to yesterday Titrate oxygen flow to maintain saturation above 90% Continue same antibiotic coverage Procalcitonin level is negative and the patient can have a possible aspiration /chemical pneumonitis as there is some new haziness in the right lower lobe area. Continue same treatment Continue DuoNeb nebulizer treatments [id number] 4 times a day Symbicort as maintenance as a replacement for Trelegy Ellipta Utilized home medications Titrate oxygen flow to maintain saturation above 90% Will continue to follow.
--- NOTE | 2024-01-11 22:03 | PN ---
PROGRESS NOTE DATE OF SERVICE: 01/11/2024 SUBJECTIVE: This is a 68-year-old gentleman, who was admitted with COPD and respiratory failure, who is being closely monitored. The patient evaluated by Dr. Mckenzie also. The most recent chest x-ray done, which I reviewed today, it showed significant pneumonia right more than the left. There is no history of any fever or rigors. PAST MEDICAL HISTORY: Reviewed. REVIEW OF SYSTEMS: A 14-point review of systems is negative except as mentioned above. CURRENT MEDICATIONS: Reviewed include: 1. DuoNeb. 2. Symbicort. Rest of the medications rest of the chart is also noted. PHYSICAL EXAMINATION: VITAL SIGNS: Pulse is 76, blood pressure n, and respirations 18. CHEST: Bilateral scattered rhonchi and crackles. ABDOMEN: Soft. Nontender. NERVOUS SYSTEM: Nonfocal. LABORATORY DATA: WBC 14.7, rest of the labs are noted. ASSESSMENT: 1. Chronic obstructive pulmonary disease, acute exacerbation. 2. Acute bilateral pneumonia, right more than the left. 3. Underlying neoplasm on the right side, not completely ruled out. 4. Hypertension. 5. History of esophageal cancer with history of partial esophagectomy. 6. History of nicotine dependence. 7. Obesity. RECOMMENDATIONS: Recommend to continue current medications and symptomatic treatment. Chest x- ray about 2 years ago which showed postsurgical changes. Most recent chest x-ray also compared. Prognosis guarded. Further recommendations to follow. See orders for details. Continue with bronchodilators and IV steroids and rest of the medications. We will cut down the IV fluids. MMJAQUIL / FRANCINEN: [id number] / MTDD
[2024-01-12 10:12] LABS: BUN/Creat Ratio 34.14 Ratio (12.00-20.00); Blood Urea Nitrogen 23.9 mg/dL (9.0-27.0); Calcium 8.6 mg/dL (8.7-10.3); Chloride 104 mmol/L (96-109); Glucose 138 mg/dL (70-110); Potassium 5.2 mmol/L (3.5-5.5); Sodium 142 mmol/L (135-145)
[2024-01-12 11:16] LABS: Basophils # (A) 0.06 X 10*3/uL (0.00-0.10); Basophils % (A) 0.4 %; Eosinophils # (A) 0.01 X 10*3/uL (0.04-0.35); Eosinophils % (A) 0.1 %; HCT 36.5 % (39.6-50.0); HGB 10.9 g/dL (13.0-17.0); Lymphocytes # (A) 0.51 X 10*3/uL (0.90-5.00); Lymphocytes % (A) 3.7 %; MCH 27.2 pg (27.0-32.0); MCHC 29.9 g/dL (32.0-37.0); Mean Platelet Volume 9.6 FL (9.5-12.2); Monocytes # (A) 0.29 X 10*3/uL (0.20-1.00); Monocytes % (A) 2.1 %; NRBC Per 100 WBC 0 X 10*3/uL (0.00-0.01); Neutrophils # (A) 12.46 X 10*3/uL (1.80-7.70); Neutrophils % (A) 89.6 %; Platelet Count 297 X 10*3/uL (140-440); RBC 4.01 X 10*6/uL (4.40-5.60); RDW 16.1 % (11.5-14.5)
--- NOTE | 2024-01-12 13:17 | P.PN ---
Subjective Progress Note Date: 01/12/24 Pleasant 68-year-old male patient with known history of esophageal cancer and recurrent respiratory tract infections or pneumonias. The patient was recently hospitalized back in November 2023 f and acute stroke exacerbation and acute hypoxic respiratory failure with suspected pneumonia. Noted the patient has COPD with an FEV1 of 48% predicted the baseline. Patient has been also has had previous hospitalization for an acute RSV infection has had previous hospitalization for RSV infections. He has been maintained on Trelegy Ellipta on an outpatient basis regarding his COPD. He also has previous history of esophageal cancer and esophagectomy and gastric fall and the most recent PET/CT that was done on this patient on 04/06/2023 showed no significant metabolic activity within the chest to indicate any residual disease. The patient is also known to have previous history of prostate cancer post prostatectomy, hypertension, and has issues with peripheral neuropathy. The patient is coming in with increased cough and congestion and shortness of breath. The patient's white cell count currently is at 9.2 with a white cell count of 12.4. Coagulation profiles been within normal limits. The electrolytes are all normal. Viral screen has been negative and t procalcitonin level was not eleva manuel at 0.07. The patient is currently on 4 L of O2 nasal cannula. Has limited cough and congestion. Placed on Rocephin and Zithromax. Placed on IV Solu- Medrol. Placed on Symbicort as maintenance and DuoNeb updrafts. The chest x- ray was done showed persistent large area of opacity in the right lung base and this is related to a gastric polyp. Superimposed infection within the same area cannot be completely excluded. Clinically, the patient looks stable and does not look toxic at this point in time. On today's evaluation of 01/10/2024, I am seeing the patient for a follow-up. Remains congested and bronchospastic and wheezy. Not ready for discharge yet. Procalcitonin level has been 0 and the patient is on bronchodilators and steroids and the patient is covered with a combination of Rocephin and Zithromax in addition to bronchodilators and steroids. On today's evaluation of 01/11/2024, the patient is still congested and bronchospastic although less compared to yesterday. Chest x-ray shows no acute findings or changes compared to yesterday. Clinically stable. Oxygenation st able. The patient still requiring O2 at 3 L with a pulse ox of 96%. No other significant events otherwise. On today's evaluation of 01/12/2024, the patient is feeling better. The patient is less short of breath. Cough and congestion is improved compared to yesterday. Remains on DuoNeb updrafts. Remains on IV Solu-Medrol. Remains on Symbicort. Labs from today shows a white cell count of 13 hemoglobin 10.9 and platelet count of 297. Normal electrolytes. Procalcitonin level has been negat naeem. Sputum sample was also negative. Objective - Vital Signs Vital signs: Vital Signs Temp 97.6 F 01/12/24 07:00 Pulse 78 01/12/24 08:53 Resp 18 01/12/24 07:00 BP 183/98 01/12/24 07:00 Pulse Ox 98 01/12/24 07:00 FiO2 Intake & Output 01/11/24 01/12/24 01/12/24 18:59 06:59 18:59 Intake Total 236 Output Total 0 Balance 0 236 Intake: Oral 236 Output: Stool 0 Other: Voiding Method Toilet # Voids 2 2 - Exam GENERAL EXAM: Alert, 68-year-old white male, in some mild respiratory distress. He is diaphoretic. He is tachypneic. He speaks in short sentences. He is on 4 L/min nasal cannula. HEAD: Normocephalic and atraumatic EYES: Normal reaction of pupils, equal size. NOSE: Clear with pink turbinates. THROAT: No erythema or exudates. NECK: No masses, no JVD. CHEST: No chest wall deformity. LUNGS: Equal air entry with end expiratory wheezes heard throughout. No crackles. No focal dullness. N CVS: S1 and S2 normal with no audible murmur, regular rhythm. No extra heart sounds ABDOMEN: No hepatosplenomegaly, active bowel sounds, no guarding or rigidity. SPINE: No scoliosis or deformity SKIN: No rashes CENTRAL NERVOUS SYSTEM: No focal deficits, tone is normal in all 4 extremities. EXTREMITIES: There is bilateral 3+ pitting edema. No clubbing, or cyanosis. Peripheral pulses are intact. - Labs CBC & Chem 7: 01/12/24 05:27 01/12/24 05:27 Labs: Abnormal Lab Results - Last 24 Hours (Table) 01/12/24 Range/Units 05:27 BUN/Creatinine Ratio 34.14 H (12.00-20.00) Ratio Glucose 138 H (70-110) mg/dL Calcium 8.6 L (8.7-10.3) mg/dL Microbiology - Last 24 Hours (Table) 01/09/24 20:30 Gram Stain - Final Sputum Sputum Culture - Final 01/08/24 15:57 Blood Culture - Preliminary Blood 01/08/24 15:42 Blood Culture - Preliminary Blood Assessment and Plan Plan: Acute exacerbation of COPD, with a suspected right lower lobe pneumonia/aspiration/chemical pneumonitis. There is some increased consolidation in the right lung base at the area where the patient has a gastric fall. Procalcitonin level has been negative. Viral screen has been negative. Rule out aspiration/chemical pneumonitis. Sputum culture has been negative. Acute hypoxic respiratory failure the patient is currently on 4 L O2 nasal cannula Recurrent COPD exacerbation, requiring several hospitalizations, the patient is maintained on Trelegy Ellipta on outpatient basis. Previous history of COPD with an FEV1 of 48% of predicted at baseline. The patient had a recent hospitalization in October for the same and the patient was positive for RSV infection and at that time he was supported with a BiPAP and subsequently his condition was further optimized. Noted the patient has been maintained on Trelegy Ellipta on outpatient basis as maintenance for COPD Recent hospitalization on for an acute s COPD exacerbation on 10/24/2023 and this was attributed to an acute RSV infection History of esophageal cancer with a esophagectomy and gastric polyp, most recent PET/CT from March 2023 showed no evidence of any metabolic activity within the ch est History of prostate cancer with a previous prostatectomy Hypertension Peripheral neuropathy Acid reflux secondary to above Plan Continue same treatment, that the patient can be transition to prednisone burst taper as of tomorrow. Remains bronchospastic and wheezy, yet improved compared to yesterday Titrate oxygen flow to maintain saturation above 90% Antibiotics has been discontinued Procalcitonin level is negative and the patient can have a possible aspiration /chemical pneumonitis as there is some new haziness in the right lower lobe area. Continue same treatment Continue DuoNeb nebulizer treatments [id number] 4 times a day Symbicort as maintenance as a replacement for Trelegy Ellipta Utilized home medications Titrate oxygen flow to maintain saturation above 90% Will continue to follow.
--- NOTE | 2024-01-12 13:55 | PN ---
PROGRESS NOTE DATE OF SERVICE: 01/12/2024 SUBJECTIVE: This is a 68-year-old gentleman who was admitted with COPD with acute exacerbation, also had acute bilateral pneumonia. The patient is being closely monitored. No chest pain. No palpitations. No fever. PHYSICAL EXAMINATION: VITAL SIGNS: Pulse is 78, blood pressure 183/98, respiratory rate 18. CHEST: Few scattered rhonchi. ABDOMEN: Soft. NERVOUS SYSTEM: Nonfocal. LABORATORY DATA: WBC 13.9. ASSESSMENT: 1. Chronic obstructive pulmonary disease exacerbation. 2. Acute bilateral pneumonia, right more than the left. 3. Underlying neoplasm of the right side, not completely ruled out. 4. Hypertension. 5. History of esophageal cancer with history of partial esophagectomy. 6. History of nicotine dependence. 7. Obesity. 8. Elevated WBC. RECOMMENDATIONS: Recommend to continue current continue rest of the medications. Continue the antibiotics. Otherwise, closely follow with Dr. Mckenzie and continue the steroids. Further recommendations to follow. Repeat labs in the morning. Dr. Robbins will follow tomorrow. NICOLASAL / FRANCINEN: [id number] / MTDD
[2024-01-13 08:34] LABS: HCT 34.4 % (39.6-50.0); HGB 10.6 g/dL (13.0-17.0); MCHC 30.8 g/dL (32.0-37.0); MCV 87.5 FL (80.0-97.0); NRBC Per 100 WBC 0 X 10*3/uL (0.00-0.01); Platelet Count 306 X 10*3/uL (140-440); RBC 3.93 X 10*6/uL (4.40-5.60); RDW 15.9 % (11.5-14.5); WBC 12.34 X 10*3/uL (4.50-10.00)
[2024-01-13 08:39] LABS: BUN/Creat Ratio 31.86 Ratio (12.00-20.00); Blood Urea Nitrogen 22.3 mg/dL (9.0-27.0); Carbon Dioxide 27.6 mmol/L (21.6-31.8); Chloride 99 mmol/L (96-109); Glucose 139 mg/dL (70-110); Potassium 4.6 mmol/L (3.5-5.5); Sodium 138 mmol/L (135-145)
[2024-01-13 08:40] LABS: Calcium 8.8 mg/dL (8.7-10.3)
[2024-01-13 09:06] LABS: Basophils # (M) 0 X 10*3/uL (0.00-0.10); Eosinophils # (M) 0 X 10*3/uL (0.04-0.35); Lymphocytes # (M) 0 X 10*3/uL (0.90-5.00); Metamyelocytes % 2 % (0-0); Monocytes # (M) 0.37 X 10*3/uL (0.20-1.00); Neutrophils # (M) 11.72 X 10*3/uL (1.80-7.70); Neutrophils % (M) 95 %; RBC Morphology Normal (Normal)
[2024-01-13] MEDS: predniSONE 20 MG TAB PO SCH (10:00)
--- NOTE | 2024-01-13 14:20 | P.PN ---
Subjective Progress Note Date: 01/13/24 Pleasant 68-year-old male patient with known history of esophageal cancer and recurrent respiratory tract infections or pneumonias. The patient was recently hospitalized back in November 2023 f and acute stroke exacerbation and acute hypoxic respiratory failure with suspected pneumonia. Noted the patient has COPD with an FEV1 of 48% predicted the baseline. Patient has been also has had previous hospitalization for an acute RSV infection has had previous hospitalization for RSV infections. He has been maintained on Trelegy Ellipta on an outpatient basis regarding his COPD. He also has previous history of esophageal cancer and esophagectomy and gastric fall and the most recent PET/CT that was done on this patient on 04/06/2023 showed no significant metabolic activity within the chest to indicate any residual disease. The patient is also known to have previous history of prostate cancer post prostatectomy, hypertension, and has issues with peripheral neuropathy. The patient is coming in with increased cough and congestion and shortness of breath. The patient's white cell count currently is at 9.2 with a white cell count of 12.4. Coagulation profiles been within normal limits. The electrolytes are all normal. Viral screen has been negative and t procalcitonin level was not elevat ed at 0.07. The patient is currently on 4 L of O2 nasal cannula. Has limited cough and congestion. Placed on Rocephin and Zithromax. Placed on IV Solu- Medrol. Placed on Symbicort as maintenance and DuoNeb updrafts. The chest x- ray was done showed persistent large area of opacity in the right lung base and this is related to a gastric polyp. Superimposed infection within the same area cannot be completely excluded. Clinically, the patient looks stable and does not look toxic at this point in time. On today's evaluation of 01/10/2024, I am seeing the patient for a follow-up. Remains congested and bronchospastic and wheezy. Not ready for discharge yet. Procalcitonin level has been 0 and the patient is on bronchodilators and steroids and the patient is covered with a combination of Rocephin and Zithromax in addition to bronchodilators and steroids. On today's evaluation of 01/11/2024, the patient is still congested and bronchospastic although less compared to yesterday. Chest x-ray shows no acute findings or changes compared to yesterday. Clinically stable. Oxygenation sta ble. The patient still requiring O2 at 3 L with a pulse ox of 96%. No other significant events otherwise. On today's evaluation of 01/12/2024, the patient is feeling better. The patient is less short of breath. Cough and congestion is improved compared to yesterday. Remains on DuoNeb updrafts. Remains on IV Solu-Medrol. Remains on Symbicort. Labs from today shows a white cell count of 13 hemoglobin 10.9 and platelet count of 297. Normal electrolytes. Procalcitonin level has been negative. Sputum sample was also negative. The patient is seen today January 13, 2024 in follow-up on the regular medical floor. He is currently sitting up at the bedside. Awake and alert in no acute distress. He is maintaining O2 saturations in the 90s on 4 L/min per nasal cannula. He does have home oxygen. His FEV1 value was 48% of predicted. Chest x-ray was revealing a right lower lobe infiltrate. Procalcitonin was 0.07. He still has some chest tightness and wheezing. Blood cultures revealed no growth. Sputum culture revealed no growth. White count 12.3. Hemoglobin 10.6. Platelets 306. Sodium 138. Potassium 4.6. Bicarb 28. BUN 22. Creatinine 0.7. Glucose 139. Remains on DuoNeb ventilations, Symbicort, Solu-Medrol. Objective - Vital Signs Vital signs: Vital Signs Temp 98.5 F 01/13/24 07:15 Pulse 84 01/13/24 12:32 Resp 18 01/13/24 07:15 BP 177/93 01/13/24 07:15 Pulse Ox 97 01/13/24 09:35 FiO2 Intake & Output 01/12/24 01/13/24 01/13/24 18:59 06:59 18:59 Intake Total 472 480 354 Output Total 3 0 Balance 469 480 354 Intake: Oral 472 480 354 Output: Urine 3 Stool 0 Other: Voiding Method Toilet # Voids 1 - Exam GENERAL EXAM: Alert, pleasant 68-year-old male, on 4 L/min nasal cannula, no acute distress. HEAD: Normocephalic and atraumatic EYES: Normal reaction of pupils, equal size. NOSE: Clear with pink turbinates. THROAT: No erythema or exudates. NECK: No masses, no JVD. CHEST: No chest wall deformity. LUNGS: Equal air entry with end expiratory wheezes throughout. No crackles. No focal dullness. CVS: S1 and S2 normal with no audible murmur, regular rhythm. No extra heart sounds ABDOMEN: No hepatosplenomegaly, active bowel sounds, no guarding or rigidity. SPINE: No scoliosis or deformity SKIN: No rashes CENTRAL NERVOUS SYSTEM: No focal deficits, tone is normal in all 4 extremities. EXTREMITIES: There is bilateral 1+ pitting edema. No clubbing, or cyanosis. Peripheral pulses are intact. - Labs CBC & Chem 7: 01/13/24 05:32 01/13/24 05:32 Labs: Abnormal Lab Results - Last 24 Hours (Table) 01/13/24 01/13/24 Range/Units 05:32 05:32 WBC 12.34 H (4.50-10.00) X 10*3/uL RBC 3.93 L (4.40-5.60) X 10*6/uL Hgb 10.6 L (13.0-17.0) g/dL Hct 34.4 L (39.6-50.0) % MCHC 30.8 L (32.0-37.0) g/dL RDW 15.9 H (11.5-14.5) % MPV 9.0 L (9.5-12.2) FL Lymphocytes # (Manual) 0 L (0.90-5.00) X 10*3/uL Eosinophils # (Manual) 0 L (0.04-0.35) X 10*3/uL BUN/Creatinine Ratio 31.86 H (12.00-20.00) Ratio Glucose 139 H (70-110) mg/dL Microbiology - Last 24 Hours (Table) 01/09/24 20:30 Gram Stain - Final Sputum Sputum Culture - Final Assessment and Plan Assessment: Acute exacerbation of COPD, with a suspected right lower lobe pneumonia. There is some increased consolidation in the right lung base. Procalcitonin level has been negative. Viral screen has been negative. Rule out aspiration. Sputum culture has been negative. Acute hypoxic respiratory failure the patient is currently on 4 L O2 nasal cannula Recurrent COPD exacerbation, requiring several hospitalizations, the patient is maintained on Trelegy Ellipta on outpatient basis. Previous history of COPD with an FEV1 of 48% of predicted at baseline. The patient had a recent hospitalization in October for the same and the patient was positive for RSV infection and at that time he was supported with a BiPAP and subsequently his condition was further optimized. Noted the patient has been m aintained on Trelegy Ellipta on outpatient basis as maintenance for COPD Recent hospitalization on for an acute s COPD exacerbation on 10/24/2023 and this was attributed to an acute RSV infection History of esophageal cancer with a esophagectomy and gastric polyp, most recent PET/CT from March 2023 showed no evidence of any metabolic activity within the chest History of prostate cancer with a previous prostatectomy Hypertension Peripheral neuropathy Acid reflux secondary to above Plan: The patient was seen and evaluated Labs and medications reviewed Improved but not quite back to baseline Continue bronchodilators, Symbicort Change Solu-Medrol to prednisone taper Titrate down the FiO2 as tolerated We will continue to follow Probable discharge in the a.m. I have personally seen and examined the patient, performed the documentation and the assessment and plan as written. Number of minutes spent on the visit: 10.
--- NOTE | 2024-01-13 15:28 | P.PN ---
Subjective Progress Note Date: 01/13/24 This is a pleasant 68-year-old male who was recently admitted with COPD acute exacerbation also with acute bilateral pneumonia being followed by pulmonary. Patient is continued on IV steroids along with supplemental oxygen. Patient reports continued shortness of breath with exertion. Patient continues on 3 L via nasal cannula and wears this at home. Patient is currently maintained on IV steroids along with DuoNeb treatments and continued antibiotics. Patient is afebrile with no reports of chest pain or palpitations. Patient is tolerating diet with no reported nausea or vomiting. Patient encouraged to increase activity as tolerated. Patient being transition to oral steroids. Review of systems: Constitutional: No reports of fatigue, fever, or chills Cardiovascular: No reports of chest pain or palpitations Respiratory: reports of shortness of breath with continued cough GI: No reports of nausea, no reports of vomiting, no diarrhea : No reports of dysuria or retention Neurovascular: No reports of generalized weakness All medications have been reviewed Active Medications Acetaminophen (Acetaminophen Tab 325 Mg Tab) 650 mg PO Q6HR PRN PRN Reason: Fever and/ or Pain Albuterol/Ipratropium (Ipratropium-Albuterol 3 Ml Neb) 3 ml INHALATION RT-QID [facility] Last Admin: 01/13/24 12:18 Dose: 3 ml Albuterol/Ipratropium (Ipratropium-Albuterol 3 Ml Neb) 3 ml INHALATION RT-Q2H PRN PRN Reason: Shortness Of Breath Or Wheezing Baclofen (Baclofen 10 Mg Tab) 20 mg PO HS [facility] Last Admin: 01/12/24 20:27 Dose: 20 mg Budesonide/Formoterol Fumarate (Symbicort 160-4.5 Mcg Inhaler) 2 puff INHALATION RT-BID [facility] Last Admin: 01/13/24 09:27 Dose: 2 puff Clonidine (Clonidine Hcl 0.1 Mg Tab) 0.1 mg PO BID [facility] Last Admin: 01/13/24 10:00 Dose: 0.1 mg Cyclobenzaprine HCl (Cyclobenzaprine 10 Mg Tab) 10 mg PO TID PRN PRN Reason: Muscle Spasm Duloxetine HCl (Duloxetine Hcl 60 Mg Capsule.Dr) 60 mg PO DAILY [facility] Last Admin: 01/13/24 09:48 Dose: 60 mg Losartan Potassium (Losartan 50 Mg Tab) 100 mg PO DAILY [facility] Last Admin: 01/13/24 09:48 Dose: 100 mg Magnesium Oxide (Magnesium Oxide 400 Mg Tab) 400 mg PO DAILY [facility] Last Admin: 01/13/24 09:48 Dose: 400 mg Miscellaneous Information (Pneumonia Protocol Util[facility]) 1 each PO ONCE PRN PRN Reason: Per Protocol Naloxone HCl (Naloxone 0.4 Mg/Ml 1 Ml Vial) 0.2 mg IVP Q2M PRN PRN Reason: Opioid Reversal Pantoprazole Sodium (Pantoprazole 40 Mg Tablet) 40 mg PO AC-BID [facility] Last Admin: 01/13/24 06:20 Dose: 40 mg Prednisone (Prednisone 20 Mg Tab) 40 mg PO DAILY [facility] Last Admin: 01/13/24 10:00 Dose: 40 mg Ropinirole HCl (Ropinirole Hcl 1 Mg Tab) 2 mg PO BID [facility] Last Admin: 01/13/24 09:48 Dose: 2 mg PHYSICAL EXAMINATION: GENERAL: The patient is alert and oriented x4, Well developed, well nourished. Obese HEENT: Pupils are round and equally reacting to light. EOMI. no scleral icterus. No conjunctival pallor. Normocephalic, atraumatic. No pharyngeal erythema. No thyromegaly. CARDIOVASCULAR: S1 and S2 muffled PULMONARY: diminished breath sounds bilaterally with some faint expiratory wheezing and coarse rhonchi noted. ABDOMEN: soft. Nontender on exam. obese. non-distended, normoactive bowel sounds. No palpable organomegaly. MUSCULOSKELETAL: No joint swelling or deformity. EXTREMITIES: No cyanosis, clubbing, or pedal edema. NEUROLOGICAL: Gross neurological examination did not reveal any focal deficits. SKIN: No rashes. Assessment: Chronic obstructive pulmonary disease, acute exacerbation Acute bilateral pneumonia, right more than left, present on admission Acute on chronic hypoxic respiratory failure secondary to COPD Hypertension History of esophageal cancer with history of partial esophagectomy History of nicotine dependence Obesity with a BMI of 31.6 GERD History of prostate cancer with previous prostatectomy GI prophylaxis DVT prophylaxis Full code Plan: Recommend to continue with current medications and management with pulmonary following. Patient is continued on breathing inhalational treatments and has been transiti on from IV steroids to oral prednisone taper Encouraged to increase activity as tolerated Will discuss with pulmonary in regards to discharge planning, possible discharge in the next 24 hours Due to multiple complex medical issues, prognosis is guarded The impression and plan of care has been dictated by Loni Raymond, nurse practitioner as directed. Dr. Moo MD I have performed a history and examination and MDM of this patient, discussed the same with the dictator, and agree with the dictator's assessment and plan as written ,documented as a scribe. Based on total visit time, I have performed more than 50% of the visit. Any additional findings or plans will be noted. Objective - Vital Signs Vital signs: Vital Signs Temp 98.5 F 01/13/24 07:15 Pulse 84 01/13/24 12:32 Resp 18 01/13/24 07:15 BP 177/93 01/13/24 07:15 Pulse Ox 97 01/13/24 09:35 FiO2 Intake & Output 01/12/24 01/13/24 01/13/24 18:59 06:59 18:59 Intake Total 472 480 354 Output Total 3 0 Balance 469 480 354 Intake: Oral 472 480 354 Output: Urine 3 Stool 0 Other: Voiding Method Toilet # Voids 1 - Labs CBC & Chem 7: 01/13/24 05:32 01/13/24 05:32 Labs: Abnormal Lab Results - Last 24 Hours (Table) 01/13/24 01/13/24 Range/Units 05:32 05:32 WBC 12.34 H (4.50-10.00) X 10*3/uL RBC 3.93 L (4.40-5.60) X 10*6/uL Hgb 10.6 L (13.0-17.0) g/dL Hct 34.4 L (39.6-50.0) % MCHC 30.8 L (32.0-37.0) g/dL RDW 15.9 H (11.5-14.5) % MPV 9.0 L (9.5-12.2) FL Lymphocytes # (Manual) 0 L (0.90-5.00) X 10*3/uL Eosinophils # (Manual) 0 L (0.04-0.35) X 10*3/uL BUN/Creatinine Ratio 31.86 H (12.00-20.00) Ratio Glucose 139 H (70-110) mg/dL
[2024-01-14] MEDS: FUROSEMIDE 10 MG/ML 4 ML VIAL IV SCH (08:55)
--- NOTE | 2024-01-14 12:09 | P.PN ---
Subjective Progress Note Date: 01/14/24 Pleasant 68-year-old male patient with known history of esophageal cancer and recurrent respiratory tract infections or pneumonias. The patient was recently hospitalized back in November 2023 f and acute stroke exacerbation and acute hypoxic respiratory failure with suspected pneumonia. Noted the patient has COPD with an FEV1 of 48% predicted the baseline. Patient has been also has had previous hospitalization for an acute RSV infection has had previous hospitalization for RSV infections. He has been maintained on Trelegy Ellipta on an outpatient basis regarding his COPD. He also has previous history of esophageal cancer and esophagectomy and gastric fall and the most recent PET/CT that was done on this patient on 04/06/2023 showed no significant metabolic activity within the chest to indicate any residual disease. The patient is also known to have previous history of prostate cancer post prostatectomy, hypertension, and has issues with peripheral neuropathy. The patient is coming in with increased cough and congestion and shortness of breath. The patient's white cell count currently is at 9.2 with a white cell count of 12.4. Coagulation profiles been within normal limits. The electrolytes are all normal. Viral screen has been negative and t procalcitonin level was not elevat ed at 0.07. The patient is currently on 4 L of O2 nasal cannula. Has limited cough and congestion. Placed on Rocephin and Zithromax. Placed on IV Solu- Medrol. Placed on Symbicort as maintenance and DuoNeb updrafts. The chest x- ray was done showed persistent large area of opacity in the right lung base and this is related to a gastric polyp. Superimposed infection within the same area cannot be completely excluded. Clinically, the patient looks stable and does not look toxic at this point in time. On today's evaluation of 01/10/2024, I am seeing the patient for a follow-up. Remains congested and bronchospastic and wheezy. Not ready for discharge yet. Procalcitonin level has been 0 and the patient is on bronchodilators and steroids and the patient is covered with a combination of Rocephin and Zithromax in addition to bronchodilators and steroids. On today's evaluation of 01/11/2024, the patient is still congested and bronchospastic although less compared to yesterday. Chest x-ray shows no acute findings or changes compared to yesterday. Clinically stable. Oxygenation sta ble. The patient still requiring O2 at 3 L with a pulse ox of 96%. No other significant events otherwise. On today's evaluation of 01/12/2024, the patient is feeling better. The patient is less short of breath. Cough and congestion is improved compared to yesterday. Remains on DuoNeb updrafts. Remains on IV Solu-Medrol. Remains on Symbicort. Labs from today shows a white cell count of 13 hemoglobin 10.9 and platelet count of 297. Normal electrolytes. Procalcitonin level has been negative. Sputum sample was also negative. The patient is seen today January 13, 2024 in follow-up on the regular medical floor. He is currently sitting up at the bedside. Awake and alert in no acute distress. He is maintaining O2 saturations in the 90s on 4 L/min per nasal cannula. He does have home oxygen. His FEV1 value was 48% of predicted. Chest x-ray was revealing a right lower lobe infiltrate. Procalcitonin was 0.07. He still has some chest tightness and wheezing. Blood cultures revealed no growth. Sputum culture revealed no growth. White count 12.3. Hemoglobin 10.6. Platelets 306. Sodium 138. Potassium 4.6. Bicarb 28. BUN 22. Creatinine 0.7. Glucose 139. Remains on DuoNeb ventilations, Symbicort, Solu-Medrol. The patient is seen today January 14, 2024 in follow-up on the regular medical floor. He is awake and alert in no acute distress. Breathing easier today compared to yesterday. He is maintaining O2 saturations in the upper 90s on 3 L/min per nasal cannula. He has been slow to progress. Culture revealed no growth. Sputum culture revealed no growth. No new labs today. He is continued on DuoNeb inhalations, Symbicort, prednisone taper. Objective - Vital Signs Vital signs: Vital Signs Temp 98.0 F 01/14/24 08:00 Pulse 76 01/14/24 11:51 Resp 16 01/14/24 08:00 BP 179/95 01/14/24 08:00 Pulse Ox 98 01/14/24 08:38 FiO2 Intake & Output 01/13/24 01/14/24 01/14/24 18:59 06:59 18:59 Intake Total 664 Balance 664 Intake: Oral 664 Other: Voiding Method Toilet # Voids 3 2 - Exam GENERAL EXAM: Alert, pleasant 68-year-old male, eating up at the bedside on 3 L/min nasal cannula, no acute distress. HEAD: Normocephalic and atraumatic EYES: Normal reaction of pupils, equal size. NOSE: Clear with pink turbinates. THROAT: No erythema or exudates. NECK: No masses, no JVD. CHEST: No chest wall deformity. LUNGS: Equal air entry with end expiratory wheezes throughout. Faint crackles. No focal dullness. CVS: S1 and S2 normal with no audible murmur, regular rhythm. No extra heart sounds ABDOMEN: No hepatosplenomegaly, active bowel sounds, no guarding or rigidity. SPINE: No scoliosis or deformity SKIN: No rashes CENTRAL NERVOUS SYSTEM: No focal deficits, tone is normal in all 4 extremities. EXTREMITIES: There is bilateral 1+ pitting edema. No clubbing, or cyanosis. Peripheral pulses are intact. - Labs CBC & Chem 7: 01/13/24 05:32 01/13/24 05:32 Labs: Abnormal Lab Results - Last 24 Hours (Table) 01/13/24 Range/Units 05:32 Neutrophils # (Manual) 11.72 H (1.80-7.70) X 10*3/uL Microbiology - Last 24 Hours (Table) 01/08/24 15:57 Blood Culture - Final Blood 01/08/24 15:42 Blood Culture - Final Blood Assessment and Plan Assessment: Acute exacerbation of COPD, with a suspected right lower lobe pneumonia. There is some increased consolidation in the right lung base. Procalcitonin level has been negative. Viral screen has been negative. Rule out aspiration. Sputum culture has been negative. Suspect some fluid volume overload. Lasix was added. Acute hypoxic respiratory failure the patient is currently on 3 L O2 nasal cannula Recurrent COPD exacerbation, requiring several hospitalizations, the patient is maintained on Trelegy Ellipta on outpatient basis. Previous history of COPD with an FEV1 of 48% of predicted at baseline. The patient had a recent hospitalization in October for the same and the patient was positive for RSV infection and at that time he was supported with a BiPAP and subsequently his condition was further optimized. Noted the patient has been maintained on Trelegy Ellipta on outpatient basis as maintenance for COPD Recent hospitalization on for an acute s COPD exacerbation on 10/24/2023 and this was attributed to an acute RSV infection History of esophageal cancer with a esophagectomy and gastric polyp, most recent PET/CT from March 2023 showed no evidence of any metabolic activity within the chest History of prostate cancer with a previous prostatectomy Hypertension Peripheral neuropathy Acid reflux secondary to above Plan: The patient was seen and evaluated Medications reviewed Improved but not back to baseline Continue bronchodilators, Symbicort, prednisone Add Lasix 40 mg IV every 12 hours Follow-up chest x-ray in the a.m. Follow-up labs in a.m. Titrate down the FiO2 as tolerated Increase his activity as tolerated This patient was seen independently by the pulmonary nurse practitioner addressing pulmonary issues I have personally seen and examined the patient, performed the documentation and the assessment and plan as written. Number of minutes spent on the visit: 25.
--- NOTE | 2024-01-14 15:01 | P.PN ---
Subjective Progress Note Date: 01/14/24 This is a pleasant 68-year-old male who was recently admitted with COPD acute exacerbation also with acute bilateral pneumonia being followed by pulmonary. Patient is continued on IV steroids along with supplemental oxygen. Patient reports continued shortness of breath with exertion. Patient continues on 3 L via nasal cannula and wears this at home. Patient is currently maintained on IV steroids along with DuoNeb treatments and continued antibiotics. Patient is afebrile with no reports of chest pain or palpitations. Patient is tolerating diet with no reported nausea or vomiting. Patient encouraged to increase activity as tolerated. Patient being transition to oral steroids. 01/14/2024 Patient is seen and evaluated in follow-up today continues on breathing inhalational treatments along with steroid taper being followed by pulmonary. Patient continues on supplemental oxygen continues to report dyspnea with exertion. Patient having some mild volume overload and being started on IV Lasix. Patient to be continued on fluid restrictions and discussed with the patient. Encouraged to increase activity as tolerated. Plan is for follow-up chest x-ray in the morning and will follow-up with repeat labs as well as patient is maintained on Lasix to monitor kidney functions along with electrolytes. Patient is afebrile with no reported chest pain or palpitations. Patient is tolerating diet and denies any nausea or vomiting. Review of systems: Constitutional: No reports of fatigue, fever, or chills Cardiovascular: No reports of chest pain or palpitations Respiratory: reports of shortness of breath with continued cough GI: No reports of nausea, no reports of vomiting, no diarrhea : No reports of dysuria or retention Neurovascular: No reports of generalized weakness, reports to feeling bloated All medications have been reviewed PHYSICAL EXAMINATION: GENERAL: The patient is alert and oriented x4, Well developed, well nourished. Obese HEENT: Pupils are round and equally reacting to light. EOMI. no scleral icterus. No conjunctival pallor. Normocephalic, atraumatic. No pharyngeal erythema. No thyromegaly. CARDIOVASCULAR: S1 and S2 muffled PULMONARY: diminished breath sounds bilaterally with some faint expiratory wheezing and coarse rhonchi noted. ABDOMEN: soft. Nontender on exam. obese. non-distended, normoactive bowel sounds. No palpable organomegaly. MUSCULOSKELETAL: No joint swelling or deformity. EXTREMITIES: No cyanosis, clubbing, or pedal edema. Mild upper and lower bilateral extremities noted with some volume overload, nonpitting NEUROLOGICAL: Gross neurological examination did not reveal any focal deficits. SKIN: No rashes. Assessment: Chronic obstructive pulmonary disease, acute exacerbation Acute bilateral pneumonia, right more than left, present on admission Acute on chronic hypoxic respiratory failure secondary to COPD Hypertension History of esophageal cancer with history of partial esophagectomy History of nicotine dependence Obesity with a BMI of 31.6 GERD History of prostate cancer with previous prostatectomy GI prophylaxis DVT prophylaxis Full code Plan: Recommend to continue with current medications and management with pulmonary following. Patient is continued on breathing inhalational treatments and has been transitioned from IV steroids to oral prednisone taper Patient with some upper and lower extremity swelling, is being started on Lasix and will follow-up with repeat labs in the a.m. to monitor kidney functions and electrolytes. Repeat chest x-ray ordered for a.m. as well Encouraged to increase activity as tolerated Due to multiple complex medical issues, prognosis is guarded Possible discharge in the next 24 to 48 hours. The impression and plan of care has been dictated by Loni Raymond, nurse practitioner as directed. Dr. Moo MD I have performed a history and examination and MDM of this patient, discussed the same with the dictator, and agree with the dictator's assessment and plan as written ,documented as a scribe. Based on total visit time, I have performed more than 50% of the visit. Any additional findings or plans will be noted. Objective - Vital Signs Vital signs: Vital Signs Temp 98.0 F 01/14/24 08:00 Pulse 76 01/14/24 11:51 Resp 16 01/14/24 08:00 BP 179/95 01/14/24 08:00 Pulse Ox 98 01/14/24 08:38 FiO2 Intake & Output 01/13/24 01/14/24 01/14/24 18:59 06:59 18:59 Intake Total 664 Balance 664 Intake: Oral 664 Other: Voiding Method Toilet # Voids 3 2 - Labs CBC & Chem 7: 01/13/24 05:32 01/13/24 05:32 Labs: Abnormal Lab Results - Last 24 Hours (Table) 01/13/24 Range/Units 05:32 Neutrophils # (Manual) 11.72 H (1.80-7.70) X 10*3/uL Microbiology - Last 24 Hours (Table) 01/08/24 15:57 Blood Culture - Final Blood 01/08/24 15:42 Blood Culture - Final Blood
[2024-01-15 07:48] VITALS: BP 160/95; RESP 16; TEMP 97.8
--- NOTE | 2024-01-15 09:18 | XR ---
EXAMINATION TYPE: XR chest 2V DATE OF EXAM: 01/15/2024 COMPARISON: 01/11/2024 TECHNIQUE: PA and lateral views submitted. HISTORY: CHF FINDINGS: There is an area of consolidation involving the lung stable. Question a small air-fluid level. Left l blanca clear. Postsurgical change right shoulder. Arthropathy of the left shoulder. Degenerative change of the spine. IMPRESSION: 1. Large area of consolidation or mass right lower lobe. Question a small air-fluid level. Recommend CT of the chest.
[2024-01-15 11:12] LABS: HCT 40.6 % (39.6-50.0); HGB 12.8 g/dL (13.0-17.0); MCH 27.2 pg (27.0-32.0); MCHC 31.5 g/dL (32.0-37.0); MCV 86.2 FL (80.0-97.0); NRBC Per 100 WBC 0 X 10*3/uL (0.00-0.01); Platelet Count 333 X 10*3/uL (140-440); RBC 4.71 X 10*6/uL (4.40-5.60); RDW 16.1 % (11.5-14.5)
[2024-01-15 11:30] LABS: Blood Urea Nitrogen 23.4 mg/dL (9.0-27.0); Calcium 9.4 mg/dL (8.7-10.3); Carbon Dioxide 32.7 mmol/L (21.6-31.8); Chloride 93 mmol/L (96-109); Glucose 113 mg/dL (70-110); Sodium 139 mmol/L (135-145)
[2024-01-15 11:31] LABS: Magnesium 2.4 mg/dL (1.5-2.4)
--- NOTE | 2024-01-15 12:36 | P.PN ---
Subjective Progress Note Date: 01/15/24 Pleasant 68-year-old male patient with known history of esophageal cancer and recurrent respiratory tract infections or pneumonias. The patient was recently hospitalized back in November 2023 f and acute stroke exacerbation and acute hypoxic respiratory failure with suspected pneumonia. Noted the patient has COPD with an FEV1 of 48% predicted the baseline. Patient has been also has had previous hospitalization for an acute RSV infection has had previous hospitalization for RSV infections. He has been maintained on Trelegy Ellipta on an outpatient basis regarding his COPD. He also has previous history of esophageal cancer and esophagectomy and gastric fall and the most recent PET/CT that was done on this patient on 04/06/2023 showed no significant metabolic activity within the chest to indicate any residual disease. The patient is also known to have previous history of prostate cancer post prostatectomy, hypertension, and has issues with peripheral neuropathy. The patient is coming in with increased cough and congestion and shortness of breath. The patient's white cell count currently is at 9.2 with a white cell count of 12.4. Coagulation profiles been within normal limits. The electrolytes are all normal. Viral screen has been negative and t procalcitonin level was not elevat ed at 0.07. The patient is currently on 4 L of O2 nasal cannula. Has limited cough and congestion. Placed on Rocephin and Zithromax. Placed on IV Solu- Medrol. Placed on Symbicort as maintenance and DuoNeb updrafts. The chest x- ray was done showed persistent large area of opacity in the right lung base and this is related to a gastric polyp. Superimposed infection within the same area cannot be completely excluded. Clinically, the patient looks stable and does not look toxic at this point in time. On today's evaluation of 01/10/2024, I am seeing the patient for a follow-up. Remains congested and bronchospastic and wheezy. Not ready for discharge yet. Procalcitonin level has been 0 and the patient is on bronchodilators and steroids and the patient is covered with a combination of Rocephin and Zithromax in addition to bronchodilators and steroids. On today's evaluation of 01/11/2024, the patient is still congested and bronchospastic although less compared to yesterday. Chest x-ray shows no acute findings or changes compared to yesterday. Clinically stable. Oxygenation sta ble. The patient still requiring O2 at 3 L with a pulse ox of 96%. No other significant events otherwise. On today's evaluation of 01/12/2024, the patient is feeling better. The patient is less short of breath. Cough and congestion is improved compared to yesterday. Remains on DuoNeb updrafts. Remains on IV Solu-Medrol. Remains on Symbicort. Labs from today shows a white cell count of 13 hemoglobin 10.9 and platelet count of 297. Normal electrolytes. Procalcitonin level has been negative. Sputum sample was also negative. The patient is seen today January 13, 2024 in follow-up on the regular medical floor. He is currently sitting up at the bedside. Awake and alert in no acute distress. He is maintaining O2 saturations in the 90s on 4 L/min per nasal cannula. He does have home oxygen. His FEV1 value was 48% of predicted. Chest x-ray was revealing a right lower lobe infiltrate. Procalcitonin was 0.07. He still has some chest tightness and wheezing. Blood cultures revealed no growth. Sputum culture revealed no growth. White count 12.3. Hemoglobin 10.6. Platelets 306. Sodium 138. Potassium 4.6. Bicarb 28. BUN 22. Creatinine 0.7. Glucose 139. Remains on DuoNeb ventilations, Symbicort, Solu-Medrol. The patient is seen today January 14, 2024 in follow-up on the regular medical floor. He is awake and alert in no acute distress. Breathing easier today compared to yesterday. He is maintaining O2 saturations in the upper 90s on 3 L/min per nasal cannula. He has been slow to progress. Culture revealed no growth. Sputum culture revealed no growth. No new labs today. He is continued on DuoNeb inhalations, Symbicort, prednisone taper. The patient is seen today January 15, 2024 in follow-up on the regular medical floor. He is currently sitting up at the bedside. Awake and alert in no acute distress. Feeling quite a bit better today compared to yesterday. He diuresed well following the diuretics. Continued good O2 saturations in the mid 90s on 3 L/min per nasal cannula. He is afebrile. White count 13.8. Hemoglobin 12.8. Platelets 333. Sodium 139. Potassium 4.0. Bicarb 37. BUN 23. Creatinine 0.9. Glucose 113. He remains on DuoNeb ventilations, Symbicort, prednisone taper. Chest x-ray is showing some continued consolidation in the right lower lobe. Sputum culture revealed no growth. Blood cultures revealed no growth Objective - Vital Signs Vital signs: Vital Signs Temp 97.8 F 01/15/24 07:41 Pulse 89 01/15/24 09:39 Resp 16 01/15/24 07:41 BP 160/95 01/15/24 07:41 Pulse Ox 97 01/15/24 09:27 FiO2 Intake & Output 01/14/24 01/15/24 01/15/24 18:59 06:59 18:59 Intake Total 480 Balance 480 Intake: Oral 480 Other: # Voids 4 5 - Exam GENERAL EXAM: Alert, pleasant 68-year-old male, sitting up in bed, on 3 L/min nasal cannula, no acute distress. HEAD: Normocephalic and atraumatic EYES: Normal reaction of pupils, equal size. NOSE: Clear with pink turbinates. THROAT: No erythema or exudates. NECK: No masses, no JVD. CHEST: No chest wall deformity. LUNGS: Equal air entry with faint crackles right base. No focal dullness. CVS: S1 and S2 normal with no audible murmur, regular rhythm. No extra heart sounds ABDOMEN: No hepatosplenomegaly, active bowel sounds, no guarding or rigidity. SPINE: No scoliosis or deformity SKIN: No rashes CENTRAL NERVOUS SYSTEM: No focal deficits, tone is normal in all 4 extremities. EXTREMITIES: There is no edema. No clubbing, or cyanosis. Peripheral pulses are intact. - Labs CBC & Chem 7: 01/15/24 06:11 01/15/24 06:11 Labs: Abnormal Lab Results - Last 24 Hours (Table) 01/15/24 01/15/24 Range/Units 06:11 06:11 WBC 13.80 H (4.50-10.00) X 10*3/uL Hgb 12.8 L (13.0-17.0) g/dL MCHC 31.5 L (32.0-37.0) g/dL RDW 16.1 H (11.5-14.5) % MPV 9.0 L (9.5-12.2) FL Chloride 93 L (96-109) mmol/L Carbon Dioxide 32.7 H (21.6-31.8) mmol/L Anion Gap 13.30 H (4.00-12.00) mmol/L BUN/Creatinine Ratio 26.00 H (12.00-20.00) Ratio Glucose 113 H (70-110) mg/dL Assessment and Plan Assessment: Acute exacerbation of COPD, with a suspected right lower lobe pneumonia. There is some increased consolidation in the right lung base. Procalcitonin level has been negative. Viral screen has been negative. Rule out aspiration. Sputum culture has been negative. Suspect some fluid volume overload. Lasix was added. Acute on chronic hypoxic respiratory failure the patient is currently on 3 L O2 nasal cannula Recurrent COPD exacerbation, requiring several hospitalizations, the patient is maintained on Trelegy Ellipta on outpatient basis History of COPD with an FEV1 of 48% of predicted at baseline The patient had a recent hospitalization in October for the same and the patient was positive for RSV infection and at that time he was supported with a BiPAP and subsequently recovered History of esophageal cancer with a esophagectomy and gastric polyp, most recent PET/CT from March 2023 showed no evidence of any metabolic activity within the chest History of prostate cancer with a previous prostatectomy Hypertension Peripheral neuropathy Acid reflux secondary to above Plan: The patient was seen and evaluated Chest x-ray, labs and medications reviewed Chest x-ray reviewed with Dr. Sauer Cleared for discharge from the pulmonary standpoint Recommend 20 mg of Lasix p.o. daily Continue his home Trelegy and Duo nebs, oxygen Follow-up in our office in 1 week This patient was seen independently by the pulmonary nurse practitioner a ddressing pulmonary issues I have personally seen and examined the patient, performed the documentation and the assessment and plan as written. Number of minutes spent on the visit: 23.
[2024-01-15 12:48] VITALS: PULSE 97
[2024-01-15] MEDS: FUROSEMIDE 20 MG TAB PO SCH (12:54)
[2024-01-15 14:02] VITALS: BMI 31.5
--- NOTE | 2024-01-15 15:33 | P.DS ---
Providers Date of admission: 01/08/24 18:11 Expected date of discharge: 01/15/24 Attending physician: Alex Robbins Consults: 01/08/24 18:08 Consult Physician Routine Consulting Provider: Janet Mckenzie Consult Reason/Comments: Pneumonia, COPD, sepsis Do you want consulting provider notified?: Yes Primary care physician: Alex Robbins Hospital Course: Final diagnosis Chronic obstructive pulmonary disease, acute exacerbation Acute bilateral pneumonia, right more than left, present on admission Acute on chronic hypoxic respiratory failure secondary to COPD Hypertension History of esophageal cancer with history of partial esophagectomy History of nicotine dependence Obesity with a BMI of 31.6 GERD History of prostate cancer with previous prostatectomy GI prophylaxis DVT prophylaxis Full code Discharge disposition Patient is being discharged in a stable condition with guarded prognosis to home. Patient will follow-up with Dr. Robbins in the outpatient setting upon dis charge. Patient is to continue with prednisone taper as well as close outpatient follow-up with pulmonary as scheduled. Total time taken is greater than 35 minutes. Hospital course This is a 68-year-old male who was recently admitted with increasing shortness of breath with acute COPD exacerbation being closely monitored. Patient with concerns of possible acute bilateral pneumonia right more than left present on admission did receive some antibiotics and procalcitonin is negative. Cultures all negative as well. Patient will continue a short course of Augmentin to complete the course as well as a prednisone taper and continued breathing treatments and close outpatient follow-up with pulmonary. Patient instructed to continue using incentive spirometer as well as inhalers. Patient is maintained on Trelegy outpatient. Patient chronically wears oxygen outpatient is at baseline and has been cleared by pulmonary for discharge home today. Please refer to pulmonary notes for further HPI. Patient with some lower extremity edema as well as upper extremity edema showing some improvement on IV Lasix. Will continue a short course of oral Lasix with outpatient labs to monitor kidney functions and electrolytes. Patient has been instructed to follow-up with primary care provider this week. Currently no reports of chest pain, no worsening shortness of breath, or palpitations. Patient is afebrile. No reports of nausea or vomiting and patient is tolerating diet. Patient will be discharged home today. Guarded prognosis and high risk for readmissions as patient has had multiple hospitalizations due to significant COPD. Physical exam: Gen: This is a 68-year-old male who is awake, alert and oriented x 3, well- developed, well-nourished, obese, appears elderly HEENT: Head is atraumatic, normocephalic. Pupils equal, round. Sclerae is anicteric. NECK: Supple. No JVD. No lymphadenopathy. No thyromegaly. LUNGS: Diminished breath sounds bilaterally with some faint expiratory wheezes and coarse rhonchi. No intercostal retractions. HEART: S1, S2 are muffled ABDOMEN: Soft. Obese. Bowel sounds are present. No masses. No tenderness. EXTREMITIES: No pedal edema. No calf tenderness. Mild bilateral lower extremity edema 1+ pitting NEUROLOGICAL: Patient is awake, alert and oriented x3. Cranial nerves 2 through 12 are grossly intact. Please refer to medication reconciliation sheet for a list of medications. The impression and plan of care has been dictated by Loni Raymond, Nurse Practitioner as directed. Dr. Moo MD I have performed a history and examination and MDM of this patient, discussed the same with the dictator, and agree with the dictator's assessment and plan as written ,documented as a scribe. Based on total visit time, I have performed more than 50% of the visit. Patient Condition at Discharge: Fair Plan - Discharge Summary New Discharge Prescriptions: New predniSONE 10 mg PO DIRECTED #30 tab Furosemide [Lasix] 40 mg PO DAILY #7 tablet Amoxic-Pot Clav 875-125Mg [Augmentin 875-125] 1 tab PO BID 5 Days #10 tab Ipratropium-Albuterol Nebulize [Duoneb 0.5 mg-3 mg/3 ml Soln] 3 ml INHALATION RT-QID #100 each Acetaminophen Tab [Tylenol] 650 mg PO Q6HR PRN tab PRN Reason: Fever And/ Or Pain Continue Omeprazole 40 mg PO HS cloNIDine HCL [Catapres] 0.1 mg PO BID Losartan Potassium 100 mg PO DAILY Omeprazole 20 mg PO BID rOPINIRole HCL [Requip] 2 mg PO BID DULoxetine HCL [Cymbalta] 60 mg PO DAILY Baclofen [Lioresal] 20 mg PO HS Fluticasone/Umeclidin/Vilanter [Trelegy Ellipta 200-62.5-25] 1 puff INHALATION RT-DAILY Cyclobenzaprine [Flexeril] 10 mg PO TID PRN PRN Reason: Muscle Spasm Magnesium Oxide [Mag-Ox] 250 mg PO DAILY Ipratropium-Albuterol Nebulize [Duoneb 0.5 mg-3 mg/3 ml Soln] 3 ml INHALATION RT-QID PRN PRN Reason: Shortness Of Breath Albuterol Sulfate [Albuterol Sulfate Hfa] 2 puff INHALATION RT-QID PRN PRN Reason: Shortness Of Breath predniSONE 10 mg PO DAILY #0 Discharge Medication List Omeprazole 40 mg PO HS 04/26/17 [History] cloNIDine HCL [Catapres] 0.1 mg PO BID 10/02/18 [History] Losartan Potassium 100 mg PO DAILY 03/20/19 [History] Omeprazole 20 mg PO BID 06/08/19 [History] Fluticasone/Umeclidin/Vilanter [Trelegy Ellipta 200-62.5-25] 1 puff INHALATION RT-DAILY 05/25/21 [History] Baclofen [Lioresal] 20 mg PO HS 07/04/22 [History] DULoxetine HCL [Cymbalta] 60 mg PO DAILY 07/04/22 [History] rOPINIRole HCL [Requip] 2 mg PO BID 07/04/22 [History] Albuterol Sulfate [Albuterol Sulfate Hfa] 2 puff INHALATION RT-QID PRN 10/23/23 [History] Cyclobenzaprine [Flexeril] 10 mg PO TID PRN 10/23/23 [History] Ipratropium-Albuterol Nebulize [Duoneb 0.5 mg-3 mg/3 ml Soln] 3 ml INHALATION RT-QID PRN 10/23/23 [History] Magnesium Oxide [Mag-Ox] 250 mg PO DAILY 10/23/23 [History] Amoxic-Pot Clav 875-125Mg [Augmentin 875-125] 1 tab PO BID 5 Days #10 tab 01/10/24 [Rx] predniSONE 10 mg PO DIRECTED #30 tab 01/10/24 [Rx] predniSONE 10 mg PO DAILY #0 01/10/24 [Rx] Acetaminophen Tab [Tylenol] 650 mg PO Q6HR PRN tab 01/15/24 [Rx] Furosemide [Lasix] 40 mg PO DAILY #7 tablet 01/15/24 [Rx] Ipratropium-Albuterol Nebulize [Duoneb 0.5 mg-3 mg/3 ml Soln] 3 ml INHALATION RT-QID #100 each 01/15/24 [Rx] Follow up Appointment(s)/Referral(s): Alex Robbins DO [Primary Care Provider] - 01/21/24 1:20 pm Janet Mckenzie MD [STAFF PHYSICIAN] - 02/12/24 9:15 am Patient Instructions/Handouts: COPD (Chronic Obstructive Pulmonary Disease) (DC) Activity/Diet/Wound Care/Special Instructions: Activity limited until follow-up Follow-up with primary care provider on discharge Continue prednisone taper prior to resuming daily steroids Continue DuoNeb treatments 4 times daily as well as as needed Continue to elevate lower extremities while at rest Continue with Lasix once daily for the next few days Use Tavares wraps and/or compression stockings to help with swelling of the lower extremities Maintain fluid restrictions of 45 ounces all day Follow-up with pulmonary outpatient Discharge Disposition: HOME SELF-CARE
--- NOTE | 2024-01-22 11:24 | CDI ---
Documentation Clarification Form Date: 01/22/2024 10:54:34 AM From: Marisol Flores RN, CCDS Email: [email or web address] Admit Date: 01/08/2024 06:11:00 PM Patient Name: Bharat Narvaez Visit Number: [id number] Discharge Date: 01/15/2024 04:08:00 PM ATTENTION: The Clinical Documentation Specialists (CDI) and [facility] Coding Staff appreciate your assistance in clarifying documentation. Please respond to the clarification below the line at the bottom and electronically sign. The CDI & [facility] Coding staff will review the response and follow-up if needed. Please note: Queries are made part of the Legal Health Record. If you have any questions, please contact the author of this message via ITS. Dr. Alex Robbins Sepsis is documented in the ED note and the patient was febrile and tachypneic. Based on this information and the findings below, is there an additional diagnosis that is clinically appropriate for this patient? History/Risk Factors: recent hospitalization on 11/28/23 with COPD exacerbation, 10/23/23 for COPD exacerbation, RSV and left lower lobe pneumonia. Past medical history significant for severe steroid-dependent, COPD, chronic oxygen dependent on 3 L nasal cannula, GERD, former nicotine dependence and esophageal cancer. Presented with difficulty breathing, cough, congestion and fever. Clinical Indicators: ED: "There is some concern for sepsis diagnosed at 1806. COPD, Pneumonia, Sepsis." 01/08 Pulmonary consult: "He Is Diaphoretic. He Is Tachypneic. He Speaks In Short Sentences." 01/14 Discharge summary: "Consult Reason/Comments: Pneumonia, COPD, sepsis." 01/07-01/14 WBC: 10.2-14.7-13.9-12.3-13.8 01/07 Lactic acid: 1.3 01/07 Blood cultures: no growth 01/07 Vital signs: Temp 100.4-100.2-97.4, HR 46-809-080-101, RR 40-55-54-30-16 Treatment: IV Solumedrol 125mg x1 on 01/07; IV Solumedrol 60mg Q6H 01/07-01/12 Antibiotics: IV Azithromycin 500mg x1 on 01/07; Zithromax 500mg po daily 01/08- 01/09; IV Rocephin 2gm x1 on 01/07; IV Rocephin 2gm Q24H 01/08-01/11 IV: 0.9 NS @80mL/hr Is there an additional diagnosis that is clinically appropriate for this patient? [X] Sepsis, present on admission [ ] Sepsis ruled out [ ] Other, please specify [ ] Unable to determine SIRS Criteria: 2 or more of the following may indicate SIRS Temperature < 96.8F (36C) or > 101.0F (38.3C) Heart Rate > 90 bpm Respiratory Rate > 20 breaths/min or PaCO2 < 32 mmHg White Blood Cell Count > 12,000 or < 4,000 cells/mm3 or > 10% bands MTDD
== END 2024-01-15 16:08 | disposition home or self-care (01) | DRG 871 ==
LOC: EC 15:13 → 5NMEDONC 18:11 → 6NMEDSUR 01-09 06:42
PROVIDERS: ADMIT Family Medicine; ATTEND Family Medicine
DX: A41.9 Sepsis, unspecified organism (principal); J18.9 Pneumonia, unspecified organism; J96.21 Acute and chronic respiratory failure with hypoxia; J44.1 Chronic obstructive pulmonary disease with (acute) exacerbation; C34.91 Malignant neoplasm of unspecified part of right bronchus or lung; J44.0 Chronic obstructive pulmonary disease with (acute) lower respiratory infection; K31.7 Polyp of stomach and duodenum; Z79.52 Long term (current) use of systemic steroids; I10 Essential (primary) hypertension; E87.70 Fluid overload, unspecified; E11.42 Type 2 diabetes mellitus with diabetic polyneuropathy; Z90.79 Acquired absence of other genital organ(s); Z68.32 Body mass index [BMI] 32.0-32.9, adult; E66.9 Obesity, unspecified; Z85.01 Personal history of malignant neoplasm of esophagus; K21.9 Gastro-esophageal reflux disease without esophagitis; Z85.46 Personal history of malignant neoplasm of prostate; Z68.31 Body mass index [BMI] 31.0-31.9, adult; F41.9 Anxiety disorder, unspecified; F32.A Depression, unspecified; Z79.899 Other long term (current) drug therapy; Z86.73 Personal history of transient ischemic attack (TIA), and cerebral infarction without residual deficits; Z99.81 Dependence on supplemental oxygen; Z96.651 Presence of right artificial knee joint; Z77.090 Contact with and (suspected) exposure to asbestos; Z87.891 Personal history of nicotine dependence; Z87.19 Personal history of other diseases of the digestive system
CPT/HCPCS: 36415; 71046; 80048; 80053; 83605; 83735; 83880; 84145; 85025; 85027; 85610; 85730; 87040; 87070; 87205; 87449; 87636; 93005; 94640; 94667; 94668; 94760; 96365; 96368; 96375; 99291

== ENCOUNTER → 2024-02-20 | Outpatient (CLI) | payer MEDICARE ==
[2024-02-20 11:25] LABS: African American GFR (CKD) >90 (>60 ml/min/1.73 sqM); Blood Urea Nitrogen 25 mg/dL (9-20); Non-African American GFR(CKD) >90 (>60 ml/min/1.73 sqM)
--- NOTE | 2024-02-20 11:54 | CT ---
EXAMINATION TYPE: CT chest w con CT DLP: 580.80 mGycm, Automated exposure control for dose reduction was used. DATE OF EXAM: 02/20/2024 11:47 AM COMPARISON: 06/01/2022, PET/CT 04/05/2023 CLINICAL INDICATION:Male, 68 years old with history of C15.9 MALIGNANT NEOPLASM OF ESOPHAGUS, UNSPECI FIED; PHH, Spot on lung, hx malignant neoplasm of esophagus TECHNIQUE: Multiple axial images were obtained through the chest. Sagittal and coronal reformats were created for review. Contrast used:100 mL of Isovue 300 with IV Contrast (None if empty) Oral contrast used: (None if empty) FINDINGS: LUNGS/ PLEURA: The lung parenchyma appears unremarkable. AIRWAY: There is a few opacified large airways in the right lower lobe likely secondary to gastric demetrio men impressing upon the right lower lung. HEART: Heart is mildly enlarged for size. Moderate coronary artery cusp patient's. MEDIASTINUM: No gross evidence of adenopathy. 7 projecting over the gastric pull-through. Stable appe arance of the nonenlarged lymph nodes in the right pulmonary hilum. VASCULATURE: No aortic aneurysm. The pulmonary trunk remains dilated up to 37 mm. MUSCULOSKELETAL: Mild disc degeneration changes are present throughout the thoracolumbar spine. Right shoulder arthroplasty with hardware intact. SOFT TISSUES/LYMPH NODES: Unremarkable. LOWER NECK: No significant findings. UPPER ABDOMEN: No significant findings. IMPRESSION: 1. Postsurgical changes of esophagectomy gastric pull-through. No evidence for enlarging lymph node or new mass. 2. Pulmonary hypertension. 3. Few opacified right lower lobe airways likely representing atelectasis and/or retained secretions from the gastric lumen within the thorax.
== END | disposition home or self-care (01) ==
LOC: RADCTMAIN 10:52
PROVIDERS: ATTEND Internal Medicine Critical Care Medicine
DX: C15.9 Malignant neoplasm of esophagus, unspecified (principal); I27.20 Pulmonary hypertension, unspecified
CPT/HCPCS: 82565; 84520; 71260; 36415; Q9967

== ENCOUNTER 2024-03-23 19:04 | Inpatient (IN) | payer MEDICARE ==
--- NOTE | 2024-03-23 19:24 | ED ---
General Adult HPI - General Chief complaint: Extremity Injury, Lower Stated complaint: L Leg Wound Time Seen by Provider: 03/23/24 19:23 Source: patient, RN notes reviewed Mode of arrival: ambulatory Limitations: no limitations - History of Present Illness Initial comments: 68-year-old male presenting to the ER with a chief complaint of left leg wound. Patient reports this started about 10 days ago after scraping his leg while attempting to load a generator into his truck. He is on aware if he scraped his leg on the ladder or the generator. His tetanus status is unknown. He reports he was seen at [facility] on 03-20-2024, and started on Bactrim for cellulitis. He states since then the infection does not appear to be getting worse. He states a friend who is a wound care nurse examined the wound and stated he needed to come to the ER for evaluation. Patient reports a history of neuropathy. He is not diabetic. He denies any fevers or chills or other complaints. - Related Data Home Medications Medication Instructions Recorded Confirmed Omeprazole 40 mg PO HS 04/26/17 01/08/24 cloNIDine HCL [Catapres] 0.1 mg PO BID 10/02/18 01/08/24 Losartan Potassium 100 mg PO DAILY 03/20/19 01/08/24 Omeprazole 20 mg PO BID 06/08/19 01/08/24 Fluticasone/Umeclidin/Vilanter 1 puff INHALATION RT-DAILY 05/25/21 01/08/24 [Trelegy Ellipta 200-62.5-25] Baclofen [Lioresal] 20 mg PO HS 07/04/22 01/08/24 DULoxetine HCL [Cymbalta] 60 mg PO DAILY 07/04/22 01/08/24 rOPINIRole HCL [Requip] 2 mg PO BID 07/04/22 01/08/24 Albuterol Sulfate [Albuterol 2 puff INHALATION RT-QID PRN 10/23/23 01/08/24 Sulfate Hfa] Cyclobenzaprine [Flexeril] 10 mg PO TID PRN 10/23/23 01/08/24 Ipratropium-Albuterol Nebulize 3 ml INHALATION RT-QID PRN 10/23/23 01/08/24 [Duoneb 0.5 mg-3 mg/3 ml Soln] Magnesium Oxide [Mag-Ox] 250 mg PO DAILY 10/23/23 01/08/24 Previous Rx's Medication Instructions Recorded Amoxic-Pot Clav 875-125Mg 1 tab PO BID 5 Days #10 tab 01/10/24 [Augmentin 875-125] predniSONE 10 mg PO DIRECTED #30 tab 01/10/24 predniSONE 10 mg PO DAILY #0 01/10/24 Acetaminophen Tab [Tylenol] 650 mg PO Q6HR PRN tab 01/15/24 Furosemide [Lasix] 40 mg PO DAILY #7 tablet 01/15/24 Ipratropium-Albuterol Nebulize 3 ml INHALATION RT-QID #100 each 01/15/24 [Duoneb 0.5 mg-3 mg/3 ml Soln] Allergies Allergy/AdvReac Type Severity Reaction Status Date / Time No Known Allergies Allergy Verified 01/08/24 17:50 Review of Systems ROS Statement: Those systems with pertinent positive or pertinent negative responses have been documented in the HPI. ROS Other: All systems not noted in ROS Statement are negative. Past Medical History Past Medical History: Cancer, COPD, GERD/Reflux, Hypertension Additional Past Medical History / Comment(s): Neuropathy, hx esophageal cancer treated with surgery - 2008,. prostate cancer current 10/2023 History of Any Multi-Drug Resistant Organisms: None Reported Past Surgical History: Appendectomy, Hernia Repair, Joint Replacement, Orthopedic Surgery Additional Past Surgical History / Comment(s): Bilateral elbow, bilateral wrist carpal tunnel, bilateral rotator cuff surgeryx3 , right knee arthroscopy, right knee replacement, surgery for esophageal cancer (removed part of esophagus and removed part of stomach making it into carrot shape per patient), hernia repair X4. robotic prostatectomy with bilateral stent placement and pelvic lymph node removal 08/11/20 Past Anesthesia/Blood Transfusion Reactions: Previous Problems w/ Anesthesia Additional Past Anesthesia/Blood Transfusion Reaction / Comment(s): cannot lay flat- "stomach acid will come out my nose" Past Psychological History: Anxiety, Depression Smoking Status: Former smoker Past Alcohol Use History: None Reported Past Drug Use History: None Reported - Past Family History Father Family Medical History: Cancer Additional Family Medical History / Comment(s): COLON Cancer. Mother Family Medical History: Cancer, Deep Vein Thrombosis (DVT) Additional Family Medical History / Comment(s): Brain aneurysm. General Exam - General Exam Comments Initial Comments: Visual Physical Exam Vital signs reviewed General: Well-appearing, nontoxic, no acute distress. Head: Normocephalic, atraumatic Eyes: PERRLA, EOMI ENT: Airway patent Chest: Nonlabored breathing Skin: No visual rash, normal skin tone, right calf edematous and erythematous Neuro: Alert and oriented 3 Musculoskeletal: No gross abnormalities Limitations: no limitations General appearance: alert, in no apparent distress Respiratory exam: Present: rhonchi (all lung lópez) Cardiovascular Exam: Present: regular rate, normal rhythm, normal heart sounds. Absent: systolic murmur, diastolic murmur, rubs, gallop, clicks Extremities exam: Present: other (8 cm wound to left arredondo. Purulent drainage present. Surrounding induration, erythema and warmth. Left 2+ dorsalis pedis pulse. Sensation intact. Nonpitting edema to left lower extremity.) Neurological exam: Present: alert, oriented X3, CN II-XII intact Skin exam: Present: warm, dry, intact, normal color. Absent: rash Course Vital Signs 03/23/24 19:17 Temperature 98.1 F Pulse Rate 97 Respiratory 20 Rate Blood Pressure 123/69 O2 Sat by Pulse 93 L Oximetry - Reevaluation(s) Reevaluation #1: 03/23/24 22:[address] Robbins who accepts medical admission. Medical Decision Making - Medical Decision Making I performed the quick note portion of this chart. Electronically signed by Kaley Bella PA-C Was pt. sent in by a medical professional or institution ([facility], FEATHER CUTTING MACHINE FEEDER, urgent care, hospital, or alf...) When possible be specific @ -No Did you speak to anyone other than the patient for history (EMS, parent, family, police, friend...)? What history was obtained from this source @ -No Did you review nursing and triage notes (agree or disagree)? Why? @ -I reviewed and agree with nursing and triage notes Were old charts reviewed (outside hosp., previous admission, EMS record, old EKG, old radiological studies, urgent care reports/EKG's, alf records)? Report findings @ -No old charts were reviewed Differential Diagnosis (chest pain, altered mental status, abdominal pain women, abdominal pain men, vaginal bleeding, weakness, fever, dyspnea, syncope, headache, dizziness, GI bleed, back pain, seizure, CVA, palpatations, mental health, musculoskeletal)? @ -Differential Musculoskeletal: Muscular strain, contusion, ligament sprain, fracture, arthritis, septic arthritis, bursitis, cellulitis, muscle spasm, nerve compression, DVT, arterial occlusion, herpes zoster, electrolyte abnormality, tumor.... This is not meant to be in all inclusive list EKG interpreted by me (3pts min.). @ -None X-rays interpreted by me (1pt min.). @ -Left tib-fib x-ray interpreted by me negative for acute osseous process. CT interpreted by me (1pt min.). @ -None done U/S interpreted by me (1pt. min.). @ -None done What testing was considered but not performed or refused? (CT, X-rays, U/S, labs)? Why? @ -None What meds were considered but not given or refused? Why? @ -None Did you discuss the management of the patient with other professionals (professionals i.e. , PA, FEATHER CUTTING MACHINE FEEDER, lab, RT, psych nurse, social secretary, feltmaker, teacher, medical information officer, case making machine operator)? Give summary @ -No Was smoking cessation discussed for >3mins.? @ -No Was critical care preformed (if so, how long)? @ -No Were there social determinants of health that impacted care today? How? (Homelessness, low income, unemployed, alcoholism, drug addiction, tr ansportation, low edu. Level, literacy, decrease access to med. care, [facility], rehab)? @ -No Was there de-escalation of care discussed even if they declined (Discuss DNR or withdrawal of care, Hospice)? DNR status @ -No What co-morbidities impacted this encounter? (DM, HTN, Smoking, COPD, CAD, Cancer, CVA, ARF, Chemo, Hep., AIDS, mental health diagnosis, sleep apnea, morbid obesity)? @ -COPD Was patient admitted / discharged? Hospital course, mention meds given and route, prescriptions, significant lab abnormalities, going to OR and other pertinent info. @ -Admitted. 68 year old male presenting to the ER with a chief complaint of left calf arredondo wound. History and physical exam completed. Vitals significant for temperature 98.1, pulse 97, respiratory rate 20, blood pressure 123/69, oxygen saturation 93 % on 3L NC oxygen. Exam significant for an 8 cm wound to the left arredondo. Mild purulent drainage present. Surrounding induration, erythema and warmth. Nonpitting edema to left ankle. Left lower extremity neurovascular intact. Lab studies obtained remarkable for white blood cell count 9.2, sodium 134, lactic 2.1. Patient received 500 mL IV fluid. X-rays obtained negative for acute osseous process. Admission considered due to failed outpatient antibiotic treatment and need for IV antibiotics. Case discussed with Dr. Robbins who accepts medical admission. Patient will be started on IV Unasyn. Blood cultures obtained. ID on consult. Patient agreeable for admis ida. Case discussed with ED attending, Dr. Meng. Undiagnosed new problem with uncertain prognosis? @ -No Drug Therapy requiring intensive monitoring for toxicity (Heparin, Nitro, In sulin, Cardizem)? @ -No Were any procedures done? @ -No Diagnosis/symptom? @ -Cellulitis/wound Acute, or Chronic, or Acute on Chronic? @ -Acute Uncomplicated (without systemic symptoms) or Complicated (systemic symptoms)? @ -Uncomplicated Side effects of treatment? @ -No Exacerbation, Progression, or Severe Exacerbation? @ -No Poses a threat to life or bodily function? How? (Chest pain, USA, MA, pneumonia, PE, COPD, DKA, ARF, appy, cholecystitis, CVA, Diverticulitis, Homicidal, Suicidal, threat to staff... and all critical care pts) @ -Possibly can lead to sepsis - Lab Data Result diagrams: 03/23/24 20:16 03/23/24 20:16 Lab Results 03/23/24 03/23/24 03/23/24 Range/Units 20:16 20:16 20:16 WBC 9.2 (3.8-10.6) k/uL RBC 4.51 (4.30-5.90) m/uL Hgb 12.0 L (13.0-17.5) gm/dL Hct 39.0 (39.0-53.0) % MCV 86.3 (80.0-100.0) fL MCH 26.7 (25.0-35.0) pg MCHC 30.9 L (31.0-37.0) g/dL RDW 16.1 H (11.5-15.5) % Plt Count 359 (150-450) k/uL MPV 6.9 Neutrophils % 86 % Lymphocytes % 6 % Monocytes % 5 % Eosinophils % 2 % Basophils % 0 % Neutrophils # 7.9 H (1.3-7.7) k/uL Lymphocytes # 0.5 L (1.0-4.8) k/uL Monocytes # 0.4 (0-1.0) k/uL Eosinophils # 0.2 (0-0.7) k/uL Basophils # 0.0 (0-0.2) k/uL Hypochromasia Slight Anisocytosis Slight Sodium 134 L (137-145) mmol/L Potassium 4.4 (3.5-5.1) mmol/L Chloride 102 (98-107) mmol/L Carbon Dioxide 25 (22-30) mmol/L Anion Gap 7 mmol/L BUN 20 (9-20) mg/dL Creatinine 0.92 (0.66-1.25) mg/dL Est GFR (CKD-EPI)AfAm >90 (>60 ml/min/1.73 sqM) Est GFR (CKD-EPI)NonAf 85 (>60 ml/min/1.73 sqM) Glucose 114 H (74-99) mg/dL Plasma Lactic Acid Son 2.1 H* (0.7-2.0) mmol/L Calcium 8.9 (8.4-10.2) mg/dL Total Bilirubin 0.6 (0.2-1.3) mg/dL AST 23 (17-59) U/L ALT 15 (4-49) U/L Alkaline Phosphatase 90 (38-126) U/L Total Protein 6.0 L (6.3-8.2) g/dL Albumin 3.7 (3.5-5.0) g/dL - Radiology Data Radiology results: report reviewed, image reviewed Disposition Clinical Impression: Cellulitis Disposition: ADMITTED IP TO THIS [facility] Condition: Stable Referrals: Alex Robbins DO [Primary Care Provider] - 1-2 days Time of Disposition: 22:13
[2024-03-23 20:29] LABS: Anisocytosis Slight; Basophils % (A) 0 %; Eosinophils # (A) 0.2 k/uL (0-0.7); Eosinophils % (A) 2 %; Hypochromasia Slight; Lymphocytes # (A) 0.5 k/uL (1.0-4.8); Lymphocytes % (A) 6 %; MCH 26.7 pg (25.0-35.0); MCHC 30.9 g/dL (31.0-37.0); MCV 86.3 fL (80.0-100.0); Mean Platelet Volume 6.9; Monocytes # (A) 0.4 k/uL (0-1.0); Monocytes % (A) 5 %; Neutrophils # (A) 7.9 k/uL (1.3-7.7); Neutrophils % (A) 86 %; Platelet Count 359 k/uL (150-450); RBC 4.51 m/uL (4.30-5.90); RDW 16.1 % (11.5-15.5); WBC 9.2 k/uL (3.8-10.6)
[2024-03-23 20:45] LABS: ALT 15 U/L (4-49); AST 23 U/L (17-59); African American GFR (CKD) >90 (>60 ml/min/1.73 sqM); Albumin 3.7 g/dL (3.5-5.0); Alkaline Phosphatase 90 U/L (38-126); Anion Gap 7 mmol/L; Blood Urea Nitrogen 20 mg/dL (9-20); Calcium 8.9 mg/dL (8.4-10.2); Carbon Dioxide 25 mmol/L (22-30); Chloride 102 mmol/L (98-107); Glucose 114 mg/dL (74-99); Non-African American GFR(CKD) 85 (>60 ml/min/1.73 sqM); Potassium 4.4 mmol/L (3.5-5.1); Sodium 134 mmol/L (137-145); Total Bilirubin 0.6 mg/dL (0.2-1.3)
[2024-03-23] MEDS: DIPH,PERTUS(ACELL)TETVAC-LF 0.5 ML VIAL IM ONE (20:53)
[2024-03-23] MEDS: SODIUM CHLORIDE 0.9% 500 ML 500 ML IV STA (22:00)
--- NOTE | 2024-03-23 22:00 | XR ---
EXAMINATION TYPE: XR tibia fibula LT DATE OF EXAM: 03/23/2024 9:36 PM CLINICAL INDICATION:Male, 68 years old with history of wound; [facility] COMPARISON: None TECHNIQUE: XR tibia fibula LT; tibia/fibula was examined in AP and lateral projections. FINDINGS: Diffuse soft tissue swelling throughout the lower extremity. There is moderate degeneration changes of the knee with osteophyte formation and joint space narrowing. A fabella is present. I dis cussed the arterial vasculature. Os trigonum is noted posterior to the ankle. No evidence of fracture . IMPRESSION: 1. Soft tissue edema throughout the left lower extremity. Correlate for cellulitis. 2. No evidence of fracture.
[2024-03-23] MEDS ORDERED: NALOXONE 0.4 MG/ML 1 ML VIAL IV PRN (22:11)
[2024-03-23] MEDS: AMPICILLIN-SULBACTAM 3 GM in SODIUM CHLORIDE 0.9% 100 ML IVPB STA (22:57)
[2024-03-23] MEDS: ACETAMINOPHEN TAB 325 MG TAB PO PRN (22:58)
[2024-03-23] MEDS: SODIUM CHLORIDE 0.9% 1,000 ML IV SCH (22:59)
[2024-03-23] MEDS ORDERED: ALBUTEROL NEBULIZED 2.5 MG/3 ML INHALATION PRN (23:47)
[2024-03-23] MEDS ORDERED: MORPHINE SULFATE 2 MG/ML SYRINGE IVP PRN (23:49)
[2024-03-24] MEDS: MORPHINE SULFATE 2 MG/ML SYRINGE IVP ONE
[2024-03-24] MEDS: IPRATROPIUM-ALBUTEROL 3 ML NEB INHALATION PRN (00:09)
[2024-03-24] MEDS ORDERED: SYMBICORT 80-4.5 MCG INHALER INHALATION SCH (08:00)
[2024-03-24] MEDS: DULoxetine HCL 60 MG CAPSULE.DR PO SCH (08:57)
[2024-03-24] MEDS: AMPICILLIN-SULBACTAM 3 GM in SODIUM CHLORIDE 0.9% 100 ML IVPB SCH (08:57)
[2024-03-24] MEDS: LOSARTAN 50 MG TAB PO SCH (08:57)
[2024-03-24] MEDS: FUROSEMIDE 40 MG TAB PO SCH (08:57)
[2024-03-24] MEDS: cloNIDine HCL 0.1 MG TAB PO SCH (09:03)
[2024-03-24] MEDS: IPRATROPIUM-ALBUTEROL 3 ML NEB INHALATION SCH ×2 (11:48→15:30)
--- NOTE | 2024-03-24 12:19 | P.HPIM ---
History of Present Illness H&P Date: 03/24/24 Chief Complaint: Left lower extremity wound status post trauma, failed outpa tient antibiotic This is a pleasant 68-year-old gentleman with past medical history significant for bilateral pneumonia , RSV, severe steroid-dependent COPD , chronic oxygen dependent on 3 L nasal cannula , chronic steroid-dependent ,gastroesophageal reflux disease, former nicotine dependence, esophageal cancer with surgical resection and gastric pull-through, peripheral neuropathy,prostate cancer status post prostatectomy with bilateral pelvic lymph node dissection and stent placement, hypertension, Parkinson's disease, sleep apnea and multiple other medical issues presented to the ER for worsening left lower extremity wound, on Bactrim outpatient. Reports About 11 days ago he was getting out of the truck and fell on its tailgate, presented to the PCPs office and placed on Bactrim. A affected extremity continued worsening with increased edema, redness, serous drainage and pain. Afebrile, normal WBC, hemoglobin 12, platelets 359, electrolytes, renal function stable. Lactic acid 2.1, resolved with IV fluid hydration currently 0.7. Tib- fib x-ray reported soft tissue edema throughout the lower extremity, correlate for cellulitis, no evidence of fracture. Currently maintaining O2 sats of 94% on 4 L nasal cannula-O2 needs to be titrated down to maintain O2 sats greater than 90. Review of Systems ROS Statement: Those systems with pertinent positive or pertinent negative responses have been documented in the HPI. ROS Other: All systems not noted in ROS Statement are negative. Past Medical History Past Medical History: Cancer, COPD, GERD/Reflux, Hypertension Additional Past Medical History / Comment(s): Neuropathy, hx esophageal cancer treated with surgery - 2008,. prostate cancer current 10/2023 History of Any Multi-Drug Resistant Organisms: None Reported Past Surgical History: Appendectomy, Hernia Repair, Joint Replacement, Orthopedic Surgery Additional Past Surgical History / Comment(s): Bilateral elbow, bilateral wrist carpal tunnel, bilateral rotator cuff surgeryx3 , right knee arthroscopy, right knee replacement, surgery for esophageal cancer (removed part of esophagus and removed part of stomach making it into carrot shape per patient), hernia repair X4. robotic prostatectomy with bilateral stent placement and pelvic lymph node removal 08/11/20 Past Anesthesia/Blood Transfusion Reactions: Previous Problems w/ Anesthesia Additional Past Anesthesia/Blood Transfusion Reaction / Comment(s): cannot lay flat- "stomach acid will come out my nose" Past Psychological History: Anxiety, Depression Additional Psychological History / Comment(s): Pt lives at home with his . Pt is normally independent. Smoking Status: Former smoker Past Alcohol Use History: None Reported Additional Past Alcohol Use History / Comment(s): Patient was a smoker one pack per day for 10 years and quit ago 40 years ago. He lives at home with his . He is retired [employer] with exposure to asbestos. There is one cat, a Great Power and a Mountain terrier in the home. Patient enjoys camping, bicycling, gardening and yard work. No recent travel outside of [place]. The patient has been camping in [place]. Past Drug Use History: None Reported - Past Family History Father Family Medical History: Cancer Additional Family Medical History / Comment(s): COLON Cancer. Mother Family Medical History: Cancer, Deep Vein Thrombosis (DVT) Additional Family Medical History / Comment(s): Brain aneurysm. Medications and Allergies Home Medications Medication Instructions Recorded Confirmed Type Omeprazole 40 mg PO HS 04/26/17 03/24/24 History cloNIDine HCL [Catapres] 0.1 mg PO BID 10/02/18 03/24/24 History Losartan Potassium 100 mg PO DAILY 03/20/19 03/24/24 History Omeprazole 20 mg PO BID 06/08/19 03/24/24 History Fluticasone/Umeclidin/Vilanter 1 puff INHALATION RT-DAILY 05/25/21 03/24/24 History [Trelegy Ellipta 200-62.5-25] DULoxetine HCL [Cymbalta] 60 mg PO DAILY 07/04/22 03/24/24 History rOPINIRole HCL [Requip] 2 mg PO BID 07/04/22 03/24/24 History Albuterol Sulfate [Albuterol 2 puff INHALATION RT-QID PRN 10/23/23 03/24/24 History Sulfate Hfa] Cyclobenzaprine [Flexeril] 10 mg PO TID PRN 10/23/23 03/24/24 History Ipratropium-Albuterol Nebulize 3 ml INHALATION RT-QID PRN 10/23/23 03/24/24 History [Duoneb 0.5 mg-3 mg/3 ml Soln] Magnesium Oxide [Mag-Ox] 250 mg PO DAILY 10/23/23 03/24/24 History predniSONE 10 mg PO DAILY #0 01/10/24 03/24/24 Rx Furosemide [Lasix] 40 mg PO DAILY #7 tablet 01/15/24 03/24/24 Rx Ipratropium-Albuterol Nebulize 3 ml INHALATION RT-QID #100 each 01/15/24 03/24/24 Rx [Duoneb 0.5 mg-3 mg/3 ml Soln] Sulfamethox-Tmp 800-160Mg [Bactrim 1 tab PO BID 03/24/24 03/24/24 History DS 800-160 mg] Allergies Allergy/AdvReac Type Severity Reaction Status Date / Time No Known Allergies Allergy Verified 03/24/24 07:22 Physical Exam Vitals: Vital Signs Temp Pulse Pulse Resp BP BP Pulse Ox 03/24/24 08:43 94 L 03/24/24 08:30 98.6 F 81 18 146/78 94 L 03/24/24 06:42 84 03/24/24 06:35 97.8 F 69 16 159/80 93 L 03/24/24 06:22 82 03/24/24 04:29 80 18 163/89 94 L 03/24/24 04:00 80 16 163/89 94 L 03/24/24 02:00 78 16 133/66 94 L 03/24/24 00:20 80 16 141/77 95 03/24/24 00:17 84 03/24/24 00:11 81 03/23/24 23:42 98.3 F 81 18 133/70 95 03/23/24 19:17 98.1 F 97 20 123/69 93 L Intake and Output 03/23/24 03/24/24 03/24/24 22:59 06:59 14:59 Intake Total 358 Balance 358 Intake: Oral 358 Other: Weight 101.151 kg 101.151 kg VITAL SIGNS: [As above] GENERAL: Alert and oriented 3, Sitting up at side of bed, no acute distress. HEENT: Normocephalic, atraumatic, Conjunctivae normal. eyes normal. MMM. NECK: Supple, No JVD. CARDIOVASCULAR: S1, S2 regular. No murmur RESPIRATION: Unlabored, equal air entry with occasional fine expiratory wheeze. ABDOMEN: Soft, nondistended, nontender . No guarding. no masses palpable. No ascites, No hepatosplenomegaly.Bowel sounds heard. LEGS: Left lower extremity, anterior arredondo with approximately 8 cm wound, indurated ,serous drainage, darkened pink, edematous and warm, positive DP pulse NERVOUS SYSTEM: Cranial N 2-12 grossly normal. No focal deficits. Strength and sensation grossly intact. Skin: Warm and dry, no rash Results CBC & Chem 7: 03/23/24 20:16 03/23/24 20:16 Labs: Abnormal Lab Results - Last 24 Hours (Table) 03/23/24 03/23/24 03/23/24 Range/Units 20:16 20:16 20:16 Hgb 12.0 L (13.0-17.5) gm/dL MCHC 30.9 L (31.0-37.0) g/dL RDW 16.1 H (11.5-15.5) % Neutrophils # 7.9 H (1.3-7.7) k/uL Lymphocytes # 0.5 L (1.0-4.8) k/uL Sodium 134 L (137-145) mmol/L Glucose 114 H (74-99) mg/dL Plasma Lactic Acid Son 2.1 H* (0.7-2.0) mmol/L Total Protein 6.0 L (6.3-8.2) g/dL Thrombosis Risk Factor Assmnt - Choose All That Apply Any of the Below Risk Factors Present?: No Other Risk Factors: Yes Each Risk Factor Represents 2 Points: Age 61-74 years Thrombosis Risk Factor Assessment Total Risk Factor Score: 2 Thrombosis Risk Factor Assessment Level: Low Risk Assessment and Plan Assessment: Left lower extremity wound with cellulitis status post trauma 11 days ago, failed outpatient treatment. Lactic acidosis secondary to the above, resolved with IV fluid hydration Chronic hypoxic respiratory failure, wears 3 L nasal cannula at home Severe COPD, steroid-dependent Hypertension History of esophageal cancer with history of partial esophagectomy Former nicotine dependence History of prostate cancer status post prostatectomy Obesity, BMI 32 Plan: Continue on current medication regimen ,monitoring and symptomatic treatment. Antibiotics of Unasyn resumed, infectious disease consult in place. Wound care center consulted. Blood cultures pending . Wound cultures ordered .IV fluid hydration. Maintain aggressive pulmonary toileting with nebulized bronchodilators, Symbicort and oral home dose of prednisone in a patient who is steroid-dependent. Titrate oxygen to maintain O2 sat above 90%. GI prophylaxis with PPI. Repeat labs ordered for a.m. The impression and plan of care has been dictated as directed. : I performed a history and examination of this patient, discussed the same with the dictator. I agree with the dictator's note ,documented as a scribe. Any additional findings or plans will be noted.
[2024-03-24] MEDS: predniSONE 10 MG TAB PO SCH (13:21)
[2024-03-24] MEDS: MAGNESIUM OXIDE 400 MG TAB PO SCH (13:21)
[2024-03-24] MEDS: PANTOPRAZOLE 40 MG TABLET PO SCH (13:26)
[2024-03-24] MEDS: SYMBICORT 160-4.5 MCG INHALER INHALATION SCH (15:29)
[2024-03-24] MEDS ORDERED: NON FORMULARY DRUG (Omeprazole [Omeprazole] 40 MG Capsule.Dr) PO SCH (21:00)
--- NOTE | 2024-03-24 22:16 | P.CONS ---
History of Present Illness - Reason for Consult Consult date: 03/24/24 Cellulitis Requesting physician: Roxie Bella - Chief Complaint Left lower extremity swelling and redness x few days - History of Present Illness Patient is a 68-year-old female with a past medical history significant for COPD reflux hypertension history of esophageal and prostate cancer patient presenting to the hospital for evaluation of left lower extremity apparently about 10 days ago while attempting to load degenerated into his truck the patient scraped his left leg did have some superficial laceration patient subsequently noticed to have increasing swelling redness to left lower extremity for the patient was evaluated at the [facility] ER and has been treated with the Bactrim DS however the patient noticed to have worsening swelling and redness for the patient present to the hospital patient denies high-grade fever or any chills denies any headache or URI symptoms no chest pain or more than usual shortness of breath no worsening cough no nausea vomiting patient complaining of pressure to the left lower extremity some throbbing pain moderate intensity without radiation with associated swelling redness patient on presentation to the hospital was afebrile. Her white count 9.2 creatinine 0.92 lactic acid was 2.1 liver enzymes are normal patient has been started on Unasyn infectious disease was consulted for further management of antibiotic therapy Review of Systems Positive point and negatives has been mentioned in the HPI, complete review of systems was performed and all other systems are negative Past Medical History Past Medical History: Cancer, COPD, GERD/Reflux, Hypertension Additional Past Medical History / Comment(s): Neuropathy, hx esophageal cancer treated with surgery - 2008,. prostate cancer current 10/2023 History of Any Multi-Drug Resistant Organisms: None Reported Past Surgical History: Appendectomy, Hernia Repair, Joint Replacement, Orthopedic Surgery Additional Past Surgical History / Comment(s): Bilateral elbow, bilateral wrist carpal tunnel, bilateral rotator cuff surgeryx3 , right knee arthroscopy, right knee replacement, surgery for esophageal cancer (removed part of esophagus and removed part of stomach making it into carrot shape per patient), hernia repair X4. robotic prostatectomy with bilateral stent placement and pelvic lymph node removal 08/11/20 Past Anesthesia/Blood Transfusion Reactions: Previous Problems w/ Anesthesia Additional Past Anesthesia/Blood Transfusion Reaction / Comm: cannot lay flat- "stomach acid will come out my nose" Past Psychological History: Anxiety, Depression Additional Psychological History / Comment(s): Pt lives at home with his . Pt is normally independent. Smoking Status: Former smoker Past Alcohol Use History: None Reported Additional Past Alcohol Use History / Comment(s): Patient was a smoker one pack per day for 10 years and quit ago 40 years ago. He lives at home with his . He is retired [employer] with exposure to asbestos. There is one cat, a Great Power and a Mountain terrier in the home. Patient enjoys camping, bicycling, gardening and yard work. No recent travel outside of [place]. The patient has been camping in [place]. Past Drug Use History: None Reported - Past Family History Father Family Medical History: Cancer Additional Family Medical History / Comment(s): COLON Cancer. Mother Family Medical History: Cancer, Deep Vein Thrombosis (DVT) Additional Family Medical History / Comment(s): Brain aneurysm. Medications and Allergies Home Medications Medication Instructions Recorded Confirmed Type Omeprazole 40 mg PO HS 04/26/17 03/24/24 History cloNIDine HCL [Catapres] 0.1 mg PO BID 10/02/18 03/24/24 History Losartan Potassium 100 mg PO DAILY 03/20/19 03/24/24 History Omeprazole 20 mg PO BID 06/08/19 03/24/24 History Fluticasone/Umeclidin/Vilanter 1 puff INHALATION RT-DAILY 05/25/21 03/24/24 History [Treleann Ellipta 200-62.5-25] DULoxetine HCL [Cymbalta] 60 mg PO DAILY 07/04/22 03/24/24 History rOPINIRole HCL [Requip] 2 mg PO BID 07/04/22 03/24/24 History Albuterol Sulfate [Albuterol 2 puff INHALATION RT-QID PRN 10/23/23 03/24/24 History Sulfate Hfa] Cyclobenzaprine [Flexeril] 10 mg PO TID PRN 10/23/23 03/24/24 History Ipratropium-Albuterol Nebulize 3 ml INHALATION RT-QID PRN 10/23/23 03/24/24 History [Duoneb 0.5 mg-3 mg/3 ml Soln] Magnesium Oxide [Mag-Ox] 250 mg PO DAILY 10/23/23 03/24/24 History predniSONE 10 mg PO DAILY #0 01/10/24 03/24/24 Rx Furosemide [Lasix] 40 mg PO DAILY #7 tablet 01/15/24 03/24/24 Rx Ipratropium-Albuterol Nebulize 3 ml INHALATION RT-QID #100 each 01/15/24 Rx [Duoneb 0.5 mg-3 mg/3 ml Soln] Sulfamethox-Tmp 800-160Mg [Bactrim 1 tab PO BID 03/24/24 03/24/24 History DS 800-160 mg] Allergies Allergy/AdvReac Type Severity Reaction Status Date / Time No Known Allergies Allergy Verified 03/24/24 07:22 Physical Exam Vitals: Vital Signs Temp Pulse Pulse Resp BP BP Pulse Ox 03/24/24 08:43 94 L 03/24/24 08:30 98.6 F 81 18 146/78 94 L 03/24/24 06:42 84 03/24/24 06:35 97.8 F 69 16 159/80 93 L 03/24/24 06:22 82 03/24/24 04:29 80 18 163/89 94 L 03/24/24 04:00 80 16 163/89 94 L 03/24/24 02:00 78 16 133/66 94 L 03/24/24 00:20 80 16 141/77 95 03/24/24 00:17 84 03/24/24 00:11 81 03/23/24 23:42 98.3 F 81 18 133/70 95 03/23/24 19:17 98.1 F 97 20 123/69 93 L Intake and Output 03/23/24 03/24/24 03/24/24 22:59 06:59 14:59 Intake Total 358 Balance 358 Intake: Oral 358 Other: Weight 101.151 kg 101.151 kg GENERAL DESCRIPTION: Elderly male up in the chair, no distress. No tachypnea or accessory muscle of respiration use. HEENT: Shows Pallor , no scleral icterus. Oral mucous membrane is dry. No pharyngeal erythema or thrush NECK: Trachea central, no thyromegaly. LUNGS: Unlabored breathing. Clear to auscultation anteriorly. No wheeze or crackle. HEART: S1, S2, regular rate and rhythm. No loud murmur ABDOMEN: Soft, no tenderness , guarding or rigidity, no organomegaly EXTREMITIES: Left lower extremity with laceration surrounding swelling redness but no foul-smelling drainage SKIN: No rash, no masses palpable. NEUROLOGICAL: The patient is awake, alert, oriented x3, mood and affect normal. Results CBC & Chem 7: 03/23/24 20:16 03/23/24 20:16 Labs: Abnormal Lab Results - Last 24 Hours (Table) 03/23/24 03/23/24 03/23/24 Range/Units 20:16 20:16 20:16 Hgb 12.0 L (13.0-17.5) gm/dL MCHC 30.9 L (31.0-37.0) g/dL RDW 16.1 H (11.5-15.5) % Neutrophils # 7.9 H (1.3-7.7) k/uL Lymphocytes # 0.5 L (1.0-4.8) k/uL Sodium 134 L (137-145) mmol/L Glucose 114 H (74-99) mg/dL Plasma Lactic Acid Son 2.1 H* (0.7-2.0) mmol/L Total Protein 6.0 L (6.3-8.2) g/dL Assessment and Plan (1) Left leg cellulitis Current Visit: Yes Status: Acute Code(s): L03.116 - CELLULITIS OF LEFT LOWER LIMB SNOMED Code(s): 40379452166513739 (2) Failure of outpatient treatment Current Visit: Yes Status: Acute Code(s): Z78.9 - OTHER SPECIFIED HEALTH STATUS SNOMED Code(s): 891077344 Plan: 1patient presented to hospital with increasing swelling redness pressure to the left lower extremity this patient who did have left lower extremity ulceration and secondary cellulitis failing outpatient oral Bactrim DS therapy 2-marked area of the redness 3we will recommend Unasyn 3 g every 6 hours and may benefit from light Tavares wrap for compression to get the swelling down We will follow on clinical condition and cultures to further adjust medication if needed Thank you for this consultation we will follow the patient along with you Dictation was produced using [employer] software. please excuse any grammatical, word or spelling errors. Time with Patient: Greater than 30
[2024-03-25] MEDS: IPRATROPIUM-ALBUTEROL 3 ML NEB INHALATION PRN (02:13)
[2024-03-25 10:32] LABS: BUN/Creat Ratio 19.43 Ratio (12.00-20.00); Blood Urea Nitrogen 13.6 mg/dL (9.0-27.0); Calcium 8.7 mg/dL (8.7-10.3); Chloride 101 mmol/L (96-109); Glucose 108 mg/dL (70-110); Potassium 3.8 mmol/L (3.5-5.5); Sodium 138 mmol/L (135-145)
[2024-03-25 10:43] LABS: Basophils # (A) 0.02 X 10*3/uL (0.00-0.10); Basophils % (A) 0.3 %; Eosinophils # (A) 0.16 X 10*3/uL (0.04-0.35); Eosinophils % (A) 2.1 %; HCT 35.5 % (39.6-50.0); HGB 10.9 g/dL (13.0-17.0); Lymphocytes # (A) 0.53 X 10*3/uL (0.90-5.00); MCH 26.3 pg (27.0-32.0); MCHC 30.7 g/dL (32.0-37.0); MCV 85.7 FL (80.0-97.0); Mean Platelet Volume 8.8 FL (9.5-12.2); Monocytes # (A) 0.61 X 10*3/uL (0.20-1.00); NRBC Per 100 WBC 0 X 10*3/uL (0.00-0.01); Neutrophils # (A) 6.24 X 10*3/uL (1.80-7.70); Neutrophils % (A) 81.9 %; Platelet Count 254 X 10*3/uL (140-440); RBC 4.14 X 10*6/uL (4.40-5.60); RDW 15.7 % (11.5-14.5); WBC 7.61 X 10*3/uL (4.50-10.00)
--- NOTE | 2024-03-25 12:18 | P.CONS ---
History of Present Illness - Reason for Consult Consult date: 03/25/24 wound care - History of Present Illness This is a 68-year-old patient being seen in the wound care center for nonhealing ulceration to the left anterior lower extremity. Patient fell off of a ladder resulting in a laceration to the left lower extremity. Patient was seen by the urgent care clinic who gave him an antibiotic and dressings. However patient had increased redness and drainage from the site with swelling. And he was seen in the emergency room. Ulceration measures approximately 6 x 0.5 x 0.2 cm with significant amount of slough and nonviable tissue present. Edema is noted to the left lower extremity. Review Of Systems: Constitutional: No fever, no chills, no night sweats. No weight change. No weakness, fatigue or lethargy. No daytime sleepiness. Integumentary:reports wounds, no lesions. No rash or pruritus. No unusual bruising. No change in hair or nails. Physical exam: General Appearance: Alert, cooperative, no distress, appears stated age. Skin: See HPI all other Skin color, texture, tugor normal, no rashes or lesions. Neurologic: Alert oriented x3 Assessment: 1. Nonhealing ulceration with fat layer exposure left lower extremity Plan: 1. Apply Santyl, saline with gauze, dry gauze, rolled gauze and secure with paper tape. Continue to utilize Tavares wrap for compression. Patient would benefit from advanced wound care and wound care setting he is agreeable to the plan. We will see the patient in 1 week in the wound care center. Thank you for the consultation any questions please contact the wound care center DNP note has been reviewed and discussed with Dr. Romero and the impression and plan of care has been directed as dictated. Past Medical History Past Medical History: Cancer, COPD, GERD/Reflux, Hypertension Additional Past Medical History / Comment(s): Neuropathy, hx esophageal cancer treated with surgery - 2008,. prostate cancer current 10/2023 History of Any Multi-Drug Resistant Organisms: None Reported Past Surgical History: Appendectomy, Hernia Repair, Joint Replacement, Orthopedic Surgery Additional Past Surgical History / Comment(s): Bilateral elbow, bilateral wrist carpal tunnel, bilateral rotator cuff surgeryx3 , right knee arthroscopy, right knee replacement, surgery for esophageal cancer (removed part of esophagus and removed part of stomach making it into carrot shape per patient), hernia repair X4. robotic prostatectomy with bilateral stent placement and pelvic lymph node removal 08/11/20 Past Anesthesia/Blood Transfusion Reactions: Previous Problems w/ Anesthesia Additional Past Anesthesia/Blood Transfusion Reaction / Comm: cannot lay flat- "stomach acid will come out my nose" Past Psychological History: Anxiety, Depression Additional Psychological History / Comment(s): Pt lives at home with his . Pt is normally independent. Smoking Status: Former smoker Past Alcohol Use History: None Reported Additional Past Alcohol Use History / Comment(s): Patient was a smoker one pack per day for 10 years and quit ago 40 years ago. He lives at home with his . He is retired [employer] with exposure to asbestos. There is one cat, a Great Power and a Mountain terrier in the home. Patient enjoys camping, bicycling, gardening and yard work. No recent travel outside of [place]. The patient has been camping in [place]. Past Drug Use History: None Reported - Past Family History Father Family Medical History: Cancer Additional Family Medical History / Comment(s): COLON Cancer. Mother Family Medical History: Cancer, Deep Vein Thrombosis (DVT) Additional Family Medical History / Comment(s): Brain aneurysm. Medications and Allergies Home Medications Medication Instructions Recorded Confirmed Type Omeprazole 40 mg PO HS 04/26/17 03/24/24 History cloNIDine HCL [Catapres] 0.1 mg PO BID 10/02/18 03/24/24 History Losartan Potassium 100 mg PO DAILY 03/20/19 03/24/24 History Omeprazole 20 mg PO BID 06/08/19 03/24/24 History Fluticasone/Umeclidin/Vilanter 1 puff INHALATION RT-DAILY 05/25/21 03/24/24 History [Trelegy Ellipta 200-62.5-25] DULoxetine HCL [Cymbalta] 60 mg PO DAILY 07/04/22 03/24/24 History rOPINIRole HCL [Requip] 2 mg PO BID 07/04/22 03/24/24 History Albuterol Sulfate [Albuterol 2 puff INHALATION RT-QID PRN 10/23/23 03/24/24 History Sulfate Hfa] Cyclobenzaprine [Flexeril] 10 mg PO TID PRN 10/23/23 03/24/24 History Ipratropium-Albuterol Nebulize 3 ml INHALATION RT-QID PRN 10/23/23 03/24/24 History [Duoneb 0.5 mg-3 mg/3 ml Soln] Magnesium Oxide [Mag-Ox] 250 mg PO DAILY 10/23/23 03/24/24 History predniSONE 10 mg PO DAILY #0 01/10/24 03/24/24 Rx Furosemide [Lasix] 40 mg PO DAILY #7 tablet 01/15/24 03/24/24 Rx Ipratropium-Albuterol Nebulize 3 ml INHALATION RT-QID #100 each 01/15/24 03/24/24 Rx [Duoneb 0.5 mg-3 mg/3 ml Soln] Sulfamethox-Tmp 800-160Mg [Bactrim 1 tab PO BID 03/24/24 03/24/24 History DS 800-160 mg] Allergies Allergy/AdvReac Type Severity Reaction Status Date / Time No Known Allergies Allergy Verified 03/24/24 07:22 Physical Exam Vitals: Vital Signs Temp Pulse Pulse Resp BP Pulse Ox 03/25/24 11:38 82 03/25/24 11:27 78 03/25/24 08:43 82 03/25/24 08:32 80 96 03/25/24 07:25 97.7 F 68 17 144/76 97 03/25/24 05:25 76 03/25/24 05:13 76 03/25/24 02:24 84 03/25/24 02:21 98.1 F 71 15 148/73 95 03/25/24 02:13 84 03/24/24 21:16 84 03/24/24 21:04 84 03/24/24 19:11 97.6 F 87 15 126/58 94 L 03/24/24 15:53 88 03/24/24 15:40 86 03/24/24 14:30 98.0 F 82 17 125/77 96 Intake and Output 03/24/24 03/25/24 03/25/24 22:59 06:59 14:59 Intake Total 118 236 Balance 118 236 Intake: Oral 118 236 Other: # Voids 1 2 Results CBC & Chem 7: 03/25/24 06:45 03/25/24 06:45 Labs: Abnormal Lab Results - Last 24 Hours (Table) 03/25/24 Range/Units 06:45 RBC 4.14 L (4.40-5.60) X 10*6/uL Hgb 10.9 L (13.0-17.0) g/dL Hct 35.5 L (39.6-50.0) % MCH 26.3 L (27.0-32.0) pg MCHC 30.7 L (32.0-37.0) g/dL RDW 15.7 H (11.5-14.5) % MPV 8.8 L (9.5-12.2) FL Immature Gran # 0.05 H (0.00-0.04) X 10*3/uL Lymphocytes # 0.53 L (0.90-5.00) X 10*3/uL Microbiology - Last 24 Hours (Table) 03/23/24 20:15 Blood Culture - Preliminary Blood 03/23/24 20:00 Blood Culture - Preliminary Blood 03/24/24 13:27 Gram Stain - Preliminary Leg - Left Assessment and Plan (1) Non-pressure chronic ulcer of other part of left lower leg with fat layer e xposed Current Visit: Yes Status: Acute Code(s): L97.822 - NON-PRS CHRONIC ULCER OTH PRT L LOW LEG W FAT LAYER EXPOSED SNOMED Code(s): 92162347961678150
--- NOTE | 2024-03-25 14:34 | P.PN ---
Subjective Progress Note Date: 03/25/24 H&P Date: 03/24/24 Chief Complaint: Left lower extremity wound status post trauma, failed outpatient antibiotic This is a pleasant 68-year-old gentleman with past medical history significant for bilateral pneumonia , RSV, severe steroid-dependent COPD , chronic oxygen dependent on 3 L nasal cannula , chronic steroid-dependent ,gastroesophageal reflux disease, former nicotine dependence, esophageal cancer with surgical resection and gastric pull-through, peripheral neuropathy,prostate cancer status post prostatectomy with bilateral pelvic lymph node dissection and stent placement, hypertension, Parkinson's disease, sleep apnea and multiple other med ical issues presented to the ER for worsening left lower extremity wound, on Bactrim outpatient. Reports About 11 days ago he was getting out of the truck and fell on its tailgate, presented to the PCPs office and placed on Bactrim. A affected extremity continued worsening with increased edema, redness, serous drainage and pain. Afebrile, normal WBC, hemoglobin 12, platelets 359, electrolytes, renal function stable. Lactic acid 2.1, resolved with IV fluid hydration currently 0.7. Tib- fib x-ray reported soft tissue edema throughout the lower extremity, correlate for cellulitis, no evidence of fracture. Currently maintaining O2 sats of 94% on 4 L nasal cannula-O2 needs to be titrated down to maintain O2 sats greater than 90. evaluated by wound care team and infectious disease with recommendations noted and appreciated. Maintained on IV fluid hydration, Unasyn. Local wound care with Santyl .Cultures pending. Afebrile, normal WBC. Renal function stable. Blood sugars controlled. Objective - Vital Signs Vital signs: Vital Signs Temp 97.7 F 03/25/24 07:25 Pulse 82 03/25/24 11:38 Resp 17 03/25/24 07:25 BP 144/76 03/25/24 07:25 Pulse Ox 96 03/25/24 08:32 FiO2 Intake & Output 03/24/24 03/25/24 03/25/24 18:59 06:59 18:59 Intake Total 716 236 Balance 716 236 Weight 101.151 kg Intake: Oral 716 236 Other: # Voids 1 2 1 - Exam VITAL SIGNS: [As above] GENERAL: Alert and oriented 3, Sitting up at side of bed, no acute distress. HEENT: Normocephalic, atraumatic, Conjunctivae normal. eyes normal. MMM. NECK: Supple, No JVD. CARDIOVASCULAR: S1, S2 regular. No murmur RESPIRATION: Unlabored, equal air entry, bilateral bases diminished with occasional expiratory wheeze. ABDOMEN: Soft, nondistended, nontender . No guarding. no masses palpable.+BS. LEGS: Left lower extremity, dressing, clean dry and intact, positive DP pulse NERVOUS SYSTEM: Cranial N 2-12 grossly normal. No focal deficits. Strength and sensation grossly intact. Skin: Warm and dry, no rash - Labs CBC & Chem 7: 03/25/24 06:45 03/25/24 06:45 Labs: Abnormal Lab Results - Last 24 Hours (Table) 03/25/24 Range/Units 06:45 RBC 4.14 L (4.40-5.60) X 10*6/uL Hgb 10.9 L (13.0-17.0) g/dL Hct 35.5 L (39.6-50.0) % MCH 26.3 L (27.0-32.0) pg MCHC 30.7 L (32.0-37.0) g/dL RDW 15.7 H (11.5-14.5) % MPV 8.8 L (9.5-12.2) FL Immature Gran # 0.05 H (0.00-0.04) X 10*3/uL Lymphocytes # 0.53 L (0.90-5.00) X 10*3/uL Microbiology - Last 24 Hours (Table) 03/23/24 20:15 Blood Culture - Preliminary Blood 03/23/24 20:00 Blood Culture - Preliminary Blood 03/24/24 13:27 Gram Stain - Preliminary Leg - Left Assessment and Plan Assessment: Left lower extremity wound with cellulitis status post trauma 11 days ago, failed outpatient treatment. Lactic acidosis secondary to the above, resolved with IV fluid hydration Chronic hypoxic respiratory failure, wears 3 L nasal cannula at home Severe COPD, steroid-dependent Hypertension History of esophageal cancer with history of partial esophagectomy Former nicotine dependence History of prostate cancer status post prostatectomy Obesity, BMI 32 Plan: Continue on current medication regimen ,monitoring and symptomatic treatment. IV fluid hydration .antibiotics as per ID. Cultures pending. Local wound care with Santyl. Maintain close monitoring of blood sugars-tight control for wound healing. continue aggressive pulmonary toileting with nebulized bronchodilators, Symbicort and oral steroids. Titrate oxygen to maintain O2 sat above 90%-patient's baseline is 3 L nasal cannula O2. Repeat labs ordered for a.m. The impression and plan of care has been dictated as directed. : I performed a history and examination of this patient, discussed the same with the dictator. I agree with the dictator's note ,documented as a scribe. Any additional findings or plans will be noted.
[2024-03-25] MEDS: COLLAGENASE 250 UNIT/GM OINTMENT 30 GM TUBE TOPICAL SCH (17:45)
--- NOTE | 2024-03-26 17:16 | P.PN ---
Subjective Progress Note Date: 03/25/24 Principal diagnosis: Reason for follow-up is left lower extremity cellulitis Patient is a 68-year-old female with a past medical history significant for COPD reflux hypertension history of esophageal and prostate cancer patient presenting to the hospital for evaluation of left lower extremity swelling redness and this patient noted to have history of laceration to the leg about 10 days prior to presentation to hospital. On today's evaluation that is 03/25/2024, the patient continues to be afebrile, the patient is on room air and breathing comfortably, the Pt denies having any chest pain or cough, the patient denies having any abdominal pain no vomiting or any diarrhea patient swelling redness to the left leg has slightly decreased in intensity Patient white count is 7.61, creatinine 0.7 Objective - Vital Signs Vital signs: Vital Signs Temp 97.7 F 03/25/24 07:25 Pulse 82 03/25/24 11:38 Resp 17 03/25/24 07:25 BP 144/76 03/25/24 07:25 Pulse Ox 96 03/25/24 08:32 FiO2 Intake & Output 03/24/24 03/25/24 03/25/24 18:59 06:59 18:59 Intake Total 716 236 Balance 716 236 Weight 101.151 kg Intake: Oral 716 236 Other: # Voids 1 2 - Exam GENERAL DESCRIPTION: An elderly male up in the chair in no distress RESPIRATORY SYSTEM: Unlabored breathing , decreased breath sounds at bases HEART: S1 S2 regular rate and rhythm , ABDOMEN: Soft , no tenderness EXTREMITIES: Left leg swelling redness slightly decreased - Labs CBC & Chem 7: 03/25/24 06:45 03/25/24 06:45 Labs: Abnormal Lab Results - Last 24 Hours (Table) 03/25/24 Range/Units 06:45 RBC 4.14 L (4.40-5.60) X 10*6/uL Hgb 10.9 L (13.0-17.0) g/dL Hct 35.5 L (39.6-50.0) % MCH 26.3 L (27.0-32.0) pg MCHC 30.7 L (32.0-37.0) g/dL RDW 15.7 H (11.5-14.5) % MPV 8.8 L (9.5-12.2) FL Immature Gran # 0.05 H (0.00-0.04) X 10*3/uL Lymphocytes # 0.53 L (0.90-5.00) X 10*3/uL Microbiology - Last 24 Hours (Table) 03/23/24 20:15 Blood Culture - Preliminary Blood 03/23/24 20:00 Blood Culture - Preliminary Blood 03/24/24 13:27 Gram Stain - Preliminary Leg - Left Assessment and Plan (1) Left leg cellulitis Current Visit: Yes Status: Acute Code(s): L03.116 - CELLULITIS OF LEFT LOWER LIMB SNOMED Code(s): 55407977392483599 (2) Failure of outpatient treatment Current Visit: Yes Status: Acute Code(s): Z78.9 - OTHER SPECIFIED HEALTH STATUS SNOMED Code(s): 512168898 Plan: 1patient presented to hospital with increasing swelling redness pressure to the left lower extremity this patient who did have left lower extremity ulceration and secondary cellulitis failing outpatient oral Bactrim DS therapy 2 patient to continue with Unasyn 3 g every 6 hours along with Tavares wrap for compression and follow-up on the culture Dictation was produced using [employer] dictation software. please excuse any grammatical, word or spelling errors. Time with Patient: Less than 30
--- NOTE | 2024-03-26 17:17 | P.PN ---
Subjective Progress Note Date: 03/26/24 Principal diagnosis: Reason for follow-up is left lower extremity cellulitis Patient is a 68-year-old female with a past medical history significant for COPD reflux hypertension history of esophageal and prostate cancer patient presenting to the hospital for evaluation of left lower extremity swelling redness and this patient noted to have history of laceration to the leg about 10 days prior to presentation to hospital. On today's evaluation that is 03/26/2024, Patient is afebrile patient is currently on room air and denies having any shortness of breath, the patient denies any chest pain or cough, the patient denies any nausea vomiting did not have any abdominal pain and no diarrhea patient mention improvement in swelling redness of the left lower extremity. No new labs has been obtained today cultures negative so far Objective - Vital Signs Vital signs: Vital Signs Temp 97.7 F 03/26/24 07:00 Pulse 79 03/26/24 12:43 Resp 16 03/26/24 09:33 BP 163/83 03/26/24 07:00 Pulse Ox 97 03/26/24 09:15 FiO2 Intake & Output 03/25/24 03/26/24 03/26/24 18:59 06:59 18:59 Intake Total 804 240 Balance 804 240 Intake: Oral 804 240 Other: Voiding Method Toilet # Voids 1 - Exam GENERAL DESCRIPTION: An elderly male up in the chair in no distress RESPIRATORY SYSTEM: Unlabored breathing , decreased breath sounds at bases HEART: S1 S2 regular rate and rhythm , ABDOMEN: Soft , no tenderness EXTREMITIES: Left leg currently wrapped in Tavares wrap - Labs CBC & Chem 7: 03/25/24 06:45 03/25/24 06:45 Labs: Microbiology - Last 24 Hours (Table) 03/23/24 20:15 Blood Culture - Preliminary Blood 03/23/24 20:00 Blood Culture - Preliminary Blood 03/24/24 13:27 Gram Stain - Preliminary Leg - Left Wound Culture - Preliminary Assessment and Plan (1) Left leg cellulitis Current Visit: Yes Status: Acute Code(s): L03.116 - CELLULITIS OF LEFT LOWER LIMB SNOMED Code(s): 76689929437107392 (2) Failure of outpatient treatment Current Visit: Yes Status: Acute Code(s): Z78.9 - OTHER SPECIFIED HEALTH STATUS SNOMED Code(s): 119716995 Plan: 1patient presented to hospital with increasing swelling redness pressure to the left lower extremity this patient who did have left lower extremity ulceration and secondary cellulitis failing outpatient oral Bactrim DS therapy 2 patient to continue with Unasyn 3 g every 6 hours along with Tavares wrap for compression with a culture negative so far recommend oral Augmentin on discharge prescription sent to the pharmacy Dictation was produced using [employer] dictation software. please excuse any grammatical, word or spelling errors. Time with Patient: Less than 30
[2024-03-27 08:02] VITALS: BP 159/80; RESP 16; TEMP 98.3
[2024-03-27 08:25] LABS: Basophils # (A) 0.03 X 10*3/uL (0.00-0.10); Basophils % (A) 0.3 %; Eosinophils # (A) 0.16 X 10*3/uL (0.04-0.35); Eosinophils % (A) 1.4 %; HCT 35.2 % (39.6-50.0); HGB 10.6 g/dL (13.0-17.0); Lymphocytes # (A) 0.48 X 10*3/uL (0.90-5.00); Lymphocytes % (A) 4.2 %; MCH 27.1 pg (27.0-32.0); MCHC 30.1 g/dL (32.0-37.0); Mean Platelet Volume 9.3 FL (9.5-12.2); Monocytes # (A) 0.69 X 10*3/uL (0.20-1.00); Monocytes % (A) 6.1 %; NRBC Per 100 WBC 0 X 10*3/uL (0.00-0.01); Neutrophils # (A) 9.96 X 10*3/uL (1.80-7.70); Neutrophils % (A) 87.5 %; Platelet Count 281 X 10*3/uL (140-440); RBC 3.91 X 10*6/uL (4.40-5.60); RDW 15.9 % (11.5-14.5); WBC 11.38 X 10*3/uL (4.50-10.00)
[2024-03-27 08:52] LABS: BUN/Creat Ratio 18.25 Ratio (12.00-20.00); Blood Urea Nitrogen 14.6 mg/dL (9.0-27.0); Calcium 8.6 mg/dL (8.7-10.3); Carbon Dioxide 29.6 mmol/L (21.6-31.8); Chloride 101 mmol/L (96-109); Glucose 108 mg/dL (70-110); Potassium 4.1 mmol/L (3.5-5.5); Sodium 141 mmol/L (135-145)
[2024-03-27 12:20] VITALS: PULSE 75
--- NOTE | 2024-03-27 14:40 | P.PN ---
Subjective Progress Note Date: 03/26/24 H&P Date: 03/24/24 Chief Complaint: Left lower extremity wound status post trauma, failed outpatient antibiotic This is a pleasant 68-year-old gentleman with past medical history significant for bilateral pneumonia , RSV, severe steroid-dependent COPD , chronic oxygen dependent on 3 L nasal cannula , chronic steroid-dependent ,gastroesophageal reflux disease, former nicotine dependence, esophageal cancer with surgical resection and gastric pull-through, peripheral neuropathy,prostate cancer status post prostatectomy with bilateral pelvic lymph node dissection and stent placement, hypertension, Parkinson's disease, sleep apnea and multiple other med ical issues presented to the ER for worsening left lower extremity wound, on Bactrim outpatient. Reports About 11 days ago he was getting out of the truck and fell on its tailgate, presented to the PCPs office and placed on Bactrim. A affected extremity continued worsening with increased edema, redness, serous drainage and pain. Afebrile, normal WBC, hemoglobin 12, platelets 359, electrolytes, renal function stable. Lactic acid 2.1, resolved with IV fluid hydration currently 0.7. Tib- fib x-ray reported soft tissue edema throughout the lower extremity, correlate for cellulitis, no evidence of fracture. Currently maintaining O2 sats of 94% on 4 L nasal cannula-O2 needs to be titrated down to maintain O2 sats greater than 90. evaluated by wound care team and infectious disease with recommendations noted and appreciated. Maintained on IV fluid hydration, Unasyn. Local wound care with Santyl .Cultures pending. Afebrile, normal WBC. Renal function stable. Blood sugars controlled. 03/26/2024 afebrile, denies chest pain, palpitations or shortness of breath. Significant clinical improvement in edema, redness of lower extremity. Denies pain, reports "itchy". Hypertensive, mild expiratory wheezing, IV fluids discontinued. Continues on Unasyn, cultures finalizing. Objective - Vital Signs Vital signs: Vital Signs Temp 97.7 F 03/26/24 07:00 Pulse 79 03/26/24 12:43 Resp 16 03/26/24 09:33 BP 163/83 03/26/24 07:00 Pulse Ox 97 03/26/24 09:15 FiO2 Intake & Output 03/25/24 03/26/24 03/26/24 18:59 06:59 18:59 Intake Total 804 476 Balance 804 476 Intake: Oral 804 476 Other: Voiding Method Toilet # Voids 1 - Exam VITAL SIGNS: [As above] GENERAL: Alert and oriented 3, Sitting up at side of bed, eating breakfast, no acute distress. HEENT: Normocephalic, atraumatic, Conjunctivae normal. eyes normal. MMM. NECK: Supple, No JVD. CARDIOVASCULAR: S1, S2 regular. No murmur RESPIRATION: Unlabored, equal air entry, fine expiratory wheeze with bilateral bases diminished . ABDOMEN: Soft, nondistended, nontender . No guarding. no masses palpable.+BS. LEGS: Left lower extremity, dressing, clean dry and intact, positive DP pulse NERVOUS SYSTEM: Cranial N 2-12 grossly normal. No focal deficits. Strength and sensation grossly intact. Skin: Warm and dry, no rash - Labs CBC & Chem 7: 03/27/24 04:48 03/27/24 04:48 Labs: Microbiology - Last 24 Hours (Table) 03/23/24 20:15 Blood Culture - Preliminary Blood 03/23/24 20:00 Blood Culture - Preliminary Blood 03/24/24 13:27 Gram Stain - Preliminary Leg - Left Wound Culture - Preliminary Assessment and Plan Assessment: Left lower extremity wound with cellulitis status post trauma 11 days ago, failed outpatient treatment. Lactic acidosis secondary to the above, resolved with IV fluid hydration Chronic hypoxic respiratory failure, wears 3 L nasal cannula at home Severe COPD, steroid-dependent Hypertension History of esophageal cancer with history of partial esophagectomy Former nicotine dependence History of prostate cancer status post prostatectomy Obesity, BMI 32 Plan: Continue on current medication regimen ,monitoring and symptomatic treatment. DC IV fluids. She was finalizing .continue on antibiotics as per ID. Local wound care with Santyl. Blood sugars controlled, maintain close monitoring of blood sugars.Aggressive pulmonary toileting with nebulized bronchodilators, Symbicort and oral steroids. Discharge planning in progress pending finalization of cultures, possibly later today and pending final DC recommendations and clearance per ID. The impression and plan of care has been dictated as directed. : I performed a history and examination of this patient, discussed the same with the dictator. I agree with the dictator's note ,documented as a scribe. Any additional findings or plans will be noted.
--- NOTE | 2024-03-27 14:45 | P.DS ---
Providers Date of admission: 03/25/24 15:34 Expected date of discharge: 03/27/24 Attending physician: Alex Robbins Consults: 03/23/24 22:11 Consult Physician Urgent Consulting Provider: Lucius Khan Consult Reason/Comments: cellulitis Do you want consulting provider notified?: Yes, Notify in am Primary care physician: Alex Robbins Hospital Course: Final Diagnoses: Left lower extremity wound with cellulitis status post trauma 11 days prior, failed outpatient treatment. Lactic acidosis secondary to the above, resolved with IV fluid hydration Chronic hypoxic respiratory failure, wears 3 L nasal cannula at home Severe COPD, steroid-dependent Hypertension History of esophageal cancer with history of partial esophagectomy Former nicotine dependence History of prostate cancer status post prostatectomy Obesity, BMI 32 Hospital course:This is a pleasant 68-year-old gentleman with past medical history significant for bilateral pneumonia , RSV, severe steroid-dependent COPD , chronic oxygen dependent on 3 L nasal cannula , chronic steroid-dependent ,gastroesophageal reflux disease, former nicotine dependence, esophageal cancer with surgical resection and gastric pull-through, peripheral neuropathy,prostate cancer status post prostatectomy with bilateral pelvic lymph node dissection and stent placement, hypertension, Parkinson's disease, sleep apnea and multiple other medical issues presented to the ER for worsening left lower extremity wound, on Bactrim outpatient. Reports About 11 days ago he was getting out of the truck and fell on its tailgate, presented to the PCPs office and placed on Bactrim. A affected extremity continued worsening with increased edema, redness, serous drainage and pain. Afebrile, normal WBC, hemoglobin 12, platelets 359, electrolytes, renal function stable. Lactic acid 2.1, resolved with IV fluid hydration currently 0.7. Tib- fib x-ray reported soft tissue edema throughout the lower extremity, correlate for cellulitis, no evidence of fracture. Currently maintaining O2 sats of 94% on 4 L nasal cannula-O2 needs to be titrated down to maintain O2 sats greater than 90. evaluated by wound care team and infectious disease with recommendations noted and appreciated. Maintained on IV fluid hydration, Unasyn. Local wound care with Santyl .Cultures pending. Afebrile, normal WBC. Renal function stable. Blood sugars controlled. 03/26/2024 afebrile, denies chest pain, palpitations or shortness of breath. Significant clinical improvement in edema, redness of lower extremity. Denies pain, reports "itchy". Hypertensive, mild expiratory wheezing, IV fluids discontinued. Continues on Unasyn, cultures finalizing. cultures negative so far, infectious disease recommending Augmentin at discharge. Patient will be discharged home today after final reevaluation of affected lower extremity per infectious disease, in a stable condition with guarded prognosis. Microbiology 03/23/24 20:15 Blood Blood Culture - Preliminary 03/23/24 20:00 Blood Blood Culture - Preliminary 03/24/24 13:27 Leg - Left Anaerobic Culture - Preliminary 03/24/24 13:27 Leg - Left Gram Stain - Final 03/24/24 13:27 Leg - Left Wound Culture - Final The impression and plan of care has been dictated as directed. : I performed a history and examination of this patient, discussed the same with the dictator. I agree with the dictator's note ,documented as a scribe. Any additional findings or plans will be noted. Patient Condition at Discharge: Stable Plan - Discharge Summary Discharge Rx Participant: Yes New Discharge Prescriptions: New Amoxic-Pot Clav 875-125Mg [Augmentin 875-125] 1 tab PO Q12HR 10 Days #20 tab Collagenase [Santyl Ointment] 1 applic TOPICAL DAILY each Continue Omeprazole 40 mg PO HS cloNIDine HCL [Catapres] 0.1 mg PO BID Losartan Potassium 100 mg PO DAILY Omeprazole 20 mg PO BID rOPINIRole HCL [Requip] 2 mg PO BID DULoxetine HCL [Cymbalta] 60 mg PO DAILY Furosemide [Lasix] 40 mg PO DAILY #7 tablet Fluticasone/Umeclidin/Vilanter [Trelegy Ellipta 200-62.5-25] 1 puff INHALATION RT-DAILY Cyclobenzaprine [Flexeril] 10 mg PO TID PRN PRN Reason: Muscle Spasm Magnesium Oxide [Mag-Ox] 250 mg PO DAILY Ipratropium-Albuterol Nebulize [Duoneb 0.5 mg-3 mg/3 ml Soln] 3 ml INHALATION RT-QID PRN PRN Reason: Shortness Of Breath Albuterol Sulfate [Albuterol Sulfate Hfa] 2 puff INHALATION RT-QID PRN PRN Reason: Shortness Of Breath predniSONE 10 mg PO DAILY #0 Ipratropium-Albuterol Nebulize [Duoneb 0.5 mg-3 mg/3 ml Soln] 3 ml INHALATION RT-QID #100 each Discontinued Sulfamethox-Tmp 800-160Mg [Bactrim DS 800-160 mg] 1 tab PO BID Discharge Medication List Omeprazole 40 mg PO HS 04/26/17 [History] cloNIDine HCL [Catapres] 0.1 mg PO BID 10/02/18 [History] Losartan Potassium 100 mg PO DAILY 03/20/19 [History] Omeprazole 20 mg PO BID 06/08/19 [History] Fluticasone/Umeclidin/Vilanter [Trelegy Ellipta 200-62.5-25] 1 puff INHALATION RT-DAILY 05/25/21 [History] DULoxetine HCL [Cymbalta] 60 mg PO DAILY 07/04/22 [History] rOPINIRole HCL [Requip] 2 mg PO BID 07/04/22 [History] Albuterol Sulfate [Albuterol Sulfate Hfa] 2 puff INHALATION RT-QID PRN 10/23/23 [History] Cyclobenzaprine [Flexeril] 10 mg PO TID PRN 10/23/23 [History] Ipratropium-Albuterol Nebulize [Duoneb 0.5 mg-3 mg/3 ml Soln] 3 ml INHALATION RT-QID PRN 10/23/23 [History] Magnesium Oxide [Mag-Ox] 250 mg PO DAILY 10/23/23 [History] predniSONE 10 mg PO DAILY #0 01/10/24 [Rx] Furosemide [Lasix] 40 mg PO DAILY #7 tablet 01/15/24 [Rx] Ipratropium-Albuterol Nebulize [Duoneb 0.5 mg-3 mg/3 ml Soln] 3 ml INHALATION RT-QID #100 each 01/15/24 [Rx] Amoxic-Pot Clav 875-125Mg [Augmentin 875-125] 1 tab PO Q12HR 10 Days #20 tab 03/26/24 [Rx] Collagenase [Santyl Ointment] 1 applic TOPICAL DAILY each 03/27/24 [Rx] Follow up App[facility]ment(s[facility]Ref[facility] - 1 Week Alex Robbins DO [Primary Care Provider] - 3 Days [facility] [NON-STAFF] - 1 Week Lucius Khan MD [STAFF PHYSICIAN] - 04/13/24 1:45 pm Patient Instructions/Handouts: Cellulitis (ED), Cellulitis (GEN) Activity/Diet/Wound Care/Special Instructions: Wound care as previously advised per wound care center and ID. FOLLOW UP DIRECTED, SOONER FOR WORSENING SYMPTOMS, PROBLEMS, OR CONCERNS. Discharge Disposition: HOME SELF-CARE
--- NOTE | 2024-03-27 20:25 | P.PN ---
Subjective Progress Note Date: 03/27/24 Principal diagnosis: Reason for follow-up is left lower extremity cellulitis Patient is a 68-year-old female with a past medical history significant for COPD reflux hypertension history of esophageal and prostate cancer patient presenting to the hospital for evaluation of left lower extremity swelling redness and this patient noted to have history of laceration to the leg about 10 days prior to presentation to hospital. On today's evaluation that is 03/27/2024, patient has been afebrile, patient is breathing comfortably and is currently on room air, patient denies having any significant cough no chest pain shortness of breath, patient denies nausea vomiting or diarrhea and no abdominal pain, the patient discomfort swelling redness of the left leg has improved. Patient white count slightly up to 11.3 today, creatinine 0.8 culture has been negative Objective - Vital Signs Vital signs: Vital Signs Temp 98.3 F 03/27/24 08:00 Pulse 75 03/27/24 12:19 Resp 16 03/27/24 09:27 BP 159/80 03/27/24 08:00 Pulse Ox 93 L 03/27/24 08:00 FiO2 Intake & Output 03/26/24 03/27/24 03/27/24 18:59 06:59 18:59 Intake Total 594 236 Balance 594 236 Intake: Oral 594 236 Other: Voiding Method Toilet Toilet Toilet # Voids 3 1 - Exam GENERAL DESCRIPTION: An elderly male up in the chair in no distress RESPIRATORY SYSTEM: Unlabored breathing , decreased breath sounds at bases HEART: S1 S2 regular rate and rhythm , ABDOMEN: Soft , no tenderness EXTREMITIES: Left leg swelling redness has decreased minimal slough tissue on the wound - Labs CBC & Chem 7: 03/27/24 04:48 03/27/24 04:48 Labs: Abnormal Lab Results - Last 24 Hours (Table) 03/27/24 03/27/24 Range/Units 04:48 04:48 WBC 11.38 H (4.50-10.00) X 10*3/uL RBC 3.91 L (4.40-5.60) X 10*6/uL Hgb 10.6 L (13.0-17.0) g/dL Hct 35.2 L (39.6-50.0) % MCHC 30.1 L (32.0-37.0) g/dL RDW 15.9 H (11.5-14.5) % MPV 9.3 L (9.5-12.2) FL Immature Gran # 0.06 H (0.00-0.04) X 10*3/uL Neutrophils # 9.96 H (1.80-7.70) X 10*3/uL Lymphocytes # 0.48 L (0.90-5.00) X 10*3/uL Calcium 8.6 L (8.7-10.3) mg/dL Microbiology - Last 24 Hours (Table) 03/23/24 20:15 Blood Culture - Preliminary Blood 03/23/24 20:00 Blood Culture - Preliminary Blood 03/24/24 13:27 Anaerobic Culture - Preliminary Leg - Left 03/24/24 13:27 Gram Stain - Final Leg - Left Wound Culture - Final Assessment and Plan (1) Left leg cellulitis Status: Acute Code(s): L03.116 - CELLULITIS OF LEFT LOWER LIMB SNOMED Code(s): 67422721510424695 (2) Failure of outpatient treatment Status: Acute Code(s): Z78.9 - OTHER SPECIFIED HEALTH STATUS SNOMED Code(s): 750938768 Plan: 1patient presented to hospital with increasing swelling redness pressure to the left lower extremity this patient who did have left lower extremity ulceration and secondary cellulitis failing outpatient oral Bactrim DS therapy 2 patient has shown clinical improvement culture has been negative for resistant pathogen plan is to finish therapy oral Augmentin discussed with [employer] for admitting team Dictation was produced using [employer] dictation software. please excuse any grammatical, word or spelling errors. Time with Patient: Less than 30
== END 2024-03-27 13:34 | disposition home or self-care (01) | DRG 603 ==
LOC: EC 19:04 → 6NMEDSUR 22:13 → OBSVTOIN 03-25 15:34
PROVIDERS: ADMIT Family Medicine; ATTEND Family Medicine
DX: L03.116 Cellulitis of left lower limb (principal); J96.11 Chronic respiratory failure with hypoxia; E87.20 Acidosis, unspecified; L97.822 Non-pressure chronic ulcer of other part of left lower leg with fat layer exposed; J44.9 Chronic obstructive pulmonary disease, unspecified; I10 Essential (primary) hypertension; E66.9 Obesity, unspecified; Z87.891 Personal history of nicotine dependence; Z90.49 Acquired absence of other specified parts of digestive tract; Z90.79 Acquired absence of other genital organ(s); Z68.32 Body mass index [BMI] 32.0-32.9, adult; Z87.19 Personal history of other diseases of the digestive system; K21.9 Gastro-esophageal reflux disease without esophagitis; Z80.0 Family history of malignant neoplasm of digestive organs; Z85.46 Personal history of malignant neoplasm of prostate; Z77.090 Contact with and (suspected) exposure to asbestos; Z79.52 Long term (current) use of systemic steroids; Z79.899 Other long term (current) drug therapy; Z66 Do not resuscitate; Z59.6 Low income; Z85.01 Personal history of malignant neoplasm of esophagus; Z96.651 Presence of right artificial knee joint; Z99.81 Dependence on supplemental oxygen; G62.9 Polyneuropathy, unspecified; F41.9 Anxiety disorder, unspecified; G47.30 Sleep apnea, unspecified; G20.A1 Parkinson's disease without dyskinesia, without mention of fluctuations; I73.9 Peripheral vascular disease, unspecified; Z87.01 Personal history of pneumonia (recurrent); Z91.81 History of falling
CPT/HCPCS: 36415; 80048; 80053; 83605; 85025; 87040; 87070; 87075; 87205; 90471; 90715; 94640; 94760; 96365; 96366; 96375; 99285

== ENCOUNTER → 2024-04-03 | Outpatient (CLI) | payer MEDICARE ==
[2024-04-03 17:44] LABS: Prostate Specific Antigen <0.01 ng/mL (0.000-4.500)
== END | disposition home or self-care (01) ==
LOC: LABWHC1 11:00
PROVIDERS: ATTEND Urology
DX: C61 Malignant neoplasm of prostate (principal); C77.9 Secondary and unspecified malignant neoplasm of lymph node, unspecified
CPT/HCPCS: 36415; 84153; 84403

== ENCOUNTER → 2024-09-16 | Outpatient (CLI) | payer MEDICARE ==
[2024-09-16 12:34] LABS: African American GFR (CKD) >90 (>60 ml/min/1.73 sqM); Blood Urea Nitrogen 27 mg/dL (9-20); Non-African American GFR(CKD) >90 (>60 ml/min/1.73 sqM)
--- NOTE | 2024-09-16 14:10 | CT ---
EXAMINATION TYPE: CT urogram wo/w con CT DLP: 3690.5 mGycm, Automated exposure control for dose reduction was used. DATE OF EXAM: 09/16/2024 1:47 PM COMPARISON: PET CT 04/05/2023, CT urogram 10/15/2022 CLINICAL INDICATION:Male, 69 years old with history of R31.0 GROSS HEMATURIA; PHH, hematuria TECHNIQUE: Urogram of the abdomen and pelvis was performed before and after the administration of 100 cc of IV c ontrast Isovue 300 contrast. Delayed imaging was performed. Coronal and sagittal reformats were perfo rmed. One or more CT dose reduction strategies were utilized during this examination. 2D and 3D recon structions are performed to assist visualization of the urinary tract on a separate workstation. FINDINGS: GENITOURINARY: RIGHT KIDNEY AND URETER: No calculi. No hydronephrosis or hydroureter. No suspicious enhancing renal mass. Couple of tiny stable subcentimeter cortical cysts. There is poor opacification of the mid and distal portions of the right ureter. No urothelial lesions definitely identified: no filling defect, dilation, stricture or wall thickening. LEFT KIDNEY AND URETER: No calculi. No hydronephrosis or hydroureter. No suspicious enhancing renal m ass. Stable subcentimeter cysts within the left kidney medially. There is poor opacification of the p roximal portion of the left ureter. No urothelial lesions definitively identified: no filling defect, dilation, stricture or wall thickening. URINARY BLADDER: Mildly distended. Only the lower part of the dependent portion of the urinary bladde r is opacified with contrast. Normal, no calculi, mass or other lesions. REPRODUCTIVE: Prostate gland is surgically absent. ABDOMEN LIVER: . GALLBLADDER AND BILE DUCTS: Unremarkable PANCREAS: Unremarkable. SPLEEN: Unremarkable. ADRENAL GLANDS: Stable right adrenal gland lipid rich adenoma measuring up to 1.8 cm. Left adrenal gl and is unremarkable. STOMACH AND BOWEL: Post surgical changes from esophagectomy and gastric pull-through. Redundant sigmo id colon. Distal colonic diverticulosis without evidence for acute diverticulitis. Similar chronic wa ll thickening of the sigmoid colon. No evidence of bowel obstruction. PERITONEUM: No evidence of pneumoperitoneum, free fluid, or adenopathy. VASCULATURE: Atherosclerotic calcifications are present throughout the abdominal aorta and its branch es. No abdominal aortic aneurysm. MUSCULOSKELETAL: No acute osseous abnormalities. Degenerative changes of the pubic symphysis. Grade I anterolisthesis of L5 on S1 redemonstrated with bilateral pars defect. Hypertrophic facet arthropath y lower lumbar spine. SOFT TISSUE/ABDOMINAL WALL: Left inguinal hernia containing fat. LOWER CHEST: Post surgical changes from esophagectomy and gastric pull-through. Right lower lobe philippe cent atelectasis. Coronary artery calcifications. IMPRESSION: 1. No evidence of urolithiasis or suspicious renal/urothelial neoplasm within limitations. 2. Stable subcentimeter bilateral renal cortical cysts. 3. Colonic diverticulosis without evidence for acute diverticulitis. 4. Postsurgical changes from esophagectomy with gastric pull-through. 5. Status post prostatectomy. [facility], , 09/16/2024 2:07 PM
== END | disposition home or self-care (01) ==
LOC: RADCTMAIN 11:38
PROVIDERS: ATTEND Urology
DX: N28.1 Cyst of kidney, acquired (principal); R31.0 Gross hematuria; Z90.79 Acquired absence of other genital organ(s); K57.30 Diverticulosis of large intestine without perforation or abscess without bleeding; I70.0 Atherosclerosis of aorta
CPT/HCPCS: 82565; 84520; 74178; 36415; 74400; Q9967

== ENCOUNTER → 2024-09-24 | Outpatient (CLI) | payer MEDICARE ==
[2024-09-24 16:14] LABS: Prostate Specific Antigen <0.01 ng/mL (0.000-6.500)
== END | disposition home or self-care (01) ==
LOC: LABWHC1 07:55
PROVIDERS: ATTEND Radiology Radiation Oncology
DX: C61 Malignant neoplasm of prostate (principal); C77.9 Secondary and unspecified malignant neoplasm of lymph node, unspecified; Z85.46 Personal history of malignant neoplasm of prostate
CPT/HCPCS: 36415; 84153; 84403

== ENCOUNTER → 2024-10-29 | Outpatient (CLI) | payer MEDICARE | END | disposition home or self-care (01) | LOC: LABWHC1 10:32 | PROVIDERS: ATTEND Psychiatry & Neurology Neurology | DX: G62.9 Polyneuropathy, unspecified (principal); Z79.899 Other long term (current) drug therapy | CPT/HCPCS: 36415; 82607; 83036 ==

== ENCOUNTER 2025-03-05 18:25 | Emergency (ER) | payer MEDICARE ==
[2025-03-05 18:29] VITALS: TEMP 97.7
[2025-03-05 18:49] LABS: Basophils # (A) 0.06 10*3/uL (0.00-0.10); Basophils % (A) 0.3 %; Eosinophils # (A) 0.03 10*3/uL (0.04-0.35); Eosinophils % (A) 0.1 %; HCT 45.1 % (39.6-50.0); HGB 14.8 g/dL (13.0-17.0); Lymphocytes # (A) 0.52 10*3/uL (0.90-5.00); Lymphocytes % (A) 2.5 %; MCH 28.5 pg (27.0-32.0); MCHC 32.8 g/dL (32.0-37.0); MCV 86.9 fL (80.0-97.0); Mean Platelet Volume 8.7 fL (9.5-12.2); Monocytes # (A) 0.98 10*3/uL (0.20-1.00); Monocytes % (A) 4.8 %; Neutrophils # (A) 18.75 10*3/uL (1.80-7.70); Neutrophils % (A) 91.8 %; Platelet Count 304 10*3/uL (140-440); RBC 5.19 10*6/uL (4.40-5.60); RDW 14.6 % (11.5-14.5); WBC 20.44 10*3/uL (4.50-10.00)
--- NOTE | 2025-03-05 19:01 | XR ---
EXAMINATION TYPE: XR chest 2V DATE OF EXAM: 03/05/2025 6:52 PM COMPARISON: Chest radiographs from CLINICAL INDICATION: Male, 69 years old with history of Chest Pain; [facility] TECHNIQUE: XR chest 2V Frontal and lateral views of the chest. FINDINGS: Air-fluid level in the upper mediastinum possibly reflecting sequelae of previous gastric pull-throug h. Cardiomegaly. Near-complete opacification of the right hemithorax which likely reflects accommodation of pleural ef fusion and atelectasis. Left lung appears clear. No pneumothorax. Right shoulder arthroplasty. IMPRESSION: Near complete opacification of the right hemithorax suggestive of pleural effusion and atelectasis. [facility], , 03/05/2025 6:59 PM
[2025-03-05 19:05] LABS: ALT 17 U/L (4-49); AST 19 U/L (17-59); African American GFR (CKD) >90 (>60 ml/min/1.73 sqM); Albumin 4.2 g/dL (3.5-5.0); Alkaline Phosphatase 84 U/L (38-126); Anion Gap 12 mmol/L; Blood Urea Nitrogen 21 mg/dL (9-20); Calcium 9.1 mg/dL (8.4-10.2); Carbon Dioxide 22 mmol/L (22-30); Chloride 103 mmol/L (98-107); Glucose 131 mg/dL (74-99); Magnesium 2.2 mg/dL (1.6-2.3); Non-African American GFR(CKD) >90 (>60 ml/min/1.73 sqM); Potassium 4.5 mmol/L (3.5-5.1); Sodium 137 mmol/L (137-145); Total Bilirubin 1.1 mg/dL (0.2-1.3); Total Protein 6.9 g/dL (6.3-8.2)
[2025-03-05 19:09] LABS: Partial Thromboplastin Time 24.2 sec (22.0-30.0); Prothrombin Time 10.7 sec (10.0-12.5)
--- NOTE | 2025-03-05 23:12 | ED ---
Chest Pain HPI - General Chief Complaint: Chest Pain Stated Complaint: GIULIANO Time Seen by Provider: 03/05/25 20:00 Source: patient Mode of arrival: ambulatory Limitations: no limitations - History of Present Illness Initial Comments: 69-year-old male who presents emergency department reporting shortness of breath. He does have a history of COPD and wears 3 L at all times. Patient also takes 10 mg of prednisone daily. Patient has no history of coronary disease. Coming in today reporting chest pain that has been going on for the past 2 days. Describes it as a pressure sensation in the middle of his chest. He also also had a very significant productive cough. Denies any sick contacts. No history of DVT or PE. No fevers. He does have a history of esophageal cancer with gastric pull-through. He denies any abdominal pain. No nausea or vomiting. No changes in his bowel or bladder habits. No other alleviating, precipitating or modifying factors - Related Data Home Medications Medication Instructions Recorded Confirmed Omeprazole 40 mg PO DAILY 04/26/17 03/05/25 cloNIDine HCL [Catapres] 0.1 mg PO BID 10/02/18 03/05/25 Losartan Potassium 100 mg PO DAILY 03/20/19 03/05/25 Fluticasone/Umeclidin/Vilanter 1 puff INHALATION RT-DAILY 05/25/21 03/05/25 [Trelegy Ellipta 200-62.5-25] DULoxetine HCL [Cymbalta] 60 mg PO DAILY 07/04/22 03/05/25 rOPINIRole HCL [Requip] 2 mg PO BID 07/04/22 03/05/25 Albuterol Sulfate [Albuterol 2 puff INHALATION RT-QID 10/23/23 03/05/25 Sulfate Hfa] Ipratropium-Albuterol Nebulize 3 ml INHALATION RT-QID PRN 10/23/23 03/05/25 [Duoneb 0.5 mg-3 mg/3 ml Soln] Magnesium Oxide [Mag-Ox] 250 mg PO DAILY 10/23/23 03/05/25 Amoxicillin 2,000 mg PO ONCE PRN 03/05/25 03/05/25 Baclofen [Lioresal] 20 mg PO HS 03/05/25 03/05/25 Previous Rx's Medication Instructions Recorded predniSONE 10 mg PO DAILY #0 01/10/24 Furosemide [Lasix] 40 mg PO DAILY #7 tablet 01/15/24 Levofloxacin [Levaquin] 750 mg PO DAILY #5 tab 03/05/25 Allergies Allergy/AdvReac Type Severity Reaction Status Date / Time No Known Allergies Allergy Verified 03/05/25 20:48 Review of Systems ROS Statement: Those systems with pertinent positive or pertinent negative responses have been documented in the HPI. ROS Other: All systems not noted in ROS Statement are negative. Past Medical History Past Medical History: Cancer, COPD, GERD/Reflux, Hypertension Additional Past Medical History / Comment(s): Neuropathy, hx esophageal cancer treated with surgery - 2008,. prostate cancer current 10/2023 History of Any Multi-Drug Resistant Organisms: None Reported Past Surgical History: Appendectomy, Hernia Repair, Joint Replacement, Orthopedic Surgery Additional Past Surgical History / Comment(s): Bilateral elbow, bilateral wrist carpal tunnel, bilateral rotator cuff surgeryx3 , right knee arthroscopy, right knee replacement, surgery for esophageal cancer (removed part of esophagus and removed part of stomach making it into carrot shape per patient), hernia repair X4. robotic prostatectomy with bilateral stent placement and pelvic lymph node removal 08/11/20 Past Anesthesia/Blood Transfusion Reactions: Previous Problems w/ Anesthesia Additional Past Anesthesia/Blood Transfusion Reaction / Comment(s): cannot lay flat- "stomach acid will come out my nose" Past Psychological History: Anxiety, Depression Smoking Status: Former smoker Past Alcohol Use History: None Reported Past Drug Use History: None Reported - Past Family History Father Family Medical History: Cancer Additional Family Medical History / Comment(s): COLON Cancer. Mother Family Medical History: Cancer, Deep Vein Thrombosis (DVT) Additional Family Medical History / Comment(s): Brain aneurysm. General Exam Limitations: no limitations General appearance: alert, in no apparent distress Head exam: Present: atraumatic, normocephalic, normal inspection Eye exam: Present: normal appearance, PERRL, EOMI. Absent: scleral icterus, conjunctival injection, periorbital swelling ENT exam: Present: normal exam, mucous membranes moist Neck exam: Present: normal inspection. Absent: tenderness, meningismus, lymphadenopathy Respiratory exam: Present: decreased breath sounds (right base). Absent: respiratory distress, wheezes, rales, rhonchi, stridor Cardiovascular Exam: Present: regular rate, normal rhythm, normal heart sounds. Absent: systolic murmur, diastolic murmur, rubs, gallop, clicks GI/Abdominal exam: Present: soft, normal bowel sounds. Absent: distended, tenderness, guarding, rebound, rigid Extremities exam: Present: normal inspection, full ROM, normal capillary refill. Absent: tenderness, pedal edema, joint swelling, calf tenderness Back exam: Present: normal inspection Neurological exam: Present: alert, oriented X3, CN II-XII intact Psychiatric exam: Present: normal affect, normal mood Skin exam: Present: warm, dry, intact, normal color. Absent: rash Course Vital Signs 03/05/25 03/05/25 03/05/25 18:27 20:00 21:35 Temperature 97.7 F Pulse Rate 101 H 96 89 Respiratory 18 20 18 Rate Blood Pressure 141/77 132/83 122/71 O2 Sat by Pulse 90 L 91 L 90 L Oximetry 03/05/25 03/06/25 23:22 00:18 Temperature Pulse Rate 91 93 Respiratory 16 18 Rate Blood Pressure 140/86 141/82 O2 Sat by Pulse 90 L 93 L Oximetry Chest Pain MDM - MDM Was pt. sent in by a medical professional or institution (, PA, CO CHAIRMAN, urgent care, hospital, or correction...) When possible be specific @ -No Did you speak to anyone other than the patient for history (EMS, parent, family, police, friend...)? What history was obtained from this source @ -spoke with for history Did you review nursing and triage notes (agree or disagree)? Why? @ -I reviewed and agree with nursing and triage notes Were old charts reviewed (outside hosp., previous admission, EMS record, old EKG, old radiological studies, urgent care reports/EKG's, correction records)? Report findings @ -No old charts were reviewed Differential Diagnosis (chest pain, altered mental status, abdominal pain women, abdominal pain men, vaginal bleeding, weakness, fever, dyspnea, syncope, headache, dizziness, GI bleed, back pain, seizure, CVA, palpatations, mental health, musculoskeletal)? @ -Differential Dyspnea: Coronary syndrome, arrhythmia, tamponade, asthma, COPD, pulmonary embolism, pneumonia, pneumothorax, pulmonary effusion, anaphylaxis, diabetic ketoacidosis, flailed chest, pulmonary contusion, diaphragmatic rupture, anemia, neuromuscular, this is not meant to be an all-inclusive list. EKG interpreted by me (3pts min.). @ -Yes and demonstrates a sinus tachycardia with a rate of 106. AK interval 129. QRS 141. QTc of 374. No acute ST segment elevations. Right bundle branch block X-rays interpreted by me (1pt min.). @ -yes and demonstrates opacity of the right hemithorax CT interpreted by me (1pt min.). @ -yes and demonstrates gastric pull though with left sided pneumonia U/S interpreted by me (1pt. min.). @ -None done What testing was considered but not performed or refused? (CT, X-rays, U/S, labs)? Why? @ -None What meds were considered but not given or refused? Why? @ -iv antibiotics - patient does not want to be admitted to the hospital Did you discuss the management of the patient with other professionals (professionals i.e. , PA, CO CHAIRMAN, lab, RT, psych nurse, social media strategist, senior care manager, teacher, county records management officer, residential case manager)? Give summary @ -No Was smoking cessation discussed for >3mins.? @ -No Was critical care preformed (if so, how long)? @ -No Were there social determinants of health that impacted care today? How? (Homelessness, low income, unemployed, alcoholism, drug addiction, transportation, low edu. Level, literacy, decrease access to med. care, nursing home, rehab)? @ -No Was there de-escalation of care discussed even if they declined (Discuss DNR or withdrawal of care, Hospice)? DNR status @ -No What co-morbidities impacted this encounter? (DM, HTN, Smoking, COPD, CAD, Cancer, CVA, ARF, Chemo, Hep., AIDS, mental health diagnosis, sleep apnea, morbid obesity)? @ -copd, hx esophageal cancer with gastric pullthrough Was patient admitted / discharged? Hospital course, mention meds given and route, prescriptions, significant lab abnormalities, going to OR and other pertinent info. @ -upon arrival patient see and evaluated in room 5. History and physical performed. Patient placed on his home oxygen. Labs conducted. Chest xray performed. This is followed by a CT due to patients previous history. CT demonstrates gastric pull through with pneumonia. Discussed admission with the patient however he is adamant he wants to go home. He was given a dose of Levaquin. He will be discharged on Levaquin. Must follow with pulmonology for re-evaluation and return for any new or worsening symptoms. Patient discharged in stable condition after strict return parameters discussed. Undiagnosed new problem with uncertain prognosis? @ -No Drug Therapy requiring intensive monitoring for toxicity (Heparin, Nitro, Insulin, Cardizem)? @ -No Were any procedures done? @ -No Diagnosis/symptom? @ -acute resp insuff/chronic resp failure, acute CAP Acute, or Chronic, or Acute on Chronic? @ -acute Uncomplicated (without systemic symptoms) or Complicated (systemic symptoms)? @ -complicated Side effects of treatment? @ -No Exacerbation, Progression, or Severe Exacerbation? @ -No Poses a threat to life or bodily function? How? (Chest pain, [place], [place], pneumonia, PE, COPD, DKA, ARF, appy, cholecystitis, CVA, Diverticulitis, Homicidal, Suicidal, threat to staff... and all critical care pts) @ -No Disposition Clinical Impression: COPD (chronic obstructive pulmonary disease), Pneumonia Disposition: HOME SELF-CARE Condition: Stable Instructions (If sedation given, give patient instructions): Bacterial Pneumonia (ED) Additional Instructions: Please take the antibiotics as they are instructed starting tomorrow. Follow-up with your laboratory supervisor. Continue taking all of your other medications as they are instructed. Return should you develop a fever, have worsening shortness of breath or have worsening pulse ox. Prescriptions: Levofloxacin [Levaquin] 750 mg PO DAILY #5 tab Is patient prescribed a controlled substance at d/c from ED?: No Referrals: Alex Robbins DO [Primary Care Provider] - 1-2 days Time of Disposition: 23:54
--- NOTE | 2025-03-05 23:45 | CT ---
EXAM: CT Angiography Chest With Intravenous Contrast CLINICAL HISTORY: ITS.REASON CT Reason: opacified right hemithorax TECHNIQUE: Axial computed tomographic angiography images of the chest with intravenous contrast. CTDI is 10.1 mGy and DLP is 555.2 mGy-cm. This CT exam was performed using one or more of the following dose reduction techniques: automated exposure control, adjustment of the mA and/or kV according to patient size, and/or use of iterative reconstruction technique. MIP reconstructed images were created and reviewed. COMPARISON: No relevant prior studies available. FINDINGS: Pulmonary arteries: Unremarkable. No pulmonary embolism. Aorta: No acute findings. No thoracic aortic aneurysm. Lungs: Patchy ground-glass opacities scattered throughout the left upper and to a lesser extent left lower lobe. Elevation of the right hemidiaphragm with right lower lobe atelectasis. Right lower lobe atelectasis. Pleural space: Unremarkable. No significant effusion. No pneumothorax. Heart: Coronary artery calcifications. No cardiomegaly. No significant pericardial effusion. No evidence of RV dysfunction. Mediastinum: Postoperative changes esophagectomy with gastric pull- through. Bones/joints: See below. Soft tissues: Unremarkable. Lymph nodes: Mild AP window lymphadenopathy postoperative changes right shoulder arthroplasty. IMPRESSION: No acute findings in the visualized arteries of the chest. Postoperative changes esophagectomy with gastric pull-through left upper lobe pneumonia.
[2025-03-06] MEDS: LEVOFLOXACIN 750 MG TAB PO STA (00:13)
[2025-03-06 00:19] VITALS: BP 141/82; PULSE 93; RESP 18
== END 2025-03-06 00:19 | disposition home or self-care (01) ==
LOC: EC 18:25
DX: J44.9 Chronic obstructive pulmonary disease, unspecified (principal); J18.9 Pneumonia, unspecified organism; J96.10 Chronic respiratory failure, unspecified whether with hypoxia or hypercapnia; Z85.01 Personal history of malignant neoplasm of esophagus; Z87.891 Personal history of nicotine dependence
CPT/HCPCS: 36415; 93005; 80053; 83735; 84484; 85025; 85610; 85730; 71046; 71275; 99285; Q9967

== ENCOUNTER 2025-03-09 18:20 | Emergency (ER) | payer MEDICARE ==
[2025-03-09 18:28] VITALS: TEMP 97.9
[2025-03-09] MEDS: SODIUM CHLORIDE 0.9% 500 ML 500 ML IV ONE (19:41)
[2025-03-09] MEDS: DICYCLOMINE 10 MG/ML 2 ML AMP IM STA (19:41)
--- NOTE | 2025-03-09 19:41 | XR ---
EXAMINATION TYPE: XR chest 2V DATE OF EXAM: 03/09/2025 7:36 PM COMPARISON: Chest radiographs from 03/05/2025, CT chest 02/20/2024 TECHNIQUE: XR chest 2V Frontal and lateral views of the chest. CLINICAL INDICATION:Male, 69 years old with history of GIULIANO; FINDINGS: Lungs/Pleura: No pneumothorax or pleural effusion. The left lung is clear. Redemonstration of patchy airspace opacity within the right mid and lower lung. Pulmonary vascularity: Unremarkable. Heart/mediastinum: Cardiomediastinal silhouette is enlarged and stable. Surgical changes from esopha gectomy and gastric pull-through is better appreciated on prior CT. Musculoskeletal: No acute osseous pathology. Right shoulder arthroplasty changes. IMPRESSION: Patchy airspace opacities within the right mid and lower lung consistent with pneumonia. [facility], , 03/09/2025 7:39 PM
--- NOTE | 2025-03-09 19:44 | ED ---
Abdominal Pain HPI - General Chief Complaint: Abdominal Pain Stated Complaint: Poss Cdiff-sent by PCP Time Seen by Provider: 03/09/25 18:58 Source: patient, RN notes reviewed Mode of arrival: ambulatory Limitations: no limitations - History of Present Illness Initial Comments: This is a 69-year-old male who presents to the emergency department for abdomi nal pain and diarrhea. Patient was evaluated here 4 days ago and diagnosed with pneumonia. He was started on Levaquin. He also took amoxicillin prior to a dental appointment. States that 2 days ago he started developing lower abdominal cramping and diarrhea. His PCP advised he come in for evaluation of possible C. difficile. Denies any history of C. difficile. He is having 2-3 bowel movements a day. States that they are loose but not straight water. He has mild nausea but no vomiting. Does not necessarily feel like the pneumonia is getting better, but does not believe it is any worse. He does have a history of COPD and wears oxygen at baseline. MD Complaint: abdominal pain - Related Data Home Medications Medication Instructions Recorded Confirmed Omeprazole 40 mg PO DAILY 04/26/17 03/05/25 cloNIDine HCL [Catapres] 0.1 mg PO BID 10/02/18 03/05/25 Losartan Potassium 100 mg PO DAILY 03/20/19 03/05/25 Fluticasone/Umeclidin/Vilanter 1 puff INHALATION RT-DAILY 05/25/21 03/05/25 [Trelegy Ellipta 200-62.5-25] DULoxetine HCL [Cymbalta] 60 mg PO DAILY 07/04/22 03/05/25 rOPINIRole HCL [Requip] 2 mg PO BID 07/04/22 03/05/25 Albuterol Sulfate [Albuterol 2 puff INHALATION RT-QID 10/23/23 03/05/25 Sulfate Hfa] Ipratropium-Albuterol Nebulize 3 ml INHALATION RT-QID PRN 10/23/23 03/05/25 [Duoneb 0.5 mg-3 mg/3 ml Soln] Magnesium Oxide [Mag-Ox] 250 mg PO DAILY 10/23/23 03/05/25 Amoxicillin 2,000 mg PO ONCE PRN 03/05/25 03/05/25 Baclofen [Lioresal] 20 mg PO HS 03/05/25 03/05/25 Previous Rx's Medication Instructions Recorded predniSONE 10 mg PO DAILY #0 01/10/24 Furosemide [Lasix] 40 mg PO DAILY #7 tablet 01/15/24 Levofloxacin [Levaquin] 750 mg PO DAILY #5 tab 03/05/25 Dicyclomine [Bentyl] 10 mg PO QID PRN #30 capsule 03/09/25 Allergies Allergy/AdvReac Type Severity Reaction Status Date / Time No Known Allergies Allergy Verified 03/09/25 18:28 Review of Systems ROS Statement: Those systems with pertinent positive or pertinent negative responses have been documented in the HPI. ROS Other: All systems not noted in ROS Statement are negative. Past Medical History Past Medical History: Cancer, COPD, GERD/Reflux, Hypertension Additional Past Medical History / Comment(s): Neuropathy, hx esophageal cancer treated with surgery - 2008,. prostate cancer current 10/2023 History of Any Multi-Drug Resistant Organisms: None Reported Past Surgical History: Appendectomy, Hernia Repair, Joint Replacement, Orthopedic Surgery Additional Past Surgical History / Comment(s): Bilateral elbow, bilateral wrist carpal tunnel, bilateral rotator cuff surgeryx3 , right knee arthroscopy, right knee replacement, surgery for esophageal cancer (removed part of esophagus and removed part of stomach making it into carrot shape per patient), hernia repair X4. robotic prostatectomy with bilateral stent placement and pelvic lymph node removal 08/11/20 Past Anesthesia/Blood Transfusion Reactions: Previous Problems w/ Anesthesia Additional Past Anesthesia/Blood Transfusion Reaction / Comment(s): cannot lay flat- "stomach acid will come out my nose" Past Psychological History: Anxiety, Depression Smoking Status: Former smoker Past Alcohol Use History: None Reported Past Drug Use History: None Reported - Past Family History Father Family Medical History: Cancer Additional Family Medical History / Comment(s): COLON Cancer. Mother Family Medical History: Cancer, Deep Vein Thrombosis (DVT) Additional Family Medical History / Comment(s): Brain aneurysm. General Exam Limitations: no limitations General appearance: alert, in no apparent distress Head exam: Present: atraumatic, normocephalic, normal inspection Respiratory exam: Present: decreased breath sounds, prolonged expiratory Cardiovascular Exam: Present: regular rate, normal rhythm GI/Abdominal exam: Present: soft, normal bowel sounds. Absent: distended, tenderness, guarding, rebound, rigid Neurological exam: Present: alert, oriented X3, CN II-XII intact Psychiatric exam: Present: normal affect, normal mood Skin exam: Present: warm, dry, intact, normal color. Absent: rash Course Vital Signs 03/09/25 03/09/25 03/09/25 18:25 19:45 21:55 Temperature 97.9 F Pulse Rate 87 79 70 Respiratory 20 18 18 Rate Blood Pressure 136/80 134/89 150/82 O2 Sat by Pulse 96 98 100 Oximetry Medical Decision Making - Medical Decision Making This is a 69-year-old male who presents to the emergency department for lower abdominal pain and diarrhea. Was pt. sent in by a medical professional or institution? @ -His PCP Did you speak to anyone other than the patient for history? @ -No Did you review nursing and triage notes? @ -Yes, and I agree, it is accurate with regards to the patient's symptoms. Were old charts reviewed? @ -No Differential Diagnosis? @ -Differential Abdominal Pain Men: Appendicitis, cholecystitis, diverticulosis, ischemic bowel, pancreatitis, hepatitis, UTI, gastroenteritis, AAA, incarcerated hernia, bowel obstruction, constipation, inflammatory bowel, hepatitis, peptic ulcer disease, splenic infarction, perforated viscus, testicular torsion, this is not meant to be an all-inclusive list EKG interpreted by me (3pts min.)? @ -Not obtained X-rays interpreted by me (1pt min.)? @ -Chest x-ray obtained. My interpretation identifies right-sided opacities. CT interpreted by me (1pt min.)? @ -Not obtained U/S interpreted by me (1pt. min.)? @ -Not obtained What testing was considered but not performed? (CT, X-rays, U/S, labs)? Why? @ -None What meds were considered but not given? Why? @ -None Did you discuss the management of the patient with other professionals? @ -No Did you reconcile home meds? @ -No Was smoking cessation discussed for >3mins.? @ -No Was critical care preformed (if so, how long)? @ -No Were there social determinants of health that impacted care today? How? (Homelessness, low income, unemployed, alcoholism, drug addiction, transportation, low edu. Level, literacy, decrease access to med. care, nursing home, rehab)? @ -No Was there de-escalation of care discussed even if they declined? (Discuss DNR or withdrawal of care, Hospice)? @ -No What co-morbidities impacted this encounter? (DM, HTN, Smoking, COPD, CAD, Cancer, CVA, Hep., AIDS, mental health diagnosis, sleep apnea, morbid obesity)? @ -COPD Was patient admitted / discharged? @ -Discharged. Lab work unremarkable. COVID, influenza, and RSV testing negative. Urinalysis negative for signs of infection. Chest x-ray demonstrates patchy airspace opacities in the right mid and lower lung consistent with pneumonia, which the patient was diagnosed with 4 days ago. We attempted to obtain a stool sample from the patient, however over the course of over 3.5 hours, he was unable to provide a stool sample. Given that he is only having 2- 3 bowel movements a day and there is still some formed of this, advised that C. difficile would be very unlikely. Given that he was unable to provide a sample in the emergency department he was sent home with a stool collection kit. Advised taking his antibiotics with food to see if that reduces the stomach upset. Also discussed the use of probiotics. Bentyl prescribed for any additional abdominal cramping. Also advised [id number] Imodium. Patient discharged home in stable condition. Case discussed with ED attending Dr. Roberson. Return precautions reviewed in depth, the patient is instructed to return to the emergency department with any new, worsening, or concerning symptoms. Patient verbalized understanding. Undiagnosed new problem with uncertain prognosis? @ -None Drug Therapy requiring intensive monitoring for toxicity (Heparin, Nitro, Insulin, Cardizem)? @ -None Were any procedures done? @ -None Diagnosis/symptom? @ -Diarrhea, abdominal cramping, pneumonia Acute, or Chronic, or Acute on Chronic? @ -Acute Uncomplicated (without systemic symptoms) or Complicated (systemic symptoms)? @ -Uncomplicated Side effects of treatment? @ -None Exacerbation, Progression, or Severe Exacerbation] @ -Not applicable Poses a threat to life or bodily function? @ -No - Lab Data Result diagrams: 03/09/25 20:05 03/09/25 19:34 Lab Results 03/09/25 03/09/25 03/09/25 Range/Units 19:34 19:34 19:34 WBC (4.50-10.00) 10*3/uL RBC (4.40-5.60) 10*6/uL Hgb (13.0-17.0) g/dL Hct (39.6-50.0) % MCV (80.0-97.0) fL MCH (27.0-32.0) pg MCHC (32.0-37.0) g/dL Plt Count (140-440) 10*3/uL MPV (9.5-12.2) fL Immature Gran % (Auto) % Neutrophils % % Lymphocytes % % Monocytes % % Eosinophils % % Basophils % % Immature Gran # (0.00-0.04) 10*3/uL Neutrophils # (1.80-7.70) 10*3/uL Lymphocytes # (0.90-5.00) 10*3/uL Monocytes # (0.20-1.00) 10*3/uL Eosinophils # (0.04-0.35) 10*3/uL Basophils # (0.00-0.10) 10*3/uL Sodium 137 (137-145) mmol/L Potassium 4.6 (3.5-5.1) mmol/L Chloride 105 (98-107) mmol/L Carbon Dioxide 24 (22-30) mmol/L Anion Gap 8 mmol/L BUN 20 (9-20) mg/dL Creatinine 0.63 L (0.66-1.25) mg/dL Est GFR (CKD-EPI)AfAm >90 (>60 ml/min/1.73 sqM) Est GFR (CKD-EPI)NonAf >90 (>60 ml/min/1.73 sqM) Glucose 108 H (74-99) mg/dL Plasma Lactic Acid Son 1.4 (0.7-2.0) mmol/L Calcium 8.7 (8.4-10.2) mg/dL Magnesium 2.0 (1.6-2.3) mg/dL Total Bilirubin 0.6 (0.2-1.3) mg/dL AST 19 (17-59) U/L ALT 14 (4-49) U/L Alkaline Phosphatase 67 (38-126) U/L Total Protein 6.3 (6.3-8.2) g/dL Albumin 3.8 (3.5-5.0) g/dL Amylase 53 (30-110) U/L Lipase 69 (23-300) U/L Urine Color Urine Appearance (Clear) Urine pH (5.0-8.0) Ur Specific [place] (1.001-1.035) Urine Protein (Negative) Urine Glucose (UA) (Negative) Urine Ketones (Negative) Urine Blood (Negative) Urine Nitrite (Negative) Urine Bilirubin (Negative) Urine Urobilinogen (<2.0) mg/dL Ur Leukocyte Esterase (Negative) Influenza Type A (PCR) Not Detected (Not Detectd) Influenza Type B (PCR) Not Detected (Not Detectd) RSV (PCR) Not Detected (Not Detectd) SARS-CoV-2 (PCR) Not Detected (Not Detectd) 03/09/25 03/09/25 Range/Units 20:05 21:37 WBC 8.76 (4.50-10.00) 10*3/uL RBC 4.64 (4.40-5.60) 10*6/uL Hgb 13.1 (13.0-17.0) g/dL Hct 40.9 (39.6-50.0) % MCV 88.1 (80.0-97.0) fL MCH 28.2 (27.0-32.0) pg MCHC 32.0 (32.0-37.0) g/dL Plt Count 291 (140-440) 10*3/uL MPV 8.9 L (9.5-12.2) fL Immature Gran % (Auto) 0.5 % Neutrophils % 87.4 % Lymphocytes % 6.4 % Monocytes % 5.0 % Eosinophils % 0.5 % Basophils % 0.2 % Immature Gran # 0.04 (0.00-0.04) 10*3/uL Neutrophils # 7.66 (1.80-7.70) 10*3/uL Lymphocytes # 0.56 L (0.90-5.00) 10*3/uL Monocytes # 0.44 (0.20-1.00) 10*3/uL Eosinophils # 0.04 (0.04-0.35) 10*3/uL Basophils # 0.02 (0.00-0.10) 10*3/uL Sodium (137-145) mmol/L Potassium (3.5-5.1) mmol/L Chloride (98-107) mmol/L Carbon Dioxide (22-30) mmol/L Anion Gap mmol/L BUN (9-20) mg/dL Creatinine (0.66-1.25) mg/dL Est GFR (CKD-EPI)AfAm (>60 ml/min/1.73 sqM) Est GFR (CKD-EPI)NonAf (>60 ml/min/1.73 sqM) Glucose (74-99) mg/dL Plasma Lactic Acid Son (0.7-2.0) mmol/L Calcium (8.4-10.2) mg/dL Magnesium (1.6-2.3) mg/dL Total Bilirubin (0.2-1.3) mg/dL AST (17-59) U/L ALT (4-49) U/L Alkaline Phosphatase (38-126) U/L Total Protein (6.3-8.2) g/dL Albumin (3.5-5.0) g/dL Amylase (30-110) U/L Lipase (23-300) U/L Urine Color Yellow Urine Appearance Clear (Clear) Urine pH 5.5 (5.0-8.0) Ur Specific [place] 1.025 (1.001-1.035) Urine Protein Negative (Negative) Urine Glucose (UA) Negative (Negative) Urine Ketones Negative (Negative) Urine Blood Negative (Negative) Urine Nitrite Negative (Negative) Urine Bilirubin Negative (Negative) Urine Urobilinogen <2.0 (<2.0) mg/dL Ur Leukocyte Esterase Negative (Negative) Influenza Type A (PCR) (Not Detectd) Influenza Type B (PCR) (Not Detectd) RSV (PCR) (Not Detectd) SARS-CoV-2 (PCR) (Not Detectd) - Radiology Data Radiology results: report reviewed, image reviewed Disposition Clinical Impression: Diarrhea, Abdominal cramping, Pneumonia Disposition: HOME SELF-CARE Instructions (If sedation given, give patient instructions): Acute Diarrhea (ED) Additional Instructions: Return to the emergency department with any new, worsening, or concerning symptoms. Take your antibiotics with food to see if that helps with the abdominal discomfort and diarrhea. You can try taking the Bentyl up to 4 times daily. This helps with abdominal cramping and diarrhea. You can also take the Lomotil you were provided within in the emergency department or [id number] Imodium. If you are able to collect a stool sample, use the container provided and bring it back to the hospital or to your primary care provider's office. Prescriptions: Dicyclomine [Bentyl] 10 mg PO QID PRN #30 capsule PRN Reason: Gi Upset Is patient prescribed a controlled substance at d/c from ED?: No Referrals: Alex Robbins DO [Primary Care Provider] - 1-2 days Time of Disposition: 21:44
[2025-03-09 19:45] VITALS: RESP 18
[2025-03-09 19:58] LABS: ALT 14 U/L (4-49); AST 19 U/L (17-59); African American GFR (CKD) >90 (>60 ml/min/1.73 sqM); Albumin 3.8 g/dL (3.5-5.0); Alkaline Phosphatase 67 U/L (38-126); Amylase 53 U/L (30-110); Anion Gap 8 mmol/L; Blood Urea Nitrogen 20 mg/dL (9-20); Calcium 8.7 mg/dL (8.4-10.2); Carbon Dioxide 24 mmol/L (22-30); Chloride 105 mmol/L (98-107); Glucose 108 mg/dL (74-99); Lipase 69 U/L (23-300); Non-African American GFR(CKD) >90 (>60 ml/min/1.73 sqM); Potassium 4.6 mmol/L (3.5-5.1); Sodium 137 mmol/L (137-145); Total Bilirubin 0.6 mg/dL (0.2-1.3); Total Protein 6.3 g/dL (6.3-8.2)
[2025-03-09 20:12] LABS: Basophils # (A) 0.02 10*3/uL (0.00-0.10); Basophils % (A) 0.2 %; Eosinophils # (A) 0.04 10*3/uL (0.04-0.35); Eosinophils % (A) 0.5 %; HCT 40.9 % (39.6-50.0); HGB 13.1 g/dL (13.0-17.0); Lymphocytes # (A) 0.56 10*3/uL (0.90-5.00); Lymphocytes % (A) 6.4 %; MCH 28.2 pg (27.0-32.0); MCV 88.1 fL (80.0-97.0); Mean Platelet Volume 8.9 fL (9.5-12.2); Monocytes # (A) 0.44 10*3/uL (0.20-1.00); Neutrophils # (A) 7.66 10*3/uL (1.80-7.70); Neutrophils % (A) 87.4 %; Platelet Count 291 10*3/uL (140-440); RBC 4.64 10*6/uL (4.40-5.60); RDW 14.7 % (11.5-14.5); WBC 8.76 10*3/uL (4.50-10.00)
[2025-03-09 20:20] LABS: Influenza A Not Detected (Not Detectd); Influenza B Not Detected (Not Detectd); RSV Not Detected (Not Detectd)
[2025-03-09 21:47] LABS: Appearance,Urine Clear (Clear); Bilirubin,Urine Negative (Negative); Blood,Urine Negative (Negative); Color,Urine Yellow; Glucose,Urine (UA) Negative (Negative); Ketones,Urine Negative (Negative); Leukocyte Esterase,Urine Negative (Negative); Nitrite,Urine Negative (Negative); PH, Urine 5.5 (5.0-8.0); Protein,Urine Negative (Negative); Specific Gravity,Urine 1.025 (1.001-1.035); Urobilinogen,Urine <2.0 mg/dL (<2.0)
[2025-03-09] MEDS: DIPHENOX-ATROP STARTER PACK 8 TAB BTL PO STA (21:52)
[2025-03-09 21:55] VITALS: BP 150/82; PULSE 70
== END 2025-03-09 21:55 | disposition home or self-care (01) ==
LOC: EC 18:20
DX: R10.30 Lower abdominal pain, unspecified (principal); J18.9 Pneumonia, unspecified organism; R19.7 Diarrhea, unspecified; J44.9 Chronic obstructive pulmonary disease, unspecified; Z87.891 Personal history of nicotine dependence
CPT/HCPCS: 36415; 80053; 82150; 83605; 83690; 83735; 85025; 81003; 87636; 71046; 99284; 96360; 96361; 96372; J0500

== ENCOUNTER → 2025-03-29 | Outpatient (CLI) | payer MEDICARE ==
--- NOTE | 2025-03-29 22:07 | XR ---
EXAMINATION TYPE: XR chest 2V DATE OF EXAM: 03/29/2025 12:44 PM COMPARISON: 03/09/2025 CLINICAL INDICATION: Male, 69 years old with history of J18.9 PNEUMONIA, TECHNIQUE: XR chest 2V view(s) obtained. FINDINGS: The heart size is enlarged. The pulmonary vasculature is normal. Right lower lobe infiltrate is present. IMPRESSION: 1. Cardiomegaly 2. Right lower lobe lung opacity. Correlate for pneumonia. Follow-up is recommended. Finding is a ken nge from prior study. [facility], , 03/29/2025 10:05 PM
== END | disposition home or self-care (01) ==
LOC: RADXRMAIN 12:30
PROVIDERS: ATTEND Family Medicine
DX: J18.9 Pneumonia, unspecified organism (principal); I51.7 Cardiomegaly; J98.4 Other disorders of lung
CPT/HCPCS: 71046